=== PATIENT | male | born 1950 | race African-American/Black ===

== ENCOUNTER 2019-06-05 20:42 | Emergency (ER) | payer MEDICARE, MEDICAID, SELFPAY ==
--- NOTE | ~2019-06-05 | CT_ITS ---
EXAMINATION: CT brain wo con DATE: 06/05/2019 22:57 INDICATION: Headache and vision changes. TECHNIQUE: Computed tomography (CT) of the head was performed without intravenous contrast. Sagittal and coronal reconstructions were performed. The mA was adjusted according to patient size. Iterative reconstruction technique was employed. The dose-length product was 756.67 mGy-cm. COMPARISON: head CT dated 09/19/2018 FINDINGS: Again seen is a small to moderate sized region of encephalomalacia in the left frontal lobe consisten t with chronic infarct. Additional small old lacunar infarct at the left lentiform nucleus. No acute intracranial hemorrhage, acute infarction or abnormal extra axial fluid collection. There is mild sca ttered white matter hypoattenuation consistent with chronic small vessel ischemic disease. Ventricles are normal and symmetric with normal developmental variant cavum septum pellucidum et vergae. No mas s/mass effect. The orbits, paranasal sinuses and mastoid air cells are normal. IMPRESSION: 1. No acute intracranial process. 2. 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 3. Mild scattered white matter hypoattenuation consistent with chronic small vessel ischemic disease. Reviewed, dictated and finalized at location A. UME CUTTER IMPRESSION: 1. No acute intracranial process. 2. Chronic small to moderate-sized left frontal lobe infarct and small old lacu isaías infarct at the left lentiform nucleus. 3. Mild scattered white matter hypoattenuation consistent with chronic small ve ssel ischemic disease.
--- NOTE | ~2019-06-05 | XR_ITS ---
EXAMINATION: XR knee RT 3V DATE: 06/05/2019 23:07 INDICATION: Knee pain and swelling TECHNIQUE: Anteroposterior, oblique and crosstable lateral views of the right knee were obtained COMPARISON: 03/04/2019 FINDINGS: Severe tricompartmental osteoarthritis with unchanged remodeling of the articular surfaces at both si eric of the medial compartment resulting in mild genu varus. At least moderate joint space narrowing w ith large marginal osteophytes in the patellofemoral compartment and small marginal osteophyte in the slightly widened lateral compartment. No fracture. Prominent cystic change at the posterolateral asp ect of the lateral tibial plateau which could be related to arthritis at the proximal tibiofibular shun int. Unchanged moderate sized right knee joint effusion at the suprapatellar pouch. IMPRESSION: 1. No significant interval change in severe medial compartment predominant tricompartmental osteoarth ritis with likely reactive moderate-sized right knee joint effusion. No acute osseous abnormality. Reviewed, dictated and finalized at location A. CH MECHANIC IMPRESSION: 1. No significant interval change in severe medial compartment predominant tric ompartmental osteoarthritis with likely reactive moderate-sized right knee join t effusion. No acute osseous abnormality.
--- NOTE | ~2019-06-05 | XR_ITS ---
EXAMINATION: XR chest 2V DATE: 06/05/2019 23:07 INDICATION: Presyncope TECHNIQUE: frontal and lateral views of the chest were obtained. COMPARISON: Chest radiograph dated 12/07/2018 FINDINGS: The lungs remain clear with no focal airspace opacities, pulmonary edema, pleural effusion or pneumot horax. The cardiomediastinal silhouette is normal. Atherosclerotic aorta. There are bridging osteophy dina at multiple levels in the spine, consistent with diffuse idiopathic skeletal hyperostosis (DISH). IMPRESSION: 1. No acute cardiopulmonary disease. Reviewed, dictated and finalized at location A. OR OPERATOR
[2019-06-05 20:45] VITALS: BP 132/74; PULSE 86; RESP 22; TEMP 37.4; O2SAT 100
--- NOTE | 2019-06-05 22:33 | ECG_ITS ---
Measurements Intervals [place] Rate: 67 P: 69 HI: 189 QRS: 55 QRSD: 92 T: 62 QT: 390 QTc: 414 Interpretive Statements SINUS RHYTHM VOLTAGE CRITERIA FOR LVH BORDERLINE ECG Electronically Signed On 06-06-2019 6:45:05 ISOBUTYLENE OPERATOR CHIEF by Cody Stevens D.O.
[2019-06-05 23:05] LABS: Basophils Absolute Auto 0.1 K/mm3 (0.0-0.1); Basophils Percent Auto 0.8 % (0.2-1.2); Eosinophils Absolute Auto 0.1 K/mm3 (0-0.3); Eosinophils Percent Auto 0.8 % (0-4.4); Hematocrit 41.7 % (42.0-52.0); Hemoglobin 13.1 g/dL (14.0-18.0); Immature Granulocyte Absolute 0.01 K/mm3 (0.00-0.031); Immature Granulocyte Percent A 0.1 % (0-0.5); Lymphocytes Absolute Auto 2.88 K/mm3 (0.9-3.2); Lymphocytes Percent Auto 38.9 % (18.3-44.2); Mean Corpuscular HGB Conc 31.4 g/dl (32-36); Mean Corpuscular Hemoglobin 29.1 pg (26-34); Mean Corpuscular Volume 92.7 fl (80-100); Mean Platelet Volume 9.8 fl (7.4-10.4); Monocytes Absolute Auto 0.5 K/mm3 (0.1-0.6); Monocytes Percent Auto 6.9 % (2.6-8.5); Neutrophils Absolute Auto 3.9 K/mm3 (1.3-6.7); Neutrophils Percent Auto 52.5 % (45.5-73.1); Platelet Count Result 242 k/mm3 (150-375); Red Cell Distribution Width 13.2 % (11.5-14.5); White Blood Count 7.4 K/mm3 (4.5-10.0)
[2019-06-05 23:10] VITALS: BP 102/75; PULSE 66; RESP 14; O2SAT 97
[2019-06-05 23:16] LABS: Alanine Aminotransferase 12 U/L (4-50); Albumin Level 4.2 g/dL (3.5-5.1); Alkaline Phosphatase 74 U/L (38-126); Aspartate Amino Transferase 25 U/L (17-59); Bilirubin,Total 0.4 mg/dL (0.2-1.3); Blood Urea Nitrogen 24 mg/dL (9-20); Calcium 9.3 mg/dL (8.4-10.2); Carbon Dioxide 24 mmol/L (22-30); Chloride 104 mmol/L (98-107); Creatine Kinase 212 U/L (55-170); Estimated CRCL calculation 57 ml/min; Estimated Glomerular Filt Rate > 60; Glucose 80 mg/dL (75-110); Potassium 3.9 mmol/L (3.4-5.0); Sodium 137 mmol/L (137-145)
[2019-06-05 23:17] LABS: Lactic Acid Reflex 0.7 mmol/L (0.7-2.1)
[2019-06-05 23:21] LABS: INR 1.2
[2019-06-05 23:22] LABS: Partial Thromboplastin Time 33.5 SECONDS (22.3-36.8)
--- NOTE | 2019-06-05 23:28 | ED.LOWEXIN ---
HPI - Extremity Injury (Lower) General Chief Complaint: Extremity Injury, Lower <ARI Alexandra Last Filed: 06/06/19 01:37> Stated Complaint: leg pain <ARI Alexandra Last Filed: 06/06/19 01:37> Time Seen by Provider: 06/05/19 22:16 <ARI Alexandra Last Filed: 06/06/19 01:37> Source: patient <ARI Alexandra Last Filed: 06/06/19 01:37> Mode of arrival: ambulatory <ARI Alexandra Last Filed: 06/06/19 01:37> Limitations: other (poor historian) <ARI Alexandra Last Filed: 06/06/19 01:37> History of Present Illness HPI Narrative: This is a 68 year old male that presents to the ER for right knee pain x 20 years. Reports he is homeless and was doing a lot of walking the last couple days. Reports increasing pain and swelling in the right knee. Also reports some dysuria. Reports he has had some blurry vision the last couple days. Also reports he almost felt like he was going to pass out. Denies fever, cold symptoms, chest pain, shortness of breath, abdominal pain, vomiting, or eye pain. <ARI Alexandra Last Filed: 06/06/19 01:37> Related Data Allergies/Adverse Reactions: Allergies Allergy/AdvReac Type Severity Reaction Status Date / Time No Known Allergies Allergy Verified 06/05/19 23:17 <ARI Alexandra Last Filed: 06/06/19 01:37> Review of Systems Review of Systems: Narrative: CONSTITUTIONAL: Denies fever EYES: Reports visual change. Denies redness, or discharge. ENT: Denies rhinorrhea, congestion, sore throat CARDIOVASCULAR: Denies chest pain or edema. RESPIRATORY: Denies cough or dyspnea. GASTROINTESTINAL: Denies abdominal pain, nausea, vomiting GENITOURINARY: Reports dysuria. Denies hematuria. NEUROLOGIC: Denies headache, numbness, or weakness. <ARI Alexandra Last Filed: 06/06/19 01:37> All systems reviewed & are unremarkable except as noted in HPI and below <Kristen Gautam PA-C - Last Filed: 06/06/19 01:37> [facility] Past Medical History Medical History: Medical History (Updated 06/06/19 @ 01:37 by Kristen Gautam PA-C) Arthritis History of anxiety History of CHF (congestive heart failure) History of depression <Kristen Gautam PA-C - Last Filed: 06/06/19 01:37> Social History Social History: Social History (Updated 06/06/19 @ 01:30 by Kristen Gautam PA-C) Smoking status: Current every day smoker Substance use type: crack/cocaine Gender identity (if verbalized by the patient): Male <Kristen Gautam PA-C - Last Filed: 06/06/19 01:37> Exam Narrative: Exam Narrative: GENERAL: Well-appearing, well-nourished, and in no acute distress. HEAD: Normocephalic, atraumatic. EYES: EOMI. left pupil larger than the right and irregular. No foreign bodies noted. No conjunctival injection or discharge. Vision 20/70 in both eyes ENT: Nares clear, no rhinorrhea or epistaxis. Mucous membranes moist. Oropharynx without tonsillar hypertrophy exudate or other lesions. Bilateral TMs pearly valencia non-bulging NECK: Supple. No adenopathy or masses. No carotid bruits or JVD CHEST: Clear to auscultation. No respiratory distress. No wheezes rales or rhonchi HEART: Regular rate and rhythm. No murmur heard. Normal peripheral pulses. ABDOMEN: Soft, nontender, nondistended, normal active bowel sounds. EXTREMITIES: Normal range of motion. Mild edema of the right knee, no erythema or warmth. Strength equal in bilateral upper and lower extremities (5/5) SKIN: Warm, dry, no rash. NEURO: No focal deficits. Alert and oriented x3. CN II-XII grossly intact PSYCH: Normal mood and affect <Kristen Gautam PA-C - Last Filed: 06/06/19 01:37> Course Consultations Consultation #1: Spoke with [facility] who would prefer patient be transferred for further evaluation of vision changes <Kristen Gautam PA-C - Last Filed: 06/06/19 01:37> Date: 06/06/19 <Kristen Gautam PA-C - Last Filed: 06/06
[2019-06-06 00:16] LABS: Add Urine Microscopic? YES; Appearance Urine Clear (Clear); Bilirubin Urine Negative (Negative); Blood Urine 1+ (Negative); Color Urine Yellow (Yellow); Glucose Urine UA Negative (Negative); Ketones Urine 1+ mg/dL (Negative); Leukocyte Esterase Ur Negative LEU/UL (Negative); Mucus Urine Rare /lpf; Nitrate Urine Negative (Negative); Protein Urine Negative (Negative); RBC Urine 0-2 /hpf (0-2); Squamous Epithelial Cell Urine Few /hpf (Few)
[2019-06-06 00:25] LABS: Specific Grav Ur 1.031 (1.001-1.035)
[2019-06-06 01:53] VITALS: BP 111/61; PULSE 70; RESP 18; TEMP 37; O2SAT 97
[2019-06-06] MEDS: ACETAMINOPHEN 500 MG TABLET 1000 MG PO (03:19)
[2019-06-06 04:52] VITALS: BP 110/69; PULSE 63; RESP 16; TEMP 36.7; O2SAT 100
[2019-06-06 06:33] VITALS: BP 127/79; PULSE 62; RESP 16; TEMP 36.8; O2SAT 99
== END 2019-06-06 06:36 | disposition short-term general hospital (02) ==
PROVIDERS: Physician Assistant; Emergency Provider Emergency Medicine; PCP Emergency Medicine
DX: H53.8 Other visual disturbances (principal); M19.90 Unspecified osteoarthritis, unspecified site; R30.0 Dysuria; I50.9 Heart failure, unspecified; F41.9 Anxiety disorder, unspecified; F32.9 Major depressive disorder, single episode, unspecified
CPT/HCPCS: 36415; 70450; 71046; 73562; 80053; 81001; 82550; 83605; 85025; 85610; 85730; 87086; 93005; 99285; A9270

== ENCOUNTER 2019-10-01 20:33 | Emergency (ER) | payer MEDICARE, MEDICAID, SELFPAY ==
--- NOTE | ~2019-10-01 | XR_ITS ---
EXAMINATION: XR knee RT min 4V EXAM DATE: 10/01/2019 23:37 INDICATION: No known recent injury provided at this time. Pain of the right knee. TECHNIQUE: Right knee frontal, crosstable lateral, orthogonal oblique projections for interpretation . Comparison is made to prior examination from 06/05/2019. FINDINGS: There is severe patellofemoral and medial tibiofemoral compartment primary osteoarthritis. Again there is moderate-sized right knee joint effusion. There are no acute fractures or dislocation s identified. There is no subcutaneous gas. Faint vascular calcifications. There are no radiopaque foreign bodies. There is no significant interval change. IMPRESSION: 1. Right knee exam without acute osseous findings. 2. Severe osteoarthritis. 3. Moderate joint effusion. Reviewed, dictated and finalized at location A.
[2019-10-01 20:38] VITALS: BP 126/93; PULSE 92; RESP 16; TEMP 36.6; O2SAT 100
--- NOTE | 2019-10-01 21:35 | PC.NURSE ---
Pt states he had an appointment with [facility] for surgery on his eyes, but they cancelled the appointment possibly due to Covid. Pt states he has not been able to get another appointment yet but will keep trying. Pt states his vision is cloudy and has been that way for a few years
[2019-10-01 22:30] VITALS: BP 121/84; PULSE 80; RESP 18; O2SAT 98
[2019-10-02 00:30] VITALS: BP 128/88; PULSE 76; RESP 18; O2SAT 99
[2019-10-02] MEDS: ACETAMINOPHEN 500 MG TABLET 1000 MG PO (00:45)
[2019-10-02] MEDS: POLYMYXIN/TRIMETHOPRIM OPHTH 10 ML DROPS 1 DROP EACH EYE (03:14)
--- NOTE | 2019-10-02 03:44 | ED.LOWEXIN ---
HPI - Extremity Injury (Lower) General Chief Complaint: Extremity Injury, Lower Stated Complaint: right knee pain Time Seen by Provider: 10/01/19 22:21 Source: patient Mode of arrival: ambulatory Limitations: no limitations History of Present Illness HPI Narrative: This patient is a 68 year old homeless male with history of right knee osteoarthritis who presents for evaluation of right knee pain. Patient states he has long standing history of right knee pain and he has been told he needs a knee replacement. He has come for evaluation of his knee because he states there is a bone sticking out . Patient denies no knee injury . Patient also states that his vision is worsening. PAtient states he was seen by eye doctors at [facility] a few months ago for same complaint. He states he was referred to an disease management nurse in [place]. He is unsure of diagnosis but the business card says a glaucoma specialists. He states he has pain to his eyes. He reports he is able to see with both eyes open but it is blurry when he covers one eye. He reports symptoms are worse at night. MD complaint: knee injury Onset (ago): year(s) Related Data Allergies Allergy/AdvReac Type Severity Reaction Status Date / Time No Known Allergies Allergy Verified 06/05/19 23:17 Review of Systems Review of Systems: All systems reviewed & are unremarkable except as noted in HPI and below Constitutional: Constitutional: Denies chills, Denies fever(s) and Denies weakness Eyes: Eyes: Reports blurry vision, Denies exophthalmos, Denies diplopia, Denies spots in vision and Denies tunnel vision ENT: Denies dizziness Cardiovascular: Cardiovascular: Denies chest pain Musculoskeletal: Musculoskeletal: Reports arthralgias and Reports joint swelling PMFSH Past Medical History Medical History (Updated 10/02/19 @ 04:02 by Mouna Almanzar MD) Arthritis History of anxiety History of CHF (congestive heart failure) History of depression Social History Social History (Updated 06/06/19 @ 01:30 by Kristen Gautam PA-C) Smoking status: Current every day smoker Substance use type: crack/cocaine Gender identity (if verbalized by the patient): Male Exam Narrative: Exam Narrative: GENERAL: Well-appearing, well-nourished, and in no acute distress. HEAD: Normocephalic, atraumatic EARS: TM's clear bilaterally without erythema or dullness NOSE: Nares clear, no rhinorrhea or epistaxis THROAT:Mucous membranes moist, Oropharynx normal without erythema, exudate, peritonsillar swelling or fluctuance NECK: Supple, without lymphadenopathy or mass RESPIRATORY: No respiratory distress, Airway patent, Respirations non-labored, Clear to auscultation without rales, rhonchi or wheeze HEART: Regular rate and rhythm. No murmur heard. Normal peripheral pulses. ABDOMEN: Soft, nontender, nondistended, normal active bowel sounds. No masses. No rebound or guarding, No organomegaly. SKIN: Warm, dry, normal color without rash NEURO: Alert and oriented x3. CN 2-12 grossly intact. No focal deficits. PSYCH: Normal mood and affect. Eyes: Eyelids: eyelids normal Conjunctivae: conjunctivae normal Cornea: corneas abnormal (small linear uptake to lower left cornea) and fluorescein used Pupils: not dilated and Pupil size comments (right 2 with left 4 mm Reactive) EOM: EOMs intact bilaterally Direct Ophthalmoscopy: No no photophobia Other: Ocular pressure to right- 10 left - 9 Neuro: General: patient oriented x3 and moves all extremities Other: patient able to ambulate with mild limp Extrem: Other: mild swelling to right knee, no increased warmth or erythema Course Reevaluation(s) Reevaluation #1: Patient does not have elevated eye pressure. He does have mild abrasion so will give drops. I have stressed the he needs to follow up with his disease management nurse . His knee is stable Date: 10/02/19 Time: 03:58 Vital Signs Vital signs: Vital Signs Temperature
== END 2019-10-02 07:07 | disposition home or self-care (01) ==
PROVIDERS: Emergency Provider General Practice
DX: M17.11 Unilateral primary osteoarthritis, right knee (principal); H53.8 Other visual disturbances; I50.9 Heart failure, unspecified; F17.200 Nicotine dependence, unspecified, uncomplicated
CPT/HCPCS: 73564; 99283; A9270

== ENCOUNTER 2020-01-09 21:50 | Emergency (ER) | payer MEDICARE, MEDICAID, SELFPAY ==
[2020-01-09 22:16] VITALS: BP 124/49; PULSE 69; RESP 16; TEMP 36.4; O2SAT 100
[2020-01-09 22:34] LABS: Add Urine Microscopic? YES; Appearance Urine Clear (Clear); Bilirubin Urine Negative (Negative); Blood Urine 1+ (Negative); Color Urine Yellow (Yellow); Glucose Urine UA Negative (Negative); Ketones Urine Negative (Negative); Leukocyte Esterase Ur Negative LEU/UL (Negative); Mucus Urine Few /lpf; Nitrate Urine Negative (Negative); Protein Urine Negative (Negative); Squamous Epithelial Cell Urine Few /hpf (Few); WBC Urine 0-3 /hpf
[2020-01-09 22:39] LABS: Specific Grav Ur 1.032 (1.001-1.035)
[2020-01-10 00:25] VITALS: BP 118/51; PULSE 63; RESP 16; TEMP 36.2; O2SAT 100
--- NOTE | 2020-01-10 00:40 | ED.BACK ---
HPI - Back Pain/Injury General Chief Complaint: Back Pain/Injury Stated Complaint: back pain Time Seen by Provider: 01/10/20 00:40 History of Present Illness HPI Narrative: Sudden onset of pain in left flank and LUQ shortly before arrival here. Started after eating. He denies having this in the past. No wekaness, numbness, injury. He has not tried anything for his sy,ptoms Related Data Allergies Allergy/AdvReac Type Severity Reaction Status Date / Time No Known Allergies Allergy Verified 06/05/19 23:17 Review of Systems Review of Systems: All systems reviewed & are unremarkable except as noted in HPI and below Constitutional: Constitutional: Denies fever(s) and Denies weakness Cardiovascular: Cardiovascular: Denies chest pain Respiratory: Respiratory: Denies dyspnea Gastrointestinal: Gastrointestinal: Reports abdominal pain, Denies constipation, Denies diarrhea and Denies nausea Genitourinary: Genitourinary: Denies hematuria and Reports dysuria Musculoskeletal: Musculoskeletal: Reports back pain Neurologic: Denies dizziness and Denies weakness [facility] Past Medical History Medical History Arthritis History of anxiety History of CHF (congestive heart failure) History of depression Social History Social History Smoking status: Current every day smoker Substance use type: crack/cocaine Gender identity (if verbalized by the patient): Male Exam Const: General: no acute distress and alert Orientation/consciousness: patient oriented x3 HENMT: Head: normal to inspection Chest: Chest palpation & inspection: normal inspection of the chest and no tenderness Resp: Effort & Inspection: normal respiratory effort Auscultation: clear to auscultation bilaterally Cardio: Rate: regular rate Rhythm: regular rhythm GI: Other: Nondistended, nontender Back/Spine/Pelvis: Back: no CVA tenderness Skin: General skin exam: normal color Neuro: General: patient oriented x3, moves all extremities, no focal motor deficits and CN's II-XI intact bilaterally Speech: normal speech Extrem: General: normal to inspection and no edema Course Vital Signs Vital signs: Vital Signs Temperature 36.4 C 01/09/20 22:16 Pulse Rate 69 01/09/20 22:16 Respiratory Rate 16 01/09/20 22:16 Blood Pressure 124/49 L 01/09/20 22:16 Pulse Oximetry 100 01/09/20 22:16 Temperature 36.2 C L 01/10/20 00:25 Pulse Rate 67 01/10/20 03:28 Respiratory Rate 16 01/10/20 03:28 Blood Pressure 129/71 01/10/20 03:28 Pulse Oximetry 97 01/10/20 03:28 MDM - Back Pain/Injury MDM Narrative Medical decision making narrative: Exam and history benign. Labs unremarkable. Pain improved with tylenol and toradol. Differential Diagnosis Differential diagnosis: Likely sciatica, strain of lumbar region, renal colic and pyelonephritis Medical Records Attestation: I reviewed the patient's medical records. Lab Data Attestation: I reviewed the patient's lab results. Result diagrams: 01/10/20 01:19 01/10/20 01:19 Labs: Lab Results 01/09/20 01/10/20 01/10/20 Range/Units 22:22 01:19 01:19 WBC 6.2 (4.5-10.0) K/mm3 RBC 4.03 L (4.6-6.20) M/mm3 Hgb 12.0 L (14.0-18.0) g/dL Hct 37.9 L (42.0-52.0) % MCV 94.0 (80-100) fl MCH 29.8 (26-34) pg MCHC 31.7 L (32-36) g/dl RDW 13.9 (11.5-14.5) % Plt Count 234 (150-375) k/mm3 MPV 9.5 (7.4-10.4) fl Immature Gran % (Auto) 0.2 (0-0.5) % Neut % (Auto) 52.2 (45.5-73.1) % Lymph % (Auto) 38.2 (18.3-44.2) % Sanders % (Auto) 6.9 (2.6-8.5) % Eos % (Auto) 1.9 (0-4.4) % Baso % (Auto) 0.6 (0.2-1.2) % Lymph # (Auto) 2.37 (0.9-3.2) K/mm3 Sanders # (Auto) 0.4 (0.1-0.6) K/mm3 Eos # (Auto) 0.1 (0-0.3) K/mm3 Baso # (Auto) 0.0 (0.0-0.1) K/mm3 Abs Immat Gran (auto) 0.01 (
[2020-01-10 01:28] LABS: Basophils Percent Auto 0.6 % (0.2-1.2); Eosinophils Absolute Auto 0.1 K/mm3 (0-0.3); Eosinophils Percent Auto 1.9 % (0-4.4); Hematocrit 37.9 % (42.0-52.0); Immature Granulocyte Absolute 0.01 K/mm3 (0.00-0.031); Immature Granulocyte Percent A 0.2 % (0-0.5); Lymphocytes Absolute Auto 2.37 K/mm3 (0.9-3.2); Lymphocytes Percent Auto 38.2 % (18.3-44.2); Mean Corpuscular HGB Conc 31.7 g/dl (32-36); Mean Corpuscular Hemoglobin 29.8 pg (26-34); Mean Platelet Volume 9.5 fl (7.4-10.4); Monocytes Absolute Auto 0.4 K/mm3 (0.1-0.6); Monocytes Percent Auto 6.9 % (2.6-8.5); Neutrophils Absolute Auto 3.2 K/mm3 (1.3-6.7); Neutrophils Percent Auto 52.2 % (45.5-73.1); Platelet Count Result 234 k/mm3 (150-375); Red Blood Count 4.03 M/mm3 (4.6-6.20); Red Cell Distribution Width 13.9 % (11.5-14.5); White Blood Count 6.2 K/mm3 (4.5-10.0)
[2020-01-10 01:45] LABS: Alanine Aminotransferase 8 U/L (4-50); Albumin Level 3.7 g/dL (3.5-5.1); Alkaline Phosphatase 53 U/L (38-126); Anion Gap 5 mmol/L (8-16); Aspartate Amino Transferase 18 U/L (17-59); Bilirubin,Total 0.4 mg/dL (0.2-1.3); Blood Urea Nitrogen 23 mg/dL (9-20); Calcium 8.4 mg/dL (8.4-10.2); Carbon Dioxide 25 mmol/L (22-30); Chloride 109 mmol/L (98-107); Estimated CRCL calculation 53 ml/min; Estimated Glomerular Filt Rate > 60; Glucose 83 mg/dL (75-110); Sodium 139 mmol/L (137-145)
[2020-01-10 01:50] LABS: Lipase 282 U/L (23-300)
[2020-01-10 02:30] VITALS: BP 127/74; PULSE 60; RESP 17; O2SAT 99
[2020-01-10] MEDS: KETOROLAC (*BKC) 60 MG/2 ML VIAL IM (02:53)
[2020-01-10 03:28] VITALS: BP 129/71; PULSE 67; RESP 16; O2SAT 97
== END 2020-01-10 03:33 | disposition home or self-care (01) ==
PROVIDERS: Emergency Provider Emergency Medicine
DX: R10.32 Left lower quadrant pain (principal); M54.9 Dorsalgia, unspecified; M19.90 Unspecified osteoarthritis, unspecified site; I50.9 Heart failure, unspecified; F17.200 Nicotine dependence, unspecified, uncomplicated
CPT/HCPCS: 36415; 80053; 81001; 83690; 85025; 96372; 99283; J1885

== ENCOUNTER 2020-03-23 16:41 | Emergency (ER) | payer MEDICARE, MEDICAID, SELFPAY ==
[2020-03-23 16:44] VITALS: BP 135/55; PULSE 100; RESP 18; TEMP 36.4; O2SAT 100
--- NOTE | 2020-03-23 17:10 | PC.NURSE ---
patient brought back to ED room 21 with c/o right knee pain and vision changes. see triage notes. patient states he knows that I have glaucoma . states that during this pandemic he has not been able to see a physician or be treated. also needs set up for knee surgery. states he was seen here in the past and advised he needed a knee replacement. advised patient that glaucoma cannot be treated in ED. patient is mainly here for referral to [place] to get this all taken care of .
--- NOTE | 2020-03-23 17:49 | PC.NURSE ---
provider in room.
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
--- NOTE | 2020-03-23 18:10 | PC.NURSE ---
per provider, patient will be given contact number at [facility]. patient to call [phone] for assistance.they can set up all follow up appointments that patient needs.
== END 2020-03-23 18:54 | disposition home or self-care (01) ==
PROVIDERS: Emergency Provider Emergency Medicine
DX: M17.11 Unilateral primary osteoarthritis, right knee (principal); I50.9 Heart failure, unspecified; F17.200 Nicotine dependence, unspecified, uncomplicated
CPT/HCPCS: 99281

== ENCOUNTER 2020-04-04 23:34 | Emergency (ER) | payer MEDICARE, MEDICAID, SELFPAY ==
[2020-04-04 23:37] VITALS: BP 136/59; PULSE 77; RESP 16; TEMP 36.6; O2SAT 99
--- NOTE | 2020-04-05 00:02 | ED.ABDPAIN ---
HPI - Abdominal Pain General Chief Complaint: Urogenital-Male Stated Complaint: low back pain Time Seen by Provider: 04/04/20 23:52 History of Present Illness HPI narrative: Lower abdominal pain for the past few days. Associated with difficulty and pain with urination. No fever, chills, nausea, vomiting, diarrhea. Related Data Allergies Allergy/AdvReac Type Severity Reaction Status Date / Time No Known Allergies Allergy Verified 04/04/20 23:43 Review of Systems Review of Systems: All systems reviewed & are unremarkable except as noted in HPI and below Constitutional: Constitutional: Denies chills and Denies fever(s) Cardiovascular: Cardiovascular: Denies chest pain Respiratory: Respiratory: Denies dyspnea Gastrointestinal: Gastrointestinal: Reports abdominal pain, Denies constipation, Denies diarrhea, Denies nausea and Denies vomiting Genitourinary: Genitourinary: Reports dysuria Musculoskeletal: Musculoskeletal: Reports back pain Neurologic: Denies confusion and Denies weakness PMFSH Past Medical History Medical History Arthritis History of anxiety History of CHF (congestive heart failure) History of depression Social History Social History Smoking status: Current every day smoker Substance use type: crack/cocaine Gender identity (if verbalized by the patient): Male Exam Const: General: healthy appearing, no acute distress and alert Orientation/consciousness: patient oriented x3 HENMT: Head: normal to inspection Neck: Neck: normal visual inspection and no lymphadenopathy Chest: Chest palpation & inspection: no tenderness Resp: Effort & Inspection: normal respiratory effort Auscultation: clear to auscultation bilaterally, no rales, no rhonchi and no wheezes Cardio: Jugular venous distension: no JVD Rate: regular rate Rhythm: regular rhythm Heart sounds: no murmurs GI: Inspection: non-distended GI Palp: Yes Soft to palpation : General: Yes Bladder palpation abnormal tender; not distended Skin: General skin exam: normal color Neuro: General: patient oriented x3, moves all extremities, no focal motor deficits and CN's II-XI intact bilaterally Speech: normal speech Gait exam (Neuro): Normal gait present Extrem: General: no edema Psych: Appearance: well kempt Affect: normal affect Course Vital Signs Vital signs: Vital Signs Temperature 36.6 C 12/04/20 23:37 Pulse Rate 77 04/04/20 23:37 Respiratory Rate 16 04/04/20 23:37 Blood Pressure 136/59 L 04/04/20 23:37 Pulse Oximetry 99 04/04/20 23:37 Temperature 36.6 C 04/04/20 23:37 Pulse Rate 68 04/05/20 05:15 Respiratory Rate 16 04/05/20 05:15 Blood Pressure 108/72 04/05/20 05:15 Pulse Oximetry 98 04/05/20 05:15 MDM - Abdominal Pain Differential Diagnosis Differential diagnosis: Likely calculus of kidney, constipation, diverticulitis, pancreatitis and other (UTI) Medical Records Attestation: I reviewed the patient's medical records. Lab Data Attestation: I reviewed the patient's lab results. Result diagrams: 04/05/20 01:00 04/05/20 01:00 Labs: Lab Results 04/05/20 04/05/20 04/05/20 Range/Units 01:00 01:00 01:00 WBC 6.4 (4.5-10.0) K/mm3 RBC 4.52 L (4.6-6.20) M/mm3 Hgb 14.2 (14.0-18.0) g/dL Hct 42.0 (42.0-52.0) % MCV 92.9 (80-100) fl MCH 31.4 (26-34) pg MCHC 33.8 (32-36) g/dl RDW 13.3 (11.5-14.5) % Plt Count 253 (150-375) k/mm3 MPV 10.3 (7.4-10.4) fl Immature Gran % (Auto) 0.6 H (0-0.5) % Neut % (Auto) 51.5 (45.5-73.1) % Lymph % (Auto) 38.6 (18.3-44.2) % [place] % (Auto) 7.5 (2.6-8.5) % Eos % (Auto) 0.9 (0-4.4) % Baso % (Auto) 0.9 (0.2-1.2) % Lymph # (Auto) 2.48 (0.9-3.2) K/mm3 [place] # (Auto) 0.5 (0.1-0.6) K/mm3 Eos # (Auto) 0.1 (0-0.3) K/mm3 Bas
[2020-04-05] MEDS: SODIUM CHLORIDE 0.9% IV 1,000 ML 999 ML IV CONT (01:00)
[2020-04-05 01:15] LABS: Basophils Absolute Auto 0.1 K/mm3 (0.0-0.1); Basophils Percent Auto 0.9 % (0.2-1.2); Eosinophils Absolute Auto 0.1 K/mm3 (0-0.3); Eosinophils Percent Auto 0.9 % (0-4.4); Hemoglobin 14.2 g/dL (14.0-18.0); Immature Granulocyte Absolute 0.04 K/mm3 (0.00-0.031); Immature Granulocyte Percent A 0.6 % (0-0.5); Lymphocytes Absolute Auto 2.48 K/mm3 (0.9-3.2); Lymphocytes Percent Auto 38.6 % (18.3-44.2); Mean Corpuscular HGB Conc 33.8 g/dl (32-36); Mean Corpuscular Hemoglobin 31.4 pg (26-34); Mean Corpuscular Volume 92.9 fl (80-100); Mean Platelet Volume 10.3 fl (7.4-10.4); Monocytes Absolute Auto 0.5 K/mm3 (0.1-0.6); Monocytes Percent Auto 7.5 % (2.6-8.5); Neutrophils Absolute Auto 3.3 K/mm3 (1.3-6.7); Neutrophils Percent Auto 51.5 % (45.5-73.1); Platelet Count Result 253 k/mm3 (150-375); Red Blood Count 4.52 M/mm3 (4.6-6.20); Red Cell Distribution Width 13.3 % (11.5-14.5); White Blood Count 6.4 K/mm3 (4.5-10.0)
[2020-04-05 01:23] LABS: Alanine Aminotransferase 10 U/L (4-50); Albumin Level 4.1 g/dL (3.5-5.1); Alkaline Phosphatase 64 U/L (38-126); Anion Gap 8 mmol/L (8-16); Aspartate Amino Transferase 23 U/L (17-59); Bilirubin,Total 0.4 mg/dL (0.2-1.3); Blood Urea Nitrogen 27 mg/dL (9-20); Calcium 9.1 mg/dL (8.4-10.2); Carbon Dioxide 26 mmol/L (22-30); Chloride 108 mmol/L (98-107); Estimated CRCL calculation 44 ml/min; Estimated Glomerular Filt Rate > 60; Glucose 106 mg/dL (75-110); Potassium 4.1 mmol/L (3.4-5.0); Sodium 142 mmol/L (137-145)
[2020-04-05 01:27] LABS: Add Urine Microscopic? YES; Appearance Urine Clear (Clear); Bacteria Urine Trace /hpf; Bilirubin Urine 2+ (Negative); Color Urine Amber (Yellow); Glucose Urine UA Negative (Negative); Ketones Urine Trace mg/dL (Negative); Leukocyte Esterase Ur 1+ LEU/UL (Negative); Mucus Urine Heavy /lpf; Nitrate Urine Negative (Negative); Protein Urine 1+ mg/dL (Negative); Squamous Epithelial Cell Urine Few /hpf (Few); WBC Urine 51-75 /hpf
[2020-04-05 01:29] LABS: INR 1.1; Partial Thromboplastin Time 31.5 SECONDS (22.3-36.8); Prothrombin Time 14.3 Seconds (11.1-14.7)
[2020-04-05 01:32] LABS: Blood Urine Negative (Negative); Specific Grav Ur 1.035 (1.001-1.035)
[2020-04-05 01:43] VITALS: BP 110/64; PULSE 62; RESP 16; O2SAT 98
[2020-04-05 05:15] VITALS: BP 108/72; PULSE 68; RESP 16; O2SAT 98
== END 2020-04-05 05:16 | disposition home or self-care (01) ==
PROVIDERS: Emergency Provider Emergency Medicine
DX: N39.0 Urinary tract infection, site not specified (principal); F17.200 Nicotine dependence, unspecified, uncomplicated; M19.90 Unspecified osteoarthritis, unspecified site; I50.9 Heart failure, unspecified
CPT/HCPCS: 36415; 80053; 81001; 85025; 85610; 85730; 87077; 87086; 87088; 96365; 99284; J0696; J7030

== ENCOUNTER 2020-09-23 09:34 | Emergency (ER) | payer MEDICARE, MEDICAID, SELFPAY ==
[2020-09-23] VITALS (15 sets, daily range): BP systolic 117–147; BP diastolic 53–85; PULSE 53–75; RESP 12–22; TEMP 36.3; O2SAT 98–100
--- NOTE | ~2020-09-23 | CT_ITS ---
EXAMINATION: CTA brain carotid DATE: 09/23/2020 10:24 INDICATION: Altered mental status. Confusion. TECHNIQUE: Computed tomographic angiography (CTA) of the head was performed without and with 100 mL O mnipaque-350 intravenous contrast. CTA of the neck was performed with intravenous contrast. Automated exposure control and iterative reconstruction technique were employed. The dose-length product was 1 869.50 mGy-cm. Maximum intensity projection and volume rendered 3D-reconstructions were created by vero dasilva technologist on a separate workstation. COMPARISON: Head CT 06/05/2019 FINDINGS: HEAD CTA: There is an old lacunar infarct in the left lentiform nucleus. There is an old infarct in l eft frontal lobe. There is a small old infarct in right parietal lobe. There are scattered areas of l ow attenuation in the cerebral white matter. There is no intracranial hemorrhage, acute infarction, o r abnormal intracranial mass lesion. The ventricles are normal in size. The orbits are normal. There is mild mucosal thickening in the paranasal sinuses. There is a trace right mastoid effusion. There i s multifocal dental disease. Right vertebral artery is dominant. There is no significant stenosis of basilar artery or the posterior cerebral arteries. The posterior communicating arteries are normal. T here is no significant stenosis of the intracranial internal carotid arteries or anterior cerebral ar teries. There is severe stenosis of proximal left middle cerebral artery. Anterior communicating brendan ry is normal. There is no aneurysm. NECK CTA: There is mild emphysema. There are no pathologically enlarged lymph nodes. There are nodule s in the thyroid measuring up to 7 mm, likely not clinically significant. 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 There is no significant stenosis of the vertebral arteries. There is plaque in t he proximal internal carotid arteries. There is 0% stenosis of the proximal right internal carotid ar garcia relative to normal distal artery lumen diameter (NASCET criteria). There is 0% stenosis of the p roximal left internal carotid artery relative to normal distal artery lumen diameter. There is severe cervical spondylosis. IMPRESSION: 1. 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 2. Stable moderate nonspecific cerebral white matter disease, which likely represents chronic small v essel ischemic disease. 3. Severe stenosis of proximal left middle cerebral artery. 4. 0% stenosis of the proximal internal carotid arteries relative to normal distal artery lumen diame ters (NASCET criteria). 5. I discussed this case with Dr. Pinto. Reviewed, dictated and finalized at location B. IMPRESSION: 1. Old infarcts in the left lentiform nucleus, left frontal lobe, and right par ietal lobe. 2. Stable moderate nonspecific cerebral white matter disease, which likely repr esents chronic small vessel ischemic disease. 3. Severe stenosis of proximal left middle cerebral artery. 4. 0% stenosis of the proximal internal carotid arteries relative to normal dis katie artery lumen diameters (NASCET criteria). 5. I discussed this case with Dr. Pinto.
--- NOTE | 2020-09-23 09:37 | ECG_ITS ---
Measurements Intervals [place] Rate: 61 P: 60 MA: 190 QRS: 37 QRSD: 90 T: 58 QT: 418 QTc: 421 Interpretive Statements SINUS RHYTHM EARLY PRECORDIAL R/S TRANSITION BASELINE ARTIFACT- I, II, III, AVR, AVL, AVF, V4-V6 BORDERLINE ECG Electronically Signed On 09-23-2020 10:04:35 CDT by Cody Stevens D.O.
[2020-09-23 09:52] LABS: Glucose Point of Care 119 mg/dl (65-105)
--- NOTE | 2020-09-23 10:01 | PC.NURSE ---
Pt off floor to CT via cart, accompanied by this RN, transport monitor applied
--- NOTE | 2020-09-23 10:02 | ED.GENADULT ---
HPI - General Adult General Chief complaint: Suspected CVA Stated complaint: CVA? 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 Patient reportedly was talking normal around 7:45 AM when his corporate physical security supervisor spoke with him on the phone. However, when his coworker was picking him up from bus stop around 8:30 AM, he was wondering around and having trouble talking. He also complains of some headache and right sided weakness. He states that he weakness started about the time he was being picked up for work. There is no known alleviating or exacerbating factor. Related Data Allergies Allergy/AdvReac Type Severity Reaction Status Date / Time No Known Allergies Allergy Verified 04/04/20 23:43 Review of Systems Constitutional: Constitutional: Denies chills, Denies fever(s), Reports headache(s) and Reports weakness Eyes: Eyes: Denies blurry vision ENT: Reports headache(s) and Denies neck pain Cardiovascular: Cardiovascular: Denies chest pain and Denies dyspnea Respiratory: Respiratory: Denies cough and Denies dyspnea Gastrointestinal: Gastrointestinal: Denies abdominal pain, Denies diarrhea, Denies nausea and Denies vomiting Genitourinary: Genitourinary: Denies hematuria and Denies dysuria Musculoskeletal: Musculoskeletal: Denies back pain and Denies neck pain Neurologic: Reports Abnormal speech present, Reports headache(s) and Reports weakness PMFSH Past Medical History Medical History (Updated 09/23/20 @ 14:52 by Evelin Pinto MD) Arthritis History of anxiety History of CHF (congestive heart failure) History of depression Social History Social History Smoking status: Current every day smoker Substance use type: crack/cocaine Gender identity (if verbalized by the patient): Male Exam Const: General: no acute distress and well developed Orientation/consciousness: oriented to person and oriented to place HENMT: Head: normocephalic Ears: external ears normal General nose exam: Normal external nose present Eyes: General: appearance normal, both eyes and all related structures Conjunctivae: conjunctivae normal Neck: Neck: normal visual inspection and full ROM Chest: Chest palpation & inspection: normal inspection of the chest and no tenderness Resp: Effort & Inspection: normal respiratory effort Auscultation: clear to auscultation bilaterally Cardio: Rate: regular rate Rhythm: regular rhythm GI: GI Palp: No abdominal tenderness and Yes Soft to palpation Skin: General skin exam: normal color and turgor normal Neuro: General: oriented to person and oriented to place Extrem: General: normal to inspection, full ROM and no pedal edema Psych: Appearance: grossly normal Mental Status: mental status grossly normal Affect: normal affect Course Reevaluation(s) Reevaluation #1: Rechecked. Patient still has right sided weakness and difficulty with speech. Discussed with patient about tPA for presumed stroke. Informed patient about the risks and benefits. The main risks include bleeding and allergic reaction. Patient agrees to proceed. Date: 09/23/20 Time: 10:45 Consultations Consultation #1: Discussed with Dr. Morales (neurology) at [place], who agrees to transfer patient to [facility]. Date: 09/23/20 Time: 11:14 Vital Signs Vital signs: Vital Signs Temperature 36.3 C L 09/23/20 09:41 Pulse Rate 62 09/23/20 09:41 Respiratory Rate 13 09/23/20 09:41 Blood Pressure 147/85 H 09/23/20 09:41 Pulse Oximetry 100 09/23/20 09:41 Temperature 36.3 C L 09/23/20 09:41 Pulse Rate 53 L 09/23/20 15:12 Respiratory Rate 12 09/23/20 15:12 Blood Pressure 145/85 H 09/23/20 15:12 Pulse Oximetry 98 09/23/20 15:12 Medical Decision Making Vital Signs Vital Signs: Vital Sign
[2020-09-23 10:03] LABS: Basophils Percent Auto 0.5 % (0.2-1.2); Eosinophils Absolute Auto 0.1 K/mm3 (0-0.3); Eosinophils Percent Auto 1.2 % (0-4.4); Hematocrit 44.4 % (42.0-52.0); Hemoglobin 14.3 g/dL (14.0-18.0); Immature Granulocyte Absolute 0.02 K/mm3 (0.00-0.031); Immature Granulocyte Percent A 0.3 % (0-0.5); Lymphocytes Percent Auto 17.8 % (18.3-44.2); Mean Corpuscular HGB Conc 32.2 g/dl (32-36); Mean Corpuscular Hemoglobin 29.9 pg (26-34); Mean Corpuscular Volume 92.7 fl (80-100); Mean Platelet Volume 9.8 fl (7.4-10.4); Monocytes Absolute Auto 0.4 K/mm3 (0.1-0.6); Monocytes Percent Auto 4.8 % (2.6-8.5); Neutrophils Absolute Auto 5.5 K/mm3 (1.3-6.7); Neutrophils Percent Auto 75.4 % (45.5-73.1); Platelet Count Result 230 k/mm3 (150-375); Red Blood Count 4.79 M/mm3 (4.6-6.20); Red Cell Distribution Width 13.5 % (11.5-14.5); White Blood Count 7.3 K/mm3 (4.5-10.0)
[2020-09-23 10:04] LABS: Estimated Glomerular Filt Rate > 60
[2020-09-23 10:17] LABS: INR 1.1; Prothrombin Time 14.7 Seconds (11.1-14.7)
[2020-09-23 10:18] LABS: Partial Thromboplastin Time 28.8 SECONDS (22.3-36.8)
--- NOTE | 2020-09-23 10:19 | PC.NURSE ---
Pt returned from CT. Speech more clear but still aphasic, cannot find his words. Reports R side headache just stays there and vision changes, pt clutching head with hand. [place] applied, call light within reach
--- NOTE | 2020-09-23 10:50 | PC.NURSE ---
Dr Pinto at bedside for reassessment, plan for tPA, pt agreeable. Pt stood up onto scale with x2 stand-by assist, urinated on self, all clothes removed and changed into clean gown, linens changed
[2020-09-23 11:11] LABS: Alanine Aminotransferase 10 U/L (4-50); Albumin Level 4.4 g/dL (3.5-5.1); Alkaline Phosphatase 85 U/L (38-126); Anion Gap 7 mmol/L (8-16); Aspartate Amino Transferase 26 U/L (17-59); Bilirubin,Total 0.4 mg/dL (0.2-1.3); Blood Urea Nitrogen 19 mg/dL (9-20); Calcium 9.1 mg/dL (8.4-10.2); Carbon Dioxide 28 mmol/L (22-30); Chloride 107 mmol/L (98-107); Estimated Glomerular Filt Rate > 60; Glucose 85 mg/dL (75-110); Potassium 4.4 mmol/L (3.4-5.0); Sodium 142 mmol/L (137-145)
--- NOTE | 2020-09-23 11:21 | PC.NURSE ---
Pt resting on cart, easily arousable, non-labored respirations. tPA infusion running, q15 neuro checks in progress, pt tolerating well SB on monitor HR in 50's, 100% RA sats, normotensive
--- NOTE | 2020-09-23 11:31 | PC.NURSE ---
Spoke with Carmencita at transfer access line - States pt will be going to [facility]. They will call when [facility] has a bed available
--- NOTE | 2020-09-23 12:27 | PC.NURSE ---
Report called to Ida BALTAZAR at [facility] ([phone], ICU #[id number], Dr. Morales) [place] ETA 2 hrs
--- NOTE | 2020-09-23 14:20 | PC.NURSE ---
Pt asleep easily arousable, non-labored respirations. When awoken pt states he feels the same , reports R side headache. Awaiting transport to [facility]
== END 2020-09-23 15:42 | disposition short-term general hospital (02) ==
PROVIDERS: Emergency Provider Emergency Medicine
DX: I63.9 Cerebral infarction, unspecified (principal); I66.02 Occlusion and stenosis of left middle cerebral artery; M19.90 Unspecified osteoarthritis, unspecified site; I50.9 Heart failure, unspecified; F17.200 Nicotine dependence, unspecified, uncomplicated; R94.31 Abnormal electrocardiogram [ECG] [EKG]; R29.705 NIHSS score 5; R53.1 Weakness
CPT/HCPCS: 36415; 37195; 70496; 70498; 80053; 82948; 85025; 85610; 85730; 93005; 99285; J2997; Q9967

== ENCOUNTER 2021-02-15 17:42 | Emergency (ER) | payer MEDICARE, SELFPAY ==
[2021-02-15] VITALS (9 sets, daily range): BP systolic 131–139; BP diastolic 65–78; PULSE 71–88; RESP 16–24; TEMP 36.6; O2SAT 96–100
--- NOTE | ~2021-02-15 | XR_ITS ---
EXAMINATION: XR chest 1V DATE: 02/15/2021 18:18 INDICATION: Delayed speech. TECHNIQUE: A single frontal view of the chest was obtained. COMPARISON: Chest 2 views 06/05/2019 FINDINGS: The chest demonstrates clear lungs without pneumonia, pleural effusion, or pneumothorax. Th e heart size is normal. IMPRESSION: 1. No acute cardiopulmonary disease. Reviewed, dictated and finalized at location A.
--- NOTE | ~2021-02-15 | CT_ITS ---
EXAMINATION: CT brain wo con DATE: 02/15/2021 18:16 INDICATION: Delayed speech. TECHNIQUE: Computed tomography (CT) of the head was performed without intravenous contrast. The mA wa s adjusted according to patient size. Iterative reconstruction technique was employed. The dose-lengt h product was 605.33 mGy-cm. COMPARISON: Head CT 09/23/2020 FINDINGS: There are old infarcts involving the left basal ganglia and left frontal and parietal lobes . There is a small old infarct in right parietal lobe. There is no intracranial hemorrhage, acute inf arction, or abnormal intracranial mass lesion. There are scattered areas of low attenuation in the ce rebral white matter. The ventricles are normal in size. The orbits are normal. There is mild mucosal thickening in the paranasal sinuses. The mastoid air cells are normal. IMPRESSION: 1. Old infarcts involving the left basal ganglia, left frontal and parietal lobes, and right parietal lobe. 2. Stable moderate nonspecific cerebral white matter disease, which likely represents chronic small v essel ischemic disease. Reviewed, dictated and finalized at location A. IMPRESSION: 1. Old infarcts involving the left basal ganglia, left frontal and parietal lob es, and right parietal lobe. 2. Stable moderate nonspecific cerebral white matter disease, which likely repr esents chronic small vessel ischemic disease.
--- NOTE | 2021-02-15 17:53 | ECG_ITS ---
Measurements Intervals [place] Rate: 84 P: 70 [place]: 200 QRS: 64 QRSD: 98 T: 69 QT: 344 QTc: 408 Interpretive Statements SINUS RHYTHM EARLY PRECORDIAL R/S TRANSITION MINIMAL Q WAVES- ANTEROLATERAL LEADS BASELINE ARTIFACT- I, II, AVR, AVL, V1 BORDERLINE ECG Electronically Signed On 02-15-2021 20:30:06 CDT by Cody Stevens D.O.
[2021-02-15 17:57] LABS: Glucose Point of Care 136 mg/dl (65-105)
[2021-02-15 18:05] LABS: Basophils Percent Auto 0.5 % (0.2-1.2); Hematocrit 42.5 % (42.0-52.0); Hemoglobin 13.5 g/dL (14.0-18.0); Immature Granulocyte Absolute 0.01 K/mm3 (0.00-0.031); Immature Granulocyte Percent A 0.2 % (0-0.5); Lymphocytes Percent Auto 18.8 % (18.3-44.2); Mean Corpuscular HGB Conc 31.8 g/dl (32-36); Mean Corpuscular Hemoglobin 30.5 pg (26-34); Mean Corpuscular Volume 96.2 fl (80-100); Mean Platelet Volume 9.5 fl (7.4-10.4); Monocytes Absolute Auto 0.6 K/mm3 (0.1-0.6); Monocytes Percent Auto 14.1 % (2.6-8.5); Neutrophils Absolute Auto 2.8 K/mm3 (1.3-6.7); Neutrophils Percent Auto 66.4 % (45.5-73.1); Platelet Count Result 185 k/mm3 (150-375); Red Blood Count 4.42 M/mm3 (4.6-6.20); Red Cell Distribution Width 13.8 % (11.5-14.5); White Blood Count 4.3 K/mm3 (4.5-10.0)
[2021-02-15 18:14] LABS: INR 1.1; Prothrombin Time 14.5 Seconds (11.1-14.7)
[2021-02-15 18:15] LABS: Partial Thromboplastin Time 31.5 SECONDS (22.3-36.8)
--- NOTE | 2021-02-15 18:45 | ED.GENADULT ---
HPI - General Adult General Chief complaint: Neuro Symptoms/Deficit Stated complaint: dyspnea, I think I had a stroke Time Seen by Provider: 02/15/21 18:07 Source: patient, RN notes reviewed and old records reviewed Mode of arrival: ambulatory Limitations: no limitations History of Present Illness HPI narrative: Patient is 70 years old -Turkish male came to the emergency room by bus complaining of chest pain for 1 week, constant all the time, coughing, concerned about the possibility of Covid infection, denies Covid vaccination or history of Covid infection. Patient is homeless, did not take his medication for unknown duration, including blood thinner. History of stroke August 2020. Patient also complaining of blurry vision for months and he should be seen by AN glove operator and he cannot make it. Patient reports that the stroke left him with trouble talking sometimes. Patient also supposed to follow-up with therapy for stroke but he could not because he is homeless. Last medicine intake or last food intake is unknown. Patient denies having any family around, or any friend, does not know the phone number of anybody for contact. Patient denies any new neurologic abnormality. Patient also denies any fever, chills, nausea, vomiting, chest pain, headache. Related Data Home Medications Medication Instructions Recorded Confirmed No Home Medications 02/15/21 02/15/21 Allergies Allergy/AdvReac Type Severity Reaction Status Date / Time No Known Allergies Allergy Verified 02/15/21 19:29 Review of Systems Review of Systems: CONSTITUTIONAL: Denies fever, chills, or sweats. EYES: Denies visual changes, redness, or discharge. ENT: Denies rhinorrhea, congestion, sore throat, or otalgia. CARDIOVASCULAR: Denies chest pain, palpitations, or edema. RESPIRATORY: Denies cough or dyspnea. GASTROINTESTINAL: Denies abdominal pain, nausea, vomiting, or diarrhea. GENITOURINARY: Denies dysuria or hematuria. SKIN: Denies rash or itching. MUSCULOSKELETAL: Denies back pain, joint pain, or myalgia. NEUROLOGIC: Denies headache, numbness, or weakness. PSYCHIATRIC: Denies anxiety or depression. [facility] Past Medical History Medical History (Updated 02/16/21 @ 00:09 by Petrona Moreno MD) Arthritis History of anxiety History of CHF (congestive heart failure) History of depression Social History Social History Smoking status: Current every day smoker Substance use type: crack/cocaine Gender identity (if verbalized by the patient): Male Exam Narrative: General appearance: Well-developed, well-nourished Skin: Normal color Head: Normocephalic, nontraumatic Eyes: Clear conjunctiva ENT: Oropharynx normal, ears normal, nose normal Neck: Supple, nontender Chest and respiratory: Airway patent, no respiratory distress, no accessory muscle use Heart: Regular rate/rhythm Abdomen: Soft, nontender, no organomegaly, quiet bowel sounds Vascular: Normal peripheral pulses, normal capillary refill. Musculoskeletal: Normal range of motion, nontender back Neurologic: Alert and oriented to his name, situation, the name of the hospital but does not remember his age or the year Course Course Emergency Course: Stable Vital Signs Vital signs: Vital Signs Temperature 36.6 C 02/15/21 17:48 Pulse Rate 80 02/15/21 17:48 Respiratory Rate 18 02/15/21 17:48 Blood Pressure 139/65 02/15/21 17:48 Pulse Oximetry 100 02/15/21 17:48 Temperature 36.6 C 02/15/21 17:48 Pulse Rate 84 02/15/21 22:57 Respiratory Rate 16 02/15/21 22:57 Blood Pressure 139/78 02/15/21 22:57 Pulse Oximetry 96 01/30
[2021-02-15 18:49] LABS: Alveolar/Arterial O2 Gradient 30.1 mmHg; Base Excess ABG -0.9 mEq/l (+/-2.0); Device ROOM AIR; Fractional Inspired Oxygen 21 %; HCO3 ABG 23.2 mEq/l (22.0-26.0); Modified Allen's Test Pass; Oxygen Content ABG 18.2 %vol (16.0-22.0); Oxygen Saturation ABG 95.5 % (95.0-100.0); Oxyhemoglobin 93.2 % THb (90.0-100.0); PCO2 ABG 36.8 mmHg (35.0-45.0); PO2 ABG 75.6 mmHg (80.0-100.0); Site Drawn LEFT RADIAL; Total Hemoglobin 13.9 g/dL (12.0-18.0); pH ABG 7.418 (7.350-7.450)
[2021-02-15 19:18] LABS: Anion Gap 7 mmol/L (8-16); Blood Urea Nitrogen 18 mg/dL (9-20); Calcium 8.8 mg/dL (8.4-10.2); Carbon Dioxide 23 mmol/L (22-30); Chloride 108 mmol/L (98-107); Estimated CRCL calculation 56 ml/min; Estimated Glomerular Filt Rate > 60; Glucose 77 mg/dL (65-110); Potassium 4.1 mmol/L (3.4-5.0); Sodium 138 mmol/L (137-145)
[2021-02-15 19:28] LABS: Troponin I < 0.012 ng/mL (0.000-0.034)
[2021-02-15 19:48] LABS: Alanine Aminotransferase 12 U/L (4-50); Albumin Level 4.1 g/dL (3.5-5.1); Alkaline Phosphatase 59 U/L (38-126); Aspartate Amino Transferase 33 U/L (17-59); Bilirubin,Total 0.4 mg/dL (0.2-1.3)
[2021-02-15 20:31] LABS: SARS-CoV-2 RNA PCR Positive
--- NOTE | 2021-02-15 23:19 | PC.NURSE ---
Report received from DELANEY Awan. Assumed care of patient at this time.
[2021-02-16 00:07] LABS: Add Urine Microscopic? YES; Appearance Urine Clear (Clear); Bilirubin Urine Negative (Negative); Blood Urine 1+ (Negative); Color Urine Yellow (Yellow); Glucose Urine UA Negative (Negative); Ketones Urine Negative (Negative); Leukocyte Esterase Ur Negative LEU/UL (Negative); Nitrate Urine Negative (Negative); Protein Urine Negative (Negative); WBC Urine 0-3 /hpf
[2021-02-16 00:14] LABS: Barbiturate Screen Urine Negative (Negative); Benzodiazepines Screen Urine Negative (Negative)
[2021-02-16 00:15] LABS: Amphetamine Screen Urine Negative (Negative); Cannabinoid Screen Urine Negative (Negative); Methadone Screen Urine Negative (Negative); Opiate Screen Urine Negative (Negative); Phencyclidine Screen Urine Negative (Negative)
[2021-02-16 01:54] VITALS: BP 119/71; PULSE 70; RESP 19; TEMP 36.7; O2SAT 100
[2021-02-16 21:50] LABS: Cocaine Screen Urine Positive (Negative)
== END 2021-02-16 01:57 | disposition home or self-care (01) ==
PROVIDERS: Emergency Provider Emergency Medicine
DX: U07.1 COVID-19 (principal); Z91.14 Patient's other noncompliance with medication regimen; F14.90 Cocaine use, unspecified, uncomplicated; I50.9 Heart failure, unspecified; F17.200 Nicotine dependence, unspecified, uncomplicated; Z86.73 Personal history of transient ischemic attack (TIA), and cerebral infarction without residual deficits; Z59.00 Homelessness unspecified
CPT/HCPCS: 36415; 36600; 70450; 71045; 80048; 80076; 80307; 81001; 82805; 82948; 84484; 85025; 85610; 85730; 93005; 99284; C9803; U0003; U0005

== ENCOUNTER 2021-09-10 21:43 | Observation (INO) | payer MEDICARE, MEDICAID, SELFPAY ==
[2021-09-10] VITALS (8 sets, daily range): BP systolic 118–161; BP diastolic 63–84; PULSE 66–81; RESP 16–20; TEMP 37; O2SAT 93–100
--- NOTE | ~2021-09-10 | XR_ITS ---
EXAMINATION: XR chest 1V portable DATE: 09/10/2021 22:12 INDICATION: Stroke. Slurred speech. Right facial weakness. TECHNIQUE: A single frontal view of the chest was obtained. COMPARISON: Chest single view 02/15/2021, CT abdomen and pelvis 01/07/2018 FINDINGS: The chest demonstrates clear lungs without pneumonia, pleural effusion, or pneumothorax. Th e heart size is normal. IMPRESSION: 1. No acute cardiopulmonary disease. Reviewed, dictated and finalized at location A.
--- NOTE | ~2021-09-10 | CT_ITS ---
EXAMINATION: CT brain wo con DATE: 09/10/2021 22:19 INDICATION: Stroke. TECHNIQUE: Computed tomography (CT) of the head was performed without intravenous contrast. The mA wa s adjusted according to patient size. Iterative reconstruction technique was employed. The dose-lengt h product was 605.33 mGy-cm. COMPARISON: Head CT 02/15/2021 FINDINGS: There are scattered areas of low attenuation in the cerebral white matter. There are old in farcts in the left frontal and parietal lobes and left basal ganglia. There is an old infarct in the right parietal lobe. There is no intracranial hemorrhage, acute infarction, or abnormal intracranial mass lesion. The ventricles are normal in size. Cavum septum pellucidum and vergae are noted. There a re likely changes of left ocular lens replacement surgery. There is mild mucosal thickening in the pa ranasal sinuses. The mastoid air cells are normal. IMPRESSION: 1. Old infarcts involving the left basal ganglia, left frontal and parietal lobes, and right frontal lobe. 2. Stable moderate nonspecific cerebral white matter disease, which likely represents chronic small v essel ischemic disease. Reviewed, dictated and finalized at location A. IMPRESSION: 1. Old infarcts involving the left basal ganglia, left frontal and parietal lob es, and right frontal lobe. 2. Stable moderate nonspecific cerebral white matter disease, which likely repr esents chronic small vessel ischemic disease.
--- NOTE | ~2021-09-10 | CT_ITS ---
EXAMINATION: CTA brain carotid DATE: 09/10/2021 22:47 INDICATION: Dysarthria. TECHNIQUE: Computed tomographic angiography (CTA) of the head was performed with 100 mL Omnipaque-350 intravenous contrast. CTA of the neck was performed with intravenous contrast. Automated exposure co ntrol and iterative reconstruction technique were employed. The dose-length product was 1119.14 mGy-c m. Maximum intensity projection and volume rendered 3D-reconstructions were [facility] separate work[facility]. COMPARISON: Head CT 09/10/2021 FINDINGS: HEAD CTA: There are scattered areas of low attenuation in the cerebral white matter. There are old in farcts in the left frontal and parietal lobes and left basal ganglia. There is an old infarct in the right parietal lobe. There is no intracranial hemorrhage, acute infarction, or abnormal intracranial mass lesion. The ventricles are normal in size. Cavum septum callosum and vergae are noted. There are likely changes of left ocular lens replacement surgery. There is mild mucosal thickening in the par anasal sinuses. The mastoid air cells are normal. The vertebral arteries are codominant. There is no significant stenosis of basilar artery or the posterior cerebral arteries. The posterior communicatin g arteries are normal. There is no significant stenosis of intracranial internal carotid arteries or anterior cerebral arteries. There is mild stenosis of the proximal middle cerebral arteries. Anterior communicating artery is normal. There is no aneurysm. There is extensive dental disease. NECK CTA: There is mild emphysema. There are nodules in the thyroid measuring up to 12 mm, likely not clinically significant. There are no pathologically enlarged lymph nodes. There is no significant st enosis of the vertebral arteries. There is plaque in the proximal internal carotid arteries. There is 0% stenosis of the proximal right internal carotid artery relative to normal distal artery lumen neel meter (NASCET criteria). There is 0% stenosis of the proximal left internal carotid artery relative t o normal distal artery lumen diameter. There is severe cervical spondylosis. IMPRESSION: 1. Old infarcts involving the left basal ganglia, left frontal and parietal lobes, and right parietal lobe. 2. Moderate nonspecific cerebral white matter disease, which likely represents chronic small vessel i schemic disease. 3. No aneurysm or significant intracranial arterial stenosis. 4. 0% stenosis of the proximal internal carotid arteries relative to normal distal artery lumen diame ters (NASCET criteria). Reviewed, dictated and finalized at location A. IMPRESSION: 1. Old infarcts involving the left basal ganglia, left frontal and parietal lob es, and right parietal lobe. 2. Moderate nonspecific cerebral white matter disease, which likely represents chronic small vessel ischemic disease. 3. No aneurysm or significant intracranial arterial stenosis. 4. 0% stenosis of the proximal internal carotid arteries relative to normal dis katie artery lumen diameters (NASCET criteria).
--- NOTE | ~2021-09-10 | XR_ITS ---
EXAMINATION: XR barium swallow modified DATE: 09/13/2021 10:12 INDICATION: Dysphagia. TECHNIQUE: The patient was given barium-containing material of multiple consistencies to swallow by t hugo speech pathologist while I performed fluoroscopy. Dose-area product was 1.65 Gy-cm2. 2.4 minutes FINDINGS: Oral Stage: Within functional limits Pharyngeal Phase: Reduced laryngeal elevation Mild vallecular and piriform sinus residue No laryngeal penetration or aspiration Cervical/Esophageal Stage: Within functional limits IMPRESSION: Modified esophagram findings as above. Please refer to the speech [facility]. Reviewed, dictated and finalized at Location A. Reviewed, dictated and finalized at location A. IMPRESSION: Modified esophagram findings as above. Please refer to the speech t herapy report for specific recommendations.
--- NOTE | 2021-09-10 21:58 | ECG_ITS ---
Measurements Intervals [place] Rate: 67 P: 59 PA: 239 QRS: 58 QRSD: 90 T: 63 QT: 388 QTc: 410 Interpretive Statements SINUS RHYTHM WITH FIRST DEGREE AV BLOCK EARLY PRECORDIAL R/S TRANSITION ABNORMAL ECG Electronically Signed On 09-11-2021 6:31:43 CDT by Cody Stevens D.O.
[2021-09-10 22:31] LABS: Estimated CRCL calculation 54 ml/min; Estimated Glomerular Filt Rate > 60
[2021-09-10 22:49] LABS: Basophils Absolute Auto 0.1 K/mm3 (0.0-0.1); Basophils Percent Auto 0.9 % (0.2-1.2); Eosinophils Absolute Auto 0.2 K/mm3 (0-0.3); Eosinophils Percent Auto 3.1 % (0-4.4); Hematocrit 38.4 % (42.0-52.0); Hemoglobin 11.8 g/dL (14.0-18.0); Immature Granulocyte Absolute 0.01 K/mm3 (0.00-0.031); Immature Granulocyte Percent A 0.2 % (0-0.5); Lymphocytes Absolute Auto 2.34 K/mm3 (0.9-3.2); Lymphocytes Percent Auto 36.5 % (18.3-44.2); Mean Corpuscular HGB Conc 30.7 g/dl (32-36); Mean Corpuscular Hemoglobin 29.7 pg (26-34); Mean Corpuscular Volume 96.7 fl (80-100); Mean Platelet Volume 9.5 fl (7.4-10.4); Monocytes Absolute Auto 0.5 K/mm3 (0.1-0.6); Monocytes Percent Auto 7.2 % (2.6-8.5); Neutrophils Absolute Auto 3.3 K/mm3 (1.3-6.7); Neutrophils Percent Auto 52.1 % (45.5-73.1); Platelet Count Result 240 k/mm3 (150-375); Red Blood Count 3.97 M/mm3 (4.6-6.20); Red Cell Distribution Width 13.8 % (11.5-14.5); White Blood Count 6.4 K/mm3 (4.5-10.0)
[2021-09-10 23:00] LABS: Alanine Aminotransferase 10 U/L (6-50); Albumin Level 3.4 g/dL (3.5-5.1); Alkaline Phosphatase 58 U/L (38-126); Anion Gap 4 mmol/L (8-16); Aspartate Amino Transferase 20 U/L (17-59); Bilirubin,Total 0.2 mg/dL (0.2-1.3); Blood Urea Nitrogen 18 mg/dL (9-20); Calcium 7.9 mg/dL (8.4-10.2); Carbon Dioxide 27 mmol/L (22-30); Chloride 109 mmol/L (98-107); Estimated CRCL calculation 60 ml/min; Estimated Glomerular Filt Rate > 60; Glucose 93 mg/dL (65-110); Potassium 4.5 mmol/L (3.4-5.0); Sodium 140 mmol/L (137-145)
[2021-09-10 23:02] LABS: INR 1.2; Prothrombin Time 15.2 Seconds (11.1-14.7)
[2021-09-10 23:03] LABS: Partial Thromboplastin Time 34.1 SECONDS (22.3-36.8)
[2021-09-10 23:12] LABS: Troponin I < 0.012 ng/mL (0.000-0.034)
--- NOTE | 2021-09-10 23:32 | ED.NEUROSD ---
HPI - Neuro Symptoms/Deficit General Chief Complaint: Neuro Symptoms/Deficit Stated Complaint: stroke symptoms Time Seen by Provider: 09/10/21 22:05 History of Present Illness HPI Narrative: 70-year-old male with history of CVA presents here with concern for CVA, he states that about 4 hours prior patient here, he noticed that he seemed to be drooling, and that his voice sounded different to him this is similar to the last when he had a stroke which she think about 2 months ago. He states he has been out of his medications for over a month and hasn't been able to followup with his doctor. Denies any headache. Onset (ago): hour(s) (4) Location: speech and dysarthria History of same: Yes Context: sudden onset On Anticoagulants: No Associated symptoms: denies other symptoms Treatments Prior to Arrival: none Related Data Home Medications Medication Instructions Recorded Confirmed No Home Medications 02/15/21 02/15/21 Allergies Allergy/AdvReac Type Severity Reaction Status Date / Time No Known Allergies Allergy Verified 02/15/21 19:29 Review of Systems Review of Systems: All systems reviewed & are unremarkable except as noted in HPI and below PMFSH Past Medical History Medical History (Updated 09/10/21 @ 23:50 by Griselda Alex MD) Arthritis History of anxiety History of CHF (congestive heart failure) History of depression Social History Social History Smoking status: Current every day smoker Alcohol intake: unknown Substance use type: crack/cocaine Gender identity (if verbalized by the patient): Male Spiritual care concerns: No Exam Const: General: no acute distress and alert Orientation/consciousness: patient oriented x3 HENMT: Head: normal to inspection Eyes: Pupils: Equal, round and reactive pupils present EOM: EOMs intact bilaterally Neck: Neck: normal visual inspection Chest: Chest palpation & inspection: normal inspection of the chest Resp: Effort & Inspection: normal respiratory effort Cardio: Rate: regular rate Rhythm: regular rhythm GI: Inspection: non-distended GI Palp: Yes Soft to palpation Skin: General skin exam: normal color Neuro: General: patient oriented x3, moves all extremities, Normal light touch and pain sensation, no focal motor deficits and CN's II-XI intact bilaterally Cranial nerves: Yes facial symmetry Cognition (Neuro): normal cognition Speech: Abnormal speech present, dysarthria and aphasia (Slow to speech) Motor exam (neuro): Pronator motor function not present and No tremor noted Sensory Exam: normal sensation Coordination: [id number] test normal Other: NIHSS 2 Extrem: General: normal to inspection Psych: Mental Status: mental status grossly normal Course Course Emergency Course: 70-year-old male presents with new onset dysarthria about 4 hours prior to presentation here, he states that feels similar to his prior stroke 2 months ago, vital signs stable, exam shows dysarthria and slowed speech, NIH stroke scale is 2, stat CT head Noncon does not show any acute bleed, patient is given aspirin and Plavix, he is not a tPA candidate given he had a recent stroke less than 3 months ago and he is also out of the tPA window, case discussed with neurology on-call Dr. Reddy who agrees with the plan and will see the patient in the morning, CTA here does not show anything to be intervened on. Case discussed with hospitalist Dr. Dyer and patient will be admitted. Vital Signs Vital signs: Vital Signs Temperature 98.6 F 09/10/21 21:47 Pulse Rate 69 09/10/21 21:47 Respiratory Rate 18 09/10/21 21:47 Blood Pressure 123/69 09/10/21 21:47 Pulse Oximetry 100 09/10/21 21:47 Temperature 98.6 F 09/10/21 21:47 Pulse Rate 65 09/11/21 01:22 Respiratory Rate 12 09/11/21 01:22 Blood Pressure 134/85 09/11/21 00:01 Pulse Oximetry 99 09/11/21 01:22 MDM - Neuro Symptoms/Deficit
[2021-09-11] VITALS (12 sets, daily range): BP systolic 127–134; BP diastolic 68–85; PULSE 54–76; RESP 12–18; TEMP 36.4–37.3; O2SAT 96–100; BMI 24.5
--- NOTE | 2021-09-11 | ECHO_ITS ---
Patient Info Name: Benito Cisse Age: 70 years : 1950 Gender: Male Ht: 68 in Wt: 161 lbs BSA: 1.88 m2 HR: 65 bpm BP: 130 / 68 mmHg Technical Quality: Fair Exam Date: 09/11/2021 8:40 AM Exam Location: [facility] Pulmonary Patient Status: Outpatient Admit Date: 09/10/2021 Staff Ordering Physician: Kentrell Dyer DO Game Designer/Creative Director: Araseli Franklin RDCS Attending Provider: Kendal Echavarria DO Exam Type: CA echo doppler color flow Study Info Indications - H/O STROKE Complete two-dimensional, color flow and Doppler transthoracic echocardiogram is performed. Summary 1. Complete two-dimensional, color flow and Doppler transthoracic echocardiogram is performed. 2. Left ventricular chamber dimension is normal. 3. Left ventricular systolic function is normal, estimated at 55-60%. 4. The left ventricular diastolic function is grade I diastolic dysfunction. 5. E/e' 7 is not elevated. 6. Global longitudinal strain is mildly abnormal at -16.1%. 7. There is mild aortic valve sclerosis. 8. No pulmonary hypertension, estimated pulmonary arterial systolic pressure is 23 mmHg. 9. The aortic root size at the sinus of Valsalva is borderline dilated at 4.1 cm.. Left Ventricle E/e' 7 is not elevated. Global longitudinal strain is mildly abnormal at -16.1%. Left ventricular chamber dimension is normal. Left ventricular systolic function is normal, estimated at 55-60%. The left ventricular diastolic function is grade I diastolic dysfunction. Right Ventricle Right ventricular chamber dimension is normal. Right ventricular systolic function is normal. Left Atria Left atrial chamber dimension is normal. Right Atria Right atrial chamber dimension is normal. Aortic Valve The aortic valve is trileaflet. There is mild aortic valve sclerosis. There is no aortic valve stenosis. There is no aortic valve regurgitation. Pulmonic Valve There is no pulmonic regurgitation. Mitral Valve There is no mitral valve stenosis. There is no mitral valve regurgitation. Tricuspid Valve There is no tricuspid valve regurgitation. No pulmonary hypertension, estimated pulmonary arterial systolic pressure is 23 mmHg. Pericardium/Pleural There is no pericardial effusion. Inferior Vena Cava Normal inferior vena cava with >50% collapse upon inspiration consistent with normal right atrial pressure, 5 mmHg. Aorta The aortic root size at the sinus of Valsalva is borderline dilated at 4.1 cm.. Left Ventricular Outflow Tract Name Value Normal LVOT 2D LVOT Diameter 2.0 cm LVOT Doppler LVOT Peak Gradient 3 mmHg LVOT Mean Gradient 1 mmHg LVOT VTI 17 cm LVOT VTI/AV VTI Ratio 0.9 LVOT Stroke Volume 55 ml LVOT CO 3.5 l/min LVOT CI 1.8 l/min/m2 Pulmonic Valve Name Value Normal
[2021-09-11] MEDS: ASPIRIN 325 MG TABLET PO (00:08)
[2021-09-11] MEDS: CLOPIDOGREL BISULFATE 300 MG TABLET PO (00:08)
[2021-09-11 01:04] LABS: SARS-CoV-2 RNA PCR Negative
--- NOTE | 2021-09-11 02:06 | PC.NURSE ---
This patient, Benito Cisse, was admitted to 3 [facility] Surg Room 306-01. Patient/family oriented to hospital policies and general routines including ID bracelet, bed and alarms, visiting hours, pain management, procedures, bathroom and other care routines, personal items, smoking policy, room service/diet, and visiting hours. Information on how to activate the Rapid Response Team has been discussed. Patient/Family are encouraged to report perceived risks to care and to ask questions if they do not understand what they are told or what they should do.
--- NOTE | 2021-09-11 05:19 | PC.NURSE ---
0200: Attempted to do admission with pt. Pt completely noncompliant. I had to ask questions repeatedly before pt would answer. Pt kept trying to roll over and sleep. Completed the admission with what little information I could get. Pt would not answer about medications he takes. Pt would not let software writer preform assessment.
--- NOTE | 2021-09-11 06:14 | PM.IMHP ---
H&P: HPI History of Present Illness Date/Time: Greater than 30 minutes spent reviewing chart, evaluating, treating, and counseling patient. Anticipate greater than 48 hours admission, will admit as inpatient. 09/11/21 06:14 70 yo M PMHx of L MCA stroke 08/2020 for which he received tPA with residual dysarthria, tobacco abuse, anxiety/depression, documented h/o CHF. Presents after patient noted he was drooling from the side of his mouth last night around 8 PM. Unclear if this was the exact time, patient appears to be poor historian. Patient's speech is tangential at times, however he is alert and oriented. Patient denies any drug use. Patient admits to blurry vision, which is not worse than baseline. Admits to palpitations intermittently. Denies SOB, chest pain, n/v/d/c, dysuria, hematuria, blood in stool. Patient reports he ran out of his medications 1 month ago because he has not seen his family doctor in a while. He states he has difficulty making it over there without any means of transportation. Patient is homeless. He states he is unable to afford his medications. Patient typically fills his medications at [facility] in [place]. In ED, patient's vitals stable. Pressure normotensive. Labs remarkable for Hb 11.8. Ct head showing old infarcts in L basal ganglia, L frontal, and b/l parietal lobes. CTA head and neck negative for LVO. EKG showing NSR with first degree AV block. Patient given dose of ASA and plavix, neuro consulted. Chief Complaint: Concern for worsening dysarthria, drooling Review of Systems Review of Systems: 10 point ROS reviewed, negative unless otherwise specified per [facility] Past Medical History Medical History (Updated 09/11/21 @ 06:33 by Kentrell Dyer DO) Arthritis History of anxiety History of CHF (congestive heart failure) History of depression Normocytic anemia Tobacco abuse Social History Social History Smoking status: Current every day smoker Alcohol intake: unknown Substance use type: crack/cocaine Gender identity (if verbalized by the patient): Male Spiritual care concerns: No Meds Home Medications and Allergies Home Medications Medication Instructions Recorded Confirmed Type No Home Medications 02/15/21 02/15/21 History Allergies Allergy/AdvReac Type Severity Reaction Status Date / Time No Known Allergies Allergy Verified 02/15/21 19:29 Vital Signs Vital Signs - 24 hr 09/10/21 21:47 09/10/21 21:58 09/10/21 21:59 Temperature 98.6 F Pulse Rate 69 69 Respiratory Rate 18 17 Blood Pressure 123/69 118/75 Pulse Oximetry 100 96 96 09/10/21 22:01 09/10/21 22:40 09/10/21 22:46 Temperature Pulse Rate 69 71 67 Respiratory Rate 17 20 17 Blood Pressure 133/70 146/63 H 149/76 H Pulse Oximetry 98 97 97 09/10/21 23:16 09/10/21 23:31 09/11/21 00:01 Temperature Pulse Rate 66 81 72 Respiratory Rate 17 16 16 Blood Pressure 161/84 H 154/84 H 134/85 Pulse Oximetry 95 93 09/11/21 01:22 09/11/21 04:00 09/11/21 06:00 Temperature 97.6 F Pulse Rate 65 61 76 Respiratory Rate 12 18 Blood Pressure 130/68 Pulse Oximetry 99 99 Exam Const: General: no acute distress Other: drowsy, but arousable. Follows commands Eyes: General: appearance normal, both eyes and all related structures Pupils: Equal, round and reactive pupils present EOM: EOMs intact bilaterally Resp: Effort & Inspection: normal respiratory effort Auscultation: clear to auscultation bilaterally Cardio: Rate: regular rate Rhythm: regular rhythm GI: GI Palp: Yes Soft to palpation Auscultation: normal bowel sounds Other: nontender, nondistended Skin: General skin exam: normal color Neuro: Other: shuffled gait. tangential speech. NIHSS 2 (1 for LOC and 1 for dysarthria) Extrem: Right lower extremity: normal to inspection Left lower extremity: normal to inspection H&P: Results Labs Labs: Short CBC
[2021-09-11 07:08] LABS: Ethanol < 10 mg/dL (<10)
[2021-09-11 07:40] LABS: Cholesterol 84 mg/dL (0-200); HDL Direct 34 mg/dL; Triglycerides 350 mg/dL (<150)
[2021-09-11 07:50] LABS: LDL Cholesterol Direct 35 mg/dL
[2021-09-11 07:53] LABS: Hemoglobin A1C 4.6 % (<5.7)
[2021-09-11 08:29] LABS: Iron 64 ug/dL (49-181)
[2021-09-11 08:43] LABS: Percent Iron Saturation 21 % (20-50)
[2021-09-11] MEDS: ASPIRIN 81 MG CHEWABLE TABLET PO (09:04)
[2021-09-11] MEDS: ENOXAPARIN 40 MG/0.4 ML SYRINGE SUB-Q (09:04)
[2021-09-11 09:11] LABS: Folic Acid 8.7 ng/mL (2.76->20)
[2021-09-11 09:12] LABS: Ferritin 7.12 ng/mL (11.1-264)
--- NOTE | 2021-09-11 09:58 | PCSTNOTE ---
Please refer to the Bedside Swallow Evaluation in the EMR. Please note, silent aspiration cannot be ruled out at bedside.
--- NOTE | 2021-09-11 13:43 | WPDNEURCNPN ---
Assessment and Plan Additional Plan i status post left hemispheric stroke with severe stenosis of the proximal left middle cerebral artery patient to receive aspirin and Plavix both medication on a regular basis along with the control of the blood pressure and avoidance of the smoking other treatment will be continued as such. Consult date: 09/11/21 HPI: Benito Cisse is a 70 year old male has been admitted to the hospital through the emergency room where he was brought with complaints of dysarthria of 4 hours duration in addition to the drooling and also concern the same symptomatology happened about 2 months ago though he has not been seen by any physician and has been out of his medications for a month, patient is not allergic to any medication, has ongoing history of congestive heart failure with anxiety and depression and arthritis, currently everyday smoker, [place] substances such as crack cocaine, initial vital signs were stable, and routine labs were normal, CTA documented old infarct involving the left basal ganglia left frontal lobe and left parietal lobe in addition to right parietal lobe along with nonspecific cerebral white matter disease but no evidence of aneurysm or stenosis, head CT scan documented old infarcts as mentioned above and chest x-ray did not reveal any acute [place] disease, echocardiogram revealed mild aortic valve sclerosis and at present patient is on aspirin along with clopidogrel Review of Systems Review of Systems: All systems reviewed & are unremarkable except as noted in HPI and below PMFSH Past Medical History Medical History Arthritis History of anxiety History of CHF (congestive heart failure) History of depression Normocytic anemia Tobacco abuse Social History Social History Smoking status: Current every day smoker Alcohol intake: unknown Substance use type: crack/cocaine Gender identity (if verbalized by the patient): Male Spiritual care concerns: No Meds Home Medications and Allergies Home Medications Medication Instructions Recorded Confirmed Type No Home Medications 02/15/21 02/15/21 History Allergies Allergy/AdvReac Type Severity Reaction Status Date / Time No Known Allergies Allergy Verified 02/15/21 19:29 Vital Signs Vital Signs - 24 hr 09/10/21 21:47 09/10/21 21:58 09/10/21 21:59 Temperature 37.0 C Pulse Rate 69 69 Respiratory Rate 18 17 Blood Pressure 123/69 118/75 Pulse Oximetry 100 96 96 09/10/21 22:01 09/10/21 22:40 09/10/21 22:46 Temperature Pulse Rate 69 71 67 Respiratory Rate 17 20 17 Blood Pressure 133/70 146/63 H 149/76 H Pulse Oximetry 98 97 97 09/10/21 23:16 09/10/21 23:31 09/11/21 00:01 Temperature Pulse Rate 66 81 72 Respiratory Rate 17 16 16 Blood Pressure 161/84 H 154/84 H 134/85 Pulse Oximetry 95 93 09/11/21 01:22 09/11/21 04:00 09/11/21 06:00 Temperature 36.4 C Pulse Rate 65 61 76 Respiratory Rate 12 18 Blood Pressure 130/68 Pulse Oximetry 99 99 09/11/21 08:00 09/11/21 12:00 Temperature Pulse Rate 61 54 L Respiratory Rate Blood Pressure Pulse Oximetry Exam Narrative: revealed him to be awake alert cooperative in no obvious acute distress head normocephalic with no cranial bruit ear nose throat examination normal neck supple with no cervical bruit no thyromegaly no lymphadenopathy heart regular with no murmur lungs clear to auscultation abdomen is soft with no organomegaly neurological examination revealed him to be awake alert with dysarthric speech pupils round regular feels the vision full extraocular movements full face symmetrical tongue midline motor examination revealed him to have right-sided weakness with hyperreflexia and questionably upgoing plantar response he had difficulties in performing [id number] and he Results Labs CBC & Chem 7: 0
[2021-09-11 16:11] LABS: Amphetamine Screen Urine Negative (Negative); Barbiturate Screen Urine Negative (Negative); Benzodiazepines Screen Urine Negative (Negative); Cannabinoid Screen Urine Negative (Negative); Cocaine Screen Urine Negative (Negative); Methadone Screen Urine Negative (Negative); Opiate Screen Urine Negative (Negative); Phencyclidine Screen Urine Negative (Negative)
[2021-09-11 20:48] LABS: Glucose Point of Care 94 mg/dl (65-105)
[2021-09-12] VITALS (9 sets, daily range): BP systolic 131–143; BP diastolic 75–83; PULSE 54–68; RESP 16–18; TEMP 36.8–37.3; O2SAT 98–100
[2021-09-12 07:59] LABS: Glucose Point of Care 89 mg/dl (65-105)
[2021-09-12] MEDS: ENOXAPARIN 40 MG/0.4 ML SYRINGE SUB-Q (08:15)
[2021-09-12] MEDS: ASPIRIN 81 MG CHEWABLE TABLET PO (08:15)
[2021-09-12 09:44] LABS: Basophils Absolute Auto 0.1 K/mm3 (0.0-0.1); Eosinophils Absolute Auto 0.1 K/mm3 (0-0.3); Eosinophils Percent Auto 1.1 % (0-4.4); Hematocrit 42.6 % (42.0-52.0); Immature Granulocyte Absolute 0.01 K/mm3 (0.00-0.031); Immature Granulocyte Percent A 0.2 % (0-0.5); Lymphocytes Absolute Auto 1.56 K/mm3 (0.9-3.2); Lymphocytes Percent Auto 29.8 % (18.3-44.2); Mean Corpuscular HGB Conc 30.5 g/dl (32-36); Mean Corpuscular Hemoglobin 29.2 pg (26-34); Mean Corpuscular Volume 95.7 fl (80-100); Mean Platelet Volume 9.3 fl (7.4-10.4); Monocytes Absolute Auto 0.2 K/mm3 (0.1-0.6); Monocytes Percent Auto 3.8 % (2.6-8.5); Neutrophils Absolute Auto 3.4 K/mm3 (1.3-6.7); Neutrophils Percent Auto 64.1 % (45.5-73.1); Platelet Count Result 245 k/mm3 (150-375); Red Blood Count 4.45 M/mm3 (4.6-6.20); Red Cell Distribution Width 13.3 % (11.5-14.5); White Blood Count 5.2 K/mm3 (4.5-10.0)
[2021-09-12 10:08] LABS: Alanine Aminotransferase 11 U/L (6-50); Albumin Level 3.7 g/dL (3.5-5.1); Alkaline Phosphatase 56 U/L (38-126); Anion Gap 4 mmol/L (8-16); Aspartate Amino Transferase 20 U/L (17-59); Bilirubin,Total 0.4 mg/dL (0.2-1.3); Blood Urea Nitrogen 16 mg/dL (9-20); Calcium 8.1 mg/dL (8.4-10.2); Carbon Dioxide 26 mmol/L (22-30); Chloride 106 mmol/L (98-107); Estimated CRCL calculation 60 ml/min; Estimated Glomerular Filt Rate > 60; Glucose 132 mg/dL (65-110); Sodium 136 mmol/L (137-145)
--- NOTE | 2021-09-12 17:51 | PM.DS ---
DS: Admitting Diagnosis Discharge Date September 12, 2021 Admitting Diagnosis Dysarthria, drooling DS: Discharge Diagnosis Discharge Diagnosis (1) Cerebrovascular accident: Code(s): I63.9 - Cerebral infarction, unspecified Status: Acute Assessment and Plan: Started on aspirin, Plavix and Lipitor, neurology consultation ordered CTA head and neck that showed severe stenosis of the left MCA. All symptoms resolved. (2) Financial difficulties: Code(s): Z59.9 - Problem related to housing and economic circumstances, unspecified Status: Acute Assessment and Plan: Patient is homeless with financial barriers. C/s SW to aid in finding long-term, financial support, and transportation report. Social work spoke with patient who is homeless by choice, daughter is willing to let him live with her but he refuses. List of homeless shelters given to patient. (3) Tobacco abuse: Code(s): Z72.0 - Tobacco use Status: Acute Assessment and Plan: drug abuse counselor on smoking cessation spent extensive time discussing risk of this on his stroke symptoms. (4) Substance abuse: Code(s): F19.10 - Other psychoactive substance abuse, uncomplicated Status: Acute Assessment and Plan: History of cocaine and crack use, recommended against these. Discussed risk of recurrent stroke with use of these substances. DS: Summary Hospital Course Reason for hospitalization: Persistent dysarthria status post recent CVA Hospital Course: 70-year-old male with past medical history of left MCA stroke in August 2020 he received tPA and was discharged with residual dysarthria. He also has tobacco dependence with depression anxiety and history of CHF. He presented to this hospital after he felt like he was drooling from the side of his mouth last night around 8:00 p.m. Patient states he ran out of his medications because he is homeless and does not have a family doctor. In the ER, CT head and CTA head and neck were ordered but only show the old infarcts, nothing acute. EKG was normal sinus rhythm with first-degree AV block. Patient was started on aspirin and Plavix which should have been home meds and Neurology was consulted. Patient was noted to be positive for crack cocaine. He was also found to have severe stenosis of the left MCA in the past. Best treatment for this is aspirin and Plavix per Neurology, no invasive procedures necessary. Echo did show an EF of 55-60% with grade 1 diastolic dysfunction, no pulmonary hypertension, mild aortic valve sclerosis. Swallow study was performed and was nonacute. He was not an aspiration risk and started on regular diet. It appears that his dysarthria is at baseline from the last stroke and there are no more acute worsening of his current symptoms noted per Neurology. He was discharged in stable condition after a aged or disabled carer spent significant time finding homeless shelters and making arrangements for him to afford his medications. Status at Discharge Functional status at discharge: independent ambulation Time Spent with Patient Time attestation: Total time spent providing and/or coordinating discharge services: Time spent: Greater than 30 minutes Exam Const: General: no acute distress and alert Orientation/consciousness: patient oriented x3 HENMT: Head: normal to inspection Eyes: General: appearance normal, both eyes and all related structures Pupils: Equal, round and reactive pupils present EOM: EOMs intact bilaterally Neck: Neck: normal visual inspection Chest: Chest palpation & inspection: normal inspection of the chest Resp: Effort & Inspection: normal respiratory effort Auscultation: clear to auscultation bilaterally Cardio: Rate: regular rate Rhythm: regular rhythm GI: Inspection: non-distended Auscultation: normal bowel sounds Other: nontender, nondistended Skin: General skin exam: normal color Neuro: General: patient oriented x3, moves all extremities,
--- NOTE | 2021-09-12 18:02 | PM.IMPN ---
Progress Note: A&P Assessment and Plan (1) Cerebrovascular accident: Code(s): I63.9 - Cerebral infarction, unspecified Status: Acute Assessment and Plan: Started on aspirin, Plavix and Lipitor, neurology consultation ordered CTA head and neck that showed severe stenosis of the left MCA. All symptoms resolved other than dysarthria, which is chronic from his last stroke. Patient is essentially discharge ready, we will discuss safe discharge plan with psychosocial rehabilitation counselor tomorrow regarding possible rehab with speech therapy versus homeless jail. (2) Financial difficulties: Code(s): Z59.9 - Problem related to housing and economic circumstances, unspecified Status: Acute Assessment and Plan: Patient is homeless with financial barriers. C/s SW to aid in finding jail, financial support, and transportation report. Social work spoke with patient who is homeless by choice, daughter is willing to let him live with her but he refuses. List of homeless shelters given to patient. (3) Tobacco abuse: Code(s): Z72.0 - Tobacco use Status: Acute Assessment and Plan: classification counselor on smoking cessation spent extensive time discussing risk of this on his stroke symptoms. (4) Substance abuse: Code(s): F19.10 - Other psychoactive substance abuse, uncomplicated Status: Acute Assessment and Plan: History of cocaine and crack use, recommended against these. Discussed risk of recurrent stroke with use of these substances. Subjective Date/time seen: 09/12/21 18:02 Patient continues to have dysarthria. He essentially passed his swallow study, but speech therapy is recommending that his food be cut up for him. There is some concern that he may take bites that are too big and then choke. Patient states he has not showed does not think he will choke. He is requesting a regular diet. He denies any chest pain or shortness of breath. No nausea vomiting diarrhea. No fevers or chills. Review of Systems Review of Systems: All systems reviewed & are unremarkable except as noted in HPI and below Neurologic: Reports Abnormal speech present Exam Const: General: no acute distress and alert Orientation/consciousness: patient oriented x3 Other: drowsy, but arousable. Follows commands HENMT: Head: normal to inspection Eyes: General: appearance normal, both eyes and all related structures Pupils: Equal, round and reactive pupils present EOM: EOMs intact bilaterally Neck: Neck: normal visual inspection Chest: Chest palpation & inspection: normal inspection of the chest Resp: Effort & Inspection: normal respiratory effort Auscultation: clear to auscultation bilaterally Cardio: Rate: regular rate Rhythm: regular rhythm GI: Inspection: non-distended Auscultation: normal bowel sounds Other: nontender, nondistended Skin: General skin exam: normal color Neuro: General: patient oriented x3, moves all extremities, Normal light touch and pain sensation, no focal motor deficits and CN's II-XI intact bilaterally Cranial nerves: Yes Equal, round and reactive pupils present and Yes facial symmetry Cognition (Neuro): normal cognition Speech: Abnormal speech present and dysarthria Motor exam (neuro): Pronator motor function not present and No tremor noted Sensory Exam: normal sensation Coordination: [id number] test normal Other: Dysarthria noted Extrem: General: normal to inspection Right lower extremity: normal to inspection Left lower extremity: normal to inspection Psych: Mental Status: mental status grossly normal Objective Data Vital Signs Vital Signs: Vital Signs - 24 hr 09/11/21 20:00 09/11/21 21:40 09/11/21 22:00 Temperature 99.1 F Pulse Rate 66 62 Respiratory Rate 16 Blood Pressure 132/70 Pulse Oximetry 99 99 09/12/21 00:00 09/12/21 04:00 09/12/21 06:00 Temperature 98.4 F Pulse Rate 61 54 L 60 Respiratory Rate 18 Blood Pressure 131/76
[2021-09-13] VITALS: PULSE 56
[2021-09-13 04:00] VITALS: PULSE 58
[2021-09-13 06:00] VITALS: BP 141/80; PULSE 67; RESP 16; TEMP 36.4; O2SAT 100
[2021-09-13 08:00] VITALS: PULSE 67; RESP 16; O2SAT 100
[2021-09-13] MEDS: ATORVASTATIN 40 MG TABLET PO (09:01)
[2021-09-13] MEDS: CLOPIDOGREL BISULFATE 75 MG TABLET PO (09:01)
[2021-09-13] MEDS: ASPIRIN 81 MG CHEWABLE TABLET PO (09:01)
[2021-09-13] MEDS: ENOXAPARIN 40 MG/0.4 ML SYRINGE SUB-Q (09:01)
--- NOTE | 2021-09-13 10:42 | PCSTNOTE ---
Please refer to the Modified Barium Swallow Evaluation in the EMR.
== END 2021-09-13 11:55 | disposition home or self-care (01) ==
LOC: ANHED 23:50 → ANH3MEDSUR 09-11 01:09
PROVIDERS: Emergency Medicine; Admitting Provider Internal Medicine; Emergency Provider Emergency Medicine; Visit Provider Student in an Organized Health Care Education/Training Program
DX: I63.9 Cerebral infarction, unspecified (principal); R47.1 Dysarthria and anarthria; F17.210 Nicotine dependence, cigarettes, uncomplicated; F41.8 Other specified anxiety disorders; R93.1 Abnormal findings on diagnostic imaging of heart and coronary circulation; I44.0 Atrioventricular block, first degree; Z59.9 Problem related to housing and economic circumstances, unspecified; D64.9 Anemia, unspecified; F14.90 Cocaine use, unspecified, uncomplicated; Z20.822 Contact with and (suspected) exposure to COVID-19; Z59.00 Homelessness unspecified
CPT/HCPCS: 36415; 70450; 70496; 70498; 71045; 80053; 80061; 80307; 82607; 82728; 82746; 82948; 83036; 83540; 83550; 84484; 85025; 85610; 85730; 92610; 92611; 93005; 93306; 96372; 97161; 97165; 99285; A9270; C9803; G0378; J1650; Q9967; U0003; U0005

== ENCOUNTER 2021-10-28 08:58 | Emergency (ER) | payer MEDICARE, MEDICAID, SELFPAY ==
--- NOTE | ~2021-10-28 | XR_ITS ---
EXAMINATION: XR chest 2V 10/28/2021 10:17 INDICATION: Cough and chills PROCEDURE: 2 view chest COMPARISON: Comparison to multiple prior studies sequentially, with oldest reviewed study dated 11/2018. FINDINGS: The lungs are clear. The cardiomediastinal silhouette is within normal limits. There are no pleural effusions. There is no pneumothorax suspected. The lungs are hyperinflated which is cons istent with, but not diagnostic of chronic obstructive pulmonary disease. IMPRESSION: 1: NO ACUTE CARDIOPULMONARY DISEASE. Reviewed, dictated and finalized at location A.
--- NOTE | 2021-10-28 09:05 | ECG_ITS ---
Measurements Intervals [place] Rate: 80 P: 119 WA: 170 QRS: 113 QRSD: 101 T: 112 QT: 379 QTc: 438 Interpretive Statements SINUS RHYTHM ARM LEADS REVERSED [INVERTED P AND QRS IN I] ATYPICAL ECG COMPARED TO ECG 09/10/2021 22:02:19 NO SIGNIFICANT CHANGES Electronically Signed On 10-28-2021 12:44:23 CDT by Shyann Tai M.D.
[2021-10-28 09:06] VITALS: BP 150/72; PULSE 86; RESP 18; TEMP 36.6; O2SAT 100
[2021-10-28 09:11] VITALS: PULSE 85
--- NOTE | 2021-10-28 09:14 | ED.SYNCOPE ---
HPI - Syncope General Chief Complaint: Syncope <ARI Castle Last Filed: 10/28/21 10:42> Stated Complaint: runny nose, syncope few days ago <ARI Castle Last Filed: 10/28/21 10:42> Time Seen by Provider: 10/28/21 09:03 <ARI Castle Last Filed: 10/28/21 10:42> History of Present Illness HPI narrative: 70-year-old male with a history of a CVA for which he received tPA at [place] with residual dysarthria, substance use, homelessness here for evaluation of an episode of syncope last week. Patient states that he blacked out suddenly and he is unsure why. He tells me he was admitted to [facility] for 3 days and they were unable to discern a reason for his syncope. Patient has not had a syncopal episode since being discharged from the hospital although he tells me he does feel tired in addition to having frontal headache, rhinorrhea, cough, and chills. He has not tried anything for his headache or his upper respiratory symptoms. Denies sick contacts. Denies chest pain, shortness of breath, increased dysarthria from baseline. Of note, patient was admitted here last month for drooling and increased dysarthria, his CTA was found to have severe stenosis of the L MCA, he was discharged after neurologic consultation and restarted on ASA and plavix, which were his home medications that he was not taking due to social barriers and cost. <ARI Castle Last Filed: 10/28/21 10:42> Related Data Home Medications: Home Medications Medication Instructions Recorded Confirmed No Home Medications 02/15/21 02/15/21 <ARI Castle Last Filed: 10/28/21 10:42> Allergies/Adverse Reactions: Allergies Allergy/AdvReac Type Severity Reaction Status Date / Time No Known Allergies Allergy Verified 10/28/21 09:44 <ARI Castle Last Filed: 10/28/21 10:42> Review of Systems Review of Systems: Gen: Reports chills. Denies fevers Eyes: Denies eye pain or visual change ENT: Reports congestion, cough Respiratory: Denies shortness of breath or cough CV: Denies chest pain or palpitations GI: Denies abdominal pain nausea, emesis or diarrhea denies burning, urgency, frequency or hematuria Musculoskeletal: Denies back pain or muscle pain Neuro: Reports syncope and headache. Denies numbness, tingling, weakness or focal weakness Skin: Denies rash Except as documented, all other systems reviewed and negative <Kristen Lenz PA-C - Last Filed: 10/28/21 10:42> [facility] Past Medical History Medical History: Medical History Arthritis History of anxiety History of CHF (congestive heart failure) History of depression Normocytic anemia Tobacco abuse <Kristen Lenz PA-C - Last Filed: 10/28/21 10:42> Social History Social History: Social History Smoking status: Current every day smoker Alcohol intake: unknown Substance use type: crack/cocaine Gender identity (if verbalized by the patient): Male Spiritual care concerns: No <Kristen Lenz PA-C - Last Filed: 10/28/21 10:42> Exam Narrative: APPEARANCE: Well appearing, no pain in distress, well-nourished. Head: Normocephalic and atraumatic. EYES: PERRLA/EOMI, conjunctivae clear NOSE: No nasal drainage EARS: External ear normal in appearance THROAT: Oropharynx is clear. Mucous membranes are moist. NECK: Supple. No adenopathy, no masses. RESPIRATORY: Airway patent, respirations nonlabored. Clear to auscultation bilaterally, no rales, rhonchi, wheezing. CARDIOVASCULAR: Regular rate and rhythm without murmurs, rubs, or gallops. ABDOMINAL: Normoactive bowel sounds. Soft, nontender, nondistended. No rebound tenderness or guarding. MUSCULOSKELETAL: Extremities are warm and well-perfused. Moves all extremities well. No edema.
[2021-10-28 09:53] LABS: Basophils Absolute Auto 0.1 K/mm3 (0.0-0.1); Basophils Percent Auto 0.8 % (0.2-1.2); Eosinophils Absolute Auto 0.1 K/mm3 (0-0.3); Hemoglobin 12.2 g/dL (14.0-18.0); Immature Granulocyte Absolute 0.02 K/mm3 (0.00-0.031); Immature Granulocyte Percent A 0.3 % (0-0.5); Lymphocytes Absolute Auto 1.76 K/mm3 (0.9-3.2); Lymphocytes Percent Auto 24.9 % (18.3-44.2); Mean Corpuscular HGB Conc 31.3 g/dl (32-36); Mean Corpuscular Hemoglobin 29.3 pg (26-34); Mean Corpuscular Volume 93.5 fl (80-100); Mean Platelet Volume 9.7 fl (7.4-10.4); Monocytes Absolute Auto 0.4 K/mm3 (0.1-0.6); Monocytes Percent Auto 4.9 % (2.6-8.5); Neutrophils Absolute Auto 4.8 K/mm3 (1.3-6.7); Neutrophils Percent Auto 68.1 % (45.5-73.1); Platelet Count Result 340 k/mm3 (150-375); Red Blood Count 4.17 M/mm3 (4.6-6.20); Red Cell Distribution Width 15.2 % (11.5-14.5); White Blood Count 7.1 K/mm3 (4.5-10.0)
[2021-10-28 10:05] LABS: Alanine Aminotransferase 10 U/L (6-50); Albumin Level 3.9 g/dL (3.5-5.1); Alkaline Phosphatase 64 U/L (38-126); Anion Gap 8 mmol/L (8-16); Aspartate Amino Transferase 18 U/L (17-59); Bilirubin,Total 0.2 mg/dL (0.2-1.3); Blood Urea Nitrogen 20 mg/dL (9-20); Calcium 8.5 mg/dL (8.4-10.2); Carbon Dioxide 24 mmol/L (22-30); Chloride 110 mmol/L (98-107); Estimated CRCL calculation 68 ml/min; Estimated Glomerular Filt Rate > 60; Glucose 87 mg/dL (65-110); Potassium 4.3 mmol/L (3.4-5.0); Sodium 142 mmol/L (137-145)
[2021-10-28 10:29] LABS: SARS-CoV-2 RNA PCR Negative
[2021-10-28] MEDS: ASPIRIN 325 MG TABLET PO (10:57)
[2021-10-28 11:01] VITALS: BP 119/54; PULSE 68; RESP 16; O2SAT 100
== END 2021-10-28 11:02 | disposition home or self-care (01) ==
PROVIDERS: Physician Assistant; Emergency Provider Emergency Medicine
DX: J06.9 Acute upper respiratory infection, unspecified (principal); Z20.822 Contact with and (suspected) exposure to COVID-19; M19.90 Unspecified osteoarthritis, unspecified site; F41.9 Anxiety disorder, unspecified; I50.9 Heart failure, unspecified; F32.9 Major depressive disorder, single episode, unspecified
CPT/HCPCS: 36415; 71046; 80053; 85025; 93005; 99284; A9270; C9803; U0003; U0005

== ENCOUNTER 2021-12-18 15:44 | Emergency (ER) | payer MEDICARE, MEDICAID, SELFPAY ==
--- NOTE | ~2021-12-18 | XR_ITS ---
EXAMINATION: XR chest 2V DATE: 12/18/2021 17:19 INDICATION: Weakness. Pain and swelling of the genitals. TECHNIQUE: Frontal and lateral views of the chest were obtained. COMPARISON: Chest 2 views 10/28/2021 FINDINGS: The chest demonstrates clear lungs without pneumonia, pleural effusion, or pneumothorax. Th e heart size is normal. IMPRESSION: 1. No acute cardiopulmonary disease. Reviewed, dictated and finalized at location A.
[2021-12-18 15:50] VITALS: BP 128/72; PULSE 89; RESP 16; TEMP 36.6; O2SAT 100
--- NOTE | 2021-12-18 15:59 | ECG_ITS ---
Measurements Intervals [place] Rate: 79 P: 69 MS: 205 QRS: 63 QRSD: 96 T: 69 QT: 367 QTc: 421 Interpretive Statements SINUS RHYTHM NONSPECIFIC T-WAVE ABNORMALITY COMPARED TO ECG 10/28/2021 09:16:32 T-WAVE ABNORMALITY NOW PRESENT Electronically Signed On 12-19-2021 13:32:53 CDT by Shyann Tai M.D.
[2021-12-18 16:20] LABS: Basophils Absolute Auto 0.1 K/mm3 (0.0-0.1); Basophils Percent Auto 0.6 % (0.2-1.2); Eosinophils Absolute Auto 0.1 K/mm3 (0-0.3); Hematocrit 43.2 % (42.0-52.0); Hemoglobin 13.7 g/dL (14.0-18.0); Immature Granulocyte Absolute 0.02 K/mm3 (0.00-0.031); Immature Granulocyte Percent A 0.2 % (0-0.5); Lymphocytes Absolute Auto 1.21 K/mm3 (0.9-3.2); Mean Corpuscular HGB Conc 31.7 g/dl (32-36); Mean Corpuscular Hemoglobin 29.3 pg (26-34); Mean Corpuscular Volume 92.5 fl (80-100); Mean Platelet Volume 9.7 fl (7.4-10.4); Monocytes Absolute Auto 0.7 K/mm3 (0.1-0.6); Monocytes Percent Auto 8.9 % (2.6-8.5); Neutrophils Percent Auto 74.3 % (45.5-73.1); Platelet Count Result 277 k/mm3 (150-375); Red Blood Count 4.67 M/mm3 (4.6-6.20); Red Cell Distribution Width 14.9 % (11.5-14.5); White Blood Count 8.1 K/mm3 (4.5-10.0)
[2021-12-18 16:40] LABS: Alanine Aminotransferase 11 U/L (6-50); Albumin Level 4.2 g/dL (3.5-5.1); Alkaline Phosphatase 79 U/L (38-126); Anion Gap 10 mmol/L (8-16); Aspartate Amino Transferase 22 U/L (17-59); Bilirubin,Total 0.3 mg/dL (0.2-1.3); Blood Urea Nitrogen 18 mg/dL (9-20); Calcium 8.6 mg/dL (8.4-10.2); Carbon Dioxide 27 mmol/L (22-30); Chloride 107 mmol/L (98-107); Estimated CRCL calculation 55 ml/min; Estimated Glomerular Filt Rate > 60; Glucose 94 mg/dL (65-110); Potassium 3.2 mmol/L (3.4-5.0); Sodium 144 mmol/L (137-145)
--- NOTE | 2021-12-18 17:00 | ED.GENADULT ---
HPI - General Adult General Chief complaint: Unspecified Stated complaint: weakness and swollen genitals Time Seen by Provider: 12/18/21 16:40 History of Present Illness HPI narrative: 71-year-old male history of CVA back in June presenting to the emergency department for evaluation of burning with urination and reporting difficulty in obtaining his medications, Plavix and aspirin. Patient states since being discharged he has not been taking his Plavix and aspirin because insurance is not covering it. Patient is homeless and declines to stay in a homeless intermediate. Patient does have slurred speech at baseline which he states is unchanged since his stroke back in August. Related Data Allergies Allergy/AdvReac Type Severity Reaction Status Date / Time No Known Allergies Allergy Verified 10/28/21 09:44 Review of Systems Review of Systems: CONSTITUTIONAL: Denies fever, chills, or sweats. EYES: Denies visual changes, redness, or discharge. ENT: Denies rhinorrhea, congestion, sore throat, or otalgia. CARDIOVASCULAR: Denies chest pain, palpitations, or edema. RESPIRATORY: Denies cough or dyspnea. GASTROINTESTINAL: Denies abdominal pain, nausea, vomiting, or diarrhea. GENITOURINARY: See HPI SKIN: Denies rash or itching. MUSCULOSKELETAL: Denies back pain, joint pain, or myalgia. NEUROLOGIC: No neurologic changes PSYCHIATRIC: Denies anxiety or depression. PMFSH Past Medical History Medical History Arthritis History of anxiety History of CHF (congestive heart failure) History of depression Normocytic anemia Tobacco abuse Social History Social History Smoking status: Current every day smoker Alcohol intake: unknown Substance use type: crack/cocaine Gender identity (if verbalized by the patient): Male Spiritual care concerns: No Exam Narrative: APPEARANCE: Well appearing, no pain, no distress, well-nourished. HEAD: normocephalic, atraumatic. EYES: PERRLA/EOMI, conjunctivae clear. NOSE: Normal no drainage EARS:TMS clear with good light reflex. THROAT: Pharynx clear, no exudate. NECK: Supple. No adenopathy, no masses. RESPIRATORY: Airway patent, respirations nonlabored. Clear to auscultation bilaterally, no rales, rhonchi, wheezing. CARDIOVASCULAR: Regular rate and rhythm without murmurs rubs or gallops. ABDOMINAL: Soft, nontender, nondistended, normal bowel sounds MUSCULOSKELETAL: Moves all extremities. Strength/ROM intact, No edema, No calf tenderness. NEURO: Alert. Cranial nerves II through XII intact. Grossly intact SKIN: Warm, dry. Normal Color Course Course Emergency Course: Care coordination was able to ensure the patient was able to get his meds. Patient continues to decline placement into a homeless intermediate. Patient was treated for a urinary tract infection. All questions and concerns were addressed and patient is comfortable with the plan for discharge to home. Vital Signs Vital signs: Vital Signs Temperature 97.8 F 12/18/21 15:50 Pulse Rate 89 12/18/21 15:50 Respiratory Rate 16 12/18/21 15:50 Blood Pressure 128/72 12/18/21 15:50 Pulse Oximetry 100 12/18/21 15:50 Oxygen Delivery Room Air 12/18/21 15:50 Temperature 97.8 F 12/18/21 15:50 Pulse Rate 69 12/18/21 18:36 Respiratory Rate 12 12/18/21 18:36 Blood Pressure 145/70 H 12/18/21 18:36 Pulse Oximetry 100 12/18/21 18:36 Oxygen Delivery Room Air 12/18/21 15:50 Medical Decision Making Vital Signs Vital Signs: Vital Signs Temperature 97.8 F 12/18/21 15:50 Pulse Rate 89 12/18/21 15:50 Respiratory Rate 16 12/18/21 15:50 Blood Pressure 128/72 12/18/21 15:50 Pulse Oximetry 100 12/18/21 15:50 Oxygen Delivery Room Air 12/18/21 15:50 Temperature 97.8 F 12/18/21 15:50 Pulse Rate 69 12/18/21 18:36 Respiratory Rate 12 12/18/21 18:36 Blood Pressure 145/70 H 12/18/21 18:36 Puls
[2021-12-18 17:39] LABS: Appearance Urine Cloudy (Clear); Bilirubin Urine 1+ (Negative); Blood Urine 2+ (Negative); Glucose Urine UA Trace mg/dL (Negative); Ketones Urine Trace mg/dL (Negative); Leukocyte Esterase Ur 2+ LEU/UL (Negative); Nitrate Urine Positive (Negative); Protein Urine 1+ mg/dL (Negative); Specific Grav Ur 1.025 (1.001-1.035); pH Urine 5.5 (5.0-9.0)
[2021-12-18 17:47] LABS: Add Urine Microscopic? YES; Bacteria Urine Trace /hpf; Color Urine Dark Yellow (Yellow); Mucus Urine Moderate /lpf; RBC Urine 21-50 /hpf (0-2); Squamous Epithelial Cell Urine Occasional /hpf (Few); WBC Clumps Urine Present /HPF; WBC Urine >75 /hpf
[2021-12-18 18:36] VITALS: BP 145/70; PULSE 69; RESP 12; O2SAT 100
[2021-12-18] MEDS: PHENAZOPYRIDINE HCL 100 MG TABLET PO (18:37)
[2021-12-18] MEDS: POTASSIUM CHLORIDE 20 MEQ PACKET (FOR LIQUID) 40 MEQ PO (18:37)
--- NOTE | 2021-12-18 18:55 | PCCCNOTE ---
Requested by Dr. Lockhart to meet with patient regarding homelessness and not being able to get his medications. Met with patient at bedside in [place]. He states that he is homeless and wanders around [place]. Asked if he would be open to homeless shelters and he states he will absolutely not go to a homeless senior care. He wants to be transported back to [place] when discharged. He states that he gets his meds at [facility] in [place] and provides this healthcare technician with his discharge paperwork from August. He states that he couldn't get his meds since the pharmacy was waiting on a call from his doctor. Patient confirms that he has [place]. Called to [facility] and karishma Claudio, she reviews the system and notices that it looks like pharmacy coverage elapsed at end of August 2021. Patient was able to provide update card and all details were provided to Shanon and she ran all through. Per Shanon Atorvastatin and Plavix will be covered through insurance and for 3 months will be 6.91. The ASA is OTC so it is not covered. Advised to Shanon that patient has a [employer] Card and she states that that card should cover the OTC ASA cost. Patient does not like his PCP. Provided him with resources for clinics and homeless shelters. Patient takes the bus around [facility] and is agreeable to bus tokens if he discharges tonight. Provided patient with all of his paperwork and insurance cards back. Explained that information to the patient all the information pharmacy provided and patient verbalizes understanding. Updated provider and bedside RN Bravo. Bus tokens given to B[place] for patient if needed.
== END 2021-12-18 19:41 | disposition home or self-care (01) ==
PROVIDERS: Emergency Medicine; Emergency Provider Emergency Medicine
DX: N39.0 Urinary tract infection, site not specified (principal); I50.9 Heart failure, unspecified; Z79.02 Long term (current) use of antithrombotics/antiplatelets; Z79.82 Long term (current) use of aspirin; Z59.00 Homelessness unspecified
CPT/HCPCS: 36415; 71046; 80053; 81001; 85025; 87077; 87086; 87186; 93005; 96365; 99284; A9270; J0696

== ENCOUNTER 2022-08-14 12:45 | Emergency (ER) | payer MEDICARE, MEDICAID, SELFPAY ==
--- NOTE | ~2022-08-14 | XR_ITS ---
EXAMINATION: XR chest 2V DATE: 08/14/2022 13:16 INDICATION: Cough TECHNIQUE: PA and lateral views of the chest are obtained. COMPARISON: 12/18/2021 FINDINGS: The lungs are free of acute opacities. No pleural effusion or pneumothorax. The cardiomedia stinal silhouette is normal. There is moderate thoracic spondylosis. IMPRESSION: 1. No acute cardiopulmonary abnormality. Reviewed, dictated and finalized at location A.
[2022-08-14 12:48] VITALS: BP 136/80; PULSE 87; RESP 18; TEMP 36.4; O2SAT 100
[2022-08-14 13:01] VITALS: BP 135/89; PULSE 78; RESP 17; TEMP 36.8; O2SAT 100
--- NOTE | 2022-08-14 13:08 | ED.URI ---
HPI - URI/Sore Throat General Chief Complaint: Upper Respiratory Infection Stated Complaint: cold like symptoms Time Seen by Provider: 08/14/22 13:00 History of Present Illness HPI Narrative: This is a 71-year-old male with past medical history of stroke with residual expressive aphasia, who presents to the emergency department complaining of cough for the past week. He states 1 week ago he was caught in the rain, and since then he has had cough productive of yellow, nonbloody phlegm and generalized weakness. Related Data Allergies Allergy/AdvReac Type Severity Reaction Status Date / Time No Known Allergies Allergy Verified 08/14/22 12:56 Review of Systems Review of Systems: CONSTITUTIONAL: fever, chills, Denies sweats. ENT: rhinorrhea, congestion, Denies sore throat, or otalgia. CARDIOVASCULAR: Chest soreness with coughing denies palpitations, or edema. RESPIRATORY: Cough productive of yellow, nonbloody mucus denies dyspnea. GASTROINTESTINAL: Denies abdominal pain, nausea, vomiting, or diarrhea. GENITOURINARY: Denies dysuria or hematuria. SKIN: Denies rash or itching. MUSCULOSKELETAL: Denies back pain, joint pain, or myalgia. NEUROLOGIC: Denies headache, numbness, dizziness, or weakness. PSYCHIATRIC: Denies anxiety or depression. [facility] Past Medical History Medical History Arthritis History of anxiety History of CHF (congestive heart failure) History of depression Normocytic anemia Tobacco abuse Social History Social History Smoking status: Current every day smoker Alcohol intake: unknown Substance use type: crack/cocaine Gender identity (if verbalized by the patient): Male Spiritual care concerns: No Exam Narrative: GENERAL: Well-developed, well-nourished, and in no acute distress. HEAD: Normocephalic, atraumatic. EYES: PERRLA and EOMI. ENT: Nares clear, no rhinorrhea or epistaxis. Mucous membranes moist. Oropharynx without tonsillar hypertrophy exudate or other lesions. NECK: Supple. No adenopathy or masses. JVD noted approximately 1 cm above clavicle. No carotid bruits CHEST: Good aeration, with faint Rales in the bilateral lower lung de la cruz, greater on the left than the right. No respiratory distress. No wheezes or rhonchi HEART: Regular rate and rhythm. No murmur heard. Normal peripheral pulses. ABDOMEN: Soft, nontender, nondistended, normal active bowel sounds. EXTREMITIES: Normal range of motion. No edema. SKIN: Warm, dry, no rash. NEURO: No focal deficits. Alert and oriented x3. Strength 5/5 in all extremities, sensation intact bilaterally. No noted ataxia. Slightly hesitant speech. PSYCH: Normal mood and affect. Course Course Emergency Course: 15:00 - CBC unremarkable. Chemistries unremarkable. The patient tested negative for influenza and COVID. Chest x-ray was not concerning for acute cardiothoracic abnormality. I discussed these findings with the patient including recommendations for regular hydration, Tylenol as needed for pain and use of [id number] antitussive medications. Discussed return and emergency precautions including signs/symptoms of ACS and respiratory distress. The patient voiced understanding and is comfortable with the plan. All questions answered to his satisfaction. Vital Signs Vital signs: Vital Signs Temperature 97.5 F L 08/14/22 12:48 Pulse Rate 87 08/14/22 12:48 Respiratory Rate 18 08/14/22 12:48 Blood Pressure 136/80 08/14/22 12:48 Pulse Oximetry 100 08/14/22 12:48 Oxygen Delivery Room Air 08/14/22 12:48 Temperature 98.3 F 08/14/22 13:01 Pulse Rate 78 08/14/22 15:10 Respiratory Rate 18 08/14/22 15:10 Blood Pressure 126/84 08/14/22 15:10 Pulse Oximetry 97 08/14/22 15:10 Oxygen Delivery Room Air 08/14/22 13:01 MDM - URI/Sore Throat MDM Narrative Medical decision making narrative: Plan: L
[2022-08-14 13:30] LABS: Basophils Percent Auto 0.5 % (0.2-1.2); Eosinophils Percent Auto 0.5 % (0-4.4); Hematocrit 46.4 % (42.0-52.0); Hemoglobin 14.3 g/dL (14.0-18.0); Immature Granulocyte Absolute 0.01 K/mm3 (0.00-0.031); Immature Granulocyte Percent A 0.2 % (0-0.5); Lymphocytes Absolute Auto 1.69 K/mm3 (0.9-3.2); Lymphocytes Percent Auto 27.4 % (18.3-44.2); Mean Corpuscular HGB Conc 30.8 g/dl (32-36); Mean Corpuscular Hemoglobin 28.9 pg (26-34); Mean Corpuscular Volume 93.9 fl (80-100); Mean Platelet Volume 9.3 fl (7.4-10.4); Monocytes Absolute Auto 0.3 K/mm3 (0.1-0.6); Monocytes Percent Auto 4.9 % (2.6-8.5); Neutrophils Absolute Auto 4.1 K/mm3 (1.3-6.7); Neutrophils Percent Auto 66.5 % (45.5-73.1); Platelet Count Result 226 k/mm3 (150-375); Red Blood Count 4.94 M/mm3 (4.6-6.20); Red Cell Distribution Width 13.3 % (11.5-14.5); White Blood Count 6.2 K/mm3 (4.5-10.0)
[2022-08-14 13:41] LABS: Alanine Aminotransferase 15 U/L (6-50); Albumin Level 4.2 g/dL (3.5-5.1); Alkaline Phosphatase 76 U/L (38-126); Anion Gap 4 mmol/L (8-16); Aspartate Amino Transferase 23 U/L (17-59); Bilirubin,Total 0.8 mg/dL (0.2-1.3); Blood Urea Nitrogen 13 mg/dL (9-20); Calcium 8.5 mg/dL (8.4-10.2); Carbon Dioxide 30 mmol/L (22-30); Chloride 107 mmol/L (98-107); Estimated CRCL calculation 55 ml/min; Estimated Glomerular Filt Rate > 60; Glucose 90 mg/dL (65-110); Potassium 4.2 mmol/L (3.4-5.0); Sodium 141 mmol/L (137-145)
[2022-08-14] MEDS: ACETAMINOPHEN 500 MG TABLET 1000 MG PO (14:10)
[2022-08-14 14:32] LABS: Influenza A QL RT-PCR Negative (Negative); Influenza B QL RT-PCR Negative (Negative); SARS-CoV-2 RNA PCR Negative
[2022-08-14 15:10] VITALS: BP 126/84; PULSE 78; RESP 18; O2SAT 97
== END 2022-08-14 15:12 | disposition home or self-care (01) ==
PROVIDERS: Emergency Provider Preventive Medicine Aerospace Medicine
DX: J06.9 Acute upper respiratory infection, unspecified (principal); Z20.822 Contact with and (suspected) exposure to COVID-19; I69.320 Aphasia following cerebral infarction; I50.9 Heart failure, unspecified; M19.90 Unspecified osteoarthritis, unspecified site; F17.200 Nicotine dependence, unspecified, uncomplicated; Z86.2 Personal history of diseases of the blood and blood-forming organs and certain disorders involving the immune mechanism; Z79.82 Long term (current) use of aspirin
CPT/HCPCS: 36415; 71046; 80053; 85025; 87636; 99283; A9270

== ENCOUNTER 2022-11-03 11:40 | Emergency (ER) | payer MEDICARE, MEDICAID, SELFPAY ==
[2022-11-03 11:48] VITALS: BP 129/109; PULSE 100; RESP 16; TEMP 36.2; O2SAT 98
--- NOTE | 2022-11-03 12:42 | PC.NURSE ---
pt c/o headache, bilateral knee pain, numbness and tingling in left arm but right arm had weakness. also c/o loss of vision in bilateral eyes due to cataracts.
--- NOTE | 2022-11-03 13:44 | PC.NURSE ---
attempted to verify medications from pt. pt unable to verify
--- NOTE | 2022-11-03 13:46 | PC.NURSE ---
provider made aware of patient being unable to verify what medications he is taking.
[2022-11-03 14:01] VITALS: BP 132/70; PULSE 68; RESP 16; O2SAT 97
--- NOTE | 2022-11-03 14:28 | ED.GENADULT ---
HPI - General Adult General Chief complaint: Unspecified Stated complaint: multiple complaints Time Seen by Provider: 11/03/22 11:59 History of Present Illness HPI narrative: Patient is a 71-year-old male who presents ER with multiple complaints. His first complaint is that he has pain in his right knee. There has been a chronic amount of pain. He is supposed to see Dr. Sellers at [facility] to have a knee surgery. No new injury/redness/swelling. He also reports that he has cataracts that need to be fixed because they are impairing his vision. He has no acute change in his vision. No pain in his eyes. Furthermore he also is requesting a medication refill as he is run out of medication but he does not know the names of the medications nor the dosages. Patient has had a stroke in the past and has some expressive speech issues but he is able to convey his concerns at this time. Related Data Allergies Allergy/AdvReac Type Severity Reaction Status Date / Time No Known Allergies Allergy Verified 11/03/22 11:43 Review of Systems Constitutional: Constitutional: Denies chills and Denies fever(s) Cardiovascular: Cardiovascular: Denies chest pain, Denies rapid heart rate and Denies radiating jaw, neck or arm pain Respiratory: Respiratory: Denies cough and Denies dyspnea Musculoskeletal: Musculoskeletal: Reports arthralgias, Denies joint swelling, Denies muscle cramps and Denies muscle weakness Neurologic: Denies focal weakness and Denies numbness PMFSH Past Medical History Medical History (Updated 11/03/22 @ 14:31 by Qasim Wheeler MD) Arthritis History of anxiety History of CHF (congestive heart failure) History of depression Normocytic anemia Tobacco abuse Surgical History Surgical History (Updated 11/03/22 @ 19:35 by Qasim Wheeler MD) History of left knee replacement Social History Social History Smoking status: Current every day smoker Alcohol intake: unknown Substance use type: crack/cocaine Gender identity (if verbalized by the patient): Male Spiritual care concerns: No Exam Narrative: GENERAL: Well-appearing, well-nourished, and in no acute distress. HEAD: Normocephalic, atraumatic. EYES: PERRL and EOMI. ENT: Nares clear, no rhinorrhea or epistaxis. Mucous membranes moist. NECK: Supple. CHEST: Clear to auscultation. No respiratory distress. HEART: Regular rate and rhythm. Normal peripheral pulses. EXTREMITIES: Normal range of motion. No edema. Chronic deformity right knee without effusion or erythema. SKIN: Warm, dry, no rash. NEURO: Alert and oriented x3. Mild expressive aphasia. PSYCH: Normal mood and affect. Course Course Emergency Course: Patient resting comfortably. We reviewed patient's outside medications from pharmacy but he reports that that is not what he takes so he will have nothing refilled. He will be discharged at this time. No acute complaint requiring intervention. Vital Signs Vital signs: Vital Signs Temperature 97.1 F L 11/03/22 11:48 Pulse Rate 100 11/03/22 11:48 Respiratory Rate 16 11/03/22 11:48 Blood Pressure 129/109 H 11/03/22 11:48 Pulse Oximetry 98 11/03/22 11:48 Oxygen Delivery Room Air 11/03/22 11:48 Temperature 97.1 F L 11/03/22 11:48 Pulse Rate 68 11/03/22 14:01 Respiratory Rate 16 11/03/22 14:01 Blood Pressure 132/70 11/03/22 14:01 Pulse Oximetry 97 11/03/22 14:01 Oxygen Delivery Room Air 11/03/22 11:48 Medical Decision Making Vital Signs Vital Signs: Vital Signs Temperature 97.1 F L 11/03/22 11:48 Pulse Rate 100 11/03/22 11:48 Respiratory Rate 16 11/03/22 11:48 Blood Pressure 129/109 H 11/03/22 11:48 Pulse Oximetry 98 11/03/22 11:48 Oxygen Delivery Room Air 11/03/22 11:48 Temperature 97.1 F L 11/03/22 11:48 Pulse Rate 68 11/03/22 14:01 Respiratory Rate 16 11/03/22 14:01 Blood Pressure
== END 2022-11-03 14:42 | disposition home or self-care (01) ==
PROVIDERS: Emergency Provider Emergency Medicine
DX: M25.561 Pain in right knee (principal); G89.29 Other chronic pain; I50.9 Heart failure, unspecified; I69.328 Other speech and language deficits following cerebral infarction; D64.9 Anemia, unspecified; Z96.652 Presence of left artificial knee joint; F17.200 Nicotine dependence, unspecified, uncomplicated; Z79.82 Long term (current) use of aspirin
CPT/HCPCS: 99283

== ENCOUNTER 2023-01-25 22:36 | Emergency (ER) | payer MEDICARE, MEDICAID, SELFPAY ==
--- NOTE | ~2023-01-25 | XR_ITS ---
EXAMINATION: XR knee RT 3V DATE: 01/26/2023 03:57 INDICATION: Right knee pain. TECHNIQUE: 3 views of right knee were obtained. COMPARISON: Right knee radiographs 10/01/2019 FINDINGS: There is varus angulation at the knee. No fracture. There is severe osteoarthritis of media l and patellofemoral compartments and moderate osteoarthritis of lateral compartment. There is a larg e knee joint effusion. IMPRESSION: 1. Severe right knee osteoarthritis. 2. Large right knee joint effusion again seen. Reviewed, dictated and finalized at location E.
--- NOTE | ~2023-01-25 | XR_ITS ---
EXAMINATION: XR knee LT 3V DATE: 01/26/2023 03:57 INDICATION: Left knee pain. TECHNIQUE: 3 views of left knee were obtained. COMPARISON: Left knee radiographs 03/11/2017 FINDINGS: There is a total left knee arthroplasty with patellar resurfacing in near-anatomic alignmen t. No periprosthetic lucency to suggest loosening or infection. No fracture. No knee joint effusion. IMPRESSION: 1. Total left knee arthroplasty in near-anatomic alignment. Reviewed, dictated and finalized at location E.
[2023-01-25 22:41] VITALS: BP 149/72; PULSE 78; RESP 20; TEMP 36.8; O2SAT 97
[2023-01-26 00:38] VITALS: BP 132/74; PULSE 73; RESP 18; TEMP 36.4; O2SAT 99
--- NOTE | 2023-01-26 00:39 | PC.NURSE ---
Pt given update on wait times.
[2023-01-26 03:38] VITALS: BP 130/80; PULSE 65; RESP 20; O2SAT 100
--- NOTE | 2023-01-26 04:41 | ED.GENADULT ---
HPI - General Adult General Chief complaint: Extremity Problem,Nontraumatic Stated complaint: bilateral leg pain/swelling Time Seen by Provider: 01/26/23 03:02 History of Present Illness HPI narrative: Patient is a 72-year-old gentleman who presents the emergency department with chief complaint of knee pain. The patient reports that he has chronic knee pain reports that he had a knee replacement on the left and reports that the right has not had a replacement. The patient reports the pain is worse with walking and improved with rest. The patient reports that he has had no new injuries Related Data Allergies Allergy/AdvReac Type Severity Reaction Status Date / Time No Known Allergies Allergy Verified 01/25/23 22:36 Review of Systems Review of Systems: A 10 system review of systems was completed on the patient and is negative except for what is stated in the HPI. Nursing and ancillary documentation was reviewed. [facility] Past Medical History Medical History Arthritis History of anxiety History of CHF (congestive heart failure) History of depression Normocytic anemia Tobacco abuse Surgical History Surgical History History of left knee replacement Social History Social History Smoking status: Current every day smoker Alcohol intake: unknown Substance use type: crack/cocaine Gender identity (if verbalized by the patient): Male Spiritual care concerns: No Exam Narrative: GENERAL: Well-appearing, well-nourished, and in no acute distress. HEAD: Normocephalic, atraumatic. EYES: PERRLA and EOMI. ENT: Nares clear, no rhinorrhea or epistaxis. Mucous membranes moist. NECK: Supple. CHEST: Clear to auscultation. No respiratory distress. HEART: Regular rate and rhythm. No murmur heard. Normal peripheral pulses. ABDOMEN: Soft, nontender, nondistended, normal active bowel sounds. EXTREMITIES: Normal range of motion in upper extremities, limited in bilateral knees. There is a scar from previous knee replacement on the left there is swelling present of the right knee. There is no erythema there is no crepitance there is no fluctuance.. No edema. SKIN: Warm, dry, no rash. NEURO: No focal deficits. Alert and oriented x3. PSYCH: Normal mood and affect. Course Vital Signs Vital signs: Vital Signs Temperature 36.8 C 01/25/23 22:41 Pulse Rate 78 01/25/23 22:41 Respiratory Rate 20 01/25/23 22:41 Blood Pressure 149/72 H 01/25/23 22:41 Pulse Oximetry 97 01/25/23 22:41 Oxygen Delivery Room Air 01/25/23 22:41 Temperature 36.4 C 01/26/23 00:38 Pulse Rate 65 01/26/23 03:38 Respiratory Rate 01/26/23 03:38 Blood Pressure 130/80 01/26/23 03:38 Pulse Oximetry 100 01/26/23 03:38 Oxygen Delivery Room Air 01/25/23 22:41 Medical Decision Making MDM Narrative Medical decision making narrative: Differential diagnosis includes osteoarthritis, fracture X-ray showed no evidence of fracture no displacement of the hardware on the left there was significant osteoarthritis present in the right knee. Vital Signs Vital Signs: Vital Signs Temperature 36.8 C 01/25/23 22:41 Pulse Rate 78 01/25/23 22:41 Respiratory Rate 01/25/23 22:41 Blood Pressure 149/72 H 01/25/23 22:41 Pulse Oximetry 97 01/25/23 22:41 Oxygen Delivery Room Air 01/25/23 22:41 Temperature 36.4 C 01/26/23 00:38 Pulse Rate 65 01/26/23 03:38 Respiratory Rate 01/26/23 03:38 Blood Pressure 130/80 01/26/23 03:38 Pulse Oximetry 100 01/26/23 03:38 Oxygen Delivery Room Air 01/25/23 22:41 Discharge Plan Discharge Clinical Impression: Bilateral knee pain Patient Disposition: Home, Self-Care Condition: Stable Instructions: Antibiotic Form, Knee Pain (ED) Presc
== END 2023-01-26 04:51 | disposition home or self-care (01) ==
PROVIDERS: Emergency Provider Emergency Medicine
DX: M25.562 Pain in left knee (principal); M25.561 Pain in right knee; G89.29 Other chronic pain; F17.200 Nicotine dependence, unspecified, uncomplicated; Z96.652 Presence of left artificial knee joint; I50.9 Heart failure, unspecified; Z79.82 Long term (current) use of aspirin; Z79.02 Long term (current) use of antithrombotics/antiplatelets
CPT/HCPCS: 73562; 99284

== ENCOUNTER 2023-04-21 18:37 | Emergency (ER) | payer MEDICARE, MEDICAID, SELFPAY ==
[2023-04-21 18:46] VITALS: BP 158/90; PULSE 82; RESP 16; TEMP 36.8; O2SAT 100
--- NOTE | 2023-04-21 20:41 | ED.EYEPROB ---
HPI - Eye Problem General Chief complaint: Eye Problems Stated complaint: swelling to eyes Time Seen by Provider: 04/21/23 20:31 History of Present Illness HPI Narrative: Patient is a 72-year-old male with history of CVA and expressive aphasia who presents the ER with left eye pain. Ongoing for 1 week. Itching in nature. Feels like there is something in his eye. Denies trauma. He has no blurry vision but does have frequent tearing. Patient reports cataract surgery on the same eye 5 months ago. No issues at that time. Related Data Allergies Allergy/AdvReac Type Severity Reaction Status Date / Time No Known Allergies Allergy Verified 01/25/23 22:36 Review of Systems Constitutional: Constitutional: Reports no additional constitutional complaints Eyes: Eyes: Denies change in vision and Denies photophobia Comments: left eye itching/pain with tearing PMFSH Past Medical History Medical History Arthritis History of anxiety History of CHF (congestive heart failure) History of depression Normocytic anemia Tobacco abuse Surgical History Surgical History History of left knee replacement Social History Social History Smoking status: Current every day smoker Alcohol intake: unknown Substance use type: crack/cocaine Gender identity (if verbalized by the patient): Male Spiritual care concerns: No Exam Narrative: GENERAL: Well-appearing, well-nourished, and in no acute distress. HEAD: Normocephalic, atraumatic. EYES: PERRL and EOMI. Left eye with conjunctival irritation but no such irritation in the right eye. Left eye with corneal abrasion 6 o'clock position. No foreign body. A slit-lamp was used. ENT: Mucous membranes moist. NEURO: Mild expressive aphasia. Alert and oriented x3. PSYCH: Normal mood and affect. Course Course Emergency Course: Discussed treatment plan. Discharged home. Patient would also like to remain orthopedic surgeon because he would like his knee replaced. Vital Signs Vital signs: Vital Signs Temperature 98.2 F 04/21/23 18:46 Pulse Rate 82 04/21/23 18:46 Respiratory Rate 16 04/21/23 18:46 Blood Pressure 158/90 H 04/21/23 18:46 Pulse Oximetry 100 04/21/23 18:46 Oxygen Delivery Room Air 04/21/23 18:46 Temperature 98.2 F 04/21/23 18:46 Pulse Rate 82 04/21/23 18:46 Respiratory Rate 16 04/21/23 18:46 Blood Pressure 158/90 H 04/21/23 18:46 Pulse Oximetry 100 04/21/23 18:46 Oxygen Delivery Room Air 04/21/23 18:46 Discharge Plan Discharge Clinical Impression: Corneal abrasion Patient Disposition: Home, Self-Care Condition: Stable Instructions: Antibiotic Form, Corneal Abrasion (ED) Additional Instructions: Follow-up with your eye doctor in regards to your eye discomfort in corneal abrasion. Return ER if you suffered a new injury, you go blind, or you have additional concerns. Prescriptions: New erythromycin 5 mg/gram (0.5 %) ointment 1 applic LEFT EYE Q4H Qty: 3.5 0RF carboxymethylcellulose sodium [Refresh Tears] 0.5 % drops 1 drp EACH EYE QID Qty: 15 0RF No Action aspirin [Children's Aspirin] 81 mg Tablet,Chewable 81 mg PO DAILY@0800 Qty: 30 0RF atorvastatin 40 mg Tablet 40 mg PO DAILY Qty: 30 0RF clopidogrel 75 mg Tablet 75 mg PO QAM Qty: 30 0RF cephalexin 500 mg capsule 500 mg PO Q12H 7 Days Qty: 14 0RF phenazopyridine [Pyridium] 100 mg tablet 100 mg PO TID PRN (Reason: pain) Qty: 6 0RF Follow-up/Referrals: PHYSICIAN,KNOT BORER [Primary Care Provider] - Nikolai Gamble MD [Physician] - 1 Month
[2023-04-21] MEDS: FLUORESCEIN SOD 1 MG/STRIP LEFT EYE (20:48)
[2023-04-21] MEDS: TETRACAINE HCL 0.5% OPHTH SOLN 4 ML BTL LEFT EYE (20:48)
[2023-04-21 21:27] VITALS: BP 147/72; PULSE 75; RESP 17; O2SAT 98
== END 2023-04-21 21:28 | disposition home or self-care (01) ==
PROVIDERS: Emergency Provider Emergency Medicine
DX: S05.02XA Injury of conjunctiva and corneal abrasion without foreign body, left eye, initial encounter (principal); I50.9 Heart failure, unspecified; I69.920 Aphasia following unspecified cerebrovascular disease; M19.90 Unspecified osteoarthritis, unspecified site; Z98.42 Cataract extraction status, left eye; Z86.2 Personal history of diseases of the blood and blood-forming organs and certain disorders involving the immune mechanism; Z96.652 Presence of left artificial knee joint; F17.200 Nicotine dependence, unspecified, uncomplicated; Z79.82 Long term (current) use of aspirin; X58.XXXA Exposure to other specified factors, initial encounter
CPT/HCPCS: 99283

== ENCOUNTER 2023-08-19 21:42 | Emergency (ER) | payer MEDICARE, MEDICAID, SELFPAY ==
[2023-08-19] VITALS (13 sets, daily range): BP systolic 115–141; BP diastolic 58–111; PULSE 76–84; RESP 18–22; TEMP 36.4; O2SAT 98–100
--- NOTE | ~2023-08-19 | CT_ITS ---
EXAMINATION: CTA chest PE protocol DATE: 08/19/2023 23:33 INDICATION: Chest pain. Shortness of breath. Cough. TECHNIQUE: Computed tomography angiography (CTA) of the chest was performed with 100 mL Omnipaque-350 intravenous contrast timed to evaluate the pulmonary arteries. Coronal maximum intensity projection 3D-reconstructions were created by the technologist. Automated exposure control and iterative reconst ruction technique were employed. The dose-length product was 228.25 mGy-cm. COMPARISON: None. FINDINGS: There is mild emphysema. There is mucous plugging in left lower lobe. There is mild atelect asis bilaterally. There is mild scarring in paraspinal right lower lobe. No pleural effusion. The hea rt size is normal. No pericardial effusion. There is no pulmonary embolus. There is a large volume of food in the stomach. There are bridging endplate osteophytes at multiple levels in the spine, consis tent with diffuse idiopathic skeletal hyperostosis (DISH). There is mild chronic anterior wedging of multiple vertebral bodies. IMPRESSION: 1. No pulmonary embolus. 2. Mucous plugging in left lung lower lobe. 3. Mild emphysema. Reviewed, dictated and finalized at location E.
--- NOTE | ~2023-08-19 | XR_ITS ---
EXAMINATION: XR chest 2V DATE: 08/19/2023 22:25 INDICATION: Shortness of breath. TECHNIQUE: Frontal and lateral views of the chest were obtained. COMPARISON: None. FINDINGS: There is no pneumonia, pleural effusion, or pneumothorax. The heart size is normal. IMPRESSION: 1. No acute cardiopulmonary disease. Reviewed, dictated and finalized at location E.
--- NOTE | 2023-08-19 21:50 | ECG_ITS ---
SEE SCANNED COPY FOR CONFIRMED REPORT MTDD
[2023-08-19 22:08] LABS: Basophils Absolute Auto 0.1 K/mm3 (0.0-0.1); Basophils Percent Auto 0.8 % (0.2-1.2); Eosinophils Absolute Auto 0.1 K/mm3 (0-0.3); Eosinophils Percent Auto 1.1 % (0-4.4); Hematocrit 44.6 % (42.0-52.0); Hemoglobin 14.2 g/dL (14.0-18.0); Immature Granulocyte Absolute 0.02 K/mm3 (0.00-0.031); Immature Granulocyte Percent A 0.3 % (0-0.5); Lymphocytes Absolute Auto 1.91 K/mm3 (0.9-3.2); Lymphocytes Percent Auto 29.3 % (18.3-44.2); Mean Corpuscular HGB Conc 31.8 g/dl (32-36); Mean Corpuscular Hemoglobin 29.9 pg (26-34); Mean Corpuscular Volume 93.9 fl (80-100); Mean Platelet Volume 9.4 fl (7.4-10.4); Monocytes Absolute Auto 0.4 K/mm3 (0.1-0.6); Monocytes Percent Auto 6.3 % (2.6-8.5); Neutrophils Absolute Auto 4.1 K/mm3 (1.3-6.7); Neutrophils Percent Auto 62.2 % (45.5-73.1); Platelet Count Result 275 k/mm3 (150-375); Red Blood Count 4.75 M/mm3 (4.6-6.20); Red Cell Distribution Width 13.2 % (11.5-14.5); White Blood Count 6.5 K/mm3 (4.5-10.0)
[2023-08-19 22:19] LABS: Alanine Aminotransferase 10 U/L (6-50); Albumin Level 4.5 g/dL (3.5-5.1); Alkaline Phosphatase 77 U/L (38-126); Anion Gap 2 mmol/L (4-12); Aspartate Amino Transferase 19 U/L (17-59); Bilirubin,Total 0.6 mg/dL (0.2-1.3); Blood Urea Nitrogen 24 mg/dL (9-20); Calcium 9.3 mg/dL (8.4-10.2); Carbon Dioxide 32 mmol/L (22-30); Chloride 106 mmol/L (98-107); Estimated CRCL calculation 40 ml/min; Estimated Glomerular Filt Rate > 60; Glucose 99 mg/dL (65-110); INR 1.1; Potassium 4.5 mmol/L (3.4-5.0); Prothrombin Time 14.4 Seconds (11.1-14.7); Sodium 140 mmol/L (137-145)
[2023-08-19 22:20] LABS: Partial Thromboplastin Time 31.5 Seconds (22.3-36.8)
[2023-08-19 22:22] LABS: Magnesium 2.1 mg/dL (1.6-2.3)
[2023-08-19 22:27] LABS: NT Pro B Type Natriuretic Pept 109 pg/mL (19.9-100)
[2023-08-19 22:28] LABS: D Dimer 0.54 ug/mL (<0.48)
[2023-08-19 22:35] LABS: Troponin I < 0.012 ng/mL (0.000-0.034)
[2023-08-19 22:46] LABS: Influenza A QL RT-PCR Negative (Negative); Influenza B QL RT-PCR Negative (Negative); RSV RNA, RT-PCR Negative (Negative); SARS-CoV-2 RNA PCR Negative (Negative)
--- NOTE | 2023-08-19 23:19 | PC.NURSE ---
assumed care of pt at this time. pt resting in bed. food provided.
--- NOTE | 2023-08-19 23:45 | ED.URI ---
HPI - URI/Sore Throat General Chief Complaint: Upper Respiratory Infection Stated Complaint: upper resp symptoms Time Seen by Provider: 08/19/23 21:50 Source: patient Mode of arrival: ambulatory Limitations: no limitations History of Present Illness HPI Narrative: Patient is a 72 y/o male who presents to the ED with c/o SOB. Patient is currently homeless. He reports over the last 2 weeks, he has had cough, congestion, rhinorrhea, pleuritic pain with coughing, subjective fevers, shortness breath - worse with exertion. States he feels as though his chest is congested, but he is unable to get out the mucus. Denies chest pain at rest. Denies pain or swelling in lower extremities. Patient has not tried anything for symptoms. Denies sick contacts. Related Data Allergies Allergy/AdvReac Type Severity Reaction Status Date / Time No Known Allergies Allergy Verified 08/19/23 21:49 Review of Systems Review of Systems: CONSTITUTIONAL: Reports subjective fevers. ENT: See HPI. CARDIOVASCULAR: Denies chest pain, palpitations, or edema. RESPIRATORY: See HPI. GASTROINTESTINAL: Denies abdominal pain, nausea, vomiting. All systems reviewed & are unremarkable except as noted in HPI and below PMFSH Past Medical History Medical History Arthritis History of anxiety History of CHF (congestive heart failure) History of depression Normocytic anemia Tobacco abuse Surgical History Surgical History History of left knee replacement Social History Social History Smoking status: Current every day smoker Alcohol intake: unknown Substance use type: crack/cocaine Gender identity (if verbalized by the patient): Male Spiritual care concerns: No Exam Narrative: GENERAL: Elderly, chronically ill appearing, thin, non-toxic, in no acute distress. HEAD: Normocephalic, atraumatic. RESPIRATORY: Airway patent, respirations nonlabored. Decreased lung sounds in bases bilaterally. No significant wheezing. Frequent coughing on exam. CARDIOVASCULAR: Regular rate and rhythm without murmurs, rubs, or gallops. ABDOMINAL: Soft, nontender, nondistended. Normoactive BS. MUSCULOSKELETAL: Moves all extremities. No gross deformities. No lower extremity edema. No calf tenderness. SKIN: Warm, dry, normal color. NEURO: A&O X3. Speech clear. Cranial nerves II-XII grossly intact. Steady gait. No ataxic movements. PSYCHIATRIC: Appropriate mood and affect. Normal interaction. Course Vital Signs Vital signs: Vital Signs Temperature 97.6 F 08/19/23 21:45 Pulse Rate 84 08/19/23 21:45 Respiratory Rate 18 08/19/23 21:45 Blood Pressure 128/111 H 08/19/23 21:45 Pulse Oximetry 99 08/19/23 21:45 Oxygen Delivery Room Air 08/19/23 21:45 Temperature 97.6 F 08/19/23 21:45 Pulse Rate 68 08/20/23 01:06 Respiratory Rate 16 08/20/23 01:06 Blood Pressure 186/86 H 08/20/23 01:06 Pulse Oximetry 98 08/20/23 01:06 Oxygen Delivery Room Air 08/19/23 22:03 MDM - URI/Sore Throat MDM Narrative Medical decision making narrative: Patient presented to ED with 2 week history of URI symptoms, shortness of breath. Vital signs are stable upon arrival. Patient in no acute distress. Afebrile. Oxygen stable on room air. EKG without concerning ischemic changes. Baseline troponin is negative. Patient reporting pleuritic pain with coughing, otherwise denies chest pain. Laboratory studies are unremarkable. No leukocytosis. Stable electrolytes and kidney function. Viral swabs negative. CXR Clear. D-dimer was mildly elevated at 0.54. CTA PE study was obtained due to shortness of breath, pleuritic pain, negative for PE, does show mucous plugging in left lower lobe and mild emphysema. Discussed findings with patient. Discussed treatment with antibiotics, inhaler, Mucinex, tessalon perles. Patient is in agreement with this plan. He was ambulated throughout the ED and no ambulatory hypoxia was noted. He denied feeling significantly short of breath. He feels comfortable with discharge at this time. Discussed strict return precautions. He voiced understanding. Discharged in stable condition. Medical Records Attestation: I reviewed the patient's medical records. Lab Data Attestation: I reviewed the patient's lab results. 08/19/23 22:03 08/19/23 22:03 Labs: Lab Results 08/19/23 08/19/23 Range/Units 22:02 22:03 WBC 6.5 (4.5-10.0) K/mm3 RBC 4.75 (4.6-6.20) M/mm3 Hgb 14.2 (14.0-18.0) g/dL Hct 44.6 (42.0-52.0) % MCV 93.9 (80-100) fl MCH 29.9 (26-34) pg MCHC 31.8 L (32-36) g/dl RDW 13.2 (11.5-14.5) % Plt Count 275 (150-375) k/mm3 MPV 9.4 (7.4-10.4) fl Immature Gran % (Auto) 0.3 (0-0.5) % Neut % (Auto) 62.2 (45.5-73.1) % Lymph % (Auto) 29.3 (18.3-44.2) % Menard % (Auto) 6.3 (2.6-8.5) % Eos % (Auto) 1.1 (0-4.4) % Baso % (Auto) 0.8 (0.2-1.2) % Lymph # (Auto) 1.91 (0.9-3.2) K/mm3 Menard # (Auto) 0.4 (0.1-0.6) K/mm3 Eos # (Auto) 0.1 (0-0.3) K/mm3 Baso # (Auto) 0.1 (0.0-0.1) K/mm3 Abs Immat Gran (auto) 0.02 (0.00-0.031) K/mm3 Absolute Neuts (auto) 4.1 (1.3-6.7) K/mm3 Absolute Nucleated RBC 0.000 (0.0-0.012) K/mm3 Nucleated RBC % 0.0 (0.0-0.2) % PT 14.4 (11.1-14.7) Seconds INR 1.1 APTT 31.5 (22.3-36.8) Seconds D-Dimer 0.54 H (<0.48) ug/mL Sodium 140 (137-145) mmol/L Potassium 4.5 (3.4-5.0) mmol/L Chloride 106 (98-107) mmol/L Carbon Dioxide 32 H (22-30) mmol/L Anion Gap 2 L (4-12) mmol/L BUN 24 H D (9-20) mg/dL Creatinine 1.30 (0.7-1.3) mg/dL Estim Creat Clear Calc 40 ml/min Estimated GFR > 60 (59 - ) Glucose 99 (65-110) mg/dL Calcium 9.3 (8.4-10.2) mg/dL Magnesium 2.1 (1.6-2.3) mg/dL Total Bilirubin 0.6 (0.2-1.3) mg/dL AST 19 (17-59) U/L ALT 10 (6-50) U/L Alkaline Phosphatase 77 (38-126) U/L Troponin I < 0.012 (0.000-0.034) ng/mL NT-Pro-B Natriuret Pep 109 H (19.9-100) pg/mL Total Protein 8.0 (6.3-8.2) g/dL Albumin 4.5 (3.5-5.1) g/dL Influenza A (RT-PCR) Negative (Negative) Influenza B (RT-PCR) Negative (Negative) RSV (RT-PCR) Negative (Negative) SARS-CoV-2 RNA (RT-PCR) Negative (Negative) Imaging Data Attestation: I personally reviewed and interpreted this imaging study as follows: Radiologist's impression: ITS Impressions Chest X-Ray 08/19/23 22:26 IMPRESSION: 1. No acute cardiopulmonary disease. Chest CTA 08/19/23 23:36 IMPRESSION: 1. No pulmonary embolus. 2. Mucous plugging in left lung lower lobe. 3. Mild emphysema. ECG Data EKG #1: Attestation: I personally reviewed and interpreted this ECG as follows: ECG completion date: 08/19/23 ECG completion time: 22:13 EKG Interpretation: normal rate (77), sinus rhythm and non-specific ST changes Discharge Plan Discharge Clinical Impression: Mucus plugging of bronchi Upper respiratory infection Qualifiers: URI type: unspecified URI Qualified Code(s): J06.9 - Acute upper respiratory infection, unspecified Cough Qualifiers: Cough type: acute Qualified Code(s): R05.1 - Acute cough Patient Disposition: Home, Self-Care Condition: Stable Instructions: Antibiotic Form, Upper Respiratory Infection (ED), Viral Syndrome (ED), Cold Symptoms (ED) Additional Instructions: Your workup here was reassuring. Stay well hydrated. Take antibiotics as prescribed. Take Mucinex twice daily as needed to help cough out mucus. Take Tessalon Perles as needed for cough. You may also use over the counter robitussin or delsym for cough. Use inhaler as needed and prescribed for shortness of breath. Follow-up with primary care doctor for further evaluation. Return to the ED if you experience worsening or severe shortness breath, chest pain, unable to keep down food or drink, coughing blood, or any other symptoms of concern. Prescriptions: New albuterol sulfate 90 mcg/actuation HFA aerosol inhaler 2 puff inhalation QID PRN (Reason: shortness of breath or wheezing) Qty: 6.7 0RF azithromycin [Zithromax Z-Diego] 250 mg tablet See Rx Instructions .ROUTE .COMPLEX Qty: 6 0RF Rx Instructions: For 250 mg dose pack: take 500 mg today (day 1), then 250 mg for 4 days (days 2-5) benzonatate 200 mg capsule 200 mg PO TID PRN (Reason: cough) Qty: 20 0RF guaifenesin [Mucinex] 1,200 mg tablet extended release 12hr 1,200 mg PO BID PRN (Reason: congestion) Qty: 20 0RF No Action aspirin [Children's Aspirin] 81 mg Tablet,Chewable 81 mg PO DAILY@0800 Qty: 30 0RF atorvastatin 40 mg Tablet 40 mg PO DAILY Qty: 30 0RF clopidogrel 75 mg Tablet 75 mg PO QAM Qty: 30 0RF cephalexin 500 mg capsule 500 mg PO Q12H 7 Days Qty: 14 0RF phenazopyridine [Pyridium] 100 mg tablet 100 mg PO TID PRN (Reason: pain) Qty: 6 0RF erythromycin 5 mg/gram (0.5 %) ointment 1 applic LEFT EYE Q4H Qty: 3.5 0RF carboxymethylcellulose sodium [Refresh Tears] 0.5 % drops 1 drp EACH EYE QID Qty: 15 0RF Follow-up/Referrals: PHYSICIAN,ASSISTANT DISTRIBUTION MANAGER [Primary Care Provider] - Abilio Hendrix MD [Physician] - (PRIMARY CARE) Time of Disposition: 00:54
--- NOTE | 2023-08-19 23:54 | PC.NURSE ---
Took pt on a walk around the nurses station with the walking pulse ox. Pt states he felt okay the entire time and walked pretty well. Towards the end of the walk, his pulse ox did go down to 94 with a pulse around 88 the entire time. PA notified.
[2023-08-20 00:05] VITALS: PULSE 77; RESP 22; O2SAT 98
[2023-08-20 00:18] VITALS: PULSE 73; RESP 21; O2SAT 99
[2023-08-20 00:30] VITALS: PULSE 75; RESP 19; O2SAT 100
[2023-08-20 00:38] VITALS: BP 118/65; PULSE 84; RESP 14; O2SAT 98
[2023-08-20] MEDS: guaiFENesin 12 HR 600 MG TABCR 1200 MG PO (00:38)
[2023-08-20 01:01] VITALS: PULSE 74; RESP 20; O2SAT 100
[2023-08-20 01:06] VITALS: BP 186/86; PULSE 68; RESP 16; O2SAT 98
== END 2023-08-20 01:07 | disposition home or self-care (01) ==
PROVIDERS: Emergency Provider Physician Assistant
DX: J98.09 Other diseases of bronchus, not elsewhere classified (principal); J06.9 Acute upper respiratory infection, unspecified; Z20.822 Contact with and (suspected) exposure to COVID-19; I50.9 Heart failure, unspecified; M19.90 Unspecified osteoarthritis, unspecified site; Z59.00 Homelessness unspecified; Z86.2 Personal history of diseases of the blood and blood-forming organs and certain disorders involving the immune mechanism; Z96.652 Presence of left artificial knee joint; J43.9 Emphysema, unspecified; Z79.82 Long term (current) use of aspirin
CPT/HCPCS: 36415; 71046; 71275; 80053; 83735; 83880; 84484; 85025; 85380; 85610; 85730; 87637; 93005; 99284; A9270; Q9967

== ENCOUNTER 2023-09-08 22:36 | Emergency (ER) | payer MEDICARE, MEDICAID, SELFPAY ==
[2023-09-08 22:43] VITALS: BP 166/84; PULSE 70; RESP 16; TEMP 36.7; O2SAT 100
--- NOTE | 2023-09-09 00:42 | ED.EAR ---
HPI - Ear Problem General Chief complaint: Ear Stated complaint: I can't hear Time Seen by Provider: 09/09/23 00:21 Source: patient Mode of arrival: ambulatory Limitations: no limitations History of Present Illness HPI Narrative: 72-year-old male presenting with bilateral difficulty hearing out of both ears. Started about 2 weeks ago. Nothing specifically seem to have caused it. No medication changes. No tinnitus. No headache. Related Data Allergies Allergy/AdvReac Type Severity Reaction Status Date / Time No Known Allergies Allergy Verified 09/08/23 22:49 Review of Systems Review of Systems: All systems reviewed & are unremarkable except as noted in HPI and below PMFSH Past Medical History Medical History Arthritis History of anxiety History of CHF (congestive heart failure) History of depression Normocytic anemia Tobacco abuse Surgical History Surgical History History of left knee replacement Social History Social History Smoking status: Current every day smoker Alcohol intake: unknown Substance use type: crack/cocaine Gender identity (if verbalized by the patient): Male Spiritual care concerns: No Exam Narrative: Constitutional: Generally well appearing, no acute distress Head: Atraumatic, no deformities. Eyes: Pupils equal, round, and reactive to light. Neck: Supple, no tracheal deviation, no JVD. ENMT: Mucous membranes moist . Bilateral cerumen impaction heavily. Otherwise normal ears. Cardiovascular: S1, S2 auscultated. No murmurs, rubs, or gallops. No S3/S4. Normal Distal pulses. No peripheral edema. Respiratory: Lung sounds equal. No wheezes, rales, or rhonchi. Gastrointestinal: Abdomen was soft, nondistended Musculoskeletal: Normal muscle tone and bulk. No obvious deformities over extremities. Skin: No rashes. Neurological: Strength 5/5 in extremities. Distal sensation intact. Mental Status: Awake, alert and oriented x3. Follows commands Course Vital Signs Vital signs: Vital Signs Temperature 36.7 C 09/08/23 22:43 Pulse Rate 70 09/08/23 22:43 Respiratory Rate 16 09/08/23 22:43 Blood Pressure 166/84 H 09/08/23 22:43 Pulse Oximetry 100 09/08/23 22:43 Oxygen Delivery Room Air 09/08/23 22:43 Temperature 36.7 C 09/08/23 22:43 Pulse Rate 70 09/08/23 22:43 Respiratory Rate 16 09/08/23 22:43 Blood Pressure 166/84 H 09/08/23 22:43 Pulse Oximetry 100 09/08/23 22:43 Oxygen Delivery Room Air 09/08/23 22:43 Procedures Ear Wax Removal Both Ears: Ear Wax Removal Date: 09/09/23 Ear Wax Removal Time: 00:43 Cerumenolytic Used: Cerumenex Results: Re-examined: some cerumen remains TM Examination: TM(s) intact, normal appearance Ear Canal Exam: atraumatic Patient Tolerated Procedure: well Complications: no problems Medical Decision Making MDM Narrative Medical decision making narrative: 72-year-old male presenting with bilateral difficulty hearing for 2 weeks. No pain. On exam He has significant cerumen impaction. Attempting disimpaction. patient did not tolerate very much the liquid disimpaction and was able to get some out with a spoon. Can visualize partially his TMs they are unremarkable. Patient does not want any further care for it. will give prescription for Debrox. Pt feeling improved and would like to go home at this point. Return precautions were given to the patient include any new or worsening symptoms or development of and not limited to any chest pain, shortness of breath, lightheadedness, abdominal pain, fevers, chills. Patient understands and agrees. They are to follow-up with her PCP. All questions were answered. I reviewed the patient's vital signs, history, allergies, and labs and imaging wo
--- NOTE | 2023-09-09 00:47 | PC.NURSE ---
this rn attempted to do an ear wash on this pt who verbalized I cant take this. you are going to have to do something different. ERP Dr Kenyon notified and provided with curette at this time.
[2023-09-09 01:16] VITALS: PULSE 68; RESP 16; O2SAT 98
== END 2023-09-09 01:17 | disposition home or self-care (01) ==
LOC: ANHED 09-09 00:59
PROVIDERS: Emergency Provider Emergency Medicine
DX: H61.23 Impacted cerumen, bilateral (principal); I50.9 Heart failure, unspecified; M19.90 Unspecified osteoarthritis, unspecified site; F17.200 Nicotine dependence, unspecified, uncomplicated; Z86.2 Personal history of diseases of the blood and blood-forming organs and certain disorders involving the immune mechanism; Z79.82 Long term (current) use of aspirin; Z96.653 Presence of artificial knee joint, bilateral
CPT/HCPCS: 69210; 99283

== ENCOUNTER 2023-11-30 20:43 | Observation (INO) | payer MEDICARE, MEDICAID, SELFPAY ==
--- NOTE | ~2023-11-30 | MR_ITS ---
EXAMINATION: MR brain/brain stem wo con DATE: 12/03/2023 13:59 INDICATION: Cerebrovascular accident. TECHNIQUE: Magnetic resonance imaging (MRI) of the brain and brainstem was performed without intraven ous contrast. COMPARISON: Head CT 12/01/2023 FINDINGS: There is an old infarct involving the left frontal and parietal lobes. There are scattered areas of nonspecific increased T2-weighted signal intensity in the cerebral white matter and ang. Th ere is an old infarct in right parietal lobe. There is a small old infarct in left cerebellum. There are old infarcts in the left basal ganglia and left thalamus. There is no intracranial hemorrhage, ac marina infarction, or abnormal intracranial mass lesion. The ventricles are normal in size. There is cav um septum callosum and vergae. There is mild mucosal thickening in the ethmoid sinuses. There are tra ce bilateral mastoid effusions. There are likely changes of left ocular lens replacement surgery. IMPRESSION: 1. Multiple old infarcts in the brain. 2. Moderate nonspecific cerebral white matter disease and pontine disease, which likely represents ch ronic small vessel ischemic disease. Reviewed, dictated and finalized at location A. IMPRESSION: 1. Multiple old infarcts in the brain. 2. Moderate nonspecific cerebral white matter disease and pontine disease, whic h likely represents chronic small vessel ischemic disease.
--- NOTE | ~2023-11-30 | CT_ITS ---
EXAMINATION: CT brain wo con DATE: 11/30/2023 21:57 INDICATION: Right-sided facial droop TECHNIQUE: Computed tomography (CT) of the head was performed without intravenous contrast. Sagittal and coronal reconstructions were performed. The mA was adjusted according to patient size. Iterative reconstruction technique was employed. The dose-length product was 605.33 mGy-cm. COMPARISON: head CT dated 09/10/2021 FINDINGS: Again seen are multiple small regions of encephalomalacia in the left frontal and parietal lobes cyst with chronic infarcts. Additional unchanged small old infarct in the right parietal lobe and in the left basal ganglia. There is moderate scattered white matter hypoattenuation consistent with chronic small vessel ischemic disease. No acute intracranial hemorrhage, acute infarction or abnormal extra axial fluid collection. Ventricles are normal and symmetric with normal variant cavum septum pellucid um et vergae. No mass/mass effect. Changes of left intraocular lens replacement. The orbits, paranasa l sinuses and mastoid air cells are normal. IMPRESSION: 1. No acute intracranial process. 2. Stable appearance of multiple old infarcts including the left basal ganglia, right parietal lobe a nd multiple in the left frontal and parietal lobes. 2. Moderate scattered white matter hypoattenuation consistent with chronic small vessel ischemic dise ase. Reviewed, dictated and finalized at location A. IMPRESSION: 1. No acute intracranial process. 2. Stable appearance of multiple old infarcts including the left basal ganglia, right parietal lobe and multiple in the left frontal and parietal lobes. 2. Moderate scattered white matter hypoattenuation consistent with chronic smal l vessel ischemic disease.
--- NOTE | ~2023-11-30 | XR_ITS ---
Clinical Indication: Right-sided facial droop, cold PA and lateral views of the chest: Comparison: 08/19/2023 Findings: The lungs are clear, without evidence of focal consolidation or pleural effusion. Cardiome diastinal silhouette is within normal limits. Bones and soft tissues are unremarkable, aside from deg enerative changes in the thoracic spine. Impression: Clear lungs. Reviewed, dictated and finalized at location M. Impression: Clear lungs.
--- NOTE | ~2023-11-30 | XR_ITS ---
EXAMINATION: XR barium swallow modified DATE: 12/01/2023 14:23 INDICATION: Cough with meals. TECHNIQUE: The patient was given barium-containing material of multiple consistencies to swallow by t hugo speech pathologist while I performed fluoroscopy. Fluoroscopy exposure time was 1.4 minutes. The n umber of fluoroscopy images saved to the PACS was 1. Dose-area product was 1.043 Gy-cm^2. FINDINGS: There is trace shallow laryngeal penetration with pudding and cracker. IMPRESSION: 1. Trace shallow laryngeal penetration with pudding and cracker. No aspiration. 2. Please refer to the speech therapy report for recommendations. Reviewed, dictated and finalized at location A.
--- NOTE | ~2023-11-30 | CT_ITS ---
CT ANGIOGRAM NECK AND HEAD History: Stroke symptoms. Technique: Axial noncontrast imaging of the brain was performed. Serial spiral axial images through t he head and neck were then obtained during arterial phase IV injection of 100 cc of Omnipaque 350. 3- D postprocessing and MIP images were then reconstructed on the remote workstation. Dose reduction nikolay hnique was used on this scan by utilizing automated exposure control and iterative reconstruction nikolay hnique. The dose-length product (DLP) was 1560.50 mGy-cm. COMPARISON: 11/30/2023 CTA neck findings: Bilateral vertebral arteries are patent. Bilateral common carotid, internal carot id, and external carotid arteries are patent. No large vessel occlusion. No stenosis, despite calcifi ed plaques at the proximal internal carotid arteries bilaterally. No aneurysm. The proximal right int ernal carotid artery demonstrates 0% stenosis relative to the normal distal artery lumen diameter. Th e proximal left internal carotid artery demonstrates 0% stenosis relative to the normal distal artery lumen diameter. CTA head findings: Distal vertebral arteries, basilar artery, and posterior cerebral arteries are pat ent. Distal internal carotid arteries, middle cerebral arteries, and anterior cerebral arteries are p atent. No large vessel occlusion or stenosis. No aneurysm. Axial noncontrast imaging of the brain is stable from prior exam. Chronic infarcts in the left cerebr al hemisphere are again present. Probable chronic lacunar infarcts in the basal ganglia are unchanged . No acute intracranial hemorrhage or mass lesion evident. No mass effect or midline shift evident. N o definite acute infarct seen. Ventricles and subarachnoid spaces are stable. Paranasal sinuses are c lear. Calvarium intact. Impression: No significant or acute abnormality seen. Stable chronic left MCA distribution infarcts. Reviewed, dictated and finalized at location . Impression: No significant or acute abnormality seen. Stable chronic left MCA distribution infarcts.
[2023-11-30 20:45] VITALS: BP 125/52; PULSE 62; RESP 14; O2SAT 100
[2023-11-30 20:46] VITALS: BP 142/60; PULSE 77; RESP 19; TEMP 36.5; O2SAT 100
[2023-12-01] VITALS (11 sets, daily range): BP systolic 127–151; BP diastolic 60–83; PULSE 57–77; RESP 14–20; TEMP 36.4–36.8; O2SAT 99–100; BMI 23.4
--- NOTE | 2023-12-01 01:07 | ECG_ITS ---
Test Date: 2023-12-01 01:59:28 Measurements Intervals [place] Rate: 58 P: 57 RI: 226 QRS: 59 QRSD: 93 T: 73 QT: 432 QTc: 426 Interpretive Statements SINUS BRADYCARDIA WITH FIRST DEGREE AV BLOCK OTHERWISE NORMAL ECG No previous ECG available for comparison Electronically Signed On 12-02-2023 10:50:06 CDT by Alexi Lovelace M.D.
--- NOTE | 2023-12-01 01:07 | ED.NEUROSD ---
HPI - Neuro Symptoms/Deficit General Chief Complaint: Neuro Symptoms/Deficit Stated Complaint: cva symptoms Time Seen by Provider: 12/01/23 00:06 Source: patient Limitations: other (Expressive aphasia) History of Present Illness HPI Narrative: Patient is a 72-year-old male presents to the emergency department complaining of a possible cold and a stroke. Patient is having difficulty expressing himself and primarily answers yes or no questions a which I was able to obtain a history of I guess or no questions. Patient woke up this morning unsure as to what time approximately 24 hours ago with difficulty expressing himself, no history of this in the past, denies history of strokes, denies use of blood thinners, denies numbness or weakness or difficulty swallowing or vision changes. Patient denies recent injuries, chest pain, difficulty breathing, abdominal pain, melena, hematochezia, urinary discomfort, confusion, headache, neck pain. Patient also notes that he was drooling this morning when it started. Patient also states that he has had a cold for the past few days but denies cough or congestion or sore throat or runny nose. Related Data Home Medications Medication Instructions Recorded Confirmed naproxen 500 mg tablet 500 mg PO BID PRN Pain (Scale 12/01/23 12/01/23 Score 1-3) Allergies Allergy/AdvReac Type Severity Reaction Status Date / Time No Known Allergies Allergy Verified 09/08/23 22:49 Review of Systems Review of Systems: A 10 system review of systems was completed on the patient and is negative except for what is stated in the HPI. Nursing and ancillary documentation was reviewed. [facility] Past Medical History Medical History Arthritis History of anxiety History of CHF (congestive heart failure) History of depression Normocytic anemia Tobacco abuse Surgical History Surgical History History of left knee replacement Social History Social History Smoking packs per day: 1 Smoking cigarettes per day: 20.0 Smoking status: Current every day smoker Alcohol intake: never Substance use: current Substance use type: crack/cocaine Last use: POSITIVE LABS ON ADMISSION Do You Feel Safe in your Home?: Yes Lack of Transportation: YES Lack of Food: Sometimes True Current Housing: I Do Not Have Housing Concerned About Future Housing: YES Difficulty Paying Gas/Electric Bills: YES Difficulty Paying for Meds: YES Currently Unemployed: YES Education: Don't Know Difficulty w/ Childcare or Family Care: No Gender identity (if verbalized by the patient): Male Spiritual care concerns: No Comments At time of signature, I have reviewed and agree with nursing past medical, surgical, social and family history unless otherwise noted. Please see the nursing chart for further information. There is no relevant family history pertinent to the presenting complaint. Exam Narrative: CONST: No acute distress. Well nourished. HENMT: Head is normocephalic and atraumatic. Tacky mucous membranes. No posterior oropharynx erythema. No nasal congestion. EYES: No scleral icterus. No conjunctival injection or pallor. PERRL. Extraocular motions intact. No nystagmus. NECK: No meningeal signs. No carotid bruits on auscultation bilaterally. RESP: Normal respiratory effort. CTAB. CARDIO: Regular rate. Regular rhythm. 2+ DP and radial pulses bilaterally. GI: Nondistended. No tenderness to palpation. Soft. : No CVA tenderness to palpation. SKIN: No rashes or lesions noted on exposed skin. NEURO: No drift with all 4 extremities. Motor strength is symmetric throughout all 4 extremities. Sensation intact to light touch throughout all 4 extremities. No facial asymmetry. Visual de la cruz intact to confrontation. Expressive aphasia is p
[2023-12-01 01:50] LABS: Add Urine Microscopic? YES; Appearance Urine Clear (Clear); Bilirubin Urine Negative (Negative); Blood Urine Negative (Negative); Color Urine Dark Yellow (Yellow); Glucose Urine UA Negative (Negative); Ketones Urine Trace mg/dL (Negative); Leukocyte Esterase Ur Negative LEU/UL (Negative); Nitrate Urine Negative (Negative); Protein Urine Negative (Negative); Specific Grav Ur 1.037 (1.001-1.035); pH Urine 5.5 (5.0-9.0)
[2023-12-01] MEDS: SODIUM CHLORIDE 0.9% IV 1,000 ML 999 ML IV CONT (01:55)
[2023-12-01 01:58] LABS: Basophils Absolute Auto 0.1 K/mm3 (0.0-0.1); Basophils Percent Auto 0.8 % (0.2-1.2); Eosinophils Absolute Auto 0.1 K/mm3 (0-0.3); Eosinophils Percent Auto 1.4 % (0-4.4); Hematocrit 40.6 % (42.0-52.0); Hemoglobin 13.3 g/dL (14.0-18.0); Immature Granulocyte Absolute 0.01 K/mm3 (0.00-0.031); Immature Granulocyte Percent A 0.2 % (0-0.5); Lymphocytes Absolute Auto 2.12 K/mm3 (0.9-3.2); Lymphocytes Percent Auto 32.1 % (18.3-44.2); Mean Corpuscular HGB Conc 32.8 g/dl (32-36); Mean Corpuscular Hemoglobin 31.3 pg (26-34); Mean Corpuscular Volume 95.5 fl (80-100); Mean Platelet Volume 10.4 fl (7.4-10.4); Monocytes Absolute Auto 0.5 K/mm3 (0.1-0.6); Monocytes Percent Auto 7.3 % (2.6-8.5); Neutrophils Absolute Auto 3.9 K/mm3 (1.3-6.7); Neutrophils Percent Auto 58.2 % (45.5-73.1); Platelet Count Result 209 k/mm3 (150-375); Red Blood Count 4.25 M/mm3 (4.6-6.20); Red Cell Distribution Width 13.2 % (11.5-14.5); White Blood Count 6.6 K/mm3 (4.5-10.0)
[2023-12-01 02:01] LABS: Ethanol < 10 mg/dL (<10); INR 1.1; Partial Thromboplastin Time 30.6 Seconds (22.3-36.8); Prothrombin Time 14.9 Seconds (11.1-14.7)
[2023-12-01 02:09] LABS: Amphetamine Screen Urine Negative (Negative); Barbiturate Screen Urine Negative (Negative); Benzodiazepines Screen Urine Negative (Negative); Cannabinoid Screen Urine Negative (Negative); Cocaine Screen Urine Positive (Negative); Methadone Screen Urine Negative (Negative); Opiate Screen Urine Negative (Negative); Phencyclidine Screen Urine Negative (Negative)
[2023-12-01 02:15] LABS: Alanine Aminotransferase 13 U/L (6-50); Albumin Level 3.9 g/dL (3.5-5.1); Alkaline Phosphatase 73 U/L (38-126); Anion Gap 9 mmol/L (4-12); Aspartate Amino Transferase 28 U/L (17-59); Bilirubin,Total 0.7 mg/dL (0.2-1.3); Blood Urea Nitrogen 27 mg/dL (9-20); Calcium 8.4 mg/dL (8.4-10.2); Carbon Dioxide 25 mmol/L (22-30); Chloride 105 mmol/L (98-107); Estimated CRCL calculation 49 ml/min; Estimated Glomerular Filt Rate > 60; Glucose 84 mg/dL (65-110); Magnesium 1.9 mg/dL (1.6-2.3); Potassium 4.5 mmol/L (3.4-5.0); Sodium 139 mmol/L (137-145)
[2023-12-01 02:18] LABS: Troponin I 0.021 ng/mL (0.000-0.034)
--- NOTE | 2023-12-01 05:25 | ADMGEN ---
This patient, Benito Cisse, was admitted to Medical Room 257-01. Patient/family oriented to hospital policies and general routines including ID bracelet, bed and alarms, visiting hours, pain management, procedures, bathroom and other care routines, personal items, smoking policy, room service/diet, and visiting hours. Information on how to activate the Rapid Response Team has been discussed. Patient/Family are encouraged to report perceived risks to care and to ask questions if they do not understand what they are told or what they should do.
--- NOTE | 2023-12-01 05:38 | PC.NURSE ---
PT IS A POOR HISTORIAN. UNABLE TO GIVE ME ANY ACCURATE HEALTH INFORMATION. PT ALSO STATES HE IS HOMELESS
[2023-12-01 08:31] LABS: Glucose Point of Care 100 mg/dl (65-105)
--- NOTE | 2023-12-01 11:33 | PM.IMPN ---
Subjective Date/time seen: 12/01/23 11:33 Interval history: Objective Data Vital Signs Vital Signs: Vital Signs - 24 hr 11/30/23 20:46 11/30/23 20:45 12/01/23 00:04 Temperature 97.7 F Pulse Rate 77 62 77 Respiratory Rate 19 14 19 Blood Pressure 142/60 H 125/52 L 142/60 H Pulse Oximetry 100 100 100 Oxygen Delivery Room Air 12/01/23 03:45 12/01/23 03:46 12/01/23 04:00 Temperature Pulse Rate 68 66 Respiratory Rate 14 Blood Pressure 151/81 H Pulse Oximetry 99 99 Oxygen Delivery 12/01/23 05:24 12/01/23 08:00 12/01/23 08:00 Temperature 98.3 F Pulse Rate 63 57 L Respiratory Rate 17 Blood Pressure 148/83 H Pulse Oximetry 100 Oxygen Delivery Room Air Intake/Output Intake/Output: Intake & Output 11/28/23 11/29/23 11/30/23 12/01/23 23:59 23:59 23:59 23:59 Intake Total 1000 Balance 1000 Meds/Results Radiology Results: ITS Impressions Head CT 11/30/23 22:05 IMPRESSION: 1. No acute intracranial process. 2. Stable appearance of multiple old infarcts including the left basal ganglia, right parietal lobe and multiple in the left frontal and parietal lobes. 2. Moderate scattered white matter hypoattenuation consistent with chronic small vessel ischemic disease. Chest X-Ray 12/01/23 05:54 Impression: Clear lungs. Head/Neck CTA 12/01/23 06:02 Impression: No significant or acute abnormality seen. Stable chronic left MCA distribution infarcts. Labs Labs: Laboratory Results - last 24 hr 12/01/23 12/01/23 01:41 08:28 WBC 6.6 RBC 4.25 L Hgb 13.3 L Hct 40.6 L MCV 95.5 MCH 31.3 MCHC 32.8 RDW 13.2 Plt Count 209 MPV 10.4 Immature Gran % (Auto) 0.2 Neut % (Auto) 58.2 Lymph % (Auto) 32.1 [place] % (Auto) 7.3 Eos % (Auto) 1.4 Baso % (Auto) 0.8 Lymph # (Auto) 2.12 [place] # (Auto) 0.5 Eos # (Auto) 0.1 Baso # (Auto) 0.1 Abs Immat Gran (auto) 0.01 Absolute Neuts (auto) 3.9 Absolute Nucleated RBC 0.000 Nucleated RBC % 0.0 PT 14.9 H INR 1.1 APTT 30.6 Sodium 139 Potassium 4.5 Chloride 105 Carbon Dioxide 25 Anion Gap 9 BUN 27 H Creatinine 1.10 Estim Creat Clear Calc 49 Estimated GFR > 60 Glucose 84 POC Capillary Glucose 100 Lactic Acid 1.0 Calcium 8.4 Magnesium 1.9 Total Bilirubin 0.7 AST 28 ALT 13 Alkaline Phosphatase 73 Troponin I 0.021 Total Protein 7.0 Albumin 3.9 Urine Color Dark yellow Urine Appearance Clear Urine pH 5.5 Ur Specific [place] 1.037 H Urine Protein Negative Urine Glucose (UA) Negative Urine Ketones Trace H Ur Blood (Man) Negative Urine Nitrate Negative Urine Bilirubin Negative Urine Urobilinogen 1.0 Leukocyte Esterase Rfl Negative Urine Opiates Screen Negative Urine Methadone Screen Negative Ur Barbiturates Screen Negative Ur Phencyclidine Scrn Negative Ur Amphetamine Screen Negative U Benzodiazepines Scrn Negative Urine Cocaine Screen Positive A U Cannabinoids Screen Negative Ethyl Alcohol < 10 Blood Type A Positive Antibody Screen Negative
--- NOTE | 2023-12-01 12:01 | PM.IMHP ---
H&P: HPI History of Present Illness Date/Time: 12/01/23 12:01 Chief Complaint: Drooling Narrative: Patient is a 72 year old man hx CVA, who presented to the hospital for concern for stroke. Patient reports he came to the hospital for drooling. He presented to the ED 12/01/23 In the ER he did not meet criteria for TPA. Head CT was normal below. Labs showed a WBC 6.6, H&H 13.3/40.6, Plt 209, INR 1.1/30.6, UA specific gravity elevated 1.037, otherwise trace ketones. UDS positive for cocaine ED Imaging: Head/Neck CTA CTA neck findings: Bilateral vertebral arteries are patent. Bilateral common carotid, internal carotid, and external carotid arteries are patent. No large vessel occlusion. No stenosis, despite calcified plaques at the proximal internal carotid arteries bilaterally. No aneurysm. The proximal right internal carotid artery demonstrates 0% stenosis relative to the normal distal artery lumen diameter. The proximal left internal carotid artery demonstrates 0% stenosis relative to the normal distal artery lumen diameter. CTA head findings: Distal vertebral arteries, basilar artery, and posterior cerebral arteries are patent. Distal internal carotid arteries, middle cerebral arteries, and anterior cerebral arteries are patent. No large vessel occlusion or stenosis. No aneurysm. Axial noncontrast imaging of the brain is stable from prior exam. Chronic infarcts in the left cerebral hemisphere are again present. Probable chronic lacunar infarcts in the basal ganglia are unchanged. No acute intracranial hemorrhage or mass lesion evident. No mass effect or midline shift evident. No definite acute infarct seen. Ventricles and subarachnoid spaces are stable. Paranasal sinuses are clear. Calvarium intact.Impression: No significant or acute abnormality seen. Stable chronic left MCA distribution infarcts. This morning he was minimally participatory, refused to open his eyes for an exam and refused to get out of bed because he was tired. This afternoon he wasnted to leave AMA, but was unable to demonstrate he had capacity to leave. Able to reach his daughter Mala at [phone] and had a video call with her father with her. She reported this is not his baseline, having significant new aphasia per family. They were both tearful during the call. Daughter asked him to stay in the hospital for treatment, and he agreed, but immediately after hanging up with her, he said he was leaving. The patient does not have capacity to make medical decisions or to leave AMA. Asked patient about his plan for discharge and he was able to say [address] bus but was not able to tell me where he was going, or to communicate either verbally or in writing in words or by nodding where he was going to go after that. Unable to demonstrate that he understood the consequences of leaving the hospital or that he could carry out a plan. Discussed the criteria for leaving with him. Previously patient was homeless, but living with someone right now. Daughter expressed that they had asked him to live with them previously but he declined. Also spoke to patient's emergency contact, former neighbor, who said he had taken him to the hospital when he had his last stroke. Of note, he had found him wandering around at the bus stop, didn't know where he was going. [facility] Past Medical History Medical History Arthritis History of anxiety History of CHF (congestive heart failure) History of depression Normocytic anemia Tobacco abuse Surgical History Surgical History History of left knee replacement Social History Social History Smoking packs per day: 1 Smoking cigarettes per day: 20.0 Smoking status: Current every day smoker Alcohol intake: never Substance use: current Substance use type: crack/cocaine Last use: POSITIVE
--- NOTE | 2023-12-01 13:54 | WPDNEURCNPN ---
Assessment and Plan Assessment and plan (1) Cerebrovascular accident: Qualifiers: CVA mechanism: unspecified Qualified Code(s): I63.9 - Cerebral infarction, unspecified Code(s): I63.9 - Cerebral infarction, unspecified Status: Acute Assessment and Plan: Patient has predominantly a dysarthria since he was able to understand and talk and a reverse appropriate responses and follow 1 to two-step commands. Also able to name objects. CT scan of the brain shows old left CVA. CT angiogram of the head and neck did not show any large vessel occlusion. He will require an MRI of the brain. In addition antiplatelets and statins be in order for the point of view prevent any further stroke. Plan Speech therapy has been appropriately ordered. Physical therapy evaluation is also in progress. Patient does not he has any difficulty swallowing. I also do not see any significant tongue deviation. His residual right arm weakness from previous stroke in 2021. I have taken liberty to add Plavix 75 mg a day and reduce the dose of aspirin to 81 mg a day. We may continue with the atorvastatin 40 mg a day for now. Holter an MRI of the brain. Thank you very much for allowing to participate in the care of this patient. Consult date: 12/01/23 Time Seen: 12:45 Reason for consult: New onset stroke with speech disturbance HPI: Benito Cisse is a 72 year old male with history of left CVA with residual right arm weakness presented to the hospital with a new onset of difficulty speech. He is able to understand and also talk but he is unclear. Denies any difficulty swallowing. No diplopia or loss of vision. No extension of the weakness in the arms or legs. CT scan of brain shows the old left CVA. 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 Patient also said to be somewhat hard of issues to able to concentrate and pay attention to the given instructions and even follow them most of the time. patient denies any headache. No chest pain palpitation or shortness of breath. Review of Systems Review of Systems: All systems reviewed & are unremarkable except as noted in HPI and below PMFSH Past Medical History Medical History Arthritis History of anxiety History of CHF (congestive heart failure) History of depression Normocytic anemia Tobacco abuse Surgical History Surgical History History of left knee replacement Social History Social History Smoking packs per day: 1 Smoking cigarettes per day: 20.0 Smoking status: Current every day smoker Alcohol intake: never Substance use: current Substance use type: crack/cocaine Last use: POSITIVE LABS ON ADMISSION Do You Feel Safe in your Home?: Yes Lack of Transportation: YES Lack of Food: Sometimes True Current Housing: I Do Not Have Housing Concerned About Future Housing: YES Difficulty Paying Gas/Electric Bills: YES Difficulty Paying for Meds: YES Currently Unemployed: YES Education: Don't Know Difficulty w/ Childcare or Family Care: No Gender identity (if verbalized by the patient): Male Spiritual care concerns: No Meds Home Medications and Allergies Home Medications Medication Instructions Recorded Confirmed Type naproxen 500 mg tablet 500 mg PO BID PRN Pain (Scale 12/01/23 12/01/23 History Score 1-3) Allergies Allergy/AdvReac Type Severity Reaction Status Date / Time No Known Allergies Allergy Verified 09/08/23 22:49 Vital Signs Vital Signs - 24 hr 11/30/23 20:46 11/30/23 20:45 12/01/23 00:04 Temperature 36.5 C Pulse Rate 77 62 77 Respiratory Rate 19 14 19 Blood Pressure 142/60 H 125/52 L 142/60 H Pulse Oximetry 100 100 100 Oxygen Delivery Room Air Fraction of Inspired Oxygen 12/01/23 03:45
[2023-12-01 15:06] LABS: Cholesterol 104 mg/dL (0-200); HDL Direct 38 mg/dL; Triglycerides 446 mg/dL (<150)
[2023-12-01 15:17] LABS: LDL Cholesterol Direct 48 mg/dL
[2023-12-01 15:36] LABS: Thyroid Stimulating Hormone 0.196 uIU/mL (0.465-4.680)
--- NOTE | 2023-12-01 15:53 | PCOTNOTE ---
Attempted occupational therapy evaluation. Pt. declined to participate at this time. Nursing aware. Following.
[2023-12-01 16:11] LABS: Folic Acid 6.8 ng/mL (2.76->20)
--- NOTE | 2023-12-01 16:19 | PCSTNOTE ---
Please refer to the Modified Barium Swallow Evaluation in the EMR. The patient was seated for a lateral view and presented with 5cc of thin liquid barium via a spoon, pudding consistency barium via a spoon, mixed liquid/solid consistency spoon, a cracker coated with barium pudding via spoon, and an uncontrolled thin liquid barium bolus. This was presented via a straw & cup. Oral preparatory and oral phase symptoms: none. Pharyngeal phase symptoms: brief pooling at the level of the pyriform sinuses on initial 5cc trials of thin liquids (swallow delay <2 seconds); & flash/quickly ejected shallow laryngeal penetration with pudding. Esophageal stage symptoms: none. No aspiration occurred. Impressions: Overall, the patient presents with functional swallow ability throughout all stages of the swallow; laryngeal penetration was exhibited x1 but cleared without aspiration. Pt's impulsivity warrants frequent supervision during oral intake. ST to follow for Communication evaluation on 12/01.
--- NOTE | 2023-12-01 17:00 | PCSTNOTE ---
Please refer to the Bedside Swallow Evaluation in the EMR. Please note, silent aspiration cannot be ruled out at bedside.
[2023-12-01 17:59] LABS: Vitamin D 25 Hydroxy 23.8 ng/mL
[2023-12-01] MEDS: ATORVASTATIN 40 MG TABLET PO (20:14)
[2023-12-02] VITALS (9 sets, daily range): BP systolic 119–128; BP diastolic 55–71; PULSE 56–75; RESP 17–20; TEMP 36.3–36.8; O2SAT 97–100
--- NOTE | 2023-12-02 08:01 | PM.IMPN ---
Progress Note: A&P Assessment and Plan (1) Aphasia: Code(s): R47.01 - Aphasia Status: Acute Assessment and Plan: Acute change per discussion with patient's daughter Mala, though has a stutter at baseline. Currently having significant difficutly with any communication. Ddx includes new stroke vs stroke recrudescence in the setting of cocaine use -- daily asa, statin --Neurology consulted - MRI WO CON ordered, no neuro coverage today, will need to call [facility] if issues arise --PT/OT eval --Speech MBS, ordered regular diet for now (2) Impaired decision making: Code(s): Z78.9 - Other specified health status Status: Acute Assessment and Plan: Patient does not have capacity to leave the hospital against medical treatment and should have family consent, if consent is needed. Communication is affected by aphasia. Unclear to what extent he understands, appreciates, is able to reason. He has some understanding but ability to assess that he has full understanding of the consequences of leaving. He was able to tell me he would take the #19 bus but his plan to make it home after discharge was unclear after that. Was unable to write, does not have a phone to contact anyone, and unable to tell me his address or whether he has a home or not. He is unable to tell me the risks of leaving. He does consistently voice that he wishes to leave when he is alone (though he said otherwise to his daughter on the phone) The patient DOES NOT have capacity to leave the hospital without family input. Mala, daughter [phone] --Elopement precautions Plan Agitation Haldol 0.5 PO q6 prn, 5mg IM once, prn for extreme agitation Low TSH; free t4 and T3 WNL TSH 0.196, previously low in 2018; no thyroid dysfunction history noted Subjective Date/time seen: 12/02/23 08:01 Interval history: Patient is pleasant and cooperative this morning on exam. He denies any pain, chest pain or SOB. His only complaint is a dry cough since his admission, although his lungs are clear to auscultation and CXR was negative. MRI WO CON ordered for today. Speech evaluated today. TSH low, but T4 and T3 normal. Will await neuro recs after MRI and their return tomorrow. Review of Systems Review of Systems: All systems reviewed & are unremarkable except as noted in HPI and below ROS unobtainable: Yes other Exam Narrative: General - Awake and alert. No acute distress Eyes - PERRLA, EOMI Neck - supple Cardiovascular - RRR no m/r/g, no JVD Lungs: Clear to auscultation, No wheezing, use of accessory muscles, no crackles or wheezes. Skin - Skin warm and dry, no wounds or rashes Abdomen - Normal bowel sounds, abdomen soft and nontender Extremities - No edema, cyanosis or clubbing Musculoskeletal - 5/5 strength, normal range of motion, no swollen or erythematous joints. Neurological ? Alert and oriented x 2 (place and self) Minimal right facial weakness compared to the left Psych: Normal mood and affect, judgment difficult to assess. Objective Data Vital Signs Vital Signs: Vital Signs - 24 hr 12/01/23 14:00 12/01/23 16:00 12/01/23 20:03 Temperature 97.6 F 98.2 F Pulse Rate 69 66 68 Respiratory Rate 20 17 Blood Pressure 127/69 142/73 H Pulse Oximetry 100 100 12/01/23 20:00 12/02/23 00:00 12/02/23 05:32 Temperature 98.2 F Pulse Rate 68 59 L 66 Respiratory Rate 17 Blood Pressure 119/71 Pulse Oximetry 99 12/02/23 04:00 Temperature Pulse Rate 59 L Respiratory Rate Blood Pressure Pulse Oximetry Intake/Output Intake/Output: Intake & Output 11/29/23 11/30/23 12/01/23 12/02/23 23:59 23:59 23:59 23:59 Intake Total 2450 120 Balance 2450 120 Meds/Results Medications: Active Medications Generic Name Dose Route Start Last Admin Trade Name Freq PRN Reason Stop Dose Admin Aspirin 81 mg 12/02/23 08:00 Aspirin 81 Mg Chewable Tablet PO DAILY@0800 [facility] Atorvastatin Calcium 40
[2023-12-02] MEDS: ASPIRIN 81 MG CHEWABLE TABLET PO (09:20)
[2023-12-02] MEDS: CLOPIDOGREL BISULFATE 75 MG TABLET PO (09:20)
[2023-12-02] MEDS: ENOXAPARIN 40 MG/0.4 ML SYRINGE SUB-Q (09:21)
[2023-12-02 09:23] LABS: Free T4 Free Thyroxine 1.21 ng/mL (0.78-2.19)
[2023-12-02 09:36] LABS: Total Triiodothyronine (T3) 0.98 NG/ML (0.97-1.69)
--- NOTE | 2023-12-02 14:57 | PC.NURSE ---
Unable to obtain MRI consent at this time. Awaiting call from sister regarding past medical history. Patient poor historian.
--- NOTE | 2023-12-02 15:42 | PC.NURSE ---
Attempt #2 to receive information regarding patient history for MRI screening form. Voicemail left with Mala.
[2023-12-02] MEDS: ATORVASTATIN 40 MG TABLET PO (20:28)
[2023-12-03] VITALS: PULSE 59
[2023-12-03 04:00] VITALS: PULSE 55
[2023-12-03 05:28] VITALS: BP 125/63; PULSE 70; RESP 17; TEMP 37.1; O2SAT 100
[2023-12-03 08:00] VITALS: PULSE 57
[2023-12-03] MEDS: CLOPIDOGREL BISULFATE 75 MG TABLET PO (08:30)
[2023-12-03] MEDS: ENOXAPARIN 40 MG/0.4 ML SYRINGE SUB-Q (08:31)
[2023-12-03] MEDS: ASPIRIN 81 MG CHEWABLE TABLET PO (08:31)
[2023-12-03] MEDS: CHOLECALCIFEROL 400 UNITS TABLET (VIT D) PO (08:31)
--- NOTE | 2023-12-03 09:49 | PC.NURSE ---
Addendum entered by Amirah Mcghee RN 12/03/23 11:41: Phone number for Lorena is [phone] Original Note: Able to get in contact with Lorena regarding MRI screening form. However, not able to answer all questions. Concern for accuracy of information received. Care coordination attempted to call daughter Mala and left voicemail to call back.
[2023-12-03 12:00] VITALS: PULSE 75
[2023-12-03 13:25] VITALS: BP 140/68; PULSE 72; RESP 18; TEMP 36.6; O2SAT 100
--- NOTE | 2023-12-03 15:44 | PC.NURSE ---
Attempt to call daughter Mala in regards to discharge plan for patient. Patient to discharge to friend Abram's house. Patient had discharged to friend's house after last inpatient stay. Voicemail left.
--- NOTE | 2023-12-03 15:54 | P.DS_ITS ---
DS: Admitting Diagnosis Discharge Date 12/03/23 Admitting Diagnosis Expressive aphasia. DS: Discharge Diagnosis Discharge Diagnosis (1) Aphasia: Code(s): R47.01 - Aphasia Status: Acute (2) Impaired decision making: Code(s): Z78.9 - Other specified health status Status: Acute DS: Summary Hospital Course Reason for hospitalization: 72yo male with depression, CHF and anxiety here for expressive aphasia. Please see H&P for details. Hospital Course: Vital signs were stable. No fevers. EKG showing sinus bradycardia with first degree AVB. CXR was clear. CTA head and neck showing no significant abnormalities. Brain MRI showing multiple old infarcts in the brain but no acute CVAs. Please see report for details. Baseline labs were unrevealing. B12, foalte normal. TSH low but FT4 normal. Vit D level low s this was replaced. TG 446 with TC 104 and LDL 48 and HDL 38. UDS was positive for cocaine. He denies cocaine use but is confused. Patient seen by neurology. Plavix and ASA ordered. He was started on Lipitor. He worked with PT/OT. Patient did well with a MBS. He is confused. Plan for family friend to pick patient up to transfer him to a family member's house. Discussed with family friend. Status at Discharge Cognitive/behavioral status at discharge: stable. Time Spent with Patient Time attestation: Total time spent providing and/or coordinating discharge services: 34 minutes Time spent: Greater than 30 minutes Exam Narrative: AF 97.8 140/68 72 18 100% ra Gen - NARD Chest - distant BS CV - RRR S1/S2. Tele showing no significant dysrhythmias Abd - Soft, NT/ND, Positive BS Ext - No pedal edema Neuro - Alert and oriented. Nonfocal exam. Psych - Nml mood and affect Skin - Warm and dry General - Awake and alert. No acute distress Eyes - PERRLA, EOMI Neck - supple Cardiovascular - RRR no m/r/g, no JVD Lungs: Clear to auscultation, No wheezing, use of accessory muscles, no crackles or wheezes. Skin - Skin warm and dry, no wounds or rashes Abdomen - Normal bowel sounds, abdomen soft and nontender Extremities - No edema, cyanosis or clubbing Musculoskeletal - 5/5 strength, normal range of motion, no swollen or erythematous joints. Neurological ? Alert and oriented x 2 (place and self) Minimal right facial weakness compared to the left Psych: Normal mood and affect, judgment difficult to assess. Discharge Plan Discharge Consulting providers: Abilio Hendrix; Ron Cano Patient Instructions: Heart Failure (GEN), How to Stop Smoking (DC), Ischemic Stroke (GEN), Self Care Measures After a Stroke (GEN) Discharge Medications: No Action naproxen 500 mg tablet 500 mg PO BID PRN (Reason: Pain (Scale Score 1-3)) Date of admission: 12/02/23 06:30 Primary Care Provider: PHYSICIAN,VP DIRECTOR OF CREATIVE STRATEGY Admitting Provider: Panfilo Haines V. Attending physician on admission: Rosenda Castelan Condition: Guarded Prognosis
--- NOTE | 2023-12-03 16:23 | PM.IMPN ---
Progress Note: A&P Assessment and Plan (1) Aphasia: Code(s): R47.01 - Aphasia Status: Acute Assessment and Plan: Vital signs were stable. No fevers. EKG showing sinus bradycardia with first degree AVB. CXR was clear. CTA head and neck showing no significant abnormalities. Brain MRI showing multiple old infarcts in the brain but no acute CVAs. Please see report for details. Baseline labs were unrevealing. B12, foalte normal. TSH low but FT4 normal. Vit D level low and this was replaced. TG 446 with TC 104 and LDL 48 and HDL 38. UDS was positive for cocaine. He denies cocaine use but is confused. Patient seen by neurology. Plavix and ASA ordered. He was started on Lipitor. He worked with PT/OT. Patient did well with a MBS. He is confused. Spoke with friend Abram. He states there is no family that can care for the patient. He states there is no aunt and there is no plan for the patient to stay with Abram. No answer at spouses phone and message left. Spoke with dtr who lives in [place]. She stated that the other dtr (lives in [place]) could possibly take him and she will reach out to her to make sure and will call us back. She also stated that even if he goes to dtr's house, he decides to leave. Continue ASA, Plavix and Lipitor. (2) Impaired decision making: Code(s): Z78.9 - Other specified health status Status: Acute Assessment and Plan: The patient DOES NOT have capacity to leave the hospital without a safe discharge plan. --Elopement precautions Placement possibly Plan DVT prophylaxis - lovenox code status - full Subjective Date/time seen: 12/03/23 16:23 Interval history: 72yo male with CVA here for expresive aphasia. He is alert but confused. He is unable to provide history. He denies cocaine use but friend Abram states patient has a hx of drug abuse Exam Narrative: AF 97.8 140/68 72 18 100% ra Gen - NARD Chest - distant BS CV - RRR S1/S2. Tele showing no significant dysrhythmias Abd - Soft, NT/ND, Positive BS Ext - No pedal edema Neuro - Alert but confused. oriented to location and month. normal strength. Psych - Nml mood and affect Skin - Warm and dry Objective Data Vital Signs Vital Signs: Vital Signs - 24 hr 12/02/23 20:09 12/02/23 20:00 12/02/23 20:00 Temperature 97.4 F L Pulse Rate 71 69 Respiratory Rate 17 Blood Pressure 128/55 L Pulse Oximetry 97 Oxygen Delivery Room Air 12/03/23 00:00 12/03/23 04:00 12/03/23 05:28 Temperature 98.8 F Pulse Rate 59 L 55 L 70 Respiratory Rate 17 Blood Pressure 125/63 Pulse Oximetry 100 Oxygen Delivery 12/03/23 08:25 12/03/23 08:00 12/03/23 12:00 Temperature Pulse Rate 57 L 75 Respiratory Rate Blood Pressure Pulse Oximetry Oxygen Delivery Room Air 12/03/23 13:25 12/03/23 16:18 Temperature 97.8 F Pulse Rate 72 74 Respiratory Rate 18 Blood Pressure 140/68 Pulse Oximetry 100 Oxygen Delivery Intake/Output Intake/Output: Intake & Output 11/30/23 12/01/23 12/02/23 12/03/23 23:59 23:59 23:59 23:59 Intake Total 2450 1080 780 Output Total 600 Balance 2450 1080 180 Meds/Results Medications: Active Medications Generic Name Dose Route Start Last Admin Trade Name Freq PRN Reason Stop Dose Admin Acetaminophen 650 mg 12/02/23 20:44 Acetaminophen 325 Mg Tablet PO Q4H PRN Mild Pain (1-3) or Fever Aspirin 81 mg 12/02/23 08:00 12/03/23 08:31 Aspirin 81 Mg Chewable Tablet PO 81 mg DAILY@0800 [facility] Administration Atorvastatin Calcium 40 mg 12/01/23 21:00 12/02/23 20:28 Atorvastatin 40 Mg Tablet PO 40 mg HS LOTTIE Administration Clopidogrel Bisulfate 75 mg 12/02/23 09:00 12/03/23 08:30 Clopidogrel Bisulfate 75 Mg Tablet PO 75 mg QAM LOTTIE Administration Enoxaparin Sodium 40 mg 12/02/23 09:00 12/03/23 08:31 Enoxaparin 40 Mg/0.4 Ml Syringe SUB-Q 40 mg DAILY [facility] Administrat
--- NOTE | 2023-12-03 19:14 | PC.NURSE ---
Patient found to not be in room @ 1700 per [employer]. Plan was to discharge patient today however, due to unstable housing situation, discharge rescinded. Prior to this RN telling the patient of discharge, patient had left. Search performed on unit without success. Security and laborer powerhouse then notified of elopement and description. Physician notified. Other units also called to be on the lookout for the patient. Patient was dressed in street clothes in anticipation for discharge. Patient was wearing a [employer] t-shirt. Patient did not have IV access. Evening laborer powerhouse called regarding next steps as patient is not in decision making capacity. Evening laborer powerhouse escalated next steps. See succeeding notes regarding escalation.
--- NOTE | 2023-12-03 19:16 | PCDIET ---
185- Upon security's review of video surveillance, patient observed leaving hospital on security camera at 1640 and heading towards bus stop. Bus seen on security camera arriving at 1647. Patient not seen on security camera after that time. 190- Multiple attempts to reach the contacts listed in patient chart. Each contact sends caller to voicemail. 1902- [place] [employer] notified per senior writer for a wellness check at the listed address in the patient chart ([facility] in [place]). 1904- Security notified [place] [employer] of patients information and discharge/ elopement from hospital earlier. 1919- Call from Officer Canelo of the [place] [employer], stating that the patient is not at that address. The occupants of that address stated that the patient only receives mail at that location, but does not live there. Will continue to monitor situation.
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
[2023-12-05 08:08] LABS: Methylmalonic Acid 198 nmol/L (69-390)
[2023-12-05 11:48] LABS: Homocysteine 13.8 umol/L (<11.4)
--- NOTE | 2023-12-09 10:44 | P.DS_ITS ---
DS: Admitting Diagnosis Discharge Date 12/03/23 Admitting Diagnosis Expressive aphasia DS: Discharge Diagnosis Discharge Diagnosis (1) Aphasia: Code(s): R47.01 - Aphasia Status: Acute (2) Impaired decision making: Code(s): Z78.9 - Other specified health status Status: Acute (3) Substance abuse: Code(s): F19.10 - Other psychoactive substance abuse, uncomplicated Status: Acute (4) Tobacco abuse: Code(s): Z72.0 - Tobacco use Status: Acute DS: Summary Hospital Course Reason for hospitalization: 72yo male with CVA here for expressive aphasia. Please see H&P for details. Hospital Course: Vital signs were stable. No fevers. EKG showing sinus bradycardia with first degree AVB. CXR was clear. CTA head and neck showing no significant abnormali ties. Brain MRI showing multiple old infarcts in the brain but no acute CVAs. Please see report for details. Baseline labs were unrevealing. B12, foalte normal. TSH low but FT4 normal. Vit D level low and this was replaced. TG 446 with TC 104 and LDL 48 and HDL 38. UDS was positive for cocaine. He denies cocaine use but is confused. Patient seen by neurology. Plavix and ASA ordered. He was started on Lipitor. He worked with PT/OT. Patient did well with a MBS. He is confused. Unclear if symptoms related to drug use or from a small CVA related to cocaine use. Spoke with friend Abram. He states there is no family that can care for the patient. He states there is no aunt and there is no plan for the patient to stay with Abram. No answer at spouses phone and message left. Spoke with dtr who lives in [place]. She stated that the other dtr (lives in [place]) could possibly take him and she will reach out to her to make sure and will call us back. She also stated that even if he goes to dtr's house, he normally decides to leave. Later in the day, the patient was found missing from his room. A search was undertaken but he was not able to be found. It was felt that he eloped. He was stable on the day he left the hospital. Status at Discharge Cognitive/behavioral status at discharge: stable Time Spent with Patient Time attestation: Total time spent providing and/or coordinating discharge services: 45 minutes Time spent: Greater than 30 minutes Exam Narrative: AF 97.8 140/68 72 18 100% ra Gen - NARD Chest - distant BS CV - RRR S1/S2. Tele showing no significant dysrhythmias Abd - Soft, NT/ND, Positive BS Ext - No pedal edema Neuro - Alert but confused. oriented to location and month. normal strength. Psych - Nml mood and affect Skin - Warm and dry Discharge Plan Discharge Consulting providers: Abilio Hendrix; Ron Cano; Alexi Lovelace; Rico Roque; Crissy Casarez; Yobani Caldwell V.; Rosenda Castelan; Gian Singh Patient Disposition: Elopement After Seen by Prov Patient Instructions: Heart Failure (GEN), How to Stop Smoking (DC), Ischemic Stroke (GEN), Self Care Measures After a Stroke (GEN) Discharge Medications: No Action naproxen 500 mg tablet 500 mg PO BID PRN (Reason: Pain (Scale Score 1-3)) Date of admission: 12/01/23 04:31 Primary Care Provider: PHYSICIAN,AIR SURVEILLANCE OPERATOR Admitting Provider: Panfilo Haines V. Attending physician on admission: Ruben Cassidy Condition: Stable
== END 2023-12-03 16:40 | disposition left against medical advice (07) ==
LOC: ANHED 12-01 04:30 → ANH2MED 12-01 05:04
PROVIDERS: Nurse Practitioner; Nurse Practitioner Acute Care; Psychiatry & Neurology Neurology; Admitting Provider Internal Medicine; Emergency Provider Student in an Organized Health Care Education/Training Program; Visit Provider Internal Medicine
DX: R47.01 Aphasia (principal); I69.351 Hemiplegia and hemiparesis following cerebral infarction affecting right dominant side; F17.210 Nicotine dependence, cigarettes, uncomplicated; F14.90 Cocaine use, unspecified, uncomplicated; R29.703 NIHSS score 3; Z53.29 Procedure and treatment not carried out because of patient's decision for other reasons
CPT/HCPCS: 36415; 70450; 70496; 70498; 70551; 71046; 80053; 80061; 80307; 81001; 82306; 82607; 82746; 82948; 83090; 83605; 83735; 83921; 84439; 84443; 84480; 84484; 85025; 85610; 85730; 86850; 86900; 86901; 92523; 92610; 92611; 93005; 96360; 97161; 97165; 99285; A9270; G0378; J1650; J7030; Q9967

== ENCOUNTER 2023-12-17 21:37 | Emergency (ER) | payer MEDICARE, MEDICAID, SELFPAY ==
[2023-12-17] VITALS (13 sets, daily range): BP systolic 134–137; BP diastolic 64–67; PULSE 70–83; RESP 13–26; TEMP 36.7; O2SAT 95–100
--- NOTE | ~2023-12-17 | CT_ITS ---
EXAMINATION: CTA BRAIN/CAROTID DATE: 12/17/2023 22:11 INDICATION: Right-sided hemiparesis with dysphagia and difficulty speaking TECHNIQUE: Computed tomographic angiography (CTA) of the head and neck was performed with 100 mL Omni paque-350 intravenous contrast. Multiplanar reconstructions and maximum intensity projection 3D-recon structions of the carotid arteries and of the intracranial arteries were created by the technologist on a separate workstation. Automated exposure control and iterative reconstruction technique were em ployed.The dose-length product was 1072.65 mGy-cm. COMPARISON: None. FINDINGS: Carotid arteries: Mild emphysema. Visualized thoracic aorta is normal in caliber with no hemodynamic significant athero sclerotic plaque and no dissection. Instantly noted are prominent orifices to the vertebral arteries arising from the right side of the proximal descending thoracic aorta. There is atherosclerotic plaqu e with 0% stenosis of the right and left carotid bulbs relative to normal distal artery lumen diamete r (NASCET criteria). Vertebral arteries are codominant with minimal nonhemodynamically significant at herosclerotic plaque at the origin of the right vertebral artery. No evident plaque along the left ve rtebral artery. Multinodular goiter with couple likely benign subcentimeter thyroid nodules. Moderate to severe cervical spondylosis. Intracranial arteries Small amount of nonhemodynamically significant atherosclerotic plaque at the bilateral carotid siphon s. There is no hemodynamically significant stenosis in the vertebral, basilar and internal carotid ar teries. Vertebral arteries are codominant. There are no aneurysms identified. Both A1 and P1 segment s are patent. The left P1 segment is diminutive. There are patent bilateral posterior communicating a rteries. Cerebral arterial arborization appears symmetric. IMPRESSION: 1. Atherosclerotic plaque with 0% stenosis of the right and left carotid bulbs relative to normal dis katie artery lumen diameter (NASCET criteria). 2. Unremarkable cerebral CT angiogram with no hemodynamically significant stenosis or aneurysm. Reviewed, dictated and finalized at location A. IMPRESSION: 1. Atherosclerotic plaque with 0% stenosis of the right and left carotid bulbs relative to normal distal artery lumen diameter (NASCET criteria). 2. Unremarkable cerebral CT angiogram with no hemodynamically significant steno sis or aneurysm.
--- NOTE | ~2023-12-17 | XR_ITS ---
EXAMINATION: XR chest 1V portable DATE: 12/17/2023 22:32 INDICATION: Possible stroke TECHNIQUE: AP view of the chest was obtained. COMPARISON: Chest radiograph dated 12/01/2023 FINDINGS: Mild elevation the left hemidiaphragm. There are patchy airspace opacities in the left lower lung zon e. No pulmonary edema, pleural effusion or pneumothorax. The cardiomediastinal silhouette is normal. IMPRESSION: 1. New patchy airspace opacity left lower lung zone which could represent atelectasis or pneumonia. Reviewed, dictated and finalized at location A. IMPRESSION: 1. New patchy airspace opacity left lower lung zone which could represent atele ctasis or pneumonia.
--- NOTE | ~2023-12-17 | CT_ITS ---
EXAMINATION: CT brain wo con DATE: 12/17/2023 22:11 INDICATION: Dysphagia and weakness. TECHNIQUE: Computed tomography (CT) of the head was performed without intravenous contrast. Sagittal and coronal reconstructions were performed. The mA was adjusted according to patient size. Iterative reconstruction technique was employed. The dose-length product was 681.00 mGy-cm. COMPARISON: head CT dated 11/30/2023 and MRI dated 12/03/2023 FINDINGS: Again seen are multiple small regions of encephalomalacia in the left frontal and parietal lobes cons istent with chronic infarcts. Additional unchanged small old infarct in the right parietal lobe, left basal ganglia and left cerebellar hemisphere. There is moderate scattered white matter hypoattenuati on consistent with chronic small vessel ischemic disease. No acute intracranial hemorrhage, acute inf arction or abnormal extra axial fluid collection. Ventricles are normal and symmetric with normal rhianna iant cavum septum pellucidum et vergae. No mass/mass effect. Changes of left intraocular lens replace ment. The orbits, paranasal sinuses and mastoid air cells are normal. IMPRESSION: 1. No acute intracranial process. 2. Stable appearance of multiple old infarcts including the left cerebellum, left basal ganglia, righ t parietal lobe and multiple in the left frontal and parietal lobes. 2. Moderate scattered white matter hypoattenuation consistent with chronic small vessel ischemic dise ase. Reviewed, dictated and finalized at location A. IMPRESSION: 1. No acute intracranial process. 2. Stable appearance of multiple old infarcts including the left cerebellum, le ft basal ganglia, right parietal lobe and multiple in the left frontal and angela etal lobes. 2. Moderate scattered white matter hypoattenuation consistent with chronic smal l vessel ischemic disease.
--- NOTE | 2023-12-17 21:43 | ECG_ITS ---
Test Date: 2023-12-17 21:45:41 Measurements Intervals [place] Rate: 81 P: 67 [place]: 193 QRS: 69 QRSD: 88 T: 73 QT: 364 QTc: 424 Interpretive Statements SINUS RHYTHM WITHIN NORMAL LIMITS Compared to ECG 12/01/2023 01:59:28 SLIGHTLY SHORTER [place] INTERVAL Electronically Signed On 12-18-2023 08:44:45 CDT by Alexi Lovelace M.D.
[2023-12-17 21:46] LABS: Glucose Point of Care 178 mg/dl (65-105)
--- NOTE | 2023-12-17 22:02 | ED.NEUROSD ---
HPI - Neuro Symptoms/Deficit General Chief Complaint: Suspected CVA Stated Complaint: possible stroke Time Seen by Provider: 12/17/23 21:42 History of Present Illness HPI Narrative: This is a 73-year-old male with a history of substance abuse presenting for possible stroke. Patient says that at 10:00 a.m. he started developed right arm and right leg weakness as aphasia/dysarthria. Patient has no other neurologic deficits. He denies any use of cocaine. Review of the EMR shows that he has residual right arm weakness from a stroke in 2021 Patient was admitted to the hospital for similar complaints on November 30. That time he had an MRI which showed old strokes but no acute infarctions. He then eloped from the hospital. Related Data Home Medications Medication Instructions Recorded Confirmed naproxen 500 mg tablet 500 mg PO BID PRN Pain (Scale 12/01/23 12/01/23 Score 1-3) Allergies Allergy/AdvReac Type Severity Reaction Status Date / Time No Known Allergies Allergy Verified 09/08/23 22:49 [facility] Past Medical History Medical History (Updated 12/18/23 @ 02:46 by Mani Berg MD) Arthritis Cocaine abuse History of anxiety History of CHF (congestive heart failure) History of depression Normocytic anemia Tobacco abuse Surgical History Surgical History History of left knee replacement Social History Social History Smoking packs per day: 1 Smoking cigarettes per day: 20.0 Smoking status: Current every day smoker Alcohol intake: never Substance use: current Substance use type: crack/cocaine Last use: [facility] ON ADMISSION Do You Feel Safe in your Home?: Yes Lack of Transportation: YES Lack of Food: Sometimes True Current Housing: I Do Not Have Housing Concerned About Future Housing: YES Difficulty Paying Gas/Electric Bills: YES Difficulty Paying for Meds: YES Currently Unemployed: YES Education: Don't Know Difficulty w/ Childcare or Family Care: No Gender identity (if verbalized by the patient): Male Spiritual care concerns: No Exam Narrative: APPEARANCE: No apparent distress. dysarthric speech Head: atraumatic. EYES: EOMI, NOSE: Atraumatic NECK: Trachea midline RESPIRATORY: No increased rate of breathing CARDIOVASCULAR: RRR, ABDOMINAL: Non-distended MUSCULOSKELETAl: No obvious deformities NEURO: Alert. Cranial nerves 2-12 grossly intact. patient has slight drift in the right arm. patient says he cannot lift the right leg against gravity although he has been seen walking around the emergency department With a normal gait. Left arm and left leg are normal. SKIN:: Warm, dry. Normal color PSYCHIATRIC: Normal affect Course Vital Signs Vital signs: Vital Signs Temperature 98.1 F 12/17/23 21:43 Pulse Rate 81 12/17/23 21:43 Respiratory Rate 20 12/17/23 21:43 Blood Pressure 134/67 12/17/23 21:43 Pulse Oximetry 100 12/17/23 21:43 Oxygen Delivery Room Air 12/17/23 21:43 Temperature 98.1 F 12/17/23 21:43 Pulse Rate 66 12/18/23 01:38 Respiratory Rate 16 12/18/23 01:38 Blood Pressure 130/68 12/18/23 01:38 Pulse Oximetry 99 12/18/23 01:38 Oxygen Delivery Room Air 12/17/23 21:43 MDM - Neuro Symptoms/Deficit MDM Narrative Medical decision making narrative: -Course: This is a 73-year-old homeless male history of cocaine abuse and previous CVAs presenting for CVA symptoms. The patient says his symptoms started at 10am, however they are all well documented from his identical presentation 2 weeks ago. Additionally he said he was unable to lift his right leg against gravity on my exam but then he has been seen walking around the emergency department without difficulty. Last time he was admitted for this he had a normal MRI and then he eloped from the hospital. Patient when questioned
[2023-12-17 22:08] LABS: Estimated Glomerular Filt Rate > 60
--- NOTE | 2023-12-17 22:15 | PC.NURSE ---
This RN noted that the patients behavior changes as different staff and providers evaluate him. Patient able to assist more with exam and assessment when only this RN in room, but when provider or tech enters room, patient is less able to assist with exam or assessment. ERP notified.
[2023-12-17 22:31] LABS: Basophils Percent Auto 0.7 % (0.2-1.2); Eosinophils Absolute Auto 0.1 K/mm3 (0-0.3); Eosinophils Percent Auto 1.1 % (0-4.4); Hematocrit 38.5 % (42.0-52.0); Hemoglobin 12.4 g/dL (14.0-18.0); Immature Granulocyte Absolute 0.01 K/mm3 (0.00-0.031); Immature Granulocyte Percent A 0.2 % (0-0.5); Immature Platelet Fraction Pct 8.2 % (0.9-11.2); Lymphocytes Absolute Auto 1.72 K/mm3 (0.9-3.2); Lymphocytes Percent Auto 31.2 % (18.3-44.2); Mean Corpuscular HGB Conc 32.2 g/dl (32-36); Mean Corpuscular Hemoglobin 31.1 pg (26-34); Mean Corpuscular Volume 96.5 fl (80-100); Mean Platelet Volume 10.9 fl (7.4-10.4); Monocytes Absolute Auto 0.3 K/mm3 (0.1-0.6); Monocytes Percent Auto 5.6 % (2.6-8.5); Neutrophils Absolute Auto 3.4 K/mm3 (1.3-6.7); Neutrophils Percent Auto 61.2 % (45.5-73.1); Platelet Count Result 126 k/mm3 (150-375); Red Blood Count 3.99 M/mm3 (4.6-6.20); Red Cell Distribution Width 13.2 % (11.5-14.5); White Blood Count 5.5 K/mm3 (4.5-10.0)
[2023-12-17 22:43] LABS: INR 1.2; Partial Thromboplastin Time 25.1 Seconds (22.3-36.8); Prothrombin Time 15.5 Seconds (11.1-14.7)
[2023-12-17 22:46] LABS: Ethanol < 10 mg/dL (<10)
[2023-12-17 23:05] LABS: Add Urine Microscopic? NO; Appearance Urine Clear (Clear); Bilirubin Urine Negative (Negative); Blood Urine Negative (Negative); Color Urine Yellow (Yellow); Glucose Urine UA 1+ mg/dL (Negative); Ketones Urine Trace mg/dL (Negative); Leukocyte Esterase Ur Negative LEU/UL (Negative); Nitrate Urine Negative (Negative); Protein Urine Negative (Negative); Specific Grav Ur 1.033 (1.001-1.035); pH Urine 5.5 (5.0-9.0)
[2023-12-17 23:14] LABS: Alanine Aminotransferase 10 U/L (6-50); Albumin Level 3.7 g/dL (3.5-5.1); Alkaline Phosphatase 68 U/L (38-126); Anion Gap 6 mmol/L (4-12); Aspartate Amino Transferase 17 U/L (17-59); Bilirubin,Total 0.4 mg/dL (0.2-1.3); Blood Urea Nitrogen 26 mg/dL (9-20); Calcium 8.7 mg/dL (8.4-10.2); Carbon Dioxide 28 mmol/L (22-30); Chloride 107 mmol/L (98-107); Estimated Glomerular Filt Rate > 60; Glucose 103 mg/dL (65-110); Potassium 3.7 mmol/L (3.4-5.0); Sodium 141 mmol/L (137-145)
--- NOTE | 2023-12-17 23:17 | PC.NURSE ---
Patient did ambulated to the bathroom with a stand by assist. Patient had steady gait and did provide a sample.
[2023-12-17 23:25] LABS: Amphetamine Screen Urine Negative (Negative); Barbiturate Screen Urine Negative (Negative); Benzodiazepines Screen Urine Negative (Negative); Cannabinoid Screen Urine Negative (Negative); Cocaine Screen Urine Positive (Negative); Methadone Screen Urine Negative (Negative); Opiate Screen Urine Negative (Negative); Phencyclidine Screen Urine Negative (Negative)
[2023-12-17 23:33] LABS: Troponin I < 0.012 ng/mL (0.000-0.034)
[2023-12-18] VITALS (8 sets, daily range): BP systolic 102–130; BP diastolic 50–68; PULSE 64–72; RESP 15–19; O2SAT 96–100
--- NOTE | 2023-12-18 01:18 | PC.NURSE ---
Patient up in ferny frequently taking monitoring equipment off and opening and closing door to room. Patient has steady gait. Patient easily re-directble and a/ox4. Patient back on stretcher with monitoring equipment placed back on and call light within reach.
--- NOTE | 2023-12-18 02:15 | PC.NURSE ---
Patient informed of ERP decision to discharge. This RN asked patient if his contact or person to notify can be called for him to be taken home. Patient stated no, I will wait for the bus. Patient informed of current time and that unsure of bus run times on tuesday. Patient stated I will wait for the bus. critical care rn notified. critical care rn states patient can wait in waiting room for bus.
== END 2023-12-18 03:07 | disposition home or self-care (01) ==
PROVIDERS: Emergency Provider Emergency Medicine
DX: R47.01 Aphasia (principal); I69.331 Monoplegia of upper limb following cerebral infarction affecting right dominant side; Z59.00 Homelessness unspecified; Z76.5 Malingerer [conscious simulation]; I50.9 Heart failure, unspecified; D64.9 Anemia, unspecified; M19.90 Unspecified osteoarthritis, unspecified site; F14.10 Cocaine abuse, uncomplicated; F17.210 Nicotine dependence, cigarettes, uncomplicated; Z96.652 Presence of left artificial knee joint; R91.8 Other nonspecific abnormal finding of lung field
CPT/HCPCS: 36415; 70450; 70496; 70498; 71045; 80053; 80307; 81003; 82948; 84484; 85025; 85055; 85610; 85730; 93005; 99284; Q9967

== ENCOUNTER 2024-03-19 19:41 | Emergency (ER) | payer MEDICARE, MEDICAID, SELFPAY ==
--- NOTE | ~2024-03-19 | XR_ITS ---
Clinical Indication: Cough PA and lateral views of the chest: Comparison: 12/17/2023 Findings: Questionable minimal focal haziness right upper lobe. Left lung clear. Cardiomediastinal s ilhouette is within normal limits. Bones and soft tissues are unremarkable. Impression: Questionable subtle right upper lobe pneumonia. Reviewed, dictated and finalized at location . M CONDITIONING OPERATOR Impression: Questionable subtle right upper lobe pneumonia.
[2024-03-19 19:46] VITALS: BP 163/81; PULSE 76; RESP 14; TEMP 36.5; O2SAT 100
--- NOTE | 2024-03-20 00:35 | ECG_ITS ---
Test Date: 2024-03-20 01:17:54 Measurements Intervals [place] Rate: 69 P: 70 TN: 203 QRS: 62 QRSD: 89 T: 66 QT: 388 QTc: 416 Interpretive Statements SINUS RHYTHM BASELINE ARTIFACT- I, II, AVR, AVL, AVF, V1-V2, V4 NORMAL ECG Compared to ECG 12/17/2023 21:45:41 No significant changes Electronically Signed On 03-20-2024 10:03:31 [employer]EC[employer]IVE [employer] by Cody Stevens D.O.
--- NOTE | 2024-03-20 00:39 | ED.URI ---
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 Patient states cough is productive. Reports associated shortness of breath. Denies lower extremity edema, hemoptysis, fever, abdominal pain, chest pain. Admits to smoking. Related Data Home Medications Medication Instructions Recorded Confirmed naproxen 500 mg tablet 500 mg PO BID PRN Pain (Scale 12/01/23 12/01/23 Score 1-3) Allergies Allergy/AdvReac Type Severity Reaction Status Date / Time No Known Allergies Allergy Verified 03/20/24 00:43 Review of Systems Review of Systems: All systems reviewed & are unremarkable except as noted in HPI and below PMFSH Past Medical History Medical History Arthritis Cocaine abuse History of anxiety History of CHF (congestive heart failure) History of depression Normocytic anemia Tobacco abuse Surgical History Surgical History History of left knee replacement Social History Social History Smoking packs per day: 1 Smoking cigarettes per day: 20.0 Smoking status: Current every day smoker Alcohol intake: never Substance use: current Substance use type: crack/cocaine Last use: POSITIVE LABS ON ADMISSION Do You Feel Safe in your Home?: Yes Lack of Transportation: YES Lack of Food: Sometimes True Current Housing: I Do Not Have Housing Concerned About Future Housing: YES Difficulty Paying Gas/Electric Bills: YES Difficulty Paying for Meds: YES Currently Unemployed: YES Education: Don't Know Difficulty w/ Childcare or Family Care: No Gender identity (if verbalized by the patient): Male Spiritual care concerns: No Exam Narrative: GENERAL: Well-appearing, well-nourished, and in no acute distress. HEAD: Normocephalic, atraumatic. EYES: EOMI. ENT: Nares clear, no rhinorrhea or epistaxis. Mucous membranes moist. NECK: Supple. CHEST: Minimal expiratory rhonchi throughout all lung [place], no respiratory distress HEART: Regular rate and rhythm. No murmur heard. Normal peripheral pulses. ABDOMEN: Soft, nontender, nondistended, normal active bowel sounds. EXTREMITIES: Normal range of motion. No edema. SKIN: Warm, dry, no rash. NEURO: Alert and oriented x3. 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 Vitals with high blood pressure, otherwise unremarkable. He is afebrile nontoxic appearing. Exam is significant for the above. EKG shows normal sinus rhythm with a rate of 69 ppm, first-degree AV block with a NM interval of 203, normal QRS duration, normal QTC, no ischemic changes. CBC shows no leukocytosis. Hemoglobin is 12.3 which is patient's baseline. Chemistries are unremarkable. BNP within normal limits at 183. Chest x-ray shows no acute cardiopulmonary findings. Patient refused COVID, flu, RSV testing. He was updated on his workup. Suspect viral URI/ undiagnosed COPD with exacerbation. Will provide Augmentin, steroids and albuterol inhaler. Encouraged follow-up with PCP. Strict ED return precautions discussed. He is agreeable to plan verbalized understanding. Discharged in stable condition. Patient given homeless care home referrals. Lab Data 03/20/24 00:51 03/20/24 00:51 Labs: Lab Results 03/20/24 Range/Units 00:51 WBC 6.3 (4.5-10.0) K/mm3 RBC 4.17 L (4.6-6.20) M/mm3 Hgb 12.3 L (14.0-18.0) g/dL Hct 39.2 L (42.0-52.0) % MCV 94.0 (80-100) fl MCH 29.5 (26-34) pg MCHC 31.4 L (32-36) g/dl RDW 12.5 (11.5-14.5) % Plt Count 205 D (150-375) k/mm3 MPV 9.4 (7.4-10.4) fl Immature Gran % (Auto) 0.3 (0-0.5) % Neut % (Auto) 50.3 (45.5-73.1) % Lymph % (Auto) 41.1 (18.3-44.2) % [place] % (Auto) 6.7 (2.6-8.5) % Eos % (Auto) 1.1 (0-4.4) % Baso % (Auto) 0.5 (0.2-1.2) % Lymph # (Auto) 2.57 (0.9-3.2) K/mm3 [place] # (Auto) 0.4 (0.1-0.6) K/mm3 Eos # (Auto) 0.1 (0-0.3) K/mm3 Baso # (Auto) 0.0 (0.0-0.1) K/mm3 Abs Immat Gran (auto) 0.02 (0.00-0.031) K/mm3 Absolute Neuts (auto) 3.1 (1.3-6.7) K/mm3 Absolute Nucleated RBC 0.000 (0.0-0.012) K/mm3 Nucleated RBC % 0.0 (0.0-0.2) % PT 14.3 (11.1-14.7) Seconds INR 1.1 APTT 31.5 (22.3-36.8) Seconds Sodium 140 (137-145) mmol/L Potassium 4.0 (3.4-5.0) mmol/L Chloride 106 (98-107) mmol/L Carbon Dioxide 29 (22-30) mmol/L Anion Gap 5 (4-12) mmol/L BUN 19 (9-20) mg/dL Creatinine 0.80 (0.7-1.3) mg/dL Estim Creat Clear Calc 71 ml/min Estimated GFR > 60 (59 - ) Glucose 79 (65-110) mg/dL Calcium 8.5 (8.4-10.2) mg/dL Magnesium 1.9 (1.6-2.3) mg/dL Total Bilirubin 0.6 (0.2-1.3) mg/dL AST 20 (17-59) U/L ALT 10 (6-50) U/L Alkaline Phosphatase 65 (38-126) U/L NT-Pro-B Natriuret Pep 183 H (19.9-100) pg/mL Total Protein 8.0 (6.3-8.2) g/dL Albumin 3.9 (3.5-5.1) g/dL Discharge Plan Discharge Clinical Impression: Bronchitis Upper respiratory infection Qualifiers: URI type: unspecified viral URI Qualified Code(s): J06.9 - Acute upper respiratory infection, unspecified Patient Disposition: Home, Self-Care Condition: Stable Instructions: Antibiotic Form, How to Stop Smoking (ED), Viral Syndrome (ED) Additional Instructions: You were evaluated in the emergency department for cough and congestion. Please take the medications as directed. Stop smoking. Return to the emergency department if you develop any new or worsening symptoms. Prescriptions: New amoxicillin-pot clavulanate 875-125 mg tablet 1 tablet PO Q12H Qty: 14 0RF prednisone 20 mg tablet 40 mg PO DAILY Qty: 10 0RF albuterol sulfate 90 mcg/actuation HFA aerosol inhaler 1 inh inhalation QID PRN (Reason: shortness of breath or wheezing) Qty: 6.7 0RF No Action naproxen 500 mg tablet 500 mg PO BID PRN (Reason: Pain (Scale Score 1-3)) Follow-up/Referrals: Lisette Acosta MD [Physician] - 1 Day UNKNOWN,DOCTOR [Primary Care Provider] -
[2024-03-20 00:43] VITALS: O2SAT 100
[2024-03-20 00:50] VITALS: BP 132/77; PULSE 68; RESP 18; O2SAT 100
[2024-03-20] MEDS: ALBUTEROL SULFATE NEB 2.5 MG/3 ML INH INHALATION (00:54)
[2024-03-20 00:58] LABS: Basophils Percent Auto 0.5 % (0.2-1.2); Eosinophils Absolute Auto 0.1 K/mm3 (0-0.3); Eosinophils Percent Auto 1.1 % (0-4.4); Hematocrit 39.2 % (42.0-52.0); Hemoglobin 12.3 g/dL (14.0-18.0); Immature Granulocyte Absolute 0.02 K/mm3 (0.00-0.031); Immature Granulocyte Percent A 0.3 % (0-0.5); Lymphocytes Absolute Auto 2.57 K/mm3 (0.9-3.2); Lymphocytes Percent Auto 41.1 % (18.3-44.2); Mean Corpuscular HGB Conc 31.4 g/dl (32-36); Mean Corpuscular Hemoglobin 29.5 pg (26-34); Mean Platelet Volume 9.4 fl (7.4-10.4); Monocytes Absolute Auto 0.4 K/mm3 (0.1-0.6); Monocytes Percent Auto 6.7 % (2.6-8.5); Neutrophils Absolute Auto 3.1 K/mm3 (1.3-6.7); Neutrophils Percent Auto 50.3 % (45.5-73.1); Platelet Count Result 205 k/mm3 (150-375); Red Blood Count 4.17 M/mm3 (4.6-6.20); Red Cell Distribution Width 12.5 % (11.5-14.5); White Blood Count 6.3 K/mm3 (4.5-10.0)
--- NOTE | 2024-03-20 01:00 | PC.NURSE ---
Pt refuses covid swab. Brandon Downing notified. No further orders.
[2024-03-20 01:11] LABS: Alanine Aminotransferase 10 U/L (6-50); Albumin Level 3.9 g/dL (3.5-5.1); Alkaline Phosphatase 65 U/L (38-126); Anion Gap 5 mmol/L (4-12); Aspartate Amino Transferase 20 U/L (17-59); Bilirubin,Total 0.6 mg/dL (0.2-1.3); Blood Urea Nitrogen 19 mg/dL (9-20); Calcium 8.5 mg/dL (8.4-10.2); Carbon Dioxide 29 mmol/L (22-30); Chloride 106 mmol/L (98-107); Estimated CRCL calculation 71 ml/min; Estimated Glomerular Filt Rate > 60; Glucose 79 mg/dL (65-110); Magnesium 1.9 mg/dL (1.6-2.3); Sodium 140 mmol/L (137-145)
[2024-03-20 01:14] LABS: INR 1.1; Prothrombin Time 14.3 Seconds (11.1-14.7)
[2024-03-20 01:15] LABS: Partial Thromboplastin Time 31.5 Seconds (22.3-36.8)
[2024-03-20 01:19] LABS: NT Pro B Type Natriuretic Pept 183 pg/mL (19.9-100)
[2024-03-20] MEDS: predniSONE 20 MG TABLET 60 MG PO (02:15)
[2024-03-20] MEDS: AMOXICILLIN/CLAVULANATE K 875-125 MG TAB 1 TABLET PO (02:15)
== END 2024-03-20 02:45 | disposition home or self-care (01) ==
PROVIDERS: Emergency Provider Physician Assistant
DX: J06.9 Acute upper respiratory infection, unspecified (principal); F43.20 Adjustment disorder, unspecified; I69.920 Aphasia following unspecified cerebrovascular disease; I69.998 Other sequelae following unspecified cerebrovascular disease; I50.9 Heart failure, unspecified; D64.9 Anemia, unspecified; F17.210 Nicotine dependence, cigarettes, uncomplicated
CPT/HCPCS: 36415; 71046; 80053; 83735; 83880; 85025; 85610; 85730; 93005; 94640; 99283; A9270; J7512

== ENCOUNTER 2024-06-05 15:50 | Emergency (ER) | payer MEDICAID, SELFPAY ==
--- NOTE | ~2024-06-05 | XR_ITS ---
HISTORY: great toe injury COMPARISON: None TECHNIQUE: 2 views of the right foot were performed FINDINGS: No acute fracture or dislocation is appreciated. Significant degenerative disease is noted. Moderate calcaneal spur is present. Ossification of the insertion of the Achilles tendon is noted. The base of the fifth metatarsal is intact. Forefoot soft tissue swelling is present. IMPRESSION: No acute fracture Reviewed, dictated and finalized at location A. RNAL CONTROLS CONSULTANT IMPRESSION: No acute fracture
--- OUTSIDE RECORDS SUMMARY | 2024-06-05 15:53 | XMS_ITS | Clinical Summary ---
Author Organization [facility] Address [address] [address] Phone Care Team Providers Care Ceramic Tile Setter Name Role Phone Provider, None Primary Care Provider Unavailabl e Provider, Unknown Unavailable Unavailable Allergies No known active allergies Medications acetaminophen (TYLENOL) 325 MG TabletIndications:P rimary osteoarthritis of both knees Take 2 Tablets by mouth every 6 hours as needed for Mild or more severe pain. 120 Tablet 1 Active [facility] Aspirin Adult Low Dose 81 MG Chewable Tablet TAKE 1 TABLET BY MOUTH EVERY DAY AT 8AM 30 Tablet 5 2 Active thiamine (VITAMIN B1) 100 MG Tablet TAKE 1 TABLET BY MOUTH EVERY DAY 30 Tablet 5 2 Active naproxen (NAPROSYN) 500 MG Tablet Take 1 Tablet by mouth 2 times daily (with meals). 30 Tablet 4 Active Active Problems Problem Noted Date Diagnosed Date Cerebrovascular accident (CVA) 12/10/2020 Multiple lung nodules 10/08/2020 Subclinical hyperthyroidism 10/08/2020 Cocaine abuse 10/04/2020 Generalized weakness 10/04/2020 Homelessness 10/04/2020 Moderate malnutrition 09/25/2020 COPD (chronic obstructive pulmonary disease) Overview (12/10/2020): Last Assessment & Plan: Currently not in acute exacerbation. Continue monitoring Current smoker 09/21/2018 Overview (12/10/2020): Last Assessment & Plan: Start on Nicoderm patch Primary osteoarthritis of both knees 09/21/2018 Overview (12/10/2020): Last Assessment & Plan: Will start on Tylenol, alternate with Motrin as needed Chronic low back pain without sciatica 8 Overview (12/10/2020): Last Assessment & Plan: Start on tylenol, alternate with motrin as needed Immunizations Immunization Administration Dates Next Due Covid-19, Mrna, Lnp-s, Pf, 3 0 Mcg/0.3 Ml Dose (iCopyright) 06/05/2021 TDAP Vaccine 06/02/2020,01/02/2019,12/08/2016 Tuberculin Skin Test; Purifi ed Protein Derivative Solutiol 10/21/2020 Family History Medical History Relation Name Comments Stroke Mother Relation Name Status Comments Mother Social History Tobacco Use Types Packs/Day Years Used Date Smoking Tobacco: Every Day Cigarettes 1 25 Smokeless Tobacco: Never Tobacco Cessation:Ready to Q uit: No; Counseling Given: Yes Alcohol Use Standard Drinks/Week Comments No 0 (1 standard drink = 0.6 oz pure alcohol) hx of alcohol abuse. no drinking now per pt PHQ-2 Answer Date Recorded Total Score - Questions 1-9 1 01/01 Sex and Gender Information Value Date Recorded Sex Assigned at Not on file Legal Sex Male 9:50 PM CDT Gender Identity Not on file Sexual Orientation Not on file Last Filed Vital Signs Vital Sign Reading Time Taken Comments Blood Pressure 110/65 11/30/2023 5:43 AM CDT Pulse 93 11/30/2023 4:21 AM CDT Temperature 36.4 ??C (97.5 ??F) 11/30/2023 4:21 AM CD T Respiratory Rate 18 11/30/2023 4:21 AM CDT Oxygen Saturation 100% 11/30/2023 4:21 AM CDT Inhaled Oxygen Concentration - - Weight 72.6 kg (160 lb) 11/30/2023 4:21 AM CDT Height 167.6 cm (5' 6 ) 11/30/2023 4:21 AM CDT Body Mass Index 25.82 11/30/2023 4:21 AM CDT Plan of Treatment Health Maintenance Due Date Last Done Comments Hepatitis C Virus (HCV) Screening 1950 Pneumococcal Immunization (5 0+ years) (1 of 2 - PCV) 12/13/1970 Colonoscopy 12/13/1996 Colorectal Cancer Screening 12/13/1996 Cologuard 12/13/2001 Immunochemical Fecal Occult Blood 12/13/2001 Lung Cancer Screening 12/13/2001 Zoster Immunization (1 of 2) 12/13/2001 Respiratory Syncytial Virus (RSV) Immunization (Adult) (1 - Risk 60-74 years 1-dose series) 2011 AAA Screening Ultrasound 12/13/2016 Influenza Immunization (#1) 2024 05/24/2018 SARS-COV-2 Immunization (2 - season) 2024 06/05/2021 Td Immunization Every 10 Yea rs (Adults With 1 Tdap) 06/02/2030 06/02/2020, 01/02/2019, 12/08/2016 DTaP/Tdap/Td Immunization Discontinued 2020, 01/02/2019, 12/08/2016 Hepatitis B Immunization Aged Out No longer eligible based on patient's age to complete this topic Meningococcal Immunization (ACWY) Aged Out No longer eligible based on patient's age to complete this topic Rotavirus Immunization Aged Out No lo nger eligible based on patient's age to complete this topic Insurance MEDICAID [place] MEDICARE C [employer] MEDICARE C [facility] Advance Directives * Full Code (Latest Code Status on File) Date Activated Date Inactivated Comments 11/26/2020 10:26 AM 07/22/2021 4:56 AM Care Teams Ceramic Tile Setter Relationship Specialty Start Date End Date Provider, None [place] PCP - General 04/11/23 Provider, Unknown UNKNOWN 04/11/23
--- OUTSIDE RECORDS SUMMARY | 2024-06-05 15:53 | XMS_ITS | Referral Summary ---
Author Organization [facility] Address [address] [place] [address] Care Team Providers Care Real Estate Assessor Name Role Phone Unavailable Primary Care Provider Unavailabl e Source Comments [facility] [employer],non-[facility] Affiliates and Associated Physician Practices is amultiple site organization consisting of ambulatory clinics and hospital sitesin [place], [place], [place] and [place]. This disclosure is being madepursuant to the Care Everywhere program and may not contain all information available regarding this patient. Last updated 18.[facility] [employer] Allergies No known active allergies Medications Be aware that medications may not be up to date on this document. Always verify current medications with the patient. No known medications Active Problems No known active problems Social History Tobacco Use Types Packs/Day Years Used Date Smoking Tobacco: Every Day Cigarettes Smokeless Tobacco: Never Alcohol Use Standard Drinks/Week Comments Never 0 (1 standard drink = 0.6 oz pur e alcohol) AUDIT-C Answer Date Recorded Frequency of Alcohol Consumption Never 06/06/2019 Average Number of Drinks Not on file 020 Frequency of Binge Drinking Not on file 08/2019 Sex and Gender Information Value Date Recorded Sex Assigned at Not on file Gender Identity Not on file Sexual Orientation Not on file Last Filed Vital Signs Vital Sign Reading Time Taken Comments Blood Pressure 116/62 06/06/2019 7:10 AM SECRETARY OF POLICE Pulse 61 06/06/2019 7:10 AM SECRETARY OF POLICE Temperature 36.1 ??C (96.9 ??F) 06/06/2019 7:10 AM CS T Respiratory Rate 20 06/06/2019 10:14 AM SECRETARY OF POLICE Oxygen Saturation 99% 06/06/2019 7:10 AM SECRETARY OF POLICE Inhaled Oxygen Concentration - - Weight 77.1 kg (170 lb) 06/06/2019 7:10 AM SECRETARY OF POLICE Height 167.6 cm (5' 6 ) 06/06/2019 7:10 AM SECRETARY OF POLICE Body Mass Index 27.44 06/06/2019 7:10 AM SECRETARY OF POLICE Plan of Treatment Not on file
--- OUTSIDE RECORDS SUMMARY | 2024-06-05 15:53 | XMS_ITS | Clinical Summary ---
Author Organization [facility] Address [address] [place] [address] Care Team Providers Care Frame Pulley Mortising Machine Operator Name Role Phone Miscellaneous, Not In File Unavailable Heatherva Eddie Delgado MD Primary Care Provider Unav ailable Allergies No known active allergies Medications acetaminophen (TYLENOL) 325 mg tabletIndicatio ns:Fever,Pain Take 2 tablets (650 mg total) by mouth every 4 (four) hours as needed for pain 30 tablet 09/30/2020 Active folic acid (FOLVITE) 1 mg tablet Take 1 tablet (1 mg total) by mouth daily 30 tablet 10/09/2020 Active clopidogreL (PLAVIX) 75 mg tablet Take 1 tablet (75 mg total) by mouth daily 30 tablet 3 11/30/2020 Active atorvastatin (LIPITOR) 10 mg tablet Take 4 tablets (40 mg total) by mouth daily 30 tablet 3 11/30/2020 Active aspirin 81 mg chewable tablet Take 1 tablet (81 mg total) by mouth daily 30 tablet 11 11/30/2020 Active Active Problems Problem Noted Date Diagnosed Date UTI (urinary tract infection) 10/14/2021 Assessment & Plan (10/14/2021 12:34 AM CDT): Suspected. Patient has abnormal UA with dysuria, sweats and suspected recrudescence of prior CVA symptoms. Continue ceftriaxone for now. UCx in process. Hypokalemia 10/14/2021 Assessment & Plan (10/14/2021 12:46 AM CDT): S/p replacement. Mag was 2.0. Continue to monitor and replace as needed. Loss of consciousness (CMS/HCC) 10/13/2021 Assessment & Plan (10/14/2021 12:38 AM CDT): Exact etiology unclear. Patient felt better after IVFs in the ED. Will continue with IVF for another 1L total of NS as patient may be volume depleted. Continue to monitor on tele. Fall precautions. Subclinical hyperthyroidism 10/08/2020 Multiple lung nodules 10/08/2020 Generalized weakness 10/04/2020 Homelessness 10/04/2020 Cocaine abuse 10/04/2020 Assessment & Plan (10/14/2021 12:40 AM CDT): Patient states his last use was 1month ago. UDS was positive for cocaine. Alcohol abuse 10/04/2020 Assessment & Plan (10/14/2021 12:46 AM CDT): Patient denies current alcohol use. Moderate malnutrition (CMS/HCC) 09/25/2020 COPD (chronic obstructive pulmonary disease) Assessment & Plan (09/21/2018 6:38 AM CDT): Currently not in acute exacerbation. Continue monitoring Primary osteoarthritis of both knees 09/21/2018 Assessment & Plan (09/21/2018 6:36 AM CDT): Will start on Tylenol, alternate with Motrin as needed Suicidal ideation 09/21/2018 Assessment & Plan (09/21/2018 6:50 AM CDT): Patient was admitted to the geropsych unit for suicidal ideation with a plan and hallucinations. Managed by Psychiatry Will get labs to rule out secondary causes of depression Current smoker 09/21/2018 Assessment & Plan (10/14/2021 12:39 AM CDT): Patient will need to be counseled on the importance of smoking cessation. Assessment & Plan (09/21/2018 6:49 AM CDT): Start on Nicoderm patch Chronic low back pain without sciatica 8 Assessment & Plan (09/21/2018 6:48 AM CDT): Start on tylenol, alternate with motrin as needed Cerebrovascular accident (CVA) (CMS/HCC) Assessment & Plan (10/14/2021 12:45 AM CDT): H/o L MCA CVA. Patient had expressive aphasia and right sided weakness from review of EMR. Unclear what residual deficits patient had. Patient also reports being admitted 1 month ago at [facility] for CVA. Will need to obtain records. Continue ASA/plavix and lipitor. May need MRI brain if deficits are new and not improved with IVFs/ABx. Resolved Problems Problem Noted Date Diagnosed Date Resolved Date Expressive aphasia 10/14/2021 2 Assessment & Plan (10/14/2021 12:39 AM CDT): Need to confirm if this is new vs old with who will be in tomorrow. Patient noted to have had expressive aphasia during prior admission. If new and persistent, then may need MRI to r/o new CVA. DONOR RECRUITMENT MANAGER consulted. Will need to obtain records from patient's admission 1month ago at [facility]. Immunizations Name Administration Dates Next Due Tdap 01/02/2019,12/08/2016 Surgical History Surgery Date Site/Laterality Comments JOINT REPLACEMENT Left knee BACK SURGERY Medical History Medical History Date Comments Arthritis COPD (chronic obstructive pulmonary disease) ([facility]) St[facility] ([facility] Social History Tobacco Use Types Packs/Day Years Used Date Smoking Tobacco: Every Day Cigarettes Smokeless Tobacco: Never Alcohol Use Standard Drinks/Week Comments No 0 (1 standard drink = 0.6 oz pur e alcohol) AUDIT-C Answer Date Recorded Q1: How often do you have a drink containing alc ohol? Never 10/04/2020 Average Number of Drinks Not on file 021 Q3: How often do you have si x or more drinks on one occasion? Never 10/04/2020 Personal Safety Answer Date Recorded Have you ever been in or are you currently in a harmful physical or emotional relationship or is someone making you feel afraid or unsafe? Denies 02/13/2024 Sex and Gender Information Value Date Recorded Sex Assigned at Not on file Legal Sex Male 7:03 PM SENIOR RESEARCH CONSULTANT Gender Identity Not on file Sexual Orientation Not on file Obstetrics History Last Filed Vital Signs Vital Sign Reading Time Taken Comments Blood Pressure 151/65 02/13/2024 3:17 PM CDT Pulse 79 02/13/2024 3:17 PM CDT Temperature 36.6 ??C (97.9 ??F) 02/13/2024 3:15 PM CD T Respiratory Rate 14 02/13/2024 3:17 PM CDT Oxygen Saturation 99% 02/13/2024 3:17 PM CDT Inhaled Oxygen Concentration - - Weight 74.8 kg (165 lb) 02/13/2024 3:17 PM CDT Height 167.6 cm (5' 6 ) 02/13/2024 3:17 PM CDT Body Mass Index 26.63 02/13/2024 3:17 PM CDT Plan of Treatment Health Maintenance Due Date Last Done Comments Colon Cancer Screening-Colonoscopy 1950 Depression Screening 1950 Fall Risk Assessment 1950 Hepatitis C Screening 1950 Prostate Cancer Screening-PSA 1950 Pneumococcal vaccine 65+ (1 of 2 - PCV) 12/13/1957 Hepatitis B Screening 12/13/1969 Zoster Vaccine (1 of 2) 12/13/2001 Well Visit 65+ 12/13/2016 Covid-19 Vaccine (2 - season) 01/01/202407/2021 Influenza Vaccine (#1) 2024 05/24/2018 DTaP/Tdap/Td Vaccine (4 - Td or Tdap) 06/02/2030 06/02/2020, 01/02/2019, 12/08/2016 Abdominal Aortic Aneurysm (A AA) Screen Completed 05/24/2020, 02/14/2017, 12/25/2016 Procedures Procedure Name Priority Date/Time Associated Diagnosis Comments CT ABDOMEN PELVIS W CONTRAST ED 05/24/2020 6:38 PM SENIOR RESEARCH CONSULTANT from Last 3 Months or Most Recently Relevant to Health Maintenance Results * CT Abdomen Pelvis W Contrast (05/24/2020 6:38 PM SENIOR RESEARCH CONSULTANT) Anatomical Region Laterality Modality Body N/A Computed Tomogra phy 05/24/2020 6:28 PM SENIOR RESEARCH CONSULTANT Impressions 05/24/2020 6:52 PM SENIOR RESEARCH CONSULTANT ?? No acute inflammatory process is noted. No cholecystitis. ??Normal appendix. Diverticulosis without diverticulitis THIS IS AN ELECTRONICALLY VERIFIED FINAL REPORT 05/24/2020 6:48 PM - Electronically signed by Alvino Cruz M.D. NC: JESSIE D: ??05/24/2020 6:48 PM T: ??05/24/2020 6:48 PM Report ID: [id number] Reading Location: ??[id number] Narrative 05/24/2020 6:52 PM SENIOR RESEARCH CONSULTANT [facility] ?Imaging Result Name: BENITO CISSE ? Ordering Phys: TRI GÓMEZ Age: 69 ?Date of : 1950 ? Accession Number: [id number] Date of Service: 05/24/2020 ??Gender: M EXAM DESCRIPTION: ?? CT ABDOMEN PELVIS W CONTRAST REASON FOR STUDY: ?? Diffuse abd pain for the last month, burning sensation after eating. 100ml of Optiray 320, 20g iv rt acDuration: 1 month TECHNIQUE: ??CT scan of the abdomen and pelvis performed with intravenous and without oral contrast using helical scanning technique with dynamic intravenous contrast injection. Reconstructed coronal and sagittal MPR images reviewed. All images stored on PACS. Automated exposure control was used as a dose optimization technique for this examination. CONTRAST TYPE/DOSE: ?? 100 of optiray 320 injected via ??rt ac COMPARISON: ?? 08/09/2018 ??LOWER CHEST: ??No significant pulmonary abnormalities. No effusion. LIVER: ??Normal size. ??No identified cystic or solid masses. GALLBLADDER: ??No stones identified. No wall thickening or inflammatory changes. BILE DUCTS: ??No intrahepatic or extrahepatic ductal dilatation. SPLEEN: ??Normal size. ??No focal lesions. PANCREAS: ??No identified cystic or solid masses. No significant calcifications. No adjacent inflammation or peripancreatic fluid collections. Pancreatic duct not dilated. ADRENALS: ??Normal. KIDNEYS/URINARY TRACT: ??Cysts are noted in the kidney which are statistically benign. No visualized stone or hydronephrosis. ??Urinary bladder is unremarkable. GI: ??No dilated bowel loops. No obvious wall thickening. Normal appendix. Scattered diverticular disease without diverticulitis. PERITONEUM: ??No ascites or free air. RETROPERITONEUM: ??No mass or adenopathy. REPRODUCTIVE: ??Enlarged prostate gland VASCULATURE: ??Atherosclerotic disease in the aorta and iliacs MUSCULOSKELETAL: ??No significant abnormality. OTHER: ??No other abnormality. Procedure Note Alvino Cruz MD - 05/24/2020 [facility] Imaging Result Name: BENITO CISSE Ordering Phys: TRI GÓMEZ Age: 69 Date of : 1950 Accession Number: [id number] Date of Service: 05/24/2020 Gender: M EXAM DESCRIPTION: CT ABDOMEN PELVIS W CONTRAST REASON FOR STUDY: Diffuse abd pain for the last month, burningsensation after eating. 100ml of Optiray 320, 20g iv rt acDuration: 1 month TECHNIQUE: CT scan of the abdomen and pelvis performed with intravenousand without oral contrast using helical scanning technique with dynamic intravenous contrast injection. Reconstructed coronal and sagittal MPRimages reviewed. All images stored on PACS. Automated exposure control was used as a dose optimization technique forthis examination. CONTRAST TYPE/DOSE: 100 of optiray 320 injected via rt ac COMPARISON: 08/09/2018 LOWER CHEST: No significant pulmonary abnormalities. No effusion. LIVER: Normal size. No identified cystic or solid masses. GALLBLADDER: No stones identified. No wall thickening or inflammatorychanges. BILE DUCTS: No intrahepatic or extrahepatic ductal dilatation. SPLEEN: Normal size. No focal lesions. PANCREAS: No identified cystic or solid masses. No significant calcifications. No adjacent inflammation or peripancreatic fluidcollections. Pancreatic duct not dilated. ADRENALS: Normal. KIDNEYS/URINARY TRACT: Cysts are noted in the kidney which arestatistically benign. No visualized stone or hydronephrosis. Urinary bladder is unremarkable. GI: No dilated bowel loops. No obvious wall thickening. Normalappendix. Scattered diverticular disease without diverticulitis. PERITONEUM: No ascites or free air. RETROPERITONEUM: No mass or adenopathy. REPRODUCTIVE: Enlarged prostate gland VASCULATURE: Atherosclerotic disease in the aorta and iliacs MUSCULOSKELETAL: No significant abnormality. OTHER: No other abnormality. IMPRESSION: No acute inflammatory process is noted. No cholecystitis. Normal appendix. Diverticulosis without diverticulitis THIS IS AN ELECTRONICALLY VERIFIED FINAL REPORT 05/24/2020 6:48 PM - Electronically signed by Alvino Cruz M.D. NC: JESSIE Report ID: [id number] Reading Location: [id number] Tri Gómez MD IMG CT PROCEDURES F inal Result from Last 3 Months or Most Recently Relevant to Health Maintenance Insurance [facility] [employer] MEDICARE HMO MEDICARE [employer] MEDICARE HMO [facility] MEDICARE GENERIC RISK OTHER [facility] [place] [employer] MEDICARE HMO Advance Directives For more information, please contact: [phone] * Full Code (Latest Code Status on File) Date Activated Date Inactivated Comments 10/14/2021 12:32 AM 10/15/2021 5:58 PM * Full Code Date Activated Date Inactivated Comments 10/05/2020 7:06 AM 10/08/2020 8:25 PM * Full Code Date Activated Date Inactivated Comments 10/04/2020 8:32 AM 10/05/2020 7:06 AM * Full Code Date Activated Date Inactivated Comments 09/23/2020 4:47 PM 09/30/2020 6:11 PM * Full Code Date Activated Date Inactivated Comments 09/20/2018 11:22 AM 09/24/2018 5:51 PM Care Teams Frame Pulley Mortising Machine Operator Relationship Specialty [place] [id number] [address] [facility] [id number] [place] [address] PCP - General Family Medicine 05/24/20 Miscellaneous, Not In File 08/20/18
--- OUTSIDE RECORDS SUMMARY | 2024-06-05 15:53 | XMS_ITS | Referral Summary ---
Author Organization [facility] Address [address] [place] [address] Care Team Providers Care Patient Experience Coordinator Name Role Phone Miscellaneous, Not In File [...] with motrin as needed Cerebrovascular accident (CVA) ([facility]/HCC) Assessment & Plan (10/14/2021 12:45 AM CDT): H/o L MCA CVA. Patient had expressive aphasia and right sided weakness from review of EMR. Unclear what residual deficits patient had. Patient also reports being admitted 1 month ago at [place] for CVA. Will need to obtain records. [...] may need MRI to r/o new CVA. ADVERTISING OPERATIONS MANAGER consulted. Will need to obtain records from patient's admission 1month ago at [place]. Immunizations Name Administration Dates Next Due Tdap 01/02/2019,12/08/2016 Social History Tobacco Use Types Packs/Day Years [...] on file Legal Sex Male 7:03 PM PATIENT SCHEDULING MANAGER Gender Identity Not on file Sexual Orientation [...] 02/13/2024 3:17 PM CDT Plan of Treatment Not on file Procedures Procedure Name Priority Date/Time Associated Diagnosis Comments CT ABDOMEN PELVIS W CONTRAST ED 05/24/2020 6:38 PM PATIENT SCHEDULING MANAGER from Last 3 Months or Most Recently Relevant to Health Maintenance Results * CT Abdomen Pelvis W Contrast (05/24/2020 6:38 PM PATIENT SCHEDULING MANAGER) Anatomical Region Laterality Modality Body N/A Computed Tomogra phy 05/24/2020 6:28 PM PATIENT SCHEDULING MANAGER Impressions 05/24/2020 6:52 PM PATIENT SCHEDULING MANAGER ?? No acute inflammatory process is noted. No cholecystitis. ??Normal appendix. Diverticulosis without diverticulitis THIS IS AN ELECTRONICALLY VERIFIED FINAL REPORT 05/24/2020 6:48 PM - Electronically signed by Alvino Cruz M.D. NC: JESSIE D: ??05/24/2020 6:48 PM T: ??05/24/2020 6:48 PM Report ID: [id number] Reading Location: ??[id number] Narrative 05/24/2020 6:52 PM PATIENT SCHEDULING MANAGER [facility] ?Imaging Result Name: BENITO CISSE ? Ordering Phys: ANN GÓMEZ Age: 69 ?Date of : 1950 ? Accession Number: [id number] Date of Service: 05/24/2020 ??Gender: M EXAM [...] Procedure Note Alvino Cruz MD - 05/24/2020 [facility] Imaging Result Name: BENITO CISSE Ordering Phys: ANN GÓMEZ Age: 69 Date of : 1950 Accession Number: [id number] Date of Service: 05/24/2020 Gender: M EXAM [...] Alvino Cruz M.D. NC: JESSIE Report ID: [id number] Reading Location: [id number] Ann Gómez MD IMG CT PROCEDURES F inal Result from Last 3 Months or Most Recently Relevant to Health Maintenance Insurance [facility] MEDIC[facility] HMO MEDICARE [facility] HMO [facility] MEDICARE GENERIC RISK OTHER [facility] [place] [employer] MEDICARE HMO Advance Directives For more information, please contact: [phone] * Full Code (Latest Code Status on [...] 11:22 AM 09/24/2018 5:51 PM Care Teams Patient Experience Coordinator Relationship Specialty [place] [id number] [place] [address] PCP - General Family Medicine 05/24/20 Miscellaneous, Not In File 08/20/18
--- OUTSIDE RECORDS SUMMARY | 2024-06-05 15:53 | XMS_ITS | Encounter Summary ---
Author Organization [facility] Address [address] [place] [address] Phone Care Team Providers Care Nurse Informaticist Name Role Phone Yaw Sol MD Primary Care Provider [phone] Provider, Unknown Primary Care Provider Unavaila ble Provider, None Primary Care Provider Unavailabl e Provider, Unknown Unavailable Unavailable Lanie Whitaker WATERPROOF MATERIAL FOLDER Unavailable Unavailab le Reason for Visit * Reason Comments Medication Refill Encounter Details Date Type Department Care Team (Late st Contact Info) Description 10/28/2021 Refill [facility] - [facility] [address] [place] [id number] Yaw Sol MD [address] [place] [address] Medication Refill Social History Tobacco Use Types Packs/Day Years Used Date Smoking Tobacco: Every Day Cigarettes 1 25 Smokeless Tobacco: Never Alcohol Use Standard Drinks/Week [...] on file Sexual Orientation Not on file documented as of this encounter Miscellaneous Notes * Telephone Encounter - Sehr, Kristina L, RN - 10/29/2021 1:10 PM CDT Medication failed the protocol, provider to review and approve the medication order if appropriate. Requested Prescriptions Pending Prescriptions Disp Refills atorvastatin (LIPITOR) 40 MG Tablet [Pharmacy Med Name: ATORVASTATIN 40 MG TABLET] 30 Tablet 5 Sig: TAKE 1 TABLET BY MOUTH EVERY DAY Hmg CoA Reductase Inhibitors Protocol Failed - 10/28/2021 4:23 PM Failed - Lipid panel in past 12 months No results found for: LDL, HDLCHOLESTE, CHOLESTEROL, TRIGLYCRIDES, VLDL, CHDL, HDLNON Passed - Visit with relevant provider in past 12 months or upcoming 90 days Recent Visits Date Type Provider Dept 05/18/21 Office Visit Yaw Sol MD [facility] 03/20/21 Office Visit Yaw Sol MD [facility] 01/26/21 Office Visit Yaw Sol MD [facility] 12/10/20 Office Visit Yaw Sol MD [facility] 11/12/20 Office Visit Darek Salamanca, PET CARE WORKER, PRODUCT DEVELOPMENT [facility] Showing recent visits within past 365 days and meeting all other requirements Future Appointments No visits were found meeting these conditions. Showing future appointments within next 90 days and meeting all other requirements [facility] Aspirin Adult Low Dose 81 MG Chewable Tablet [Pharmacy Med Name: [facility] ASPIRIN 81 MG CHEWABLE TAB] 30 Tablet 5 Sig: TAKE 1 TABLET BY MOUTH EVERY DAY AT 8AM Platelet Inhibitors Protocol Failed - 10/28/2021 4:23 PM Failed - CBC on record in the past year WBC Date Value Ref Range Status 03/03/2019 8.23 4.00 - 12.00 10(3)/mcL Final WBC ESTERASE Date Value Ref Range Status 03/04/2019 25 /uL (A) Negative Final RBC Date Value Ref Range Status 03/03/2019 4.40 4.40 - 5.80 10(6)/mcL Final HEMATOCRIT (HCT) Date Value Ref Range Status 03/03/2019 41.0 38.0 - 50.0 % Final HEMOGLOBIN (HGB) Date Value Ref Range Status 03/03/2019 13.1 13.0 - 16.5 g/dL Final MCV Date Value Ref Range Status 03/03/2019 93.2 82.0 - 96.0 fL Final MCH Date Value Ref Range Status 03/03/2019 29.8 26.0 - 32.0 pg Final MCHC Date Value Ref Range Status 03/03/2019 32.0 31.0 - 36.0 g/dL Final Passed - Visit with relevant provider in past year or upcoming 90 days Recent Visits Date Type Provider Dept 05/18/21 Office Visit Yaw Sol MD [facility] 03/20/21 Office Visit Yaw Sol MD [facility] 01/26/21 Office Visit Yaw Sol MD [facility] 12/10/20 Office Visit Yaw Sol MD [facility] 11/12/20 Office Visit Darek Salamanca APRN, PRODUCT DEVELOPMENT [facility] [place] Showing recent visits within past 365 days and meeting all other requirements Future Appointments No visits were found meeting these conditions. Showing future appointments within next 90 days and meeting all other requirements documented in this encounter Plan of Treatment Not on file documented as of this encounter Visit Diagnoses Not on filedocumented in this encounter Additional Health Concerns Infection Onset Date Last Indicated Resolved Time COVID - 19 12/06/2022 12/06/2022 12/06/2022 5:51 PM CDT Respiratory Rule-Out 12/06/2022 12/06/2022 023 1:44 PM CDT Assessment Noted Time PHQ-9 Depression Total Score: 1 01/27/20 21 4:01 PM CDT documented as of this encounter Care Teams Nurse Informaticist Relationship Specialty Start Date End Date Yaw Sol MD PCP - General Family Medicine 06/18/20 10/18/22 Provider, Unknown UNKNOWN PCP - General 10/23/22 04/10/23 Provider, None [place] PCP - General 04/11/23 Provider, Unknown UNKNOWN 04/11/23 Lanie Whitaker LSW [place] Hatchery Employee 01/26/21 12/17/21 documented as of this encounter
--- OUTSIDE RECORDS SUMMARY | 2024-06-05 15:53 | XMS_ITS | Patient Health Summary ---
Author Organization [facility] Address [address] [place] [address] Care Team Providers Care Pst Manager Name Role Phone Unavailable Primary Care Provider Unavailabl e Note from [facility],non-owned Affiliates and Associated Physician Practices is amultiple site organization consisting of ambulatory clinics and hospital sitesin [place], [place], [place] and [place]. This disclosure is being madepursuant to the Care Everywhere program and may not contain all information available regarding this patient. Last updated 18.[facility] Allergies No known active allergies Medications Be [...] Comments Blood Pressure 116/62 06/06/2019 7:10 AM MANAGEMENT LEAD Pulse 61 06/06/2019 7:10 AM MANAGEMENT LEAD Temperature 36.1 ??C (96.9 ??F) 06/06/2019 7:10 AM CS T Respiratory Rate 20 06/06/2019 10:14 AM MANAGEMENT LEAD Oxygen Saturation 99% 06/06/2019 7:10 AM MANAGEMENT LEAD Inhaled Oxygen Concentration - - Weight 77.1 kg (170 lb) 06/06/2019 7:10 AM MANAGEMENT LEAD Height 167.6 cm (5' 6 ) 06/06/2019 7:10 AM MANAGEMENT LEAD Body Mass Index 27.44 06/06/2019 7:10 AM MANAGEMENT LEAD Procedures * NE IRIDOTOMY LT(Performed 06/06/2019) Performed for Angle-closure glaucoma, secondary, left, stage unspecified Results * NE IRIDOTOMY LT (06/06/2019 3:38 PM MANAGEMENT LEAD) Narrative Shayan Lamb MD - 06/06/2019 3:38 PM MANAGEMENT LEAD Audelia Beaulieu MD ? 06/10/2019 ??4:14 PM Laser Peripheral Iridotomy Procedure Note The patient was consented. After topical anesthesia, YAG laser was applied as follows: Size:50 microns, superotemporally Total spots:5 Power: 4.0 mJ x2, total 20 mJ Complications: none Patient tolerated the procedure well. Patient was given one drop of iopidine and simbrinza post procedure and to start pred forte four times daily (sample given) Dr. Lamb was present throughout the procedure. Audelia Beaulieu MD 06/06/2019 3:39 PM Audelia Beaulieu MD PROCEDURE/MINOR SURGICAL ORDERABLES
--- OUTSIDE RECORDS SUMMARY | 2024-06-05 15:53 | XMS_ITS | Encounter Summary ---
Author Organization [facility] Address [address] [place] [address] Phone Care Team Providers Care Race Relations Professor Name Role Phone Yaw Sol MD Primary Care Provider [phone] Provider, Unknown Primary Care Provider Unavaila ble Provider, None Primary Care Provider Unavailabl e Provider, Unknown Unavailable Unavailable Reason for Visit * Reason Comments Medication Refill Encounter Details Date Type Department Care Team (Late st Contact Info) Description 08/27/2022 Refill [facility] [address] [place] [phone] Yaw Sol MD [address] [place] [address] Medication Refill Social History Tobacco Use Types [...] encounter Miscellaneous Notes * Telephone Encounter - Kristina Cotton, RN - 08/27/2022 8:37 AM CDT Follow 09/10/22 Medication failed the protocol, provider to review and approve the medication order if appropriate. Requested Prescriptions Pending Prescriptions Disp Refills atorvastatin (LIPITOR) 40 MG Tablet [Pharmacy Med Name: ATORVASTATIN 40 MG TABLET] 30 Tablet 0 Sig: Take 1 Tablet by mouth daily. Only 30 days and no further scripts until seen in office with provider Hmg CoA Reductase Inhibitors Protocol Failed - 08/27/2022 1:17 AM Failed - Lipid panel in past 12 months No results found for: LDL, HDLCHOLESTE, CHOLESTEROL, TRIGLYCRIDES, VLDL, CHDL, HDLNON Passed - Visit with relevant provider in past 12 months or upcoming 90 days Recent Visits No visits were found meeting these conditions. Showing recent visits within past 365 days and meeting all other requirements Future Appointments Date Type Provider Dept 09/10/[address] [facility] Showing future appointments within next 90 days [...] documented as of this encounter Care Teams Race Relations Professor Relationship Specialty Start Date End Date Yaw Sol MD PCP - General Family Medicine 06/18/20 10/18/22 Provider, Unknown UNKNOWN PCP - General 10/23/22 04/10/23 Provider, None [place] PCP - General 04/11/23 Provider, Unknown UNKNOWN 04/11/23 documented as of this encounter
--- OUTSIDE RECORDS SUMMARY | 2024-06-05 15:53 | XMS_ITS | Encounter Summary ---
Author Organization [facility] Address [address] [place] [address] Phone Care Team Providers Care Youth Manager Name Role Phone Yaw Sol MD Primary Care Provider [phone] Provider, Unknown Primary Care Provider Unavaila ble Provider, None Primary Care Provider Unavailabl e Provider, Unknown Unavailable Unavailable Lanie Whitaker Unavailable Unavailab le Reason for Visit * Reason Comments Medication Refill Encounter Details Date Type Department Care Team (Late st Contact Info) Description 11/27/2021 Refill [facility] - Family Medicine [facility] [address]2 [place] [phone] Darek Salamanca, ASSISTANT PROFESSOR OF PHYSICS, FLOOR TECHNICIAN [address] [address] Medication Refill Social History Tobacco Use Types [...] Miscellaneous Notes * Telephone Encounter - Kristina Cotton RN - 11/30/2021 8:37 AM CDT Medication failed the protocol, provider to review and approve the medication order if appropriate. Requested Prescriptions Pending Prescriptions Disp Refills thiamine (VITAMIN B1) 100 MG Tablet [Pharmacy Med Name: VITAMIN B-1 100 MG TABLET] 30 Tablet 5 Sig: TAKE 1 TABLET BY MOUTH EVERY DAY Vitamin Supplements (Adult) Protocol Failed - 11/27/2021 6:45 PM Failed - Active on medication list Passed - Visit with relevant provider in past 12 months or upcoming 90 days Recent Visits Date Type Provider Dept 05/18/21 Office Visit Yaw Sol MD [facility] 03/20/21 Office Visit Yaw Sol MD [facility] 01/26/21 Office Visit Yaw Sol MD [facility] 12/10/20 Office Visit Yaw Sol MD [facility] Showing recent visits within past 365 days [...] documented as of this encounter Care Teams Youth Manager Relationship Specialty Start Date End Date Yaw Sol MD PCP - General Family Medicine 06/18/20 10/18/22 Provider, Unknown UNKNOWN PCP - General 10/23/22 04/10/23 Provider, None [place] PCP - General 04/11/23 Provider, Unknown UNKNOWN 04/11/23 Lanie Whitaker LSW [place] [employer] 01/26/21 12/17/21 documented as of this encounter
--- OUTSIDE RECORDS SUMMARY | 2024-06-05 15:53 | XMS_ITS | Clinical Summary ---
Author Organization [facility] Address [address] [place] [address] Care Team Providers Care Hematology Nurse Name Role Phone Unavailable Primary Care Provider Unavailabl e Source Comments [facility],non-owned Affiliates and Associated Physician Practices is amultiple site organization consisting of ambulatory clinics and hospital sitesin [place], [place], [place] and [place]. This disclosure is being madepursuant to the Care Everywhere program and may not contain all information available regarding this patient. Last updated 18.[facility] Allergies No known active allergies Medications Be aware that medications may not be up to date on this document. Always verify current medications with the patient. No known medications Active Problems No known active problems Family History Medical History Relation Name Comments Diabetes - Type 2 Mother Hypertension Mother Eczema Neg Hx Macular Degeneration Neg Hx Relation Name Status Comments Mother Social History [...] Comments Blood Pressure 116/62 06/06/2019 7:10 AM LEADERSHIP DEVELOPMENT INSTRUCTOR Pulse 61 06/06/2019 7:10 AM LEADERSHIP DEVELOPMENT INSTRUCTOR Temperature 36.1 ??C (96.9 ??F) 06/06/2019 7:10 AM CS T Respiratory Rate 20 06/06/2019 10:14 AM LEADERSHIP DEVELOPMENT INSTRUCTOR Oxygen Saturation 99% 06/06/2019 7:10 AM LEADERSHIP DEVELOPMENT INSTRUCTOR Inhaled Oxygen Concentration - - Weight 77.1 kg (170 lb) 06/06/2019 7:10 AM LEADERSHIP DEVELOPMENT INSTRUCTOR Height 167.6 cm (5' 6 ) 06/06/2019 7:10 AM LEADERSHIP DEVELOPMENT INSTRUCTOR Body Mass Index 27.44 06/06/2019 7:10 AM LEADERSHIP DEVELOPMENT INSTRUCTOR Plan of Treatment Health Maintenance Due Date Last Done Comments COLOGUARD (AGES 45-75) - COL ON CA SCREENING 1950 COLON MONITORING 1950 COLONOSCOPY - COLON CA SCREENING 1950 CT COLONOGRAPHY - COLON CA SCREENING 1950 Colorectal Cancer Screening 1950 FIT - COLON CA SCREENING 1950 FLEX SIG - COLON CA SCREENING 1950 LIPID TESTING 1950 HEPATITIS C SCREENING 12/09/1969 DTAP/TDAP/TD VACCINES (1 - Tdap) 12/13/1970 PNEUMOCOCCAL VACCINE 50+ (1 of 2 - PCV) 12/13/1970 ZOSTER VACCINE (1 of 2) 12/13/2001 AAA SCREENING 12/13/2016 SCREENING FOR DIABETES 06/06/2019 COVID-19 VACCINE ( - 2023-2 5 season) 2024 INFLUENZA VACCINE (#1) 2024 DEPRESSION SCREENING 05/02/2024 MEDICARE AWV ? CALENDAR YEAR 2024 Respiratory Syncytial Virus (RSV) Vaccine Pt: or over 60 yrs (1 - 1-dose 75+ series) 12/13/2026 HEPATITIS B VACCINE Aged Out No longe r eligible based on patient's age to complete this topic HIB VACCINE Aged Out No longer eligi ble based on patient's age to complete this topic HPV VACCINE Aged Out No longer eligi ble based on patient's age to complete this topic MENINGOCOCCAL (Group B) VACCINE Aged Out No longer eligible based on patient's age to complete this topic MENINGOCOCCAL VACCINE Aged Out No shante vashti eligible based on patient's age to complete this topic
--- OUTSIDE RECORDS SUMMARY | 2024-06-05 15:53 | XMS_ITS | Encounter Summary ---
Author Organization [facility] Address [address] [place] [address] Phone Care Team Providers Care Tool Machine Setup Operator Name Role Phone Yaw Sol MD Primary Care Provider [phone] Provider, Unknown Primary Care Provider Unavaila ble Provider, None Primary Care Provider Unavailabl e Provider, Unknown Unavailable Unavailable Reason for Visit * Reason Comments Medication Refill Encounter Details Date Type Department Care Team (Late st Contact Info) Description 06/25/2022 Refill [facility] [address] [place] [phone] Yaw Sol MD [address] [place] [address] Medication Refill Social History Tobacco Use Types [...] encounter Miscellaneous Notes * Telephone Encounter - Na Bustamante RN - 06/28/2022 8:21 AM SENIOR DRAFTER Patient needs appointment. Medication failed the protocol, provider to review and approve the medication order if appropriate. Requested Prescriptions Pending Prescriptions Disp Refills clopidogrel (PLAVIX) 75 MG Tablet [Pharmacy Med Name: CLOPIDOGREL 75 MG TABLET] 90 Tablet 3 Sig: TAKE 1 TABLET BY MOUTH EVERY DAY Plavix Protocol Failed - 06/25/2022 7:06 PM Failed - CBC on record in past 12 months WBC Date Value Ref Range Status 03/03/2019 [...] 03/03/2019 32.0 31.0 - 36.0 g/dL Final Failed - Visit with relevant provider in past 12 months or upcoming 90 days Recent Visits No visits were found meeting these conditions. Showing recent visits within past 365 days and meeting all other requirements Future Appointments No visits were found meeting these conditions. Showing future appointments within next 90 days and meeting all other requirements OR DRAFTER documented in this encounter Plan of Treatment Not on file documented as of this encounter Visit Diagnoses Diagnosis Cerebrovascular accident (CVA) due to stenosis of middle cerebral artery, unspecified blood vessel laterality (HCC) documented in this encounter Additional Health Concerns Infection Onset Date Last Indicated Resolved Time COVID - 19 12/06/2022 12/06/2022 12/06/2022 5:51 PM CDT Respiratory Rule-Out 12/06/2022 12/06/2022 023 1:44 PM CDT Assessment Noted Time PHQ-9 Depression Total Score: 1 01/27/20 21 4:01 PM CDT documented as of this encounter Care Teams Tool Machine Setup Operator Relationship Specialty Start Date End Date Yaw Sol MD PCP - General Family Medicine 06/18/20 10/18/22 Provider, Unknown UNKNOWN PCP - General 10/23/22 04/10/23 Provider, None [place] PCP - General 04/11/23 Provider, Unknown UNKNOWN 04/11/23 documented as of this encounter
--- OUTSIDE RECORDS SUMMARY | 2024-06-05 15:54 | XMS_ITS | Encounter Summary ---
Author Organization [facility] Address [address] [place] [address] Phone Care Team Providers Care Recycling Manager Name Role Phone Yaw Sol MD Primary Care Provider [phone] Provider, Unknown Primary Care Provider Unavaila ble Provider, None Primary Care Provider Unavailabl e Provider, Unknown Unavailable Unavailable Reason for Visit * Reason Comments Medication Refill Encounter Details Date Type Department Care Team (Late st Contact Info) Description 07/02/2022 Refill [facility] [address]2 [place] [phone] Yaw Sol MD [address] [place] [address] Medication Refill Social History Tobacco Use Types [...] encounter Miscellaneous Notes * Telephone Encounter - Chey Crane RMA - 07/05/2022 9:19 AM FEDERAL LAW CLERK Mailed letter RAL LAW CLERK * Telephone Encounter - Kristina Cotton RN - 07/02/2022 5:19 PM CST Needs OV with PCP RAL LAW CLERK * Telephone Encounter - Kristina Cotton RN - 07/02/2022 5:19 PM CST Medication failed the protocol, provider to review and approve the medication order if appropriate. Requested Prescriptions Pending Prescriptions Disp Refills atorvastatin (LIPITOR) 40 MG Tablet [Pharmacy Med Name: ATORVASTATIN 40 MG TABLET] 30 Tablet 0 Sig: TAKE 1 TABLET BY MOUTH EVERY DAY Hmg CoA Reductase Inhibitors Protocol Failed - 07/02/2022 5:19 PM Failed - Visit with relevant provider in past 12 months or upcoming 90 days Recent Visits No visits were found meeting these conditions. Showing recent visits within past 365 days and meeting all other requirements Future Appointments No visits were found meeting these conditions. Showing future appointments within next 90 days and meeting all other requirements Failed - Lipid panel in past 12 months No results found for: LDL, HDLCHOLESTE, CHOLESTEROL, TRIGLYCRIDES, VLDL, CHDL, HDLNON RAL LAW CLERK documented in this encounter Plan of Treatment [...] documented as of this encounter Care Teams Recycling Manager Relationship Specialty Start Date End Date Yaw Sol MD PCP - General Family Medicine 06/18/20 10/18/22 Provider, Unknown UNKNOWN PCP - General 10/23/22 04/10/23 Provider, None [place] PCP - General 04/11/23 Provider, Unknown UNKNOWN 04/11/23 documented as of this encounter
--- OUTSIDE RECORDS SUMMARY | 2024-06-05 15:54 | XMS_ITS | Encounter Summary ---
Author Organization [facility] Address [address] [place] [address] Phone Care Team Providers Care Quality Assurance Qa Lab Analyst Name Role Phone Yaw Sol MD Primary Care Provider [phone] Provider, Unknown Primary Care Provider Unavaila ble Provider, None Primary Care Provider Unavailabl e Provider, Unknown Unavailable Unavailable Reason for Visit * Reason Comments Medication Refill Encounter Details Date Type Department Care Team (Late st Contact Info) Description 07/31/2022 Refill [facility] Family Medicine [facility] [address]2 [place] [phone] Yaw Sol MD [address] [place] [address] Medication Refill Social History Tobacco Use Types [...] Telephone Encounter - Chey Crane RMA - 08/05/2022 1:42 PM CDT Mailed letter to schedule * Telephone Encounter - Chey Crane RMA - 08/03/2022 2:53 PM CDT LVM to schedule * Telephone Encounter - Chey Crane RMA - 08/02/2022 10:32 AM CDT Lvm * Telephone Encounter - Na Bustamante RN - 08/02/2022 8:20 AM CDT Patient needs appointment. documented in this encounter Plan of Treatment [...] documented as of this encounter Care Teams Quality Assurance Qa Lab Analyst Relationship Specialty Start Date End Date Yaw Sol MD PCP - General Family Medicine 06/18/20 10/18/22 Provider, Unknown UNKNOWN PCP - General 10/23/22 04/10/23 Provider, None [place] PCP - General 04/11/23 Provider, Unknown UNKNOWN 04/11/23 documented as of this encounter
[2024-06-05 18:10] VITALS: BP 121/57; PULSE 79; RESP 18; TEMP 36.8; O2SAT 100
--- NOTE | 2024-06-05 20:45 | PC.NURSE ---
No answer when called for room.
--- NOTE | 2024-06-05 21:12 | ED.LOWEXIN ---
HPI - Extremity Injury (Lower) General Chief Complaint: Extremity Injury, Lower Stated Complaint: Dropped something on right foot Time Seen by Provider: 06/05/24 20:56 Source: patient Mode of arrival: ambulatory Limitations: no limitations History of Present Illness HPI Narrative: This is a 73-year-old male, who presents to the emergency department complaining of right foot pain for the past week. Patient states 1 week ago he accidentally dropped a frozen chicken on the right great toe. He complains of dull pain rated 6/10. He has no other complaints at this time. Related Data Home Medications ?Medication ?Instructions ?Recorded ?Confirmed ?Last Taken ?Type naproxen 500 mg tablet 500 mg PO BID PRN Pain (Scale 12/01/23 12/01/23 Unknown History Score 1-3) Allergies Allergy/AdvReac Type Severity Reaction Status Date / Time No Known Allergies Allergy Verified 03/20/24 00:43 Review of Systems Review of Systems: All systems reviewed & are unremarkable except as noted in HPI and below PMFSH Past Medical History Medical History Cocaine abuse Tobacco abuse Normocytic anemia History of depression History of anxiety History of CHF (congestive heart failure) Arthritis Surgical History Surgical History History of left knee replacement Social History Social History Smoking packs per day: 1 Smoking cigarettes per day: 20.0 Smoking status: Current every day smoker Alcohol intake: never Substance use: current Substance use type: crack/cocaine Last use: POSITIVE LABS ON ADMISSION Do You Feel Safe in your Home?: Yes Lack of Transportation: YES Lack of Food: Sometimes True Current Housing: I Do Not Have Housing Concerned About Future Housing: YES Difficulty Paying Gas/Electric Bills: YES Difficulty Paying for Meds: YES Currently Unemployed: YES Education: Don't Know Difficulty w/ Childcare or Family Care: No Gender identity (if verbalized by the patient): Male Spiritual care concerns: No Exam Narrative: GENERAL: Well-developed, well-nourished, and in no acute distress. HEAD: Normocephalic, atraumatic. EYES: PERRLA and EOMI. CHEST: Clear to auscultation. No respiratory distress. No wheezes rales or rhonchi HEART: Regular rate and rhythm. No murmur heard. Normal peripheral pulses. EXTREMITIES: there is no visible deformity, ecchymosis or laceration of the right foot. The right great toe is tender to palpation over the dorsal aspect without crepitus or step-off. Normal range of motion. No edema. SKIN: Warm, dry, no rash. NEURO: Alert and oriented x3. No focal deficit. Moving all 4 limbs spontaneously PSYCH: Normal mood and affect. Course Course Emergency Course: 21:15 - Xray not concerning for fracture. I suspect contusion as the cause of the patient's pain. Will discharge recommendation for NSAIDs, lidocaine patches and primary care follow-up. I discussed the findings and recommendations with The patient. Discussed return and emergency precautions including signs/symptoms of septic arthritis and neurovascular compromise. The patient voiced understanding and agreement with the plan. All questions answered to his satisfaction. Vital Signs Vital signs: Vital Signs Temperature 98.2 F 06/05/24 18:10 Pulse Rate 79 06/05/24 18:10 Respiratory Rate 18 06/05/24 18:10 Blood Pressure 121/57 L 06/05/24 18:10 Pulse Oximetry 100 06/05/24 18:10 Oxygen Delivery Room Air 06/05/24 18:10 Temperature 98.2 F 06/05/24 18:10 Pulse Rate 79 06/05/24 18:10 Respiratory Rate 18 06/05/24 18:10 Blood Pressure 121/57 L 06/05/24 18:10 Pulse Oximetry 100 06/05/24 18:10 Oxygen Delivery Room Air 06/05/24 18:10 MDM - Extremity Injury (Lower) MDM Narrative Medical decision making narrative: plan: Imaging, pain control, reassess Differential Diagnosis Differential diagnosis: Likely fracture of toe and other ( foot fracture, contusion, other) Discharge Plan Discharge Clinical Impression: Contusion of foot, right, Acute pain of right foot Patient Disposition: Home, Self-Care Condition: Stable Instructions: Antibiotic Form Additional Instructions: You were seen in the emergency department. An x-ray of the foot was not concerning for fracture or dislocation. I suspect your pain is related to contusion (bruising). I recommend Tylenol/Naproxen as needed for pain as well as lidocaine patches. If you develop fevers with rapidly spreading redness, the toe/ foot appears blue/cold, or if you have other emergent concerns for life, limb, or eyesight, return to the emergency department. Patient Language: Danish Prescriptions: New lidocaine 5 % adhesive patch,medicated 1 patch topical DAILY Qty: 15 0RF Rx Instructions: leave on most painful area for up to 12 hrs naproxen 500 mg tablet 500 mg PO BID PRN (Reason: pain) Qty: 20 0RF No Action naproxen 500 mg tablet 500 mg PO BID PRN (Reason: Pain (Scale Score 1-3)) amoxicillin-pot clavulanate 875-125 mg tablet 1 tablet PO Q12H Qty: 14 0RF prednisone 20 mg tablet 40 mg PO DAILY Qty: 10 0RF albuterol sulfate 90 mcg/actuation HFA aerosol inhaler 1 inh inhalation QID PRN (Reason: shortness of breath or wheezing) Qty: 6.7 0RF Follow-up/Referrals: UNKNOWN,DOCTOR [Primary Care Provider] - Hillary South DO [Physician] - 1 Week Time of Disposition: 21:15
[2024-06-05] MEDS: KETOROLAC 30 MG/ML VIAL (*BKC) IM (21:21)
--- OUTSIDE RECORDS SUMMARY | 2024-06-05 21:25 | XMS_ITS | Encounter Summary ---
Author Organization [facility] Address [address] [place] [address] Phone Care Team Providers Care Business Editor Name Role Phone Yaw Sol MD Primary Care Provider [phone] Provider, Unknown Primary Care Provider Unavaila ble Provider, None Primary Care Provider Unavailabl e Provider, Unknown Unavailable Unavailable Reason for Visit * Reason Comments Medication Refill Encounter Details Date Type Department Care Team (Late st Contact Info) Description 06/25/2022 Refill [facility] [address]2 [place] [phone] Yaw Sol MD [address] [place] [address] Medication Refill Social History Tobacco Use Types [...] Na Bustamante RN - 06/28/2022 8:21 AM HEALTH AND WELLNESS COORDINATOR Patient needs appointment. Medication failed the protocol, [...] 90 days and meeting all other requirements TH AND WELLNESS COORDINATOR documented in this encounter Plan of Treatment [...] documented as of this encounter Care Teams Business Editor Relationship Specialty Start Date End Date Yaw Sol MD PCP - General Family Medicine 06/18/20 10/18/22 Provider, Unknown UNKNOWN PCP - General 10/23/22 04/10/23 Provider, None [place] PCP - General 04/11/23 Provider, Unknown UNKNOWN 04/11/23 documented as of this encounter
--- OUTSIDE RECORDS SUMMARY | 2024-06-05 21:25 | XMS_ITS | Patient Health Summary ---
Author Organization [facility] [employer] Address [address] [place] [address] Care Team Providers Care In Service Educator Name Role Phone Unavailable Primary Care Provider Unavailabl e Note from [facility] [employer] [facility] [employer],non-owned Affiliates and Associated Physician Practices is amultiple site organization consisting of ambulatory clinics and hospital sitesin [place], [place], [place] and [place]. This disclosure is being madepursuant to the Care Everywhere program and may not contain all information available regarding this patient. Last updated 18.[facility] [employer] Allergies No known active allergies Medications Be [...] Comments Blood Pressure 116/62 06/06/2019 7:10 AM SPEECH LANGUAGE PATHOLOGIST TRAVEL Pulse 61 06/06/2019 7:10 AM SPEECH LANGUAGE PATHOLOGIST TRAVEL Temperature 36.1 ??C (96.9 ??F) 06/06/2019 7:10 AM CS T Respiratory Rate 20 06/06/2019 10:14 AM SPEECH LANGUAGE PATHOLOGIST TRAVEL Oxygen Saturation 99% 06/06/2019 7:10 AM SPEECH LANGUAGE PATHOLOGIST TRAVEL Inhaled Oxygen Concentration - - Weight 77.1 kg (170 lb) 06/06/2019 7:10 AM SPEECH LANGUAGE PATHOLOGIST TRAVEL Height 167.6 cm (5' 6 ) 06/06/2019 7:10 AM SPEECH LANGUAGE PATHOLOGIST TRAVEL Body Mass Index 27.44 06/06/2019 7:10 AM SPEECH LANGUAGE PATHOLOGIST TRAVEL Procedures * MS IRIDOTOMY LT(Performed 06/06/2019) Performed for Angle-closure glaucoma, secondary, left, stage unspecified Results * MS IRIDOTOMY LT (06/06/2019 3:38 PM SPEECH LANGUAGE PATHOLOGIST TRAVEL) Narrative Shayan Lamb MD - 06/06/2019 3:38 PM SPEECH LANGUAGE PATHOLOGIST TRAVEL Audelia Beaulieu MD ? 06/10/2019 ??4:14 PM [...]
--- OUTSIDE RECORDS SUMMARY | 2024-06-05 21:25 | XMS_ITS | Encounter Summary ---
Author Organization [facility] Address [address] [place] [address] Phone Care Team Providers Care Lead Front Desk Agent Name Role Phone Yaw Sol MD Primary Care Provider [phone] Provider, Unknown Primary Care Provider Unavaila ble Provider, None Primary Care Provider Unavailabl e Provider, Unknown Unavailable Unavailable Lanie Whitaker GI TECH Unavailable Unavailab le Reason for Visit * Reason Comments Medication Refill Encounter Details Date Type Department Care Team (Late st Contact Info) Description 10/28/2021 Refill [facility] - Family Medicine [facility] [address] [place] [phone] Yaw Sol MD [address] [place] [address] Medication Refill Social History Tobacco Use Types [...] [facility] 11/12/20 Office Visit Darek Salamanca, DIRECTOR REHABILITATION PROGRAM, PRODUCTION ZONE LEADER [facility] Showing recent visits within past 365 days [...] Spears 11/12/20 Office Visit Darek Salamanca APRN, PRODUCTION ZONE LEADER [facility] [place] [place] Showing recent visits within past 365 days [...] documented as of this encounter Care Teams Lead Front Desk Agent Relationship Specialty Start Date End Date Yaw Sol MD PCP - General Family Medicine 06/18/20 10/18/22 Provider, Unknown UNKNOWN PCP - General 10/23/22 04/10/23 Provider, None [place] PCP - General 04/11/23 Provider, Unknown UNKNOWN 04/11/23 Lanie Whitaker LSW [place] Blanket Weaver 01/26/21 12/17/21 documented as of this encounter
--- OUTSIDE RECORDS SUMMARY | 2024-06-05 21:25 | XMS_ITS | Referral Summary ---
Author Organization [facility] Address [address] [address] Care Team Providers Care Chemical Dependency Professional Name Role Phone Unavailable Primary Care Provider Unavailabl e Source Comments [facility] Affiliates and Associated Physician Practices is amultiple site organization consisting of ambulatory clinics and hospital sitesin [place], [place], [place] and [place]. This disclosure is being madepursuant to the Care Everywhere program and may not contain all information available regarding this patient. Last updated 18.[facility] Allergies No known active allergies Medications Be [...] Comments Blood Pressure 116/62 06/06/2019 7:10 AM SALES REPRESENTATIVE EDUCATION COURSES Pulse 61 06/06/2019 7:10 AM SALES REPRESENTATIVE EDUCATION COURSES Temperature 36.1 ??C (96.9 ??F) 06/06/2019 7:10 AM CS T Respiratory Rate 20 06/06/2019 10:14 AM SALES REPRESENTATIVE EDUCATION COURSES Oxygen Saturation 99% 06/06/2019 7:10 AM SALES REPRESENTATIVE EDUCATION COURSES Inhaled Oxygen Concentration - - Weight 77.1 kg (170 lb) 06/06/2019 7:10 AM SALES REPRESENTATIVE EDUCATION COURSES Height 167.6 cm (5' 6 ) 06/06/2019 7:10 AM SALES REPRESENTATIVE EDUCATION COURSES Body Mass Index 27.44 06/06/2019 7:10 AM SALES REPRESENTATIVE EDUCATION COURSES Plan of Treatment Not on file
--- OUTSIDE RECORDS SUMMARY | 2024-06-05 21:25 | XMS_ITS | Clinical Summary ---
Author Organization [facility] Address [address] [address] Phone Care Team Providers Care Athletic Events Scorer Name Role Phone Provider, None Primary Care [...] Lnp-s, Pf, 3 0 Mcg/0.3 Ml Dose (E[place]ygnia) 06/05/2021 TDAP Vaccine 06/02/2020,01/02/2019,12/08/2016 Tuberculin Skin Test; [...] age to complete this topic Insurance [place] MEDICARE [place] [employer] MEDICARE C [facility] Advance Directives * Full Code (Latest Code Status on File) Date Activated Date Inactivated Comments 11/26/2020 10:26 AM 07/22/2021 4:56 AM Care Teams Athletic Events Scorer Relationship Specialty Start Date End Date Provider, None [place] PCP - General 04/11/23 Provider, Unknown UNKNOWN 04/11/23
--- OUTSIDE RECORDS SUMMARY | 2024-06-05 21:25 | XMS_ITS | Encounter Summary ---
Author Organization [facility] Address [address] [place] [address] Phone Care Team Providers Care Sewer Pipe Press Operator Name Role Phone Yaw Sol MD Primary Care Provider [phone] Provider, Unknown Primary Care Provider Unavaila ble Provider, None Primary Care Provider Unavailabl e Provider, Unknown Unavailable Unavailable Reason for Visit * Reason Comments Medication Refill Encounter Details Date Type Department Care Team (Late st Contact Info) Description 08/27/2022 [facility]ill [facility] [address]2 [place] [phone] Yaw Sol MD [address]1 [place] [address] Medication Refill Social History Tobacco Use Types [...] Provider Dept 09/10/22 Appointment Yaw Sol MD [facility] Showing future appointments within next 90 days [...] documented as of this encounter Care Teams Sewer Pipe Press Operator Relationship Specialty Start Date End Date Yaw Sol MD PCP - General Family Medicine 06/18/20 10/18/22 Provider, Unknown UNKNOWN PCP - General 10/23/22 04/10/23 Provider, None [place] PCP - General 04/11/23 Provider, Unknown UNKNOWN 04/11/23 documented as of this encounter
--- OUTSIDE RECORDS SUMMARY | 2024-06-05 21:25 | XMS_ITS | Encounter Summary ---
Author Organization [facility] Address [address] [place] [address] Phone Care Team Providers Care Technical Writer Name Role Phone Yaw Sol MD Primary Care Provider [phone] Provider, Unknown Primary Care Provider Unavaila ble Provider, None Primary Care Provider Unavailabl e Provider, Unknown Unavailable Unavailable Reason for Visit * Reason Comments Medication Refill Encounter Details Date Type Department Care Team (Late st Contact Info) Description 07/31/2022 Refill [facility] [address]2 [place] [phone] Yaw Sol MD [address]1 [place] [address] Medication Refill Social History Tobacco Use Types [...] documented as of this encounter Care Teams Technical Writer Relationship Specialty Start Date End Date Yaw Sol MD PCP - General Family Medicine 06/18/20 10/18/22 Provider, Unknown UNKNOWN PCP - General 10/23/22 04/10/23 Provider, None [place] PCP - General 04/11/23 Provider, Unknown UNKNOWN 04/11/23 documented as of this encounter
--- OUTSIDE RECORDS SUMMARY | 2024-06-05 21:25 | XMS_ITS | Clinical Summary ---
Author Organization [facility] Address [address] [place] [address] Care Team Providers Care Roof Truss Builder Name Role Phone Miscellaneous, Not In File [...] reports being admitted 1 month ago at [place] for CVA. Will need to obtain records. [...] may need MRI to r/o new CVA. TEACHER KINDERGARTEN consulted. Will need to obtain records from patient's admission 1month ago at [place]. Immunizations Name Administration Dates Next Due Tdap 01/02/2019,12/08/2016 Surgical History Surgery Date Site/Laterality Comments JOINT REPLACEMENT Left knee BACK SURGERY Medical History Medical History Date Comments Arthritis COPD (chronic obstructive pulmonary disease) ([facility]) [facility] ([facility]) Social History Tobacco Use Types Packs/Day Years [...] on file Legal Sex Male 7:03 PM ROLLER SETTER Gender Identity Not on file Sexual Orientation [...] PELVIS W CONTRAST ED 05/24/2020 6:38 PM ROLLER SETTER from Last 3 Months or Most Recently Relevant to Health Maintenance Results * CT Abdomen Pelvis W Contrast (05/24/2020 6:38 PM ROLLER SETTER) Anatomical Region Laterality Modality Body N/A Computed Tomogra phy 05/24/2020 6:28 PM ROLLER SETTER Impressions 05/24/2020 6:52 PM ROLLER SETTER ?? No acute inflammatory process is noted. No cholecystitis. ??Normal appendix. Diverticulosis without diverticulitis THIS IS AN ELECTRONICALLY VERIFIED FINAL REPORT 05/24/2020 6:48 PM - Electronically signed by Alvino Cruz M.D. NC: JESSIE D: ??05/24/2020 6:48 PM T: ??05/24/2020 6:48 PM Report ID: [id number] Reading Location: ??[id number] Narrative 05/24/2020 6:52 PM ROLLER SETTER [facility] ?Imaging Result Name: BENITO CISSE ? Ordering Phys: TRI GÓMEZ Age: 69 ?Date of : 1950 ? Accession Number: [id number] Date of Service: 05/24/2020 ??Gender: M EXAM [...] Procedure Note Alvino Cruz MD - 05/24/2020 [facility] Imaging Result Name: BENITO CISSE Ordering Phys: TRI GÓMEZ Age: 69 Date of : 1950 Accession Number: [id number] Date of Service: 05/24/2020 Gender: M EXAM [...] Alvino Cruz M.D. NC: JESSIE Report ID: [id number] Reading Location: [id number] Tri Gómez MD IMG CT PROCEDURES F inal Result from Last 3 Months or Most Recently Relevant to Health Maintenance Insurance [facility] WELLCARE MEDICARE HMO MEDICARE [place] [employer] MEDICARE HMO [facility] MEDICARE GENERIC RISK OTHER [facility] [place] [employer] MEDICARE HMO Advance Directives For more information, please contact: [phone] * Full Code (Latest Code Status on [...] 11:22 AM 09/24/2018 5:51 PM Care Teams Roof Truss Builder Relationship Specialty [place] [address] [place] [address] PCP - General Family Medicine 05/24/20 Miscellaneous, Not In File 08/20/18
--- OUTSIDE RECORDS SUMMARY | 2024-06-05 21:25 | XMS_ITS | Clinical Summary ---
Author Organization [facility] Address [address] [place] [address] Care Team Providers Care Tourist Cabin Keeper Name Role Phone Unavailable Primary Care Provider Unavailabl e Source Comments [facility],non-owned Affiliates and Associated Physician Practices is amultiple site organization consisting of ambulatory clinics and hospital sitesin [place], [place], [place] and [place]. This disclosure is being madepursuant to the Care Everywhere program and may not contain all information available regarding this patient. Last updated 18.[facility] Allergies No known active allergies Medications Be [...] Comments Blood Pressure 116/62 06/06/2019 7:10 AM TURKISH LINE ATTENDANT Pulse 61 06/06/2019 7:10 AM TURKISH LINE ATTENDANT Temperature 36.1 ??C (96.9 ??F) 06/06/2019 7:10 AM CS T Respiratory Rate 20 06/06/2019 10:14 AM TURKISH LINE ATTENDANT Oxygen Saturation 99% 06/06/2019 7:10 AM TURKISH LINE ATTENDANT Inhaled Oxygen Concentration - - Weight 77.1 kg (170 lb) 06/06/2019 7:10 AM TURKISH LINE ATTENDANT Height 167.6 cm (5' 6 ) 06/06/2019 7:10 AM TURKISH LINE ATTENDANT Body Mass Index 27.44 06/06/2019 7:10 AM TURKISH LINE ATTENDANT Plan of Treatment Health Maintenance Due Date [...]
--- OUTSIDE RECORDS SUMMARY | 2024-06-05 21:25 | XMS_ITS | Encounter Summary ---
Author Organization [facility] Address [address] [place] [address] Phone Care Team Providers Care Lens Mounter Name Role Phone Yaw Sol MD Primary Care Provider [phone] Provider, Unknown Primary Care Provider Unavaila ble Provider, None Primary Care Provider Unavailabl e Provider, Unknown Unavailable Unavailable Reason for Visit * Reason Comments Medication Refill Encounter Details Date Type Department Care Team (Late st Contact Info) Description 07/02/2022 Refill [facility] [address]2 [place] [phone] Yaw Sol MD [address] [place] [address] Medication Refill Social History Tobacco Use Types [...] Chey Crane RMA - 07/05/2022 9:19 AM ANIMAL CARE TECHNICIAN Mailed letter AL CARE TECHNICIAN * Telephone Encounter - Kristina Cotton RN - 07/02/2022 5:19 PM CST Needs OV with PCP AL CARE TECHNICIAN * Telephone Encounter - Kristina Cotton RN [...] LDL, HDLCHOLESTE, CHOLESTEROL, TRIGLYCRIDES, VLDL, CHDL, HDLNON AL CARE TECHNICIAN documented in this encounter Plan of Treatment [...] documented as of this encounter Care Teams Lens Mounter Relationship Specialty Start Date End Date Yaw Sol MD PCP - General Family Medicine 06/18/20 10/18/22 Provider, Unknown UNKNOWN PCP - General 10/23/22 04/10/23 Provider, None [place] PCP - General 04/11/23 Provider, Unknown UNKNOWN 04/11/23 documented as of this encounter
--- OUTSIDE RECORDS SUMMARY | 2024-06-05 21:25 | XMS_ITS | Encounter Summary ---
Author Organization [facility] Address [address] [place] [address] Phone Care Team Providers Care Pick Up And Delivery Driver Name Role Phone Yaw Sol MD Primary Care Provider [phone] Provider, Unknown Primary Care Provider Unavaila ble Provider, None Primary Care Provider Unavailabl e Provider, Unknown Unavailable Unavailable Lanie Whitaker Unavailable Unavailab le Reason for Visit * Reason Comments Medication Refill Encounter Details Date Type Department Care Team (Late st Contact Info) Description 11/27/2021 Refill [facility] - Family Medicine [facility] [address] [place] [phone] Darek Salamanca, CUPOLA LINER HELPER, PRESSURE WELDER [address] [address] Medication Refill Social History Tobacco Use Types [...] documented as of this encounter Care Teams Pick Up And Delivery Driver Relationship Specialty Start Date End Date Yaw Sol MD PCP - General Family Medicine 06/18/20 10/18/22 Provider, Unknown UNKNOWN PCP - General 10/23/22 04/10/23 Provider, None [place] PCP - General 04/11/23 Provider, Unknown UNKNOWN 04/11/23 Lanie Whitaker LSW [place] Spud Sorter 01/26/21 12/17/21 documented as of this encounter
--- OUTSIDE RECORDS SUMMARY | 2024-06-05 21:25 | XMS_ITS | Referral Summary ---
Author Organization [facility] Address [address] [place] [address] Care Team Providers Care Marine Geologist Name Role Phone Miscellaneous, Not In File [...] with motrin as needed Cerebrovascular accident (CVA) ([facility]) Assessment & Plan (10/14/2021 12:45 AM CDT): H/o L MCA CVA. Patient had expressive aphasia and right sided weakness from review of EMR. Unclear what residual deficits patient had. Patient also reports being admitted 1 month ago at [place] for CVA. Will need to obtain records. [...] may need MRI to r/o new CVA. GROUNDS PERSON consulted. Will need to obtain records from patient's admission 1month ago at [place]. Immunizations Name Administration Dates Next Due Tdap [...] on file Legal Sex Male 7:03 PM APPLICATION DESIGNER Gender Identity Not on file Sexual Orientation [...] PELVIS W CONTRAST ED 05/24/2020 6:38 PM APPLICATION DESIGNER from Last 3 Months or Most Recently Relevant to Health Maintenance Results * CT Abdomen Pelvis W Contrast (05/24/2020 6:38 PM APPLICATION DESIGNER) Anatomical Region Laterality Modality Body N/A Computed Tomogra phy 05/24/2020 6:28 PM APPLICATION DESIGNER Impressions 05/24/2020 6:52 PM APPLICATION DESIGNER ?? No acute inflammatory process is noted. No cholecystitis. ??Normal appendix. Diverticulosis without diverticulitis THIS IS AN ELECTRONICALLY VERIFIED FINAL REPORT 05/24/2020 6:48 PM - Electronically signed by Alvino Cruz M.D. NC: JESSIE D: ??05/24/2020 6:48 PM T: ??05/24/2020 6:48 PM Report ID: [id number] Reading Location: ??[id number] Narrative 05/24/2020 6:52 PM APPLICATION DESIGNER [facility] ?Imaging Result Name: BENITO CISSE ? Ordering Phys: ANN GÓMEZ Age: 69 ?Date of : 1950 ? Accession Number: [id number] Date of Service: 05/24/2020 ??Gender: M EXAM [...] Procedure Note Alvino Cruz MD - 05/24/2020 [facility] Imaging Result Name: BENITO CISSE Ordering Phys: ANN GÓMEZ Age: 69 Date of : 1950 Accession Number: [id number] Date of Service: 05/24/2020 Gender: M EXAM [...] Alvino Cruz M.D. NC: JESSIE Report ID: [id number] Reading Location: [id number] Ann Gómez MD IMG CT PROCEDURES F inal Result from Last 3 Months or Most Recently Relevant to Health Maintenance Insurance IDPA [facility] MEDICARE HMO MEDICARE [facility] MEDICARE HMO [facility] MEDICARE GENERIC RISK OTHER [facility] [place] [employer] MEDICARE HMO Advance Directives For more information, please contact: [phone] * Full Code (Latest Code Status on [...] 11:22 AM 09/24/2018 5:51 PM Care Teams Marine Geologist Relationship Specialty [place] [id number] [place] [address] PCP - General Family Medicine 05/24/20 Miscellaneous, Not In File 08/20/18
[2024-06-05 21:35] VITALS: BP 118/63; PULSE 82; RESP 18; O2SAT 100
== END 2024-06-05 21:36 | disposition home or self-care (01) ==
LOC: ANHED 21:23
PROVIDERS: Emergency Provider Preventive Medicine Aerospace Medicine
DX: M79.671 Pain in right foot (principal); S90.31XA Contusion of right foot, initial encounter; F17.210 Nicotine dependence, cigarettes, uncomplicated; F41.9 Anxiety disorder, unspecified; I50.9 Heart failure, unspecified; M19.90 Unspecified osteoarthritis, unspecified site; W20.8XXA Other cause of strike by thrown, projected or falling object, initial encounter
CPT/HCPCS: 73620; 96372; 99283; J1885

== ENCOUNTER 2024-07-14 12:50 | Emergency (ER) | payer MEDICARE, MEDICAID, SELFPAY ==
--- NOTE | ~2024-07-14 | XR_ITS ---
Clinical Indication: Cough PA and lateral views of the chest: Comparison: 03/20/2024 Findings: The lungs are clear, without evidence of focal consolidation or pleural effusion. Cardiome diastinal silhouette is within normal limits. Bones and soft tissues are unremarkable. Impression: Normal chest. Reviewed, dictated and finalized at location . Impression: Normal chest.
--- NOTE | ~2024-07-14 | CT_ITS ---
EXAMINATION: CT diagnostic chest wo con DATE: 07/14/2024 16:16 INDICATION: productive cough TECHNIQUE: Computed tomography (CT) of the chest was performed with 100 mL Omnipaque-350 intravenous contrast. Automated exposure control and iterative reconstruction technique were employed. The dose-l ength product was 135.24 mGy-cm. COMPARISON: X-ray chest, same date; [facility]PA 08/19/2023. FINDINGS: CHEST: Thoracic aorta: No significant dilation. Moderate calcification. Lung parenchyma and airways: Small foci of scattered centrilobular nodular groundglass opacities in a ll lobes. Emphysematous change. Mild right lower lobe paraspinal scarring. Dependent atelectasis. Pat ent airways. Thoracic inlet, axillae and chest wall: No thyroid or soft tissue mass. No axillary lymphadenopathy. Mediastinum: No mass or lymphadenopathy. Heart and pericardium: Normal heart size. No pericardial effusion. Coronary artery calcifications: Mild. Pleura: No effusion or mass. Upper abdomen: No significant finding. Thoracic bones: No acute osseous finding in the chest. IMPRESSION: Small foci of scattered centrilobular nodular groundglass opacities in the lungs, may reflect hyperse nsitivity pneumonitis, respiratory bronchiolitis in smokers, or infectious airways disease. Reviewed, dictated and finalized at location K. IMPRESSION: Small foci of scattered centrilobular nodular groundglass opacities in the lung s, may reflect hypersensitivity pneumonitis, respiratory bronchiolitis in smoke rs, or infectious airways disease.
--- OUTSIDE RECORDS SUMMARY | 2024-07-14 12:55 | XMS_ITS | Encounter Summary ---
Author Organization [facility] Address [address] [place] [address] Phone Care Team Providers Care Juvenile Court Judge Name Role Phone Yaw Sol MD Primary Care Provider [phone] Provider, Unknown Primary Care Provider Unavaila ble Provider, None Primary Care Provider Unavailabl e Provider, Unknown Unavailable Unavailable Reason for Visit * Reason Comments Medication Refill Encounter Details Date Type Department Care Team (Late st Contact Info) Description 07/31/2022 Refill [facility] [address] [place] [phone] Yaw Sol MD [address] [place] [address] Medication Refill Social History Tobacco Use Types [...] documented as of this encounter Care Teams Juvenile Court Judge Relationship Specialty Start Date End Date Yaw Sol MD PCP - General Family Medicine 06/18/20 10/18/22 Provider, Unknown UNKNOWN PCP - General 10/23/22 04/10/23 Provider, None [place] PCP - General 04/11/23 Provider, Unknown UNKNOWN 04/11/23 documented as of this encounter
--- OUTSIDE RECORDS SUMMARY | 2024-07-14 12:55 | XMS_ITS | Encounter Summary ---
Author Organization [facility] Address [address] [place] [address] Phone Care Team Providers Care General Production Worker Name Role Phone Yaw Sol MD Primary Care Provider [phone] Provider, Unknown Primary Care Provider Unavaila ble Provider, None Primary Care Provider Unavailabl e Provider, Unknown Unavailable Unavailable Reason for Visit * Reason Comments Medication Refill Encounter Details Date Type Department Care Team (Late st Contact Info) Description 07/02/2022 Refill [facility] [address]2 [place] [phone] Yaw Sol MD [address] [place] [address] Medication Refill Social History Tobacco Use Types [...] Chey Crane RMA - 07/05/2022 9:19 AM EXECUTIVE CYBER LEADER Mailed letter UTIVE CYBER LEADER * Telephone Encounter - Kristina Cotton RN - 07/02/2022 5:19 PM CST Needs OV with PCP UTIVE CYBER LEADER * Telephone Encounter - Kristina Cotton RN [...] LDL, HDLCHOLESTE, CHOLESTEROL, TRIGLYCRIDES, VLDL, CHDL, HDLNON UTIVE CYBER LEADER documented in this encounter Plan of Treatment [...] documented as of this encounter Care Teams General Production Worker Relationship Specialty Start Date End Date Yaw Sol MD PCP - General Family Medicine 06/18/20 10/18/22 Provider, Unknown UNKNOWN PCP - General 10/23/22 04/10/23 Provider, None [place] PCP - General 04/11/23 Provider, Unknown UNKNOWN 04/11/23 documented as of this encounter
--- OUTSIDE RECORDS SUMMARY | 2024-07-14 12:55 | XMS_ITS | Encounter Summary ---
Author Organization [facility] Address [address] [place] [address] Phone Care Team Providers Care Measurement Department Chief Clerk Name Role Phone Yaw Sol MD Primary Care Provider [phone] Provider, Unknown Primary Care Provider Unavaila ble Provider, None Primary Care Provider Unavailabl e Provider, Unknown Unavailable Unavailable Reason for Visit * Reason Comments Medication Refill Encounter Details Date Type Department Care Team (Late st Contact Info) Description 06/25/2022 Refill [facility] [address]2 [place] [phone] Yaw Sol MD [address] [place] [address] Medication Refill Social History Tobacco Use Types [...] Na Bustamante RN - 06/28/2022 8:21 AM CERTIFIED PEDIATRIC NURSE PRACTITIONER Patient needs appointment. Medication failed the protocol, [...] 90 days and meeting all other requirements IFIED PEDIATRIC NURSE PRACTITIONER documented in this encounter Plan of Treatment [...] documented as of this encounter Care Teams Measurement Department Chief Clerk Relationship Specialty Start Date End Date Yaw Sol MD PCP - General Family Medicine 06/18/20 10/18/22 Provider, Unknown UNKNOWN PCP - General 10/23/22 04/10/23 Provider, None [place] PCP - General 04/11/23 Provider, Unknown UNKNOWN 04/11/23 documented as of this encounter
--- OUTSIDE RECORDS SUMMARY | 2024-07-14 12:55 | XMS_ITS | Patient Health Summary ---
Author Organization [email or web address] Address [address] [place] [address] Care Team Providers Care Assembler Engine Name Role Phone Unavailable Primary Care Provider Unavailabl e Note from [email or web address],non-owned Affiliates and Associated Physician Practices is amultiple site organization consisting of ambulatory clinics and hospital sitesin [place], [place], [place] and [place]. This disclosure is being madepursuant to the Care Everywhere program and may not contain all information available regarding this patient. Last updated 18.[email or web address] Allergies No known active allergies Medications Be [...] Comments Blood Pressure 116/62 06/06/2019 7:10 AM TIP CUTTER Pulse 61 06/06/2019 7:10 AM TIP CUTTER Temperature 36.1 C (96.9 F) 06/06/2019 7:10 AM TIP CUTTER Respiratory Rate 20 06/06/2019 10:14 AM TIP CUTTER Oxygen Saturation 99% 06/06/2019 7:10 AM TIP CUTTER Inhaled Oxygen Concentration - - Weight 77.1 kg (170 lb) 06/06/2019 7:10 AM TIP CUTTER Height 167.6 cm (5' 6 ) 06/06/2019 7:10 AM TIP CUTTER Body Mass Index 27.44 06/06/2019 7:10 AM TIP CUTTER Procedures * FL IRIDOTOMY LT(Performed 06/06/2019) Performed for Angle-closure glaucoma, secondary, left, stage unspecified Results * FL IRIDOTOMY LT (06/06/2019 3:38 PM TIP CUTTER) Narrative Shayan Lamb MD - 06/06/2019 3:38 PM TIP CUTTER Audelia Beaulieu MD 06/10/2019 4:14 PM Laser Peripheral Iridotomy Procedure Note The [...]
--- OUTSIDE RECORDS SUMMARY | 2024-07-14 12:55 | XMS_ITS | Encounter Summary ---
Author Organization [facility] Address [address] [place] [address] Phone Care Team Providers Care Citrix Administrator Name Role Phone Yaw Sol MD Primary Care Provider [phone] Provider, Unknown Primary Care Provider Unavaila ble Provider, None Primary Care Provider Unavailabl e Provider, Unknown Unavailable Unavailable Reason for Visit * Reason Comments Medication Refill Encounter Details Date Type Department Care Team (Late st Contact Info) Description 08/27/2022 Refill [facility] [address] [place] [phone] Yaw Sol MD [address] [place] [address] Medication Refill Social History Tobacco Use Types [...] Provider Dept 09/10/22 Appointment Yaw Sol MD [facility] Showing future appointments within next 90 days [...] documented as of this encounter Care Teams Citrix Administrator Relationship Specialty Start Date End Date Yaw Sol MD PCP - General Family Medicine 06/18/20 10/18/22 Provider, Unknown UNKNOWN PCP - General 10/23/22 04/10/23 Provider, None [place] PCP - General 04/11/23 Provider, Unknown UNKNOWN 04/11/23 documented as of this encounter
--- OUTSIDE RECORDS SUMMARY | 2024-07-14 12:55 | XMS_ITS | Encounter Summary ---
Author Organization [facility] Address [address] [place] [address] Phone Care Team Providers Care Rating Officer Name Role Phone Yaw Sol MD Primary Care Provider [phone] Provider, Unknown Primary Care Provider Unavaila ble Provider, None Primary Care Provider Unavailabl e Provider, Unknown Unavailable Unavailable Lanie Whitaker FLAT BED OPERATOR Unavailable Unavailab le Reason for Visit * Reason Comments Medication Refill Encounter Details Date Type Department Care Team (Late st Contact Info) Description 10/28/2021 Refill [facility] - Family Medicine [facility] [address] [place] [phone] Yaw Sol MD [address] [place] [address] Medication Refill Social History Tobacco Use Types [...] Osifrah Spears 11/12/20 Office Visit Darek Salamanca, AOC AIRSPACE CONTROL OFFICER, OXYGEN PLANT OPERATOR [facility] Showing recent visits within past [...] Spears 11/12/20 Office Visit Darek Salamanca APRN, OXYGEN PLANT OPERATOR [facility] Showing recent visits within past 365 days [...] documented as of this encounter Care Teams Rating Officer Relationship Specialty Start Date End Date Yaw Sol MD PCP - General Family Medicine 06/18/20 10/18/22 Provider, Unknown UNKNOWN PCP - General 10/23/22 04/10/23 Provider, None [place] PCP - General 04/11/23 Provider, Unknown UNKNOWN 04/11/23 Lanie Whitaker LSW [place] Commissioner Of Internal Revenue 01/26/21 12/17/21 documented as of this encounter
--- OUTSIDE RECORDS SUMMARY | 2024-07-14 12:55 | XMS_ITS | Referral Summary ---
Author Organization [facility] Address [address] [place] [address] Care Team Providers Care Phys Assistant Name Role Phone Unavailable Primary Care Provider Unavailabl e Source Comments [facility] Affiliates and Associated Physician Practices is amultiple site organization consisting of ambulatory clinics and hospital sitesin [place], [place], [place] and [place]. This disclosure is being madepursuant to the Care Everywhere program and may not contain all information available regarding this patient. Last updated 18.[facility] Allergies No known active allergies Medications Be [...] Comments Blood Pressure 116/62 06/06/2019 7:10 AM METAL FENCE ERECTOR Pulse 61 06/06/2019 7:10 AM METAL FENCE ERECTOR Temperature 36.1 C (96.9 F) 06/06/2019 7:10 AM METAL FENCE ERECTOR Respiratory Rate 20 06/06/2019 10:14 AM METAL FENCE ERECTOR Oxygen Saturation 99% 06/06/2019 7:10 AM METAL FENCE ERECTOR Inhaled Oxygen Concentration - - Weight 77.1 kg (170 lb) 06/06/2019 7:10 AM METAL FENCE ERECTOR Height 167.6 cm (5' 6 ) 06/06/2019 7:10 AM METAL FENCE ERECTOR Body Mass Index 27.44 06/06/2019 7:10 AM METAL FENCE ERECTOR Plan of Treatment Not on file
--- OUTSIDE RECORDS SUMMARY | 2024-07-14 12:55 | XMS_ITS | Clinical Summary ---
Author Organization [facility] Address [address] [place] [address] Care Team Providers Care Tube Mounter Name Role Phone Unavailable Primary Care Provider Unavailabl e Source Comments [facility],non-owned Affiliates and Associated Physician Practices is amultiple site organization consisting of ambulatory clinics and hospital sitesin [place], [place], [place] and [place]. This disclosure is being madepursuant to the Care Everywhere program and may not contain all information available regarding this patient. Last updated 18.[facility] Allergies No known active allergies Medications Be [...] Comments Blood Pressure 116/62 06/06/2019 7:10 AM BURLAP WORKER Pulse 61 06/06/2019 7:10 AM BURLAP WORKER Temperature 36.1 C (96.9 F) 06/06/2019 7:10 AM BURLAP WORKER Respiratory Rate 20 06/06/2019 10:14 AM BURLAP WORKER Oxygen Saturation 99% 06/06/2019 7:10 AM BURLAP WORKER Inhaled Oxygen Concentration - - Weight 77.1 kg (170 lb) 06/06/2019 7:10 AM BURLAP WORKER Height 167.6 cm (5' 6 ) 06/06/2019 7:10 AM BURLAP WORKER Body Mass Index 27.44 06/06/2019 7:10 AM BURLAP WORKER Plan of Treatment Health Maintenance Due Date [...] (#1) 2024 DEPRESSION SCREENING 05/02/2024 MEDICARE AWV CALENDAR YEAR 2024 Respiratory Syncytial Virus (RSV) [...] to complete this topic MENINGOCOCCAL (Group B) VACC INE SHARED DECISION-MAKING Aged Out No longer eligibl e based on patient's age to complete this topic MENINGOCOCCAL GROUPS A/C/Y/W VACCINE Aged Out No longer eligible b ased on patient's age to complete this topic
--- OUTSIDE RECORDS SUMMARY | 2024-07-14 12:55 | XMS_ITS | Clinical Summary ---
Author Organization [facility] Address [address] [place] [address] Care Team Providers Care Aerodynamics Teacher Name Role Phone Miscellaneous, Not In File [...] and replace as needed. Loss of consciousness 10/13/2021 Assessment & Plan (10/14/2021 12:38 AM [...] Patient denies current alcohol use. Moderate malnutrition 09/25/2020 COPD (chronic obstructive pulmonary disease) Assessment [...] with motrin as needed Cerebrovascular accident (CVA) ([facility]) Assessment & Plan (10/14/2021 12:45 AM CDT): H/o L MCA CVA. Patient had expressive aphasia and right sided weakness from review of EMR. Unclear what residual deficits patient had. Patient also reports being admitted 1 month ago at [place] for CVA. Will need to obtain records. [...] may need MRI to r/o new CVA. LOCAL COMPANY INTERMODAL TRUCK DRIVER consulted. Will need to obtain records from patient's admission 1month ago at [place]. 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 Gender Identity Not on file Sexual Orientation Not on file Obstetrics History Last Filed Vital Signs Vital Sign Reading Time Taken Comments Blood Pressure 151/65 02/13/2024 3:17 PM CDT Pulse 79 02/13/2024 3:17 PM CDT Temperature 36.6 C (97.9 F) 02/13/2024 3:15 PM CDT Respiratory Rate 14 02/13/2024 3:17 PM CDT Oxygen Saturation 99% 02/13/2024 3:17 PM CDT Inhaled Oxygen Concentration - - Weight 74.8 kg (165 lb) 02/13/2024 3:17 PM CDT Height 167.6 cm (5' 6 ) 02/13/2024 3:17 PM CDT Body Mass Index 26.63 02/13/2024 3:17 PM CDT Plan of Treatment Health Maintenance Due Date Last Done Comments Colon Cancer Screening-Colonoscopy 1950 Depression Screening 1950 Hepatitis C Screening 1950 Prostate Cancer Screening-PSA 1950 Hepatitis B Screening 12/13/1969 Pneumococcal vaccine 65+ (1 of 2 - PCV) 12/13/1970 Zoster Vaccine (1 of 2) 12/13/2001 Well Visit 65+ 12/13/2016 Fall Risk Assessment 10/15/2022 10/15/2021 Covid-19 Vaccine (2 - season) 01/01/202407/2021 Influenza Vaccine (#1) 2024 05/24/2018 DTaP/Tdap/Td Vaccine (4 - Td or Tdap) 06/02/2030 06/02/2020, 01/02/2019, 12/08/2016 Abdominal Aortic Aneurysm (A AA) Screen Completed 05/24/2020, 02/14/2017, 12/25/2016 Procedures Procedure Name Priority Date/Time Associated Diagnosis Comments CT ABDOMEN PELVIS W CONTRAST ED 05/24/2020 6:38 PM VENEER PRODUCTION MACHINE OPERATOR from Last 3 Months or Most Recently Relevant to Health Maintenance Results * CT Abdomen Pelvis W Contrast (05/24/2020 6:38 PM VENEER PRODUCTION MACHINE OPERATOR) Anatomical Region Laterality Modality Body N/A Computed Tomogra phy 05/24/2020 6:28 PM VENEER PRODUCTION MACHINE OPERATOR Impressions 05/24/2020 6:52 PM VENEER PRODUCTION MACHINE OPERATOR No acute inflammatory process is noted. No cholecystitis. Normal appendix. Diverticulosis without diverticulitis THIS IS AN ELECTRONICALLY VERIFIED FINAL REPORT 05/24/2020 6:48 PM - Electronically signed by Alvino Cruz M.D. NC: JESSIE Report ID: [id number] Reading Location: [id number] [facility] 05/24/2020 6:52 PM VENEER PRODUCTION MACHINE OPERATOR [facility] Imaging Result Name: BENITO CISSE Ordering Phys: TRI GÓMEZ Age: 69 Date of : 1950 Accession Number: [id number] Date of Service: 05/24/2020 Gender: M EXAM [...] optimization technique for this examination. CONTRAST TYPE/DOSE: 100 of optiray 320 injected via rt ac COMPARISON: 08/09/2018 LOWER CHEST: No significant pulmonary abnormalities. No effusion. LIVER: Normal size. No identified cystic or solid masses. GALLBLADDER: No stones identified. No wall thickening or inflammatory changes. BILE DUCTS: No intrahepatic or extrahepatic ductal dilatation. SPLEEN: Normal size. No focal lesions. PANCREAS: No identified cystic or solid masses. No significant calcifications. No adjacent inflammation or peripancreatic fluid collections. Pancreatic duct not dilated. ADRENALS: Normal. KIDNEYS/URINARY TRACT: Cysts are noted in the kidney which are statistically benign. No visualized stone or hydronephrosis. Urinary bladder is unremarkable. GI: No dilated bowel loops. No obvious wall thickening. Normal appendix. Scattered diverticular disease without diverticulitis. PERITONEUM: No ascites or free air. RETROPERITONEUM: No mass or adenopathy. REPRODUCTIVE: Enlarged prostate gland VASCULATURE: Atherosclerotic disease in the aorta and iliacs MUSCULOSKELETAL: No significant abnormality. OTHER: No other abnormality. Procedure Note Alvino Cruz MD - 05/24/2020 [facility] Imaging Result Name: BENITO CISSE Ordering Phys: TRI GÓMEZ Age: 69 Date of : 1950 Accession Number: [id number] Date of Service: 05/24/2020 Gender: M EXAM [...] Alvino Cruz M.D. NC: JESSIE Report ID: [id number] Reading Location: [id number] Tri Gómez MD IMG CT PROCEDURES F inal Result from Last 3 Months or Most Recently Relevant to Health Maintenance Insurance [employer] MEDICARE HMO MEDICARE IDPA [facility] MEDICARE HMO [facility] MEDICARE GENERIC RISK OTHER [facility] [place] [employer] [employer]LL[employer] MEDICARE HMO Advance Directives For more information, please contact: [phone] * Full Code (Latest Code Status on [...] 11:22 AM 09/24/2018 5:51 PM Care Teams Aerodynamics Teacher Relationship Specialty [place] [address] [id number] [place] [address] PCP - General Family Medicine 05/24/20 Miscellaneous, Not In File 08/20/18
--- OUTSIDE RECORDS SUMMARY | 2024-07-14 12:55 | XMS_ITS | Encounter Summary ---
Author Organization [facility] Address [address] [place] [address] Phone Care Team Providers Care Dust Collector Ore Crushing Name Role Phone Yaw Sol MD Primary Care Provider [phone] Provider, Unknown Primary Care Provider Unavaila ble Provider, None Primary Care Provider Unavailabl e Provider, Unknown Unavailable Unavailable Lanie Whitaker Unavailable Unavailab le Reason for Visit * Reason Comments Medication Refill Encounter Details Date Type Department Care Team (Late st Contact Info) Description 11/27/2021 Refill [facility] - Family Medicine [facility] [address] [place] [id number] Darek Salamanca, SQL DATABASE DEVELOPER, PHOTOGRAMMETRIC ENGINEER [address] [address] Medication Refill Social History Tobacco Use Types [...] documented as of this encounter Care Teams Dust Collector Ore Crushing Relationship Specialty Start Date End Date Yaw Sol MD PCP - General Family Medicine 06/18/20 10/18/22 Provider, Unknown UNKNOWN PCP - General 10/23/22 04/10/23 Provider, None [place] PCP - General 04/11/23 Provider, Unknown UNKNOWN 04/11/23 Lanie Whitaker LSW [place] Infusion Nurse 01/26/21 12/17/21 documented as of this encounter
--- OUTSIDE RECORDS SUMMARY | 2024-07-14 12:55 | XMS_ITS | Referral Summary ---
Author Organization [facility] Address [address] [place] [address] Care Team Providers Care Business Management Manager Name Role Phone Miscellaneous, Not In File [...] with motrin as needed Cerebrovascular accident (CVA) ([facility]) Assessment & Plan (10/14/2021 12:45 AM CDT): H/o L MCA CVA. Patient had expressive aphasia and right sided weakness from review of EMR. Unclear what residual deficits patient had. Patient also reports being admitted 1 month ago at [place] for CVA. Will need to obtain records. [...] may need MRI to r/o new CVA. COSTUMED CHARACTER ENTERTAINER consulted. Will need to obtain records from patient's admission 1month ago at [place]. 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 No cholecystitis. Normal appendix. Diverticulosis without diverticulitis THIS IS AN ELECTRONICALLY VERIFIED FINAL REPORT 05/24/2020 6:48 PM - Electronically signed by Alvino Cruz M.D. NC: JESSIE Report ID: [id number] Reading Location: [id number] [facility] 05/24/2020 6:52 PM INSURANCE CLAIMS PROCESSOR [facility] Imaging Result Name: BENITO CISSE Ordering Phys: TRI GÓMEZ Age: 69 Date of : 1950 Accession Number: [id number] Date of Service: 05/24/2020 Gender: M EXAM [...] Procedure Note Alvino Cruz MD - 05/24/2020 [facility] Imaging Result Name: BENITO CISSE Ordering Phys: TRI GÓMEZ Age: 69 Date of : 1950 Accession Number: [id number] Date of Service: 05/24/2020 Gender: M EXAM [...] Alvino Cruz M.D. NC: JESSIE Report ID: [id number] Reading Location: [place] [address] Tri Gómez MD IMG CT PROCEDURES F inal Result from Last 3 Months or Most Recently Relevant to Health Maintenance Insurance [employer]LLC[employer] MEDICARE HMO MEDICARE [facility] Address: [address] [address] [place] [address] [facility] MEDICARE HMO MANAGED MEDICARE GENERIC RISK OTHER [facility] Member Subscriber Plan / Payer (Ef fective 2021-Present) Name:Benito Cisse Member ID:[id number] Relation to Subscriber:Self Name:Benito Cisse Subscriber ID:[id number] Payer ID:[id number] (NAIC) Group ID:Not on file Type:MEDICARE RISK OTHER Address: [facility] ATTN: CLAIMS [address] [place] [id number] [place] [address] WELLCARE MEDICARE HMO Advance Directives For more information, please contact: [phone] * Full Code (Latest Code Status on [...] 11:22 AM 09/24/2018 5:51 PM Care Teams Business Management Manager Relationship Specialty [place] [id number] [place] [address] PCP - General Family Medicine 05/24/20 Miscellaneous, Not In File 08/20/18
--- OUTSIDE RECORDS SUMMARY | 2024-07-14 12:55 | XMS_ITS | Clinical Summary ---
Author Organization [facility] [facility] Address [address] [address] Phone Care Team Providers Care Information Assurance Engineer Name Role Phone Provider, None Primary Care [...] Lnp-s, Pf, 3 0 Mcg/0.3 Ml Dose ([facility]) 06/05/2021 TDAP Vaccine 06/02/2020,01/02/2019,12/08/2016 Tuberculin Skin Test; [...] 93 11/30/2023 4:21 AM CDT Temperature 36.4 C (97.5 F) 11/30/2023 4:21 AM CDT Respiratory Rate 18 11/30/2023 4:21 AM CDT [...] Influenza Immunization (#1) 2024 05/24/2018 SARS-COV-2 Immunization ( season) 2024 06/05/2021 Td Immunization Every 10 [...] age to complete this topic Insurance MEDICAID [place] MEDICARE C [facility] C [facility] Advance Directives * Full Code (Latest Code Status on File) Date Activated Date Inactivated Comments 11/26/2020 10:26 AM 07/22/2021 4:56 AM Care Teams Information Assurance Engineer Relationship Specialty Start Date End Date Provider, None [place] PCP - General 04/11/23 Provider, Unknown UNKNOWN 04/11/23
[2024-07-14 13:06] VITALS: BP 119/64; PULSE 83; RESP 19; TEMP 36.7; O2SAT 100
[2024-07-14 14:04] LABS: Influenza A QL RT-PCR Negative (Negative); Influenza B QL RT-PCR Negative (Negative); RSV RNA, RT-PCR Negative (Negative); SARS-CoV-2 RNA PCR Negative (Negative)
--- NOTE | 2024-07-14 16:01 | ED.URI ---
HPI - URI/Sore Throat General Chief Complaint: Upper Respiratory Infection Stated Complaint: COUGH/COLD S/SX X1WK Time Seen by Provider: 07/14/24 15:50 Source: patient Mode of arrival: ambulatory Limitations: no limitations History of Present Illness HPI Narrative: This is a 73 year old male that presents to the ER for cold symptoms. Ongoing over the last week. Reports cough, congestion, sore throat, fevers. Related Data Home Medications ?Medication ?Instructions ?Recorded ?Confirmed ?Last Taken ?Type naproxen 500 mg tablet 500 mg PO BID PRN Pain (Scale 12/01/23 12/01/23 Unknown History Score 1-3) Allergies Allergy/AdvReac Type Severity Reaction Status Date / Time No Known Allergies Allergy Verified 07/14/24 12:53 Review of Systems Review of Systems: CONSTITUTIONAL: Reports fever ENT: Reports rhinorrhea, congestion, sore throat RESPIRATORY: Reports cough and dyspnea. All systems reviewed & are unremarkable except as noted in HPI and below PMFSH Past Medical History Medical History Cocaine abuse Tobacco abuse Normocytic anemia History of depression History of anxiety History of CHF (congestive heart failure) Arthritis Surgical History Surgical History History of left knee replacement Social History Social History Smoking packs per day: 1 Smoking cigarettes per day: 20.0 Smoking status: Current every day smoker Alcohol intake: never Substance use: current Substance use type: crack/cocaine Last use: POSITIVE LABS ON ADMISSION Do You Feel Safe in your Home?: Yes Lack of Transportation: YES Lack of Food: Sometimes True Current Housing: I Do Not Have Housing Concerned About Future Housing: YES Difficulty Paying Gas/Electric Bills: YES Difficulty Paying for Meds: YES Currently Unemployed: YES Education: Don't Know Difficulty w/ Childcare or Family Care: No Gender identity (if verbalized by the patient): Male Spiritual care concerns: No Exam Narrative: GENERAL: Well-appearing, well-nourished, and in no acute distress. HEAD: Normocephalic, atraumatic. EYES: EOMI. ENT: Nares clear, no rhinorrhea or epistaxis. Mucous membranes moist. Oropharynx without tonsillar hypertrophy exudate or other lesions. Bilateral TMs pearly valencia non-bulging NECK: Supple. No adenopathy or masses. CHEST: Clear to auscultation. No respiratory distress. No wheezes rales or rhonchi HEART: Regular rate and rhythm. No murmur heard. Normal peripheral pulses. EXTREMITIES: Normal range of motion. No edema. SKIN: Warm, dry, no rash. NEURO: No focal deficits. Alert and oriented x3. PSYCH: Normal mood and affect Course Course Emergency Course: patient updated on his workup and agrees with plan of care Vital Signs Vital signs: Vital Signs Temperature 98.0 F 07/14/24 13:06 Pulse Rate 83 07/14/24 13:06 Respiratory Rate 19 07/14/24 13:06 Blood Pressure 119/64 07/14/24 13:06 Pulse Oximetry 100 07/14/24 13:06 Oxygen Delivery Room Air 07/14/24 13:06 Temperature 98.0 F 07/14/24 13:06 Pulse Rate 65 07/14/24 16:10 Respiratory Rate 16 07/14/24 16:10 Blood Pressure 124/78 07/14/24 16:10 Pulse Oximetry 96 07/14/24 16:10 Oxygen Delivery Room Air 07/14/24 13:06 MDM - URI/Sore Throat MDM Narrative Medical decision making narrative: Patient presents the emergency department for cold symptoms present over the last week. He is afebrile and nontoxic appearing. His vitals are stable. Oxygen saturations normal on room air. Cbc without leukocytosis. Metabolic panel without concerning findings. Influenza, RSV, COVID screens are negative. Chest x-ray is normal. CT obtained for further evaluation. This shows findings of what appears to be pneumonia in the right lower lobe. patient updated on his workup and agrees with plan of care. He was given warnings to return to the ER Differential Diagnosis Differential diagnosis: Likely upper respiratory infection, sinusitis, viral infection, bronchitis, influenza and other (pneumonia) Lab Data Attestation: I reviewed the patient's lab results. 07/14/24 16:28 07/14/24 16:28 Labs: Lab Results 07/14/24 07/14/24 07/14/24 Range/Units 13:18 16:28 16:28 WBC 5.4 (4.5-10.0) K/mm3 RBC 4.67 (4.6-6.20) M/mm3 Hgb 14.0 (14.0-18.0) g/dL Hct 44.9 (42.0-52.0) % MCV 96.1 (80-100) fl MCH 30.0 (26-34) pg MCHC 31.2 L (32-36) g/dl RDW 13.2 (11.5-14.5) % Plt Count 263 (150-375) k/mm3 MPV 9.3 (7.4-10.4) fl Immature Gran % (Auto) 0.4 (0-0.5) % Neut % (Auto) 61.3 (45.5-73.1) % Lymph % (Auto) 29.8 (18.3-44.2) % [place] % (Auto) 6.3 (2.6-8.5) % Eos % (Auto) 1.5 (0-4.4) % Baso % (Auto) 0.7 (0.2-1.2) % Lymph # (Auto) 1.61 (0.9-3.2) K/mm3 [place] # (Auto) 0.3 (0.1-0.6) K/mm3 Eos # (Auto) 0.1 (0-0.3) K/mm3 Baso # (Auto) 0.0 (0.0-0.1) K/mm3 Abs Immat Gran (auto) 0.02 (0.00-0.031) K/mm3 Absolute Neuts (auto) 3.3 (1.3-6.7) K/mm3 Absolute Nucleated RBC 0.000 (0.0-0.012) K/mm3 Nucleated RBC % 0.0 (0.0-0.2) % Sodium 143 (137-145) mmol/L Potassium 4.2 (3.4-5.0) mmol/L Chloride 109 H (98-107) mmol/L Carbon Dioxide 27 (22-30) mmol/L Anion Gap 7 (4-12) mmol/L BUN 25 H (9-20) mg/dL Creatinine 1.00 (0.7-1.3) mg/dL Estim Creat Clear Calc 53 ml/min Estimated GFR > 60 (59 - ) Glucose 81 (65-110) mg/dL Calcium 8.6 (8.4-10.2) mg/dL Total Bilirubin 0.5 (0.2-1.3) mg/dL AST 18 (17-59) U/L ALT 10 (6-50) U/L Alkaline Phosphatase 69 (38-126) U/L NT-Pro-B Natriuret Pep 103 H Cancelled (19.9-100) pg/mL Total Protein 8.0 (6.3-8.2) g/dL Albumin 4.1 (3.5-5.1) g/dL Influenza A (RT-PCR) Negative (Negative) Influenza B (RT-PCR) Negative (Negative) RSV (RT-PCR) Negative (Negative) SARS-CoV-2 RNA (RT-PCR) Negative (Negative) Imaging Data Radiologist's impression: ITS Impressions Chest X-Ray 07/14/24 13:37 Impression: Normal chest. Chest CT 07/14/24 16:19 IMPRESSION: Small foci of scattered centrilobular nodular groundglass opacities in the lungs, may reflect hypersensitivity pneumonitis, respiratory bronchiolitis in smokers, or infectious airways disease. Critical Care Time Critical Care Time Critical Care Time: No Discharge Plan Discharge Clinical Impression: Right lower lobe pneumonia Qualifiers: Pneumonia type: due to unspecified organism Qualified Code(s): J18.9 - Pneumonia, unspecified organism Patient Disposition: Home, Self-Care Condition: Stable Instructions: Antibiotic Form, Community Acquired Pneumonia (ED) Additional Instructions: Return to the emergency department for worsening symptoms, or any other concerns Remain well-hydrated, get plenty of rest. Take Tylenol or Motrin [id number] for pain as needed. Take oral antibiotics as prescribed Follow up with primary care doctor Patient Language: Mozambican Prescriptions: New azithromycin 250 mg tablet See Rx Instructions .ROUTE .COMPLEX Qty: 6 0RF Rx Instructions: For 250 mg dose pack: take 500 mg today (day 1), then 250 mg for 4 days (days 2-5) amoxicillin 500 mg capsule 1,000 mg PO Q8H 5 Days Qty: 30 0RF No Action naproxen 500 mg tablet 500 mg PO BID PRN (Reason: Pain (Scale Score 1-3)) amoxicillin-pot clavulanate 875-125 mg tablet 1 tablet PO Q12H Qty: 14 0RF prednisone 20 mg tablet 40 mg PO DAILY Qty: 10 0RF albuterol sulfate 90 mcg/actuation HFA aerosol inhaler 1 inh inhalation QID PRN (Reason: shortness of breath or wheezing) Qty: 6.7 0RF lidocaine 5 % adhesive patch,medicated 1 patch topical DAILY Qty: 15 0RF Rx Instructions: leave on most painful area for up to 12 hrs naproxen 500 mg tablet 500 mg PO BID PRN (Reason: pain) Qty: 20 0RF Follow-up/Referrals: Eduar Grayson MD [Physician] - PHYSICIAN,METALLURGICAL TESTER [Primary Care Provider] -
[2024-07-14] MEDS: ACETAMINOPHEN 500 MG TABLET 1000 MG PO (16:08)
[2024-07-14 16:10] VITALS: BP 124/78; PULSE 65; RESP 16; O2SAT 96
--- NOTE | 2024-07-14 16:11 | PC.NURSE ---
Pt. to CT.
--- OUTSIDE RECORDS SUMMARY | 2024-07-14 16:32 | XMS_ITS | Clinical Summary ---
Author Organization [facility] Address [address] [address] Phone Care Team Providers Care Surface Miner Name Role Phone Provider, None Primary Care [...] Lnp-s, Pf, 3 0 Mcg/0.3 Ml Dose ([facility]) 06/05/2021 TDAP Vaccine 06/02/2020,01/02/2019,12/08/2016 Tuberculin Skin Test; [...] age to complete this topic Insurance MEDICAID [place] MEDICARE C [facility] Advance Directives * Full Code (Latest Code Status on File) Date Activated Date Inactivated Comments 11/26/2020 10:26 AM 07/22/2021 4:56 AM Care Teams Surface Miner Relationship Specialty Start Date End Date Provider, None [place] PCP - General 04/11/23 Provider, Unknown UNKNOWN 04/11/23
[2024-07-14 16:33] LABS: Basophils Percent Auto 0.7 % (0.2-1.2); Eosinophils Absolute Auto 0.1 K/mm3 (0-0.3); Eosinophils Percent Auto 1.5 % (0-4.4); Hematocrit 44.9 % (42.0-52.0); Immature Granulocyte Absolute 0.02 K/mm3 (0.00-0.031); Immature Granulocyte Percent A 0.4 % (0-0.5); Lymphocytes Absolute Auto 1.61 K/mm3 (0.9-3.2); Lymphocytes Percent Auto 29.8 % (18.3-44.2); Mean Corpuscular HGB Conc 31.2 g/dl (32-36); Mean Corpuscular Volume 96.1 fl (80-100); Mean Platelet Volume 9.3 fl (7.4-10.4); Monocytes Absolute Auto 0.3 K/mm3 (0.1-0.6); Monocytes Percent Auto 6.3 % (2.6-8.5); Neutrophils Absolute Auto 3.3 K/mm3 (1.3-6.7); Neutrophils Percent Auto 61.3 % (45.5-73.1); Platelet Count Result 263 k/mm3 (150-375); Red Blood Count 4.67 M/mm3 (4.6-6.20); Red Cell Distribution Width 13.2 % (11.5-14.5); White Blood Count 5.4 K/mm3 (4.5-10.0)
--- OUTSIDE RECORDS SUMMARY | 2024-07-14 16:33 | XMS_ITS | Encounter Summary ---
Author Organization [facility] Address [address] [place] [address] Phone Care Team Providers Care Dobie Worker Name Role Phone Yaw Sol MD Primary Care Provider [phone] Provider, Unknown Primary Care Provider Unavaila ble Provider, None Primary Care Provider Unavailabl e Provider, Unknown Unavailable Unavailable Reason for Visit * Reason Comments Medication Refill Encounter Details Date Type Department Care Team (Late st Contact Info) Description 06/25/2022 [facility]ill [facility] [address] [place] [phone] Yaw Sol MD [address] [place] [address] Medication Refill Social History Tobacco Use Types [...] Na Bustamante RN - 06/28/2022 8:21 AM MANAGER RELOCATION Patient needs appointment. Medication failed the protocol, [...] 90 days and meeting all other requirements GER RELOCATION documented in this encounter Plan of Treatment [...] documented as of this encounter Care Teams Dobie Worker Relationship Specialty Start Date End Date Yaw Sol MD PCP - General Family Medicine 06/18/20 10/18/22 Provider, Unknown UNKNOWN PCP - General 10/23/22 04/10/23 Provider, None [place] PCP - General 04/11/23 Provider, Unknown UNKNOWN 04/11/23 documented as of this encounter
--- OUTSIDE RECORDS SUMMARY | 2024-07-14 16:33 | XMS_ITS | Encounter Summary ---
Author Organization [facility] Address [address] [place] [address] Phone Care Team Providers Care Director Of Laboratory Operations Name Role Phone Yaw Sol MD Primary Care Provider [phone] Provider, Unknown Primary Care Provider Unavaila ble Provider, None Primary Care Provider Unavailabl e Provider, Unknown Unavailable Unavailable Lanie Whitaker FNPS Unavailable Unavailab le Reason for Visit * Reason Comments Medication Refill Encounter Details Date Type Department Care Team (Late st Contact Info) Description 10/28/2021 Refill [facility] - Family Medicine [facility] [address] [place] [phone] Yaw Sol MD [address] [place] [address] Medication Refill Social History Tobacco Use Types [...] Osifrah Spears 11/12/20 Office Visit Darek Salamanca, GAMMA RAY OPERATOR, RUBBER TIRE AND TUBES SUPERVISOR [facility] Show[facility] recent visits within past 365 days [...] Spears 11/12/20 Office Visit Darek Salamanca APRN, RUBBER TIRE AND TUBES SUPERVISOR [facility] Showing recent visits within past 365 [...] documented as of this encounter Care Teams Director Of Laboratory Operations Relationship Specialty Start Date End Date Yaw Sol MD PCP - General Family Medicine 06/18/20 10/18/22 Provider, Unknown UNKNOWN PCP - General 10/23/22 04/10/23 Provider, None [place] PCP - General 04/11/23 Provider, Unknown UNKNOWN 04/11/23 Lanie Whitaker LSW [place] Filling Separator 01/26/21 12/17/21 documented as of this encounter
--- OUTSIDE RECORDS SUMMARY | 2024-07-14 16:33 | XMS_ITS | Referral Summary ---
Author Organization [facility] Address [address] [place] [address] Care Team Providers Care Water Mechanic Name Role Phone Unavailable Primary Care Provider Unavailabl e Source Comments [facility],non-[facility] Affiliates and Associated Physician Practices is amultiple site organization consisting of ambulatory clinics and hospital sitesin [place], [place], [place] and [place]. This disclosure is being madepursuant to the Care Everywhere program and may not contain all information available regarding this patient. Last updated 18.[facility] Allergies No known active allergies Medications Be [...] Comments Blood Pressure 116/62 06/06/2019 7:10 AM CALL CENTER DISPATCHER Pulse 61 06/06/2019 7:10 AM CALL CENTER DISPATCHER Temperature 36.1 C (96.9 F) 06/06/2019 7:10 AM CALL CENTER DISPATCHER Respiratory Rate 20 06/06/2019 10:14 AM CALL CENTER DISPATCHER Oxygen Saturation 99% 06/06/2019 7:10 AM CALL CENTER DISPATCHER Inhaled Oxygen Concentration - - Weight 77.1 kg (170 lb) 06/06/2019 7:10 AM CALL CENTER DISPATCHER Height 167.6 cm (5' 6 ) 06/06/2019 7:10 AM CALL CENTER DISPATCHER Body Mass Index 27.44 06/06/2019 7:10 AM CALL CENTER DISPATCHER Plan of Treatment Not on file
--- OUTSIDE RECORDS SUMMARY | 2024-07-14 16:33 | XMS_ITS | Encounter Summary ---
Author Organization [facility] Address [address] [place] [address] Phone Care Team Providers Care Gear Nicker Name Role Phone Yaw Sol MD Primary Care Provider [phone] Provider, Unknown Primary Care Provider Unavaila ble Provider, None Primary Care Provider Unavailabl e Provider, Unknown Unavailable Unavailable Lanie Whitaker Unavailable Unavailab le Reason for Visit * Reason Comments Medication Refill Encounter Details Date Type Department Care Team (Late st Contact Info) Description 11/27/[address] [facility] - [facility] [address] [place] [phone] Darek Salamanca, NON DESTRUCTIVE EVALUATION MANAGER, SUPERVISING NURSE [address] [address] Medication Refill Social History Tobacco Use Types [...] documented as of this encounter Care Teams Gear Nicker Relationship Specialty Start Date End Date Yaw Sol MD PCP - General Family Medicine 06/18/20 10/18/22 Provider, Unknown UNKNOWN PCP - General 10/23/22 04/10/23 Provider, None [place] PCP - General 04/11/23 Provider, Unknown UNKNOWN 04/11/23 Lanie Whitaker LSW [place] Convertible Sofa Bedspring Tester 01/26/21 12/17/21 documented as of this encounter
--- OUTSIDE RECORDS SUMMARY | 2024-07-14 16:33 | XMS_ITS | Clinical Summary ---
Author Organization [facility] Address [address] [place] [address] Care Team Providers Care Used Car Manager Name Role Phone Miscellaneous, Not In [...] with motrin as needed Cerebrovascular accident [facility]A) [facility]) Assessment & Plan (10/14/2021 12:45 AM CDT): H/o L MCA CVA. Patient had expressive aphasia and right sided weakness from review of EMR. Unclear what residual deficits patient had. Patient also reports being admitted 1 month ago at [place] for CVA. Will need to obtain records. [...] may need MRI to r/o new CVA. NAPHTHALENE STILL OPERATOR consulted. Will need to obtain records from patient's admission 1month ago at [place]. Immunizations Immunization Administration Dates Next Due Tdap 01/02/2019,12/08/2016 Surgical History Surgery Date Site/Laterality Comments JOINT REPLACEMENT Left knee BACK SURGERY Medical History Medical History Date Comments Arthritis COPD (chronic obstructive pulmonary disease) ( C) Stroke ([facility]) Social History Tobacco Use Types Packs/Day Years [...] on file Legal Sex Male 7:03 PM ROASTER HELPER Gender Identity Not on file Sexual Orientation [...] PELVIS W CONTRAST ED 05/24/2020 6:38 PM ROASTER HELPER from Last 3 Months or Most Recently Relevant to Health Maintenance Results * CT Abdomen Pelvis W Contrast (05/24/2020 6:38 PM ROASTER HELPER) Anatomical Region Laterality Modality Body N/A Computed Tomogra phy 05/24/2020 6:28 PM ROASTER HELPER Impressions 05/24/2020 6:52 PM ROASTER HELPER No acute inflammatory process is noted. No cholecystitis. Normal appendix. Diverticulosis without diverticulitis THIS IS AN ELECTRONICALLY VERIFIED FINAL REPORT 05/24/2020 6:48 PM - Electronically signed by Alvino Cruz M.D. NC: JESSIE Report ID: [id number] Reading Location: [id number] [facility] 05/24/2020 6:52 PM ROASTER HELPER [facility] Imaging Result Name: BENITO CISSE Ordering Phys: TRI GÓMEZ Age: 69 Date of : 1950 Accession Number: [id number] Date of Service: 05/24/2020 Gender: M EXAM [...] Procedure Note Alvino Cruz MD - 05/24/2020 [facility] Imaging Result Name: BENITO CISSE Ordering Phys: TRI GÓMEZ Age: 69 Date of : 1950 Accession Number: [id number] Date of Service: 05/24/2020 Gender: M EXAM [...] Alvino Cruz M.D. NC: JESSIE Report ID: [id number] Reading Location: [id number] Tri Gómez MD IMG CT PROCEDURES F inal Result from Last 3 Months or Most Recently Relevant to Health Maintenance [place] [address] WELLCARE MEDICARE HMO MEDICARE IDPA [facility] MEDICARE HMO [facility] MEDICARE GENERIC RISK OTHER [facility] [place] WELLCARE MEDICARE HMO Advance Directives For more information, please contact: [phone] * Full Code (Latest Code Status on [...] 11:22 AM 09/24/2018 5:51 PM Care Teams Used Car Manager Relationship Specialty [place] [address] [facility] [id number] [place] [address] PCP - General Family Medicine 05/24/20 Miscellaneous, Not In File 08/20/18
--- OUTSIDE RECORDS SUMMARY | 2024-07-14 16:33 | XMS_ITS | Encounter Summary ---
Author Organization [facility] Address [address] [place] [address] Phone Care Team Providers Care Green Ware Caster Name Role Phone Yaw Sol MD Primary Care Provider [phone] Provider, Unknown Primary Care Provider Unavaila ble Provider, None Primary Care Provider Unavailabl e Provider, Unknown Unavailable Unavailable Reason for Visit * Reason Comments Medication Refill Encounter Details Date Type Department Care Team (Late st Contact Info) Description 07/02/2022 Refill [facility] [address] [place] [phone] Yaw Sol MD [address] [place] [address] Medication Refill Social History Tobacco Use Types [...] Chey Crane RMA - 07/05/2022 9:19 AM PROFESSOR OF CRIMINAL JUSTICE Mailed letter ESSOR OF CRIMINAL JUSTICE * Telephone Encounter - Kristina Cotton RN - 07/02/2022 5:19 PM CST Needs OV with PCP ESSOR OF CRIMINAL JUSTICE * Telephone Encounter - Kristina Cotton RN [...] LDL, HDLCHOLESTE, CHOLESTEROL, TRIGLYCRIDES, VLDL, CHDL, HDLNON ESSOR OF CRIMINAL JUSTICE documented in this encounter Plan of Treatment [...] documented as of this encounter Care Teams Green Ware Caster Relationship Specialty Start Date End Date Yaw Sol MD PCP - General Family Medicine 06/18/20 10/18/22 Provider, Unknown UNKNOWN PCP - General 10/23/22 04/10/23 Provider, None [place] PCP - General 04/11/23 Provider, Unknown UNKNOWN 04/11/23 documented as of this encounter
--- OUTSIDE RECORDS SUMMARY | 2024-07-14 16:33 | XMS_ITS | Encounter Summary ---
Author Organization [facility] Address [address] [place] [address] Phone Care Team Providers Care Thrill Performer Name Role Phone Yaw Sol MD Primary Care Provider [phone] Provider, Unknown Primary Care Provider Unavaila ble Provider, None Primary Care Provider Unavailabl e Provider, Unknown Unavailable Unavailable Reason for Visit * Reason Comments Medication Refill Encounter Details Date Type Department Care Team (Late st Contact Info) Description 08/27/2022 Refill [facility] - Family Medicine [facility] [address]2 [place] [phone] Yaw Sol MD [address] [place] [address] Medication Refill Social History Tobacco Use Types [...] Provider Dept 09/10/22 Appointment Yaw Sol MD [facility] Showing future appointments within next 90 days [...] documented as of this encounter Care Teams Thrill Performer Relationship Specialty Start Date End Date Yaw Sol MD PCP - General Family Medicine 06/18/20 10/18/22 Provider, Unknown UNKNOWN PCP - General 10/23/22 04/10/23 Provider, None [place] PCP - General 04/11/23 Provider, Unknown UNKNOWN 04/11/23 documented as of this encounter
--- OUTSIDE RECORDS SUMMARY | 2024-07-14 16:33 | XMS_ITS | Clinical Summary ---
Author Organization [facility] Address [address] [place] [address] Care Team Providers Care Transportation Aid Name Role Phone Unavailable Primary Care Provider Unavailabl e Source Comments [facility],non-owned Affiliates and Associated Physician Practices is amultiple site organization consisting of ambulatory clinics and hospital sitesin [place], [place], [place] and [place]. This disclosure is being madepursuant to the Care Everywhere program and may not contain all information available regarding this patient. Last updated 18.[facility] Allergies No known active allergies Medications Be [...] Comments Blood Pressure 116/62 06/06/2019 7:10 AM PLASTERER MAINTENANCE Pulse 61 06/06/2019 7:10 AM PLASTERER MAINTENANCE Temperature 36.1 C (96.9 F) 06/06/2019 7:10 AM PLASTERER MAINTENANCE Respiratory Rate 20 06/06/2019 10:14 AM PLASTERER MAINTENANCE Oxygen Saturation 99% 06/06/2019 7:10 AM PLASTERER MAINTENANCE Inhaled Oxygen Concentration - - Weight 77.1 kg (170 lb) 06/06/2019 7:10 AM PLASTERER MAINTENANCE Height 167.6 cm (5' 6 ) 06/06/2019 7:10 AM PLASTERER MAINTENANCE Body Mass Index 27.44 06/06/2019 7:10 AM PLASTERER MAINTENANCE Plan of Treatment Health Maintenance Due Date [...]
--- OUTSIDE RECORDS SUMMARY | 2024-07-14 16:33 | XMS_ITS | Patient Health Summary ---
Author Organization [facility] Address [address] [place] [address] Care Team Providers Care Regulatory Affairs Consultant Name Role Phone Unavailable Primary Care Provider Unavailabl e Note from [facility],non-owned Affiliates and Associated Physician Practices is amultiple site organization consisting of ambulatory clinics and hospital sitesin [place], [place], [place] and [place]. This disclosure is being madepursuant to the Care Everywhere program and may not contain all information available regarding this patient. Last updated 18.[facility] Allergies No known active allergies Medications Be [...] Comments Blood Pressure 116/62 06/06/2019 7:10 AM ELECTRICITY TRADER Pulse 61 06/06/2019 7:10 AM ELECTRICITY TRADER Temperature 36.1 C (96.9 F) 06/06/2019 7:10 AM ELECTRICITY TRADER Respiratory Rate 20 06/06/2019 10:14 AM ELECTRICITY TRADER Oxygen Saturation 99% 06/06/2019 7:10 AM ELECTRICITY TRADER Inhaled Oxygen Concentration - - Weight 77.1 kg (170 lb) 06/06/2019 7:10 AM ELECTRICITY TRADER Height 167.6 cm (5' 6 ) 06/06/2019 7:10 AM ELECTRICITY TRADER Body Mass Index 27.44 06/06/2019 7:10 AM ELECTRICITY TRADER Procedures * AZ IRIDOTOMY LT(Performed 06/06/2019) Performed for Angle-closure glaucoma, secondary, left, stage unspecified Results * AZ IRIDOTOMY LT (06/06/2019 3:38 PM ELECTRICITY TRADER) Narrative Shayan Lamb MD - 06/06/2019 3:38 PM ELECTRICITY TRADER Audelia Beaulieu MD 06/10/2019 4:14 PM Laser [...]
--- OUTSIDE RECORDS SUMMARY | 2024-07-14 16:33 | XMS_ITS | Encounter Summary ---
Author Organization [facility] Address [address] [place] [address] Phone Care Team Providers Care Door Manager Name Role Phone Yaw Sol MD Primary Care Provider [phone] Provider, Unknown Primary Care Provider Unavaila ble Provider, None Primary Care Provider Unavailabl e Provider, Unknown Unavailable Unavailable Reason for Visit * Reason Comments Medication Refill Encounter Details Date Type Department Care Team (Late st Contact Info) Description 07/31/2022 Refill [facility] Family [facility] [address] [place] [phone] Yaw Sol MD [address] [place] [address] Medication Refill Social History Tobacco Use Types [...] documented as of this encounter Care Teams Door Manager Relationship Specialty Start Date End Date Yaw Sol MD PCP - General Family Medicine 06/18/20 10/18/22 Provider, Unknown UNKNOWN PCP - General 10/23/22 04/10/23 Provider, None [place] PCP - General 04/11/23 Provider, Unknown UNKNOWN 04/11/23 documented as of this encounter
--- OUTSIDE RECORDS SUMMARY | 2024-07-14 16:33 | XMS_ITS | Referral Summary ---
Author Organization [facility] Address [address] [place] [address] Care Team Providers Care Car Coupler Name Role Phone Miscellaneous, Not In File [...] with motrin as needed Cerebrovascular [facility] ([facility]A) ([facility]) Assessment & Plan (10/14/2021 12:45 AM CDT): H/o L MCA CVA. Patient had expressive aphasia and right sided weakness from review of EMR. Unclear what residual deficits patient had. Patient also reports being admitted 1 month ago at [place] for CVA. Will need to obtain records. [...] may need MRI to r/o new CVA. SUPERVISOR PHOTOENGRAVING consulted. Will need to obtain records from patient's admission 1month ago at [place]. Immunizations Immunization Administration Dates Next Due Tdap [...] on file Legal Sex Male 7:03 PM TAIL PULLER Gender Identity Not on file Sexual Orientation [...] PELVIS W CONTRAST ED 05/24/2020 6:38 PM TAIL PULLER from Last 3 Months or Most Recently Relevant to Health Maintenance Results * CT Abdomen Pelvis W Contrast (05/24/2020 6:38 PM TAIL PULLER) Anatomical Region Laterality Modality Body N/A Computed Tomogra phy 05/24/2020 6:28 PM TAIL PULLER Impressions 05/24/2020 6:52 PM TAIL PULLER No acute inflammatory process is noted. No cholecystitis. Normal appendix. Diverticulosis without diverticulitis THIS IS AN ELECTRONICALLY VERIFIED FINAL REPORT 05/24/2020 6:48 PM - Electronically signed by Alvino Cruz M.D. NC: JESSIE Report ID: [id number] Reading Location: [id number] [facility] 05/24/2020 6:52 PM TAIL PULLER [facility] Imaging Result Name: BENITO CISSE Ordering Phys: TRI GÓMEZ Age: 69 Date of : 1950 Accession Number: [id number] Date of Service: 05/24/2020 Gender: M EXAM [...] Note Alvino Cruz MD - 05/24/2020 [facility] Imaging Result Name: BENITO CISSE Ordering Phys: TRI GÓMEZ Age: 69 Date of : 1950 Accession Number: [id number] Date of Service: 05/24/2020 Gender: M EXAM [...] Alvino Cruz M.D. NC: JESSIE Report ID: [id number] Reading Location: [place] [address] Tri Gómez MD IMG CT PROCEDURES F inal Result from Last 3 Months or Most Recently Relevant to Health Maintenance Insurance IDWA WELLCARE MEDICARE HMO MEDICARE HIPA [facility] MEDICARE HMO MANAGED MEDICARE GENERIC RISK OTHER [facility] Member Subscriber Plan / Payer (Ef fective 2021-Present) Name:Benito Cisse Member ID:[id number] Relation to Subscriber:Self Name:Benito Cisse Subscriber ID:[id number] Payer ID:[id number] (NAIC) Group ID:Not on file Type:MEDICARE RISK OTHER Address: [facility] ATTN: CLAIMS [address] [place] [id number] [place] [address] WELLCARE MEDICARE HMO Advance Directives For more information, please contact: [phone] * Full Code (Latest Code Status on [...] 11:22 AM 09/24/2018 5:51 PM Care Teams Car Coupler Relationship Specialty [place] [id number] [place] [address] PCP - General Family Medicine 05/24/20 Miscellaneous, Not In File 08/20/18
[2024-07-14 16:45] LABS: Alanine Aminotransferase 10 U/L (6-50); Albumin Level 4.1 g/dL (3.5-5.1); Alkaline Phosphatase 69 U/L (38-126); Anion Gap 7 mmol/L (4-12); Aspartate Amino Transferase 18 U/L (17-59); Bilirubin,Total 0.5 mg/dL (0.2-1.3); Blood Urea Nitrogen 25 mg/dL (9-20); Calcium 8.6 mg/dL (8.4-10.2); Carbon Dioxide 27 mmol/L (22-30); Chloride 109 mmol/L (98-107); Estimated CRCL calculation 53 ml/min; Estimated Glomerular Filt Rate > 60; Glucose 81 mg/dL (65-110); Potassium 4.2 mmol/L (3.4-5.0); Sodium 143 mmol/L (137-145)
--- NOTE | 2024-07-14 16:45 | PC.NURSE ---
Pt. daughter Gina Cisse updated over the phone at this time with the pt. permission.
[2024-07-14 17:00] LABS: NT Pro B Type Natriuretic Pept 103 pg/mL (19.9-100)
== END 2024-07-14 17:24 | disposition home or self-care (01) ==
LOC: ANHED 16:31
PROVIDERS: Emergency Medicine; Emergency Provider Physician Assistant
DX: J18.9 Pneumonia, unspecified organism (principal); Z20.822 Contact with and (suspected) exposure to COVID-19; I50.9 Heart failure, unspecified; M19.90 Unspecified osteoarthritis, unspecified site; Z86.2 Personal history of diseases of the blood and blood-forming organs and certain disorders involving the immune mechanism; Z96.652 Presence of left artificial knee joint
CPT/HCPCS: 36415; 71046; 71250; 80053; 83880; 85025; 87637; 99284; A9270

== ENCOUNTER 2024-09-17 02:33 | Emergency (ER) | payer MEDICARE, MEDICAID, SELFPAY ==
--- NOTE | ~2024-09-17 | XR_ITS ---
XR chest 2V Ordering provider: Griselda Alex History: 73 years Male with . CHEST PAIN . Comparison: September 13, 2024 FINDINGS: MEDIASTINUM: The cardiac silhouette is not enlarged. prominent both marlin. LUNGS: No infiltrates, effusions or pneumothorax. Underlying fibrotic changes. OTHER: No free air under the diaphragm. Degenerative changes of the spine. IMPRESSION: No acute cardiopulmonary pathology. Reviewed, dictated and finalized at location A.
[2024-09-17 02:34] VITALS: PULSE 79; RESP 15; O2SAT 99
--- OUTSIDE RECORDS SUMMARY | 2024-09-17 02:35 | XMS_ITS | Encounter Summary ---
Author Organization [facility] Address [address] [place] [address] Phone Care Team Providers Care Lacquer Machine Feeder Name Role Phone Yaw Sol MD Primary Care Provider [phone] Provider, Unknown Primary Care Provider Unavaila ble Provider, None Primary Care Provider Unavailabl e Provider, Unknown Unavailable Unavailable Reason for Visit * Reason Comments Medication Refill Encounter Details Date Type Department Care Team (Late st Contact Info) Description 07/02/2022 Refill [facility] [address] [place] [phone] Yaw Sol MD [address] [place] [address] Medication Refill Social History Tobacco Use Types [...] Chey Crane RMA - 07/05/2022 9:19 AM DOOR TO DOOR SALES REPRESENTATIVE Mailed letter TO DOOR SALES REPRESENTATIVE * Telephone Encounter - Kristina Cotton RN - 07/02/2022 5:19 PM CST Needs OV with PCP TO DOOR SALES REPRESENTATIVE * Telephone Encounter - Kristina Cotton RN [...] LDL, HDLCHOLESTE, CHOLESTEROL, TRIGLYCRIDES, VLDL, CHDL, HDLNON TO DOOR SALES REPRESENTATIVE documented in this encounter Plan of Treatment [...] documented as of this encounter Care Teams Lacquer Machine Feeder Relationship Specialty Start Date End Date Yaw Sol MD PCP - General Family Medicine 06/18/20 10/18/22 Provider, Unknown UNKNOWN PCP - General 10/23/22 04/10/23 Provider, None [place] PCP - General 04/11/23 Provider, Unknown UNKNOWN 04/11/23 documented as of this encounter
--- OUTSIDE RECORDS SUMMARY | 2024-09-17 02:35 | XMS_ITS | Encounter Summary ---
Author Organization [facility] Address [address] [place] [address] Phone Care Team Providers Care Explosives Mixer Operator Name Role Phone Yaw Sol MD Primary Care Provider [phone] Provider, Unknown Primary Care Provider Unavaila ble Provider, None Primary Care Provider Unavailabl e Provider, Unknown Unavailable Unavailable Lanie Whitaker Unavailable Unavailab le Reason for Visit * Reason Comments Medication Refill Encounter Details Date Type Department Care Team (Late st Contact Info) Description 11/27/2021 Refill [facility] - Family Medicine [facility] [address] [place] [phone] Darek Salamanca, RAFITA, WINTER INTERN [address] [address] Medication Refill Social History Tobacco Use Types [...] documented as of this encounter Care Teams Explosives Mixer Operator Relationship Specialty Start Date End Date Yaw Sol MD PCP - General Family Medicine 06/18/20 10/18/22 Provider, Unknown UNKNOWN PCP - General 10/23/22 04/10/23 Provider, None [place] PCP - General 04/11/23 Provider, Unknown UNKNOWN 04/11/23 Lanie Whitaker LSW [place] Bi Tester 01/26/21 12/17/21 documented as of this encounter
--- OUTSIDE RECORDS SUMMARY | 2024-09-17 02:35 | XMS_ITS | Clinical Summary ---
Author Organization [facility] Address [address] [address] Phone Care Team Providers Care Die Sizer Name Role Phone Provider, None Primary Care [...] Lnp-s, Pf, 3 0 Mcg/0.3 Ml Dose ([employer]) 06/05/2021 TDAP Vaccine 06/02/2020,01/02/2019,12/08/2016 Tuberculin Skin Test; [...] age to complete this topic Insurance MED[place]ID [place] MEDICARE C [facility] C [facility] Advance Directives * Full Code (Latest Code Status on File) Date Activated Date Inactivated Comments 11/26/2020 10:26 AM 07/22/2021 4:56 AM Care Teams Die Sizer Relationship Specialty Start Date End Date Provider, None [place] PCP - General 04/11/23 Provider, Unknown UNKNOWN 04/11/23
--- OUTSIDE RECORDS SUMMARY | 2024-09-17 02:35 | XMS_ITS | Referral Summary ---
Author Organization [facility] Address [address] [place] [address] Care Team Providers Care Shale Miner Name Role Phone Miscellaneous, Not In File [...] as needed Cerebrovascular accident (CVA) ([facility]) Assessment & Plan (10/14/2021 12:45 AM CDT): H/o L MCA CVA. Patient had expressive aphasia and right sided weakness from review of EMR. Unclear what residual deficits patient had. Patient also reports being admitted 1 month ago at [place] for CVA. Will need to obtain records. [...] may need MRI to r/o new CVA. AIRPORT OPERATIONS COORDINATOR consulted. Will need to obtain records from patient's admission 1month ago at [place]. Immunizations Immunization Administration Dates Next Due Tdap [...] on file Legal Sex Male 7:03 PM LITHOGRAPHIC PROOFER APPRENTICE Gender Identity Not on file Sexual Orientation [...] PELVIS W CONTRAST ED 05/24/2020 6:38 PM LITHOGRAPHIC PROOFER APPRENTICE from Last 3 Months or Most Recently Relevant to Health Maintenance Results * CT Abdomen Pelvis W Contrast (05/24/2020 6:38 PM LITHOGRAPHIC PROOFER APPRENTICE) Anatomical Region Laterality Modality Body N/A Computed Tomogra phy 05/24/2020 6:28 PM LITHOGRAPHIC PROOFER APPRENTICE Impressions 05/24/2020 6:52 PM LITHOGRAPHIC PROOFER APPRENTICE No acute inflammatory process is noted. No cholecystitis. Normal appendix. Diverticulosis without diverticulitis THIS IS AN ELECTRONICALLY VERIFIED FINAL REPORT 05/24/2020 6:48 PM - Electronically signed by Alvino Cruz M.D. NC: JESSIE Report ID: [id number] Reading Location: [id number] [facility] 05/24/2020 6:52 PM LITHOGRAPHIC PROOFER APPRENTICE [facility] Imaging Result Name: BENITO CISSE Ordering Phys: ANN GÓMEZ Age: 69 Date of : 1950 Accession Number: [id number] Date of Service: 05/24/2020 Gender: M EXAM [...] Procedure Note Alvino Cruz MD - 05/24/2020 [facility] Imaging Result Name: BENITO CISSE Ordering Phys: ANN GÓMEZ Age: 69 Date of : 1950 Accession Number: [id number] Date of Service: 05/24/2020 Gender: M EXAM [...] Alvino Cruz M.D. NC: JESSIE Report ID: [id number] Reading Location: [place] [address] Ann Gómez MD IMG CT PROCEDURES F inal Result from Last 3 Months or Most Recently Relevant to Health Maintenance [place] [address] WELLCARE MEDICARE HMO MEDICARE [facility] MEDICARE HMO MANAGED MEDICARE GENERIC RISK OTHER [facility] Member Subscriber Plan / Payer (Ef fective 2021-Present) Name:Benito Cisse Member ID:[id number] Relation to Subscriber:Self Name:Benito Cisse Subscriber ID:[id number] Payer ID:[id number] (NAIC) Group ID:Not on file Type:MEDICARE RISK OTHER Address: [facility] ATTN: CLAIMS [address] [place] [id number] [place] [address] WELLCARE MEDICARE HMO Advance Directives For more information, please contact: [phone] * Full Code (Latest Code Status on [...] 11:22 AM 09/24/2018 5:51 PM Care Teams Shale Miner Relationship Specialty [place] [address] [place] [address] PCP - General Family Medicine 05/24/20 Miscellaneous, Not In File 08/20/18
--- OUTSIDE RECORDS SUMMARY | 2024-09-17 02:35 | XMS_ITS | Encounter Summary ---
Author Organization [facility] Address [address] [place] [address] Phone Care Team Providers Care Speech Language Specialist Name Role Phone Yaw Sol MD Primary Care Provider [phone] Provider, Unknown Primary Care Provider Unavaila ble Provider, None Primary Care Provider Unavailabl e Provider, Unknown Unavailable Unavailable Reason for Visit * Reason Comments Medication Refill Encounter Details Date Type Department Care Team (Late st Contact Info) Description 08/27/2022 Refill [facility] [address] [place] [phone] Yaw Sol MD [address] [place] [address] Medication Refill Social History Tobacco Use Types [...] Provider Dept 09/10/22 Appointment Yaw Sol MD [facility] Showing future appointments within next 90 days [...] documented as of this encounter Care Teams Speech Language Specialist Relationship Specialty Start Date End Date Yaw Sol MD PCP - General Family Medicine 06/18/20 10/18/22 Provider, Unknown UNKNOWN PCP - General 10/23/22 04/10/23 Provider, None [place] PCP - General 04/11/23 Provider, Unknown UNKNOWN 04/11/23 documented as of this encounter
--- OUTSIDE RECORDS SUMMARY | 2024-09-17 02:35 | XMS_ITS | Encounter Summary ---
Author Organization [facility] Address [address] [place] [address] Phone Care Team Providers Care Volunteer Specialist Name Role Phone Yaw Sol MD Primary Care Provider [phone] Provider, Unknown Primary Care Provider Unavaila ble Provider, None Primary Care Provider Unavailabl e Provider, Unknown Unavailable Unavailable Reason for Visit * Reason Comments Medication Refill Encounter Details Date Type Department Care Team (Late st Contact Info) Description 07/31/2022 Refill [facility] [address] [place] [phone] Yaw Sol MD [address] [place] [address] Medication Refill Social History Tobacco Use Types [...] documented as of this encounter Care Teams Volunteer Specialist Relationship Specialty Start Date End Date Yaw Sol MD PCP - General Family Medicine 06/18/20 10/18/22 Provider, Unknown UNKNOWN PCP - General 10/23/22 04/10/23 Provider, None [place] PCP - General 04/11/23 Provider, Unknown UNKNOWN 04/11/23 documented as of this encounter
--- OUTSIDE RECORDS SUMMARY | 2024-09-17 02:35 | XMS_ITS | Encounter Summary ---
Author Organization [facility] Address [address] [place] [address] Phone Care Team Providers Care Sample Prep Technician Name Role Phone Yaw Sol MD Primary Care Provider [phone] Provider, Unknown Primary Care Provider Unavaila ble Provider, None Primary Care Provider Unavailabl e Provider, Unknown Unavailable Unavailable Reason for Visit * Reason Comments Medication Refill Encounter Details Date Type Department Care Team (Late st Contact Info) Description 06/25/2022 Refill [facility] [address] [place] [phone] Yaw Sol MD [address] [place] [address] Medication Refill Social History Tobacco Use Types [...] Na Bustamante RN - 06/28/2022 8:21 AM EDGER TAILER Patient needs appointment. Medication failed the protocol, [...] 90 days and meeting all other requirements R TAILER documented in this encounter Plan of Treatment [...] documented as of this encounter Care Teams Sample Prep Technician Relationship Specialty Start Date End Date Yaw Sol MD PCP - General Family Medicine 06/18/20 10/18/22 Provider, Unknown UNKNOWN PCP - General 10/23/22 04/10/23 Provider, None [place] PCP - General 04/11/23 Provider, Unknown UNKNOWN 04/11/23 documented as of this encounter
--- OUTSIDE RECORDS SUMMARY | 2024-09-17 02:35 | XMS_ITS | Clinical Summary ---
Author Organization [facility] Address [address] [place] [address] Care Team Providers Care Automat Car Attendant Name Role Phone Miscellaneous, Not In File [...] with motrin as needed Cerebrovascular accident (CVA) ([facility]) Assessment & Plan (10/14/2021 12:45 AM CDT): [...] may need MRI to r/o new CVA. WORKERS' COMPENSATION CLAIMS EXAMINER consulted. Will need to obtain records from patient's admission 1month ago at [place]. Immunizations Immunization Administration Dates Next Due Tdap 01/02/2019,12/08/2016 Surgical History Surgery Date Site/Laterality Comments JOINT REPLACEMENT Left knee BACK SURGERY Medical History Medical History Date Comments Arthritis COPD (chronic obstructive pulmonary disease) ( C) Stroke ([facility]) Social History Tobacco Use Types [...] on file Legal Sex Male 7:03 PM ART DEPARTMENT HEAD Gender Identity Not on file Sexual Orientation [...] Vaccine (2 - season) 01/01/202407/2021 Influenza Vaccine (Season Ended) 2024 05/24/19 19 DTaP/Tdap/Td Vaccine (4 - Td or Tdap) 06/02/2030 06/02/2020, 01/02/2019, 12/08/2016 Abdominal Aortic Aneurysm (A AA) Screen Completed 05/24/2020, 02/14/2017, 12/25/2016 Procedures Procedure Name Priority Date/Time Associated Diagnosis Comments CT ABDOMEN PELVIS W CONTRAST ED 05/24/2020 6:38 PM ART DEPARTMENT HEAD from Last 3 Months or Most Recently Relevant to Health Maintenance Results * CT Abdomen Pelvis W Contrast (05/24/2020 6:38 PM ART DEPARTMENT HEAD) Anatomical Region Laterality Modality Body N/A Computed Tomogra phy 05/24/2020 6:28 PM ART DEPARTMENT HEAD Impressions 05/24/2020 6:52 PM ART DEPARTMENT HEAD No acute inflammatory process is noted. No cholecystitis. Normal appendix. Diverticulosis without diverticulitis THIS IS AN ELECTRONICALLY VERIFIED FINAL REPORT 05/24/2020 6:48 PM - Electronically signed by Alvino Cruz M.D. NC: JESSIE Report ID: [id number] Reading Location: [id number] [facility] 05/24/2020 6:52 PM ART DEPARTMENT HEAD [facility] Imaging Result Name: BENITO CISSE Ordering Phys: TRI GÓMEZ Age: 69 Date of : 1950 Accession Number: [id number] Date of Service: 05/24/2020 Gender: M EXAM [...] Procedure Note Alvino Cruz MD - 05/24/2020 [facility] Imaging Result Name: BENITO CISSE Ordering Phys: TRI GÓMEZ Age: 69 Date of : 1950 Accession Number: [id number] Date of Service: 05/24/2020 Gender: M EXAM [...] Alvino Cruz M.D. NC: JESSIE Report ID: [id number] Reading Location: [id number] Tri Gómez MD IMG CT PROCEDURES F inal Result from Last 3 Months or Most Recently Relevant to Health Maintenance Insurance [employer] WELLCARE MEDICARE HMO MEDICARE [facility] MEDICARE HMO [facility] MEDICARE GENERIC RISK OTHER [facility] [place] IDPA WELLCARE MEDICARE HMO Advance Directives For more information, please contact: [phone] * Full Code (Latest Code Status on [...] 11:22 AM 09/24/2018 5:51 PM Care Teams Automat Car Attendant Relationship Specialty [place] [address] [place] [address] PCP - General Family Medicine 05/24/20 Miscellaneous, Not In File 08/20/18
--- OUTSIDE RECORDS SUMMARY | 2024-09-17 02:35 | XMS_ITS | Clinical Summary ---
Author Organization [facility] Address [address] [place] [address] Care Team Providers Care Captain Fishing Vessel Name Role Phone Unavailable Primary Care Provider Unavailabl e Source Comments [facility],non-owned Affiliates and Associated Physician Practices is amultiple site organization consisting of ambulatory clinics and hospital sitesin [place], [place], [place] and [place]. This disclosure is being madepursuant to the Care Everywhere program and may not contain all information available regarding this patient. Last updated 18.[facility] [employer] Allergies No known active allergies Medications * Be aware that medications may not be up to date on this document. Alwaysverify current medications with the patient. No known [...] at Not on file Legal Sex Male 4:51 PM SERVICE RIG OPERATOR Gender Identity Not on file Sexual Orientation Not on file Last Filed Vital Signs Vital Sign Reading Time Taken Comments Blood Pressure 116/62 06/06/2019 7:10 AM SERVICE RIG OPERATOR Pulse 61 06/06/2019 7:10 AM SERVICE RIG OPERATOR Temperature 36.1 C (96.9 F) 06/06/2019 7:10 AM SERVICE RIG OPERATOR Respiratory Rate 20 06/06/2019 10:14 AM SERVICE RIG OPERATOR Oxygen Saturation 99% 06/06/2019 7:10 AM SERVICE RIG OPERATOR Inhaled Oxygen Concentration - - Weight 77.1 kg (170 lb) 06/06/2019 7:10 AM SERVICE RIG OPERATOR Height 167.6 cm (5' 6 ) 06/06/2019 7:10 AM SERVICE RIG OPERATOR Body Mass Index 27.44 06/06/2019 7:10 AM SERVICE RIG OPERATOR Plan of Treatment Health Maintenance Due Date [...] Tdap) 12/13/1970 PNEUMOCOCCAL VACCINE 50+ (1 of 1 - PCV) 12/13/2001 ZOSTER VACCINE (1 of 2) 12/13/2001 AAA SCREENING 12/13/2016 SCREENING FOR DIABETES 06/06/2019 COVID-19 VACCINE (1 - 2023-2 5 season) 2024 DEPRESSION SCREENING 05/02/2024 INFLUENZA VACCINE (Season Ended) 2024 Respiratory Syncytial Virus (RSV) Vaccine Pt: [...] age to complete this topic Insurance MEDICAID - OUT [place] [address] MEDICA[place]ENEF[place] - [place]LL[place]ARE
--- OUTSIDE RECORDS SUMMARY | 2024-09-17 02:35 | XMS_ITS | Encounter Summary ---
Author Organization [facility] Address [address] [place] [address] Phone Care Team Providers Care Rip Machine Operator Name Role Phone Yaw Sol MD Primary Care Provider Provider, Unknown Primary Care Provider Unavaila ble Provider, None Primary Care Provider Unavailabl e Provider, Unknown Unavailable Unavailable Lanie Whitaker FUR MATCHER Unavailable Unavailab le Reason for Visit * Reason Comments Medication Refill Encounter Details Date Type Department Care Team (Late st Contact Info) Description 10/28/2021 [facility] [address] [place] [phone] Yaw Sol MD [address] [place] [address] Medication Refill Social History Tobacco Use Types [...] Sol MD [facility] 01/26/21 Office Visit aYw Sol MD [facility] 12/10/20 Office Visit Yaw Sol MD [facility] 11/12/20 Office Visit Darek Salamanca, SINGLE NEEDLE OPERATOR, PHYSICAL METEOROLOGIST [facility] Showing recent visits within past [...] [facility] 11/12/20 Office Visit Darek Salamanca APRN, PHYSICAL METEOROLOGIST [facility] [place] Showing recent visits within past 365 days [...] documented as of this encounter Care Teams Rip Machine Operator Relationship Specialty Start Date End Date Yaw Sol MD PCP - General Family Medicine 06/18/20 10/18/22 Provider, Unknown UNKNOWN PCP - General 10/23/22 04/10/23 Provider, None [place] PCP - General 04/11/23 Provider, Unknown UNKNOWN 04/11/23 Lanie Whitaker LSW [place] Poultry Farmer Meat 01/26/21 12/17/21 documented as of this encounter
--- NOTE | 2024-09-17 02:38 | ECG_ITS ---
Test Date: 2024-09-17 02:44:15 Measurements Intervals [place] Rate: 79 P: 66 [place]: 194 QRS: 73 QRSD: 101 T: 73 QT: 384 QTc: 441 Interpretive Statements SINUS RHYTHM Compared to ECG 03/20/2024 01:17:54 No significant changes Electronically Signed On 09-17-2024 10:49:14 CDT by Devin Johnson M.D.
[2024-09-17 03:04] LABS: Basophils Percent Auto 0.5 % (0.2-1.2); Eosinophils Percent Auto 0.5 % (0-4.4); Hematocrit 43.7 % (42.0-52.0); Hemoglobin 13.3 g/dL (14.0-18.0); Immature Granulocyte Absolute 0.02 K/mm3 (0.00-0.031); Immature Granulocyte Percent A 0.2 % (0-0.5); Lymphocytes Absolute Auto 2.06 K/mm3 (0.9-3.2); Lymphocytes Percent Auto 24.9 % (18.3-44.2); Mean Corpuscular HGB Conc 30.4 g/dl (32-36); Mean Corpuscular Hemoglobin 29.3 pg (26-34); Mean Corpuscular Volume 96.3 fl (80-100); Mean Platelet Volume 9.5 fl (7.4-10.4); Monocytes Absolute Auto 0.4 K/mm3 (0.1-0.6); Monocytes Percent Auto 5.2 % (2.6-8.5); Neutrophils Absolute Auto 5.7 K/mm3 (1.3-6.7); Neutrophils Percent Auto 68.7 % (45.5-73.1); Platelet Count Result 332 k/mm3 (150-375); Red Blood Count 4.54 M/mm3 (4.6-6.20); Red Cell Distribution Width 13.7 % (11.5-14.5); White Blood Count 8.3 K/mm3 (4.5-10.0)
[2024-09-17 03:18] LABS: Alanine Aminotransferase 18 U/L (6-50); Alkaline Phosphatase 53 U/L (38-126); Anion Gap 7 mmol/L (4-12); Aspartate Amino Transferase 34 U/L (17-59); Bilirubin,Total 0.7 mg/dL (0.2-1.3); Blood Urea Nitrogen 19 mg/dL (9-20); Calcium 8.1 mg/dL (8.4-10.2); Carbon Dioxide 23 mmol/L (22-30); Chloride 106 mmol/L (98-107); Estimated CRCL calculation 66 ml/min; Estimated Glomerular Filt Rate > 60; Glucose 165 mg/dL (65-110); Sodium 136 mmol/L (137-145)
[2024-09-17 03:19] LABS: INR 1.1; Prothrombin Time 14.3 Seconds (11.1-14.7)
[2024-09-17 03:20] LABS: Partial Thromboplastin Time 30.4 Seconds (22.3-36.8)
[2024-09-17 03:26] LABS: Troponin I < 0.012 ng/mL (0.000-0.034)
[2024-09-17 03:47] LABS: Lipase 240 U/L (23-300)
--- NOTE | 2024-09-17 04:28 | ED_ITS ---
HPI - Chest Pain General Chief Complaint: Chest Pain Stated Complaint: chest pain, cough Time Seen by Provider: 09/17/24 04:27 History of Present Illness HPI narrative: Patient states for the last week to 2 he has been having coughing, he then started having chest pain today which scared him so he came in today. Still actively smoking. Related Data Home Medications Medication Instructions Recorded Confirmed Last Taken Type naproxen 500 mg tablet 500 mg PO BID PRN Pain (Scale 12/01/23 12/01/23 Unknown History Score 1-3) Allergies Allergy/AdvReac Type Severity Reaction Status Date / Time No Known Allergies Allergy Verified 09/17/24 02:37 Review of Systems 2 Review of Systems: All systems reviewed & are unremarkable except as noted in HPI and below PMFSH Past Medical History Medical History Cocaine abuse Tobacco abuse Normocytic anemia History of depression History of anxiety History of CHF (congestive heart failure) Arthritis Surgical History Surgical History History of left knee replacement Social History Social History Smoking packs per day: 1 Smoking cigarettes per day: 20.0 Smoking status: Current every day smoker Alcohol intake: never Substance use: current Substance use type: crack/cocaine Last use: POSITIVE LABS ON ADMISSION Do You Feel Safe in your Home?: Yes Lack of Transportation: YES Lack of Food: Sometimes True Current Housing: I Do Not Have Housing Concerned About Future Housing: YES Difficulty Paying Gas/Electric Bills: YES Difficulty Paying for Meds: YES Currently Unemployed: YES Education: Don't Know Difficulty w/ Childcare or Family Care: No Gender identity (if verbalized by the patient): Male Spiritual care concerns: No Exam 2 Narrative: EXAMINATION OF ORGAN SYSTEMS/BODY AREAS: Constitutional: Vital signs per nursing GENERAL:[No acute distress, non-toxic appearing.] HEAD: Normal with no signs of head trauma. EYES: EOMI, conjunctiva normal ENT: Hearing grossly intact LUNGS: Nonlabored breathing. Slight diminished lung sounds with prolonged and x-ray face HEART: [Regular rate and rhythm] ABD: [Soft], [nontender to palpation] EXT: Normal range of motion SKIN: [No rashes or lesions.] NEURO: [Alert and oriented x 3. No gross focal sensory or strength deficits.] PSYCH: Normal affect Course Vital Signs Vital signs: Vital Signs Pulse Rate 79 09/17/24 02:34 Respiratory Rate 15 09/17/24 02:34 Pulse Oximetry 99 09/17/24 02:34 Oxygen Delivery Room Air 09/17/24 02:34 Pulse Rate 73 09/17/24 04:57 Respiratory Rate 20 09/17/24 04:57 Blood Pressure 132/62 09/17/24 04:41 Pulse Oximetry 95 09/17/24 04:51 Oxygen Delivery Room Air 09/17/24 04:51 Fraction of Inspired Oxygen 21 09/17/24 04:51 MDM - Chest Pain MDM Narrative Medical decision making narrative: 73-year-old male presents with coughing the past 1-2 weeks now with some chest pain with coughing EKG on my independent interpretation shows sinus rhythm rate 79, MA 194, QRS 101, QTC 441, normal axis, no significant ST elevations or depressions signs of acute ischemia or arrhythmia Chest x-ray on my independent interpretation does show some possible bilateral reticular linear opacities consistent for possible bronchitis Labs including troponin thankfully negative. Patient given breathing treatments, steroids, azithromycin, feeling better on re-evaluation and I do feel stable for discharge with strict return precautions and follow-up outpatient. Lab Data 09/17/24 02:49 09/17/24 02:49 Labs: Lab Results 09/17/24 Range/Units 02:49 WBC 8.3 (4.5-10.0) K/mm3 RBC 4.54 L (4.6-6.20) M/mm3 Hgb 13.3 L (14.0-18.0) g/dL Hct 43.7 (42.0-52.0) % MCV 96.3 (80-100) fl MCH 29.3 (26-34) pg MCHC 30.4 L (32-36) g/dl RDW 13.7 (11.5-14.5) % Plt Count 332 (150-375) k/mm3 MPV 9.5 (7.4-10.4) fl Immature Gran % (Auto) 0.2 (0-0.5) % Neut % (Auto) 68.7 (45.5-73.1) % Lymph % (Auto) 24.9 (18.3-44.2) % Morton % (Auto) 5.2 (2.6-8.5) % Eos % (Auto) 0.5 (0-4.4) % Baso % (Auto) 0.5 (0.2-1.2) % Lymph # (Auto) 2.06 (0.9-3.2) K/mm3 Morton # (Auto) 0.4 (0.1-0.6) K/mm3 Eos # (Auto) 0.0 (0-0.3) K/mm3 Baso # (Auto) 0.0 (0.0-0.1) K/mm3 Abs Immat Gran (auto) 0.02 (0.00-0.031) K/mm3 Absolute Neuts (auto) 5.7 (1.3-6.7) K/mm3 Absolute Nucleated RBC 0.000 (0.0-0.012) K/mm3 Nucleated RBC % 0.0 (0.0-0.2) % PT 14.3 (11.1-14.7) Seconds INR 1.1 APTT 30.4 (22.3-36.8) Seconds Sodium 136 L (137-145) mmol/L Potassium 4.0 (3.4-5.0) mmol/L Chloride 106 (98-107) mmol/L Carbon Dioxide 23 (22-30) mmol/L Anion Gap 7 (4-12) mmol/L BUN 19 (9-20) mg/dL Creatinine 0.79 (0.7-1.3) mg/dL Estim Creat Clear Calc 66 ml/min Estimated GFR > 60 (59 - ) Glucose 165 H (65-110) mg/dL Calcium 8.1 L (8.4-10.2) mg/dL Total Bilirubin 0.7 (0.2-1.3) mg/dL AST 34 (17-59) U/L ALT 18 (6-50) U/L Alkaline Phosphatase 53 (38-126) U/L Troponin I < 0.012 (0.000-0.034) ng/mL Total Protein 7.0 (6.3-8.2) g/dL Albumin 4.0 (3.5-5.1) g/dL Lipase 240 (23-300) U/L Discharge Plan Discharge Clinical Impression: Atypical chest pain, Acute bronchitis Patient Disposition: Home Condition: Stable Instructions: Chest Pain (ED), Acute Bronchitis (ED) Additional Instructions: Please stop smoking. Take the antibiotics and medications as prescribed come back if you feel worse. Please follow up with your doctor; you can always return for any further issues. Patient Language: Angolan Prescriptions: New azithromycin 250 mg tablet 250 mg PO DAILY 4 Days Qty: 4 0RF Rx Instructions: start on day 2 of therapy prednisone 20 mg tablet 40 mg PO DAILY 4 Days Qty: 8 0RF albuterol sulfate 90 mcg/actuation HFA aerosol inhaler 2 puff inhalation QID PRN (Reason: shortness of breath or wheezing) Qty: 8.5 0RF No Action naproxen 500 mg tablet 500 mg PO BID PRN (Reason: Pain (Scale Score 1-3)) amoxicillin-pot clavulanate 875-125 mg tablet 1 tablet PO Q12H Qty: 14 0RF prednisone 20 mg tablet 40 mg PO DAILY Qty: 10 0RF albuterol sulfate 90 mcg/actuation HFA aerosol inhaler 1 inh inhalation QID PRN (Reason: shortness of breath or wheezing) Qty: 6.7 0RF lidocaine 5 % adhesive patch,medicated 1 patch topical DAILY Qty: 15 0RF Rx Instructions: leave on most painful area for up to 12 hrs naproxen 500 mg tablet 500 mg PO BID PRN (Reason: pain) Qty: 20 0RF amoxicillin 500 mg capsule 1,000 mg PO Q8H 5 Days Qty: 30 0RF azithromycin 250 mg tablet See Rx Instructions .ROUTE .COMPLEX Qty: 6 0RF Rx Instructions: For 250 mg dose pack: take 500 mg today (day 1), then 250 mg for 4 days (days 2-5) Follow-up/Referrals: PHYSICIAN,MARKING DEVICES ASSEMBLER [Primary Care Provider] -
[2024-09-17] MEDS: AZITHROMYCIN 250 MG TABLET 500 MG PO (04:40)
[2024-09-17 04:41] VITALS: BP 132/62; PULSE 75; RESP 16; O2SAT 100; O2SAT 97
[2024-09-17] MEDS: predniSONE 20 MG TABLET 40 MG PO (04:41)
[2024-09-17] MEDS: IPRATROPIUM 0.5 MG/ALBUTEROL SULFATE 2.5 MG AMPUL.NEB 3 ML INHALATION (04:48)
[2024-09-17 04:49] VITALS: PULSE 77; RESP 20
[2024-09-17 04:51] VITALS: O2SAT 95
--- OUTSIDE RECORDS SUMMARY | 2024-09-17 04:52 | XMS_ITS | Encounter Summary ---
Author Organization [facility] Address [address] [place] [address] Phone Care Team Providers Care Fish Salter Name Role Phone Yaw Sol MD Primary Care Provider [phone] Provider, Unknown Primary Care Provider Unavaila ble Provider, None Primary Care Provider Unavailabl e Provider, Unknown Unavailable Unavailable Reason for Visit * Reason Comments Medication Refill Encounter Details Date Type Department Care Team (Late st Contact Info) Description 07/31/2022 Refill [facility] [address] [place] [phone] Yaw Sol MD [address] [place] [address] Medication Refill Social History Tobacco Use Types [...] documented as of this encounter Care Teams Fish Salter Relationship Specialty Start Date End Date Yaw Sol MD PCP - General Family Medicine 06/18/20 10/18/22 Provider, Unknown UNKNOWN PCP - General 10/23/22 04/10/23 Provider, None [place] PCP - General 04/11/23 Provider, Unknown UNKNOWN 04/11/23 documented as of this encounter
--- OUTSIDE RECORDS SUMMARY | 2024-09-17 04:52 | XMS_ITS | Encounter Summary ---
Author Organization [facility] Address [address] [place] [address] Phone Care Team Providers Care Pattern Chain Maker Supervisor Name Role Phone Yaw Sol MD Primary Care Provider [phone] Provider, Unknown Primary Care Provider Unavaila ble Provider, None Primary Care Provider Unavailabl e Provider, Unknown Unavailable Unavailable Reason for Visit * Reason Comments Medication Refill Encounter Details Date Type Department Care Team (Late st Contact Info) Description 08/27/2022 [facility]ill [facility] [address]2 [place] [id number] Yaw Sol MD [address]1 [place] [address] Medication Refill Social History Tobacco Use Types [...] Provider Dept 09/10/22 Appointment Yaw Sol MD [facility] Showing future appointments within next 90 days [...] documented as of this encounter Care Teams Pattern Chain Maker Supervisor Relationship Specialty Start Date End Date Yaw Sol MD PCP - General Family Medicine 06/18/20 10/18/22 Provider, Unknown UNKNOWN PCP - General 10/23/22 04/10/23 Provider, None [place] PCP - General 04/11/23 Provider, Unknown UNKNOWN 04/11/23 documented as of this encounter
--- OUTSIDE RECORDS SUMMARY | 2024-09-17 04:52 | XMS_ITS | Clinical Summary ---
Author Organization [facility] Address [address] [address] Phone Care Team Providers Care [employer] Name Role Phone Provider, None Primary Care [...] Lnp-s, Pf, 3 0 Mcg/0.3 Ml Dose ([employer]) 06/05/2021 TDAP Vaccine 06/02/2020,01/02/2019,12/08/2016 Tuberculin Skin Test; [...] age to complete this topic Insurance MEDICAID [place] MEDICARE C [facility] MEDICARE C [facility] Advance Directives * Full Code (Latest Code Status on File) Date Activated Date Inactivated Comments 11/26/2020 10:26 AM 07/22/2021 4:56 AM Care Teams [employer] Relationship Specialty Start Date End Date Provider, None [place] PCP - General 04/11/23 Provider, Unknown UNKNOWN 04/11/23
--- OUTSIDE RECORDS SUMMARY | 2024-09-17 04:52 | XMS_ITS | Clinical Summary ---
Author Organization [facility] Address [address] [place] [address] Care Team Providers Care Emotionally Impaired Teacher Name Role Phone Miscellaneous, Not In [...] with motrin as needed Cerebrovascular accident (CVA) ([facility]/HCC) Assessment & Plan (10/14/2021 12:45 AM CDT): H/o L MCA CVA. Patient had expressive aphasia and right sided weakness from review of EMR. Unclear what residual deficits patient had. Patient also reports being admitted 1 month ago at [place] for CVA. Will need to obtain records. [...] may need MRI to r/o new CVA. LENS MOLDER consulted. Will need to obtain records from patient's admission 1month ago at [place]. Immunizations Immunization Administration Dates Next Due Tdap 01/02/2019,12/08/2016 Surgical History Surgery Date Site/Laterality Comments JOINT REPLACEMENT Left knee BACK SURGERY Medical History Medical History Date Comments Arthritis COPD (chronic obstructive pulmonary disease) ( C) Stroke ([facility]) Social History Tobacco Use Types [...] on file Legal Sex Male 7:03 PM LOGISTICS ANALYST Gender Identity Not on file Sexual Orientation [...] PELVIS W CONTRAST ED 05/24/2020 6:38 PM LOGISTICS ANALYST from Last 3 Months or Most Recently Relevant to Health Maintenance Results * CT Abdomen Pelvis W Contrast (05/24/2020 6:38 PM LOGISTICS ANALYST) Anatomical Region Laterality Modality Body N/A Computed Tomogra phy 05/24/2020 6:28 PM LOGISTICS ANALYST Impressions 05/24/2020 6:52 PM LOGISTICS ANALYST No acute inflammatory process is noted. No cholecystitis. Normal appendix. Diverticulosis without diverticulitis THIS IS AN ELECTRONICALLY VERIFIED FINAL REPORT 05/24/2020 6:48 PM - Electronically signed by Alvino rCuz M.D. NC: JESSIE Report ID: [id number] Reading Location: [id number] [facility] 05/24/2020 6:52 PM LOGISTICS ANALYST [facility] Imaging Result Name: BENITO CISSE Ordering Phys: TRI GÓMEZ Age: 69 Date of : 1950 Accession Number: [id number] Date of Service: 05/24/2020 Gender: M EXAM [...] Procedure Note Alvino Cruz MD - 05/24/2020 [facility] Imaging Result Name: BENITO CISSE Ordering Phys: TRI GÓMEZ Age: 69 Date of : 1950 Accession Number: [id number] Date of Service: 05/24/2020 Gender: M EXAM [...] Alvino Cruz M.D. NC: JESSIE Report ID: [id number] Reading Location: [id number] Tri Gómez MD IMG CT PROCEDURES F inal Result from Last 3 Months or Most Recently Relevant to Health Maintenance [place] [address] WELLC[employer] MEDICARE HMO MEDICARE IDPA [facility] MEDICARE HMO [facility] MEDICARE GENERIC RISK OTHER [facility] [place] IDPA WELLCARE MEDICARE HMO Advance Directives For more information, please contact: [phone] * Full Code (Latest Code Status on [...] 11:22 AM 09/24/2018 5:51 PM Care Teams Emotionally Impaired Teacher Relationship Specialty [place] [address] [place] [address] PCP - General Family Medicine 05/24/20 Miscellaneous, Not In File 08/20/18
--- OUTSIDE RECORDS SUMMARY | 2024-09-17 04:52 | XMS_ITS | Referral Summary ---
Author Organization [facility] Address [address] [place] [address] Care Team Providers Care Mold Sheet Cleaner Name Role Phone Miscellaneous, Not In File [...] with motrin as needed Cerebrovascular accident (CVA) ([facility]) Assessment & Plan (10/14/2021 12:45 AM CDT): H/o L MCA CVA. Patient had expressive aphasia and right sided weakness from review of EMR. Unclear what residual deficits patient had. Patient also reports being admitted 1 month ago at [place] for CVA. Will need to obtain records. [...] may need MRI to r/o new CVA. ACTIVITIES COORDINATOR consulted. Will need to obtain records from patient's admission 1month ago at [place]. Immunizations Immunization Administration Dates Next Due Tdap [...] on file Legal Sex Male 7:03 PM INFECTION CONTROL PREVENTIONIST Gender Identity Not on file Sexual Orientation [...] PELVIS W CONTRAST ED 05/24/2020 6:38 PM INFECTION CONTROL PREVENTIONIST from Last 3 Months or Most Recently Relevant to Health Maintenance Results * CT Abdomen Pelvis W Contrast (05/24/2020 6:38 PM INFECTION CONTROL PREVENTIONIST) Anatomical Region Laterality Modality Body N/A Computed Tomogra phy 05/24/2020 6:28 PM INFECTION CONTROL PREVENTIONIST Impressions 05/24/2020 6:52 PM INFECTION CONTROL PREVENTIONIST No acute inflammatory process is noted. No cholecystitis. Normal appendix. Diverticulosis without diverticulitis THIS IS AN ELECTRONICALLY VERIFIED FINAL REPORT 05/24/2020 6:48 PM - Electronically signed by Alvino Cruz M.D. NC: JESSIE Report ID: [id number] Reading Location: [id number] [facility] 05/24/2020 6:52 PM INFECTION CONTROL PREVENTIONIST [facility] Imaging Result Name: BENITO CISSE Ordering Phys: ANN GÓMEZ Age: 69 Date of : 1950 Accession Number: [id number] Date of Service: 05/24/2020 Gender: M EXAM [...] Procedure Note Alvino Cruz MD - 05/24/2020 [facility] Imaging Result Name: BENITO CISSE Ordering Phys: ANN GÓMEZ Age: 69 Date of : 1950 Accession Number: [id number] Date of Service: 05/24/2020 Gender: M EXAM [...] Alvino Cruz M.D. NC: JESSIE Report ID: [id number] Reading Location: [place] [address] Ann Gómez MD IMG CT PROCEDURES F inal Result from Last 3 Months or Most Recently Relevant to Health Maintenance Insurance [employer] MEDICARE HMO MEDICARE [place] MEDICARE HMO MANAGED MEDICARE GENERIC RISK OTHER [facility] Member Subscriber Plan / Payer (Ef fective 2021-Present) Name:Benito Cisse Member ID:[id number] Relation to Subscriber:Self Name:Benito Cisse Subscriber ID:[id number] Payer ID:[id number] (NAIC) Group ID:Not on file Type:MEDICARE RISK OTHER Address: [facility] ATTN: CLAIMS [address] [place] [phone] [place] [address] WELLCARE MEDICARE HMO Advance Directives For more information, please contact: [phone] * Full Code (Latest Code Status on [...] 11:22 AM 09/24/2018 5:51 PM Care Teams Mold Sheet Cleaner Relationship Specialty [place] [address] [place] [address] PCP - General Family Medicine 05/24/20 Miscellaneous, Not In File 08/20/18
--- OUTSIDE RECORDS SUMMARY | 2024-09-17 04:52 | XMS_ITS | Encounter Summary ---
Author Organization [facility] Address [address] [place] [address] Phone Care Team Providers Care Slitting Machine Operator Name Role Phone Yaw Sol MD Primary Care Provider [phone] Provider, Unknown Primary Care Provider Unavaila ble Provider, None Primary Care Provider Unavailabl e Provider, Unknown Unavailable Unavailable Lanie Whitaker Unavailable Unavailab le Reason for Visit * Reason Comments Medication Refill Encounter Details Date Type Department Care Team (Late st Contact Info) Description 11/27/2021 Refill [facility] - Family Medicine [facility] [address] [place] [phone] Darek Salamanca, RAFITA, MENTAL HEALTH TECH [address] [address] Medication Refill Social History Tobacco Use Types [...] documented as of this encounter Care Teams Slitting Machine Operator Relationship Specialty Start Date End Date Yaw Sol MD PCP - General Family Medicine 06/18/20 10/18/22 Provider, Unknown UNKNOWN PCP - General 10/23/22 04/10/23 Provider, None [place] PCP - General 04/11/23 Provider, Unknown UNKNOWN 04/11/23 Lanie Whitaker LSW [place] Soft Work Cigar Machine Operator 01/26/21 12/17/21 documented as of this encounter
--- OUTSIDE RECORDS SUMMARY | 2024-09-17 04:52 | XMS_ITS | Encounter Summary ---
Author Organization [facility] Address [address] [place] [address] Phone Care Team Providers Care Felter Tennis Balls Name Role Phone Ywa Sol MD Primary Care Provider [phone] Provider, Unknown Primary Care Provider Unavaila ble Provider, None Primary Care Provider Unavailabl e Provider, Unknown Unavailable Unavailable Reason for Visit * Reason Comments Medication Refill Encounter Details Date Type Department Care Team (Late st Contact Info) Description 07/02/2022 Refill [facility] [address]2 [place] [phone] Yaw Sol MD [address] [place] [address] Medication Refill Social History Tobacco Use Types [...] Chey Crane RMA - 07/05/2022 9:19 AM LITERATURE PROFESSOR Mailed letter RATURE PROFESSOR * Telephone Encounter - Kristina Cotton RN - 07/02/2022 5:19 PM CST Needs OV with PCP RATURE PROFESSOR * Telephone Encounter - Kristina Cotton RN [...] LDL, HDLCHOLESTE, CHOLESTEROL, TRIGLYCRIDES, VLDL, CHDL, HDLNON RATURE PROFESSOR documented in this encounter Plan of Treatment [...] documented as of this encounter Care Teams Felter Tennis Balls Relationship Specialty Start Date End Date Yaw Sol MD PCP - General Family Medicine 06/18/20 10/18/22 Provider, Unknown UNKNOWN PCP - General 10/23/22 04/10/23 Provider, None [place] PCP - General 04/11/23 Provider, Unknown UNKNOWN 04/11/23 documented as of this encounter
--- OUTSIDE RECORDS SUMMARY | 2024-09-17 04:52 | XMS_ITS | Encounter Summary ---
Author Organization [facility] Address [address] [place] [address] Phone Care Team Providers Care Cna Name Role Phone Yaw Sol MD Primary Care Provider [phone] Provider, Unknown Primary Care Provider Unavaila ble Provider, None Primary Care Provider Unavailabl e Provider, Unknown Unavailable Unavailable Reason for Visit * Reason Comments Medication Refill Encounter Details Date Type Department Care Team (Late st Contact Info) Description 06/25/2022 Refill [facility] [address] [place] [phone] Yaw Sol MD [address] [place] [address] Medication Refill Social History Tobacco Use Types [...] Na Bustamante RN - 06/28/2022 8:21 AM STENCILER Patient needs appointment. Medication failed the protocol, [...] 90 days and meeting all other requirements CILER documented in this encounter Plan of Treatment [...] documented as of this encounter Care Teams Cna Relationship Specialty Start Date End Date Yaw Sol MD PCP - General Family Medicine 06/18/20 10/18/22 Provider, Unknown UNKNOWN PCP - General 10/23/22 04/10/23 Provider, None [place] PCP - General 04/11/23 Provider, Unknown UNKNOWN 04/11/23 documented as of this encounter
--- OUTSIDE RECORDS SUMMARY | 2024-09-17 04:52 | XMS_ITS | Clinical Summary ---
Author Organization [facility] Address [address] [place] [address] Care Team Providers Care Supervisor Pile Driving Name Role Phone Unavailable Primary Care Provider Unavailabl e Source Comments [facility],non-owned Affiliates and Associated Physician Practices is amultiple site organization consisting of ambulatory clinics and hospital sitesin [place], [place], [place] and [place]. This disclosure is being madepursuant to the Care Everywhere program and may not contain all information available regarding this patient. Last updated 18.[facility] [employer] Allergies No known active allergies Medications * [...] on file Legal Sex Male 4:51 PM LATHE PULLER Gender Identity Not on file Sexual Orientation Not on file Last Filed Vital Signs Vital Sign Reading Time Taken Comments Blood Pressure 116/62 06/06/2019 7:10 AM LATHE PULLER Pulse 61 06/06/2019 7:10 AM LATHE PULLER Temperature 36.1 C (96.9 F) 06/06/2019 7:10 AM LATHE PULLER Respiratory Rate 20 06/06/2019 10:14 AM LATHE PULLER Oxygen Saturation 99% 06/06/2019 7:10 AM LATHE PULLER Inhaled Oxygen Concentration - - Weight 77.1 kg (170 lb) 06/06/2019 7:10 AM LATHE PULLER Height 167.6 cm (5' 6 ) 06/06/2019 7:10 AM LATHE PULLER Body Mass Index 27.44 06/06/2019 7:10 AM LATHE PULLER Plan of Treatment Health Maintenance Due Date [...] Insurance MEDICAID - OUT OF STATE WELL[employer]ARE MEDICAID [place] - [place]
--- OUTSIDE RECORDS SUMMARY | 2024-09-17 04:52 | XMS_ITS | Encounter Summary ---
Author Organization [facility] Address [address] [place] [address] Phone Care Team Providers Care Abalone Diver Name Role Phone Yaw Sol MD Primary Care Provider [phone] Provider, Unknown Primary Care Provider Unavaila ble Provider, None Primary Care Provider Unavailabl e Provider, Unknown Unavailable Unavailable Lanie Whitaker DRIVER MESSENGER Unavailable Unavailab le Reason for Visit * Reason Comments Medication Refill Encounter Details Date Type Department Care Team (Late st Contact Info) Description 10/28/2021 Refill [facility] - Family Medicine [facility] [address]2 [place] [phone] Yaw Sol MD [address] [place] [address] Medication Refill Social History Tobacco Use Types [...] Osifrah Spears 11/12/20 Office Visit Darek Salamanca, BATTERY ASSEMBLER, WEAPONS AND TACTICS INSTRUCTOR [facility] Show[facility] visits within past 365 days [...] Spears 11/12/20 Office Visit Darek Salamanca APRN, WEAPONS AND TACTICS INSTRUCTOR [facility] [place] Showing recent visits within past 365 days [...] documented as of this encounter Care Teams Abalone Diver Relationship Specialty Start Date End Date Yaw Sol MD PCP - General Family Medicine 06/18/20 10/18/22 Provider, Unknown UNKNOWN PCP - General 10/23/22 04/10/23 Provider, None [place] PCP - General 04/11/23 Provider, Unknown UNKNOWN 04/11/23 Lanie Whitaker LSW [place] Prevention Specialist 01/26/21 12/17/21 documented as of this encounter
[2024-09-17 04:57] VITALS: PULSE 73; RESP 20
== END 2024-09-17 05:01 | disposition home or self-care (01) ==
LOC: ANHED 04:50
PROVIDERS: Emergency Provider Emergency Medicine
DX: J40 Bronchitis, not specified as acute or chronic (principal); R07.89 Other chest pain; F17.210 Nicotine dependence, cigarettes, uncomplicated; F32.A Depression, unspecified; F41.9 Anxiety disorder, unspecified; I50.9 Heart failure, unspecified; M19.90 Unspecified osteoarthritis, unspecified site
CPT/HCPCS: 36415; 71046; 80053; 83690; 84484; 85025; 85610; 85730; 93005; 94640; 99284; A9270; J7512

== ENCOUNTER 2024-10-09 22:37 | Emergency (ER) | payer MEDICARE, MEDICAID, SELFPAY ==
--- NOTE | ~2024-10-09 | XR_ITS ---
XR knee RT min 4V Ordering provider: Sidney Davis MD History: . pain . Comparison: January 26, 2023 FINDINGS: BONES: No acute fracture or dislocation. JOINT SPACES: Severe narrowing of the medial compartment. Severe narrowing of the patellofemoral join t with osteophytes in the patella. Chondrocalcinosis in the lateral meniscus. SOFT TISSUES: Normal. IMPRESSION: No acute osseous abnormality right knee. Severe osteoarthritic changes Reviewed, dictated and finalized at location A.
--- OUTSIDE RECORDS SUMMARY | 2024-10-09 22:40 | XMS_ITS | Encounter Summary ---
Author Organization [facility] Address [address] [place] [address] Phone Care Team Providers Care Head Of Ict Name Role Phone Yaw Sol MD Primary Care Provider [phone] Provider, Unknown Primary Care Provider Unavaila ble Provider, None Primary Care Provider Unavailabl e Provider, Unknown Unavailable Unavailable Reason for Visit * Reason Comments Medication Refill Encounter Details Date Type Department Care Team (Late st Contact Info) Description 07/31/2022 Refill [facility] Family [facility] #2 [place] [phone] Yaw Sol MD [address] [place] [address] Medication Refill Social History Tobacco Use Types [...] documented as of this encounter Care Teams Head Of Ict Relationship Specialty Start Date End Date Yaw Sol MD PCP - General Family Medicine 06/18/20 10/18/22 Provider, Unknown UNKNOWN PCP - General 10/23/22 04/10/23 Provider, None [place] PCP - General 04/11/23 Provider, Unknown UNKNOWN 04/11/23 documented as of this encounter
--- OUTSIDE RECORDS SUMMARY | 2024-10-09 22:40 | XMS_ITS | Encounter Summary ---
Author Organization [facility] Address [address] [place] [address] Phone Care Team Providers Care Prototype Special Build Name Role Phone Yaw Sol MD Primary Care Provider [phone] Provider, Unknown Primary Care Provider Unavaila ble Provider, None Primary Care Provider Unavailabl e Provider, Unknown Unavailable Unavailable Lanie Whitaker Unavailable Unavailab le Reason for Visit * Reason Comments Medication Refill Encounter Details Date Type Department Care Team (Late st Contact Info) Description 11/27/2021 Refill [facility] Medical Group - Family Medicine [facility] [address] [place] [phone] Darek Salamanca, SOLAR INSTALLER PV, BELT BUILDER [address] [address] Medication Refill Social History Tobacco Use Types [...] documented as of this encounter Care Teams Prototype Special Build Relationship Specialty Start Date End Date Yaw Sol MD PCP - General Family Medicine 06/18/20 10/18/22 Provider, Unknown UNKNOWN PCP - General 10/23/22 04/10/23 Provider, None [place] PCP - General 04/11/23 Provider, Unknown UNKNOWN 04/11/23 Lanie Whitaker LSW [place] Bicycle Racer 01/26/21 12/17/21 documented as of this encounter
--- OUTSIDE RECORDS SUMMARY | 2024-10-09 22:40 | XMS_ITS | Encounter Summary ---
Author Organization [facility] Address [address] [place] [address] Phone Care Team Providers Care Trust Advisor Name Role Phone Yaw Sol MD Primary Care Provider [phone] Provider, Unknown Primary Care Provider Unavaila ble Provider, None Primary Care Provider Unavailabl e Provider, Unknown Unavailable Unavailable Reason for Visit * Reason Comments Medication Refill Encounter Details Date Type Department Care Team (Late st Contact Info) Description 07/02/2022 Refill [facility] #2 [place] [phone] Yaw Sol MD [address] [place] [address] Medication Refill Social History Tobacco Use Types [...] Chey Crane RMA - 07/05/2022 9:19 AM EVENT DECORATOR Mailed letter T DECORATOR * Telephone Encounter - Kristina Cotton RN - 07/02/2022 5:19 PM CST Needs OV with PCP T DECORATOR * Telephone Encounter - Kristina Cotton RN [...] LDL, HDLCHOLESTE, CHOLESTEROL, TRIGLYCRIDES, VLDL, CHDL, HDLNON T DECORATOR documented in this encounter Plan of Treatment [...] documented as of this encounter Care Teams Trust Advisor Relationship Specialty Start Date End Date Yaw Sol MD PCP - General Family Medicine 06/18/20 10/18/22 Provider, Unknown UNKNOWN PCP - General 10/23/22 04/10/23 Provider, None [place] PCP - General 04/11/23 Provider, Unknown UNKNOWN 04/11/23 documented as of this encounter
--- OUTSIDE RECORDS SUMMARY | 2024-10-09 22:40 | XMS_ITS | Encounter Summary ---
Author Organization [facility] Address [address] [place] [address] Phone Care Team Providers Care Data Designer Name Role Phone Yaw Sol MD Primary Care Provider [phone] Provider, Unknown Primary Care Provider Unavaila ble Provider, None Primary Care Provider Unavailabl e Provider, Unknown Unavailable Unavailable Reason for Visit * Reason Comments Medication Refill Encounter Details Date Type Department Care Team (Late st Contact Info) Description 06/25/2022 Refill [facility] #2 [place] [phone] Yaw Sol MD [address] [place] [address] Medication Refill Social History Tobacco Use Types [...] Na Bustamante RN - 06/28/2022 8:21 AM GRANT OFFICER Patient needs appointment. Medication failed the protocol, [...] 90 days and meeting all other requirements T OFFICER documented in this encounter Plan of Treatment [...] documented as of this encounter Care Teams Data Designer Relationship Specialty Start Date End Date Yaw Sol MD PCP - General Family Medicine 06/18/20 10/18/22 Provider, Unknown UNKNOWN PCP - General 10/23/22 04/10/23 Provider, None [place] PCP - General 04/11/23 Provider, Unknown UNKNOWN 04/11/23 documented as of this encounter
--- OUTSIDE RECORDS SUMMARY | 2024-10-09 22:40 | XMS_ITS | Encounter Summary ---
Author Organization [facility] Address [address] [place] [address] Phone Care Team Providers Care Gastroenterologist Name Role Phone Yaw Sol MD Primary Care Provider [phone] Provider, Unknown Primary Care Provider Unavaila ble Provider, None Primary Care Provider Unavailabl e Provider, Unknown Unavailable Unavailable Reason for Visit * Reason Comments Medication Refill Encounter Details Date Type Department Care Team (Late st Contact Info) Description 08/27/2022 Refill [facility] [address]2 [place] [phone] Yaw Sol MD [address] [place] [address] Medication Refill Social History Tobacco Use Types [...] Provider Dept 09/10/22 Appointment Yaw Sol MD [facility] Showing future appointments within next 90 days [...] documented as of this encounter Care Teams Gastroenterologist Relationship Specialty Start Date End Date Yaw Sol MD PCP - General Family Medicine 06/18/20 10/18/22 Provider, Unknown UNKNOWN PCP - General 10/23/22 04/10/23 Provider, None [place] PCP - General 04/11/23 Provider, Unknown UNKNOWN 04/11/23 documented as of this encounter
--- OUTSIDE RECORDS SUMMARY | 2024-10-09 22:40 | XMS_ITS | Clinical Summary ---
Author Organization [facility] Address [address] [address] Phone Care Team Providers Care Airplane Designer Name Role Phone Provider, None Primary Care [...] Lnp-s, Pf, 3 0 Mcg/0.3 Ml Dose (SpaBoom) 06/05/2021 TDAP Vaccine 06/02/2020,01/02/2019,12/08/2016 Tuberculin Skin Test; [...] 4:21 AM CDT Height 167.6 cm (5' 6) 11/30/2023 4:21 AM CDT Body Mass Index 25.82 11/30/2023 4:21 AM CDT Plan of Treatment Health Maintenance Due Date Last Done Comments Hepatitis C Virus (HCV) Screening 1950 Pneumococcal Immunization (5 0+ years) (1 of 2 - PCV) 12/13/1970 Cologuard 12/13/1996 Colonoscopy 12/13/1996 Colorectal Cancer Screening 12/13/1996 Immunochemical Fecal Occult Blood 12/13/1996 Lung Cancer Screening 12/13/2001 Zoster Immunization (1 of 2) 12/13/2001 Respiratory Syncytial Virus (RSV) Immunization (Adult) (1 - Risk 60-74 years 1-dose series) 2011 AAA Screening Ultrasound 12/13/2016 SARS-COV-2 Immunization (2 - season) 2024 06/05/2021 Influenza Immunization (Seas on Ended) 2024 05/24/2018 Td Immunization Every 10 Yea rs (Adults With 1 Tdap) 06/02/2030 06/02/2020, 01/02/2019, 12/08/2016 DTaP/Tdap/Td Immunization Discontinued 2020, 01/02/2019, 12/08/2016 Hepatitis B Immunization Aged Out No longer eligible based on patient's age to complete this topic Human Papillomavirus (HPV) Immunization Aged Out No longer eligible based on patient's age to complete this topic Meningococcal Immunization (ACWY) Aged Out No longer eligible based on patient's age to complete this topic Rotavirus Immunization Aged Out No lo nger eligible based on patient's age to complete this topic Insurance MEDICAID [place] MEDICARE [facility] Advance Directives * Full Code (Latest Code Status on File) Date Activated Date Inactivated Comments 11/26/2020 10:26 AM 07/22/2021 4:56 AM Care Teams Airplane Designer Relationship Specialty Start Date End Date Provider, None [place] PCP - General 04/11/23 Provider, Unknown UNKNOWN 04/11/23
--- OUTSIDE RECORDS SUMMARY | 2024-10-09 22:40 | XMS_ITS | Clinical Summary ---
Author Organization [facility] Address [address] [place] [address] Care Team Providers Care Pantry Goods Maker Name Role Phone Unavailable Primary Care Provider Unavailabl e Source Comments [facility],non-owned Affiliates and Associated Physician Practices is amultiple site organization consisting of ambulatory clinics and hospital sitesin [place], [place], [place] and [place]. This disclosure is being madepursuant to the Care Everywhere program and may not contain all information available regarding this patient. Last updated 18.[facility] [employer] Allergies No known active allergies Medications * [...] on file Legal Sex Male 4:51 PM SYSTEMS SOFTWARE DESIGNER Gender Identity Not on file Sexual Orientation Not on file Last Filed Vital Signs Vital Sign Reading Time Taken Comments Blood Pressure 116/62 06/06/2019 7:10 AM SYSTEMS SOFTWARE DESIGNER Pulse 61 06/06/2019 7:10 AM SYSTEMS SOFTWARE DESIGNER Temperature 36.1 C (96.9 F) 06/06/2019 7:10 AM SYSTEMS SOFTWARE DESIGNER Respiratory Rate 20 06/06/2019 10:14 AM SYSTEMS SOFTWARE DESIGNER Oxygen Saturation 99% 06/06/2019 7:10 AM SYSTEMS SOFTWARE DESIGNER Inhaled Oxygen Concentration - - Weight 77.1 kg (170 lb) 06/06/2019 7:10 AM SYSTEMS SOFTWARE DESIGNER Height 167.6 cm (5' 6) 06/06/2019 7:10 AM SYSTEMS SOFTWARE DESIGNER Body Mass Index 27.44 06/06/2019 7:10 AM SYSTEMS SOFTWARE DESIGNER Plan of Treatment Health Maintenance Due Date Last Done Comments COLOGUARD (AGES 45-75) - COLON CA SCREENING 1950 COLON MONITORING 1950 COLONOSCOPY [...] 12/13/2001 AAA SCREENING 12/13/2016 SCREENING FOR DIABETES 03/03/2022 9, 03/03/2019, 12/25/2016, Additional history exists COVID-19 VACCINE ( season) 2024 DEPRESSION SCREENING 05/02/2024 INFLUENZA VACCINE [...] complete this topic MENINGOCOCCAL (Group B) VACCINE SHARED DECISION-MAKING Aged Out No longer eligible based on patient's age to complete this topic MENINGOCOCCAL GROUPS A/C/Y/W VACCINE Aged Out No longer eligible based on patient's age to complete this topic Insurance MEDICAID - OUT OF STATE [facility] MEDICAID LIMITED BENEFIT - [place] - [place] WELLCARE
--- OUTSIDE RECORDS SUMMARY | 2024-10-09 22:40 | XMS_ITS | Referral Summary ---
Author Organization [facility] Address [address] [place] [address] Care Team Providers Care Lumber Cutter Name Role Phone Miscellaneous, Not In File [...] with motrin as needed Cerebrovascular accident (CVA) ([facility]) Assessment & Plan (10/14/2021 12:45 AM CDT): H/o L MCA CVA. Patient had expressive aphasia and right sided weakness from review of EMR. Unclear what residual deficits patient had. Patient also reports being admitted 1 month ago at [facility] for CVA. Will need to obtain records. [...] may need MRI to r/o new CVA. MEETING MANAGER consulted. Will need to obtain records from patient's admission 1month ago at [facility]. Immunizations Immunization Administration Dates Next Due Tdap [...] on file Legal Sex Male 7:03 PM JEWELRY APPRAISER Gender Identity Not on file Sexual Orientation [...] 3:17 PM CDT Height 167.6 cm (5' 6) 02/13/2024 3:17 PM CDT Body Mass Index 26.63 02/13/2024 3:17 PM CDT Plan of Treatment Not on file Procedures Procedure Name Priority Date/Time Associated Diagnosis Comments CT ABDOMEN PELVIS W CONTRAST ED 05/24/2020 6:38 PM JEWELRY APPRAISER from Last 3 Months or Most Recently Relevant to Health Maintenance Results * CT Abdomen Pelvis W Contrast (05/24/2020 6:38 PM JEWELRY APPRAISER) Anatomical Region Laterality Modality Body N/A Computed Tomogra phy 05/24/2020 6:28 PM JEWELRY APPRAISER Impressions 05/24/2020 6:52 PM JEWELRY APPRAISER No acute inflammatory process is noted. No cholecystitis. Normal appendix. Diverticulosis without diverticulitis THIS IS AN ELECTRONICALLY VERIFIED FINAL REPORT 05/24/2020 6:48 PM - Electronically signed by Alvino Cruz M.D. NC: JESSIE Report ID: [id number] Reading Location: [id number] [facility] 05/24/2020 6:52 PM JEWELRY APPRAISER [facility] Imaging Result Name: BENITO CISSE Ordering Phys: ANN GÓMEZ Age: 69 Date of : 1950 Accession Number: [id number] Date of Service: 05/24/2020 Gender: M EXAM [...] Cruz MD - 05/24/2020 [facility] Imaging Result Name: BENITO CISSE Ordering Phys: ANN GÓMEZ Age: 69 Date of : 1950 Accession Number: [id number] Date of Service: 05/24/2020 Gender: M EXAM [...] Alvino Cruz M.D. NC: JESSIE Report ID: [id number] Reading Location: [place] [address] Ann Gómez MD IMG CT PROCEDURES F inal Result from Last 3 Months or Most Recently Relevant to Health Maintenance Insurance [employer] MEDICARE HMO MEDICARE [facility] Address: [address] [address] [place] [address] [place] MEDICARE HMO MANAGED MEDICARE GENERIC RISK OTHER [facility] Member Subscriber Plan / Payer (Ef fective 2021-Present) Name:Benito Cisse Member ID:[id number] Relation to Subscriber:Self Name:Benito Cisse Subscriber ID:[id number] Payer ID:[id number] (NAIC) Group ID:Not on file Type:MEDICARE RISK OTHER Address: [facility] ATTN: CLAIMS [address] [place] [id number] [place] [address] WELLCARE MEDICARE HMO Advance Directives For more information, please contact: [phone] * Full Code (Latest Code Status on [...] 11:22 AM 09/24/2018 5:51 PM Care Teams Lumber Cutter Relationship Specialty [place] [address] [place] [address] PCP - General Family Medicine 05/24/20 Miscellaneous, Not In File 08/20/18
--- OUTSIDE RECORDS SUMMARY | 2024-10-09 22:40 | XMS_ITS | Encounter Summary ---
Author Organization [facility] Address [address] [place] [address] Phone Care Team Providers Care Solution Coordinator Name Role Phone Yaw Sol MD Primary Care Provider [phone] Provider, Unknown Primary Care Provider Unavaila ble Provider, None Primary Care Provider Unavailabl e Provider, Unknown Unavailable Unavailable Lanie Whitaker BOND UNDERWRITER Unavailable Unavailab le Reason for Visit * Reason Comments Medication Refill Encounter Details Date Type Department Care Team (Late st Contact Info) Description 10/28/2021 Refill [facility] - Family Medicine [facility] [address] [place] [id number] Yaw Sol MD [address] [place] [address] Medication Refill Social History Tobacco Use Types [...] Osifrah Spears 11/12/20 Office Visit Darek Salamanca, STAFFING PROGRAM MANAGER, DIRECTOR OF FINANCIAL REPORTING [facility] Showing recent visits within past 365 days [...] Spears 11/12/20 Office Visit Darek Salamanca APRN, DIRECTOR OF FINANCIAL REPORTING [facility] Showing recent visits within past 365 [...] documented as of this encounter Care Teams Solution Coordinator Relationship Specialty Start Date End Date Yaw Sol MD PCP - General Family Medicine 06/18/20 10/18/22 Provider, Unknown UNKNOWN PCP - General 10/23/22 04/10/23 Provider, None [place] PCP - General 04/11/23 Provider, Unknown UNKNOWN 04/11/23 Lanie Whitaker LSW [place] Java User Interface Developer 01/26/21 12/17/21 documented as of this encounter
--- OUTSIDE RECORDS SUMMARY | 2024-10-09 22:40 | XMS_ITS | Clinical Summary ---
Author Organization [facility] Address [address] [place] [address] Care Team Providers Care Assembly Line Leader Name Role Phone Miscellaneous, Not In File [...] with motrin as needed Cerebrovascular accident (CVA) ([facility]) Assessment & Plan (10/14/2021 12:45 AM CDT): H/o L MCA CVA. Patient had expressive aphasia and right sided weakness from review of EMR. Unclear what residual deficits patient had. Patient also reports being admitted 1 month ago at [facility] for CVA. Will need to obtain records. [...] may need MRI to r/o new CVA. MOTORS ASSEMBLER consulted. Will need to obtain records from patient's admission 1month ago at [facility]. 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 No cholecystitis. Normal appendix. Diverticulosis without diverticulitis THIS IS AN ELECTRONICALLY VERIFIED FINAL REPORT 05/24/2020 6:48 PM - Electronically signed by Alvino Cruz M.D. NC: JESSIE Report ID: [id number] Reading Location: [id number] [facility] 05/24/2020 6:52 PM DAIRY HUSBANDRY TEACHER [facility] Imaging Result Name: BENITO CISSE Ordering Phys: TRI GÓMEZ Age: 69 Date of : 1950 Accession Number: [id number] Date of Service: 05/24/2020 Gender: M EXAM [...] Procedure Note Alvino Cruz MD - 05/24/2020 [facility] Imaging Result Name: BENITO CISSE Ordering Phys: TRI GÓMEZ Age: 69 Date of : 1950 Accession Number: [id number] Date of Service: 05/24/2020 Gender: M EXAM [...] Alvino Cruz M.D. NC: JESSIE Report ID: [id number] Reading Location: [id number] Tri Gómez MD IMG CT PROCEDURES F inal Result from Last 3 Months or Most Recently Relevant to Health Maintenance Insurance [employer] MEDICARE HMO MEDICARE IDPA [facility] MEDICARE HMO [facility] MEDICARE GENERIC RISK OTHER [facility] [place] WELL[employer] MEDICARE HMO Advance Directives For more information, please contact: [phone] * Full Code (Latest Code Status on [...] 11:22 AM 09/24/2018 5:51 PM Care Teams Assembly Line Leader Relationship Specialty [place] [address] [place] [address] PCP - General Family Medicine 05/24/20 Miscellaneous, Not In File 08/20/18
[2024-10-09 23:06] VITALS: BP 127/79; PULSE 66; RESP 18; TEMP 36.9; O2SAT 100
--- NOTE | 2024-10-09 23:33 | ED.GENADULT ---
HPI - General Adult General Chief complaint: Extremity Injury, Lower Stated complaint: Pain in right knee, poss fever Time Seen by Provider: 10/09/24 22:49 History of Present Illness HPI narrative: Patient is a 73-year-old male who presents emergency department this evening complaining of right knee pain that is chronic but today has been bothering him all day. Denies any falls or trauma or any recent injuries to his right knee. Patient states that he did not take anything for the pain and does not have ibuprofen and Tylenol at home. Denies any additional injuries or concerns. Requesting food. Patient ambulated to the emergency department. Related Data Home Medications ?Medication ?Instructions ?Recorded ?Confirmed ?Last Taken ?Type naproxen 500 mg tablet 500 mg PO BID PRN Pain (Scale 12/01/23 12/01/23 Unknown History Score 1-3) Allergies Allergy/AdvReac Type Severity Reaction Status Date / Time No Known Allergies Allergy Verified 09/17/24 02:37 Review of Systems Review of Systems: All systems are reviewed and are negative unless stated otherwise in the HPI. [facility] Past Medical History Medical History Cocaine abuse Tobacco abuse Normocytic anemia History of depression History of anxiety History of CHF (congestive heart failure) Arthritis Surgical History Surgical History History of left knee replacement Social History Social History Smoking packs per day: 1 Smoking cigarettes per day: 20.0 Smoking status: Current every day smoker Alcohol intake: never Substance use: current Substance use type: crack/cocaine Last use: [facility] ON ADMISSION Do You Feel Safe in your Home?: Yes Lack of Transportation: YES Lack of Food: Sometimes True Current Housing: I Do Not Have Housing Concerned About Future Housing: YES Difficulty Paying Gas/Electric Bills: YES Difficulty Paying for Meds: YES Currently Unemployed: YES Education: Don't Know Difficulty w/ Childcare or Family Care: No Gender identity (if verbalized by the patient): Male Spiritual care concerns: No Exam Narrative: General: Alert, awake, afebrile, in no acute distress. HEENT: PERRL, no rhinorrhea, no post nasal drip, oropharynx clear. Neck: Trachea midline, no JVD, no lymphadenopathy. Cardiovascular: Regular rate and rhythm, no murmurs, rubs or gallops, no peripheral edema. Respiratory: Clear to auscultation bilaterally, no tachypnea, no wheezing, no rhonchi, no rubs, no respiratory distress. Abdomen: Soft, nontender, nondistended, no rebound, no guarding, no peritoneal signs. Musculoskeletal: No joint swelling or deformity specifically in the right knee joint, normal muscle tone, intact bilateral hip flexions any extensions. Skin: No rashes or petechia, no signs of infection. Psychiatric: Alert and oriented, normal behavior and judgment for situation. Neurological: Alert and oriented to person, place, and time. Follows all commands. No focal deficits, speech is clear and fluent. Course Vital Signs Vital signs: Vital Signs Temperature 98.5 F 10/09/24 23:06 Pulse Rate 66 10/09/24 23:06 Respiratory Rate 18 10/09/24 23:06 Blood Pressure 127/79 10/09/24 23:06 Pulse Oximetry 100 10/09/24 23:06 Oxygen Delivery Room Air 10/09/24 23:06 Temperature 98.5 F 10/09/24 23:06 Pulse Rate 66 10/09/24 23:06 Respiratory Rate 18 10/09/24 23:06 Blood Pressure 127/79 10/09/24 23:06 Pulse Oximetry 100 10/09/24 23:06 Oxygen Delivery Room Air 10/09/24 23:06 Medical Decision Making MDM Narrative Medical decision making narrative: The patient was evaluated by myself in the emergency department. History is obtained from patient who is an independent historian and physical exam was performed. External medical records were reviewed at this time. Patient was administered 400 mg oral ibuprofen. Imaging studies obtained included right knee x-ray which was independently interpreted by me revealing: IMPRESSION: No acute osseous abnormality right knee. Severe osteoarthritic changes. Differential diagnosis considerations include arthritis, ACL/PCL tear, meniscal injury, fracture, dislocation. Comorbidities impacting this visit include [comorbidities]. I have evaluated and discussed social determinants of health with the patient that could potentially impact subsequent diagnosis and treatment plans. On repeat assessment of the patient, reevaluation revealed that the patient is doing well and is in no acute distress. Patient symptoms have improved since he arrived to our emergency department. Repeat vital signs were all reviewed and noted to be stable. Differential diagnosis and treatment plan were discussed with the patient at bedside. Patient agrees with discussion and after shared medical decision making agrees with discharge. All questions were answered to the patient's satisfaction. Patient will follow up with his PCP in 3-5 days. Patient was provided with strict return precautions and instructed to return to the emergency department if any new or worsening symptoms develop. The patient was discharged in stable condition. Vital Signs Vital Signs: Vital Signs Temperature 98.5 F 10/09/24 23:06 Pulse Rate 66 10/09/24 23:06 Respiratory Rate 18 10/09/24 23:06 Blood Pressure 127/79 10/09/24 23:06 Pulse Oximetry 100 10/09/24 23:06 Oxygen Delivery Room Air 10/09/24 23:06 Temperature 98.5 F 10/09/24 23:06 Pulse Rate 66 10/09/24 23:06 Respiratory Rate 18 10/09/24 23:06 Blood Pressure 127/79 10/09/24 23:06 Pulse Oximetry 100 10/09/24 23:06 Oxygen Delivery Room Air 10/09/24 23:06 Discharge Plan Discharge Clinical Impression: Chronic pain of right knee Patient Disposition: Home Condition: Improved Instructions: Antibiotic Form, Arthritis (ED) Additional Instructions: Please follow-up with the family doctor within the next 3-5 days. Return to emergency room for new or worsening symptoms develop. Take ibuprofen as needed for your chronic arthritis knee pain. Patient Language: Jordanian Prescriptions: No Action naproxen 500 mg tablet 500 mg PO BID PRN (Reason: Pain (Scale Score 1-3)) amoxicillin-pot clavulanate 875-125 mg tablet 1 tablet PO Q12H Qty: 14 0RF prednisone 20 mg tablet 40 mg PO DAILY Qty: 10 0RF albuterol sulfate 90 mcg/actuation HFA aerosol inhaler 1 inh inhalation QID PRN (Reason: shortness of breath or wheezing) Qty: 6.7 0RF lidocaine 5 % adhesive patch,medicated 1 patch topical DAILY Qty: 15 0RF Rx Instructions: leave on most painful area for up to 12 hrs naproxen 500 mg tablet 500 mg PO BID PRN (Reason: pain) Qty: 20 0RF azithromycin 250 mg tablet 250 mg PO DAILY 4 Days Qty: 4 0RF Rx Instructions: start on day 2 of therapy prednisone 20 mg tablet 40 mg PO DAILY 4 Days Qty: 8 0RF albuterol sulfate 90 mcg/actuation HFA aerosol inhaler 2 puff inhalation QID PRN (Reason: shortness of breath or wheezing) Qty: 8.5 0RF amoxicillin 500 mg capsule 1,000 mg PO Q8H 5 Days Qty: 30 0RF azithromycin 250 mg tablet See Rx Instructions .ROUTE .COMPLEX Qty: 6 0RF Rx Instructions: For 250 mg dose pack: take 500 mg today (day 1), then 250 mg for 4 days (days 2-5) Follow-up/Referrals: PHYSICIAN,BOWLING BALL ASSEMBLER [Primary Care Provider] - Abilio Hendrix MD [Physician] - 3 Days Time of Disposition: 23:34
[2024-10-09] MEDS: IBUPROFEN 400 MG TABLET PO (23:38)
[2024-10-09 23:50] VITALS: BP 126/70; PULSE 62; RESP 18; O2SAT 100
== END 2024-10-09 23:51 | disposition home or self-care (01) ==
PROVIDERS: Emergency Provider Emergency Medicine
DX: M25.561 Pain in right knee (principal); G89.29 Other chronic pain; I50.9 Heart failure, unspecified; M19.90 Unspecified osteoarthritis, unspecified site; F32.A Depression, unspecified; F41.9 Anxiety disorder, unspecified; F17.210 Nicotine dependence, cigarettes, uncomplicated; Z96.652 Presence of left artificial knee joint; M25.761 Osteophyte, right knee; M11.261 Other chondrocalcinosis, right knee
CPT/HCPCS: 73564; 99283; A9270

== ENCOUNTER 2024-11-08 19:39 | Emergency (ER) | payer OTHER, MEDICAID, SELFPAY ==
[2024-11-08 19:42] VITALS: BP 118/50; PULSE 79; RESP 18; TEMP 36.3; O2SAT 100
--- OUTSIDE RECORDS SUMMARY | 2024-11-08 19:42 | XMS_ITS | Encounter Summary ---
Author Organization [facility] Address [address] [place] [address] Phone Care Team Providers Care Partner Marketing Intern Name Role Phone Yaw Sol MD Primary Care Provider [phone] Provider, Unknown Primary Care Provider Unavaila ble Provider, None Primary Care Provider Unavailabl e Provider, Unknown Unavailable Unavailable Reason for Visit * Reason Comments Medication Refill Encounter Details Date Type Department Care Team (Late st Contact Info) Description 07/31/2022 Refill [facility] - Family Medicine [facility] [address] [place] [id number] Yaw Sol MD [address] [place] [address] Medication Refill Social History Tobacco Use Types [...] documented as of this encounter Care Teams Partner Marketing Intern Relationship Specialty Start Date End Date Yaw Sol MD PCP - General Family Medicine 06/18/20 10/18/22 Provider, Unknown UNKNOWN PCP - General 10/23/22 04/10/23 Provider, None [place] PCP - General 04/11/23 Provider, Unknown UNKNOWN 04/11/23 documented as of this encounter
--- OUTSIDE RECORDS SUMMARY | 2024-11-08 19:42 | XMS_ITS | Clinical Summary ---
Author Organization [facility] Address [address] [place] [address] Care Team Providers Care Inspector Material Disposition Name Role Phone Unavailable Primary Care Provider Unavailabl e Source Comments [facility],non-owned Affiliates and Associated Physician Practices is amultiple site organization consisting of ambulatory clinics and hospital sitesin [place], [place], [place] and [place]. This disclosure is being madepursuant to the Care Everywhere program and may not contain all information available regarding this patient. Last updated 18.[facility] [employer] Allergies No known active allergies Medications * [...] on file Legal Sex Male 4:51 PM PHOTO TECHNOLOGIST Gender Identity Not on file Sexual Orientation Not on file Last Filed Vital Signs Vital Sign Reading Time Taken Comments Blood Pressure 116/62 06/06/2019 7:10 AM PHOTO TECHNOLOGIST Pulse 61 06/06/2019 7:10 AM PHOTO TECHNOLOGIST Temperature 36.1 C (96.9 F) 06/06/2019 7:10 AM PHOTO TECHNOLOGIST Respiratory Rate 20 06/06/2019 10:14 AM PHOTO TECHNOLOGIST Oxygen Saturation 99% 06/06/2019 7:10 AM PHOTO TECHNOLOGIST Inhaled Oxygen Concentration - - Weight 77.1 kg (170 lb) 06/06/2019 7:10 AM PHOTO TECHNOLOGIST Height 167.6 cm (5' 6) 06/06/2019 7:10 AM PHOTO TECHNOLOGIST Body Mass Index 27.44 06/06/2019 7:10 AM PHOTO TECHNOLOGIST Plan of Treatment Health Maintenance Due Date [...] season) 2024 DEPRESSION SCREENING 05/02/2024 INFLUENZA VACCINE (#1) 2024 Respiratory Syncytial Virus (RSV) Vaccine Pt: [...] topic Insurance MEDICAID - OUT OF STATE [facility] MEDICAID LIMITED BENEFIT - [place] - [place]
--- OUTSIDE RECORDS SUMMARY | 2024-11-08 19:42 | XMS_ITS | Encounter Summary ---
Author Organization [facility] Address [address] [place] [address] Phone Care Team Providers Care Roofing Plant Supervisor Name Role Phone Yaw Sol MD Primary Care Provider [phone] Provider, Unknown Primary Care Provider Unavaila ble Provider, None Primary Care Provider Unavailabl e Provider, Unknown Unavailable Unavailable Reason for Visit * Reason Comments Medication Refill Encounter Details Date Type Department Care Team (Late st Contact Info) Description 06/25/2022 Refill [facility] Family Medicine [facility] [address] [place] [id number] Yaw Sol MD [address]1 [place] [address] Medication Refill Social History Tobacco Use Types [...] Na Bustamante RN - 06/28/2022 8:21 AM ANTHROPOLOGY FACULTY MEMBER Patient needs appointment. Medication failed the protocol, [...] 90 days and meeting all other requirements ROPOLOGY FACULTY MEMBER documented in this encounter Plan of Treatment [...] documented as of this encounter Care Teams Roofing Plant Supervisor Relationship Specialty Start Date End Date Yaw Sol MD PCP - General Family Medicine 06/18/20 10/18/22 Provider, Unknown UNKNOWN PCP - General 10/23/22 04/10/23 Provider, None [place] PCP - General 04/11/23 Provider, Unknown UNKNOWN 04/11/23 documented as of this encounter
--- OUTSIDE RECORDS SUMMARY | 2024-11-08 19:42 | XMS_ITS | Encounter Summary ---
Author Organization [facility] Address [address] [place] [address] Phone Care Team Providers Care Oncology Radiation Physician Name Role Phone Yaw Sol MD Primary Care Provider [phone] Provider, Unknown Primary Care Provider Unavaila ble Provider, None Primary Care Provider Unavailabl e Provider, Unknown Unavailable Unavailable Lanie Whitaker Unavailable Unavailab le Reason for Visit * Reason Comments Medication Refill Encounter Details Date Type Department Care Team (Late st Contact Info) Description 11/27/2021 Refill [facility] - Family Medicine [facility] [address]2 [place] [phone] Darek Salamanca, EDUCATION TRAINER, CREDIT SUPPORT COUNSELOR #[address] [address] Medication Refill Social History Tobacco Use Types [...] documented as of this encounter Care Teams Oncology Radiation Physician Relationship Specialty Start Date End Date Yaw Sol MD PCP - General Family Medicine 06/18/20 10/18/22 Provider, Unknown UNKNOWN PCP - General 10/23/22 04/10/23 Provider, None [place] PCP - General 04/11/23 Provider, Unknown UNKNOWN 04/11/23 Lanie Whitaker LSW [place] Deputy Clerk Of Court 01/26/21 12/17/21 documented as of this encounter
--- OUTSIDE RECORDS SUMMARY | 2024-11-08 19:42 | XMS_ITS | Encounter Summary ---
Author Organization [facility] Address [address] [place] [address] Phone Care Team Providers Care Planer Chain Offbearer Name Role Phone Yaw Sol MD Primary Care Provider [phone] Provider, Unknown Primary Care Provider Unavaila ble Provider, None Primary Care Provider Unavailabl e Provider, Unknown Unavailable Unavailable Reason for Visit * Reason Comments Medication Refill Encounter Details Date Type Department Care Team (Late st Contact Info) Description 08/27/2022 Refill [facility] [address]2 [place] [phone] Yaw Sol MD [address]1 [place] [address] Medication Refill Social History Tobacco Use Types [...] Provider Dept 09/10/22 Appointment Yaw Sol MD [facility] Showing future appointments within next 90 [...] documented as of this encounter Care Teams Planer Chain Offbearer Relationship Specialty Start Date End Date Yaw Sol MD PCP - General Family Medicine 06/18/20 10/18/22 Provider, Unknown UNKNOWN PCP - General 10/23/22 04/10/23 Provider, None [place] PCP - General 04/11/23 Provider, Unknown UNKNOWN 04/11/23 documented as of this encounter
--- OUTSIDE RECORDS SUMMARY | 2024-11-08 19:42 | XMS_ITS | Encounter Summary ---
Author Organization [facility] Address [address] [place] [address] Phone Care Team Providers Care Rod Bending Machine Operator Name Role Phone Yaw Sol MD Primary Care Provider [phone] Provider, Unknown Primary Care Provider Unavaila ble Provider, None Primary Care Provider Unavailabl e Provider, Unknown Unavailable Unavailable Reason for Visit * Reason Comments Medication Refill Encounter Details Date Type Department Care Team (Late st Contact Info) Description 07/02/2022 Refill [facility] [address]2 [place] [phone] Yaw Sol MD [address]1 [place] [address] Medication Refill Social History Tobacco Use Types [...] Chey Crane RMA - 07/05/2022 9:19 AM CONTRACT PROGRAMMER Mailed letter RACT PROGRAMMER * Telephone Encounter - Kristina Cotton RN - 07/02/2022 5:19 PM CST Needs OV with PCP RACT PROGRAMMER * Telephone Encounter - Kristina Cotton RN [...] LDL, HDLCHOLESTE, CHOLESTEROL, TRIGLYCRIDES, VLDL, CHDL, HDLNON RACT PROGRAMMER documented in this encounter Plan of Treatment [...] documented as of this encounter Care Teams Rod Bending Machine Operator Relationship Specialty Start Date End Date Yaw Sol MD PCP - General Family Medicine 06/18/20 10/18/22 Provider, Unknown UNKNOWN PCP - General 10/23/22 04/10/23 Provider, None [place] PCP - General 04/11/23 Provider, Unknown UNKNOWN 04/11/23 documented as of this encounter
--- OUTSIDE RECORDS SUMMARY | 2024-11-08 19:42 | XMS_ITS | Clinical Summary ---
Author Organization [facility] Address [address] [address] Phone Care Team Providers Care Coffee Maker Name Role Phone Provider, None Primary Care [...] Lnp-s, Pf, 3 0 Mcg/0.3 Ml Dose (Digital Vega) 06/05/2021 TDAP Vaccine 06/02/2020,01/02/2019,12/08/2016 Tuberculin Skin Test; [...] (2 - season) 2024 06/05/2021 Influenza Immunization (#1) 2024 05/24/2018 Td Immunization Every 10 Yea [...] this topic Insurance MEDICAID [place] MEDICARE [facility] C WELLCARE Advance Directives * Full Code (Latest Code Status on File) Date Activated Date Inactivated Comments 11/26/2020 10:26 AM 07/22/2021 4:56 AM Care Teams Coffee Maker Relationship Specialty Start Date End Date Provider, None [place] PCP - General 04/11/23 Provider, Unknown UNKNOWN 04/11/23
--- OUTSIDE RECORDS SUMMARY | 2024-11-08 19:42 | XMS_ITS | Referral Summary ---
Author Organization [facility] Address [address] [place] [address] Care Team Providers Care Timing Adjuster Name Role Phone Miscellaneous, Not In File [...] with motrin as needed Cerebrovascular accident (CVA) ([facility]) Assessment & Plan (10/14/2021 12:45 AM CDT): H/o L MCA CVA. Patient had expressive aphasia and right sided weakness from review of EMR. Unclear what residual deficits patient had. Patient also reports being admitted 1 month ago at [facility] for CVA. Will need to obtain records. [...] may need MRI to r/o new CVA. CRUSHER PLANT OPERATOR consulted. Will need to obtain records from patient's admission 1month ago at [facility]. Immunizations Immunization Administration Dates Next Due Tdap [...] on file Legal Sex Male 7:03 PM HUMAN RESOURCE MANAGEMENT INSTRUCTOR Gender Identity Not on file Sexual Orientation [...] PELVIS W CONTRAST ED 05/24/2020 6:38 PM HUMAN RESOURCE MANAGEMENT INSTRUCTOR from Last 3 Months or Most Recently Relevant to Health Maintenance Results * CT Abdomen Pelvis W Contrast (05/24/2020 6:38 PM HUMAN RESOURCE MANAGEMENT INSTRUCTOR) Anatomical Region Laterality Modality Body N/A Computed Tomogra phy 05/24/2020 6:28 PM HUMAN RESOURCE MANAGEMENT INSTRUCTOR Impressions 05/24/2020 6:52 PM HUMAN RESOURCE MANAGEMENT INSTRUCTOR No acute inflammatory process is noted. No cholecystitis. Normal appendix. Diverticulosis without diverticulitis THIS IS AN ELECTRONICALLY VERIFIED FINAL REPORT 05/24/2020 6:48 PM - Electronically signed by Alvino Cruz M.D. NC: JESSIE Report ID: [id number] Reading Location: [id number] [facility] 05/24/2020 6:52 PM HUMAN RESOURCE MANAGEMENT INSTRUCTOR [facility] Imaging Result Name: BENITO CISSE Ordering Phys: ANN GÓMEZ Age: 69 Date of : 1950 Accession Number: [id number] Date of Service: 05/24/2020 Gender: M EXAM [...] Procedure Note Alvino Cruz MD - 05/24/2020 [facility] Imaging Result Name: BENITO CISSE Ordering Phys: ANN GÓMEZ Age: 69 Date of : 1950 Accession Number: [id number] Date of Service: 05/24/2020 Gender: M EXAM [...] Alvino Cruz M.D. NC: JESSIE Report ID: [id number] Reading Location: [place] [address] Ann Gómez MD IMG CT PROCEDURES F inal Result from Last 3 Months or Most Recently Relevant to Health Maintenance Insurance IDIL [employer]LLC[employer] MEDICARE HMO MEDICARE [facility] Address: [address] [address] [place] [address] [place] [facility] MEDICARE HMO MANAGED MEDICARE GENERIC RISK OTHER [facility] Member Subscriber Plan / Payer (Ef fective 2021-Present) Name:Benito Cisse Member ID:[id number] Relation to Subscriber:Self Name:Benito Cisse Subscriber ID:[id number] Payer ID:[id number] (NAIC) Group ID:Not on file Type:MEDICARE RISK OTHER Address: [facility] ATTN: CLAIMS [address] [place] [id number] [place] [address] WELLCARE MEDICARE HMO Advance Directives For more information, please contact: [phone] * Full Code (Latest Code Status on [...] 11:22 AM 09/24/2018 5:51 PM Care Teams Timing Adjuster Relationship Specialty [place] [address] [place] [address] PCP - General Family Medicine 05/24/20 Miscellaneous, Not In File 08/20/18
--- OUTSIDE RECORDS SUMMARY | 2024-11-08 19:42 | XMS_ITS | Clinical Summary ---
Author Organization [facility] Address [address] [place] [address] Care Team Providers Care Bleach Liquor Maker Name Role Phone Miscellaneous, Not In File [...] with motrin as needed Cerebrovascular accident (CVA) ([facility]) Assessment & Plan (10/14/2021 12:45 AM CDT): H/o L MCA CVA. Patient had expressive aphasia and right sided weakness from review of EMR. Unclear what residual deficits patient had. Patient also reports being admitted 1 month ago at [facility] for CVA. Will need to obtain records. [...] may need MRI to r/o new CVA. SOLE INKER consulted. Will need to obtain records from patient's admission 1month ago at [facility]. Immunizations Immunization Administration Dates Next Due Tdap 01/02/2019,12/08/2016 Surgical History Surgery Date Site/Laterality Comments JOINT REPLACEMENT Left knee BACK SURGERY Medical History Medical History Date Comments Arthritis COPD (chronic obstructive pulmonary disease) ( C) Stroke ([facility]) Social History Tobacco Use Types Packs/Day [...] on file Legal Sex Male 7:03 PM SLIP PRESSER Gender Identity Not on file Sexual Orientation [...] PELVIS W CONTRAST ED 05/24/2020 6:38 PM SLIP PRESSER from Last 3 Months or Most Recently Relevant to Health Maintenance Results * CT Abdomen Pelvis W Contrast (05/24/2020 6:38 PM SLIP PRESSER) Anatomical Region Laterality Modality Body N/A Computed Tomogra phy 05/24/2020 6:28 PM SLIP PRESSER Impressions 05/24/2020 6:52 PM SLIP PRESSER No acute inflammatory process is noted. No cholecystitis. Normal appendix. Diverticulosis without diverticulitis THIS IS AN ELECTRONICALLY VERIFIED FINAL REPORT 05/24/2020 6:48 PM - Electronically signed by Alvino Cruz M.D. NC: JESSIE Report ID: [id number] Reading Location: [id number] [facility] 05/24/2020 6:52 PM SLIP PRESSER [facility] Imaging Result Name: BENITO CISSE Ordering Phys: TRI GÓMEZ Age: 69 Date of : 1950 Accession Number: [id number] Date of Service: 05/24/2020 Gender: M EXAM [...] Procedure Note Alvino Cruz MD - 05/24/2020 [facility] Imaging Result Name: BENITO CISSE Ordering Phys: TRI GÓMEZ Age: 69 Date of : 1950 Accession Number: [id number] Date of Service: 05/24/2020 Gender: M EXAM [...] Alvino Cruz M.D. NC: JESSIE Report ID: [id number] Reading Location: [id number] Tri Gómez MD IMG CT PROCEDURES F inal Result from Last 3 Months or Most Recently Relevant to Health Maintenance Insurance IDWV WELLCARE MEDICARE HMO MEDICARE IDPA [facility] MEDICARE HMO [facility] MEDICARE GENERIC RISK OTHER [facility] [place] WELLCARE MEDICARE HMO Advance Directives For more information, please contact: [phone] * Full Code (Latest Code Status on [...] 11:22 AM 09/24/2018 5:51 PM Care Teams Bleach Liquor Maker Relationship Specialty [place] [address] [place] [address] PCP - General Family Medicine 05/24/20 Miscellaneous, Not In File 08/20/18
--- OUTSIDE RECORDS SUMMARY | 2024-11-08 19:42 | XMS_ITS | Encounter Summary ---
Author Organization [facility] Address [address] [place] [address] Phone Care Team Providers Care Packaging Mechanic Name Role Phone Yaw Sol MD Primary Care Provider [phone] Provider, Unknown Primary Care Provider Unavaila ble Provider, None Primary Care Provider Unavailabl e Provider, Unknown Unavailable Unavailable Lanie Whitaker CHARGE OUT CLERK Unavailable Unavailab le Reason for Visit * Reason Comments Medication Refill Encounter Details Date Type Department Care Team (Late st Contact Info) Description 10/28/[address] [facility] - Family Medicine [facility] [address] [place] [phone] Yaw Sol MD [address] [place] [address] Medication Refill Social History Tobacco Use Types [...] [facility] 11/12/20 Office Visit Darek Salamanca, KILN STOKER, WEB CONTENT EDITOR [facility] within past 365 days [...] Sol MD [facility] 01/26/21 Office Visit Ywa Sol MD [facility] 12/10/20 Office Visit Yaw Sol MD [facility] 11/12/20 Office Visit Darek Salamanca APRN, WEB CONTENT EDITOR [facility] Showing recent visits within past 365 [...] documented as of this encounter Care Teams Packaging Mechanic Relationship Specialty Start Date End Date Yaw Sol MD PCP - General Family Medicine 06/18/20 10/18/22 Provider, Unknown UNKNOWN PCP - General 10/23/22 04/10/23 Provider, None [place] PCP - General 04/11/23 Provider, Unknown UNKNOWN 04/11/23 Lanie Whitaker LSW [place] Cigarette Maker 01/26/21 12/17/21 documented as of this encounter
--- NOTE | 2024-11-09 00:02 | PC.NURSE ---
Pt presents to ED c/o eye irritation and pain medication. Pt denies trauma to eye, denies any irritant. Pt denies vision changes, endorses light sensitivity.
--- OUTSIDE RECORDS SUMMARY | 2024-11-09 00:14 | XMS_ITS | Referral Summary ---
Author Organization [facility] Address [address] [place] [address] Care Team Providers Care Dat Instructor Name Role Phone Miscellaneous, Not In File [...] with motrin as needed Cerebrovascular accident (CVA) ([facility]) Assessment & Plan (10/14/2021 12:45 AM CDT): H/o L MCA CVA. Patient had expressive aphasia and right sided weakness from review of EMR. Unclear what residual deficits patient had. Patient also reports being admitted 1 month ago at [facility] for CVA. Will need to obtain records. [...] may need MRI to r/o new CVA. ROLLER STRUCTURAL MILL consulted. Will need to obtain records from patient's admission 1month ago at [facility]. Immunizations Immunization Administration Dates Next Due Tdap [...] on file Legal Sex Male 7:03 PM LOCKSTITCH SLEEVE MAKER Gender Identity Not on file Sexual Orientation [...] PELVIS W CONTRAST ED 05/24/2020 6:38 PM LOCKSTITCH SLEEVE MAKER from Last 3 Months or Most Recently Relevant to Health Maintenance Results * CT Abdomen Pelvis W Contrast (05/24/2020 6:38 PM LOCKSTITCH SLEEVE MAKER) Anatomical Region Laterality Modality Body N/A Computed Tomogra phy 05/24/2020 6:28 PM LOCKSTITCH SLEEVE MAKER Impressions 05/24/2020 6:52 PM LOCKSTITCH SLEEVE MAKER No acute inflammatory process is noted. No cholecystitis. Normal appendix. Diverticulosis without diverticulitis THIS IS AN ELECTRONICALLY VERIFIED FINAL REPORT 05/24/2020 6:48 PM - Electronically signed by Alvino Cruz M.D. NC: JESSIE Report ID: [id number] Reading Location: [id number] [facility] 05/24/2020 6:52 PM LOCKSTITCH SLEEVE MAKER [facility] Imaging Result Name: BENITO CISSE Ordering Phys: TRI GÓMEZ Age: 69 Date of : 1950 Accession Number: [id number] Date of Service: 05/24/2020 Gender: M EXAM [...] 69 Date of : 1950 Accession Number: [id number] Date of Service: 05/24/2020 Gender: M EXAM [...] Alvino Cruz M.D. NC: JESSIE Report ID: [id number] Reading Location: [place] [address] Tri Gómez MD IMG CT PROCEDURES F inal Result from Last 3 Months or Most Recently Relevant to Health Maintenance Insurance [employer]AR [employer]LLC[employer] MEDICARE HMO MEDICARE [facility] MEDICARE HMO MANAGED MEDICARE GENERIC RISK OTHER [facility] Member Subscriber Plan / Payer (Ef fective 2021-Present) Name:Benito Cisse Member ID:[id number] Relation to Subscriber:Self Name:Benito Cisse Subscriber ID:[id number] Payer ID:[id number] (NAIC) Group ID:Not on file Type:MEDICARE RISK OTHER Address: [facility] ATTN: CLAIMS [address] [place] [phone] [place] [address] WELLCARE MEDICARE HMO Advance Directives For more information, please contact: [phone] * Full Code (Latest Code Status on [...] 11:22 AM 09/24/2018 5:51 PM Care Teams Dat Instructor Relationship Specialty [place] [address] [place] [address] PCP - General Family Medicine 05/24/20 Miscellaneous, Not In File 08/20/18
--- OUTSIDE RECORDS SUMMARY | 2024-11-09 00:14 | XMS_ITS | Clinical Summary ---
Author Organization [facility] Address [address] [address] Phone Care Team Providers Care Signing Teacher Name Role Phone Provider, None Primary Care [...] Lnp-s, Pf, 3 0 Mcg/0.3 Ml Dose (Scopis) 06/05/2021 TDAP Vaccine 06/02/2020,01/02/2019,12/08/2016 Tuberculin Skin Test; [...] this topic Insurance MEDICAID [place] MEDICARE C [facility] MEDIC[facility] C WELLCARE Advance Directives * Full Code (Latest Code Status on File) Date Activated Date Inactivated Comments 11/26/2020 10:26 AM 07/22/2021 4:56 AM Care Teams Signing Teacher Relationship Specialty Start Date End Date Provider, None [place] PCP - General 04/11/23 Provider, Unknown UNKNOWN 04/11/23
--- OUTSIDE RECORDS SUMMARY | 2024-11-09 00:14 | XMS_ITS | Clinical Summary ---
Author Organization [facility] Address [address] [place] [address] Care Team Providers Care Lithographic Stripper Name Role Phone Unavailable Primary Care Provider Unavailabl e Source Comments [facility],non-owned Affiliates and Associated Physician Practices is amultiple site organization consisting of ambulatory clinics and hospital sitesin [place], [place], [place] and [place]. This disclosure is being madepursuant to the Care Everywhere program and may not contain all information available regarding this patient. Last updated 18.[facility] localbacon Allergies No known active allergies Medications * [...] on file Legal Sex Male 4:51 PM SWEET POTATO DISINTEGRATOR Gender Identity Not on file Sexual Orientation Not on file Last Filed Vital Signs Vital Sign Reading Time Taken Comments Blood Pressure 116/62 06/06/2019 7:10 AM SWEET POTATO DISINTEGRATOR Pulse 61 06/06/2019 7:10 AM SWEET POTATO DISINTEGRATOR Temperature 36.1 C (96.9 F) 06/06/2019 7:10 AM SWEET POTATO DISINTEGRATOR Respiratory Rate 20 06/06/2019 10:14 AM SWEET POTATO DISINTEGRATOR Oxygen Saturation 99% 06/06/2019 7:10 AM SWEET POTATO DISINTEGRATOR Inhaled Oxygen Concentration - - Weight 77.1 kg (170 lb) 06/06/2019 7:10 AM SWEET POTATO DISINTEGRATOR Height 167.6 cm (5' 6) 06/06/2019 7:10 AM SWEET POTATO DISINTEGRATOR Body Mass Index 27.44 06/06/2019 7:10 AM SWEET POTATO DISINTEGRATOR Plan of Treatment Health Maintenance Due Date [...] topic Insurance MEDICAID - OUT OF STATE [facility] MEDICAID [place]EF[place] - [place] WELLCARE
--- OUTSIDE RECORDS SUMMARY | 2024-11-09 00:14 | XMS_ITS | Encounter Summary ---
Author Organization [facility] Address [address] [place] [address] Phone Care Team Providers Care Dye Feeder Name Role Phone Yaw Sol MD Primary Care Provider [phone] Provider, Unknown Primary Care Provider Unavaila ble Provider, None Primary Care Provider Unavailabl e Provider, Unknown Unavailable Unavailable Lanie Whitaker Unavailable Unavailab le Reason for Visit * Reason Comments Medication Refill Encounter Details Date Type Department Care Team (Late st Contact Info) Description 11/27/2021 Refill [facility] - Family Medicine [facility] [address] [place] [phone] Darek Salamanca, FORESTRY SUPPORT SPECIALIST, DISTRIBUTOR OPERATOR [address] [address] Medication Refill Social History Tobacco Use Types [...] documented as of this encounter Care Teams Dye Feeder Relationship Specialty Start Date End Date Yaw Sol MD PCP - General Family Medicine 06/18/20 10/18/22 Provider, Unknown UNKNOWN PCP - General 10/23/22 04/10/23 Provider, None [place] PCP - General 04/11/23 Provider, Unknown UNKNOWN 04/11/23 Lanie Whitaker LSW [place] Location Director 01/26/21 12/17/21 documented as of this encounter
--- OUTSIDE RECORDS SUMMARY | 2024-11-09 00:14 | XMS_ITS | Encounter Summary ---
Author Organization [facility] Address [address] [place] [address] Phone Care Team Providers Care Pasta Maker Name Role Phone Yaw Sol MD Primary Care Provider [phone] Provider, Unknown Primary Care Provider Unavaila ble Provider, None Primary Care Provider Unavailabl e Provider, Unknown Unavailable Unavailable Reason for Visit * Reason Comments Medication Refill Encounter Details Date Type Department Care Team (Late st Contact Info) Description 06/25/2022 Refill [facility] #2 [place] [phone] Yaw Sol MD [address] [place] [address] Medication Refill Social History Tobacco Use Types [...] Bustamante RN - 06/28/2022 8:21 AM MANAGER UTILIZATION REVIEW Patient needs appointment. Medication failed the protocol, [...] days and meeting all other requirements GER UTILIZATION REVIEW documented in this encounter Plan of Treatment [...] documented as of this encounter Care Teams Pasta Maker Relationship Specialty Start Date End Date Yaw Sol MD PCP - General Family Medicine 06/18/20 10/18/22 Provider, Unknown UNKNOWN PCP - General 10/23/22 04/10/23 Provider, None [place] PCP - General 04/11/23 Provider, Unknown UNKNOWN 04/11/23 documented as of this encounter
--- OUTSIDE RECORDS SUMMARY | 2024-11-09 00:14 | XMS_ITS | Clinical Summary ---
Author Organization [facility] Address [address] [place] [address] Care Team Providers Care Jumbo Operator Name Role Phone Miscellaneous, Not In [...] with motrin as needed Cerebrovascular accident (CVA) ([facility]/HCC) Assessment & Plan (10/14/2021 12:45 AM CDT): H/o L MCA CVA. Patient had expressive aphasia and right sided weakness from review of EMR. Unclear what residual deficits patient had. Patient also reports being admitted 1 month ago at [place] for CVA. Will need to obtain records. [...] may need MRI to r/o new CVA. DIRECTOR OF RADIOLOGY consulted. Will need to obtain records from patient's admission 1month ago at [facility]. Immunizations Immunization Administration Dates Next Due Tdap 01/02/2019,12/08/2016 Surgical History Surgery Date Site/Laterality Comments JOINT REPLACEMENT Left knee BACK SURGERY Medical History Medical History Date Comments Arthritis COPD (chronic obstructive pulmonary disease) ( C) Stroke ([facility]) Social History Tobacco Use Types Packs/Day Years [...] on file Legal Sex Male 7:03 PM BALANCE SCREWHEAD POLISHER Gender Identity Not on file Sexual Orientation [...] PELVIS W CONTRAST ED 05/24/2020 6:38 PM BALANCE SCREWHEAD POLISHER from Last 3 Months or Most Recently Relevant to Health Maintenance Results * CT Abdomen Pelvis W Contrast (05/24/2020 6:38 PM BALANCE SCREWHEAD POLISHER) Anatomical Region Laterality Modality Body N/A Computed Tomogra phy 05/24/2020 6:28 PM BALANCE SCREWHEAD POLISHER Impressions 05/24/2020 6:52 PM BALANCE SCREWHEAD POLISHER No acute inflammatory process is noted. No cholecystitis. Normal appendix. Diverticulosis without diverticulitis THIS IS AN ELECTRONICALLY VERIFIED FINAL REPORT 05/24/2020 6:48 PM - Electronically signed by Alvino Cruz M.D. NC: JESSIE Report ID: [id number] Reading Location: [id number] [facility] 05/24/2020 6:52 PM BALANCE SCREWHEAD POLISHER [facility] Imaging Result Name: BENITO CISSE Ordering Phys: TRI GÓMEZ Age: 69 Date of : 1950 Accession Number: [id number] Date of Service: 05/24/2020 Gender: M EXAM [...] Procedure Note Alvino Cruz MD - 05/24/2020 [facility] Imaging Result Name: BENITO CISSE Ordering Phys: TRI GÓMEZ Age: 69 Date of : 1950 Accession Number: [id number] Date of Service: 05/24/2020 Gender: M EXAM [...] Alvino Cruz M.D. NC: JESSIE Report ID: [id number] Reading Location: [id number] Tri Gómez MD IMG CT PROCEDURES F inal Result from Last 3 Months or Most Recently Relevant to Health Maintenance Insurance [employer] MEDICARE HMO MEDICARE [facility] MEDICARE HMO [facility] MEDICARE GENERIC RISK OTHER [facility] [place] [employer] [employer] MEDICARE HMO Advance Directives For more information, please contact: [phone] * Full Code (Latest Code Status on [...] 11:22 AM 09/24/2018 5:51 PM Care Teams Jumbo Operator Relationship Specialty [place] [address] [place] [address] PCP - General Family Medicine 05/24/20 Miscellaneous, Not In File 08/20/18
--- OUTSIDE RECORDS SUMMARY | 2024-11-09 00:14 | XMS_ITS | Encounter Summary ---
Author Organization [facility] Address [address] [place] [address] Phone Care Team Providers Care Parachute Cushion Installer Name Role Phone Yaw Sol MD Primary Care Provider [phone] Provider, Unknown Primary Care Provider Unavaila ble Provider, None Primary Care Provider Unavailabl e Provider, Unknown Unavailable Unavailable Lanie Whitaker DIRECTOR OF CASEWORK DEPARTMENT Unavailable Unavailab le Reason for Visit * Reason Comments Medication Refill Encounter Details Date Type Department Care Team (Late st Contact Info) Description 10/28/2021 Refill [facility] - Family Medicine [facility] [address] [place] [id number] Yaw Sol MD [address] [place] [address] Medication Refill Social History Tobacco Use Types [...] Osifrah Spears 11/12/20 Office Visit Darek Salamanca, EQUIP TECH, PLANT PHYSIOLOGY TEACHER [facility] Showing recent visits within past 365 days [...] Spears 11/12/20 Office Visit Darek Salamanca APRN, PLANT PHYSIOLOGY TEACHER [facility] Showing recent visits within past 365 [...] documented as of this encounter Care Teams Parachute Cushion Installer Relationship Specialty Start Date End Date Yaw Sol MD PCP - General Family Medicine 06/18/20 10/18/22 Provider, Unknown UNKNOWN PCP - General 10/23/22 04/10/23 Provider, None [place] PCP - General 04/11/23 Provider, Unknown UNKNOWN 04/11/23 Lanie Whitaker LSW [place] Line Clearance Foreman 01/26/21 12/17/21 documented as of this encounter
--- OUTSIDE RECORDS SUMMARY | 2024-11-09 00:15 | XMS_ITS | Encounter Summary ---
Author Organization [facility] Address [address] [place] [address] Phone Care Team Providers Care Manager Operations Research Name Role Phone Yaw Sol MD Primary Care Provider [phone] Provider, Unknown Primary Care Provider Unavaila ble Provider, None Primary Care Provider Unavailabl e Provider, Unknown Unavailable Unavailable Reason for Visit * Reason Comments Medication Refill Encounter Details Date Type Department Care Team (Late st Contact Info) Description 07/31/2022 [facility]ill [facility] [address] [place] [id number] Yaw Sol MD [address] [place] [address] Medication Refill Social History Tobacco Use Types [...] documented as of this encounter Care Teams Manager Operations Research Relationship Specialty Start Date End Date Yaw Sol MD PCP - General Family Medicine 06/18/20 10/18/22 Provider, Unknown UNKNOWN PCP - General 10/23/22 04/10/23 Provider, None [place] PCP - General 04/11/23 Provider, Unknown UNKNOWN 04/11/23 documented as of this encounter
--- OUTSIDE RECORDS SUMMARY | 2024-11-09 00:15 | XMS_ITS | Encounter Summary ---
Author Organization [facility] Address [address] [place] [address] Phone Care Team Providers Care Gas Fitter Helper Name Role Phone Yaw Sol MD Primary Care Provider Provider, Unknown Primary Care Provider Unavaila ble Provider, None Primary Care Provider Unavailabl e Provider, Unknown Unavailable Unavailable Reason for Visit * Reason Comments Medication Refill Encounter Details Date Type Department Care Team (Late st Contact Info) Description 07/02/2022 Refill [facility] Family [facility] [address] [place] [phone] Yaw Sol MD [address] [place] [address] Medication Refill Social History Tobacco Use Types [...] Chey Crane RMA - 07/05/2022 9:19 AM COMPLETION ENGINEER Mailed letter LETION ENGINEER * Telephone Encounter - Kristina Cotton RN - 07/02/2022 5:19 PM CST Needs OV with PCP LETION ENGINEER * Telephone Encounter - Kristina Cotton RN [...] LDL, HDLCHOLESTE, CHOLESTEROL, TRIGLYCRIDES, VLDL, CHDL, HDLNON LETION ENGINEER documented in this encounter Plan of Treatment [...] documented as of this encounter Care Teams Gas Fitter Helper Relationship Specialty Start Date End Date Yaw Sol MD PCP - General Family Medicine 06/18/20 10/18/22 Provider, Unknown UNKNOWN PCP - General 10/23/22 04/10/23 Provider, None [place] PCP - General 04/11/23 Provider, Unknown UNKNOWN 04/11/23 documented as of this encounter
--- OUTSIDE RECORDS SUMMARY | 2024-11-09 00:15 | XMS_ITS | Encounter Summary ---
Author Organization [facility] Address [address] [place] [address] Phone Care Team Providers Care Self Propelled Dredge Operator Name Role Phone Yaw Sol MD Primary Care Provider Provider, Unknown Primary Care Provider Unavaila ble Provider, None Primary Care Provider Unavailabl e Provider, Unknown Unavailable Unavailable Reason for Visit * Reason Comments Medication Refill Encounter Details Date Type Department Care Team (Late st Contact Info) Description 08/27/2022 Refill [facility] [address] [place] [phone] Yaw Sol MD [address] [place] [address] Medication Refill Social History Tobacco Use Types [...] Provider Dept 09/10/22 Appointment Yaw Sol MD [facility] Showing future appointments within next 90 days [...] documented as of this encounter Care Teams Self Propelled Dredge Operator Relationship Specialty Start Date End Date Yaw Sol MD PCP - General Family Medicine 06/18/20 10/18/22 Provider, Unknown UNKNOWN PCP - General 10/23/22 04/10/23 Provider, None [place] PCP - General 04/11/23 Provider, Unknown UNKNOWN 04/11/23 documented as of this encounter
--- NOTE | 2024-11-09 00:24 | ED_ITS ---
HPI - Eye Problem General Chief complaint: Eye Problems Stated complaint: EYES BURNING AND IRRITATED Time Seen by Provider: 11/09/24 00:02 History of Present Illness HPI Narrative: Patient is a 73-year-old male who presents emergency department this evening complaining of bilateral eye pain. Patient does have bilateral conjunctival injection with yellow crusting consistent with bacterial conjunctivitis. Denies any recent exposure to any irritants. Denies any vision loss or blurry visions. Patient states that the pain started about an hour ago. Denies any additional symptoms or concerns at this time. Related Data Home Medications ?Medication ?Instructions ?Recorded ?Confirmed ?Last Taken ?Type naproxen 500 mg tablet 500 mg PO BID PRN Pain (Scale 12/01/23 12/01/23 Unknown History Score 1-3) Allergies Allergy/AdvReac Type Severity Reaction Status Date / Time No Known Allergies Allergy Verified 11/08/24 19:40 Review of Systems Review of Systems: All systems are reviewed and are negative unless stated otherwise in the HPI. [facility] Past Medical History Medical History Cocaine abuse Tobacco abuse Normocytic anemia History of depression History of anxiety History of CHF (congestive heart failure) Arthritis Surgical History Surgical History History of left knee replacement Social History Social History Smoking packs per day: 1 Smoking cigarettes per day: 20.0 Smoking status: Current every day smoker Alcohol intake: never Substance use: current Substance use type: crack/cocaine Last use: POSITIVE LABS ON ADMISSION Do You Feel Safe in your Home?: Yes Lack of Transportation: YES Lack of Food: Sometimes True Current Housing: I Do Not Have Housing Concerned About Future Housing: YES Difficulty Paying Gas/Electric Bills: YES Difficulty Paying for Meds: YES Currently Unemployed: YES Education: Don't Know Difficulty w/ Childcare or Family Care: No Gender identity (if verbalized by the patient): Male Spiritual care concerns: No Exam Narrative: General: Alert, awake, afebrile, in no acute distress. HEENT: PERRL, no rhinorrhea, no post nasal drip, oropharynx clear, bilateral conjunctivitis/conjunctival injection with yellow crusting around the eyelids consistent with bacterial conjunctivitis, fluorescent staining did not reveal any corneal abrasions, although exam was limited as patient was not cooperative. Neck: Trachea midline, no JVD, no lymphadenopathy. Cardiovascular: Regular rate and rhythm, no murmurs, rubs or gallops, no peripheral edema. Respiratory: Clear to auscultation bilaterally, no tachypnea, no wheezing, no rhonchi, no rubs, no respiratory distress. Abdomen: Soft, nontender, nondistended, no rebound, no guarding, no peritoneal signs. Musculoskeletal: No joint swelling or deformity, normal muscle tone. Skin: No rashes or petechia, no signs of infection. Psychiatric: Alert and oriented, normal behavior and judgment for situation. Neurological: Alert and oriented to person, place, and time. Follows all commands. No focal deficits, speech is clear and fluent. Course Vital Signs Vital signs: Vital Signs Temperature 97.4 F L 11/08/24 19:42 Pulse Rate 79 11/08/24 19:42 Respiratory Rate 18 11/08/24 19:42 Blood Pressure 118/50 L 11/08/24 19:42 Pulse Oximetry 100 11/08/24 19:42 Temperature 97.4 F L 11/08/24 19:42 Pulse Rate 79 11/08/24 19:42 Respiratory Rate 18 11/08/24 19:42 Blood Pressure 118/50 L 11/08/24 19:42 Pulse Oximetry 100 11/08/24 19:42 MDM - Eye Problem MDM Narrative Medical decision making narrative: The patient was evaluated by myself in the emergency department. History is obtained from patient who is an independent historian and physical exam was performed. External medical records were reviewed at this time. Differential diagnosis considerations include bacterial versus viral conjunctivitis, corneal abrasion. Comorbidities impacting this visit include none. I have evaluated and discussed social determinants of health with the patient that could potentially impact subsequent diagnosis and treatment plans. On repeat assessment of the patient, reevaluation revealed that the patient is doing well and is in no acute distress. Patient symptoms have improved since he arrived to our emergency department. Repeat vital signs were all reviewed and noted to be stable. Differential diagnosis and treatment plan were discussed with the patient at bedside. Patient agrees with discussion and after shared medical decision making agrees with discharge. All questions were answered to the patient's satisfaction. Patient will follow up with Ophthalmology at the [facility] in 3-5 days. Provided with ofloxacin eyedrops and instruct her to use them as prescribed. Patient was provided with strict return precautions and instructed to return to the emergency department if any new or worsening symptoms develop. The patient was discharged in stable condition. Discharge Plan Discharge Clinical Impression: Bacterial conjunctivitis Patient Disposition: Home Condition: Improved Instructions: Antibiotic Form, Conjunctivitis (ED) Additional Instructions: Please follow-up with the [facility] within the next 2-3 days. Use the eyedrops that you were prescribed in the emergency department today. Return to the emergency department if any new or worsening symptoms develop. Patient Language: [place] Citizen Prescriptions: No Action naproxen 500 mg tablet 500 mg PO BID PRN (Reason: Pain (Scale Score 1-3)) amoxicillin-pot clavulanate 875-125 mg tablet 1 tablet PO Q12H Qty: 14 0RF prednisone 20 mg tablet 40 mg PO DAILY Qty: 10 0RF albuterol sulfate 90 mcg/actuation HFA aerosol inhaler 1 inh inhalation QID PRN (Reason: shortness of breath or wheezing) Qty: 6.7 0RF lidocaine 5 % adhesive patch,medicated 1 patch topical DAILY Qty: 15 0RF Rx Instructions: leave on most painful area for up to 12 hrs naproxen 500 mg tablet 500 mg PO BID PRN (Reason: pain) Qty: 20 0RF azithromycin 250 mg tablet 250 mg PO DAILY 4 Days Qty: 4 0RF Rx Instructions: start on day 2 of therapy prednisone 20 mg tablet 40 mg PO DAILY 4 Days Qty: 8 0RF albuterol sulfate 90 mcg/actuation HFA aerosol inhaler 2 puff inhalation QID PRN (Reason: shortness of breath or wheezing) Qty: 8.5 0RF amoxicillin 500 mg capsule 1,000 mg PO Q8H 5 Days Qty: 30 0RF azithromycin 250 mg tablet See Rx Instructions .ROUTE .COMPLEX Qty: 6 0RF Rx Instructions: For 250 mg dose pack: take 500 mg today (day 1), then 250 mg for 4 days (days 2-5) Follow-up/Referrals: [facility] [Outside] - 2 Days UNKNOWN,DOCTOR [Primary Care Provider] - Time of Disposition: 00:25
[2024-11-09] MEDS: OFLOXACIN 0.3% OPHTH SOLN 5 ML BTL 1 DROP EACH EYE (01:58)
== END 2024-11-09 02:05 | disposition home or self-care (01) ==
PROVIDERS: Emergency Provider Emergency Medicine
DX: H10.89 Other conjunctivitis (principal); I50.9 Heart failure, unspecified; M19.90 Unspecified osteoarthritis, unspecified site; F17.210 Nicotine dependence, cigarettes, uncomplicated; Z86.2 Personal history of diseases of the blood and blood-forming organs and certain disorders involving the immune mechanism; Z96.653 Presence of artificial knee joint, bilateral
CPT/HCPCS: 99283; A9270

== ENCOUNTER 2024-11-16 11:44 | Emergency (ER) | payer OTHER, MEDICAID, SELFPAY ==
--- OUTSIDE RECORDS SUMMARY | 2024-11-16 11:47 | XMS_ITS | Encounter Summary ---
Author Organization [facility] Address [address] [place] [address] Phone Care Team Providers Care Assistant Health Educator Name Role Phone Yaw Sol MD Primary Care Provider [phone] Provider, Unknown Primary Care Provider Unavaila ble Provider, None Primary Care Provider Unavailabl e Provider, Unknown Unavailable Unavailable Reason for Visit * Reason Comments Medication Refill Encounter Details Date Type Department Care Team (Late st Contact Info) Description 06/25/2022 Refill [facility] [address] [place] [phone] Yaw Sol MD [address] [place] [address] Medication Refill Social History Tobacco Use Types [...] Na Bustamante RN - 06/28/2022 8:21 AM YARN SPOOLER Patient needs appointment. Medication failed the protocol, [...] 90 days and meeting all other requirements SPOOLER documented in this encounter Plan of Treatment [...] documented as of this encounter Care Teams Assistant Health Educator Relationship Specialty Start Date End Date Yaw Sol MD PCP - General Family Medicine 06/18/20 10/18/22 Provider, Unknown UNKNOWN PCP - General 10/23/22 04/10/23 Provider, None [place] PCP - General 04/11/23 Provider, Unknown UNKNOWN 04/11/23 documented as of this encounter
--- OUTSIDE RECORDS SUMMARY | 2024-11-16 11:47 | XMS_ITS | Referral Summary ---
Author Organization [facility] Address [address] [place] [address] Care Team Providers Care Director Of Land Name Role Phone Miscellaneous, Not In File [...] with motrin as needed Cerebrovascular accident (CVA) ([facility]) Assessment & Plan (10/14/2021 12:45 AM CDT): H/o L MCA CVA. Patient had expressive aphasia and right sided weakness from review of EMR. Unclear what residual deficits patient had. Patient also reports being admitted 1 month ago at [place] for CVA. Will need to obtain records. [...] may need MRI to r/o new CVA. HAIR SPINNING MACHINE OPERATOR consulted. Will need to obtain records from patient's admission 1month ago at [place]. Immunizations Immunization Administration Dates Next Due Tdap [...] on file Legal Sex Male 7:03 PM LANDFILL GRADER Gender Identity Not on file Sexual Orientation [...] PELVIS W CONTRAST ED 05/24/2020 6:38 PM LANDFILL GRADER from Last 3 Months or Most Recently Relevant to Health Maintenance Results * CT Abdomen Pelvis W Contrast (05/24/2020 6:38 PM LANDFILL GRADER) Anatomical Region Laterality Modality Body N/A Computed Tomogra phy 05/24/2020 6:28 PM LANDFILL GRADER Impressions 05/24/2020 6:52 PM LANDFILL GRADER No acute inflammatory process is noted. No cholecystitis. Normal appendix. Diverticulosis without diverticulitis THIS IS AN ELECTRONICALLY VERIFIED FINAL REPORT 05/24/2020 6:48 PM - Electronically signed by Alvino Cruz M.D. NC: JESSIE Report ID: [id number] Reading Location: [id number] [facility] 05/24/2020 6:52 PM LANDFILL GRADER [facility] Imaging Result Name: BENITO CISSE Ordering Phys: TRI GÓMEZ Age: 69 Date of : 1950 Accession Number: [id number] Date of Service: 05/24/2020 Gender: M EXAM [...] Procedure Note Alvino Cruz MD - 05/24/2020 [facility] Imaging Result Name: BENITO CISSE Ordering Phys: TRI GÓMEZ Age: 69 Date of : 1950 Accession Number: [id number] Date of Service: 05/24/2020 Gender: M EXAM [...] Alvino Cruz M.D. NC: JESSIE Report ID: [id number] Reading Location: [place] [address] Tri Gómez MD IMG CT PROCEDURES F inal Result from Last 3 Months or Most Recently Relevant to Health Maintenance Insurance [employer] MEDICARE HMO MEDICARE [facility] Address: [address] [address] [place] [address] [place] [facility] MEDICARE HMO MANAGED MEDICARE GENERIC RISK OTHER [facility] Member Subscriber Plan / Payer (Ef fective 2021-Present) Name:Benito Cisse Member ID:[id number] Relation to Subscriber:Self Name:Benito Cisse Subscriber ID:[id number] Payer ID:[id number] (NAIC) Group ID:Not on file Type:MEDICARE RISK OTHER Address: [facility] ATTN: CLAIMS [address] [place] [id number] [place] [address] WELLCARE MEDICARE HMO Advance Directives For more information, please contact: [phone] * Full Code (Latest Code Status on [...] 11:22 AM 09/24/2018 5:51 PM Care Teams Director Of Land Relationship Specialty [place] [address] [place] [address] PCP - General Family Medicine 05/24/20 Miscellaneous, Not In File 08/20/18
--- OUTSIDE RECORDS SUMMARY | 2024-11-16 11:47 | XMS_ITS | Encounter Summary ---
Author Organization [facility] Address [address] [place] [address] Phone Care Team Providers Care Tire Repairman Name Role Phone Yaw Sol MD Primary Care Provider [phone] Provider, Unknown Primary Care Provider Unavaila ble Provider, None Primary Care Provider Unavailabl e Provider, Unknown Unavailable Unavailable Reason for Visit * Reason Comments Medication Refill Encounter Details Date Type Department Care Team (Late st Contact Info) Description 08/27/2022 Refill [facility] [address] [place] [phone] Yaw Sol MD [address] [place] [address] Medication Refill Social History Tobacco Use Types [...] Provider Dept 09/10/22 Appointment Yaw Sol MD [facility] Showing future appointments within next [...] documented as of this encounter Care Teams Tire Repairman Relationship Specialty Start Date End Date Yaw Sol MD PCP - General Family Medicine 06/18/20 10/18/22 Provider, Unknown UNKNOWN PCP - General 10/23/22 04/10/23 Provider, None [place] PCP - General 04/11/23 Provider, Unknown UNKNOWN 04/11/23 documented as of this encounter
--- OUTSIDE RECORDS SUMMARY | 2024-11-16 11:47 | XMS_ITS | Clinical Summary ---
Author Organization [facility] Address [address] [place] [address] Care Team Providers Care Cap Cutter Name Role Phone Unavailable Primary Care Provider Unavailabl e Source Comments [facility],non-owned Affiliates and Associated Physician Practices is amultiple site organization consisting of ambulatory clinics and hospital sitesin [place], [place], [place] and [place]. This disclosure is being madepursuant to the Care Everywhere program and may not contain all information available regarding this patient. Last updated 18.[facility] [employer] Allergies No known active allergies Medications * [...] on file Legal Sex Male 4:51 PM MOTOR TESTER Gender Identity Not on file Sexual Orientation Not on file Last Filed Vital Signs Vital Sign Reading Time Taken Comments Blood Pressure 116/62 06/06/2019 7:10 AM MOTOR TESTER Pulse 61 06/06/2019 7:10 AM MOTOR TESTER Temperature 36.1 C (96.9 F) 06/06/2019 7:10 AM MOTOR TESTER Respiratory Rate 20 06/06/2019 10:14 AM MOTOR TESTER Oxygen Saturation 99% 06/06/2019 7:10 AM MOTOR TESTER Inhaled Oxygen Concentration - - Weight 77.1 kg (170 lb) 06/06/2019 7:10 AM MOTOR TESTER Height 167.6 cm (5' 6) 06/06/2019 7:10 AM MOTOR TESTER Body Mass Index 27.44 06/06/2019 7:10 AM MOTOR TESTER Plan of Treatment Health Maintenance Due Date [...] topic Insurance MEDICAID - OUT OF STATE [facility] MEDICAID LIMITED BENEFIT - [place] B[place] WELLCARE
--- OUTSIDE RECORDS SUMMARY | 2024-11-16 11:47 | XMS_ITS | Encounter Summary ---
Author Organization [facility] Address [address] [place] [address] Phone Care Team Providers Care Welder Explosion Name Role Phone Yaw Sol MD Primary Care Provider [phone] Provider, Unknown Primary Care Provider Unavaila ble Provider, None Primary Care Provider Unavailabl e Provider, Unknown Unavailable Unavailable Reason for Visit * Reason Comments Medication Refill Encounter Details Date Type Department Care Team (Late st Contact Info) Description 07/02/2022 [facility]ill [facility] [address] [place] [phone] Yaw Sol MD [address]1 [place] [address] Medication Refill Social History Tobacco Use Types [...] Chey Crane RMA - 07/05/2022 9:19 AM ROOF PROMENADE TILE SETTER Mailed letter PROMENADE TILE SETTER * Telephone Encounter - Kristina Cotton RN - 07/02/2022 5:19 PM CST Needs OV with PCP PROMENADE TILE SETTER * Telephone Encounter - Kristina Cotton RN [...] LDL, HDLCHOLESTE, CHOLESTEROL, TRIGLYCRIDES, VLDL, CHDL, HDLNON PROMENADE TILE SETTER documented in this encounter Plan of Treatment [...] documented as of this encounter Care Teams Welder Explosion Relationship Specialty Start Date End Date Yaw Sol MD PCP - General Family Medicine 06/18/20 10/18/22 Provider, Unknown UNKNOWN PCP - General 10/23/22 04/10/23 Provider, None [place] PCP - General 04/11/23 Provider, Unknown UNKNOWN 04/11/23 documented as of this encounter
--- OUTSIDE RECORDS SUMMARY | 2024-11-16 11:47 | XMS_ITS | Clinical Summary ---
Author Organization [facility] Address [address] [address] Phone Care Team Providers Care Slasher Tender Helper Name Role Phone Provider, None Primary Care [...] Lnp-s, Pf, 3 0 Mcg/0.3 Ml Dose ([employer]) 06/05/2021 TDAP Vaccine 06/02/2020,01/02/2019,12/08/2016 Tuberculin Skin Test; [...] this topic Insurance MEDICAID [place] MEDICARE C [facility] C WELLCARE Advance Directives * Full Code (Latest Code Status on File) Date Activated Date Inactivated Comments 11/26/2020 10:26 AM 07/22/2021 4:56 AM Care Teams Slasher Tender Helper Relationship Specialty Start Date End Date Provider, None [place] PCP - General 04/11/23 Provider, Unknown UNKNOWN 04/11/23
--- OUTSIDE RECORDS SUMMARY | 2024-11-16 11:47 | XMS_ITS | Encounter Summary ---
Author Organization [facility] Address [address] [place] [address] Phone Care Team Providers Care Shipping Clerk/Admin Name Role Phone Yaw Sol MD Primary Care Provider [phone] Provider, Unknown Primary Care Provider Unavaila ble Provider, None Primary Care Provider Unavailabl e Provider, Unknown Unavailable Unavailable Lanie Whitaker Unavailable Unavailab le Reason for Visit * Reason Comments Medication Refill Encounter Details Date Type Department Care Team (Late st Contact Info) Description 11/27/2021 Refill [facility] - Family Medicine [facility] [address] [place] [phone] Darek Salamanca, WEAPONS SYSTEM INSTRUMENT MECHANIC, TEMPERATURE CONTROL INSPECTOR [address] [address] Medication Refill Social History Tobacco Use Types [...] documented as of this encounter Care Teams Shipping Clerk/Admin Relationship Specialty Start Date End Date Yaw Sol MD PCP - General Family Medicine 06/18/20 10/18/22 Provider, Unknown UNKNOWN PCP - General 10/23/22 04/10/23 Provider, None [place] PCP - General 04/11/23 Provider, Unknown UNKNOWN 04/11/23 Lanie Whitaker LSW [place] Securities Broker 01/26/21 12/17/21 documented as of this encounter
--- OUTSIDE RECORDS SUMMARY | 2024-11-16 11:47 | XMS_ITS | Encounter Summary ---
Author Organization [facility] Address [address] [place] [address] Phone Care Team Providers Care Avionics Electronics Technician Name Role Phone Yaw Sol MD Primary Care Provider [phone] Provider, Unknown Primary Care Provider Unavaila ble Provider, None Primary Care Provider Unavailabl e Provider, Unknown Unavailable Unavailable Reason for Visit * Reason Comments Medication Refill Encounter Details Date Type Department Care Team (Late st Contact Info) Description 07/31/2022 Refill [facility] [address]2 [place] [phone] Yaw Sol MD [address] [place] [address] Medication Refill Social History Tobacco Use Types [...] documented as of this encounter Care Teams Avionics Electronics Technician Relationship Specialty Start Date End Date Yaw Sol MD PCP - General Family Medicine 06/18/20 10/18/22 Provider, Unknown UNKNOWN PCP - General 10/23/22 04/10/23 Provider, None [place] PCP - General 04/11/23 Provider, Unknown UNKNOWN 04/11/23 documented as of this encounter
--- OUTSIDE RECORDS SUMMARY | 2024-11-16 11:47 | XMS_ITS | Encounter Summary ---
Author Organization [facility] Address [address] [place] [address] Phone Care Team Providers Care Basin Tender Name Role Phone Yaw Sol MD Primary Care Provider [phone] Provider, Unknown Primary Care Provider Unavaila ble Provider, None Primary Care Provider Unavailabl e Provider, Unknown Unavailable Unavailable Lanie Whitaker PARAMEDIC INSTRUCTOR Unavailable Unavailab le Reason for Visit * Reason Comments Medication Refill Encounter Details Date Type Department Care Team (Late st Contact Info) Description 10/28/2021 Refill [facility] - [facility] [address] [place] [phone] Yaw Sol MD [address] [place] [address] Medication Refill Social History Tobacco Use Types [...] Osifrah Spears 11/12/20 Office Visit Darek Salamanca, HOME THERAPY CLINICIAN, REEL WORKER [facility] Showing recent visits within past 365 days [...] Spears 11/12/20 Office Visit Darek Salamanca APRN, REEL WORKER [facility] Showing recent visits within past 365 [...] documented as of this encounter Care Teams Basin Tender Relationship Specialty Start Date End Date Yaw Sol MD PCP - General Family Medicine 06/18/20 10/18/22 Provider, Unknown UNKNOWN PCP - General 10/23/22 04/10/23 Provider, None [place] PCP - General 04/11/23 Provider, Unknown UNKNOWN 04/11/23 Lanie Whitaker LSW [place] Market Risk Manager 01/26/21 12/17/21 documented as of this encounter
--- OUTSIDE RECORDS SUMMARY | 2024-11-16 11:47 | XMS_ITS | Clinical Summary ---
Author Organization [facility] Address [address] [place] [address] Care Team Providers Care Seafood Clerk Name Role Phone Miscellaneous, Not In File [...] with motrin as needed Cerebrovascular accident (CVA) ([facility]/HCC) Assessment & Plan (10/14/2021 12:45 AM CDT): H/o L MCA CVA. Patient had expressive aphasia and right sided weakness from review of EMR. Unclear what residual deficits patient had. Patient also reports being admitted 1 month ago at [facility] for CVA. Will need to obtain records. [...] may need MRI to r/o new CVA. GRAY TENDER consulted. Will need to obtain records from patient's admission 1month ago at [place]. Immunizations Immunization Administration Dates Next Due Tdap 01/02/2019,12/08/2016 Surgical History Surgery Date Site/Laterality Comments JOINT REPLACEMENT Left knee BACK SURGERY Medical History Medical History Date Comments Arthritis COPD (chronic obstructive pulmonary disease) ( C) Stroke ([facility]) Social History Tobacco Use Types Packs/Day [...] on file Legal Sex Male 7:03 PM ACCOUNT INFORMATION CLERK Gender Identity Not on file Sexual Orientation [...] PELVIS W CONTRAST ED 05/24/2020 6:38 PM ACCOUNT INFORMATION CLERK from Last 3 Months or Most Recently Relevant to Health Maintenance Results * CT Abdomen Pelvis W Contrast (05/24/2020 6:38 PM ACCOUNT INFORMATION CLERK) Anatomical Region Laterality Modality Body N/A Computed Tomogra phy 05/24/2020 6:28 PM ACCOUNT INFORMATION CLERK Impressions 05/24/2020 6:52 PM ACCOUNT INFORMATION CLERK No acute inflammatory process is noted. No cholecystitis. Normal appendix. Diverticulosis without diverticulitis THIS IS AN ELECTRONICALLY VERIFIED FINAL REPORT 05/24/2020 6:48 PM - Electronically signed by Alvino Cruz M.D. NC: JESSIE Report ID: [id number] Reading Location: [id number] [facility] 05/24/2020 6:52 PM ACCOUNT INFORMATION CLERK [facility] Imaging Result Name: BENITO CISSE Ordering Phys: TRI GÓMEZ Age: 69 Date of : 1950 Accession Number: [id number] Date of Service: 05/24/2020 Gender: M EXAM [...] Procedure Note Alvino Cruz MD - 05/24/2020 [facility] Imaging Result Name: BENITO CISSE Ordering Phys: TRI GÓMEZ Age: 69 Date of : 1950 Accession Number: [id number] Date of Service: 05/24/2020 Gender: M EXAM [...] Alvino Cruz M.D. NC: JESSIE Report ID: [id number] Reading Location: [id number] Tri Gómez MD IMG CT PROCEDURES F inal Result from Last 3 Months or Most Recently Relevant to Health Maintenance Insurance IDSC WELLCARE MEDICARE HMO MEDICARE IDPA [facility] MED[facility]ARE HMO [facility] MEDICARE GENERIC RISK OTHER [facility] [place] ID[place] WELLCARE MEDICARE HMO Advance Directives For more information, please contact: [phone] * Full Code (Latest Code Status on [...] 11:22 AM 09/24/2018 5:51 PM Care Teams Seafood Clerk Relationship Specialty [place] [address] [place] [address] PCP - General Family Medicine 05/24/20 Miscellaneous, Not In File 08/20/18
--- OUTSIDE RECORDS SUMMARY | 2024-11-16 12:16 | XMS_ITS | Encounter Summary ---
Author Organization [facility] Address [address] [place] [address] Phone Care Team Providers Care Pipe Foreman Name Role Phone Yaw Sol MD Primary Care Provider [phone] Provider, Unknown Primary Care Provider Unavaila ble Provider, None Primary Care Provider Unavailabl e Provider, Unknown Unavailable Unavailable Reason for Visit * Reason Comments Medication Refill Encounter Details Date Type Department Care Team (Late st Contact Info) Description 07/31/2022 Refill [facility] [address] [place] [phone] Yaw Sol MD [address] [place] [address] Medication Refill Social History Tobacco Use Types [...] documented as of this encounter Care Teams Pipe Foreman Relationship Specialty Start Date End Date Yaw Sol MD PCP - General Family Medicine 06/18/20 10/18/22 Provider, Unknown UNKNOWN PCP - General 10/23/22 04/10/23 Provider, None [place] PCP - General 04/11/23 Provider, Unknown UNKNOWN 04/11/23 documented as of this encounter
--- OUTSIDE RECORDS SUMMARY | 2024-11-16 12:16 | XMS_ITS | Clinical Summary ---
Author Organization [facility] Address [address] [place] [address] Care Team Providers Care Materials Specialist Name Role Phone Miscellaneous, Not In File [...] motrin as needed Cerebrovascular accident (CVA) ([facility]/HCC) Assessment & Plan (10/14/2021 12:45 AM CDT): H/o L MCA CVA. Patient had expressive aphasia and right sided weakness from review of EMR. Unclear what residual deficits patient had. Patient also reports being admitted 1 month ago at [place] for CVA. Will need to obtain records. [...] may need MRI to r/o new CVA. MINK SLICER consulted. Will need to obtain records from patient's admission 1month ago at [place]. Immunizations Immunization Administration Dates Next Due Tdap 01/02/2019,12/08/2016 Surgical History Surgery Date Site/Laterality Comments JOINT REPLACEMENT Left knee BACK SURGERY Medical History Medical History Date Comments Arthritis COPD (chronic obstructive pulmonary disease) ( C) Stroke ([facility]) Social History Tobacco Use Types Packs/Day [...] on file Legal Sex Male 7:03 PM MANAGER ORDER Gender Identity Not on file Sexual Orientation [...] PELVIS W CONTRAST ED 05/24/2020 6:38 PM MANAGER ORDER from Last 3 Months or Most Recently Relevant to Health Maintenance Results * CT Abdomen Pelvis W Contrast (05/24/2020 6:38 PM MANAGER ORDER) Anatomical Region Laterality Modality Body N/A Computed Tomogra phy 05/24/2020 6:28 PM MANAGER ORDER Impressions 05/24/2020 6:52 PM MANAGER ORDER No acute inflammatory process is noted. No cholecystitis. Normal appendix. Diverticulosis without diverticulitis THIS IS AN ELECTRONICALLY VERIFIED FINAL REPORT 05/24/2020 6:48 PM - Electronically signed by Alvino Cruz M.D. NC: JESSIE Report ID: [id number] Reading Location: [id number] [facility] 05/24/2020 6:52 PM MANAGER ORDER [facility] Imaging Result Name: BENITO CISSE Ordering Phys: TRI GÓMEZ Age: 69 Date of : 1950 Accession Number: [id number] Date of Service: 05/24/2020 Gender: M EXAM [...] Procedure Note Alvino Cruz MD - 05/24/2020 [facility] Imaging Result Name: BENITO CISSE Ordering Phys: TRI GÓMEZ Age: 69 Date of : 1950 Accession Number: [id number] Date of Service: 05/24/2020 Gender: M EXAM [...] Alvino Cruz M.D. NC: JESSIE Report ID: [id number] Reading Location: [id number] Tri Gómez MD IMG CT PROCEDURES F inal Result from Last 3 Months or Most Recently Relevant to Health Maintenance Insurance IDPR WELLCARE MEDICARE HMO MEDICARE IDPA [facility] MEDICARE HMO [facility] MEDICARE GENERIC RISK OTHER [facility] [place] IDPA WELLCARE MEDICARE HMO Advance Directives For more information, please contact: [phone] * Full Code (Latest Code Status on [...] 11:22 AM 09/24/2018 5:51 PM Care Teams Materials Specialist Relationship Specialty [place] [address] [place] [address] PCP - General Family Medicine 05/24/20 Miscellaneous, Not In File 08/20/18
--- OUTSIDE RECORDS SUMMARY | 2024-11-16 12:16 | XMS_ITS | Encounter Summary ---
Author Organization [facility] Address [address] [place] [address] Phone Care Team Providers Care Clinical Practice Consultant Name Role Phone Yaw Sol MD Primary Care Provider [phone] Provider, Unknown Primary Care Provider Unavaila ble Provider, None Primary Care Provider Unavailabl e Provider, Unknown Unavailable Unavailable Reason for Visit * Reason Comments Medication Refill Encounter Details Date Type Department Care Team (Late st Contact Info) Description 07/02/2022 Refill [facility] [address] [place] [phone] Yaw Sol MD [address] [place] [address] Medication Refill Social History Tobacco Use Types [...] Chey Crane RMA - 07/05/2022 9:19 AM CLICKING MACHINE OPERATOR Mailed letter KING MACHINE OPERATOR * Telephone Encounter - Kristina Cotton RN - 07/02/2022 5:19 PM CST Needs OV with PCP KING MACHINE OPERATOR * Telephone Encounter - Kristina Cotton RN [...] LDL, HDLCHOLESTE, CHOLESTEROL, TRIGLYCRIDES, VLDL, CHDL, HDLNON KING MACHINE OPERATOR documented in this encounter Plan of Treatment [...] documented as of this encounter Care Teams Clinical Practice Consultant Relationship Specialty Start Date End Date Yaw Sol MD PCP - General Family Medicine 06/18/20 10/18/22 Provider, Unknown UNKNOWN PCP - General 10/23/22 04/10/23 Provider, None [place] PCP - General 04/11/23 Provider, Unknown UNKNOWN 04/11/23 documented as of this encounter
--- OUTSIDE RECORDS SUMMARY | 2024-11-16 12:16 | XMS_ITS | Encounter Summary ---
Author Organization [facility] Address [address] [place] [address] Phone Care Team Providers Care Office Mail Clerk Name Role Phone Yaw Sol MD Primary Care Provider [phone] Provider, Unknown Primary Care Provider Unavaila ble Provider, None Primary Care Provider Unavailabl e Provider, Unknown Unavailable Unavailable Lanie Whitaker HOISTING LABORER Unavailable Unavailab le Reason for Visit * Reason Comments Medication Refill Encounter Details Date Type Department Care Team (Late st Contact Info) Description 10/28/2021 Refill [facility] - Family Medicine [facility] [address] [place] [phone] Yaw Sol MD [address] [place] [address] Medication Refill Social History Tobacco Use Types [...] Osifrah Spears 11/12/20 Office Visit Darek Salamanca, TRUCK TRAILER FINAL INSPECTOR, EDUCATIONAL ASSISTANT [facility] visits within past [...] Spears 11/12/20 Office Visit Darek Salamanca APRN, EDUCATIONAL ASSISTANT [facility] Showing recent visits within past 365 [...] documented as of this encounter Care Teams Office Mail Clerk Relationship Specialty Start Date End Date Yaw Sol MD PCP - General Family Medicine 06/18/20 10/18/22 Provider, Unknown UNKNOWN PCP - General 10/23/22 04/10/23 Provider, None [place] PCP - General 04/11/23 Provider, Unknown UNKNOWN 04/11/23 Lanie Whitaker LSW [place] Microfilm Technician 01/26/21 12/17/21 documented as of this encounter
--- OUTSIDE RECORDS SUMMARY | 2024-11-16 12:16 | XMS_ITS | Encounter Summary ---
Author Organization [facility] Address [address] [place] [address] Phone Care Team Providers Care Web Producer Name Role Phone Yaw Sol MD Primary Care Provider [phone] Provider, Unknown Primary Care Provider Unavaila ble Provider, None Primary Care Provider Unavailabl e Provider, Unknown Unavailable Unavailable Lanie Whitaker Unavailable Unavailab le Reason for Visit * Reason Comments Medication Refill Encounter Details Date Type Department Care Team (Late st Contact Info) Description 11/27/2021 Refill [facility] - Family Medicine [facility] [address] [place] [phone] Darek Salamanca, CASE BRIEFER, HAND ENDBAND CUTTER [address] [address] Medication Refill Social History Tobacco Use Types [...] documented as of this encounter Care Teams Web Producer Relationship Specialty Start Date End Date Yaw Sol MD PCP - General Family Medicine 06/18/20 10/18/22 Provider, Unknown UNKNOWN PCP - General 10/23/22 04/10/23 Provider, None [place] PCP - General 04/11/23 Provider, Unknown UNKNOWN 04/11/23 Lanie Whitaker LSW [place] Personal Property Appraiser 01/26/21 12/17/21 documented as of this encounter
--- OUTSIDE RECORDS SUMMARY | 2024-11-16 12:16 | XMS_ITS | Clinical Summary ---
Author Organization [facility] Address [address] [place] [address] Care Team Providers Care Director Of Hotel Operations Name Role Phone Unavailable Primary Care Provider Unavailabl e Source Comments [facility],non-owned Affiliates and Associated Physician Practices is amultiple site organization consisting of ambulatory clinics and hospital sitesin [place], [place], [place] and [place]. This disclosure is being madepursuant to the Care Everywhere program and may not contain all information available regarding this patient. Last updated 18.[facility] [employer] Allergies No known active allergies Medications * [...] on file Legal Sex Male 4:51 PM AUTOMOBILE GLASS TECHNICIAN Gender Identity Not on file Sexual Orientation Not on file Last Filed Vital Signs Vital Sign Reading Time Taken Comments Blood Pressure 116/62 06/06/2019 7:10 AM AUTOMOBILE GLASS TECHNICIAN Pulse 61 06/06/2019 7:10 AM AUTOMOBILE GLASS TECHNICIAN Temperature 36.1 C (96.9 F) 06/06/2019 7:10 AM AUTOMOBILE GLASS TECHNICIAN Respiratory Rate 20 06/06/2019 10:14 AM AUTOMOBILE GLASS TECHNICIAN Oxygen Saturation 99% 06/06/2019 7:10 AM AUTOMOBILE GLASS TECHNICIAN Inhaled Oxygen Concentration - - Weight 77.1 kg (170 lb) 06/06/2019 7:10 AM AUTOMOBILE GLASS TECHNICIAN Height 167.6 cm (5' 6) 06/06/2019 7:10 AM AUTOMOBILE GLASS TECHNICIAN Body Mass Index 27.44 06/06/2019 7:10 AM AUTOMOBILE GLASS TECHNICIAN Plan of Treatment Health Maintenance Due Date [...] topic Insurance MEDICAID - OUT OF STATE [facility] [place] [address] MEDICAID [place] BENEFIT - [place]ARE
--- OUTSIDE RECORDS SUMMARY | 2024-11-16 12:16 | XMS_ITS | Encounter Summary ---
Author Organization [facility] Address [address] [place] [address] Phone Care Team Providers Care Grain Ii Farmworker Name Role Phone Yaw Sol MD Primary Care Provider [phone] Provider, Unknown Primary Care Provider Unavaila ble Provider, None Primary Care Provider Unavailabl e Provider, Unknown Unavailable Unavailable Reason for Visit * Reason Comments Medication Refill Encounter Details Date Type Department Care Team (Late st Contact Info) Description 08/27/2022 Refill [facility] [address] [place] [phone] Yaw Sol MD [address] [place] [address] Medication Refill Social History Tobacco Use Types [...] Provider Dept 09/10/22 Appointment Yaw Sol MD [facility] Showing future appointments within next 90 [...] documented as of this encounter Care Teams Grain Ii Farmworker Relationship Specialty Start Date End Date Yaw Sol MD PCP - General Family Medicine 06/18/20 10/18/22 Provider, Unknown UNKNOWN PCP - General 10/23/22 04/10/23 Provider, None [place] PCP - General 04/11/23 Provider, Unknown UNKNOWN 04/11/23 documented as of this encounter
--- OUTSIDE RECORDS SUMMARY | 2024-11-16 12:16 | XMS_ITS | Referral Summary ---
Author Organization [facility] Address [address] [place] [address] Care Team Providers Care Endorsement Clerk Name Role Phone Miscellaneous, Not In [...] with motrin as needed Cerebrovascular accident (CVA) ([facility]) Assessment & Plan (10/14/2021 12:45 AM CDT): H/o L MCA CVA. Patient had expressive aphasia and right sided weakness from review of EMR. Unclear what residual deficits patient had. Patient also reports being admitted 1 month ago at [place] for CVA. Will need to obtain records. [...] may need MRI to r/o new CVA. RESEARCH ADMINISTRATOR consulted. Will need to obtain records from patient's admission 1month ago at [place]. Immunizations Immunization Administration Dates Next Due Tdap [...] on file Legal Sex Male 7:03 PM CLOTH FINISHER Gender Identity Not on file Sexual Orientation [...] PELVIS W CONTRAST ED 05/24/2020 6:38 PM CLOTH FINISHER from Last 3 Months or Most Recently Relevant to Health Maintenance Results * CT Abdomen Pelvis W Contrast (05/24/2020 6:38 PM CLOTH FINISHER) Anatomical Region Laterality Modality Body N/A Computed Tomogra phy 05/24/2020 6:28 PM CLOTH FINISHER Impressions 05/24/2020 6:52 PM CLOTH FINISHER No acute inflammatory process is noted. No cholecystitis. Normal appendix. Diverticulosis without diverticulitis THIS IS AN ELECTRONICALLY VERIFIED FINAL REPORT 05/24/2020 6:48 PM - Electronically signed by Alvino Cruz M.D. NC: JESSIE Report ID: [id number] Reading Location: [id number] [facility] 05/24/2020 6:52 PM CLOTH FINISHER [facility] Imaging Result Name: BENITO CISSE Ordering Phys: TRI GÓMEZ Age: 69 Date of : 1950 Accession Number: [id number] Date of Service: 05/24/2020 Gender: M EXAM [...] Procedure Note Alvino Cruz MD - 05/24/2020 [facility] Imaging Result Name: BENITO CISSE Ordering Phys: TRI GÓMEZ Age: 69 Date of : 1950 Accession Number: [id number] Date of Service: 05/24/2020 Gender: M EXAM [...] Alvino Cruz M.D. NC: JESSIE Report ID: [id number] Reading Location: [place] [address] Tri Gómez MD IMG CT PROCEDURES F inal Result from Last 3 Months or Most Recently Relevant to Health Maintenance Insurance [employer] MEDICARE HMO MEDICARE [facility] MEDICARE HMO MANAGED MEDICARE GENERIC RISK OTHER [facility] Member Subscriber Plan / Payer (Ef fective 2021-Present) Name:Benito Cisse Member ID:[id number] Relation to Subscriber:Self Name:Benito Cisse Subscriber ID:[id number] Payer ID:[id number] (NAIC) Group ID:Not on file Type:MEDICARE RISK OTHER Address: [facility] ATTN: CLAIMS [address] [place] [id number] [place] [address] WELLCARE MEDICARE HMO Advance Directives For more information, please contact: [phone] * Full Code (Latest Code Status on [...] 11:22 AM 09/24/2018 5:51 PM Care Teams Endorsement Clerk Relationship Specialty [place] [id number] [place] [address] PCP - General Family Medicine 05/24/20 Miscellaneous, Not In File 08/20/18
--- OUTSIDE RECORDS SUMMARY | 2024-11-16 12:16 | XMS_ITS | Clinical Summary ---
Author Organization [facility] Address [address] [address] Phone Care Team Providers Care Bulb Grader Name Role Phone Provider, None Primary Care [...] Lnp-s, Pf, 3 0 Mcg/0.3 Ml Dose ([facility]) 06/05/2021 TDAP Vaccine 06/02/2020,01/02/2019,12/08/2016 Tuberculin Skin Test; [...] this topic Insurance MEDICAID [place] MEDICARE C [facility] C WELLCARE Advance Directives * Full Code (Latest Code Status on File) Date Activated Date Inactivated Comments 11/26/2020 10:26 AM 07/22/2021 4:56 AM Care Teams Bulb Grader Relationship Specialty Start Date End Date Provider, None [place] PCP - General 04/11/23 Provider, Unknown UNKNOWN 04/11/23
--- OUTSIDE RECORDS SUMMARY | 2024-11-16 12:16 | XMS_ITS | Encounter Summary ---
Author Organization [facility] Address [address] [place] [address] Phone Care Team Providers Care Bilingual Inside Sales Representative Name Role Phone Yaw Sol MD Primary Care Provider [phone] Provider, Unknown Primary Care Provider Unavaila ble Provider, None Primary Care Provider Unavailabl e Provider, Unknown Unavailable Unavailable Reason for Visit * Reason Comments Medication Refill Encounter Details Date Type Department Care Team (Late st Contact Info) Description 06/25/2022 [facility]ill [facility] [address] [place] [id number] Yaw Sol MD [address] [place] [address] Medication Refill Social History Tobacco Use Types [...] Na Bustamante RN - 06/28/2022 8:21 AM CITY ENGINEER Patient needs appointment. Medication failed the protocol, [...] 90 days and meeting all other requirements ENGINEER documented in this encounter Plan of [...] documented as of this encounter Care Teams Bilingual Inside Sales Representative Relationship Specialty Start Date End Date Yaw Sol MD PCP - General Family Medicine 06/18/20 10/18/22 Provider, Unknown UNKNOWN PCP - General 10/23/22 04/10/23 Provider, None [place] PCP - General 04/11/23 Provider, Unknown UNKNOWN 04/11/23 documented as of this encounter
--- NOTE | 2024-11-16 12:48 | ED.GENADULT ---
HPI - General Adult General Chief complaint: Unspecified Stated complaint: requesting eye gtts Time Seen by Provider: 11/16/24 11:59 History of Present Illness HPI narrative: This 73-year-old male who was seen here yesterday for eye irritation and was discharged with Ocuflox. Patient lost the Ocuflox and is requesting another. Ocuflox was ordered but the patient left before I was able to interview him. Related Data Home Medications ?Medication ?Instructions ?Recorded ?Confirmed ?Last Taken ?Type naproxen 500 mg tablet 500 mg PO BID PRN Pain (Scale 12/01/23 12/01/23 Unknown History Score 1-3) Allergies Allergy/AdvReac Type Severity Reaction Status Date / Time No Known Allergies Allergy Verified 11/08/24 19:40 PMFSH Past Medical History Medical History Cocaine abuse Tobacco abuse Normocytic anemia History of depression History of anxiety History of CHF (congestive heart failure) Arthritis Surgical History Surgical History History of left knee replacement Social History Social History Smoking packs per day: 1 Smoking cigarettes per day: 20.0 Smoking status: Current every day smoker Alcohol intake: never Substance use: current Substance use type: crack/cocaine Last use: POSITIVE LABS ON ADMISSION Do You Feel Safe in your Home?: Yes Lack of Transportation: YES Lack of Food: Sometimes True Current Housing: I Do Not Have Housing Concerned About Future Housing: YES Difficulty Paying Gas/Electric Bills: YES Difficulty Paying for Meds: YES Currently Unemployed: YES Education: Don't Know Difficulty w/ Childcare or Family Care: No Gender identity (if verbalized by the patient): Male Spiritual care concerns: No Discharge Plan Discharge Clinical Impression: Eye irritation Patient Disposition: Left Without Being Sn Triaged Patient Language: Georgian Prescriptions: No Action naproxen 500 mg tablet 500 mg PO BID PRN (Reason: Pain (Scale Score 1-3)) amoxicillin-pot clavulanate 875-125 mg tablet 1 tablet PO Q12H Qty: 14 0RF prednisone 20 mg tablet 40 mg PO DAILY Qty: 10 0RF albuterol sulfate 90 mcg/actuation HFA aerosol inhaler 1 inh inhalation QID PRN (Reason: shortness of breath or wheezing) Qty: 6.7 0RF lidocaine 5 % adhesive patch,medicated 1 patch topical DAILY Qty: 15 0RF Rx Instructions: leave on most painful area for up to 12 hrs naproxen 500 mg tablet 500 mg PO BID PRN (Reason: pain) Qty: 20 0RF azithromycin 250 mg tablet 250 mg PO DAILY 4 Days Qty: 4 0RF Rx Instructions: start on day 2 of therapy prednisone 20 mg tablet 40 mg PO DAILY 4 Days Qty: 8 0RF albuterol sulfate 90 mcg/actuation HFA aerosol inhaler 2 puff inhalation QID PRN (Reason: shortness of breath or wheezing) Qty: 8.5 0RF amoxicillin 500 mg capsule 1,000 mg PO Q8H 5 Days Qty: 30 0RF azithromycin 250 mg tablet See Rx Instructions .ROUTE .COMPLEX Qty: 6 0RF Rx Instructions: For 250 mg dose pack: take 500 mg today (day 1), then 250 mg for 4 days (days 2-5) Follow-up/Referrals: PHYSICIAN,SALES LEDGER CLERK [Primary Care Provider] -
--- NOTE | 2024-11-16 12:55 | PC.NURSE ---
medication not in the pyxis, waiting for the medication to be sent up from pharmacy
[2024-11-16] MEDS: OFLOXACIN 0.3% OPHTH SOLN 5 ML BTL 1 DROP EACH EYE (13:01)
--- NOTE | 2024-11-16 13:09 | PC.NURSE ---
Pt seen exiting ER with steady gait
--- NOTE | 2024-11-16 13:20 | PC.NURSE ---
Patient was given eye drops, and educated that we were waiting for the doctor and discharge paperwork and he could wait in his room, patient was seen by cement worker leaving the building.
== END 2024-11-16 13:30 | disposition left against medical advice (07) ==
PROVIDERS: Emergency Provider Emergency Medicine
DX: H57.89 Other specified disorders of eye and adnexa (principal)
CPT/HCPCS: 99199; A9270

== ENCOUNTER 2024-12-19 23:38 | Emergency (ER) | payer MEDICARE, MEDICAID, SELFPAY ==
--- NOTE | ~2024-12-19 | XR_ITS ---
Left Knee Technique: AP, lateral, and sunrise views were obtained. Clinical History: Pain Findings: No fracture or dislocation is seen. Osseous alignment is anatomic. Left knee arthroplasty in place. Soft tissues are unremarkable. No joint effusion is seen. Impression: No acute abnormality. Left knee arthroplasty. Reviewed, dictated and finalized at location . Impression: No acute abnormality. Left knee arthroplasty.
--- NOTE | ~2024-12-19 | XR_ITS ---
Right Knee Technique: AP, lateral, and sunrise views were obtained. Clinical History: Pain Findings: No fracture or dislocation is seen. Osseous alignment is anatomic. Severe tricompartmental degenerative changes present. There is remodeling and irregularity of the articular surfaces of the lateral femoral condyle and lateral tibial plateau in particular. There is extensive osteophyte formation throughout the knee. Soft tissues are unremarkable. No joint effusion is seen. Impression: Severe tricompartment osteoarthritis, as detailed above. Reviewed, dictated and finalized at location M. Impression: Severe tricompartment osteoarthritis, as detailed above.
[2024-12-19 23:42] VITALS: BP 131/72; PULSE 70; RESP 18; TEMP 36.9; O2SAT 100
--- NOTE | 2024-12-20 00:10 | ED_ITS ---
HPI - Extremity Problem General Chief complaint: Extremity Problem,Nontraumatic Stated complaint: bilateral leg pain/swelling Time Seen by Provider: 12/19/24 23:42 History of Present Illness HPI Narrative: 74 y/o M with a PMhx of substance abuse, CVA with residual right-sided deficits patient presents to emergency department for bilateral knee pain for the past day. Patient denies any injury or trauma. He states he has been having pain in both of his knees worse with ambulating. He notes swelling to his bilateral knees as well. He denies fever. Per chart review patient has had chronic knee pain and was recently seen in our ED on 10/09/2024 for acute on chronic right knee pain. X-rays at that time showed no acute osseous abnormality, severe osteoarthritic changes. Related Data Home Medications ?Medication ?Instructions ?Recorded ?Confirmed ?Last Taken ?Type naproxen 500 mg tablet 500 mg PO BID PRN Pain (Scal e 12/01/23 12/01/23 Unknown History Score 1-3) Allergies Allergy/AdvReac Type Severity Reaction Status Date / Time No Known Allergies Allergy Verified 12/19/24 23:39 Review of Systems Review of Systems: All systems reviewed & are unremarkable except as noted in HPI and below PMFSH Past Medical History Medical History Cocaine abuse Tobacco abuse Normocytic anemia History of depression History of anxiety History of CHF (congestive heart failure) Arthritis Surgical History Surgical History History of left knee replacement Social History Social History Smoking packs per day: 1 Smoking cigarettes per day: 20.0 Smoking status: Current every day smoker Alcohol intake: never Substance use: current Substance use type: crack/cocaine Last use: POSITIVE LABS ON ADMISSION Do You Feel Safe in your Home?: Yes Lack of Transportation: YES Lack of Food: Sometimes True Current Housing: I Do Not Have Housing Concerned About Future Housing: YES Difficulty Paying Gas/Electric Bills: YES Difficulty Paying for Meds: YES Currently Unemployed: YES Education: Don't Know Difficulty w/ Childcare or Family Care: No Gender identity (if verbalized by the patient): Male Spiritual care concerns: No Exam Narrative: GENERAL: Well-appearing, well-nourished, and in no acute distress. HEAD: Normocephalic, atraumatic. ENT: Nares clear, no rhinorrhea or epistaxis. Mucous membranes moist. NECK: Supple. CHEST: Clear to auscultation. No respiratory distress. HEART: Regular rate and rhythm. No murmur heard. Normal peripheral pulses. EXTREMITIES: Tenderness to the bilateral proximal tibia is on palpation in medial joint lines. Chronic valgus deformity to the right knee, otherwise no acute deformities bilaterally. No warmth or erythema. Mild edema bilaterally. Patient has full active and passive range of motion of knees and hips. DP pulses 2+. Sensation intact. Extremities are warm and dry. SKIN: Warm, dry, no rash. NEURO: No focal deficits. Alert and oriented x3 Course Vital Signs Vital signs: Vital Signs Temperature 98.5 F 12/19/24 23:42 Pulse Rate 70 12/19/24 23:42 Respiratory Rate 18 12/19/24 23:42 Blood Pressure 131/72 12/19/24 23:42 Pulse Oximetry 100 12/19/24 23:42 Oxygen Delivery Room Air 12/19/24 23:42 Temperature 98.5 F 12/19/24 23:42 Pulse Rate 70 12/19/24 23:42 Respiratory Rate 18 12/19/24 23:42 Blood Pressure 131/72 12/19/24 23:42 Pulse Oximetry 100 12/19/24 23:42 Oxygen Delivery Room Air 12/19/24 23:42 MDM - Extremity (Nontraumatic) MDM Narrative Medical decision making narrative: 74-year-old male presents emergency department for atraumatic bilateral knee pain worsening over the past day. Triage vitals are stable. Exam is significant for the above. Patient is neurovascularly intact. Patient given Tylenol for pain control. X-ray the right knee shows no acute fracture dislocation, diffuse osseous demineralization and severe tricompartmental osteoarthritis with extensive osteophytic spurring of the patellofemoral compartment. X-ray of the left knee shows a left knee arthroplasty with no periprosthetic fracture, loosening or dislocation. There is patellar resurfacing. Patient was given Tylenol and updated on results. Suspect pain is due to osteoarthritis. Patient instructed to take Tylenol, RICE and follow-up with his PCP. Discussed strict ED return precautions. Patient is agreeable with the plan verbalized understanding. Discharged in stable condition. Discharge Plan Discharge Clinical Impression: Bilateral knee pain Qualifiers: Chronicity: chronic Qualified Code(s): M25.561 - Pain in right knee Knee osteoarthritis Qualifiers: Osteoarthritis type: unspecified Laterality: right Qualified Code(s): M17.11 - Unilateral primary osteoarthritis, right knee Patient Disposition: Home Condition: Stable Instructions: Antibiotic Form, Knee Pain (ED) Additional Instructions: Please rest, ice, elevate and keep her knees compressed. Follow-up with your primary care provider. Return to the emergency department if you develop a fever, significantly worsening pain or other concerning symptoms. Patient Language: Tamazight Prescriptions: New acetaminophen 500 mg capsule 500 mg PO Q6H PRN (Reason: pain) Qty: 14 0RF No Action naproxen 500 mg tablet 500 mg PO BID PRN (Reason: Pain (Scale Score 1-3)) amoxicillin-pot clavulanate 875-125 mg tablet 1 tablet PO Q12H Qty: 14 0RF prednisone 20 mg tablet 40 mg PO DAILY Qty: 10 0RF albuterol sulfate 90 mcg/actuation HFA aerosol inhaler 1 inh inhalation QID PRN (Reason: shortness of breath or wheezing) Qty: 6.7 0RF lidocaine 5 % adhesive patch,medicated 1 patch topical DAILY Qty: 15 0RF Rx Instructions: leave on most painful area for up to 12 hrs naproxen 500 mg tablet 500 mg PO BID PRN (Reason: pain) Qty: 20 0RF azithromycin 250 mg tablet 250 mg PO DAILY 4 Days Qty: 4 0RF Rx Instructions: start on day 2 of therapy prednisone 20 mg tablet 40 mg PO DAILY 4 Days Qty: 8 0RF albuterol sulfate 90 mcg/actuation HFA aerosol inhaler 2 puff inhalation QID PRN (Reason: shortness of breath or wheezing) Qty: 8.5 0RF amoxicillin 500 mg capsule 1,000 mg PO Q8H 5 Days Qty: 30 0RF azithromycin 250 mg tablet See Rx Instructions .ROUTE .COMPLEX Qty: 6 0RF Rx Instructions: For 250 mg dose pack: take 500 mg today (day 1), then 250 mg for 4 days (days 2-5) Follow-up/Referrals: Enrrique Sumner MD [Physician, Family Practice] PHYSICIAN,DIRECTOR BIOMEDICAL ENGINEERING [Primary Care Provider, Internal Medicine]
[2024-12-20] MEDS: ACETAMINOPHEN 500 MG TABLET 1000 MG PO (00:15)
== END 2024-12-20 03:20 | disposition home or self-care (01) ==
PROVIDERS: Emergency Provider Physician Assistant
DX: M25.562 Pain in left knee (principal); M17.11 Unilateral primary osteoarthritis, right knee; G89.29 Other chronic pain; I50.9 Heart failure, unspecified; I69.90 Unspecified sequelae of unspecified cerebrovascular disease; F41.9 Anxiety disorder, unspecified; F32.A Depression, unspecified; F17.210 Nicotine dependence, cigarettes, uncomplicated; Z86.2 Personal history of diseases of the blood and blood-forming organs and certain disorders involving the immune mechanism; Z96.652 Presence of left artificial knee joint
CPT/HCPCS: 73564; 99284; A9270

== ENCOUNTER 2025-01-28 22:53 | Emergency (ER) | payer MEDICARE, MEDICAID, SELFPAY ==
[2025-01-28] VITALS (7 sets, daily range): BP systolic 109–120; BP diastolic 46–68; PULSE 66–80; RESP 17–20; TEMP 36.6; O2SAT 97–100
--- NOTE | ~2025-01-28 | XR_ITS ---
Examination: XR chest 2V Clinical History: uri Comparison: 09/17/2024 Technique: PA and Lateral Findings: Cardiomediastinal silhouette normal size and configuration. Mild right basilar atelectasis. Lungs otherwise clear. No acute bony abnormality. IMPRESSION: 1. No acute cardiopulmonary findings. Reviewed, dictated and finalized at location R.
--- OUTSIDE RECORDS SUMMARY | 2025-01-28 22:55 | XMS_ITS | Clinical Summary ---
Author Organization [facility] Address [address] [place] [address] Care Team Providers Care Housetrailer Servicer Name Role Phone Unavailable Primary Care Provider Unavailabl e Source Comments [facility],non-owned Affiliates and Associated Physician Practices is amultiple site organization consisting of ambulatory clinics and hospital sitesin [place], [place], [place]. This disclosure is being madepursuant to the Care Everywhere program and may not contain all information available regarding this patient. Last updated 18.[facility] BR[facility] 1bib Allergies No known active allergies Medications * [...] on file Legal Sex Male 4:51 PM DIRECTOR CONSUMER Gender Identity Not on file Sexual Orientation Not on file Last Filed Vital Signs Vital Sign Reading Time Taken Comments Blood Pressure 116/62 06/06/2019 7:10 AM DIRECTOR CONSUMER Pulse 61 06/06/2019 7:10 AM DIRECTOR CONSUMER Temperature 36.1 C (96.9 F) 06/06/2019 7:10 AM DIRECTOR CONSUMER Respiratory Rate 20 06/06/2019 10:14 AM DIRECTOR CONSUMER Oxygen Saturation 99% 06/06/2019 7:10 AM DIRECTOR CONSUMER Inhaled Oxygen Concentration - - Weight 77.1 kg (170 lb) 06/06/2019 7:10 AM DIRECTOR CONSUMER Height 167.6 cm (5' 6) 06/06/2019 7:10 AM DIRECTOR CONSUMER Body Mass Index 27.44 06/06/2019 7:10 AM DIRECTOR CONSUMER Plan of Treatment Health Maintenance Due Date [...] AAA SCREENING 12/13/2016 SCREENING FOR DIABETES 06/06/2019 DEPRESSION SCREENING 05/02/2024 COVID-19 VACCINE (1 - 2023-2 5 season) 2024 INFLUENZA VACCINE (#1) 2024 Respiratory Syncytial Virus [...]
--- OUTSIDE RECORDS SUMMARY | 2025-01-28 22:55 | XMS_ITS | Encounter Summary ---
Author Organization [facility] Address [address] [place] [address] Phone Care Team Providers Care Hack Driver Name Role Phone Yaw Sol MD Primary Care Provider [phone] Provider, Unknown Primary Care Provider Unavaila ble Provider, None Primary Care Provider Unavailabl e Provider, Unknown Unavailable Unavailable Reason for Visit * Reason Comments Medication Refill Encounter Details Date Type Department Care Team (Late st Contact Info) Description 07/02/2022 Refill [facility] [address] [place] [id number] Yaw Sol MD [address] [place] [address] Medication Refill Social History Tobacco Use Types [...] Chey Crane RMA - 07/05/2022 9:19 AM OUTSIDE DELIVERER Mailed letter IDE DELIVERER * Telephone Encounter - Kristina Cotton RN - 07/02/2022 5:19 PM CST Needs OV with PCP IDE DELIVERER * Telephone Encounter - Kristina Cotton RN [...] LDL, HDLCHOLESTE, CHOLESTEROL, TRIGLYCRIDES, VLDL, CHDL, HDLNON IDE DELIVERER documented in this encounter Plan of Treatment [...] documented as of this encounter Care Teams Hack Driver Relationship Specialty Start Date End Date Yaw Sol MD PCP - General Family Medicine 06/18/20 10/18/22 Provider, Unknown UNKNOWN PCP - General 10/23/22 04/10/23 Provider, None [place] PCP - General 04/11/23 Provider, Unknown UNKNOWN 04/11/23 documented as of this encounter
--- OUTSIDE RECORDS SUMMARY | 2025-01-28 22:55 | XMS_ITS | Encounter Summary ---
Author Organization [facility] Address [address] [place] [address] Phone Care Team Providers Care Helpdesk Manager Name Role Phone Yaw Sol MD Primary Care Provider [phone] Provider, Unknown Primary Care Provider Unavaila ble Provider, None Primary Care Provider Unavailabl e Provider, Unknown Unavailable Unavailable Reason for Visit * Reason Comments Medication Refill Encounter Details Date Type Department Care Team (Late st Contact Info) Description 08/27/2022 Refill [facility] [address] [place] [phone] Yaw Sol MD [address] [place] [address] Medication Refill Social History Tobacco Use Types [...] Provider Dept 09/10/22 Appointment Yaw Sol MD [facility] Showing future appointments within next [...] documented as of this encounter Care Teams Helpdesk Manager Relationship Specialty Start Date End Date Yaw Sol MD PCP - General Family Medicine 06/18/20 10/18/22 Provider, Unknown UNKNOWN PCP - General 10/23/22 04/10/23 Provider, None [place] PCP - General 04/11/23 Provider, Unknown UNKNOWN 04/11/23 documented as of this encounter
--- OUTSIDE RECORDS SUMMARY | 2025-01-28 22:55 | XMS_ITS | Encounter Summary ---
Author Organization [facility] Address [address] [place] [address] Phone Care Team Providers Care Belt Measurer Name Role Phone Yaw Sol MD Primary Care Provider [phone] Provider, Unknown Primary Care Provider Unavaila ble Provider, None Primary Care Provider Unavailabl e Provider, Unknown Unavailable Unavailable Lanie Whitaker AIRFRAME DESIGN ENGINEER Unavailable Unavailab le Reason for Visit * Reason Comments Medication Refill Encounter Details Date Type Department Care Team (Late st Contact Info) Description 10/28/2021 Refill [facility] - Family Medicine [facility] [address] [place] [phone] Yaw Sol MD [address] [place] [address] Medication Refill Social History Tobacco Use Types [...] Osifrah Spears 11/12/20 Office Visit Darek Salamanca, SKIVER OPERATOR, HADOOP ARCHITECT [facility] Showing recent visits within past [...] Spears 11/12/20 Office Visit Darek Salamanca APRN, HADOOP ARCHITECT [facility] [place] Showing recent visits within past 365 days [...] documented as of this encounter Care Teams Belt Measurer Relationship Specialty Start Date End Date Yaw Sol MD PCP - General Family Medicine 06/18/20 10/18/22 Provider, Unknown UNKNOWN PCP - General 10/23/22 04/10/23 Provider, None [place] PCP - General 04/11/23 Provider, Unknown UNKNOWN 04/11/23 Lanie Whitaker LSW [place] Legal Service Specialist 01/26/21 12/17/21 documented as of this encounter
--- OUTSIDE RECORDS SUMMARY | 2025-01-28 22:55 | XMS_ITS | Clinical Summary ---
Author Organization [facility] Address [address] [place] [address] Care Team Providers Care Rn Embedded Name Role Phone Miscellaneous, Not In File [...] reports being admitted 1 month ago at [facility] for CVA. Will need to obtain records. [...] may need MRI to r/o new CVA. STEAM CONDITIONING OPERATOR consulted. Will need to obtain records from patient's admission 1month ago at [facility]. Immunizations Immunization Administration Dates Next Due Tdap 01/02/2019,12/08/2016 Surgical History Surgery Date Site/Laterality Comments JOINT REPLACEMENT Left knee BACK SURGERY Medical History Medical History Date Comments Arthritis COPD (chronic obstructive pulmonary disease) Stroke ([facility]) Social History Tobacco Use Types [...] on file Legal Sex Male 7:03 PM WELCOME WAGON HOSTESS Gender Identity Not on file Sexual Orientation [...] Assessment 10/15/2022 10/15/2021 Covid-19 Vaccine (2 - 2024- season) 12/31/202407/2021 Influenza Vaccine (#1) 2024 05/24/2018 DTaP/Tdap/Td Vaccine (4 - Td or Tdap) 06/02/2030 06/02/2020, 01/02/2019, 12/08/2016 Abdominal Aortic Aneurysm (A AA) Screen Completed 05/24/2020, 02/14/2017, 12/25/2016 Procedures Procedure Name Priority Date/Time Associated Diagnosis Comments CT ABDOMEN PELVIS W CONTRAST ED 05/24/2020 6:38 PM WELCOME WAGON HOSTESS from Last 3 Months or Most Recently Relevant to Health Maintenance Results * CT Abdomen Pelvis W Contrast (05/24/2020 6:38 PM WELCOME WAGON HOSTESS) Anatomical Region Laterality Modality Body N/A Computed Tomogra phy 05/24/2020 6:28 PM WELCOME WAGON HOSTESS Impressions 05/24/2020 6:52 PM WELCOME WAGON HOSTESS No acute inflammatory process is noted. No cholecystitis. Normal appendix. Diverticulosis without diverticulitis THIS IS AN ELECTRONICALLY VERIFIED FINAL REPORT 05/24/2020 6:48 PM - Electronically signed by Alvino Cruz M.D. NC: JESSIE Report ID: [id number] Reading Location: [id number] [facility] 05/24/2020 6:52 PM WELCOME WAGON HOSTESS [facility] Imaging Result Name: BENITO CISSE Ordering Phys: TRI GÓMEZ Age: 69 Date of : 1950 Accession Number: [id number] Date of Service: 05/24/2020 Gender: M EXAM [...] Procedure Note Alvino Cruz MD - 05/24/2020 [facility] Imaging Result Name: BENITO CISSE Ordering Phys: TRI GÓMEZ Age: 69 Date of : 1950 Accession Number: [id number] Date of Service: 05/24/2020 Gender: M EXAM [...] Alvino Cruz M.D. NC: JESSIE Report ID: [id number] Reading Location: [id number] Tri Gómez MD IMG CT PROCEDURES F inal Result from Last 3 Months or Most Recently Relevant to Health Maintenance Insurance [employer] MEDICARE HMO MEDICARE [facility] MEDICARE HMO [facility] MEDICARE GENERIC RISK OTHER [facility] [place] [employer] MEDICARE HMO Advance Directives For more information, please contact: [phone] * Full Code (Latest Code Status on [...] 11:22 AM 09/24/2018 5:51 PM Care Teams Rn Embedded Relationship Specialty [place] [id number] [place] [address] PCP - General Family Medicine 05/24/20 Miscellaneous, Not In File 08/20/18
--- OUTSIDE RECORDS SUMMARY | 2025-01-28 22:55 | XMS_ITS | Encounter Summary ---
Author Organization [facility] Address [address] [place] [address] Phone Care Team Providers Care Stagecraft Professor Name Role Phone Yaw Sol MD Primary Care Provider [phone] Provider, Unknown Primary Care Provider Unavaila ble Provider, None Primary Care Provider Unavailabl e Provider, Unknown Unavailable Unavailable Reason for Visit * Reason Comments Medication Refill Encounter Details Date Type Department Care Team (Late st Contact Info) Description 07/31/2022 Refill [facility] [address] [place] [id number] Yaw Sol MD [address] [place] [address] Medication Refill Social History Tobacco Use Types [...] documented as of this encounter Care Teams Stagecraft Professor Relationship Specialty Start Date End Date Yaw Sol MD PCP - General Family Medicine 06/18/20 10/18/22 Provider, Unknown UNKNOWN PCP - General 10/23/22 04/10/23 Provider, None [place] PCP - General 04/11/23 Provider, Unknown UNKNOWN 04/11/23 documented as of this encounter
--- OUTSIDE RECORDS SUMMARY | 2025-01-28 22:55 | XMS_ITS | Encounter Summary ---
Author Organization [facility] Address [address] [place] [address] Phone Care Team Providers Care Library Media Specialist Name Role Phone Yaw Sol MD Primary Care Provider Provider, Unknown Primary Care Provider Unavaila ble Provider, None Primary Care Provider Unavailabl e Provider, Unknown Unavailable Unavailable Reason for Visit * Reason Comments Medication Refill Encounter Details Date Type Department Care Team (Late st Contact Info) Description 06/25/2022 Refill [facility] [address] [place] [id number] Yaw Sol MD [address] [place] [address] Medication Refill Social History Tobacco Use Types [...] Na Bustamante RN - 06/28/2022 8:21 AM HEALTHCARE CUSTOMER SERVICE Patient needs appointment. 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, unspecified blood vessel laterality documented in this encounter Additional Health Concerns Infection Onset Date Last Indicated Resolved Time COVID - 19 12/06/2022 12/06/2022 12/06/2022 5:51 PM CDT Respiratory Rule-Out 12/06/2022 12/06/2022 023 1:44 PM CDT Assessment Noted Time PHQ-9 Depression Total Score: 1 01/27/20 21 4:01 PM CDT documented as of this encounter Care Teams Library Media Specialist Relationship Specialty Start Date End Date Yaw Sol MD PCP - General Family Medicine 06/18/20 10/18/22 Provider, Unknown UNKNOWN PCP - General 10/23/22 04/10/23 Provider, None [place] PCP - General 04/11/23 Provider, Unknown UNKNOWN 04/11/23 documented as of this encounter
--- OUTSIDE RECORDS SUMMARY | 2025-01-28 22:55 | XMS_ITS | Encounter Summary ---
Author Organization [facility] Address [address] [place] [address] Phone Care Team Providers Care Superintendent Measurement Name Role Phone Yaw Sol MD Primary Care Provider [phone] Provider, Unknown Primary Care Provider Unavaila ble Provider, None Primary Care Provider Unavailabl e Provider, Unknown Unavailable Unavailable Lanie Whitaker Unavailable Unavailab le Reason for Visit * Reason Comments Medication Refill Encounter Details Date Type Department Care Team (Late st Contact Info) Description 11/27/2021 Refill [facility] - Family Medicine [facility] [address] [place] [id number] Darek Salamanca, INGREDIENT SCALER, MERCHANDISE FLOW ASSOCIATE [address] [address] Medication Refill Social History Tobacco Use Types [...] documented as of this encounter Care Teams Superintendent Measurement Relationship Specialty Start Date End Date Yaw Sol MD PCP - General Family Medicine 06/18/20 10/18/22 Provider, Unknown UNKNOWN PCP - General 10/23/22 04/10/23 Provider, None [place] PCP - General 04/11/23 Provider, Unknown UNKNOWN 04/11/23 Lanie Whitaker LSW [place] Vegetable Thinner 01/26/21 12/17/21 documented as of this encounter
--- NOTE | 2025-01-28 23:18 | PC.NURSE ---
pt verbalized I know my body i am having a stroke. Pt current NIHSS 0. Pt moving all extremities and unable to tell this rn what his stroke symptoms are other than I am having a stroke.
--- NOTE | 2025-01-28 23:22 | PC.NURSE ---
jamal thrasher aware of pt claims to having a stroke
[2025-01-29] VITALS (16 sets, daily range): BP systolic 108–140; BP diastolic 59–76; PULSE 59–80; RESP 14–24; O2SAT 98–99
[2025-01-29] LABS: Influenza A QL RT-PCR Negative (Negative); Influenza B QL RT-PCR Negative (Negative); RSV RNA, RT-PCR Negative (Negative); SARS-CoV-2 RNA PCR Negative (Negative)
--- NOTE | 2025-01-29 00:14 | PC.NURSE ---
labs added onto blood sent previously.
[2025-01-29 00:24] LABS: Alanine Aminotransferase 9 U/L (6-50); Albumin Level 4.1 g/dL (3.5-5.1); Alkaline Phosphatase 78 U/L (38-126); Anion Gap 6 mmol/L (4-12); Aspartate Amino Transferase 19 U/L (17-59); Bilirubin,Total 0.6 mg/dL (0.2-1.3); Blood Urea Nitrogen 28 mg/dL (9-20); Calcium 9.1 mg/dL (8.4-10.2); Carbon Dioxide 27 mmol/L (22-30); Chloride 107 mmol/L (98-107); Estimated CRCL calculation 53 ml/min; Estimated Glomerular Filt Rate > 60; Glucose 78 mg/dL (65-110); Potassium 4.5 mmol/L (3.4-5.0); Sodium 140 mmol/L (137-145); Total Protein 7.5 g/dL (6.3-8.2)
[2025-01-29 00:30] LABS: Hematocrit 42.0 % (42.0-52.0); Hemoglobin 13.5 g/dL (14.0-18.0); Immature Granulocyte Percent A 0.2 % (0-0.5); Lymphocytes Absolute Auto 2.22 K/mm3 (0.9-3.2); Mean Corpuscular HGB Conc 32.1 g/dl (32-36); Mean Corpuscular Hemoglobin 29.9 pg (26-34); Mean Corpuscular Volume 93.1 fl (80-100); Nucleated Red Blood Cells Absolute Auto 0.000 K/mm3 (0.0-0.012); Nucleated Red Blood Cells Perc 0.0 % (0.0-0.2); Platelet Count Result 242 k/mm3 (150-375); Red Blood Count 4.51 M/mm3 (4.6-6.20); White Blood Count 6.4 K/mm3 (4.5-10.0)
[2025-01-29 00:35] LABS: INR 1.2; Prothrombin Time 15.1 Seconds (11.1-14.7)
[2025-01-29 00:36] LABS: NT Pro B Type Natriuretic Pept 94 pg/mL (19.9-100); Partial Thromboplastin Time 27.9 Seconds (22.3-36.8); Troponin I < 0.012 ng/mL (0.000-0.034)
[2025-01-29 01:24] LABS: Add Urine Microscopic? NO; Appearance Urine Clear (Clear); Glucose Urine UA Negative (Negative); Leukocyte Esterase Ur Negative LEU/UL (Negative); Nitrate Urine Negative (Negative); Specific Grav Ur 1.028 (1.001-1.035)
--- NOTE | 2025-01-29 01:31 | ED_ITS ---
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 Patient reports he began having URI sx's today, including cough, congestion, rhinorrhea. Reports mild SOB, diffuse CP. Denies fevers, known sick contacts. Denies swelling in legs. Patient is a smoker. Related Data Home Medications ?Medication ?Instructions ?Recorded ?Confirmed ?Last Taken ?Type naproxen 500 mg tablet 500 mg PO BID PRN Pain (Scal e 12/01/23 12/01/23 Unknown History Score 1-3) Allergies Allergy/AdvReac Type Severity Reaction Status Date / Time No Known Allergies Allergy Verified 01/28/25 23:03 Review of Systems 2 Review of Systems: All systems reviewed & are unremarkable except as noted in HPI. All systems reviewed & are unremarkable except as noted in HPI and below PMFSH Past Medical History Medical History Cocaine abuse Tobacco abuse Normocytic anemia History of depression History of anxiety History of CHF (congestive heart failure) Arthritis Surgical History Surgical History History of left knee replacement Social History Social History Smoking packs per day: 1 Smoking cigarettes per day: 20.0 Smoking status: Current every day smoker Alcohol intake: never Substance use: current Substance use type: crack/cocaine Last use: POSITIVE LABS ON ADMISSION Do You Feel Safe in your Home?: Yes Lack of Transportation: YES Lack of Food: Sometimes True Current Housing: I Do Not Have Housing Concerned About Future Housing: YES Difficulty Paying Gas/Electric Bills: YES Difficulty Paying for Meds: YES Currently Unemployed: YES Education: Don't Know Difficulty w/ Childcare or Family Care: No Gender identity (if verbalized by the patient): Male Spiritual care concerns: No Exam 2 Narrative: GENERAL: Elderly, thin, non-toxic, in no acute distress. HEAD: Normocephalic, atraumatic. RESPIRATORY: Airway patent, respirations nonlabored. Clear to auscultation bilaterally, no rales, rhonchi, wheezing. No significant focal lung sounds. CARDIOVASCULAR: Regular rate and rhythm without murmurs, rubs, or gallops. MUSCULOSKELETAL: Moves all extremities. No gross deformities. SKIN: Warm, dry, normal color. NEURO: A&O X3. Speech intermittently aphasic, consistent with previous CVA. Cranial nerves II-XII grossly intact. Steady gait. No ataxic movements. No acute focal deficits PSYCHIATRIC: Appropriate mood and affect. Normal interaction. Course Vital Signs Vital signs: Vital Signs Temperature 97.9 F 01/28/25 22:57 Pulse Rate 80 01/28/25 22:57 Respiratory Rate 18 01/28/25 22:57 Blood Pressure 120/68 01/28/25 22:57 Pulse Oximetry 100 01/28/25 22:57 Oxygen Delivery Room Air 01/28/25 22:57 Temperature 97.9 F 01/28/25 22:57 Pulse Rate 62 01/29/25 01:00 Respiratory Rate 15 01/29/25 01:00 Blood Pressure 120/62 01/29/25 00:31 Pulse Oximetry 99 01/29/25 00:31 Oxygen Delivery Room Air 01/28/25 23:03 MDM - URI/Sore Throat MDM Narrative Medical decision making narrative: Patient presented to ED with URI symptoms of began today, chest pain, shortness breath. Vital signs are stable upon arrival. Patient in no acute distress. Afebrile. Oxygen stable on room air. EKG without ischemic changes. No concerning ST changes. Baseline troponin undetectable BNP within normal range D-dimer within normal range Chest x-ray is clear Viral swabs are negative Remainder basic laboratory studies are otherwise unremarkable. No leukocytosis or significant anemia. Stable electrolytes and kidney function. UA with trace ketones. UDS is positive for cocaine. Patient has known history of substance abuse. ETOH negative. Attempted to obtain 3 hour troponin, however patient adamantly declined further blood draw. I went to bedside and explained to patient the importance of obtaining 3 hour troponin however he adamantly declines. Advised with incomplete evaluation, will need to sign out against medical advice. Discussed the risks of doing so. Patient voiced understanding. Is agreeable to signing out AMA. Discussed remainder of laboratory studies with patient. Discussed likelihood of viral URI. Discussed management of such. Advised patient can return at any time. Medical Records Attestation: I reviewed the patient's medical records. Lab Data Attestation: I reviewed the patient's lab results. 01/28/25 23:14 01/28/25 23:14 Labs: Lab Results 01/28/25 01/29/25 Range/Units 23:14 01:04 WBC 6.4 (4.5-10.0) K/mm3 RBC 4.51 L (4.6-6.20) M/mm3 Hgb 13.5 L (14.0-18.0) g/dL Hct 42.0 (42.0-52.0) % MCV 93.1 (80-100) fl MCH 29.9 (26-34) pg MCHC 32.1 (32-36) g/dl RDW 13.5 (11.5-14.5) % Plt Count 242 (150-375) k/mm3 MPV 10.3 (7.4-10.4) fl Immature Gran % (Auto) 0.2 (0-0.5) % Neut % (Auto) 56.7 (45.5-73.1) % Lymph % (Auto) 34.6 (18.3-44.2) % [place] % (Auto) 6.5 (2.6-8.5) % Eos % (Auto) 1.1 (0-4.4) % Baso % (Auto) 0.9 (0.2-1.2) % Lymph # (Auto) 2.22 (0.9-3.2) K/mm3 [place] # (Auto) 0.4 (0.1-0.6) K/mm3 Eos # (Auto) 0.1 (0-0.3) K/mm3 Baso # (Auto) 0.1 (0.0-0.1) K/mm3 Abs Immat Gran (auto) 0.01 (0.00-0.031) K/mm3 Absolute Neuts (auto) 3.6 (1.3-6.7) K/mm3 Absolute Nucleated RBC 0.000 (0.0-0.012) K/mm3 Nucleated RBC % 0.0 (0.0-0.2) % PT 15.1 H (11.1-14.7) Seconds INR 1.2 APTT 27.9 (22.3-36.8) Seconds D-Dimer 0.43 (<0.48) ug/mL Sodium 140 (137-145) mmol/L Potassium 4.5 (3.4-5.0) mmol/L Chloride 107 (98-107) mmol/L Carbon Dioxide 27 (22-30) mmol/L Anion Gap 6 (4-12) mmol/L BUN 28 H (9-20) mg/dL Creatinine 0.98 (0.7-1.3) mg/dL Estim Creat Clear Calc 53 ml/min Estimated GFR > 60 (59 - ) Glucose 78 (65-110) mg/dL Calcium 9.1 (8.4-10.2) mg/dL Total Bilirubin 0.6 (0.2-1.3) mg/dL AST 19 (17-59) U/L ALT 9 (6-50) U/L Alkaline Phosphatase 78 (38-126) U/L Troponin I < 0.012 (0.000-0.034) ng/mL NT-Pro-B Natriuret Pep 94 (19.9-100) pg/mL Total Protein 7.5 (6.3-8.2) g/dL Albumin 4.1 (3.5-5.1) g/dL Urine Color Yellow (Yellow) Urine Appearance Clear (Clear) Urine pH 5.5 (5.0-9.0) Ur Specific [place] 1.028 (1.001-1.035) Urine Protein Negative (Negative) mg/dL Urine Glucose (UA) Negative (Negative) mg/dL Urine Ketones Trace H (Negative) mg/dL Ur Blood (Man) Negative (Negative) Urine Nitrate Negative (Negative) Urine Bilirubin Negative (Negative) Urine Urobilinogen 1.0 (<2.0) mg/dL Leukocyte Esterase Rfl Negative (Negative) MEGAN/UL Urine Opiates Screen Negative (Negative) Urine Methadone Screen Negative (Negative) Ur Barbiturates Screen Negative (Negative) Ur Phencyclidine Scrn Negative (Negative) Ur Amphetamine Screen Negative (Negative) U Benzodiazepines Scrn Negative (Negative) Urine Cocaine Screen Positive A (Negative) U Cannabinoids Screen Negative (Negative) Ethyl Alcohol < 10 (<10) mg/dL Influenza A (RT-PCR) Negative (Negative) Influenza B (RT-PCR) Negative (Negative) RSV (RT-PCR) Negative (Negative) SARS-CoV-2 RNA (RT-PCR) Negative (Negative) Imaging Data Attestation: I personally reviewed and interpreted this imaging study as follows: Radiologist's impression: STAT RAD CXR: No focal consolidation, pleural effusion, or pneumothorax. No cardiomegaly. ECG Data EKG #1: Attestation: I personally reviewed and interpreted this ECG as follows: ECG completion date: 01/29/25 ECG completion time: 00:16 EKG Interpretation: normal rate (67), sinus rhythm (first degree AV block) and no ST changes Discharge Plan Discharge Clinical Impression: Atypical chest pain Upper respiratory infection Qualifiers: URI type: unspecified URI Qualified Code(s): J06.9 - Acute upper respiratory infection, unspecified Patient Disposition: Left Against Medical Advice Condition: Stable Instructions: Antibiotic Form, Upper Respiratory Infection (ED), Viral Syndrome (ED), Cold Symptoms (ED) Additional Instructions: It was recommended you obtain a repeat cardiac enzyme (troponin) however you declined this. You may return at any time to resume evaluation. You tested negative for COVID, influenza, RSV. You likely have an upper respiratory infection that should resolve on its own. Stay well-hydrated at home. Utilize Tessalon Perles as needed for cough. Recommend Tylenol and Ibuprofen for discomfort and/or fevers. Recommend seot-kpo-pnkwkhy cough and cold medicines for symptom relief, Delsym, Mucinex, DayQuil, NyQuil, Sudafed, Robitussin, TheraFlu. Recommend follow up with your primary care doctor for further evaluation. Patient Language: Sammarinese Prescriptions: New benzonatate 200 mg capsule 200 mg PO TID PRN (Reason: cough) Qty: 20 0RF No Action naproxen 500 mg tablet 500 mg PO BID PRN (Reason: Pain (Scale Score 1-3)) amoxicillin-pot clavulanate 875-125 mg tablet 1 tablet PO Q12H Qty: 14 0RF prednisone 20 mg tablet 40 mg PO DAILY Qty: 10 0RF albuterol sulfate 90 mcg/actuation HFA aerosol inhaler 1 inh inhalation QID PRN (Reason: shortness of breath or wheezing) Qty: 6.7 0RF lidocaine 5 % adhesive patch,medicated 1 patch topical DAILY Qty: 15 0RF Rx Instructions: leave on most painful area for up to 12 hrs naproxen 500 mg tablet 500 mg PO BID PRN (Reason: pain) Qty: 20 0RF azithromycin 250 mg tablet 250 mg PO DAILY 4 Days Qty: 4 0RF Rx Instructions: start on day 2 of therapy prednisone 20 mg tablet 40 mg PO DAILY 4 Days Qty: 8 0RF albuterol sulfate 90 mcg/actuation HFA aerosol inhaler 2 puff inhalation QID PRN (Reason: shortness of breath or wheezing) Qty: 8.5 0RF acetaminophen 500 mg capsule 500 mg PO Q6H PRN (Reason: pain) Qty: 14 0RF amoxicillin 500 mg capsule 1,000 mg PO Q8H 5 Days Qty: 30 0RF azithromycin 250 mg tablet See Rx Instructions .ROUTE .COMPLEX Qty: 6 0RF Rx Instructions: For 250 mg dose pack: take 500 mg today (day 1), then 250 mg for 4 days (days 2-5) Follow-up/Referrals: PHYSICIAN,STOREROOM CLERK [Primary Care Provider, Internal Medicine] Abilio Hendrix MD [Physician, Family Practice] Referral Note: PRIMARY CARE
[2025-01-29 01:37] LABS: Cannabinoid Screen Urine Negative (Negative)
--- NOTE | 2025-01-29 02:08 | ECG_ITS ---
Test Date: 2025-01-29 00:16:44 Measurements Intervals Scroggins Rate: 67 P: 65 HI: 234 QRS: 64 QRSD: 91 T: 70 QT: 384 QTc: 406 Interpretive Statements SINUS RHYTHM WITH FIRST DEGREE AV BLOCK Compared to ECG 09/17/2024 02:44:15 First degree AV block now present Electronically Signed On 01-29-2025 06:03:54 CDT by Joaquin Calle M.D.
--- NOTE | 2025-01-29 02:26 | PC.NURSE ---
pt refused to let me draw his blood made a fist and screamed of why he could not do it though his IV. I explained could not do it though IV made a another fist
--- NOTE | 2025-01-29 02:38 | PC.NURSE ---
pt refusing 3 hr ekg/troponin. EDP Hiwot at bedside - pt signing out ama.
== END 2025-01-29 02:39 | disposition left against medical advice (07) ==
PROVIDERS: Emergency Provider Physician Assistant
DX: J06.9 Acute upper respiratory infection, unspecified (principal); R07.89 Other chest pain; Z20.822 Contact with and (suspected) exposure to COVID-19; I69.920 Aphasia following unspecified cerebrovascular disease; I50.9 Heart failure, unspecified; M19.90 Unspecified osteoarthritis, unspecified site; F14.10 Cocaine abuse, uncomplicated; F17.210 Nicotine dependence, cigarettes, uncomplicated; Z96.652 Presence of left artificial knee joint; I44.0 Atrioventricular block, first degree
CPT/HCPCS: 36415; 71046; 80053; 80307; 81003; 82077; 83880; 84484; 85025; 85380; 85610; 85730; 87637; 93005; 99284

== ENCOUNTER 2025-02-13 04:22 | Emergency (ER) | payer MEDICARE, MEDICAID, SELFPAY ==
--- NOTE | ~2025-02-13 | XR_ITS ---
Examination: XR chest 1V portable Clinical History: infection Comparison: 01/28/2025 Technique: Portable AP Findings: Heart size normal. Lungs clear. No acute bony abnormality. IMPRESSION: 1. No acute cardiopulmonary findings given portable technique. Reviewed, dictated and finalized at location R.
--- NOTE | ~2025-02-13 | CT_ITS ---
CT HEAD NON-CONTRAST Clinical History: GU[place]UPE, hallucinations Comparison: 12/17/2023 Technique: Unenhanced axial images skull base to vertex Coronal, sagittal reformats CT images acquired with automatic exposure control for dose reduction DLP: 757 mGy-cm Findings: White matter chronic microvascular ischemic changes. Encephalomalacia left MCA distribution. 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 Cavum septum pellucidum et vergae. Sulci, ventricles: Unremarkable. No intracerebral hemorrhage. No evidence acute territorial infarct. No mass effect, midline shift. Bony calvarium intact. Visualized paranasal sinuses: Clear. Mastoid air cells: Clear. IMPRESSION: 1. No acute intracranial findings. Reviewed, dictated and finalized at location R.
[2025-02-13 04:23] VITALS: BP 134/68; PULSE 63; RESP 16; TEMP 36.9; O2SAT 100
--- OUTSIDE RECORDS SUMMARY | 2025-02-13 04:36 | XMS_ITS | Encounter Summary ---
Author Organization [facility] Address [address] [place] [address] Phone Care Team Providers Care Warp Trucker Name Role Phone Yaw Sol MD Primary Care Provider [phone] Provider, Unknown Primary Care Provider Unavaila ble Provider, None Primary Care Provider Unavailabl e Provider, Unknown Unavailable Unavailable Reason for Visit * Reason Comments Medication Refill Encounter Details Date Type Department Care Team (Late st Contact Info) Description 06/25/2022 Refill [facility] [address] [place] [phone] Yaw Sol MD [address] [place] [address] Medication Refill Social History Tobacco Use Types [...] Na Bustamante RN - 06/28/2022 8:21 AM SERVICE DESK AGENT Patient needs appointment. Medication failed the protocol, [...] 90 days and meeting all other requirements ICE DESK AGENT documented in this encounter Plan of Treatment [...] documented as of this encounter Care Teams Warp Trucker Relationship Specialty Start Date End Date Yaw Sol MD PCP - General Family Medicine 06/18/20 10/18/22 Provider, Unknown UNKNOWN PCP - General 10/23/22 04/10/23 Provider, None [place] PCP - General 04/11/23 Provider, Unknown UNKNOWN 04/11/23 documented as of this encounter
--- OUTSIDE RECORDS SUMMARY | 2025-02-13 04:36 | XMS_ITS | Encounter Summary ---
Author Organization [facility] Address [address] [place] [address] Phone Care Team Providers Care Distribution Lineman Name Role Phone Yaw Sol MD Primary Care Provider Provider, Unknown Primary Care Provider Unavaila ble Provider, None Primary Care Provider Unavailabl e Provider, Unknown Unavailable Unavailable Reason for Visit * Reason Comments Medication Refill Encounter Details Date Type Department Care Team (Late st Contact Info) Description 08/27/2022 Refill [facility] [address] [place] [id number] Yaw Sol MD [address] [place] [address] Medication Refill Social History Tobacco Use Types [...] Provider Dept 09/10/22 Appointment Yaw Sol MD [facility] Showing future appointments within next 90 days [...] documented as of this encounter Care Teams Distribution Lineman Relationship Specialty Start Date End Date Yaw Sol MD PCP - General Family Medicine 06/18/20 10/18/22 Provider, Unknown UNKNOWN PCP - General 10/23/22 04/10/23 Provider, None [place] PCP - General 04/11/23 Provider, Unknown UNKNOWN 04/11/23 documented as of this encounter
--- OUTSIDE RECORDS SUMMARY | 2025-02-13 04:36 | XMS_ITS | Encounter Summary ---
Author Organization [facility] Address [address] [place] [address] Phone Care Team Providers Care Latex Dipper Name Role Phone Yaw Sol MD Primary Care Provider [phone] Provider, Unknown Primary Care Provider Unavaila ble Provider, None Primary Care Provider Unavailabl e Provider, Unknown Unavailable Unavailable Lanie Whitaker Unavailable Unavailab le Reason for Visit * Reason Comments Medication Refill Encounter Details Date Type Department Care Team (Late st Contact Info) Description 11/27/2021 Refill [facility] - Family Medicine [facility] [address] [place] [id number] Darek Salamanca, TONSORIAL ARTIST, BUDGET COORDINATOR [address] [address] Medication Refill Social History Tobacco Use Types [...] documented as of this encounter Care Teams Latex Dipper Relationship Specialty Start Date End Date Yaw Sol MD PCP - General Family Medicine 06/18/20 10/18/22 Provider, Unknown UNKNOWN PCP - General 10/23/22 04/10/23 Provider, None [place] PCP - General 04/11/23 Provider, Unknown UNKNOWN 04/11/23 Lanie Whitaker LSW [place] Payroll Administrator 01/26/21 12/17/21 documented as of this encounter
--- OUTSIDE RECORDS SUMMARY | 2025-02-13 04:36 | XMS_ITS | Clinical Summary ---
Author Organization [facility] Address [address] [place] [address] Care Team Providers Care Home Lending Officer Name Role Phone Miscellaneous, Not In File [...] reports being admitted 1 month ago at [facility] for CVA. Will need to obtain records. [...] may need MRI to r/o new CVA. JUKEBOX CHECKER consulted. Will need to obtain records from patient's admission 1month ago at [facility]. 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 No cholecystitis. Normal appendix. Diverticulosis without diverticulitis THIS IS AN ELECTRONICALLY VERIFIED FINAL REPORT 05/24/2020 6:48 PM - Electronically signed by Alvino Cruz M.D. NC: JESSIE Report ID: [id number] Reading Location: [id number] [facility] 05/24/2020 6:52 PM ASSISTANT CASINO SHIFT MANAGER [facility] Imaging Result Name: BENITO CISSE Ordering Phys: TRI GÓMEZ Age: 69 Date of : 1950 Accession Number: [id number] Date of Service: 05/24/2020 Gender: M EXAM [...] Procedure Note Alvino Cruz MD - 05/24/2020 [facility] Imaging Result Name: BENITO CISSE Ordering Phys: TRI GÓMEZ Age: 69 Date of : 1950 Accession Number: [id number] Date of Service: 05/24/2020 Gender: M EXAM [...] Alvino Cruz M.D. NC: JESSIE Report ID: [id number] Reading Location: [id number] Tri Gómez MD IMG CT PROCEDURES F inal Result from Last 3 Months or Most Recently Relevant to Health [place] [id number] [employer] MEDICARE HMO MEDICARE ID[facility] MEDICARE HMO [facility] MEDICARE GENERIC RISK OTHER [facility] [place] IDPA [employer] MEDICARE HMO Advance Directives For more information, please contact: [phone] * Full Code (Latest Code Status on [...] 11:22 AM 09/24/2018 5:51 PM Care Teams Home Lending Officer Relationship Specialty [place] [id number] [place] [address] PCP - General Family Medicine 05/24/20 Miscellaneous, Not In File 08/20/18
--- OUTSIDE RECORDS SUMMARY | 2025-02-13 04:36 | XMS_ITS | Encounter Summary ---
Author Organization [facility] Address [address] [place] [address] Phone Care Team Providers Care Air Force Pilot Name Role Phone Yaw Sol MD Primary Care Provider [phone] Provider, Unknown Primary Care Provider Unavaila ble Provider, None Primary Care Provider Unavailabl e Provider, Unknown Unavailable Unavailable Reason for Visit * Reason Comments Medication Refill Encounter Details Date Type Department Care Team (Late st Contact Info) Description 07/02/2022 Refill [facility] - [facility] [address] [place] [id number] Yaw Sol MD [address] [place] [address] Medication Refill Social History Tobacco Use Types [...] Chey Crane RMA - 07/05/2022 9:19 AM CNC FIELD SERVICE ENGINEER Mailed letter FIELD SERVICE ENGINEER * Telephone Encounter - Kristina Cotton RN - 07/02/2022 5:19 PM CST Needs OV with PCP FIELD SERVICE ENGINEER * Telephone Encounter - Kristina Cotton [...] LDL, HDLCHOLESTE, CHOLESTEROL, TRIGLYCRIDES, VLDL, CHDL, HDLNON FIELD SERVICE ENGINEER documented in this encounter Plan of [...] documented as of this encounter Care Teams Air Force Pilot Relationship Specialty Start Date End Date Yaw Sol MD PCP - General Family Medicine 06/18/20 10/18/22 Provider, Unknown UNKNOWN PCP - General 10/23/22 04/10/23 Provider, None [place] PCP - General 04/11/23 Provider, Unknown UNKNOWN 04/11/23 documented as of this encounter
--- OUTSIDE RECORDS SUMMARY | 2025-02-13 04:36 | XMS_ITS | Clinical Summary ---
Author Organization [facility] Address [address] [place] [address] Care Team Providers Care Room Service Waiter Name Role Phone Unavailable Primary Care Provider Unavailabl e Source Comments [facility],non-owned Affiliates and Associated Physician Practices is amultiple site organization consisting of ambulatory clinics and hospital sitesin [place], [place], [place] and [place]. This disclosure is being madepursuant to the Care Everywhere program and may not contain all information available regarding this patient. Last updated 18.[facility] [employer] Allergies No known active allergies Medications * [...] on file Legal Sex Male 4:51 PM FOOD PREPARATION WORKER Gender Identity Not on file Sexual Orientation Not on file Last Filed Vital Signs Vital Sign Reading Time Taken Comments Blood Pressure 116/62 06/06/2019 7:10 AM FOOD PREPARATION WORKER Pulse 61 06/06/2019 7:10 AM FOOD PREPARATION WORKER Temperature 36.1 C (96.9 F) 06/06/2019 7:10 AM FOOD PREPARATION WORKER Respiratory Rate 20 06/06/2019 10:14 AM FOOD PREPARATION WORKER Oxygen Saturation 99% 06/06/2019 7:10 AM FOOD PREPARATION WORKER Inhaled Oxygen Concentration - - Weight 77.1 kg (170 lb) 06/06/2019 7:10 AM FOOD PREPARATION WORKER Height 167.6 cm (5' 6) 06/06/2019 7:10 AM FOOD PREPARATION WORKER Body Mass Index 27.44 06/06/2019 7:10 AM FOOD PREPARATION WORKER Plan of Treatment Health Maintenance Due [...]
--- OUTSIDE RECORDS SUMMARY | 2025-02-13 04:36 | XMS_ITS | Encounter Summary ---
Author Organization [facility] Address [address] [place] [address] Phone Care Team Providers Care Life Insurance Sales Name Role Phone Yaw Sol MD Primary Care Provider [phone] Provider, Unknown Primary Care Provider Unavaila ble Provider, None Primary Care Provider Unavailabl e Provider, Unknown Unavailable Unavailable Lanie Whitaker ASSEMBLER FITTER Unavailable Unavailab le Reason for Visit * Reason Comments Medication Refill Encounter Details Date Type Department Care Team (Late st Contact Info) Description 10/28/2021 Refill [facility] - [facility] [address] [place] [id number] Yaw Sol MD [address] [place] [address] Medication Refill Social History Tobacco Use Types [...] Osifrah Spears 11/12/20 Office Visit Darek Salamanca, YARN HANDLER, CULTURIST [facility] Showing recent visits within past [...] Spears 11/12/20 Office Visit Darek Salamanca APRN, CULTURIST [facility] [place] Showing recent visits within past 365 days [...] documented as of this encounter Care Teams Life Insurance Sales Relationship Specialty Start Date End Date Yaw Sol MD PCP - General Family Medicine 06/18/20 10/18/22 Provider, Unknown UNKNOWN PCP - General 10/23/22 04/10/23 Provider, None [place] PCP - General 04/11/23 Provider, Unknown UNKNOWN 04/11/23 Lanie Whitaker LSW [place] Timber Watchman 01/26/21 12/17/21 documented as of this encounter
--- OUTSIDE RECORDS SUMMARY | 2025-02-13 04:36 | XMS_ITS | Encounter Summary ---
Author Organization [facility] Address [address] [place] [address] Phone Care Team Providers Care Melt Helper Name Role Phone Yaw Sol MD Primary Care Provider [phone] Provider, Unknown Primary Care Provider Unavaila ble Provider, None Primary Care Provider Unavailabl e Provider, Unknown Unavailable Unavailable Reason for Visit * Reason Comments Medication Refill Encounter Details Date Type Department Care Team (Late st Contact Info) Description 07/31/2022 Refill [facility] [address] [place] [phone] Yaw Sol MD [address] [place] [address] Medication Refill Social History Tobacco Use Types [...] documented as of this encounter Care Teams Melt Helper Relationship Specialty Start Date End Date Yaw Sol MD PCP - General Family Medicine 06/18/20 10/18/22 Provider, Unknown UNKNOWN PCP - General 10/23/22 04/10/23 Provider, None [place] PCP - General 04/11/23 Provider, Unknown UNKNOWN 04/11/23 documented as of this encounter
--- NOTE | 2025-02-13 04:39 | PC.NURSE ---
pt refused covid/flu/RSV swab stating he already had it.
--- NOTE | 2025-02-13 04:59 | PC.NURSE ---
phlebotomy called for pt blood draw. Multiple RN attempts and unable to obtain blood
--- NOTE | 2025-02-13 05:21 | ED_ITS ---
HPI - General Adult General Chief complaint: Headache <Sidney Davis MD - Last Filed: 02/13/25 05:54> Stated complaint: GUADALUPE & HALLUCINATIONS X 1 WEEK <Sidney Davis MD - Last Filed: 02/13/25 05:54> Time Seen by Provider: 02/13/25 04:27 <Sidney Davis MD - Last Filed: 02/13/25 05:54> History of Present Illness HPI narrative: Patient is a 74-year-old male who presents emergency department this morning via EMS complaining of a headache and hallucinations. Patient states that symptoms have been ongoing for approximately 1 week. He denies any recent falls or trauma. Lives at home with his which helps care for him. He is alert and oriented to person and place, not time. Does not know his current address. Denies any suicidal or homicidal ideations. <Sidney Davis MD - Last Filed: 02/13/25 05:54> Related Data Home medications: Home Medications ?Medication ?Instructions ?Recorded ?Confirmed ?Last Taken ?Type naproxen 500 mg tablet 500 mg PO BID PRN Pain (Scal e 12/01/23 12/01/23 Unknown History Score 1-3) <Sidney Davis MD - Last Filed: 02/13/25 05:54> Allergies/adverse reactions: Allergies Allergy/AdvReac Type Severity Reaction Status Date / Time No Known Allergies Allergy Verified 01/28/25 23:03 <Sidney Davis MD - Last Filed: 02/13/25 05:54> Review of Systems 2 Review of Systems: All systems are reviewed and are negative unless stated otherwise in the HPI. <Sidney Davis MD - Last Filed: 02/13/25 05:54> PMFSH Past Medical History Medical History: Medical History Cocaine abuse Tobacco abuse Normocytic anemia History of depression History of anxiety History of CHF (congestive heart failure) Arthritis <Sidney Davis MD - Last Filed: 02/13/25 05:54> Surgical History Surgical History: Surgical History History of left knee replacement <Sidney Davis MD - Last Filed: 02/13/25 05:54> Social History Social History: Social History Smoking packs per day: 1 Smoking cigarettes per day: 20.0 Smoking status: Current every day smoker Alcohol intake: never Substance use: current Substance use type: crack/cocaine Last use: POSITIVE LABS ON ADMISSION Do You Feel Safe in your Home?: Yes Lack of Transportation: YES Lack of Food: Sometimes True Current Housing: I Do Not Have Housing Concerned About Future Housing: YES Difficulty Paying Gas/Electric Bills: YES Difficulty Paying for Meds: YES Currently Unemployed: YES Education: Don't Know Difficulty w/ Childcare or Family Care: No Gender identity (if verbalized by the patient): Male Spiritual care concerns: No <Sidney Davis MD - Last Filed: 02/13/25 05:54> Exam 2 Narrative: General: Alert, awake, afebrile, in no acute distress. HEENT: PERRL, no rhinorrhea, no post nasal drip, oropharynx clear. Neck: Trachea midline, no JVD, no lymphadenopathy. Cardiovascular: Regular rate and rhythm, no murmurs, rubs or gallops, no peripheral edema. Respiratory: Clear to auscultation bilaterally, no tachypnea, no wheezing, no rhonchi, no rubs, no respiratory distress. Abdomen: Soft, nontender, nondistended, no rebound, no guarding, no peritoneal signs. Musculoskeletal: No joint swelling or deformity, normal muscle tone. Skin: No rashes or petechia, no signs of infection. Psychiatric: Alert and oriented, normal behavior and judgment for situation. Neurological: Alert and oriented to person, place. Follows all commands. No focal deficits, speech is clear and fluent. <Sidney Davis MD - Last Filed: 02/13/25 05:54> Course Course Emergency Course: Patient signed out to me pending his workup. Normocytic anemia stable from previous. Pseudo Hypocalcemia as it corrects to 8.5 given =albumin level. On my assessment he was quite somnolent initially common protecting his airway but not responding to questions. Trace leukocyte esterase but without evidence of infection. Although he does have urinary microscopic hematuria. Drug screen positive for cocaine. I suspect he is dealing with a period of cocaine washout given his initial somnolence and reported symptoms. Patient was reassessed at 11:30 a.m.. He is more alert at this time, answering questions. He states his headache is gone and he is no longer having hallucinations. He denies any suicidal ideation or homicidal ideation at this time. He was offered to speak with someone from psych/crisis but he declines needing or wanting this or resources. Otherwise stable for discharge. < Faye العلي MD - Last Filed: 02/17/25 13:08> Vital Signs Vital signs: Vital Signs Temperature 98.4 F 02/13/25 04:23 Pulse Rate 63 02/13/25 04:23 Respiratory Rate 16 02/13/25 04:23 Blood Pressure 134/68 02/13/25 04:23 Pulse Oximetry 100 02/13/25 04:23 Oxygen Delivery Room Air 02/13/25 04:23 Temperature 98.4 F 02/13/25 04:23 Pulse Rate 58 L 02/13/25 06:00 Respiratory Rate 16 02/13/25 06:00 Blood Pressure 132/79 02/13/25 06:00 Pulse Oximetry 98 02/13/25 06:00 Oxygen Delivery Room Air 02/13/25 04:23 <Sidney Davis MD - Last Filed: 02/13/25 05:54> Vital Signs Temperature 98.4 F 02/13/25 04:23 Pulse Rate 63 02/13/25 04:23 Respiratory Rate 16 02/13/25 04:23 Blood Pressure 134/68 02/13/25 04:23 Pulse Oximetry 100 02/13/25 04:23 Oxygen Delivery Room Air 02/13/25 04:23 Temperature 98.4 F 02/13/25 04:23 Pulse Rate 58 L 02/13/25 06:00 Respiratory Rate 16 02/13/25 06:00 Blood Pressure 132/79 02/13/25 06:00 Pulse Oximetry 98 02/13/25 06:00 Oxygen Delivery Room Air 02/13/25 04:23 <Faye العلي MD - Last Filed: 02/17/25 13:08> Medical Decision Making MDM Narrative Medical decision making narrative: The patient was evaluated by myself in the emergency department. History is obtained from patient who is an independent historian and physical exam was performed. External medical records were reviewed at this time. IV was established and pertinent tests were ordered. Blood work was obtained and is currently pending. Imaging studies obtained included CXR and a CT brain without IV contrast which were both independently interpreted by me revealing no acute process. Differential diagnosis considerations include delirium secondary to infectious process such as pneumonia/UTI, acute viral syndrome, dehydration, electrolyte derangements, migraine headache, polysubstance abuse. Comorbidities impacting this visit include none. I have evaluated and discussed social determinants of health with the patient that could potentially impact subsequent diagnosis and treatment plans. Patient was signed out to AM ED physician pending remainder of the workup. <Sidney Davis MD - Last Filed: 02/13/25 05:54> Vital Signs Vital Signs: Vital Signs Temperature 98.4 F 02/13/25 04:23 Pulse Rate 63 02/13/25 04:23 Respiratory Rate 16 02/13/25 04:23 Blood Pressure 134/68 02/13/25 04:23 Pulse Oximetry 100 02/13/25 04:23 Oxygen Delivery Room Air 02/13/25 04:23 Temperature 98.4 F 02/13/25 04:23 Pulse Rate 58 L 02/13/25 06:00 Respiratory Rate 16 02/13/25 06:00 Blood Pressure 132/79 02/13/25 06:00 Pulse Oximetry 98 02/13/25 06:00 Oxygen Delivery Room Air 02/13/25 04:23 <Sidney Davis MD - Last Filed: 02/13/25 05:54> Vital Signs Temperature 98.4 F 02/13/25 04:23 Pulse Rate 63 02/13/25 04:23 Respiratory Rate 16 02/13/25 04:23 Blood Pressure 134/68 02/13/25 04:23 Pulse Oximetry 100 02/13/25 04:23 Oxygen Delivery Room Air 02/13/25 04:23 Temperature 98.4 F 02/13/25 04:23 Pulse Rate 58 L 02/13/25 06:00 Respiratory Rate 16 02/13/25 06:00 Blood Pressure 132/79 02/13/25 06:00 Pulse Oximetry 98 02/13/25 06:00 Oxygen Delivery Room Air 02/13/25 04:23 <Faye العلي MD - Last Filed: 02/17/25 13:08> Lab Data Result diagrams: 02/13/25 06:32 02/13/25 06:32 <Sidney Davis MD - Last Filed: 02/13/25 05:54> Labs: Lab Results 02/13/25 02/13/25 Range/Units 06:32 09:11 WBC 6.9 (4.5-10.0) K/mm3 RBC 4.24 L (4.6-6.20) M/mm3 Hgb 12.7 L (14.0-18.0) g/dL Hct 40.3 L (42.0-52.0) % MCV 95.0 (80-100) fl MCH 30.0 (26-34) pg MCHC 31.5 L (32-36) g/dl RDW 13.9 (11.5-14.5) % Plt Count 214 (150-375) k/mm3 MPV 9.1 (7.4-10.4) fl Immature Gran % (Auto) 0.4 (0-0.5) % Neut % (Auto) 63.7 (45.5-73.1) % Lymph % (Auto) 26.9 (18.3-44.2) % [place] % (Auto) 6.8 (2.6-8.5) % Eos % (Auto) 1.3 (0-4.4) % Baso % (Auto) 0.9 (0.2-1.2) % Lymph # (Auto) 1.85 (0.9-3.2) K/mm3 [place] # (Auto) 0.5 (0.1-0.6) K/mm3 Eos # (Auto) 0.1 (0-0.3) K/mm3 Baso # (Auto) 0.1 (0.0-0.1) K/mm3 Abs Immat Gran (auto) 0.03 (0.00-0.031) K/mm3 Absolute Neuts (auto) 4.4 (1.3-6.7) K/mm3 Absolute Nucleated RBC 0.000 (0.0-0.012) K/mm3 Nucleated RBC % 0.0 (0.0-0.2) % Sodium 137 (137-145) mmol/L Potassium 3.9 (3.4-5.0) mmol/L Chloride 105 (98-107) mmol/L Carbon Dioxide 27 (22-30) mmol/L Anion Gap 5 (4-12) mmol/L BUN 15 D (9-20) mg/dL Creatinine 0.90 (0.7-1.3) mg/dL Estim Creat Clear Calc 58 ml/min Estimated GFR > 60 (59 - ) Glucose 86 (65-110) mg/dL Calcium 8.3 L (8.4-10.2) mg/dL Magnesium 2.0 (1.6-2.3) mg/dL Total Bilirubin 0.5 (0.2-1.3) mg/dL AST 24 (17-59) U/L ALT 11 (6-50) U/L Alkaline Phosphatase 75 (38-126) U/L Total Protein 6.9 (6.3-8.2) g/dL Albumin 3.7 (3.5-5.1) g/dL Urine Color Yellow (Yellow) Urine Appearance Clear (Clear) Urine pH 7.0 (5.0-9.0) Ur Specific [place] 1.020 (1.001-1.035) Urine Protein Negative (Negative) mg/dL Urine Glucose (UA) Negative (Negative) mg/dL Urine Ketones Negative (Negative) mg/dL Ur Blood (Man) Negative (Negative) Urine Nitrate Negative (Negative) Urine Bilirubin Negative (Negative) Urine Urobilinogen 1.0 (<2.0) mg/dL Leukocyte Esterase Rfl Trace H (Negative) MEGAN/UL Urine RBC 3-5 H (0-2) /hpf Urine WBC 0-5 (0-3) /hpf Ur Squamous Epith Cells None seen (Few) /hpf Urine Bacteria None seen /hpf Urine Casts 0-2 Salicylates < 1.0 L (2-20) mg/dL Urine Opiates Screen Negative (Negative) Urine Methadone Screen Negative (Negative) Acetaminophen < 10 L (10-30) ug/mL Ur Barbiturates Screen Negative (Negative) Ur Phencyclidine Scrn Negative (Negative) Ur Amphetamine Screen Negative (Negative) U Benzodiazepines Scrn Negative (Negative) Urine Cocaine Screen Positive A (Negative) U Cannabinoids Screen Negative (Negative) Ethyl Alcohol < 10 (<10) mg/dL <Sidney Davis MD - Last Filed: 02/13/25 05:54> Lab Results 02/13/25 02/13/25 Range/Units 06:32 09:11 WBC 6.9 (4.5-10.0) K/mm3 RBC 4.24 L (4.6-6.20) M/mm3 Hgb 12.7 L (14.0-18.0) g/dL Hct 40.3 L (42.0-52.0) % MCV 95.0 (80-100) fl MCH 30.0 (26-34) pg MCHC 31.5 L (32-36) g/dl RDW 13.9 (11.5-14.5) % Plt Count 214 (150-375) k/mm3 MPV 9.1 (7.4-10.4) fl Immature Gran % (Auto) 0.4 (0-0.5) % Neut % (Auto) 63.7 (45.5-73.1) % Lymph % (Auto) 26.9 (18.3-44.2) % [place] % (Auto) 6.8 (2.6-8.5) % Eos % (Auto) 1.3 (0-4.4) % Baso % (Auto) 0.9 (0.2-1.2) % Lymph # (Auto) 1.85 (0.9-3.2) K/mm3 [place] # (Auto) 0.5 (0.1-0.6) K/mm3 Eos # (Auto) 0.1 (0-0.3) K/mm3 Baso # (Auto) 0.1 (0.0-0.1) K/mm3 Abs Immat Gran (auto) 0.03 (0.00-0.031) K/mm3 Absolute Neuts (auto) 4.4 (1.3-6.7) K/mm3 Absolute Nucleated RBC 0.000 (0.0-0.012) K/mm3 Nucleated RBC % 0.0 (0.0-0.2) % Sodium 137 (137-145) mmol/L Potassium 3.9 (3.4-5.0) mmol/L Chloride 105 (98-107) mmol/L Carbon Dioxide 27 (22-30) mmol/L Anion Gap 5 (4-12) mmol/L BUN 15 D (9-20) mg/dL Creatinine 0.90 (0.7-1.3) mg/dL Estim Creat Clear Calc 58 ml/min Estimated GFR > 60 (59 - ) Glucose 86 (65-110) mg/dL Calcium 8.3 L (8.4-10.2) mg/dL Magnesium 2.0 (1.6-2.3) mg/dL Total Bilirubin 0.5 (0.2-1.3) mg/dL AST 24 (17-59) U/L ALT 11 (6-50) U/L Alkaline Phosphatase 75 (38-126) U/L Total Protein 6.9 (6.3-8.2) g/dL Albumin 3.7 (3.5-5.1) g/dL Urine Color Yellow (Yellow) Urine Appearance Clear (Clear) Urine pH 7.0 (5.0-9.0) Ur Specific [place] 1.020 (1.001-1.035) Urine Protein Negative (Negative) mg/dL Urine Glucose (UA) Negative (Negative) mg/dL Urine Ketones Negative (Negative) mg/dL Ur Blood (Man) Negative (Negative) Urine Nitrate Negative (Negative) Urine Bilirubin Negative (Negative) Urine Urobilinogen 1.0 (<2.0) mg/dL Leukocyte Esterase Rfl Trace H (Negative) MEGAN/UL Urine RBC 3-5 H (0-2) /hpf Urine WBC 0-5 (0-3) /hpf Ur Squamous Epith Cells None seen (Few) /hpf Urine Bacteria None seen /hpf Urine Casts 0-2 Salicylates < 1.0 L (2-20) mg/dL Urine Opiates Screen Negative (Negative) Urine Methadone Screen Negative (Negative) Acetaminophen < 10 L (10-30) ug/mL Ur Barbiturates Screen Negative (Negative) Ur Phencyclidine Scrn Negative (Negative) Ur Amphetamine Screen Negative (Negative) U Benzodiazepines Scrn Negative (Negative) Urine Cocaine Screen Positive A (Negative) U Cannabinoids Screen Negative (Negative) Ethyl Alcohol < 10 (<10) mg/dL <Faye العلي MD - Last Filed: 02/17/25 13:08> Discharge Plan Discharge Clinical Impression: Headache, Hallucinations, Normocytic anemia, Hematuria, microscopic, Cocaine abuse <Sidney Davis MD - Last Filed: 02/13/25 05:54> Patient Disposition: Home <Sidney Davis MD - Last Filed: 02/13/25 05:54> Condition: Stable <Sidney Davis MD - Last Filed: 02/13/25 05:54> Instructions: Antibiotic Form, Cocaine Use Disorder (ED), Acute Headache (ED), Anemia (ED), Hallucinations (ED) <Sidney Davis MD - Last Filed: 02/13/25 05:54> Additional Instructions: Your use of cocaine is concerning, particularly at your age. Recommend cessation/stopping. Follow-up with primary care physician. If you do not have 1 the name of the doctors listed below. Return to the emergency department any new or worsening symptoms. <Sidney Davis MD - Last Filed: 02/13/25 05:54> Patient Language: Czech <Sidney Davis MD - Last Filed: 02/13/25 05:54> Prescriptions: No Action naproxen 500 mg tablet 500 mg PO BID PRN (Reason: Pain (Scale Score 1-3)) amoxicillin-pot clavulanate 875-125 mg tablet 1 tablet PO Q12H Qty: 14 0RF prednisone 20 mg tablet 40 mg PO DAILY Qty: 10 0RF albuterol sulfate 90 mcg/actuation HFA aerosol inhaler 1 inh inhalation QID PRN (Reason: shortness of breath or wheezing) Qty: 6.7 0RF lidocaine 5 % adhesive patch,medicated 1 patch topical DAILY Qty: 15 0RF Rx Instructions: leave on most painful area for up to 12 hrs naproxen 500 mg tablet 500 mg PO BID PRN (Reason: pain) Qty: 20 0RF azithromycin 250 mg tablet 250 mg PO DAILY 4 Days Qty: 4 0RF Rx Instructions: start on day 2 of therapy prednisone 20 mg tablet 40 mg PO DAILY 4 Days Qty: 8 0RF albuterol sulfate 90 mcg/actuation HFA aerosol inhaler 2 puff inhalation QID PRN (Reason: shortness of breath or wheezing) Qty: 8.5 0RF acetaminophen 500 mg capsule 500 mg PO Q6H PRN (Reason: pain) Qty: 14 0RF amoxicillin 500 mg capsule 1,000 mg PO Q8H 5 Days Qty: 30 0RF azithromycin 250 mg tablet See Rx Instructions .ROUTE .COMPLEX Qty: 6 0RF Rx Instructions: For 250 mg dose pack: take 500 mg today (day 1), then 250 mg for 4 days (days 2-5) benzonatate 200 mg capsule 200 mg PO TID PRN (Reason: cough) Qty: 20 0RF <Sidney Davis MD - Last Filed: 02/13/25 05:54> Follow-up/Referrals: PHYSICIAN,CASH APPLICATION REPRESENTATIVE [Primary Care Provider, Internal Medicine] Abilio Hendrix MD [Physician, Family Practice] <Sidney Davis MD - Last Filed: 02/13/25 05:54> Time of Disposition: 11:35 <Sidney Davis MD - Last Filed: 02/13/25 05:54> 11:35 <Faye العلي MD - Last Filed: 02/17/25 13:08>
[2025-02-13 06:00] VITALS: BP 132/79; PULSE 58; RESP 16; O2SAT 98
[2025-02-13 06:37] LABS: Hematocrit 40.3 % (42.0-52.0); Hemoglobin 12.7 g/dL (14.0-18.0); Immature Granulocyte Percent A 0.4 % (0-0.5); Lymphocytes Absolute Auto 1.85 K/mm3 (0.9-3.2); Mean Corpuscular HGB Conc 31.5 g/dl (32-36); Mean Corpuscular Hemoglobin 30.0 pg (26-34); Mean Corpuscular Volume 95.0 fl (80-100); Nucleated Red Blood Cells Absolute Auto 0.000 K/mm3 (0.0-0.012); Nucleated Red Blood Cells Perc 0.0 % (0.0-0.2); Platelet Count Result 214 k/mm3 (150-375); Red Blood Count 4.24 M/mm3 (4.6-6.20); White Blood Count 6.9 K/mm3 (4.5-10.0)
[2025-02-13 06:58] LABS: Alanine Aminotransferase 11 U/L (6-50); Albumin Level 3.7 g/dL (3.5-5.1); Alkaline Phosphatase 75 U/L (38-126); Anion Gap 5 mmol/L (4-12); Aspartate Amino Transferase 24 U/L (17-59); Bilirubin,Total 0.5 mg/dL (0.2-1.3); Blood Urea Nitrogen 15 mg/dL (9-20); Calcium 8.3 mg/dL (8.4-10.2); Carbon Dioxide 27 mmol/L (22-30); Chloride 105 mmol/L (98-107); Estimated CRCL calculation 58 ml/min; Estimated Glomerular Filt Rate > 60; Glucose 86 mg/dL (65-110); Magnesium 2.0 mg/dL (1.6-2.3); Potassium 3.9 mmol/L (3.4-5.0); Sodium 137 mmol/L (137-145); Total Protein 6.9 g/dL (6.3-8.2)
[2025-02-13 06:59] LABS: Acetaminophen < 10 ug/mL (10-30); Salicylate < 1.0 mg/dL (2-20)
--- NOTE | 2025-02-13 07:27 | PC.NURSE ---
attempted to obtain a urine sample at this time, patient yelled and swung arms. unable to obtain urine at this time
[2025-02-13 09:29] LABS: Add Urine Microscopic? YES; Appearance Urine Clear (Clear); Glucose Urine UA Negative (Negative); Leukocyte Esterase Ur Trace LEU/UL (Negative); Nitrate Urine Negative (Negative); Non Pathogenic Casts 0-2; Specific Grav Ur 1.020 (1.001-1.035)
[2025-02-13 11:24] LABS: Cannabinoid Screen Urine Negative (Negative)
--- NOTE | 2025-02-13 18:19 | PCCCNOTE ---
Called to the ED to discuss with pt transportation home. He is D/C'd from the ED and has no ride home. Pt. was given 2 bus tokens and security was going to assist him to the bus stop.
== END 2025-02-13 11:43 | disposition home or self-care (01) ==
PROVIDERS: Emergency Medicine; Emergency Provider Student in an Organized Health Care Education/Training Program
DX: R51.9 Headache, unspecified (principal); R44.3 Hallucinations, unspecified; D64.9 Anemia, unspecified; R31.29 Other microscopic hematuria; F14.10 Cocaine abuse, uncomplicated; I50.9 Heart failure, unspecified; M19.90 Unspecified osteoarthritis, unspecified site; F41.9 Anxiety disorder, unspecified; F17.210 Nicotine dependence, cigarettes, uncomplicated; F32.A Depression, unspecified; Z96.652 Presence of left artificial knee joint; Z86.73 Personal history of transient ischemic attack (TIA), and cerebral infarction without residual deficits
CPT/HCPCS: 36415; 70450; 71045; 80053; 80143; 80179; 80307; 81001; 82077; 83735; 85025; 99284

== ENCOUNTER 2025-02-20 19:55 | Emergency (ER) | payer MEDICARE, MEDICAID, SELFPAY ==
[2025-02-20] VITALS (12 sets, daily range): BP systolic 105–135; BP diastolic 53–72; PULSE 70–86; RESP 13–19; TEMP 36.8; O2SAT 95–100
--- NOTE | ~2025-02-20 | XR_ITS ---
XR chest 1V INDICATION:r/o cva . REFERENCE: None FINDINGS: A single AP of the chest demonstrates normal heart size. The lungs are clear. There is no evidence of pneumothorax or pleural effusion. IMPRESSION: No acute pulmonary findings. Reviewed, dictated and finalized at location S.
--- NOTE | ~2025-02-20 | CT_ITS ---
CT brain wo con HISTORY:r/o cva, HX STROKE , DROOLING COMPARISON: None. TECHNIQUE: Axial images were obtained of the head without intravenous contrast. FINDINGS: No acute intracranial hemorrhage, mass effect or midline shift. No extra-axial fluid collections. Chronic infarct within the left MCA territory is noted.Visualized paranasal sinuses and mastoid air cells are clear. IMPRESSION: Chronic infarct within the left MCA territory. No acute intracranial hemorrhage, mass effect or midline shift. All CT scans at this facility are performed using low dose modulation techniques as appropriate to perform exam including the following: automated exposure control; use of iterative reconstruction technique; adjustment of the mA and/or kV according to patient size (this includes techniques or standardized protocols for targeted exams where dose is matched to indication/reason for exam). Reviewed, dictated and finalized at location S. IMPRESSION: Chronic infarct within the left MCA territory. No acute intracranial hemorrhage, mass effect or midline shift. All CT scans at this facility are performed using low dose modulation techniqu es as appropriate to perform exam including the following: automated exposure c ontrol; use of iterative reconstruction technique; adjustment of the mA and/or kV according to patient size (this includes techniques or standardized protocol s for targeted exams where dose is matched to indication/reason for exam).
--- OUTSIDE RECORDS SUMMARY | 2025-02-20 20:36 | XMS_ITS | Encounter Summary ---
Author Organization [facility] Address [address] [place] [address] Phone Care Team Providers Care Sports Activities Foul Judge Name Role Phone Yaw Sol MD Primary Care Provider [phone] Provider, Unknown Primary Care Provider Unavaila ble Provider, None Primary Care Provider Unavailabl e Provider, Unknown Unavailable Unavailable Reason for Visit * Reason Comments Medication Refill Encounter Details Date Type Department Care Team (Late st Contact Info) Description 06/25/2022 Refill [facility] - Family Medicine [facility] [address] [place] [id number] Yaw Sol MD [address] [place] [address] Medication Refill Social History Tobacco Use Types [...] Na Bustamante RN - 06/28/2022 8:21 AM DIRECTOR OF INFORMATICS Patient needs appointment. Medication failed the protocol, [...] 90 days and meeting all other requirements CTOR OF INFORMATICS documented in this encounter Plan of Treatment [...] documented as of this encounter Care Teams Sports Activities Foul Judge Relationship Specialty Start Date End Date Yaw Sol MD PCP - General Family Medicine 06/18/20 10/18/22 Provider, Unknown UNKNOWN PCP - General 10/23/22 04/10/23 Provider, None [place] PCP - General 04/11/23 Provider, Unknown UNKNOWN 04/11/23 documented as of this encounter
--- OUTSIDE RECORDS SUMMARY | 2025-02-20 20:36 | XMS_ITS | Clinical Summary ---
Author Organization [facility] Address [address] [place] [address] Care Team Providers Care Instructional Systems Design Consultant Name Role Phone Unavailable Primary Care Provider Unavailabl e Source Comments [facility],non-owned Affiliates and Associated Physician Practices is amultiple site organization consisting of ambulatory clinics and hospital sitesin [place], [place], [place] and [place]. This disclosure is being madepursuant to the Care Everywhere program and may not contain all information available regarding this patient. Last updated 18.[facility] [employer] Allergies No known active allergies Medications * [...] on file Legal Sex Male 4:51 PM MARKET ANALYST Gender Identity Not on file Sexual Orientation Not on file Last Filed Vital Signs Vital Sign Reading Time Taken Comments Blood Pressure 116/62 06/06/2019 7:10 AM MARKET ANALYST Pulse 61 06/06/2019 7:10 AM MARKET ANALYST Temperature 36.1 C (96.9 F) 06/06/2019 7:10 AM MARKET ANALYST Respiratory Rate 20 06/06/2019 10:14 AM MARKET ANALYST Oxygen Saturation 99% 06/06/2019 7:10 AM MARKET ANALYST Inhaled Oxygen Concentration - - Weight 77.1 kg (170 lb) 06/06/2019 7:10 AM MARKET ANALYST Height 167.6 cm (5' 6) 06/06/2019 7:10 AM MARKET ANALYST Body Mass Index 27.44 06/06/2019 7:10 AM MARKET ANALYST Plan of Treatment Health Maintenance Due Date [...]
--- OUTSIDE RECORDS SUMMARY | 2025-02-20 20:36 | XMS_ITS | Clinical Summary ---
Author Organization [facility] Address [address] [address] Phone Care Team Providers Care Open Hearth Laborer Name Role Phone Provider, None Primary Care [...] Lnp-s, Pf, 3 0 Mcg/0.3 Ml Dose (TickPick) 06/05/2021 TDAP Vaccine 06/02/2020,01/02/2019,12/08/2016 Tuberculin Skin Test; [...] years) (1 of 2 - PCV) 12/13/1970 Medicare Initial AWV [id number] 07/01/1991 Cologuard 12/13/1996 Colonoscopy 12/13/1996 Colorectal Cancer Screening 12/13/1996 Immunochemical Fecal Occult Blood 12/13/1996 Zoster Immunization (1 of 2) 12/13/2001 Respiratory Syncytial Virus (RSV) Immunization (Adult) (1 - Risk 60-74 years 1-dose series) 2011 Influenza Immunization (#1) 2024 05/24/2018 SARS-COV-2 Immunization [...] age to complete this topic Insurance [place]ID [place] MEDICARE C [employer] MEDICARE C WELL[employer]ARE Advance Directives * Full Code (Latest Code Status on File) Date Activated Date Inactivated Comments 11/26/2020 10:26 AM 07/22/2021 4:56 AM Care Teams Open Hearth Laborer Relationship Specialty Start Date End Date Provider, None [place] PCP - General 04/11/23 Provider, Unknown UNKNOWN 04/11/23
--- OUTSIDE RECORDS SUMMARY | 2025-02-20 20:36 | XMS_ITS | Encounter Summary ---
Author Organization [facility] Address [address] [place] [address] Phone Care Team Providers Care Party Planner Name Role Phone Yaw Sol MD Primary Care Provider Provider, Unknown Primary Care Provider Unavaila ble Provider, None Primary Care Provider Unavailabl e Provider, Unknown Unavailable Unavailable Lanie Whitaker BORING MACHINE SET UP OPERATOR JIG Unavailable Unavailab le Reason for Visit * Reason Comments Medication Refill Encounter Details Date Type Department Care Team (Late st Contact Info) Description 10/28/2021 Refill [facility] - Family Medicine [facility] [address] [place] [id number] Yaw Sol MD [address] [place] [address] Medication Refill Social History Tobacco Use Types [...] Osifrah Spears 11/12/20 Office Visit Darek Salamanca, IT GENERALIST, CASUALTY CLAIMS SUPERVISOR [facility] Showing recent visits within past 365 days [...] Spears 11/12/20 Office Visit Darek Salamanca APRN, CASUALTY CLAIMS SUPERVISOR [facility] [place] Showing recent visits within past 365 days [...] documented as of this encounter Care Teams Party Planner Relationship Specialty Start Date End Date Yaw Sol MD PCP - General Family Medicine 06/18/20 10/18/22 Provider, Unknown UNKNOWN PCP - General 10/23/22 04/10/23 Provider, None [place] PCP - General 04/11/23 Provider, Unknown UNKNOWN 04/11/23 Lanie Whitaker LSW [place] Sheet Metal Assembler And Riveter 01/26/21 12/17/21 documented as of this encounter
--- OUTSIDE RECORDS SUMMARY | 2025-02-20 20:36 | XMS_ITS | Encounter Summary ---
Author Organization [facility] Address [address] [place] [address] Phone Care Team Providers Care Audio Visual Collections Coordinator Name Role Phone Yaw Sol MD Primary Care Provider [phone] Provider, Unknown Primary Care Provider Unavaila ble Provider, None Primary Care Provider Unavailabl e Provider, Unknown Unavailable Unavailable Lanie Whitaker Unavailable Unavailab le Reason for Visit * Reason Comments Medication Refill Encounter Details Date Type Department Care Team (Late st Contact Info) Description 11/27/2021 Refill [facility] - Family Medicine [facility] [address] [place] [phone] Darek Salamanca, BUSINESS FUNCTIONAL ANALYST, RUBBER CURER [address] [address] Medication Refill Social History Tobacco Use Types [...] documented as of this encounter Care Teams Audio Visual Collections Coordinator Relationship Specialty Start Date End Date Yaw Sol MD PCP - General Family Medicine 06/18/20 10/18/22 Provider, Unknown UNKNOWN PCP - General 10/23/22 04/10/23 Provider, None [place] PCP - General 04/11/23 Provider, Unknown UNKNOWN 04/11/23 Lanie Whitaker LSW [place] Plastics Factory Worker 01/26/21 12/17/21 documented as of this encounter
--- OUTSIDE RECORDS SUMMARY | 2025-02-20 20:37 | XMS_ITS | Encounter Summary ---
Author Organization [facility] Address [address] [place] [address] Phone Care Team Providers Care Business Excellence Manager Name Role Phone Yaw Sol MD Primary Care Provider [phone] Provider, Unknown Primary Care Provider Unavaila ble Provider, None Primary Care Provider Unavailabl e Provider, Unknown Unavailable Unavailable Reason for Visit * Reason Comments Medication Refill Encounter Details Date Type Department Care Team (Late st Contact Info) Description 07/02/2022 Refill [facility] - Family Medicine [facility] [address] [place] [phone] Yaw Sol MD [address] [place] [address] Medication Refill Social History Tobacco Use Types [...] Chey Crane RMA - 07/05/2022 9:19 AM WELLNESS SPA MANAGER Mailed letter NESS SPA MANAGER * Telephone Encounter - Kristina Cotton RN - 07/02/2022 5:19 PM CST Needs OV with PCP NESS SPA MANAGER * Telephone Encounter - Kristina Cotton RN [...] LDL, HDLCHOLESTE, CHOLESTEROL, TRIGLYCRIDES, VLDL, CHDL, HDLNON NESS SPA MANAGER documented in this encounter Plan of Treatment [...] as of this encounter Care Teams Business Excellence Manager Relationship Specialty Start Date End Date Yaw Sol MD PCP - General Family Medicine 06/18/20 10/18/22 Provider, Unknown UNKNOWN PCP - General 10/23/22 04/10/23 Provider, None [place] PCP - General 04/11/23 Provider, Unknown UNKNOWN 04/11/23 documented as of this encounter
--- OUTSIDE RECORDS SUMMARY | 2025-02-20 20:37 | XMS_ITS | Encounter Summary ---
Author Organization [facility] Address [address] [place] [address] Phone Care Team Providers Care High Pressure Firer Name Role Phone Yaw Sol MD Primary Care Provider [phone] Provider, Unknown Primary Care Provider Unavaila ble Provider, None Primary Care Provider Unavailabl e Provider, Unknown Unavailable Unavailable Reason for Visit * Reason Comments Medication Refill Encounter Details Date Type Department Care Team (Late st Contact Info) Description 07/31/2022 Refill [facility] Family [facility] [address] [place] [phone] Yaw Sol MD [address] [place] [address] Medication Refill Social History Tobacco Use Types [...] documented as of this encounter Care Teams High Pressure Firer Relationship Specialty Start Date End Date Yaw Sol MD PCP - General Family Medicine 06/18/20 10/18/22 Provider, Unknown UNKNOWN PCP - General 10/23/22 04/10/23 Provider, None [place] PCP - General 04/11/23 Provider, Unknown UNKNOWN 04/11/23 documented as of this encounter
--- OUTSIDE RECORDS SUMMARY | 2025-02-20 20:37 | XMS_ITS | Encounter Summary ---
Author Organization [facility] Address [address] [place] [address] Phone Care Team Providers Care Supervisor Aircraft Maintenance Name Role Phone Yaw Slo MD Primary Care Provider [phone] Provider, Unknown Primary Care Provider Unavaila ble Provider, None Primary Care Provider Unavailabl e Provider, Unknown Unavailable Unavailable Reason for Visit * Reason Comments Medication Refill Encounter Details Date Type Department Care Team (Late st Contact Info) Description 08/27/2022 Refill [facility] Family Medicine [facility] [address] [place] [phone] Yaw Sol MD [address] [place] [address] Medication Refill Social History Tobacco Use Types [...] Provider Dept 09/10/22 Appointment Yaw Sol MD [facility] Showing future appointments within next 90 [...] documented as of this encounter Care Teams Supervisor Aircraft Maintenance Relationship Specialty Start Date End Date Yaw Sol MD PCP - General Family Medicine 06/18/20 10/18/22 Provider, Unknown UNKNOWN PCP - General 10/23/22 04/10/23 Provider, None [place] PCP - General 04/11/23 Provider, Unknown UNKNOWN 04/11/23 documented as of this encounter
--- OUTSIDE RECORDS SUMMARY | 2025-02-20 20:37 | XMS_ITS | Clinical Summary ---
Author Organization [facility] Address [address] [place] [address] Care Team Providers Care Vendor Analyst Name Role Phone Miscellaneous, Not In File [...] reports being admitted 1 month ago at [facility] for CVA. Will need to obtain records. [...] may need MRI to r/o new CVA. MERCHANDISE STOCKER consulted. Will need to obtain records from patient's admission 1month ago at [facility]. Immunizations Immunization Administration Dates Next Due Tdap 01/02/2019,12/08/2016 Surgical History Surgery Date Site/Laterality Comments JOINT REPLACEMENT Left knee BACK SURGERY Medical History Medical History Date Comments Arthritis COPD (chronic obstructive pulmonary disease) Stroke ([facility]) Social History Tobacco [...] on file Legal Sex Male 7:03 PM PRIMARY COUNSELOR Gender Identity Not on file Sexual Orientation [...] PELVIS W CONTRAST ED 05/24/2020 6:38 PM PRIMARY COUNSELOR from Last 3 Months or Most Recently Relevant to Health Maintenance Results * CT Abdomen Pelvis W Contrast (05/24/2020 6:38 PM PRIMARY COUNSELOR) Anatomical Region Laterality Modality Body N/A Computed Tomogra phy 05/24/2020 6:28 PM PRIMARY COUNSELOR Impressions 05/24/2020 6:52 PM PRIMARY COUNSELOR No acute inflammatory process is noted. No cholecystitis. Normal appendix. Diverticulosis without diverticulitis THIS IS AN ELECTRONICALLY VERIFIED FINAL REPORT 05/24/2020 6:48 PM - Electronically signed by Alvino Cruz M.D. NC: JESSIE Report ID: [id number] Reading Location: [id number] [facility] 05/24/2020 6:52 PM PRIMARY COUNSELOR [facility] Imaging Result Name: BENITO CISSE Ordering Phys: TRI GÓMEZ Age: 69 Date of : 1950 Accession Number: [id number] Date of Service: 05/24/2020 Gender: M EXAM [...] Procedure Note Alvino Cruz MD - 05/24/2020 [facility] Imaging Result Name: BENITO CISSE Ordering Phys: TRI GÓMEZ Age: 69 Date of : 1950 Accession Number: [id number] Date of Service: 05/24/2020 Gender: M EXAM [...] Alvino Cruz M.D. NC: JESSIE Report ID: [id number] Reading Location: [id number] Tri Gómez MD IMG CT PROCEDURES F inal Result from Last 3 Months or Most Recently Relevant to Health Maintenance Insurance [employer] MEDICARE HMO MEDICARE [employer] [facility] MEDICARE HMO [facility] MEDICARE GENERIC RISK OTHER [facility] [place] [employer] MEDICARE HMO Advance Directives For more information, please contact: [phone] * Full Code (Latest Code Status on [...] 11:22 AM 09/24/2018 5:51 PM Care Teams Vendor Analyst Relationship Specialty [place] [id number] [place] [address] PCP - General Family Medicine 05/24/20 Miscellaneous, Not In File 08/20/18
--- NOTE | 2025-02-20 20:46 | ECG_ITS ---
Test Date: 2025-02-20 21:24:47 Measurements Intervals Kn[place]ocker Rate: 72 P: 59 DE: 187 QRS: 70 QRSD: 85 T: 79 QT: 383 QTc: 420 Interpretive Statements SINUS RHYTHM NORMAL ECG Compared to ECG 01/29/2025 00:16:44 First degree AV block no longer present Electronically Signed On 02-21-2025 05:10:08 CDT by Cody Stevens D.O.
[2025-02-20 20:53] LABS: Hematocrit 41.5 % (42.0-52.0); Hemoglobin 13.2 g/dL (14.0-18.0); Immature Granulocyte Percent A 0.3 % (0-0.5); Lymphocytes Absolute Auto 1.95 K/mm3 (0.9-3.2); Mean Corpuscular HGB Conc 31.8 g/dl (32-36); Mean Corpuscular Hemoglobin 29.8 pg (26-34); Mean Corpuscular Volume 93.7 fl (80-100); Nucleated Red Blood Cells Absolute Auto 0.000 K/mm3 (0.0-0.012); Nucleated Red Blood Cells Perc 0.0 % (0.0-0.2); Platelet Count Result 230 k/mm3 (150-375); Red Blood Count 4.43 M/mm3 (4.6-6.20); White Blood Count 5.8 K/mm3 (4.5-10.0)
[2025-02-20 21:07] LABS: Alanine Aminotransferase 14 U/L (6-50); Albumin Level 4.0 g/dL (3.5-5.1); Alkaline Phosphatase 66 U/L (38-126); Anion Gap 7 mmol/L (4-12); Aspartate Amino Transferase 24 U/L (17-59); Bilirubin,Total 0.4 mg/dL (0.2-1.3); Blood Urea Nitrogen 21 mg/dL (9-20); Calcium 8.8 mg/dL (8.4-10.2); Carbon Dioxide 27 mmol/L (22-30); Chloride 106 mmol/L (98-107); Estimated Glomerular Filt Rate > 60; Glucose 123 mg/dL (65-110); INR 1.1; Partial Thromboplastin Time 31.4 Seconds (22.3-36.8); Potassium 4.8 mmol/L (3.4-5.0); Prothrombin Time 14.8 Seconds (11.1-14.7); Sodium 140 mmol/L (137-145); Total Protein 7.5 g/dL (6.3-8.2)
[2025-02-20 21:18] LABS: Troponin I < 0.012 ng/mL (0.000-0.034)
--- NOTE | 2025-02-20 22:05 | ED.GENADULT ---
HPI - General Adult General Chief complaint: Unspecified Stated complaint: BLE pain and drooling on R side of mouth Time Seen by Provider: 02/20/25 21:16 History of Present Illness HPI narrative: Patient is a 74-year-old male who presents to the ER with concerns of a new stroke. He refuses to answer questions at time of examination, but will shake his head yes or no. Patient denies any recent fevers, headache, or nausea and vomiting. He told the nurse that he had bilateral lower extremity pain. 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 He is well known to medical staff in this emergency department. Related Data Home Medications ?Medication ?Instructions ?Recorded ?Confirmed ?Last Taken ?Type naproxen 500 mg tablet 500 mg PO BID PRN Pain (Scale 12/01/23 12/01/23 Unknown History Score 1-3) Allergies Allergy/AdvReac Type Severity Reaction Status Date / Time No Known Allergies Allergy Verified 01/28/25 23:03 Review of Systems Review of Systems: All systems reviewed & are unremarkable except as noted in HPI and below PMFSH Past Medical History Medical History Cocaine abuse Tobacco abuse Normocytic anemia History of depression History of anxiety History of CHF (congestive heart failure) Arthritis Surgical History Surgical History History of left knee replacement Social History Social History Smoking packs per day: 1 Smoking cigarettes per day: 20.0 Smoking status: Current every day smoker Alcohol intake: never Substance use: current Substance use type: crack/cocaine Last use: POSITIVE LABS ON ADMISSION Do You Feel Safe in your Home?: Yes Lack of Transportation: YES Lack of Food: Sometimes True Current Housing: I Do Not Have Housing Concerned About Future Housing: YES Difficulty Paying Gas/Electric Bills: YES Difficulty Paying for Meds: YES Currently Unemployed: YES Education: Don't Know Difficulty w/ Childcare or Family Care: No Gender identity (if verbalized by the patient): Male Spiritual care concerns: No Exam Narrative: GENERAL: Well appearing, well-nourished, non-toxic, in no acute distress. HEAD: Normocephalic, atraumatic. NECK: Supple. No adenopathy, no masses. RESPIRATORY: Airway patent, respirations nonlabored. Clear to auscultation bilaterally, no rales, rhonchi, wheezing. CARDIOVASCULAR: Regular rate and rhythm without murmurs, rubs, or gallops. Peripheral pulses 2+ and equal bilaterally. No swelling to lower extremities. ABDOMINAL: Soft, nontender, nondistended, no hepatosplenomegaly. Normoactive BS. MUSCULOSKELETAL: Moves all extremities. Strength/ROM intact without gross deformities. SKIN: Warm, dry, normal color. No rashes. NEURO: Refuses to answer questions verbally, but will nod head yes and no. No ataxic movements. Squeezing eyes shut. Course Vital Signs Vital signs: Vital Signs Temperature 36.8 C 02/20/25 19:58 Pulse Rate 86 02/20/25 19:58 Respiratory Rate 18 02/20/25 19:58 Blood Pressure 135/62 02/20/25 19:58 Pulse Oximetry 98 02/20/25 19:58 Oxygen Delivery Room Air 02/20/25 19:58 Temperature 36.8 C 02/20/25 19:58 Pulse Rate 78 02/20/25 20:45 Respiratory Rate 18 02/20/25 19:58 Blood Pressure 135/62 02/20/25 19:58 Pulse Oximetry 98 02/20/25 19:58 Oxygen Delivery Room Air 02/20/25 19:58 Medical Decision Making MDM Narrative Medical decision making narrative: Patient is a 74-year-old male who presents to the ER with concerns of a new stroke. He refuses to answer questions at time of examination, but will shake his head yes or no. Patient denies any recent fevers, headache, or nausea and vomiting. He told the nurse that he had bilateral lower extremity pain. 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 He is well known to medical staff in this emergency department. Labs Ordered: CBC, CMP, PTT, INR, troponin Imaging Ordered: Chest x-ray, CT brain Medications Ordered: Toradol 15 mg IV Results: Patient's CT head scan indicates Chronic infarct within the left MCA territory. No acute intracranial hemorrhage, mass effect or midline shift. Diagnosis: Bilateral lower extremity pain Patient Education/Shared MDM: * patient had a proBNP level drawn in December 2024 Results of lab work and imaging shared with patient. He continues to refuse to answer questions. Patient strongly advised to maintain hydration status upon discharge and follow-up with his PCP as soon as possible. He will not be discharged home with any new prescriptions . Strict return precautions provided. Patient verbalized understanding and is in agreement with plan. Vital signs stable at time of discharge. All questions answered. Differential Diagnosis Differential Diagnosis: Subdural hematoma, headache, CHF Vital Signs Vital Signs: Vital Signs Temperature 36.8 C 02/20/25 19:58 Pulse Rate 86 02/20/25 19:58 Respiratory Rate 18 02/20/25 19:58 Blood Pressure 135/62 02/20/25 19:58 Pulse Oximetry 98 02/20/25 19:58 Oxygen Delivery Room Air 02/20/25 19:58 Temperature 36.8 C 02/20/25 19:58 Pulse Rate 78 02/20/25 20:45 Respiratory Rate 18 02/20/25 19:58 Blood Pressure 135/62 02/20/25 19:58 Pulse Oximetry 98 02/20/25 19:58 Oxygen Delivery Room Air 02/20/25 19:58 Lab Data Lab results reviewed: Yes I reviewed the patient's lab results. 02/20/25 20:47 02/20/25 20:47 Labs: Lab Results 02/20/25 Range/Units 20:47 WBC 5.8 (4.5-10.0) K/mm3 RBC 4.43 L (4.6-6.20) M/mm3 Hgb 13.2 L (14.0-18.0) g/dL Hct 41.5 L (42.0-52.0) % MCV 93.7 (80-100) fl MCH 29.8 (26-34) pg MCHC 31.8 L (32-36) g/dl RDW 13.4 (11.5-14.5) % Plt Count 230 (150-375) k/mm3 MPV 8.9 (7.4-10.4) fl Immature Gran % (Auto) 0.3 (0-0.5) % Neut % (Auto) 55.8 (45.5-73.1) % Lymph % (Auto) 33.9 (18.3-44.2) % [place] % (Auto) 7.6 (2.6-8.5) % Eos % (Auto) 1.2 (0-4.4) % Baso % (Auto) 1.2 (0.2-1.2) % Lymph # (Auto) 1.95 (0.9-3.2) K/mm3 [place] # (Auto) 0.4 (0.1-0.6) K/mm3 Eos # (Auto) 0.1 (0-0.3) K/mm3 Baso # (Auto) 0.1 (0.0-0.1) K/mm3 Abs Immat Gran (auto) 0.02 (0.00-0.031) K/mm3 Absolute Neuts (auto) 3.2 (1.3-6.7) K/mm3 Absolute Nucleated RBC 0.000 (0.0-0.012) K/mm3 Nucleated RBC % 0.0 (0.0-0.2) % PT 14.8 H (11.1-14.7) Seconds INR 1.1 APTT 31.4 (22.3-36.8) Seconds Sodium 140 (137-145) mmol/L Potassium 4.8 (3.4-5.0) mmol/L Chloride 106 (98-107) mmol/L Carbon Dioxide 27 (22-30) mmol/L Anion Gap 7 (4-12) mmol/L BUN 21 H (9-20) mg/dL Creatinine 1.15 (0.7-1.3) mg/dL Estim Creat Clear Calc Not Reportable Estimated GFR > 60 (59 - ) Glucose 123 H (65-110) mg/dL Calcium 8.8 (8.4-10.2) mg/dL Total Bilirubin 0.4 (0.2-1.3) mg/dL AST 24 (17-59) U/L ALT 14 (6-50) U/L Alkaline Phosphatase 66 (38-126) U/L Troponin I < 0.012 (0.000-0.034) ng/mL Total Protein 7.5 (6.3-8.2) g/dL Albumin 4.0 (3.5-5.1) g/dL Imaging Data Attestation: I personally reviewed and interpreted this imaging study as follows: Radiologist's impression: Impressions Head CT 02/20/25 21:01 IMPRESSION: Chronic infarct within the left MCA territory. No acute intracranial hemorrhage, mass effect or midline shift. All CT scans at this facility are performed using low dose modulation techniques as appropriate to perform exam including the following: automated exposure control; use of iterative reconstruction technique; adjustment of the mA and/or kV according to patient size (this includes techniques or standardized protocols for targeted exams where dose is matched to indication/reason for exam). Chest X-Ray 02/20/25 21:22 IMPRESSION: No acute pulmonary findings. Discharge Plan Discharge Clinical Impression: Lower extremity pain, bilateral, History of cerebrovascular accident (CVA) due to ischemia Patient Disposition: Home Condition: Stable Instructions: Antibiotic Form, Leg Cramps (ED) Additional Instructions: Please return to the ER with any worsening symptoms. Follow-up with primary care provider as soon as possible for re-evaluation of symptoms. Take all medications as prescribed, including regularly scheduled medications. You may take Tylenol and/or ibuprofen as needed for pain control. Patient Language: New Zealander Prescriptions: No Action naproxen 500 mg tablet 500 mg PO BID PRN (Reason: Pain (Scale Score 1-3)) amoxicillin-pot clavulanate 875-125 mg tablet 1 tablet PO Q12H Qty: 14 0RF prednisone 20 mg tablet 40 mg PO DAILY Qty: 10 0RF albuterol sulfate 90 mcg/actuation HFA aerosol inhaler 1 inh inhalation QID PRN (Reason: shortness of breath or wheezing) Qty: 6.7 0RF lidocaine 5 % adhesive patch,medicated 1 patch topical DAILY Qty: 15 0RF Rx Instructions: leave on most painful area for up to 12 hrs naproxen 500 mg tablet 500 mg PO BID PRN (Reason: pain) Qty: 20 0RF azithromycin 250 mg tablet 250 mg PO DAILY 4 Days Qty: 4 0RF Rx Instructions: start on day 2 of therapy prednisone 20 mg tablet 40 mg PO DAILY 4 Days Qty: 8 0RF albuterol sulfate 90 mcg/actuation HFA aerosol inhaler 2 puff inhalation QID PRN (Reason: shortness of breath or wheezing) Qty: 8.5 0RF acetaminophen 500 mg capsule 500 mg PO Q6H PRN (Reason: pain) Qty: 14 0RF amoxicillin 500 mg capsule 1,000 mg PO Q8H 5 Days Qty: 30 0RF azithromycin 250 mg tablet See Rx Instructions .ROUTE .COMPLEX Qty: 6 0RF Rx Instructions: For 250 mg dose pack: take 500 mg today (day 1), then 250 mg for 4 days (days 2-5) benzonatate 200 mg capsule 200 mg PO TID PRN (Reason: cough) Qty: 20 0RF Follow-up/Referrals: Kaleb Nguyen MD [Physician, Family Practice] Referral Note: Primary care PHYSICIAN,SENIOR BIOINFORMATICS SPECIALIST [Primary Care Provider, Internal Medicine] Time of Disposition: 22:37
[2025-02-20] MEDS: KETOROLAC 15 MG/ML VIAL (*BKC) IV PUSH (22:14)
== END 2025-02-20 22:49 | disposition home or self-care (01) ==
PROVIDERS: Student in an Organized Health Care Education/Training Program; Emergency Provider Registered Nurse
DX: M79.604 Pain in right leg (principal); M79.605 Pain in left leg; I69.320 Aphasia following cerebral infarction; F17.210 Nicotine dependence, cigarettes, uncomplicated; F14.90 Cocaine use, unspecified, uncomplicated
CPT/HCPCS: 36415; 70450; 71045; 80053; 82948; 84484; 85025; 85610; 85730; 93005; 96374; 99284; J1885

== ENCOUNTER 2025-02-22 00:26 | Emergency (ER) | payer MEDICARE, MEDICAID, SELFPAY ==
--- NOTE | ~2025-02-22 | XR_ITS ---
Examination: XR knee RT 3V Clinical History: acute on chronic pain Comparison: 12/20/2024 Technique: 3 views right knee Findings/impression: 1. No fracture, dislocation, or effusion. 2. Severe tricompartmental degenerative changes and osteophytic spurring. 3. Severe medial compartment joint space narrowing. Reviewed, dictated and finalized at location R.
[2025-02-22 00:25] VITALS: BP 136/68; PULSE 76; RESP 16; TEMP 36.5; O2SAT 98
--- NOTE | 2025-02-22 00:35 | ED.EXTPRO ---
HPI - Extremity Problem General Chief complaint: Extremity Problem,Nontraumatic Stated complaint: knee pain Time Seen by Provider: 02/22/25 00:30 History of Present Illness HPI Narrative: 74-year-old male with a history of prior CVA with chronic right-sided deficits and aphasia. History of significant tried car part mental as throat is bilaterally with left total knee arthroplasty and degenerative disease in the right knee. Presents to the emergency department for acute on chronic knee pain. Patient is well-known to this facility. Was here yesterday for similar and had unremarkable workup and escorted out of the department with security as patient was becoming aggressive and refusing to leave. Patient has had multiple visits to the emergency department for acute on chronic knee pain and various other complaints. Patient denies any new injuries or falls. EMS was called to the police department where patient was located complaining of right knee pain. No visible signs of injury trauma. Besides pain he has no other complaints at this time. Did not take anything prior to arrival. No new weakness, chronic right-sided deficits appreciated, answering my questions appropriately. Has history of polysubstance abuse but does not appear intoxicated. Related Data Home Medications ?Medication ?Instructions ?Recorded ?Confirmed ?Last Taken ?Type naproxen 500 mg tablet 500 mg PO BID PRN Pain (Scale 12/01/23 12/01/23 Unknown History Score 1-3) Allergies Allergy/AdvReac Type Severity Reaction Status Date / Time No Known Allergies Allergy Verified 01/28/25 23:03 Review of Systems Review of Systems: As reviewed above in HPI [facility] Past Medical History Medical History Cocaine abuse Tobacco abuse Normocytic anemia History of depression History of anxiety History of CHF (congestive heart failure) Arthritis Surgical History Surgical History History of left knee replacement Social History Social History Smoking packs per day: 1 Smoking cigarettes per day: 20.0 Smoking status: Current every day smoker Alcohol intake: never Substance use: current Substance use type: crack/cocaine Last use: POSITIVE LABS ON ADMISSION Do You Feel Safe in your Home?: Yes Lack of Transportation: YES Lack of Food: Sometimes True Current Housing: I Do Not Have Housing Concerned About Future Housing: YES Difficulty Paying Gas/Electric Bills: YES Difficulty Paying for Meds: YES Currently Unemployed: YES Education: Don't Know Difficulty w/ Childcare or Family Care: No Gender identity (if verbalized by the patient): Male Spiritual care concerns: No Exam Narrative: GENERAL: Well-appearing, well-nourished, and in no acute distress. HEAD: Normocephalic, atraumatic. ENT: Nares clear, no rhinorrhea or epistaxis. Mucous membranes moist. NECK: Supple. CHEST: Clear to auscultation. No respiratory distress. HEART: Regular rate and rhythm. No murmur heard. Normal peripheral pulses. EXTREMITIES: Tenderness to the right proximal tibia on palpation in medial joint line. Chronic valgus deformity to the right knee, otherwise no acute deformities bilaterally. No warmth or erythema. No peripheral edema in either extremity. Left total knee arthroplasty evident. Patient has some restricted range of motion of his right knee secondary to pain and chronic deformity. No difficulties moving the hip or ankle. Left leg without symptoms. DP pulses 2+. Sensation intact. Extremities are warm and dry. SKIN: Warm, dry, no rash. NEURO: No focal deficits. Alert and oriented x3 Course Vital Signs Vital signs: Vital Signs Temperature 36.5 C 02/22/25 00:25 Pulse Rate 76 02/22/25 00:25 Respiratory Rate 16 02/22/25 00:25 Blood Pressure 136/68 02/22/25 00:25 Pulse Oximetry 98 02/22/25 00:25 Oxygen Delivery Room Air 02/22/25 00:25 Temperature 36.5 C 02/22/25 00:25 Pulse Rate 76 02/22/25 00:25 Respiratory Rate 16 02/22/25 00:25 Blood Pressure 136/68 02/22/25 00:25 Pulse Oximetry 98 02/22/25 00:25 Oxygen Delivery Room Air 02/22/25 00:25 MDM - Extremity (Nontraumatic) MDM Narrative Medical decision making narrative: 74-year-old male with a history of prior CVA with chronic right-sided deficits and aphasia. History of significant tried car part mental as throat is bilaterally with left total knee arthroplasty and degenerative disease in the right knee. Presents to the emergency department for acute on chronic knee pain. Patient is well-known to this facility. Was here yesterday for similar and had unremarkable workup and escorted out of the department with security as patient was becoming aggressive and refusing to leave. Patient has had multiple visits to the emergency department for acute on chronic knee pain and various other complaints. Patient denies any new injuries or falls. EMS was called to the police department where patient was located complaining of right knee pain. No visible signs of injury trauma. Besides pain he has no other complaints at this time. Did not take anything prior to arrival. No new weakness, chronic right-sided deficits appreciated, answering my questions appropriately. Has history of polysubstance abuse but does not appear intoxicated. Tenderness to the right proximal tibia on palpation in medial joint line. Chronic valgus deformity to the right knee, otherwise no acute deformities bilaterally. No warmth or erythema. No peripheral edema in either extremity. Left total knee arthroplasty evident. Patient has some restricted range of motion of his right knee secondary to pain and chronic deformity. No difficulties moving the hip or ankle. Left leg without symptoms. DP pulses 2+. Sensation intact. Extremities are warm and dry. Patient is hemodynamically stable. No traumatic injuries or external signs of trauma. Patient is well-known to this facility, thorough evaluation yesterday without any acute findings. X-rays of the right knee were obtained to rule out new injury but without signs of trauma do not suspect any acute findings. Patient given Tylenol. X-rays independently reviewed and interpreted by radiology. No fracture dislocation. Severe tricompartmental arthritis consistent with previous imaging. Patient is safe for discharge home at this time. Discharge Plan Discharge Clinical Impression: Chronic knee pain Patient Disposition: Home Condition: Stable Instructions: Antibiotic Form, Knee Pain (ED), Arthralgia (ED) Patient Language: Gibraltarian Prescriptions: No Action naproxen 500 mg tablet 500 mg PO BID PRN (Reason: Pain (Scale Score 1-3)) amoxicillin-pot clavulanate 875-125 mg tablet 1 tablet PO Q12H Qty: 14 0RF prednisone 20 mg tablet 40 mg PO DAILY Qty: 10 0RF albuterol sulfate 90 mcg/actuation HFA aerosol inhaler 1 inh inhalation QID PRN (Reason: shortness of breath or wheezing) Qty: 6.7 0RF lidocaine 5 % adhesive patch,medicated 1 patch topical DAILY Qty: 15 0RF Rx Instructions: leave on most painful area for up to 12 hrs naproxen 500 mg tablet 500 mg PO BID PRN (Reason: pain) Qty: 20 0RF azithromycin 250 mg tablet 250 mg PO DAILY 4 Days Qty: 4 0RF Rx Instructions: start on day 2 of therapy prednisone 20 mg tablet 40 mg PO DAILY 4 Days Qty: 8 0RF albuterol sulfate 90 mcg/actuation HFA aerosol inhaler 2 puff inhalation QID PRN (Reason: shortness of breath or wheezing) Qty: 8.5 0RF acetaminophen 500 mg capsule 500 mg PO Q6H PRN (Reason: pain) Qty: 14 0RF amoxicillin 500 mg capsule 1,000 mg PO Q8H 5 Days Qty: 30 0RF azithromycin 250 mg tablet See Rx Instructions .ROUTE .COMPLEX Qty: 6 0RF Rx Instructions: For 250 mg dose pack: take 500 mg today (day 1), then 250 mg for 4 days (days 2-5) benzonatate 200 mg capsule 200 mg PO TID PRN (Reason: cough) Qty: 20 0RF Follow-up/Referrals: PHYSICIAN,MAXILLOFACIAL PROSTHETICS DENTIST [Primary Care Provider, Internal Medicine] Time of Disposition: 02:48
--- OUTSIDE RECORDS SUMMARY | 2025-02-22 00:38 | XMS_ITS | Encounter Summary ---
Author Organization [facility] Address [address] [place] [address] Phone Care Team Providers Care Renewals Manager Name Role Phone Yaw Sol MD Primary Care Provider [phone] Provider, Unknown Primary Care Provider Unavaila ble Provider, None Primary Care Provider Unavailabl e Provider, Unknown Unavailable Unavailable Lanie Whitaker Unavailable Unavailab le Reason for Visit * Reason Comments Medication Refill Encounter Details Date Type Department Care Team (Late st Contact Info) Description 11/27/2021 Refill [facility] - Family Medicine [facility] [address] [place] [id number] Darek Salamanca, OXYGEN EQUIPMENT TECHNICIAN, PARTS ROOM ASSISTANT [address] [id number] Medication Refill Social History Tobacco Use Types [...] documented as of this encounter Care Teams Renewals Manager Relationship Specialty Start Date End Date Yaw Sol MD PCP - General Family Medicine 06/18/20 10/18/22 Provider, Unknown UNKNOWN PCP - General 10/23/22 04/10/23 Provider, None [place] PCP - General 04/11/23 Provider, Unknown UNKNOWN 04/11/23 Lanie Whitaker LSW [place] Endoscopy Tech 01/26/21 12/17/21 documented as of this encounter
--- OUTSIDE RECORDS SUMMARY | 2025-02-22 00:38 | XMS_ITS | Encounter Summary ---
Author Organization [facility] Address [address] [place] [address] Phone Care Team Providers Care Veterans Service Representative Name Role Phone Yaw Sol MD Primary Care Provider Provider, Unknown Primary Care Provider Unavaila ble Provider, None Primary Care Provider Unavailabl e Provider, Unknown Unavailable Unavailable Reason for Visit * Reason Comments Medication Refill Encounter Details Date Type Department Care Team (Late st Contact Info) Description 06/25/2022 Refill [facility] [address] [place] [id number] Yaw Sol MD [address] [place] [address] Medication Refill Social History Tobacco Use Types [...] Bustamante RN - 06/28/2022 8:21 AM SERVICE ORDER EXPEDITER Patient needs appointment. Medication failed the protocol, [...] days and meeting all other requirements ICE ORDER EXPEDITER documented in this encounter Plan of Treatment [...] documented as of this encounter Care Teams Veterans Service Representative Relationship Specialty Start Date End Date Yaw Sol MD PCP - General Family Medicine 06/18/20 10/18/22 Provider, Unknown UNKNOWN PCP - General 10/23/22 04/10/23 Provider, None [place] PCP - General 04/11/23 Provider, Unknown UNKNOWN 04/11/23 documented as of this encounter
--- OUTSIDE RECORDS SUMMARY | 2025-02-22 00:38 | XMS_ITS | Encounter Summary ---
Author Organization [facility] Address [address] [place] [address] Phone Care Team Providers Care Functional Architect Name Role Phone Yaw Sol MD Primary Care Provider [phone] Provider, Unknown Primary Care Provider Unavaila ble Provider, None Primary Care Provider Unavailabl e Provider, Unknown Unavailable Unavailable Reason for Visit * Reason Comments Medication Refill Encounter Details Date Type Department Care Team (Late st Contact Info) Description 08/27/2022 Refill [facility] - [facility] [address] [place] [id number] Yaw Sol MD [address] [place] [address] Medication Refill Social History Tobacco Use Types [...] Provider Dept 09/10/22 Appointment Yaw Sol MD [facility] Showing future appointments within next [...] documented as of this encounter Care Teams Functional Architect Relationship Specialty Start Date End Date Yaw Sol MD PCP - General Family Medicine 06/18/20 10/18/22 Provider, Unknown UNKNOWN PCP - General 10/23/22 04/10/23 Provider, None [place] PCP - General 04/11/23 Provider, Unknown UNKNOWN 04/11/23 documented as of this encounter
--- OUTSIDE RECORDS SUMMARY | 2025-02-22 00:38 | XMS_ITS | Clinical Summary ---
Author Organization [facility] Address [address] [place] [address] Care Team Providers Care Electrical Checkout Mechanic Name Role Phone Miscellaneous, Not In File [...] reports being admitted 1 month ago at [facility] for CVA. Will need to obtain records. [...] may need MRI to r/o new CVA. MASTER TAX ADVISOR consulted. Will need to obtain records from patient's admission 1month ago at [facility]. 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 No cholecystitis. Normal appendix. Diverticulosis without diverticulitis THIS IS AN ELECTRONICALLY VERIFIED FINAL REPORT 05/24/2020 6:48 PM - Electronically signed by Alvino Cruz M.D. NC: JESSIE Report ID: [id number] Reading Location: [id number] [facility] 05/24/2020 6:52 PM EMBEDDED SYSTEMS ENGINEER [facility] Imaging Result Name: BENITO CISSE Ordering Phys: TRI GÓMEZ Age: 69 Date of : 1950 Accession Number: [id number] Date of Service: 05/24/2020 Gender: M EXAM [...] Procedure Note Alvino Cruz MD - 05/24/2020 [facility] Imaging Result Name: BENITO CISSE Ordering Phys: TRI GÓMEZ Age: 69 Date of : 1950 Accession Number: [id number] Date of Service: 05/24/2020 Gender: M EXAM [...] Alvino Cruz M.D. NC: JESSIE Report ID: [id number] Reading Location: [id number] Tri Gómez MD IMG CT PROCEDURES F inal Result from Last 3 Months or Most Recently Relevant to Health Maintenance Insurance [employer] MEDICARE HMO MEDICARE [facility] MEDICARE HMO [facility] MEDICARE GENERIC RISK OTHER [facility] [place] [employer] MEDICARE HMO Advance Directives For more information, please contact: [phone] * Full Code (Latest Code Status on [...] 11:22 AM 09/24/2018 5:51 PM Care Teams Electrical Checkout Mechanic Relationship Specialty [place] [id number] [place] [address] PCP - General Family Medicine 05/24/20 Miscellaneous, Not In File 08/20/18
--- OUTSIDE RECORDS SUMMARY | 2025-02-22 00:38 | XMS_ITS | Clinical Summary ---
Author Organization [facility] Address [address] [place] [address] Care Team Providers Care Wash Crew Person Name Role Phone Unavailable Primary Care Provider Unavailabl e Source Comments [facility],non-owned Affiliates and Associated Physician Practices is amultiple site organization consisting of ambulatory clinics and hospital sitesin [place], [place] and [place]. This disclosure is being madepursuant to the Care Everywhere program and may not contain all information available regarding this patient. Last updated 18.[facility] Allergies No known active allergies Medications * [...] on file Legal Sex Male 4:51 PM CAN LINE OPERATOR Gender Identity Not on file Sexual Orientation Not on file Last Filed Vital Signs Vital Sign Reading Time Taken Comments Blood Pressure 116/62 06/06/2019 7:10 AM CAN LINE OPERATOR Pulse 61 06/06/2019 7:10 AM CAN LINE OPERATOR Temperature 36.1 C (96.9 F) 06/06/2019 7:10 AM CAN LINE OPERATOR Respiratory Rate 20 06/06/2019 10:14 AM CAN LINE OPERATOR Oxygen Saturation 99% 06/06/2019 7:10 AM CAN LINE OPERATOR Inhaled Oxygen Concentration - - Weight 77.1 kg (170 lb) 06/06/2019 7:10 AM CAN LINE OPERATOR Height 167.6 cm (5' 6) 06/06/2019 7:10 AM CAN LINE OPERATOR Body Mass Index 27.44 06/06/2019 7:10 AM CAN LINE OPERATOR Plan of Treatment Health Maintenance Due [...]
--- OUTSIDE RECORDS SUMMARY | 2025-02-22 00:38 | XMS_ITS | Encounter Summary ---
Author Organization [facility] Address [address] [place] [address] Phone Care Team Providers Care Karate Instructor Name Role Phone Yaw Sol MD Primary Care Provider [phone] Provider, Unknown Primary Care Provider Unavaila ble Provider, None Primary Care Provider Unavailabl e Provider, Unknown Unavailable Unavailable Lanie Whitaker LICENSED PHYSICAL THERAPY ASSISTANT Unavailable Unavailab le Reason for Visit * Reason Comments Medication Refill Encounter Details Date Type Department Care Team (Late st Contact Info) Description 10/28/2021 Refill [facility] - Family Medicine [facility] [address] [place] [phone] Yaw Sol MD [address] [place] [address] Medication Refill Social History Tobacco Use Types [...] Osifrah Spears 11/12/20 Office Visit Darek Salamanca, PAINT MIXER HAND, EMERGENCY MEDICAL TECH [facility] within past 365 days [...] [place] 11/12/20 Office Visit Darek Salamanca APRN, EMERGENCY MEDICAL TECH [facility] Showing recent visits within past 365 days [...] documented as of this encounter Care Teams Karate Instructor Relationship Specialty Start Date End Date Yaw Sol MD PCP - General Family Medicine 06/18/20 10/18/22 Provider, Unknown UNKNOWN PCP - General 10/23/22 04/10/23 Provider, None [place] PCP - General 04/11/23 Provider, Unknown UNKNOWN 04/11/23 Lanie Whitaker LSW [place] Advertising Supervisor 01/26/21 12/17/21 documented as of this encounter
--- OUTSIDE RECORDS SUMMARY | 2025-02-22 00:38 | XMS_ITS | Encounter Summary ---
Author Organization [facility] Address [address] [place] [address] Phone Care Team Providers Care Fruit Harvester Name Role Phone Yaw Sol MD Primary Care Provider Provider, Unknown Primary Care Provider Unavaila ble Provider, None Primary Care Provider Unavailabl e Provider, Unknown Unavailable Unavailable Reason for Visit * Reason Comments Medication Refill Encounter Details Date Type Department Care Team (Late st Contact Info) Description 07/31/2022 [facility]ill [facility] [address] [place] [id number] Yaw Sol MD [address] [place] [address] Medication Refill Social History Tobacco Use Types [...] documented as of this encounter Care Teams Fruit Harvester Relationship Specialty Start Date End Date Yaw Sol MD PCP - General Family Medicine 06/18/20 10/18/22 Provider, Unknown UNKNOWN PCP - General 10/23/22 04/10/23 Provider, None [place] PCP - General 04/11/23 Provider, Unknown UNKNOWN 04/11/23 documented as of this encounter
--- OUTSIDE RECORDS SUMMARY | 2025-02-22 00:38 | XMS_ITS | Encounter Summary ---
Author Organization [facility] Address [address] [place] [address] Phone Care Team Providers Care Spring Tier Name Role Phone Yaw Sol MD Primary Care Provider [phone] Provider, Unknown Primary Care Provider Unavaila ble Provider, None Primary Care Provider Unavailabl e Provider, Unknown Unavailable Unavailable Reason for Visit * Reason Comments Medication Refill Encounter Details Date Type Department Care Team (Late st Contact Info) Description 07/02/2022 [facility]ill [facility] [address] [place] [id number] Yaw Sol MD [address] [place] [address] Medication Refill Social History Tobacco Use Types [...] Chey Crane RMA - 07/05/2022 9:19 AM SMT TECHNICIAN Mailed letter TECHNICIAN * Telephone Encounter - Kristina Cotton RN - 07/02/2022 5:19 PM CST Needs OV with PCP TECHNICIAN * Telephone Encounter - Kristina Cotton [...] LDL, HDLCHOLESTE, CHOLESTEROL, TRIGLYCRIDES, VLDL, CHDL, HDLNON TECHNICIAN documented in this encounter Plan of [...] documented as of this encounter Care Teams Spring Tier Relationship Specialty Start Date End Date Yaw Sol MD PCP - General Family Medicine 06/18/20 10/18/22 Provider, Unknown UNKNOWN PCP - General 10/23/22 04/10/23 Provider, None [place] PCP - General 04/11/23 Provider, Unknown UNKNOWN 04/11/23 documented as of this encounter
[2025-02-22] MEDS: ACETAMINOPHEN 500 MG TABLET 1000 MG PO (00:43)
== END 2025-02-22 03:08 | disposition home or self-care (01) ==
PROVIDERS: Emergency Provider Student in an Organized Health Care Education/Training Program
DX: M25.561 Pain in right knee (principal); G89.29 Other chronic pain; I69.920 Aphasia following unspecified cerebrovascular disease; F17.210 Nicotine dependence, cigarettes, uncomplicated
CPT/HCPCS: 73562; 99283; A9270

== ENCOUNTER 2025-03-12 19:55 | Emergency (ER) | payer MEDICARE, MEDICAID, SELFPAY ==
--- NOTE | ~2025-03-12 | XR_ITS ---
XR knee RT 3V INDICATION: pain, hx arthritis . COMPARISON: None. FINDINGS: Frontal, lateral and oblique views of the right knee demonstrate severe degenerative changes within the medial tibiofemoral compartment with depression of the medial tibial plateau. There are erosive changes involving the femoral condyle and tibial plateau. Subchondral cystic changes and sclerosis. There are large marginal osteophytes. Suprapatellar joint effusion is noted. IMPRESSION: Radiographic examination of the right knee demonstrates no acute fracture or dislocation. Tricompartment osteoarthritis most severe in the medial tibiofemoral compartment. Reviewed, dictated and finalized at location S. FITTER IMPRESSION: Radiographic examination of the right knee demonstrates no acute fracture or di slocation. Tricompartment osteoarthritis most severe in the medial tibiofemoral compartmen t.
[2025-03-12 19:58] VITALS: BP 112/55; PULSE 93; RESP 20; TEMP 36.5; O2SAT 98
--- NOTE | 2025-03-12 21:00 | PC.NURSE ---
Pt. picked up his bags and moved them from his room, 18, and put them in room 19. Pt. educated that he does not get to choose any room he would like, and needs to move his belongings back to his assigned room. Pt. swatted his hand in this RN's face, mumbled unintelligible speech and reluctantly moved his belongings back in to room 18.
--- OUTSIDE RECORDS SUMMARY | 2025-03-12 21:44 | XMS_ITS | Encounter Summary ---
Author Organization [facility] Address [address] [place] [address] Phone Care Team Providers Care Ticket Clerk Name Role Phone Yaw Sol MD Primary Care Provider [phone] Provider, Unknown Primary Care Provider Unavaila ble Provider, None Primary Care Provider Unavailabl e Provider, Unknown Unavailable Unavailable Reason for Visit * Reason Comments Medication Refill Encounter Details Date Type Department Care Team (Late st Contact Info) Description 07/31/2022 [facility]ill [facility] [address] [place] [phone] Yaw Sol MD [address] [place] [address] Medication Refill Social History Tobacco Use Types [...] documented as of this encounter Care Teams Ticket Clerk Relationship Specialty Start Date End Date Yaw Sol MD PCP - General Family Medicine 06/18/20 10/18/22 Provider, Unknown UNKNOWN PCP - General 10/23/22 04/10/23 Provider, None [place] PCP - General 04/11/23 Provider, Unknown UNKNOWN 04/11/23 documented as of this encounter
--- OUTSIDE RECORDS SUMMARY | 2025-03-12 21:44 | XMS_ITS | Encounter Summary ---
Author Organization [facility] Address [address] [place] [address] Phone Care Team Providers Care Lead Printer Name Role Phone Yaw Sol MD Primary Care Provider [phone] Provider, Unknown Primary Care Provider Unavaila ble Provider, None Primary Care Provider Unavailabl e Provider, Unknown Unavailable Unavailable Lanie Whitaker Unavailable Unavailab le Reason for Visit * Reason Comments Medication Refill Encounter Details Date Type Department Care Team (Late st Contact Info) Description 11/27/2021 Refill [facility] - Family Medicine [facility] [address] [place] [address] Darek Salamanca, RAFITA, HEALTHCARE BUSINESS ANALYST [address] [address] Medication Refill Social History Tobacco Use Types [...] [place] 12/10/20 Office Visit Yaw Sol MD [facility] Showing recent visits within past 365 days [...] as of this encounter Care Teams Lead Printer Relationship Specialty Start Date End Date Yaw Sol MD PCP - General Family Medicine 06/18/20 10/18/22 Provider, Unknown UNKNOWN PCP - General 10/23/22 04/10/23 Provider, None [place] PCP - General 04/11/23 Provider, Unknown UNKNOWN 04/11/23 Lanie Whitaker, ARIES [place] Production Team Leader 01/26/21 12/17/21 documented as of this encounter
--- OUTSIDE RECORDS SUMMARY | 2025-03-12 21:44 | XMS_ITS | Encounter Summary ---
Author Organization [facility] Address [address] [place] [address] Phone Care Team Providers Care Livestock Laborer Name Role Phone Yaw Sol MD Primary Care Provider [phone] Provider, Unknown Primary Care Provider Unavaila ble Provider, None Primary Care Provider Unavailabl e Provider, Unknown Unavailable Unavailable Reason for Visit * Reason Comments Medication Refill Encounter Details Date Type Department Care Team (Late st Contact Info) Description 06/25/2022 Refill [facility] [address] [place] [phone] Yaw Sol MD [address] [place] [address] Medication Refill Social History Tobacco Use Types [...] Na Bustamante RN - 06/28/2022 8:21 AM GM Patient needs appointment. Medication failed the protocol, [...] documented as of this encounter Care Teams Livestock Laborer Relationship Specialty Start Date End Date Yaw Sol MD PCP - General Family Medicine 06/18/20 10/18/22 Provider, Unknown UNKNOWN PCP - General 10/23/22 04/10/23 Provider, None [place] PCP - General 04/11/23 Provider, Unknown UNKNOWN 04/11/23 documented as of this encounter
--- OUTSIDE RECORDS SUMMARY | 2025-03-12 21:44 | XMS_ITS | Clinical Summary ---
Author Organization [facility] Address [address] [place] [address] Care Team Providers Care Pearl Glue Drier Name Role Phone Unavailable Primary Care Provider Unavailabl e Source Comments [facility],non-owned Affiliates and Associated Physician Practices is amultiple site organization consisting of ambulatory clinics and hospital sitesin [place], [place], [place] and [place]. This disclosure is being madepursuant to the Care Everywhere program and may not contain all information available regarding this patient. Last updated 18.[facility] Allergies No known active allergies Medications * [...] on file Legal Sex Male 4:51 PM PALLIATIVE CARE COORDINATOR Gender Identity Not on file Sexual Orientation Not on file Last Filed Vital Signs Vital Sign Reading Time Taken Comments Blood Pressure 116/62 06/06/2019 7:10 AM PALLIATIVE CARE COORDINATOR Pulse 61 06/06/2019 7:10 AM PALLIATIVE CARE COORDINATOR Temperature 36.1 C (96.9 F) 06/06/2019 7:10 AM PALLIATIVE CARE COORDINATOR Respiratory Rate 20 06/06/2019 10:14 AM PALLIATIVE CARE COORDINATOR Oxygen Saturation 99% 06/06/2019 7:10 AM PALLIATIVE CARE COORDINATOR Inhaled Oxygen Concentration - - Weight 77.1 kg (170 lb) 06/06/2019 7:10 AM PALLIATIVE CARE COORDINATOR Height 167.6 cm (5' 6) 06/06/2019 7:10 AM PALLIATIVE CARE COORDINATOR Body Mass Index 27.44 06/06/2019 7:10 AM PALLIATIVE CARE COORDINATOR Plan of Treatment Health Maintenance Due Date [...]
--- OUTSIDE RECORDS SUMMARY | 2025-03-12 21:44 | XMS_ITS | Encounter Summary ---
Author Organization [facility] Address [address] [place] [address] Phone Care Team Providers Care Director Recreation Center Name Role Phone Yaw Sol MD Primary Care Provider [phone] Provider, Unknown Primary Care Provider Unavaila ble Provider, None Primary Care Provider Unavailabl e Provider, Unknown Unavailable Unavailable Lanie Whitaker BLACK POWDER GLAZING OPERATOR Unavailable Unavailab le Reason for Visit * Reason Comments Medication Refill Encounter Details Date Type Department Care Team (Late st Contact Info) Description 10/28/2021 Refill [facility] - Family Medicine [facility] [address] [place] [address] Yaw Sol MD [address] [place] [address] Medication Refill Social History Tobacco Use Types [...] Telephone Encounter - Kristina Cotton RN - 10/29/2021 1:10 PM CDT Medication [...] Office Visit Yaw Sol MD [facility] 11/12/20 Office Visit Darek Salamanca, ELECTRIC POWER LINE EXAMINER, APPRAISER AUDITOR [facility] past 365 [...] [place] 11/12/20 Office Visit Darek Salamanca APRN, APPRAISER AUDITOR [facility] Showing recent visits within past 365 [...] as of this encounter Care Teams Director Recreation Center Relationship Specialty Start Date End Date Yaw Sol MD PCP - General Family Medicine 06/18/20 10/18/22 Provider, Unknown UNKNOWN PCP - General 10/23/22 04/10/23 Provider, None [place] PCP - General 04/11/23 Provider, Unknown UNKNOWN 04/11/23 Lanie Whitaker, BLACK POWDER GLAZING OPERATOR [place] Machine Shop Helper 01/26/21 12/17/21 documented as of this encounter
--- OUTSIDE RECORDS SUMMARY | 2025-03-12 21:44 | XMS_ITS | Clinical Summary ---
Author Organization [facility] Address [address] [place] [address] Care Team Providers Care Education Faculty Member Name Role Phone Miscellaneous, Not In File [...] mouth daily 30 tablet 11 11/30/2020 Active meloxicam (MOBIC) 15 mg tablet Take 1 tablet (15 mg total) by mouth daily 30 tablet 02/22/2025 6 Active Active Problems Problem Noted Date Diagnosed [...] with motrin as needed Cerebrovascular accident (CVA) ([facility]) Assessment & Plan (10/14/2021 12:45 AM CDT): H/o L MCA CVA. Patient had expressive aphasia and right sided weakness from review of EMR. Unclear what residual deficits patient had. Patient also reports being admitted 1 month ago at [facility] for CVA. Will need to obtain records. [...] may need MRI to r/o new CVA. SOCIAL AND POLITICAL STUDIES PROFESSOR consulted. Will need to obtain records from patient's admission 1month ago at [facility]. Encounters Date Type Department Care Team Description 03/07/2025 5:39 AM PRODUCTION BROACHER - 03/07/2025 5:44 AM PRODUCTION BROACHER Emergency [facility] Emergency Department [address] [place] [address] Apolinar Mujica MD Malingering (Primary Dx); Aggressive behavior Discharge Disposition: Discharge to home or self care 02/26/2025 12:53 AM CDT - 02/26/2025 2:02 AM CDT Emergency [facility] Emergency Department [address] [place] [address] Arthritis (Primary Dx) Discharge Disposition: Discharge to home or self care 02/22/2025 4:54 PM CDT - 02/22/2025 7:02 PM CDT Emergency [facility] Emergency Department [address] [place] [address] Primary osteoarthritis of right knee (Primary Dx) Discharge Disposition: Discharge to home or self care from Last 3 Months Immunizations Immunization Administration Dates Next Due Tdap 01/02/2019,12/08/2016 Surgical History Surgery Date Site/Laterality Comments JOINT REPLACEMENT Left knee BACK SURGERY Medical History Medical History Date Comments Arthritis COPD (chronic obstructive pulmonary disease) Stroke (HCC) Social History Tobacco Use Types Packs/Day Years [...] making you feel afraid or unsafe? Denies 03/07/2025 Sex and Gender Information Value Date Recorded Sex Assigned at Not on file Legal Sex Male 7:03 PM PRODUCTION BROACHER Gender Identity Not on file Sexual Orientation Not on file Last Filed Vital Signs Vital Sign Reading Time Taken Comments Blood Pressure 121/68 03/07/2025 3:55 AM PRODUCTION BROACHER Pulse 67 03/07/2025 3:55 AM PRODUCTION BROACHER Temperature 36.7 C (98 F) 03/07/2025 3:55 AM PRODUCTION BROACHER Respiratory Rate 18 03/07/2025 3:55 AM PRODUCTION BROACHER Oxygen Saturation 100% 03/07/2025 3:55 AM PRODUCTION BROACHER Inhaled Oxygen Concentration - - Weight 79.4 kg (175 lb 0.7 oz) 03/07/2025 1:32 A M PRODUCTION BROACHER Height 167.6 cm (5' 5.98) 03/07/2025 1:32 AM CS T Body Mass Index 28.27 03/07/2025 1:32 AM PRODUCTION BROACHER Plan of Treatment Health Maintenance Due Date Last Done Comments Colon Cancer Screening-Colonoscopy 1950 Depression Screening 1950 Hepatitis C Screening 1950 Prostate Cancer Screening-PSA 1950 Hepatitis B Screening 12/13/1969 Pneumococcal vaccine 65+ (1 of 2 - PCV) 12/13/1970 Zoster Vaccine (1 of 2) 12/13/2001 Well Visit 65+ 12/13/2016 Fall Risk Assessment 10/15/2022 10/15/2021 Covid-19 Vaccine (2 - season) 12/31/202407/2021 Influenza Vaccine (#1) 2024 05/24/2018 DTaP/Tdap/Td Vaccine (4 - Td or Tdap) 06/02/2030 06/02/2020, 01/02/2019, 12/08/2016 Abdominal Aortic Aneurysm (A AA) Screen Completed 05/24/2020, 02/14/2017, 12/25/2016 Procedures Procedure Name Priority Date/Time Associated Diagnosis Comments XR KNEE RIGHT 1 OR 2 VIEWS ED 03/07/2025 2:29 AM PRODUCTION BROACHER XR KNEE RIGHT 1 OR 2 VIEWS ED Urgent/IP Urgent 02/22/2025 6:[address] ABDOMEN PELVIS W CONTRAST ED 05/24/2020 6:38 PM PRODUCTION BROACHER from Last 3 Months or Most Recently Relevant to Health Maintenance Results * XR Knee Right 1 or 2 Views (03/07/2025 2:29 AM PRODUCTION BROACHER) Anatomical Region Laterality Modality Lower Extremities, Knee Right Computed Radiography 03/07/2025 2:49 AM PRODUCTION BROACHER Impressions 03/07/2025 9:39 AM PRODUCTION BROACHER FINDINGS/IMPRESSION: No acute fracture or dislocation. Severe patellofemoral compartment predominant tricompartmental right knee osteoarthritis. Increased overlying soft tissue swelling. Unchanged moderate to large knee joint effusion. Vascular calcifications. Dictated by: Marilynn Goyal MD The radiology attending physician has personally reviewed this study, and had reviewed and/or edited this written report and agrees with it. Electronically signed by: Jessica Swartz M.D. Narrative 03/07/2025 9:39 AM PRODUCTION BROACHER EXAMINATION: XR KNEE RIGHT 1 OR 2 VIEWS HISTORY: Fall COMPARISON: 02/22/2025 Procedure Note Jessica Swartz MD - 03/07/2025 EXAMINATION: XR KNEE RIGHT 1 OR 2 VIEWS HISTORY: Fall COMPARISON: 02/22/2025 IMPRESSION: FINDINGS/IMPRESSION: No acute fracture or dislocation. Severe patellofemoral compartment predominant tricompartmental right knee osteoarthritis. Increased overlying soft tissue swelling. Unchanged moderate to large knee joint effusion. Vascular calcifications. Dictated by: Marilynn Goyal MD The radiology attending physician has personally reviewed this study, and had reviewed and/or edited this written report and agrees with it. Electronically signed by: Jessica Swartz M.D. us Apolinar Mujica MD IMG XR PROCEDURES Fin al Result * XR Knee Right 1 or 2 Views (02/22/2025 6:22 PM CDT) Anatomical Region Laterality Modality Lower Extremities, Knee Right Computed Radiography 02/22/2025 6:27 PM CDT Impressions 02/22/2025 6:52 PM CDT Severe tricompartmental right knee osteoarthritis greatest within the patellofemoral compartment, similar to 01/25/2023. Unchanged large joint effusion. Soft tissue vascular calcifications. No acute fracture or dislocation. Osseous loose body is again noted. Dictated by: Mari Farah MD The radiology attending physician has personally reviewed this study, and had reviewed and/or edited this written report and agrees with it. Electronically signed by: Qasim Lloyd MD PHD Narrative 02/22/2025 6:52 PM CDT EXAMINATION: XR KNEE RIGHT 1 OR 2 VIEWS HISTORY: Pain and swelling after fall. COMPARISONS: Plain radiograph dated 01/25/2023. Procedure Note Qasim Lloyd MD PhD - 02/22/2025 EXAMINATION: XR KNEE RIGHT 1 OR 2 VIEWS HISTORY: Pain and swelling after fall. COMPARISONS: Plain radiograph dated 01/25/2023. IMPRESSION: Severe tricompartmental right knee osteoarthritis greatest within the patellofemoral compartment, similar to 01/25/2023. Unchanged large joint effusion. Soft tissue vascular calcifications. No acute fracture or dislocation. Osseous loose body is again noted. Dictated by: Mari Farah MD The radiology attending physician has personally reviewed this study, and had reviewed and/or edited this written report and agrees with it. Electronically signed by: Qasim Lloyd MD PHD us Shyann Cotton MD IMG XR PROCEDURES Final Res ult * CT Abdomen Pelvis W Contrast (05/24/2020 6:38 PM PRODUCTION BROACHER) Anatomical Region Laterality Modality Body N/A Computed Tomogra phy 05/24/2020 6:28 PM PRODUCTION BROACHER Impressions 05/24/2020 6:52 PM PRODUCTION BROACHER No acute inflammatory process is noted. No cholecystitis. Normal appendix. Diverticulosis without diverticulitis THIS IS AN ELECTRONICALLY VERIFIED FINAL REPORT 05/24/2020 6:48 PM - Electronically signed by Alvino Cruz M.D. NC: DE Report ID: [id number] Reading Location: [id number] 05/24/2020 6:52 PM PRODUCTION BROACHER [facility] Imaging Result Name: BRII CISSE Ordering Phys: TRI GÓMEZ Age: 69 Date of : 1950 Accession Number: [id number] Date of Service: 05/24/2020 Gender: M EXAM [...] Procedure Note Alvino Cruz MD - 05/24/2020 [facility] Imaging Result Name: BETITO BRII Flor Ordering Phys: TRI GÓMEZ Age: 69 Date of : 1950 Accession Number: [id number] Date of Service: 05/24/2020 Gender: M EXAM [...] Alvino Cruz M.D. NC: JESSIE Report ID: [id number] Reading Location: [id number] Tri Gómez MD IMG CT PROCEDURES F inal Result from Last 3 Months or Most Recently Relevant to Health Maintenance Insurance [facility] MEDICARE [facility]ANT[facility] Address: [address] [address] [place] [address] [employer] [facility] MEDICARE ADVANTAGE [facility] Address: [facility] [address] [place] [address] Advance Directives For more information, please contact: [phone] * Full Code (Latest Code Status on [...] 11:22 AM 09/24/2018 5:51 PM Care Teams Education Faculty Member Relationship Specialty [place] [id number] [facility] [id number] [place] [address] PCP - General Family Medicine 05/24/20 Miscellaneous, Not In File 08/20/18
--- OUTSIDE RECORDS SUMMARY | 2025-03-12 21:44 | XMS_ITS | Encounter Summary ---
Author Organization [facility] Address [address] [place] [address] Phone Care Team Providers Care [employer] Spanish Teacher Name Role Phone Yaw Sol MD Primary Care Provider [phone] Provider, Unknown Primary Care Provider Unavaila ble Provider, None Primary Care Provider Unavailabl e Provider, Unknown Unavailable Unavailable Reason for Visit * Reason Comments Medication Refill Encounter Details Date Type Department Care Team (Late st Contact Info) Description 08/27/2022 Refill [facility] - Family Medicine [facility] [address] [place] [phone] Yaw Sol MD [address] [place] [address] Medication Refill Social History Tobacco Use Types [...] Telephone Encounter - Kristina Cotton RN - 08/27/2022 8:37 AM CDT Follow [...] Provider Dept 09/10/22 Appointment Yaw Sol MD [facility] Showing future appointments within next 90 [...] documented as of this encounter Care Teams [employer] Spanish Teacher Relationship Specialty Start Date End Date Yaw Sol MD PCP - General Family Medicine 06/18/20 10/18/22 Provider, Unknown UNKNOWN PCP - General 10/23/22 04/10/23 Provider, None [place] PCP - General 04/11/23 Provider, Unknown UNKNOWN 04/11/23 documented as of this encounter
--- OUTSIDE RECORDS SUMMARY | 2025-03-12 21:45 | XMS_ITS | Encounter Summary ---
Author Organization [facility] Address [address] [place] [address] Phone Care Team Providers Care [employer] Name Role Phone Yaw Sol MD Primary Care Provider [phone] Provider, Unknown Primary Care Provider Unavaila ble Provider, None Primary Care Provider Unavailabl e Provider, Unknown Unavailable Unavailable Reason for Visit * Reason Comments Medication Refill Encounter Details Date Type Department Care Team (Late st Contact Info) Description 07/02/2022 Refill [facility] - Family Medicine [facility] [address] [place] [phone] Yaw Sol MD [address] [place] [address] Medication Refill Social History Tobacco Use Types [...] Chey Crane RMA - 07/05/2022 9:19 AM RECEPTION MANAGER Mailed letter PTION MANAGER * Telephone Encounter - Kristina Cotton RN - 07/02/2022 5:19 PM CST Needs OV with PCP PTION MANAGER * Telephone Encounter - Kristina Cotton [...] LDL, HDLCHOLESTE, CHOLESTEROL, TRIGLYCRIDES, VLDL, CHDL, HDLNON PTION MANAGER documented in this encounter Plan of [...] documented as of this encounter Care Teams [employer] Relationship Specialty Start Date End Date Yaw Sol MD PCP - General Family Medicine 06/18/20 10/18/22 Provider, Unknown UNKNOWN PCP - General 10/23/22 04/10/23 Provider, None [place] PCP - General 04/11/23 Provider, Unknown UNKNOWN 04/11/23 documented as of this encounter
--- NOTE | 2025-03-12 22:10 | ED_ITS ---
HPI - Extremity Injury (Lower) General Chief Complaint: Extremity Injury, Lower Stated Complaint: my legs are worn down to the bone Time Seen by Provider: 03/12/25 21:08 Source: patient and old records reviewed Mode of arrival: ambulatory Limitations: no limitations History of Present Illness HPI Narrative: Patient is a 74 y/o male, with PMH of polysubstance abuse, CVA w/ residual right-sided deficits and aphasia, who presents to the ED with c/o R knee pain. Patient is well-known to this facility. Has been seen here several times for acute on chronic knee pain. Currently c/o pain to R knee. Denies any new fall or injury. Has not taken anything for pain. Denies fevers, wounds. Related Data Home Medications ?Medication ?Instructions ?Recorded ?Confirmed ?Last Taken ?Type naproxen 500 mg tablet 500 mg PO BID PRN Pain (Scal e 12/01/23 12/01/23 Unknown History Score 1-3) Allergies Allergy/AdvReac Type Severity Reaction Status Date / Time No Known Allergies Allergy Verified 03/12/25 20:05 Review of Systems Review of Systems: All systems reviewed & are unremarkable except as noted in HPI. All systems reviewed & are unremarkable except as noted in HPI and below PMFSH Past Medical History Medical History Cocaine abuse Tobacco abuse Normocytic anemia History of depression History of anxiety History of CHF (congestive heart failure) Arthritis Surgical History Surgical History History of left knee replacement Social History Social History Smoking packs per day: 1 Smoking cigarettes per day: 20.0 Alcohol intake: never Substance use: current Substance use type: crack/cocaine Last use: [facility] ON ADMISSION Do You Feel Safe in your Home?: Yes Lack of Transportation: YES Lack of Food: Sometimes True Current Housing: I Do Not Have Housing Concerned About Future Housing: YES Difficulty Paying Gas/Electric Bills: YES Difficulty Paying for Meds: YES Currently Unemployed: YES Education: Don't Know Difficulty w/ Childcare or Family Care: No Gender identity (if verbalized by the patient): Male Spiritual care concerns: No Exam Narrative: GENERAL: Mildly disheveled, thin, non-toxic, in no acute distress. HEAD: Normocephalic, atraumatic. RESPIRATORY: Airway patent, respirations nonlabored. CARDIOVASCULAR: Regular rate and rhythm. Pedal pulses intact MUSCULOSKELETAL: Moves all extremities. No gross deformities. Mild TTP along medial joint space of R knee w/ mild swelling noted. No warmth or erythema. No wounds. No obvious crepitus. Sensation intact. No obvious signs of trauma. No lower extremity peripheral edema. SKIN: Warm, dry, normal color. NEURO: A&O X3. No ataxic movements. No acute focal deficits. PSYCHIATRIC: Appropriate mood and affect. Normal interaction. Course Vital Signs Vital signs: Vital Signs Temperature 97.7 F 03/12/25 19:58 Pulse Rate 93 03/12/25 19:58 Respiratory Rate 20 03/12/25 19:58 Blood Pressure 112/55 L 03/12/25 19:58 Pulse Oximetry 98 03/12/25 19:58 Oxygen Delivery Room Air 03/12/25 19:58 Temperature 97.7 F 03/12/25 19:58 Pulse Rate 74 03/12/25 22:23 Respiratory Rate 18 03/12/25 22:23 Blood Pressure 110/60 03/12/25 22:23 Pulse Oximetry 96 03/12/25 22:23 Oxygen Delivery Room Air 03/12/25 19:58 MDM - Extremity Injury (Lower) MDM Narrative Medical decision making narrative: Patient?s injury is consistent with musculoskeletal etiology. No signs of neurologic or vascular compromise on physical examination. Compartments are soft without signs of compartment syndrome. No signs of septic joint or overlying infection. XR showing suprapatellar joint effusion w/ tricompartmental osteoarthritis, no acute fracture or dislocation. Pain is consistent with chronic pain, arthritis. Patient is felt to be stable for discharge home and further outpatient management and treatment. Patient given Romulo bandage and prescription for Tylenol. He reported he would need a prescription for this. Will be referred to orthopedics. Given return precautions. Discharged in stable condition. Medical Records Attestation: I reviewed the patient's medical records. Imaging Data Attestation: I personally reviewed and interpreted this imaging study as follows: Radiologist's impression: ITS Impressions Knee X-Ray 03/12/25 21:33 IMPRESSION: Radiographic examination of the right knee demonstrates no acute fracture or dislocation. Tricompartment osteoarthritis most severe in the medial tibiofemoral compartment. Discharge Plan Discharge Clinical Impression: Suprapatellar swelling of knee joint, Arthritis of right knee Pain in right knee Qualifiers: Chronicity: chronic Qualified Code(s): M25.561 - Pain in right knee Patient Disposition: Home Condition: Stable Instructions: Antibiotic Form, Swollen Knee Joint (ED), Knee Pain (ED) Additional Instructions: Use Romulo bandage for compression/support. Recommend frequent icing to right knee. Recommend Tylenol as needed for pain. Follow-up with orthopedics for further evaluation as needed. Return to the ED for new or worsening concerns, fall or injury, severe pain, redness or warmth of knee, fevers, or any other symptoms of concern. Patient Language: Slovenian Prescriptions: New acetaminophen 500 mg capsule 1,000 mg PO Q6H PRN (Reason: pain) Qty: 20 0RF No Action naproxen 500 mg tablet 500 mg PO BID PRN (Reason: Pain (Scale Score 1-3)) amoxicillin-pot clavulanate 875-125 mg tablet 1 tablet PO Q12H Qty: 14 0RF prednisone 20 mg tablet 40 mg PO DAILY Qty: 10 0RF albuterol sulfate 90 mcg/actuation HFA aerosol inhaler 1 inh inhalation QID PRN (Reason: shortness of breath or wheezing) Qty: 6.7 0RF lidocaine 5 % adhesive patch,medicated 1 patch topical DAILY Qty: 15 0RF Rx Instructions: leave on most painful area for up to 12 hrs naproxen 500 mg tablet 500 mg PO BID PRN (Reason: pain) Qty: 20 0RF azithromycin 250 mg tablet 250 mg PO DAILY 4 Days Qty: 4 0RF Rx Instructions: start on day 2 of therapy prednisone 20 mg tablet 40 mg PO DAILY 4 Days Qty: 8 0RF albuterol sulfate 90 mcg/actuation HFA aerosol inhaler 2 puff inhalation QID PRN (Reason: shortness of breath or wheezing) Qty: 8.5 0RF acetaminophen 500 mg capsule 500 mg PO Q6H PRN (Reason: pain) Qty: 14 0RF amoxicillin 500 mg capsule 1,000 mg PO Q8H 5 Days Qty: 30 0RF azithromycin 250 mg tablet See Rx Instructions .ROUTE .COMPLEX Qty: 6 0RF Rx Instructions: For 250 mg dose pack: take 500 mg today (day 1), then 250 mg for 4 days (days 2-5) benzonatate 200 mg capsule 200 mg PO TID PRN (Reason: cough) Qty: 20 0RF Follow-up/Referrals: PHYSICIAN,DATA ANALYSIS MANAGER [Primary Care Provider, Internal Medicine] Zane Andersen MD [Physician, Orthopedics] Referral Note: ORTHOPEDICS Time of Disposition: 22:13
--- NOTE | 2025-03-12 22:15 | PC.NURSE ---
upon arrival to pts room to give him some tylenol, pt had urinated on himself. this RN offered the pt a pair of disposable scrub pants and he declined Its cold outside
[2025-03-12] MEDS: ACETAMINOPHEN 500 MG TABLET 1000 MG PO (22:16)
[2025-03-12 22:23] VITALS: BP 110/60; PULSE 74; RESP 18; O2SAT 96
== END 2025-03-12 22:27 | disposition home or self-care (01) ==
PROVIDERS: Emergency Provider Physician Assistant
DX: M17.11 Unilateral primary osteoarthritis, right knee (principal); G89.29 Other chronic pain; I69.920 Aphasia following unspecified cerebrovascular disease; F17.210 Nicotine dependence, cigarettes, uncomplicated; Z96.652 Presence of left artificial knee joint; Z86.2 Personal history of diseases of the blood and blood-forming organs and certain disorders involving the immune mechanism
CPT/HCPCS: 73562; 99283; A9270

== ENCOUNTER 2025-04-08 19:54 | Emergency (ER) | payer MEDICARE, MEDICAID, SELFPAY ==
--- NOTE | ~2025-04-08 | XR_ITS ---
EXAMINATION: XR knee RT min 4V DATE: 04/08/2025 21:37 INDICATION: Right knee pain. TECHNIQUE: 4 views of right knee were obtained. COMPARISON: X-ray dated 03/12/2025. FINDINGS: No acute bony lesions. Deformity of the medial tibial plateau due to old injury and advanced degenerative changes of medial compartment. Significant degenerative changes of patellofemoral joint. Effusion in the knee joint. IMPRESSION: 1. No acute bony lesions. 2. Advanced degenerative changes mainly of medial compartment with evidence of old injury to the medial tibial plateau. Significant degenerative changes of patellofemoral joint. Effusion in the knee joint. MRI is indicated if symptoms are persistent. Reviewed, dictated and finalized at location T. R FOREMAN IMPRESSION: 1. No acute bony lesions. 2. Advanced degenerative changes mainly of medial compartment with evidence of old injury to the medial tibial plateau. Significant degenerative changes of pa tellofemoral joint. Effusion in the knee joint. MRI is indicated if symptoms ar e persistent.
[2025-04-08 20:37] VITALS: BP 118/55; PULSE 72; RESP 17; TEMP 36.6; O2SAT 98
--- NOTE | 2025-04-08 21:29 | ED.LOWEXIN ---
HPI - Extremity Injury (Lower) General Chief Complaint: Extremity Injury, Lower Stated Complaint: LOWER EXTREMITY PAIN Time Seen by Provider: 04/08/25 21:11 Source: patient Mode of arrival: ambulatory Limitations: no limitations History of Present Illness HPI Narrative: This is a 74-year-old male that presents to the emergency department for right knee pain. Reports it has worsened with cold weather. History of chronic knee pain. He did not take anything for pain today. Denies fevers, redness. Related Data Home Medications ?Medication ?Instructions ?Recorded ?Confirmed ?Last Taken ?Type naproxen 500 mg tablet 500 mg PO BID PRN Pain (Scale 12/01/23 12/01/23 Unknown History Score 1-3) Allergies Allergy/AdvReac Type Severity Reaction Status Date / Time No Known Allergies Allergy Verified 04/08/25 20:42 Review of Systems Review of Systems: All systems reviewed & are unremarkable except as noted in HPI and below PMFSH Past Medical History Medical History Cocaine abuse Tobacco abuse Normocytic anemia History of depression History of anxiety History of CHF (congestive heart failure) Arthritis Surgical History Surgical History History of left knee replacement Social History Social History Smoking packs per day: 1 Smoking cigarettes per day: 20.0 Smoking status: Current every day smoker Alcohol intake: never Substance use: current Substance use type: crack/cocaine Last use: POSITIVE LABS ON ADMISSION Lack of Transportation: YES Lack of Food: Sometimes True Current Housing: I Do Not Have Housing Concerned About Future Housing: YES Difficulty Paying Gas/Electric Bills: YES Difficulty Paying for Meds: YES Currently Unemployed: YES Education: Don't Know Difficulty w/ Childcare or Family Care: No Gender identity (if verbalized by the patient): Male Spiritual care concerns: No Exam Narrative: GENERAL: Well-appearing, well-nourished, and in no acute distress. HEAD: Normocephalic, atraumatic. EYES: EOMI. EXTREMITIES: Normal range of motion. No edema or warmth. Normal DP pulse. Normal sensation SKIN: Warm, dry, no rash. NEURO: No focal deficits. Alert and oriented x3. PSYCH: Normal mood and affect Course Vital Signs Vital signs: Vital Signs Temperature 97.9 F 04/08/25 20:37 Pulse Rate 72 04/08/25 20:37 Respiratory Rate 17 04/08/25 20:37 Blood Pressure 118/55 L 04/08/25 20:37 Pulse Oximetry 98 04/08/25 20:37 Oxygen Delivery Room Air 04/08/25 20:37 Temperature 97.9 F 04/08/25 20:37 Pulse Rate 72 04/08/25 20:37 Respiratory Rate 17 04/08/25 20:37 Blood Pressure 118/55 L 04/08/25 20:37 Pulse Oximetry 98 04/08/25 20:37 Oxygen Delivery Room Air 04/08/25 20:37 MDM MDM Narrative Medical decision making narrative: Patient presents to the emergency department for acute on chronic knee pain. He is afebrile and nontoxic appearing. He is neurovascularly intact. Right knee x-ray showing advanced degenerative changes, especially of the medial compartment where most of his pain is. Patient was updated on his workup, agrees with plan of care. Will be given follow-up with Orthopedics Differential Diagnosis Differential Diagnosis: Osteoarthritis, meniscal tear Medical Records I have reviewed the following patient records and this information was taken into consideration when formulating the assessment and plan.: previous ER visits Imaging Data Radiologist's impression: ITS Impressions Knee X-Ray 04/08/25 21:39 IMPRESSION: 1. No acute bony lesions. 2. Advanced degenerative changes mainly of medial compartment with evidence of old injury to the medial tibial plateau. Significant degenerative changes of patellofemoral joint. Effusion in the knee joint. MRI is indicated if symptoms are persistent. Critical Care Time Critical Care Time Critical Care Time: No Discharge Plan Discharge Clinical Impression: Chronic pain of right knee Osteoarthritis Qualifiers: Osteoarthritis location: knee Osteoarthritis type: unspecified Laterality: right Qualified Code(s): M17.11 - Unilateral primary osteoarthritis, right knee Patient Disposition: Home Condition: Stable Instructions: Osteoarthritis (ED) Additional Instructions: Return to the ER if you experience fever, redness and swelling of your extremity, numbness or any other symptoms that are concerning to you Ice and elevate extremity. Tylenol or Ibuprofen as needed for pain Follow up with orthopedics for further care. Patient Language: Yakut Prescriptions: No Action naproxen 500 mg tablet 500 mg PO BID PRN (Reason: Pain (Scale Score 1-3)) amoxicillin-pot clavulanate 875-125 mg tablet 1 tablet PO Q12H Qty: 14 0RF prednisone 20 mg tablet 40 mg PO DAILY Qty: 10 0RF albuterol sulfate 90 mcg/actuation HFA aerosol inhaler 1 inh inhalation QID PRN (Reason: shortness of breath or wheezing) Qty: 6.7 0RF lidocaine 5 % adhesive patch,medicated 1 patch topical DAILY Qty: 15 0RF Rx Instructions: leave on most painful area for up to 12 hrs naproxen 500 mg tablet 500 mg PO BID PRN (Reason: pain) Qty: 20 0RF azithromycin 250 mg tablet 250 mg PO DAILY 4 Days Qty: 4 0RF Rx Instructions: start on day 2 of therapy prednisone 20 mg tablet 40 mg PO DAILY 4 Days Qty: 8 0RF albuterol sulfate 90 mcg/actuation HFA aerosol inhaler 2 puff inhalation QID PRN (Reason: shortness of breath or wheezing) Qty: 8.5 0RF acetaminophen 500 mg capsule 500 mg PO Q6H PRN (Reason: pain) Qty: 14 0RF acetaminophen 500 mg capsule 1,000 mg PO Q6H PRN (Reason: pain) Qty: 20 0RF amoxicillin 500 mg capsule 1,000 mg PO Q8H 5 Days Qty: 30 0RF azithromycin 250 mg tablet See Rx Instructions .ROUTE .COMPLEX Qty: 6 0RF Rx Instructions: For 250 mg dose pack: take 500 mg today (day 1), then 250 mg for 4 days (days 2-5) benzonatate 200 mg capsule 200 mg PO TID PRN (Reason: cough) Qty: 20 0RF Follow-up/Referrals: Leonardo Elizabeth MD [Physician, Orthopedics] PHYSICIAN,DATABASE DESIGN ANALYST [Primary Care Provider, Internal Medicine]
[2025-04-08] MEDS: ACETAMINOPHEN 500 MG TABLET 1000 MG PO (21:52)
[2025-04-08] MEDS: NAPROXEN 250 MG TABLET PO (21:53)
--- OUTSIDE RECORDS SUMMARY | 2025-04-08 21:59 | XMS_ITS | Encounter Summary ---
Author Organization [facility] Address [address] [place] [address] Phone Care Team Providers Care Liability Claims Manager Name Role Phone Yaw Sol MD Primary Care Provider [phone] Provider, Unknown Primary Care Provider Unavaila ble Provider, None Primary Care Provider Unavailabl e Provider, Unknown Unavailable Unavailable Lanie Whitaker PRINCIPAL MECHANICAL ENGINEER Unavailable Unavailab le Reason for Visit * Reason Comments Medication Refill Encounter Details Date Type Department Care Team (Late st Contact Info) Description 10/28/2021 Refill [facility] - Family Medicine [facility] [address] [place] [address] Yaw Sol MD [address] [place] [address] Medication Refill Social History Tobacco Use Types [...] [facility] 11/12/20 Office Visit Darek Salamanca, SCREW CUTTER, SPECIAL OFFICER AUTOMAT [facility] visits within past 365 [...] [place] 11/12/20 Office Visit Darek Salamanca APRN, SPECIAL OFFICER AUTOMAT [facility] [place] Showing recent visits within past 365 days [...] documented as of this encounter Care Teams Liability Claims Manager Relationship Specialty Start Date End Date Yaw Sol MD PCP - General Family Medicine 06/18/20 10/18/22 Provider, Unknown UNKNOWN PCP - General 10/23/22 04/10/23 Provider, None [place] PCP - General 04/11/23 Provider, Unknown UNKNOWN 04/11/23 Lanie Whitaker, PRINCIPAL MECHANICAL ENGINEER [place] Industrial Economics Teacher 01/26/21 12/17/21 documented as of this encounter
--- OUTSIDE RECORDS SUMMARY | 2025-04-08 21:59 | XMS_ITS | Encounter Summary ---
Author Organization [facility] Address [address] [place] [address] Phone Care Team Providers Care In Home Sales Representative Name Role Phone Yaw Sol MD Primary Care Provider [phone] Provider, Unknown Primary Care Provider Unavaila ble Provider, None Primary Care Provider Unavailabl e Provider, Unknown Unavailable Unavailable Reason for Visit * Reason Comments Medication Refill Encounter Details Date Type Department Care Team (Late st Contact Info) Description 07/31/2022 Refill [facility] [address] [place] [phone] Yaw Sol MD [address] [place] [address] Medication Refill Social History Tobacco Use Types [...] documented as of this encounter Care Teams In Home Sales Representative Relationship Specialty Start Date End Date Yaw Sol MD PCP - General Family Medicine 06/18/20 10/18/22 Provider, Unknown UNKNOWN PCP - General 10/23/22 04/10/23 Provider, None [place] PCP - General 04/11/23 Provider, Unknown UNKNOWN 04/11/23 documented as of this encounter
--- OUTSIDE RECORDS SUMMARY | 2025-04-08 21:59 | XMS_ITS | Encounter Summary ---
Author Organization [facility] Address [address] [place] [address] Phone Care Team Providers Care Finish Specialist Name Role Phone Yaw Sol MD Primary Care Provider Provider, Unknown Primary Care Provider Unavaila ble Provider, None Primary Care Provider Unavailabl e Provider, Unknown Unavailable Unavailable Reason for Visit * Reason Comments Medication Refill Encounter Details Date Type Department Care Team (Late st Contact Info) Description 07/02/2022 Refill [facility] [address] [place] [address] Yaw Sol MD [address] [place] [address] Medication Refill Social History Tobacco Use Types [...] Chey Crane RMA - 07/05/2022 9:19 AM MANAGEMENT ADVISOR Mailed letter GEMENT ADVISOR * Telephone Encounter - Kristina Cotton RN - 07/02/2022 5:19 PM CST Needs OV with PCP GEMENT ADVISOR * Telephone Encounter - Kristina Cotton RN [...] LDL, HDLCHOLESTE, CHOLESTEROL, TRIGLYCRIDES, VLDL, CHDL, HDLNON GEMENT ADVISOR documented in this encounter Plan of Treatment [...] documented as of this encounter Care Teams Finish Specialist Relationship Specialty Start Date End Date Yaw Sol MD PCP - General Family Medicine 06/18/20 10/18/22 Provider, Unknown UNKNOWN PCP - General 10/23/22 04/10/23 Provider, None [place] PCP - General 04/11/23 Provider, Unknown UNKNOWN 04/11/23 documented as of this encounter
--- OUTSIDE RECORDS SUMMARY | 2025-04-08 21:59 | XMS_ITS | Encounter Summary ---
Author Organization [facility] Address [address] [place] [address] Phone Care Team Providers Care Director Property Name Role Phone Yaw Sol MD Primary Care Provider [phone] Provider, Unknown Primary Care Provider Unavaila ble Provider, None Primary Care Provider Unavailabl e Provider, Unknown Unavailable Unavailable Lanie Whitaker Unavailable Unavailab le Reason for Visit * Reason Comments Medication Refill Encounter Details Date Type Department Care Team (Late st Contact Info) Description 11/27/2021 Refill [facility] - Family Medicine [facility] [address] [place] [address] Darek Salamanca, RAFITA, EQUIPMENT APPLICATION SPECIALIST [address] [address] Medication Refill Social History Tobacco Use Types [...] as of this encounter Care Teams Director Property Relationship Specialty Start Date End Date Yaw Sol MD PCP - General Family Medicine 06/18/20 10/18/22 Provider, Unknown UNKNOWN PCP - General 10/23/22 04/10/23 Provider, None [place] PCP - General 04/11/23 Provider, Unknown UNKNOWN 04/11/23 Lanie Whitaker, ARIES [place] Clerk Entry Level 01/26/21 12/17/21 documented as of this encounter
--- OUTSIDE RECORDS SUMMARY | 2025-04-08 21:59 | XMS_ITS | Clinical Summary ---
Author Organization [facility] Address [address] [place] [address] Care Team Providers Care Intelligence Engineer Name Role Phone Unavailable Primary Care Provider Unavailabl e Source Comments [facility],non-owned Affiliates and Associated Physician Practices is amultiple site organization consisting of ambulatory clinics and hospital sitesin [place], [place], [place]. This disclosure is being madepursuant to the Care Everywhere program and may not contain all information available regarding this patient. Last updated 18.[facility] Allergies No known active allergies Medications * [...] on file Legal Sex Male 4:51 PM MAINFRAME SYSTEMS ADMINISTRATOR Gender Identity Not on file Sexual Orientation Not on file Last Filed Vital Signs Vital Sign Reading Time Taken Comments Blood Pressure 116/62 06/06/2019 7:10 AM MAINFRAME SYSTEMS ADMINISTRATOR Pulse 61 06/06/2019 7:10 AM MAINFRAME SYSTEMS ADMINISTRATOR Temperature 36.1 C (96.9 F) 06/06/2019 7:10 AM MAINFRAME SYSTEMS ADMINISTRATOR Respiratory Rate 20 06/06/2019 10:14 AM MAINFRAME SYSTEMS ADMINISTRATOR Oxygen Saturation 99% 06/06/2019 7:10 AM MAINFRAME SYSTEMS ADMINISTRATOR Inhaled Oxygen Concentration - - Weight 77.1 kg (170 lb) 06/06/2019 7:10 AM MAINFRAME SYSTEMS ADMINISTRATOR Height 167.6 cm (5' 6) 06/06/2019 7:10 AM MAINFRAME SYSTEMS ADMINISTRATOR Body Mass Index 27.44 06/06/2019 7:10 AM MAINFRAME SYSTEMS ADMINISTRATOR Plan of Treatment Health Maintenance Due Date [...] DEPRESSION SCREENING 05/02/2024 COVID-19 VACCINE (1 - 2024-2 6 season) 2024 INFLUENZA VACCINE (#1) 2024 Respiratory [...]
--- OUTSIDE RECORDS SUMMARY | 2025-04-08 21:59 | XMS_ITS | Clinical Summary ---
Author Organization [facility] Address [address] [place] [address] Care Team Providers Care Property Accountant Name Role Phone Miscellaneous, Not In File [...] as needed Cerebrovascular accident (CVA) ([facility] Assessment & Plan (10/14/2021 12:45 AM CDT): H/o L MCA CVA. Patient had expressive aphasia and right sided weakness from review of EMR. Unclear what residual deficits patient had. Patient also reports being admitted 1 month ago at [facility] for CVA. Will need to obtain records. [...] need MRI to r/o new CVA. SUPERVISOR MAIL CARRIERS consulted. Will need to obtain records from patient's admission 1month ago at [facility]. Encounters Date Type Department Care Team Description 03/07/2025 5:39 AM COMMERCIAL PAINTER - 03/07/2025 5:44 AM COMMERCIAL PAINTER Emergency [facility] [address] [place] [address] Apolinar Mujica MD Malingering (Primary Dx); Aggressive behavior Discharge Disposition: Discharge to home or self care 02/26/2025 12:53 AM CDT - 02/26/2025 2:02 AM CDT Emergency [facility] [address] [place] [address] Arthritis (Primary Dx) Discharge Disposition: Discharge to home or self care 02/22/2025 4:54 PM CDT - 02/22/2025 7:02 PM CDT Emergency [facility] [address] [place] [address] Primary osteoarthritis of right knee (Primary Dx) [...] on file Legal Sex Male 7:03 PM COMMERCIAL PAINTER Gender Identity Not on file Sexual Orientation Not on file Last Filed Vital Signs Vital Sign Reading Time Taken Comments Blood Pressure 121/68 03/07/2025 3:55 AM COMMERCIAL PAINTER Pulse 67 03/07/2025 3:55 AM COMMERCIAL PAINTER Temperature 36.7 C (98 F) 03/07/2025 3:55 AM COMMERCIAL PAINTER Respiratory Rate 18 03/07/2025 3:55 AM COMMERCIAL PAINTER Oxygen Saturation 100% 03/07/2025 3:55 AM COMMERCIAL PAINTER Inhaled Oxygen Concentration - - Weight 79.4 kg (175 lb 0.7 oz) 03/07/2025 1:32 A M COMMERCIAL PAINTER Height 167.6 cm (5' 5.98) 03/07/2025 1:32 AM CS T Body Mass Index 28.27 03/07/2025 1:32 AM COMMERCIAL PAINTER Plan of Treatment Health Maintenance Due Date [...] OR 2 VIEWS ED 03/07/2025 2:29 AM COMMERCIAL PAINTER XR KNEE RIGHT 1 OR 2 VIEWS ED Urgent/IP Urgent 02/22/2025 6:[address] ABDOMEN PELVIS W CONTRAST ED 05/24/2020 6:38 PM COMMERCIAL PAINTER from Last 3 Months or Most Recently Relevant to Health Maintenance Results * XR Knee Right 1 or 2 Views (03/07/2025 2:29 AM COMMERCIAL PAINTER) Anatomical Region Laterality Modality Lower Extremities, Knee Right Computed Radiography 03/07/2025 2:49 AM COMMERCIAL PAINTER Impressions 03/07/2025 9:39 AM COMMERCIAL PAINTER FINDINGS/IMPRESSION: No acute fracture or dislocation. Severe patellofemoral compartment predominant tricompartmental right knee osteoarthritis. Increased overlying soft tissue swelling. Unchanged moderate to large knee joint effusion. Vascular calcifications. Dictated by: Marilynn Goyal MD The radiology attending physician has personally reviewed this study, and had reviewed and/or edited this written report and agrees with it. Electronically signed by: Jessica Swarzt M.D. Narrative 03/07/2025 9:39 AM COMMERCIAL PAINTER EXAMINATION: XR KNEE RIGHT 1 OR 2 VIEWS HISTORY: Fall COMPARISON: 02/22/2025 Procedure Note Jessica Sawrtz MD - 03/07/2025 EXAMINATION: XR KNEE RIGHT [...] Abdomen Pelvis W Contrast (05/24/2020 6:38 PM COMMERCIAL PAINTER) Anatomical Region Laterality Modality Body N/A Computed Tomogra phy 05/24/2020 6:28 PM COMMERCIAL PAINTER Impressions 05/24/2020 6:52 PM COMMERCIAL PAINTER No acute inflammatory process is noted. No cholecystitis. Normal appendix. Diverticulosis without diverticulitis THIS IS AN ELECTRONICALLY VERIFIED FINAL REPORT 05/24/2020 6:48 PM - Electronically signed by Alvino Cruz M.D. NC: RI Report ID: [id number] Reading Location: [id number] [facility] 05/24/2020 6:52 PM COMMERCIAL PAINTER [facility] Imaging Result Name: BRII CISSE Ordering Phys: TRI GÓMEZ Age: 69 Date of : 1950 Accession Number: [id number] Date of Service: 05/24/2020 Gender: M EXAM [...] Procedure Note Alvino Cruz MD - 05/24/2020 [facility] Imaging Result Name: BETITO BRII Flor Ordering Phys: TRI GÓMEZ Age: 69 Date of : 1950 Accession Number: [id number] Date of Service: 05/24/2020 Gender: M EXAM [...] Alvino Cruz M.D. NC: JESSIE Report ID: [id number] Reading Location: [id number] Tri Gómez MD IMG CT PROCEDURES F inal Result from Last 3 Months or Most Recently Relevant to Health Maintenance Insurance [facility] IDMO [facility] MEDICARE [facility] Address: [address] [address] [place] [address] IDPA [facility] MEDICARE [facility] Address: [facility] [address] [place] [address] Advance Directives For more information, please contact: [phone] * Full Code (Latest Code Status on [...] 11:22 AM 09/24/2018 5:51 PM Care Teams Property Accountant Relationship Specialty [place] [address] [facility] [id number] [place] [address] PCP - General Family Medicine 05/24/20 Miscellaneous, Not In File 08/20/18
--- OUTSIDE RECORDS SUMMARY | 2025-04-08 21:59 | XMS_ITS | Encounter Summary ---
Author Organization [facility] Address [address] [place] [address] Phone Care Team Providers Care Labor Relations Specialist Name Role Phone Yaw Sol MD Primary Care Provider [phone] Provider, Unknown Primary Care Provider Unavaila ble Provider, None Primary Care Provider Unavailabl e Provider, Unknown Unavailable Unavailable Reason for Visit * Reason Comments Medication Refill Encounter Details Date Type Department Care Team (Late st Contact Info) Description 08/27/2022 Refill [facility] [address] [place] [phone] Yaw Sol MD [address] [place] [address] Medication Refill Social History Tobacco Use Types [...] Provider Dept 09/10/22 Appointment Yaw Sol MD [facility] Showing future appointments within next [...] documented as of this encounter Care Teams Labor Relations Specialist Relationship Specialty Start Date End Date Yaw Sol MD PCP - General Family Medicine 06/18/20 10/18/22 Provider, Unknown UNKNOWN PCP - General 10/23/22 04/10/23 Provider, None [place] PCP - General 04/11/23 Provider, Unknown UNKNOWN 04/11/23 documented as of this encounter
--- OUTSIDE RECORDS SUMMARY | 2025-04-08 21:59 | XMS_ITS | Encounter Summary ---
Author Organization [facility] Address [address] [place] [address] Phone Care Team Providers Care Lunch Truck Operator Name Role Phone Yaw Sol MD Primary Care Provider [phone] Provider, Unknown Primary Care Provider Unavaila ble Provider, None Primary Care Provider Unavailabl e Provider, Unknown Unavailable Unavailable Reason for Visit * Reason Comments Medication Refill Encounter Details Date Type Department Care Team (Late st Contact Info) Description 06/25/2022 Refill [facility] [address] [place] [address] Yaw Sol MD [address] [place] [address] Medication Refill Social History Tobacco Use Types [...] Na Bustamante RN - 06/28/2022 8:21 AM CRAPS DEALER Patient needs appointment. Medication failed the protocol, [...] 90 days and meeting all other requirements S DEALER documented in this encounter Plan of Treatment [...] documented as of this encounter Care Teams Lunch Truck Operator Relationship Specialty Start Date End Date Yaw Sol MD PCP - General Family Medicine 06/18/20 10/18/22 Provider, Unknown UNKNOWN PCP - General 10/23/22 04/10/23 Provider, None [place] PCP - General 04/11/23 Provider, Unknown UNKNOWN 04/11/23 documented as of this encounter
[2025-04-08 22:05] VITALS: BP 148/76; PULSE 78; RESP 18; TEMP 36.9; O2SAT 98
== END 2025-04-08 22:06 | disposition home or self-care (01) ==
LOC: ANHED 21:57
PROVIDERS: Emergency Provider Physician Assistant
DX: M17.11 Unilateral primary osteoarthritis, right knee (principal); M25.561 Pain in right knee; F17.210 Nicotine dependence, cigarettes, uncomplicated; F41.9 Anxiety disorder, unspecified; F32.A Depression, unspecified; I50.9 Heart failure, unspecified
CPT/HCPCS: 73564; 99283; A9270

== ENCOUNTER 2025-04-10 19:49 | Emergency (ER) | payer MEDICARE, MEDICAID, SELFPAY ==
--- NOTE | ~2025-04-10 | XR_ITS ---
EXAMINATION: XR chest 2V DATE: 04/10/2025 20:18 INDICATION: Shortness of breath. TECHNIQUE: Frontal and lateral views of the chest were obtained. COMPARISON: Chest x-ray dated 02/13/2025 FINDINGS: Heart size is normal. Atherosclerotic aorta. Lungs are free of acute processes. IMPRESSION: 1. No acute pulmonary findings. Atherosclerotic aorta. Reviewed, dictated and finalized at location [facility]
[2025-04-10 19:50] VITALS: BP 116/55; PULSE 96; RESP 15; TEMP 36.9; O2SAT 98
--- NOTE | 2025-04-10 19:54 | ECG_ITS ---
Test Date: 2025-04-10 20:00:41 Measurements Intervals [place] Rate: 88 P: 67 TX: 180 QRS: 58 QRSD: 94 T: 69 QT: 346 QTc: 419 Interpretive Statements SINUS RHYTHM POSSIBLE LEFT ATRIAL ENLARGEMENT BORDERLINE ECG Compared to ECG 02/20/2025 21:24:47 No significant changes Electronically Signed On 04-10-2025 20:04:46 INTEGRATED PROGRAM TEACHER by Cody Stevens D.O.
[2025-04-10 21:06] LABS: Hematocrit 39.0 % (42.0-52.0); Hemoglobin 12.3 g/dL (14.0-18.0); Immature Granulocyte Percent A 0.2 % (0-0.5); Lymphocytes Absolute Auto 1.93 K/mm3 (0.9-3.2); Mean Corpuscular HGB Conc 31.5 g/dl (32-36); Mean Corpuscular Hemoglobin 29.6 pg (26-34); Mean Corpuscular Volume 94.0 fl (80-100); Nucleated Red Blood Cells Absolute Auto 0.000 K/mm3 (0.0-0.012); Nucleated Red Blood Cells Perc 0.0 % (0.0-0.2); Platelet Count Result 230 k/mm3 (150-375); Red Blood Count 4.15 M/mm3 (4.6-6.20); White Blood Count 6.0 K/mm3 (4.5-10.0)
[2025-04-10 21:17] LABS: Alanine Aminotransferase 16 U/L (6-50); Albumin Level 3.8 g/dL (3.5-5.1); Alkaline Phosphatase 66 U/L (38-126); Anion Gap 5 mmol/L (4-12); Aspartate Amino Transferase 23 U/L (17-59); Bilirubin,Total 0.5 mg/dL (0.2-1.3); Blood Urea Nitrogen 27 mg/dL (9-20); Calcium 8.2 mg/dL (8.4-10.2); Carbon Dioxide 24 mmol/L (22-30); Chloride 110 mmol/L (98-107); Estimated Glomerular Filt Rate > 60; Glucose 149 mg/dL (65-110); Potassium 3.7 mmol/L (3.4-5.0); Sodium 139 mmol/L (137-145); Total Protein 7.2 g/dL (6.3-8.2)
--- OUTSIDE RECORDS SUMMARY | 2025-04-10 21:25 | XMS_ITS | Encounter Summary ---
Author Organization [facility] Address [address] [place] [address] Phone Care Team Providers Care Dowel Maker Name Role Phone Yaw Sol MD Primary Care Provider [phone] Provider, Unknown Primary Care Provider Unavaila ble Provider, None Primary Care Provider Unavailabl e Provider, Unknown Unavailable Unavailable Lanie Whitaker Unavailable Unavailab le Reason for Visit * Reason Comments Medication Refill Encounter Details Date Type Department Care Team (Late st Contact Info) Description 11/27/2021 Refill [facility] - Family Medicine [facility] [address] [place] [address] Darek Salamanca, RAFITA, OUTSIDE SALES CONSULTANT [address] [address] Medication Refill Social History Tobacco Use Types [...] documented as of this encounter Care Teams Dowel Maker Relationship Specialty Start Date End Date Yaw Sol MD PCP - General Family Medicine 06/18/20 10/18/22 Provider, Unknown UNKNOWN PCP - General 10/23/22 04/10/23 Provider, None [place] PCP - General 04/11/23 Provider, Unknown UNKNOWN 04/11/23 Lanie Whitaker, ARIES [place] Thread Singer 01/26/21 12/17/21 documented as of this encounter
--- OUTSIDE RECORDS SUMMARY | 2025-04-10 21:25 | XMS_ITS | Encounter Summary ---
Author Organization [facility] Address [address] [place] [address] Phone Care Team Providers Care Managed Care Provider Name Role Phone Yaw Sol MD Primary Care Provider [phone] Provider, Unknown Primary Care Provider Unavaila ble Provider, None Primary Care Provider Unavailabl e Provider, Unknown Unavailable Unavailable Lanie Whitaker QUALITY ASSURANCE DIRECTOR Unavailable Unavailab le Reason for Visit * Reason Comments Medication Refill Encounter Details Date Type Department Care Team (Late st Contact Info) Description 10/28/2021 Refill [facility] - Family Medicine [facility] [address] [place] [address] Yaw Sol MD [address] [place] [address] Medication Refill Social History Tobacco Use Types [...] [facility] 11/12/20 Office Visit Darek Salamanca, WELL SERVICES OPERATOR, STUNT MAN [facility] Showing recent visits within past 365 days [...] [place] 11/12/20 Office Visit Darek Salamanca APRN, STUNT MAN [facility] Showing recent visits within past 365 [...] documented as of this encounter Care Teams Managed Care Provider Relationship Specialty Start Date End Date Yaw Sol MD PCP - General Family Medicine 06/18/20 10/18/22 Provider, Unknown UNKNOWN PCP - General 10/23/22 04/10/23 Provider, None [place] PCP - General 04/11/23 Provider, Unknown UNKNOWN 04/11/23 Lanie Whitaker, QUALITY ASSURANCE DIRECTOR [place] [employer] 01/26/21 12/17/21 documented as of this encounter
--- OUTSIDE RECORDS SUMMARY | 2025-04-10 21:25 | XMS_ITS | Clinical Summary ---
Author Organization [facility] Address [address] [address] Phone Care Team Providers Care Bun Icer Name Role Phone Provider, None Primary Care [...] Pf, 3 0 Mcg/0.3 Ml Dose ([employer]) 06/05/2021 TDAP Vaccine 06/02/2020,01/02/2019,12/08/2016 Tuberculin Skin Test; [...] Screening 12/13/1996 Immunochemical Fecal Occult Blood 12/13/1996 Respiratory Syncytial Virus (RSV) Immunization (Adult) (1 - Risk 50-74 years 1-dose series) 12/13/2001 Zoster Immunization (1 of 2) 12/13/2001 Influenza Immunization (#1) 2024 05/24/2018 SARS-COV-2 Immunization (2 - season) 2024 06/05/2021 Td Immunization Every 10 Yea rs (Adults With 1 Tdap) 06/02/2030 06/02/2020, 01/02/2019, 12/08/2016 DTaP/Tdap/Td Immunization Discontinued 2020, 01/02/2019, 12/08/2016 Hepatitis B Immunization Aged Out No longer eligible based on patient's age to complete this topic Human Papillomavirus (HPV) Immunization (No Doses Required) Completed Meningococcal Immunization (ACWY) Aged Out No longer eligible based on patient's age to complete this topic Rotavirus Immunization Aged Out No lo nger eligible based on patient's age to complete this topic Insurance MEDICAID [place] MEDICARE C [facility] Advance Directives * Full Code (Latest Code Status on File) Date Activated Date Inactivated Comments 11/26/2020 10:26 AM 07/22/2021 4:56 AM Care Teams Bun Icer Relationship Specialty Start Date End Date Provider, None [place] PCP - General 04/11/23 Provider, Unknown UNKNOWN 04/11/23
--- OUTSIDE RECORDS SUMMARY | 2025-04-10 21:25 | XMS_ITS | Clinical Summary ---
Author Organization [facility] Address [address] [place] [address] Care Team Providers Care Registry Np Name Role Phone Unavailable Primary Care Provider Unavailabl e Source Comments [facility] [employer],non-owned Affiliates and Associated Physician Practices is amultiple site organization consisting of ambulatory clinics and hospital sitesin [place], [place], [place] and [place]. This disclosure is being madepursuant to the Care Everywhere program and may not contain all information available regarding this patient. 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 SPECIALIST Gender Identity Not on file Sexual Orientation Not on file Last Filed Vital Signs Vital Sign Reading Time Taken Comments Blood Pressure 116/62 06/06/2019 7:10 AM WAREHOUSE SPECIALIST Pulse 61 06/06/2019 7:10 AM WAREHOUSE SPECIALIST Temperature 36.1 C (96.9 F) 06/06/2019 7:10 AM WAREHOUSE SPECIALIST Respiratory Rate 20 06/06/2019 10:14 AM WAREHOUSE SPECIALIST Oxygen Saturation 99% 06/06/2019 7:10 AM WAREHOUSE SPECIALIST Inhaled Oxygen Concentration - - Weight 77.1 kg (170 lb) 06/06/2019 7:10 AM WAREHOUSE SPECIALIST Height 167.6 cm (5' 6) 06/06/2019 7:10 AM WAREHOUSE SPECIALIST Body Mass Index 27.44 06/06/2019 7:10 AM WAREHOUSE SPECIALIST Plan of Treatment Health Maintenance Due Date [...]
--- OUTSIDE RECORDS SUMMARY | 2025-04-10 21:25 | XMS_ITS | Encounter Summary ---
Author Organization [facility] Address [address] [place] [address] Phone Care Team Providers Care Community Nurse Name Role Phone Yaw Sol MD Primary Care Provider [phone] Provider, Unknown Primary Care Provider Unavaila ble Provider, None Primary Care Provider Unavailabl e Provider, Unknown Unavailable Unavailable Reason for Visit * Reason Comments Medication Refill Encounter Details Date Type Department Care Team (Late st Contact Info) Description 06/25/2022 [facility]ill [facility] [address] [place] [phone] Yaw Sol MD [address] [place] [address] Medication Refill Social History Tobacco Use Types [...] Na Bustamante RN - 06/28/2022 8:21 AM STAFFING DIRECTOR Patient needs appointment. Medication failed the protocol, [...] 90 days and meeting all other requirements FING DIRECTOR documented in this encounter Plan of Treatment [...] documented as of this encounter Care Teams Community Nurse Relationship Specialty Start Date End Date Yaw Sol MD PCP - General Family Medicine 06/18/20 10/18/22 Provider, Unknown UNKNOWN PCP - General 10/23/22 04/10/23 Provider, None [place] PCP - General 04/11/23 Provider, Unknown UNKNOWN 04/11/23 documented as of this encounter
--- OUTSIDE RECORDS SUMMARY | 2025-04-10 21:26 | XMS_ITS | Encounter Summary ---
Author Organization [facility] Address [address] [place] [address] Phone Care Team Providers Care Media Production Manager Name Role Phone Yaw Sol MD Primary Care Provider [phone] Provider, Unknown Primary Care Provider Unavaila ble Provider, None Primary Care Provider Unavailabl e Provider, Unknown Unavailable Unavailable Reason for Visit * Reason Comments Medication Refill Encounter Details Date Type Department Care Team (Late st Contact Info) Description 08/27/2022 Refill [facility] Medicine [facility] [address] [place] [phone] Yaw Sol MD [address] [place] [address] Medication Refill Social History Tobacco Use Types [...] 09/10/22 Appointment Yaw Sol MD [facility] Showing future appointments within next 90 days [...] documented as of this encounter Care Teams Media Production Manager Relationship Specialty Start Date End Date Yaw Sol MD PCP - General Family Medicine 06/18/20 10/18/22 Provider, Unknown UNKNOWN PCP - General 10/23/22 04/10/23 Provider, None [place] PCP - General 04/11/23 Provider, Unknown UNKNOWN 04/11/23 documented as of this encounter
--- OUTSIDE RECORDS SUMMARY | 2025-04-10 21:26 | XMS_ITS | Clinical Summary ---
Author Organization [facility] Address [address] [place] [address] Care Team Providers Care Grade Recorder Name Role Phone Miscellaneous, Not In File Unavailable Heatehrva Eddie Delgado MD Primary Care Provider Unav [...] with motrin as needed Cerebrovascular accident (CVA) ([facility]) Assessment & Plan (10/14/2021 12:45 AM CDT): H/o L MCA CVA. Patient had expressive aphasia and right sided weakness from review of EMR. Unclear what residual deficits patient had. Patient also reports being admitted 1 month ago at [facility] for CVA. Will need to obtain records. [...] may need MRI to r/o new CVA. OPERATIONS FORESTER consulted. Will need to obtain records from patient's admission 1month ago at [facility]. Encounters Date Type Department Care Team Description 03/07/2025 5:39 AM MOTORBOAT MECHANIC HELPER - 03/07/2025 5:44 AM MOTORBOAT MECHANIC HELPER Emergency [facility] Emergency Department [address] [place] [address] Apolinar Mujica MD Malingering (Primary Dx); Aggressive behavior Discharge Disposition: Discharge to home or self care 02/26/2025 12:53 AM CDT - 02/26/2025 2:02 AM CDT Emergency [facility] Emergency Department [address] [place] [address] Arthritis (Primary Dx) Discharge Disposition: Discharge to home or self care 02/22/2025 4:54 PM CDT - 02/22/2025 7:02 PM CDT Emergency [facility] Emergency Department [address] [place] [address] Primary osteoarthritis of right knee (Primary Dx) [...] on file Legal Sex Male 7:03 PM MOTORBOAT MECHANIC HELPER Gender Identity Not on file Sexual Orientation Not on file Last Filed Vital Signs Vital Sign Reading Time Taken Comments Blood Pressure 121/68 03/07/2025 3:55 AM MOTORBOAT MECHANIC HELPER Pulse 67 03/07/2025 3:55 AM MOTORBOAT MECHANIC HELPER Temperature 36.7 C (98 F) 03/07/2025 3:55 AM MOTORBOAT MECHANIC HELPER Respiratory Rate 18 03/07/2025 3:55 AM MOTORBOAT MECHANIC HELPER Oxygen Saturation 100% 03/07/2025 3:55 AM MOTORBOAT MECHANIC HELPER Inhaled Oxygen Concentration - - Weight 79.4 kg (175 lb 0.7 oz) 03/07/2025 1:32 A M MOTORBOAT MECHANIC HELPER Height 167.6 cm (5' 5.98) 03/07/2025 1:32 AM CS T Body Mass Index 28.27 03/07/2025 1:32 AM MOTORBOAT MECHANIC HELPER Plan of Treatment Health Maintenance Due Date [...] OR 2 VIEWS ED 03/07/2025 2:29 AM MOTORBOAT MECHANIC HELPER XR KNEE RIGHT 1 OR 2 VIEWS ED Urgent/IP Urgent 02/22/2025 6:[address] ABDOMEN PELVIS W CONTRAST ED 05/24/2020 6:38 PM MOTORBOAT MECHANIC HELPER from Last 3 Months or Most Recently Relevant to Health Maintenance Results * XR Knee Right 1 or 2 Views (03/07/2025 2:29 AM MOTORBOAT MECHANIC HELPER) Anatomical Region Laterality Modality Lower Extremities, Knee Right Computed Radiography 03/07/2025 2:49 AM MOTORBOAT MECHANIC HELPER Impressions 03/07/2025 9:39 AM MOTORBOAT MECHANIC HELPER FINDINGS/IMPRESSION: No acute fracture or dislocation. Severe [...] Jessica Swartz M.D. Narrative 03/07/2025 9:39 AM MOTORBOAT MECHANIC HELPER EXAMINATION: XR KNEE RIGHT 1 OR 2 [...] Abdomen Pelvis W Contrast (05/24/2020 6:38 PM MOTORBOAT MECHANIC HELPER) Anatomical Region Laterality Modality Body N/A Computed Tomogra phy 05/24/2020 6:28 PM MOTORBOAT MECHANIC HELPER Impressions 05/24/2020 6:52 PM MOTORBOAT MECHANIC HELPER No acute inflammatory process is noted. No cholecystitis. Normal appendix. Diverticulosis without diverticulitis THIS IS AN ELECTRONICALLY VERIFIED FINAL REPORT 05/24/2020 6:48 PM - Electronically signed by Alvino Cruz M.D. [place]: [place] Report ID: [id number] Reading Location: [id number] [facility] 05/24/2020 6:52 PM MOTORBOAT MECHANIC HELPER [facility] Imaging Result Name: BRII CISSE Ordering Phys: TRI GÓMEZ Age: 69 Date of : 1950 Accession Number: [id number] Date of Service: 05/24/2020 Gender: M EXAM [...] Procedure Note Alvino Cruz MD - 05/24/2020 [facility] Imaging Result Name: BETITO BRII Flor Ordering Phys: TRI GÓMEZ Age: 69 Date of : 1950 Accession Number: [id number] Date of Service: 05/24/2020 Gender: M EXAM [...] Alvino Cruz M.D. NC: JESSIE Report ID: [id number] Reading Location: [id number] Tri Gómez MD IMG CT PROCEDURES F inal Result from Last 3 Months or Most Recently Relevant to Health Maintenance Insurance [facility] MEDIC[facility] ADVANTAGE [facility] MEDIC[facility] ADVANTAGE Advance Directives For more information, please contact: [phone] * Full Code (Latest Code Status on [...] 11:22 AM 09/24/2018 5:51 PM Care Teams Grade Recorder Relationship Specialty [place] [id number] [facility] [id number] [place] [address] PCP - General Family Medicine 05/24/20 Miscellaneous, Not In File 08/20/18
--- OUTSIDE RECORDS SUMMARY | 2025-04-10 21:26 | XMS_ITS | Encounter Summary ---
Author Organization [facility] Address [address] [place] [address] Phone Care Team Providers Care Business Operations Director Name Role Phone Yaw Sol MD Primary Care Provider [phone] Provider, Unknown Primary Care Provider Unavaila ble Provider, None Primary Care Provider Unavailabl e Provider, Unknown Unavailable Unavailable Reason for Visit * Reason Comments Medication Refill Encounter Details Date Type Department Care Team (Late st Contact Info) Description 07/02/2022 Refill [facility] Family [facility] [address] [place] [phone] Yaw Sol MD [address] [place] [address] Medication Refill Social History Tobacco Use Types [...] Chey Crane RMA - 07/05/2022 9:19 AM FLY WINDER Mailed letter WINDER * Telephone Encounter - Kristina Cotton RN - 07/02/2022 5:19 PM CST Needs OV with PCP WINDER * Telephone Encounter - Kristina Cotton RN [...] LDL, HDLCHOLESTE, CHOLESTEROL, TRIGLYCRIDES, VLDL, CHDL, HDLNON WINDER documented in this encounter Plan of Treatment [...] as of this encounter Care Teams Business Operations Director Relationship Specialty Start Date End Date Yaw Sol MD PCP - General Family Medicine 06/18/20 10/18/22 Provider, Unknown UNKNOWN PCP - General 10/23/22 04/10/23 Provider, None [place] PCP - General 04/11/23 Provider, Unknown UNKNOWN 04/11/23 documented as of this encounter
--- OUTSIDE RECORDS SUMMARY | 2025-04-10 21:26 | XMS_ITS | Encounter Summary ---
Author Organization [facility] Address [address] [place] [address] Phone Care Team Providers Care Corporate Manager Name Role Phone Yaw Sol MD Primary Care Provider Provider, Unknown Primary Care Provider Unavaila ble Provider, None Primary Care Provider Unavailabl e Provider, Unknown Unavailable Unavailable Reason for Visit * Reason Comments Medication Refill Encounter Details Date Type Department Care Team (Late st Contact Info) Description 07/31/2022 Refill [facility] - Family Medicine [facility] [address] [place] [phone] Yaw Sol MD [address] [place] [address] Medication Refill Social History Tobacco Use Types [...] to schedule * Telephone Encounter - Chey rCane RMA - 08/03/2022 2:53 PM CDT LVM [...] documented as of this encounter Care Teams Corporate Manager Relationship Specialty Start Date End Date Yaw Sol MD PCP - General Family Medicine 06/18/20 10/18/22 Provider, Unknown UNKNOWN PCP - General 10/23/22 04/10/23 Provider, None [place] PCP - General 04/11/23 Provider, Unknown UNKNOWN 04/11/23 documented as of this encounter
[2025-04-10 21:29] LABS: Troponin I < 0.012 ng/mL (0.000-0.034)
[2025-04-10 21:42] LABS: Influenza A QL RT-PCR Negative (Negative); Influenza B QL RT-PCR Negative (Negative); RSV RNA, RT-PCR Negative (Negative); SARS-CoV-2 RNA PCR Negative (Negative)
[2025-04-10 22:02] VITALS: BP 117/57; PULSE 78; RESP 17; TEMP 36.4; O2SAT 98
[2025-04-10 22:32] VITALS: BP 117/65; PULSE 82; RESP 17
--- NOTE | 2025-04-10 22:38 | ED_ITS ---
HPI - General Adult General Chief complaint: Shortness of Breath/Dyspnea Stated complaint: I can't hardly breathe Time Seen by Provider: 04/10/25 22:23 Source: patient Mode of arrival: ambulatory Limitations: no limitations History of Present Illness HPI narrative: Patient is a 74-year-old male presents to the emergency department complaining of stomach hurting and right knee pain. Patient notes that his stomach hurting feels like it is empty, has not eaten anything recently, admits to nausea, denies any vomiting. Patient also notes he is having right knee pain, been going on for a while, denies any injuries. Notes that his knee is [id number]. Denies any fevers. Denies seeing an orthopedic doctor. Related Data Home Medications ?Medication ?Instructions ?Recorded ?Confirmed ?Last Taken ?Type naproxen 500 mg tablet 500 mg PO BID PRN Pain (Scal e 12/01/23 12/01/23 Unknown History Score 1-3) Allergies Allergy/AdvReac Type Severity Reaction Status Date / Time No Known Allergies Allergy Verified 04/08/25 20:42 Review of Systems 2 Review of Systems: A 10 system review of systems was completed on the patient and is negative except for what is stated in the HPI. Nursing and ancillary documentation was reviewed. [facility] Past Medical History Medical History Cocaine abuse Tobacco abuse Normocytic anemia History of depression History of anxiety History of CHF (congestive heart failure) Arthritis Surgical History Surgical History History of left knee replacement Social History Social History Smoking packs per day: 1 Smoking cigarettes per day: 20.0 Smoking status: Current every day smoker Alcohol intake: never Substance use: current Substance use type: crack/cocaine Last use: POSITIVE LABS ON ADMISSION Lack of Transportation: YES Lack of Food: Sometimes True Current Housing: I Do Not Have Housing Concerned About Future Housing: YES Difficulty Paying Gas/Electric Bills: YES Difficulty Paying for Meds: YES Currently Unemployed: YES Education: Don't Know Difficulty w/ Childcare or Family Care: No Gender identity (if verbalized by the patient): Male Spiritual care concerns: No Exam 2 Narrative: CONST: No acute distress. HENMT: Head is normocephalic and atraumatic. Tacky mucous membranes. No posterior oropharynx erythema. EYES: No scleral icterus. No conjunctival injection or pallor. PERRL. NECK: No meningeal signs. RESP: Able to speak in full sentences. Normal respiratory effort. CTAB. CARDIO: Regular rate. Regular rhythm. 2+ DP and radial pulses bilaterally. GI: Nondistended. No tenderness to palpation. Soft. : No CVA tenderness to palpation. SKIN: No rashes or lesions noted on exposed skin. NEURO: Oriented x3. Moves all extremities. EXTREM/MSK/BACK: No pedal edema. Bilateral knee effusions present, no significant tenderness to palpation, no warmth or erythema. PSYCH: Normal affect. Course Vital Signs Vital signs: Vital Signs Temperature 98.5 F 04/10/25 19:50 Pulse Rate 96 04/10/25 19:50 Respiratory Rate 15 04/10/25 19:50 Blood Pressure 116/55 L 04/10/25 19:50 Pulse Oximetry 98 04/10/25 19:50 Oxygen Delivery Room Air 04/10/25 19:50 Temperature 98 F 04/11/25 00:00 Pulse Rate 82 04/11/25 00:00 Respiratory Rate 17 04/11/25 00:00 Blood Pressure 115/63 04/11/25 00:00 Pulse Oximetry 97 04/11/25 00:00 Oxygen Delivery Room Air 04/10/25 19:50 [facility] MDM Narrative Medical decision making narrative: Patient presents with the above complaint. Initial vitals are remarkable for no significant abnormalities. Physical examination as noted above. Plan discussed: laboratory analysis, EKG, imaging. Patient ordered IVF, analgesia, antiemetic, antacid, continuous cardiac monitoring, continuous pulse oximetry. Patient was reassessed at the bedside. No changes in physical exam. Patient is in no acute distress. The patient has remained stable throughout the entire ED visit. Counseled patient regarding diagnostic results and potential diagnosis. Anticipatory guidance provided. Patient instructed to follow up with PCP within the next 3 days. Patient counseled on: false reassurance from an emergency department evaluation; no current evidence of a medical emergency; return immediately for any new, recurrent, worsening, concerning, or refractory symptoms. Medications discussed with patient. Additional verbal and printed discharge instructions were given and discussed with the patient. Patient verbally acknowledges understanding of condition and discharge instructions. All questions were answered to the patient's satisfaction. Patient is in agreement with the plan of care. The patient is stable for discharge and was discharged without incident. Differential Diagnosis Differential Diagnosis: Osteoarthritis, dehydration, metabolic derangement, pancreatitis, peptic ulcer disease, gastritis. Medical Records I have reviewed the following patient records and this information was taken into consideration when formulating the assessment and plan.: previous ER visits ( patient has multiple visits for chronic right knee pain.) Lab Data MDM Lab Attestation statement: I personally reviewed the patient's lab results. Lab results narrative: CBC reveals a hemoglobin of 12.3. Comprehensive metabolic panel reveals a BUN of 27, glucose 149, calcium of 8.2. Troponin is less than 0.012. COVID and influenza and RSV testing are negative. Ethyl alcohol is less than 10. Lipase is 344. Magnesium is 1.9. 04/10/25 20:54 04/10/25 20:54 Labs: Lab Results 04/10/25 04/10/25 Range/Units 20:54 20:54 WBC 6.0 (4.5-10.0) K/mm3 RBC 4.15 L (4.6-6.20) M/mm3 Hgb 12.3 L (14.0-18.0) g/dL Hct 39.0 L (42.0-52.0) % MCV 94.0 (80-100) fl MCH 29.6 (26-34) pg MCHC 31.5 L (32-36) g/dl RDW 13.2 (11.5-14.5) % Plt Count 230 (150-375) k/mm3 MPV 9.3 (7.4-10.4) fl Immature Gran % (Auto) 0.2 (0-0.5) % Neut % (Auto) 58.4 (45.5-73.1) % Lymph % (Auto) 32.3 (18.3-44.2) % Gulf % (Auto) 7.2 (2.6-8.5) % Eos % (Auto) 1.2 (0-4.4) % Baso % (Auto) 0.7 (0.2-1.2) % Lymph # (Auto) 1.93 (0.9-3.2) K/mm3 Gulf # (Auto) 0.4 (0.1-0.6) K/mm3 Eos # (Auto) 0.1 (0-0.3) K/mm3 Baso # (Auto) 0.0 (0.0-0.1) K/mm3 Abs Immat Gran (auto) 0.01 (0.00-0.031) K/mm3 Absolute Neuts (auto) 3.5 (1.3-6.7) K/mm3 Absolute Nucleated RBC 0.000 (0.0-0.012) K/mm3 Nucleated RBC % 0.0 (0.0-0.2) % Sodium 139 (137-145) mmol/L Potassium 3.7 (3.4-5.0) mmol/L Chloride 110 H (98-107) mmol/L Carbon Dioxide 24 (22-30) mmol/L Anion Gap 5 (4-12) mmol/L BUN 27 H (9-20) mg/dL Creatinine 0.97 (0.7-1.3) mg/dL Estim Creat Clear Calc Not Reportable Estimated GFR > 60 (59 - ) Glucose 149 H (65-110) mg/dL Calcium 8.2 L (8.4-10.2) mg/dL Magnesium 1.9 (1.6-2.3) mg/dL Total Bilirubin 0.5 (0.2-1.3) mg/dL AST 23 (17-59) U/L ALT 16 (6-50) U/L Alkaline Phosphatase 66 (38-126) U/L Troponin I < 0.012 Cancelled (0.000-0.034) ng/mL Total Protein 7.2 (6.3-8.2) g/dL Albumin 3.8 (3.5-5.1) g/dL Lipase 344 H (23-300) U/L Ethyl Alcohol < 10 (<10) mg/dL Influenza A (RT-PCR) Negative (Negative) Influenza B (RT-PCR) Negative (Negative) RSV (RT-PCR) Negative (Negative) SARS-CoV-2 RNA (RT-PCR) Negative (Negative) Imaging Data Radiologist's impression: ITS Impressions Chest X-Ray 04/10/25 20:19 IMPRESSION: 1. No acute pulmonary findings. Atherosclerotic aorta. ECG Data EKG #1: Attestation: I personally reviewed and interpreted this ECG as follows: ECG completion date: 04/10/25 ECG completion time: 20:00 Interpretation: Rate of 88, rhythm is sinus rhythm, axis is normal, no ST elevations or depressions, no significant changes when compared to old EKG on 02/20/2025. Discharge Plan Discharge Clinical Impression: Chronic pain of right knee, Osteoarthritis, Hungry Patient Disposition: Home Condition: Stable Instructions: Antibiotic Form, Osteoarthritis (ED), Chronic Pain (ED) Additional Instructions: Follow-up with your primary care physician in the next few days for reassessment, take your home medications as prescribed, return immediately to the emergency department for any new or concerning symptoms especially any emergent concerns for life, limb, eyesight. Patient Language: St Helen[place] Prescriptions: New albuterol sulfate 90 mcg/actuation aerosol powdr breath activated 2 inh inhalation Q4-6H PRN (Reason: shortness of breath or wheezing) Qty: 1 0RF No Action naproxen 500 mg tablet 500 mg PO BID PRN (Reason: Pain (Scale Score 1-3)) amoxicillin-pot clavulanate 875-125 mg tablet 1 tablet PO Q12H Qty: 14 0RF prednisone 20 mg tablet 40 mg PO DAILY Qty: 10 0RF albuterol sulfate 90 mcg/actuation HFA aerosol inhaler 1 inh inhalation QID PRN (Reason: shortness of breath or wheezing) Qty: 6.7 0RF lidocaine 5 % adhesive patch,medicated 1 patch topical DAILY Qty: 15 0RF Rx Instructions: leave on most painful area for up to 12 hrs naproxen 500 mg tablet 500 mg PO BID PRN (Reason: pain) Qty: 20 0RF azithromycin 250 mg tablet 250 mg PO DAILY 4 Days Qty: 4 0RF Rx Instructions: start on day 2 of therapy prednisone 20 mg tablet 40 mg PO DAILY 4 Days Qty: 8 0RF albuterol sulfate 90 mcg/actuation HFA aerosol inhaler 2 puff inhalation QID PRN (Reason: shortness of breath or wheezing) Qty: 8.5 0RF acetaminophen 500 mg capsule 500 mg PO Q6H PRN (Reason: pain) Qty: 14 0RF acetaminophen 500 mg capsule 1,000 mg PO Q6H PRN (Reason: pain) Qty: 20 0RF amoxicillin 500 mg capsule 1,000 mg PO Q8H 5 Days Qty: 30 0RF azithromycin 250 mg tablet See Rx Instructions .ROUTE .COMPLEX Qty: 6 0RF Rx Instructions: For 250 mg dose pack: take 500 mg today (day 1), then 250 mg for 4 days (days 2-5) benzonatate 200 mg capsule 200 mg PO TID PRN (Reason: cough) Qty: 20 0RF Follow-up/Referrals: PHYSICIAN,MERCHANDISING COORDINATOR [Primary Care Provider, Internal Medicine] - 3 Days Time of Disposition: 23:54
[2025-04-10 22:54] LABS: Magnesium 1.9 mg/dL (1.6-2.3)
[2025-04-10] MEDS: ONDANSETRON INJ 4 MG/2 ML VIAL IV PUSH (22:55)
[2025-04-10] MEDS: PANTOPRAZOLE SODIUM IV 40 MG VIAL IV PUSH (22:55)
[2025-04-10] MEDS: SODIUM CHLORIDE 0.9% IV 1,000 ML 999 ML IV CONT (22:55)
[2025-04-10] MEDS: HYDROcodone/acetaminophen (*CRX) 5-325 MG TABLET 1 TAB PO (22:56)
[2025-04-10 23:02] VITALS: BP 108/59; PULSE 83; RESP 27; TEMP 37.1
[2025-04-10 23:06] LABS: Lipase 344 U/L (23-300)
[2025-04-10 23:32] VITALS: BP 125/57; PULSE 82; RESP 16
[2025-04-11] VITALS: BP 115/63; PULSE 82; RESP 17; TEMP 36.6; O2SAT 97
[2025-04-11 00:15] VITALS: PULSE 98; RESP 18
[2025-04-11] MEDS: IPRATROPIUM 0.5 MG/ALBUTEROL SULFATE 2.5 MG (BASE) AMPUL.NEB 3 ML INHALATION (00:16)
[2025-04-11 00:18] VITALS: BP 118/61; PULSE 78; RESP 16; TEMP 36.6; O2SAT 98
== END 2025-04-11 00:34 | disposition home or self-care (01) ==
PROVIDERS: Emergency Provider Student in an Organized Health Care Education/Training Program
DX: M17.12 Unilateral primary osteoarthritis, left knee (principal); M25.561 Pain in right knee; G89.29 Other chronic pain; Z59.48 Other specified lack of adequate food; I50.9 Heart failure, unspecified; F17.210 Nicotine dependence, cigarettes, uncomplicated; Z20.822 Contact with and (suspected) exposure to COVID-19; Z59.00 Homelessness unspecified; F14.10 Cocaine abuse, uncomplicated
CPT/HCPCS: 36415; 71046; 80053; 82077; 83690; 83735; 84484; 85025; 87637; 93005; 94640; 96361; 96374; 96375; 99284; A9270; J2405; J2470; J7030

== ENCOUNTER 2025-04-11 22:59 | Emergency (ER) | payer MEDICARE, MEDICAID, SELFPAY ==
--- OUTSIDE RECORDS SUMMARY | 2025-04-11 23:00 | XMS_ITS | Clinical Summary ---
Author Organization [facility] Address [address] [address] Phone Care Team Providers Care Lathe Machine Operator Name Role Phone Provider, None Primary Care [...] Lnp-s, Pf, 3 0 Mcg/0.3 Ml Dose (DebtLESS Community) 06/05/2021 TDAP Vaccine 06/02/2020,01/02/2019,12/08/2016 Tuberculin Skin Test; [...] this topic Insurance MEDICAID [place] MEDICARE C [facility] Advance Directives * Full Code (Latest Code Status on File) Date Activated Date Inactivated Comments 11/26/2020 10:26 AM 07/22/2021 4:56 AM Care Teams Lathe Machine Operator Relationship Specialty Start Date End Date Provider, None [place] PCP - General 04/11/23 Provider, Unknown UNKNOWN 04/11/23
--- OUTSIDE RECORDS SUMMARY | 2025-04-11 23:00 | XMS_ITS | Encounter Summary ---
Author Organization [facility] Address [address] [place] [address] Phone Care Team Providers Care Receptionist Nurse Name Role Phone Yaw Sol MD Primary Care Provider [phone] Provider, Unknown Primary Care Provider Unavaila ble Provider, None Primary Care Provider Unavailabl e Provider, Unknown Unavailable Unavailable Reason for Visit * Reason Comments Medication Refill Encounter Details Date Type Department Care Team (Late st Contact Info) Description 06/25/2022 Refill [facility] [address] [place] [id number] Yaw Sol MD [address] [place] [address] Medication Refill Social History Tobacco Use Types [...] Na Bustamante RN - 06/28/2022 8:21 AM FISHER GILL NET Patient needs appointment. Medication failed the protocol, [...] 90 days and meeting all other requirements ER GILL NET documented in this encounter Plan of Treatment [...] documented as of this encounter Care Teams Receptionist Nurse Relationship Specialty Start Date End Date Yaw Sol MD PCP - General Family Medicine 06/18/20 10/18/22 Provider, Unknown UNKNOWN PCP - General 10/23/22 04/10/23 Provider, None [place] PCP - General 04/11/23 Provider, Unknown UNKNOWN 04/11/23 documented as of this encounter
--- OUTSIDE RECORDS SUMMARY | 2025-04-11 23:00 | XMS_ITS | Clinical Summary ---
Author Organization [facility] Address [address] [place] [address] Care Team Providers Care Form Raiser Name Role Phone Unavailable Primary Care Provider Unavailabl e Source Comments [facility],non-owned Affiliates and Associated Physician Practices is amultiple site organization consisting of ambulatory clinics and hospital sitesin [place], [place], [place] and [place]. This disclosure is being madepursuant to the Care Everywhere program and may not contain all information available regarding this patient. Last updated 18.[facility] Allergies No known active allergies Medications * [...] on file Legal Sex Male 4:51 PM NAVIGATING OFFICER Gender Identity Not on file Sexual Orientation Not on file Last Filed Vital Signs Vital Sign Reading Time Taken Comments Blood Pressure 116/62 06/06/2019 7:10 AM NAVIGATING OFFICER Pulse 61 06/06/2019 7:10 AM NAVIGATING OFFICER Temperature 36.1 C (96.9 F) 06/06/2019 7:10 AM NAVIGATING OFFICER Respiratory Rate 20 06/06/2019 10:14 AM NAVIGATING OFFICER Oxygen Saturation 99% 06/06/2019 7:10 AM NAVIGATING OFFICER Inhaled Oxygen Concentration - - Weight 77.1 kg (170 lb) 06/06/2019 7:10 AM NAVIGATING OFFICER Height 167.6 cm (5' 6) 06/06/2019 7:10 AM NAVIGATING OFFICER Body Mass Index 27.44 06/06/2019 7:10 AM NAVIGATING OFFICER Plan of Treatment Health Maintenance Due Date [...]
--- OUTSIDE RECORDS SUMMARY | 2025-04-11 23:00 | XMS_ITS | Encounter Summary ---
Author Organization [facility] Address [address] [place] [address] Phone Care Team Providers Care Dish Maker Name Role Phone Yaw Sol MD Primary Care Provider [phone] Provider, Unknown Primary Care Provider Unavaila ble Provider, None Primary Care Provider Unavailabl e Provider, Unknown Unavailable Unavailable Lanie Whitaker Unavailable Unavailab le Reason for Visit * Reason Comments Medication Refill Encounter Details Date Type Department Care Team (Late st Contact Info) Description 11/27/2021 Refill [facility] - Family Medicine [facility] [address] [place] [address] Darek Salamanca, RAFITA, NURSE REVIEWER [address] [address] Medication Refill Social History Tobacco Use Types [...] documented as of this encounter Care Teams Dish Maker Relationship Specialty Start Date End Date Yaw Sol MD PCP - General Family Medicine 06/18/20 10/18/22 Provider, Unknown UNKNOWN PCP - General 10/23/22 04/10/23 Provider, None [place] PCP - General 04/11/23 Provider, Unknown UNKNOWN 04/11/23 Lanie Whitaker, ARIES [place] Spectacle Truer 01/26/21 12/17/21 documented as of this encounter
--- OUTSIDE RECORDS SUMMARY | 2025-04-11 23:01 | XMS_ITS | Encounter Summary ---
Author Organization [facility] Address [address] [place] [address] Phone Care Team Providers Care Furnace Repairer Helper Name Role Phone Yaw Sol MD Primary Care Provider [phone] Provider, Unknown Primary Care Provider Unavaila ble Provider, None Primary Care Provider Unavailabl e Provider, Unknown Unavailable Unavailable Lanie Whitaker RAIL SIGNAL DESIGNER Unavailable Unavailab le Reason for Visit * Reason Comments Medication Refill Encounter Details Date Type Department Care Team (Late st Contact Info) Description 10/28/2021 Refill [facility] - Family Medicine [facility] [address] [place] [address] Yaw Sol MD [address] [place] [address] Medication Refill Social History Tobacco Use Types [...] [facility] 11/12/20 Office Visit Darek Salamanca, MARKETING GRAPHICS SPECIALIST, MORTGAGE LOAN PROCESSOR [facility] Show[facility] recent visits within past 365 days [...] [facility] 11/12/20 Office Visit Darek Salamanca APRN, MORTGAGE LOAN PROCESSOR [facility] Showing recent visits within past 365 [...] documented as of this encounter Care Teams Furnace Repairer Helper Relationship Specialty Start Date End Date Yaw Sol MD PCP - General Family Medicine 06/18/20 10/18/22 Provider, Unknown UNKNOWN PCP - General 10/23/22 04/10/23 Provider, None [place] PCP - General 04/11/23 Provider, Unknown UNKNOWN 04/11/23 Lanie Whitaker, RAIL SIGNAL DESIGNER [place] Reading Intervention Teacher 01/26/21 12/17/21 documented as of this encounter
--- OUTSIDE RECORDS SUMMARY | 2025-04-11 23:01 | XMS_ITS | Encounter Summary ---
Author Organization [facility] Address [address] [place] [address] Phone Care Team Providers Care Tire Mold Tester Name Role Phone Yaw Sol MD Primary Care Provider [phone] Provider, Unknown Primary Care Provider Unavaila ble Provider, None Primary Care Provider Unavailabl e Provider, Unknown Unavailable Unavailable Reason for Visit * Reason Comments Medication Refill Encounter Details Date Type Department Care Team (Late st Contact Info) Description 07/02/2022 Refill [facility] [address] [place] [phone] Yaw Sol MD [address] [place] [address] Medication Refill Social History Tobacco Use Types [...] Chey Crane RMA - 07/05/2022 9:19 AM TEST ADMINISTRATOR Mailed letter ADMINISTRATOR * Telephone Encounter - Kristina Cotton RN - 07/02/2022 5:19 PM CST Needs OV with PCP ADMINISTRATOR * Telephone Encounter - Kristina Cotton RN [...] LDL, HDLCHOLESTE, CHOLESTEROL, TRIGLYCRIDES, VLDL, CHDL, HDLNON ADMINISTRATOR documented in this encounter Plan of Treatment [...] as of this encounter Care Teams Tire Mold Tester Relationship Specialty Start Date End Date Yaw Sol MD PCP - General Family Medicine 06/18/20 10/18/22 Provider, Unknown UNKNOWN PCP - General 10/23/22 04/10/23 Provider, None [place] PCP - General 04/11/23 Provider, Unknown UNKNOWN 04/11/23 documented as of this encounter
--- OUTSIDE RECORDS SUMMARY | 2025-04-11 23:01 | XMS_ITS | Encounter Summary ---
Author Organization [facility] Address [address] [place] [address] Phone Care Team Providers Care Computing Machine Operator Name Role Phone Yaw Sol MD Primary Care Provider [phone] Provider, Unknown Primary Care Provider Unavaila ble Provider, None Primary Care Provider Unavailabl e Provider, Unknown Unavailable Unavailable Reason for Visit * Reason Comments Medication Refill Encounter Details Date Type Department Care Team (Late st Contact Info) Description 08/27/2022 Refill [facility] [address] [place] [phone] Yaw Sol MD [address] [place] [address] Medication Refill Social History Tobacco Use Types [...] Provider Dept 09/10/22 Appointment Yaw Sol MD [facility] Showing future appointments within next 90 days [...] documented as of this encounter Care Teams Computing Machine Operator Relationship Specialty Start Date End Date Yaw Sol MD PCP - General Family Medicine 06/18/20 10/18/22 Provider, Unknown UNKNOWN PCP - General 10/23/22 04/10/23 Provider, None [place] PCP - General 04/11/23 Provider, Unknown UNKNOWN 04/11/23 documented as of this encounter
--- OUTSIDE RECORDS SUMMARY | 2025-04-11 23:01 | XMS_ITS | Encounter Summary ---
Author Organization [facility] Address [address] [place] [address] Phone Care Team Providers Care Deputy County Attorney Name Role Phone Yaw Sol MD Primary Care Provider [phone] Provider, Unknown Primary Care Provider Unavaila ble Provider, None Primary Care Provider Unavailabl e Provider, Unknown Unavailable Unavailable Reason for Visit * Reason Comments Medication Refill Encounter Details Date Type Department Care Team (Late st Contact Info) Description 07/31/2022 Refill [facility] [address] [place] [phone] Yaw Sol MD [address] [place] [address] Medication Refill Social History Tobacco Use Types [...] documented as of this encounter Care Teams Deputy County Attorney Relationship Specialty Start Date End Date Yaw Sol MD PCP - General Family Medicine 06/18/20 10/18/22 Provider, Unknown UNKNOWN PCP - General 10/23/22 04/10/23 Provider, None [place] PCP - General 04/11/23 Provider, Unknown UNKNOWN 04/11/23 documented as of this encounter
--- OUTSIDE RECORDS SUMMARY | 2025-04-11 23:01 | XMS_ITS | Clinical Summary ---
Author Organization [facility] Address [address] [place] [address] Care Team Providers Care Grooving Machine Operator Name Role Phone Miscellaneous, Not [...] with motrin as needed Cerebrovascular accident (CVA) ([facility]) Assessment & Plan (10/14/2021 12:45 AM CDT): H/o L MCA CVA. Patient had expressive aphasia and right sided weakness from review of EMR. Unclear what residual deficits patient had. Patient also reports being admitted 1 month ago at [facility] for CVA. Will need to obtain records. [...] may need MRI to r/o new CVA. FUR FEEDER consulted. Will need to obtain records from patient's admission 1month ago at [facility]. Encounters Date Type Department Care Team Description 03/07/2025 5:39 AM SECOND WORKER - 03/07/2025 5:44 AM SECOND WORKER Emergency [facility] Emergency Department [address] [place] [address] Apolinar Mujica MD Malingering (Primary Dx); Aggressive behavior Discharge Disposition: Discharge to home or self care 02/26/2025 12:53 AM CDT - 02/26/2025 2:02 AM CDT Emergency [facility] Emergency Department [address] [place] [address] Arthritis (Primary Dx) Discharge Disposition: Discharge to home or self care 02/22/2025 4:54 PM CDT - 02/22/2025 7:02 PM CDT Emergency [facility] Emergency Department [address] [place] [address] Primary osteoarthritis of right knee (Primary Dx) [...] on file Legal Sex Male 7:03 PM SECOND WORKER Gender Identity Not on file Sexual Orientation Not on file Last Filed Vital Signs Vital Sign Reading Time Taken Comments Blood Pressure 121/68 03/07/2025 3:55 AM SECOND WORKER Pulse 67 03/07/2025 3:55 AM SECOND WORKER Temperature 36.7 C (98 F) 03/07/2025 3:55 AM SECOND WORKER Respiratory Rate 18 03/07/2025 3:55 AM SECOND WORKER Oxygen Saturation 100% 03/07/2025 3:55 AM SECOND WORKER Inhaled Oxygen Concentration - - Weight 79.4 kg (175 lb 0.7 oz) 03/07/2025 1:32 A M SECOND WORKER Height 167.6 cm (5' 5.98) 03/07/2025 1:32 AM CS T Body Mass Index 28.27 03/07/2025 1:32 AM SECOND WORKER Plan of Treatment Health Maintenance Due [...] OR 2 VIEWS ED 03/07/2025 2:29 AM SECOND WORKER XR KNEE RIGHT 1 OR 2 VIEWS ED Urgent/IP Urgent 02/22/2025 6:[address] ABDOMEN PELVIS W CONTRAST ED 05/24/2020 6:38 PM SECOND WORKER from Last 3 Months or Most Recently Relevant to Health Maintenance Results * XR Knee Right 1 or 2 Views (03/07/2025 2:29 AM SECOND WORKER) Anatomical Region Laterality Modality Lower Extremities, Knee Right Computed Radiography 03/07/2025 2:49 AM SECOND WORKER Impressions 03/07/2025 9:39 AM SECOND WORKER FINDINGS/IMPRESSION: No acute fracture or dislocation. Severe [...] Jessica Swartz M.D. Narrative 03/07/2025 9:39 AM SECOND WORKER EXAMINATION: XR KNEE RIGHT 1 OR 2 [...] Abdomen Pelvis W Contrast (05/24/2020 6:38 PM SECOND WORKER) Anatomical Region Laterality Modality Body N/A Computed Tomogra phy 05/24/2020 6:28 PM SECOND WORKER Impressions 05/24/2020 6:52 PM SECOND WORKER No acute inflammatory process is noted. No cholecystitis. Normal appendix. Diverticulosis without diverticulitis THIS IS AN ELECTRONICALLY VERIFIED FINAL REPORT 05/24/2020 6:48 PM - Electronically signed by Alvino Cruz M.D. NC: ME Report ID: [id number] Reading Location: [id number] [facility] 05/24/2020 6:52 PM SECOND WORKER [facility] Imaging Result Name: BRII CISSE Ordering Phys: TRI GÓMEZ Age: 69 Date of : 1950 Accession Number: [id number] Date of Service: 05/24/2020 Gender: M EXAM [...] Procedure Note Alvino Cruz MD - 05/24/2020 [facility] Imaging Result Name: BETITO BRII Flor Ordering Phys: TRI GÓMEZ Age: 69 Date of : 1950 Accession Number: [id number] Date of Service: 05/24/2020 Gender: M EXAM [...] Alvino Cruz M.D. NC: JESSIE Report ID: [id number] Reading Location: [id number] Tri Gómez MD IMG CT PROCEDURES F inal Result from Last 3 Months or Most Recently Relevant to Health Maintenance Insurance [facility] IDTX [facility] [place] [address] [facility] [place] [address] Advance Directives For more information, please contact: [phone] * Full Code (Latest Code Status on [...] 11:22 AM 09/24/2018 5:51 PM Care Teams Grooving Machine Operator Relationship Specialty [place] [address] [facility] [id number] [place] [address] PCP - General Family Medicine 05/24/20 Miscellaneous, Not In File 08/20/18
[2025-04-11 23:07] VITALS: BP 132/77; PULSE 72; RESP 18; TEMP 36.5; O2SAT 100
--- NOTE | 2025-04-11 23:12 | ECG_ITS ---
Test Date: 2025-04-11 23:24:23 Measurements Intervals [place] Rate: 66 P: 66 ID: [id number] QRS: 67 QRSD: 94 T: 72 QT: 386 QTc: 406 Interpretive Statements SINUS RHYTHM BASELINE ARTIFACT- I, AVL NORMAL ECG Compared to ECG 04/10/2025 20:00:41 No significant changes Electronically Signed On 04-12-2025 06:18:20 ANTIQUE FURNITURE REPRODUCER by Cody Stevens D.O.
[2025-04-11 23:35] LABS: Hematocrit 39.3 % (42.0-52.0); Hemoglobin 12.6 g/dL (14.0-18.0); Immature Granulocyte Percent A 0.2 % (0-0.5); Lymphocytes Absolute Auto 1.85 K/mm3 (0.9-3.2); Mean Corpuscular HGB Conc 32.1 g/dl (32-36); Mean Corpuscular Hemoglobin 30.1 pg (26-34); Mean Corpuscular Volume 94.0 fl (80-100); Nucleated Red Blood Cells Absolute Auto 0.000 K/mm3 (0.0-0.012); Nucleated Red Blood Cells Perc 0.0 % (0.0-0.2); Platelet Count Result 233 k/mm3 (150-375); Red Blood Count 4.18 M/mm3 (4.6-6.20); White Blood Count 5.7 K/mm3 (4.5-10.0)
[2025-04-11 23:47] LABS: INR 1.2; Prothrombin Time 15.4 Seconds (11.1-14.7)
[2025-04-11 23:48] LABS: Alanine Aminotransferase 12 U/L (6-50); Albumin Level 3.8 g/dL (3.5-5.1); Alkaline Phosphatase 68 U/L (38-126); Anion Gap 3 mmol/L (4-12); Aspartate Amino Transferase 22 U/L (17-59); Bilirubin,Total 0.6 mg/dL (0.2-1.3); Blood Urea Nitrogen 19 mg/dL (9-20); Calcium 8.5 mg/dL (8.4-10.2); Carbon Dioxide 25 mmol/L (22-30); Chloride 108 mmol/L (98-107); Estimated CRCL calculation 62 ml/min; Estimated Glomerular Filt Rate > 60; Glucose 81 mg/dL (65-110); Partial Thromboplastin Time 33.0 Seconds (22.3-36.8); Potassium 4.0 mmol/L (3.4-5.0); Sodium 136 mmol/L (137-145); Total Protein 7.1 g/dL (6.3-8.2)
[2025-04-12 00:05] LABS: Troponin I < 0.012 ng/mL (0.000-0.034)
--- NOTE | 2025-04-12 03:30 | PC.NURSE ---
Pt refused repeat VS and lab draw.
--- NOTE | 2025-04-12 07:03 | ED_ITS ---
HPI - Chest Pain General Chief Complaint: Chest Pain Stated Complaint: chest pain Time Seen by Provider: 04/12/25 07:01 History of Present Illness HPI narrative: 74-year-old male history of homelessness presents emergency department complaining of chest pain. Patient states that intermittent chest pain on the order of months. It is nonradiating no associated shortness of breath no diaphoresis no vomiting. Patient is requesting placed asleep. States he is currently having chest pain. No bea with exertion. Denies any infectious symptoms. No unintended weight loss per Related Data Home Medications ?Medication ?Instructions ?Recorded ?Confirmed ?Last Taken ?Type naproxen 500 mg tablet 500 mg PO BID PRN Pain (Scal e 12/01/23 12/01/23 Unknown History Score 1-3) Allergies Allergy/AdvReac Type Severity Reaction Status Date / Time No Known Allergies Allergy Verified 04/08/25 20:42 Review of Systems 2 Review of Systems: All systems reviewed & are unremarkable except as noted in HPI and below PMFSH Past Medical History Medical History Cocaine abuse Tobacco abuse Normocytic anemia History of depression History of anxiety History of CHF (congestive heart failure) Arthritis Surgical History Surgical History History of left knee replacement Social History Social History Smoking packs per day: 1 Smoking cigarettes per day: 20.0 Smoking status: Current every day smoker Alcohol intake: never Substance use: current Substance use type: crack/cocaine Last use: POSITIVE LABS ON ADMISSION Lack of Transportation: YES Lack of Food: Sometimes True Current Housing: I Do Not Have Housing Concerned About Future Housing: YES Difficulty Paying Gas/Electric Bills: YES Difficulty Paying for Meds: YES Currently Unemployed: YES Education: Don't Know Difficulty w/ Childcare or Family Care: No Gender identity (if verbalized by the patient): Male Spiritual care concerns: No Exam 2 Narrative: EXAMINATION OF ORGAN SYSTEMS/BODY AREAS: Constitutional: Vital signs per nursing GENERAL:No acute distress, non-toxic appearing. HEAD: Normal with no signs of head trauma. EYES: EOMI, conjunctiva normal ENT: Hearing grossly intact LUNGS: Nonlabored breathing. HEART: Regular rate and rhythm ABD: Soft, nontender to palpation EXT: Normal range of motion SKIN: No rashes or lesions. NEURO: Alert. No gross focal sensory or strength deficits. PSYCH: Normal affect Course Vital Signs Vital signs: Vital Signs Temperature 36.5 C 04/11/25 23:07 Pulse Rate 72 04/11/25 23:07 Respiratory Rate 18 04/11/25 23:07 Blood Pressure 132/77 04/11/25 23:07 Pulse Oximetry 100 04/11/25 23:07 Oxygen Delivery Room Air 04/11/25 23:07 Temperature 36.5 C 04/11/25 23:07 Pulse Rate 72 04/11/25 23:07 Respiratory Rate 18 04/11/25 23:07 Blood Pressure 132/77 04/11/25 23:07 Pulse Oximetry 100 04/11/25 23:07 Oxygen Delivery Room Air 04/11/25 23:07 [facility] Differential Diagnosis Differential Diagnosis: Differential diagnosis is atypical presentation of ACS versus encounter for secondary gain of [facility] verses is likely pneumothorax or peripheral pneumonia. He is PERC negative I do not have suspicion for pulmonary embolism. Is not acutely psychotic. Ultimately patient's EKG without ischemia, biomarkers are negative. Labs reviewed within acceptable limits. Chest x-ray without infiltrate or pneumothorax. He was given a place to sleep until the morning, case management saw the patient is given a list of warming shelters. He is otherwise discharged as poor baseline level of health. Lab Data [facility] Lab Attestation statement: I personally reviewed the patient's lab results. 04/11/25 23:28 04/11/25 23:28 Labs: Lab Results 04/11/25 Range/Units 23:28 WBC 5.7 (4.5-10.0) K/mm3 RBC 4.18 L (4.6-6.20) M/mm3 Hgb 12.6 L (14.0-18.0) g/dL Hct 39.3 L (42.0-52.0) % MCV 94.0 (80-100) fl MCH 30.1 (26-34) pg MCHC 32.1 (32-36) g/dl RDW 13.4 (11.5-14.5) % Plt Count 233 (150-375) k/mm3 MPV 8.9 (7.4-10.4) fl Immature Gran % (Auto) 0.2 (0-0.5) % Neut % (Auto) 58.3 (45.5-73.1) % Lymph % (Auto) 32.7 (18.3-44.2) % [place] % (Auto) 6.7 (2.6-8.5) % Eos % (Auto) 1.6 (0-4.4) % Baso % (Auto) 0.5 (0.2-1.2) % Lymph # (Auto) 1.85 (0.9-3.2) K/mm3 [place] # (Auto) 0.4 (0.1-0.6) K/mm3 Eos # (Auto) 0.1 (0-0.3) K/mm3 Baso # (Auto) 0.0 (0.0-0.1) K/mm3 Abs Immat Gran (auto) 0.01 (0.00-0.031) K/mm3 Absolute Neuts (auto) 3.3 (1.3-6.7) K/mm3 Absolute Nucleated RBC 0.000 (0.0-0.012) K/mm3 Nucleated RBC % 0.0 (0.0-0.2) % PT 15.4 H (11.1-14.7) Seconds INR 1.2 APTT 33.0 (22.3-36.8) Seconds Sodium 136 L (137-145) mmol/L Potassium 4.0 (3.4-5.0) mmol/L Chloride 108 H (98-107) mmol/L Carbon Dioxide 25 (22-30) mmol/L Anion Gap 3 L (4-12) mmol/L BUN 19 (9-20) mg/dL Creatinine 0.84 (0.7-1.3) mg/dL Estim Creat Clear Calc 62 ml/min Estimated GFR > 60 (59 - ) Glucose 81 (65-110) mg/dL Calcium 8.5 (8.4-10.2) mg/dL Total Bilirubin 0.6 (0.2-1.3) mg/dL AST 22 (17-59) U/L ALT 12 (6-50) U/L Alkaline Phosphatase 68 (38-126) U/L Troponin I < 0.012 (0.000-0.034) ng/mL Total Protein 7.1 (6.3-8.2) g/dL Albumin 3.8 (3.5-5.1) g/dL Lipase 181 (23-300) U/L Imaging Data Attestation: I personally reviewed and interpreted this imaging study as follows: My impression: Chest x-ray is without infiltrate pneumothorax or free air. Normal chest x-ray ECG Data EKG #1: Attestation: I personally reviewed and interpreted this ECG as follows: Interpretation: 12 lead EKG per my interpretation shows normal sinus rhythm at 66 beats per minute. Normal axis. Normal intervals. No evidence of ST-T segment elevation depression. Normal EKG. Discharge Plan Discharge Clinical Impression: Chest pain, Homeless Patient Disposition: Home Condition: Stable Instructions: Chest Pain (ED) Patient Language: Mauritanian Prescriptions: No Action naproxen 500 mg tablet 500 mg PO BID PRN (Reason: Pain (Scale Score 1-3)) amoxicillin-pot clavulanate 875-125 mg tablet 1 tablet PO Q12H Qty: 14 0RF prednisone 20 mg tablet 40 mg PO DAILY Qty: 10 0RF albuterol sulfate 90 mcg/actuation HFA aerosol inhaler 1 inh inhalation QID PRN (Reason: shortness of breath or wheezing) Qty: 6.7 0RF lidocaine 5 % adhesive patch,medicated 1 patch topical DAILY Qty: 15 0RF Rx Instructions: leave on most painful area for up to 12 hrs naproxen 500 mg tablet 500 mg PO BID PRN (Reason: pain) Qty: 20 0RF azithromycin 250 mg tablet 250 mg PO DAILY 4 Days Qty: 4 0RF Rx Instructions: start on day 2 of therapy prednisone 20 mg tablet 40 mg PO DAILY 4 Days Qty: 8 0RF albuterol sulfate 90 mcg/actuation HFA aerosol inhaler 2 puff inhalation QID PRN (Reason: shortness of breath or wheezing) Qty: 8.5 0RF acetaminophen 500 mg capsule 500 mg PO Q6H PRN (Reason: pain) Qty: 14 0RF acetaminophen 500 mg capsule 1,000 mg PO Q6H PRN (Reason: pain) Qty: 20 0RF amoxicillin 500 mg capsule 1,000 mg PO Q8H 5 Days Qty: 30 0RF azithromycin 250 mg tablet See Rx Instructions .ROUTE .COMPLEX Qty: 6 0RF Rx Instructions: For 250 mg dose pack: take 500 mg today (day 1), then 250 mg for 4 days (days 2-5) benzonatate 200 mg capsule 200 mg PO TID PRN (Reason: cough) Qty: 20 0RF albuterol sulfate 90 mcg/actuation aerosol powdr breath activated 2 inh inhalation Q4-6H PRN (Reason: shortness of breath or wheezing) Qty: 1 0RF Follow-up/Referrals: PHYSICIAN,FULL STACK NET DEVELOPER [Primary Care Provider, Internal Medicine] Time of Disposition: 07:26
[2025-04-12 20:26] LABS: Lipase 188 U/L (23-300)
== END 2025-04-12 08:09 | disposition home or self-care (01) ==
PROVIDERS: Emergency Medicine; Emergency Provider Emergency Medicine
DX: R07.9 Chest pain, unspecified (principal); I50.9 Heart failure, unspecified; F17.210 Nicotine dependence, cigarettes, uncomplicated; Z59.00 Homelessness unspecified
CPT/HCPCS: 36415; 80053; 83690; 84484; 85025; 85610; 85730; 93005; 99284

== ENCOUNTER 2025-04-21 21:01 | Emergency (ER) | payer MEDICARE, MEDICAID, SELFPAY ==
--- NOTE | ~2025-04-21 | XR_ITS ---
EXAMINATION: XR chest 1V DATE: 04/21/2025 21:30 INDICATION: Chest pain TECHNIQUE: frontal view of the chest was obtained. COMPARISON: Chest radiograph dated 04/10/2025 FINDINGS: Unchanged mild elevation the left hemidiaphragm. The lungs remain clear with no focal airspace opacities, pulmonary edema, pleural effusion or pneumothorax. The cardiomediastinal silhouette is normal. IMPRESSION: 1. No acute cardiopulmonary disease. Reviewed, dictated and finalized at location [facility]
--- NOTE | 2025-04-21 21:02 | ECG_ITS ---
Test Date: 2025-04-21 21:56:56 Measurements Intervals [place] Rate: 75 P: 72 MA: 202 QRS: 67 QRSD: 90 T: 71 QT: 380 QTc: 425 Interpretive Statements SINUS RHYTHM NORMAL ECG Compared to ECG 04/11/2025 23:24:23 No significant changes Electronically Signed On 04-22-2025 06:41:51 ORE BRIDGE OPERATOR by Cody Stevens D.O.
--- OUTSIDE RECORDS SUMMARY | 2025-04-21 21:03 | XMS_ITS | Clinical Summary ---
Author Organization [facility] Address [address] [place] [address] Care Team Providers Care Paper Roller Name Role Phone Unavailable Primary Care Provider Unavailabl e Source Comments [facility],non-owned Affiliates and Associated Physician Practices is amultiple site organization consisting of ambulatory clinics and hospital sitesin [place], [place], [place] and [place]. This disclosure is being madepursuant to the Care Everywhere program and may not contain all information available regarding this patient. Last updated 18.[facility] Allergies No known active allergies Medications * [...] on file Legal Sex Male 4:51 PM ADVERTISEMENT DISTRIBUTOR Gender Identity Not on file Sexual Orientation Not on file Last Filed Vital Signs Vital Sign Reading Time Taken Comments Blood Pressure 116/62 06/06/2019 7:10 AM ADVERTISEMENT DISTRIBUTOR Pulse 61 06/06/2019 7:10 AM ADVERTISEMENT DISTRIBUTOR Temperature 36.1 C (96.9 F) 06/06/2019 7:10 AM ADVERTISEMENT DISTRIBUTOR Respiratory Rate 20 06/06/2019 10:14 AM ADVERTISEMENT DISTRIBUTOR Oxygen Saturation 99% 06/06/2019 7:10 AM ADVERTISEMENT DISTRIBUTOR Inhaled Oxygen Concentration - - Weight 77.1 kg (170 lb) 06/06/2019 7:10 AM ADVERTISEMENT DISTRIBUTOR Height 167.6 cm (5' 6) 06/06/2019 7:10 AM ADVERTISEMENT DISTRIBUTOR Body Mass Index 27.44 06/06/2019 7:10 AM ADVERTISEMENT DISTRIBUTOR Plan of Treatment Health Maintenance Due Date [...]
--- OUTSIDE RECORDS SUMMARY | 2025-04-21 21:03 | XMS_ITS | Encounter Summary ---
Author Organization [facility] Address [address] [place] [address] Phone Care Team Providers Care Environmental Lead Name Role Phone Yaw Sol MD Primary Care Provider [phone] Provider, Unknown Primary Care Provider Unavaila ble Provider, None Primary Care Provider Unavailabl e Provider, Unknown Unavailable Unavailable Lanie Whitaker ASSOCIATE ENGINEER Unavailable Unavailab le Reason for Visit * Reason Comments Medication Refill Encounter Details Date Type Department Care Team (Late st Contact Info) Description 10/28/2021 Refill [facility] - Family Medicine [facility] [address] [place] [address] Yaw Sol MD [address] [place] [address] Medication Refill Social History Tobacco Use Types [...] [facility] 11/12/20 Office Visit Darek Salamanca, TOURIST INFORMATION OFFICER, NEWS CONTENT SPECIALIST [facility] Showing recent visits within past 365 days [...] [facility] 11/12/20 Office Visit Darek Salamanca APRN, NEWS CONTENT SPECIALIST [facility] Showing recent visits within past 365 days [...] documented as of this encounter Care Teams Environmental Lead Relationship Specialty Start Date End Date Yaw Sol MD PCP - General Family Medicine 06/18/20 10/18/22 Provider, Unknown UNKNOWN PCP - General 10/23/22 04/10/23 Provider, None [place] PCP - General 04/11/23 Provider, Unknown UNKNOWN 04/11/23 Lanie Whitaker, ASSOCIATE ENGINEER [place] Finisher [employer]board [employer] Plaster[employer] 01/26/21 12/17/21 documented as of this encounter
--- OUTSIDE RECORDS SUMMARY | 2025-04-21 21:03 | XMS_ITS | Encounter Summary ---
Author Organization [facility] Address [address] [place] [address] Phone Care Team Providers Care Early Childhood Education Worker Name Role Phone Yaw Sol MD Primary Care Provider [phone] Provider, Unknown Primary Care Provider Unavaila ble Provider, None Primary Care Provider Unavailabl e Provider, Unknown Unavailable Unavailable Reason for Visit * Reason Comments Medication Refill Encounter Details Date Type Department Care Team (Late st Contact Info) Description 07/31/2022 Refill [facility] [address] [place] [id number] Yaw Sol MD [address] [place] [address] Medication Refill Social History Tobacco Use Types [...] documented as of this encounter Care Teams Early Childhood Education Worker Relationship Specialty Start Date End Date Yaw Sol MD PCP - General Family Medicine 06/18/20 10/18/22 Provider, Unknown UNKNOWN PCP - General 10/23/22 04/10/23 Provider, None [place] PCP - General 04/11/23 Provider, Unknown UNKNOWN 04/11/23 documented as of this encounter
--- OUTSIDE RECORDS SUMMARY | 2025-04-21 21:03 | XMS_ITS | Encounter Summary ---
Author Organization [facility] Address [address] [place] [address] Phone Care Team Providers Care Intermediate Teacher Name Role Phone Yaw Sol MD Primary Care Provider [phone] Provider, Unknown Primary Care Provider Unavaila ble Provider, None Primary Care Provider Unavailabl e Provider, Unknown Unavailable Unavailable Lanie Whitaker Unavailable Unavailab le Reason for Visit * Reason Comments Medication Refill Encounter Details Date Type Department Care Team (Late st Contact Info) Description 11/27/2021 Refill [facility] - Family Medicine [facility] [address] [place] [address] Darek Salamanca, RAFITA, DIET KITCHEN COOK [address] [address] Medication Refill Social History Tobacco Use Types [...] documented as of this encounter Care Teams Intermediate Teacher Relationship Specialty Start Date End Date Yaw Sol MD PCP - General Family Medicine 06/18/20 10/18/22 Provider, Unknown UNKNOWN PCP - General 10/23/22 04/10/23 Provider, None [place] PCP - General 04/11/23 Provider, Unknown UNKNOWN 04/11/23 Lanie Whitaker, ARIES [place] Window/Distribution Clerk 01/26/21 12/17/21 documented as of this encounter
--- OUTSIDE RECORDS SUMMARY | 2025-04-21 21:03 | XMS_ITS | Clinical Summary ---
Author Organization [facility] Address [address] [place] [address] Care Team Providers Care Lace Burn Out Tender Name Role Phone Miscellaneous, Not In File [...] with motrin as needed Cerebrovascular accident (CVA) ([facility]) Assessment & Plan (10/14/2021 12:45 AM CDT): H/o L MCA CVA. Patient had expressive aphasia and right sided weakness from review of EMR. Unclear what residual deficits patient had. Patient also reports being admitted 1 month ago at [place] for CVA. Will need to obtain records. [...] may need MRI to r/o new CVA. WAREHOUSE ORDER FILLER consulted. Will need to obtain records from patient's admission 1month ago at [place]. Encounters Date Type Department Care Team Description 03/07/2025 5:39 AM POLICE PILOT - 03/07/2025 5:44 AM POLICE PILOT Emergency [facility] Emergency Department [address] [place] [address] Apolinar Mujica MD Malingering (Primary Dx); Aggressive behavior Discharge Disposition: Discharge to home or self care 02/26/2025 12:53 AM CDT - 02/26/2025 2:02 AM CDT Emergency [facility] Emergency Department [address] [place] [address] Arthritis (Primary Dx) Discharge Disposition: Discharge to home or self care 02/22/2025 4:54 PM CDT - 02/22/2025 7:02 PM CDT Emergency [facility] Emergency Department [address] [place] [address] Primary osteoarthritis of right knee (Primary Dx) [...] on file Legal Sex Male 7:03 PM POLICE PILOT Gender Identity Not on file Sexual Orientation Not on file Last Filed Vital Signs Vital Sign Reading Time Taken Comments Blood Pressure 121/68 03/07/2025 3:55 AM POLICE PILOT Pulse 67 03/07/2025 3:55 AM POLICE PILOT Temperature 36.7 C (98 F) 03/07/2025 3:55 AM POLICE PILOT Respiratory Rate 18 03/07/2025 3:55 AM POLICE PILOT Oxygen Saturation 100% 03/07/2025 3:55 AM POLICE PILOT Inhaled Oxygen Concentration - - Weight 79.4 kg (175 lb 0.7 oz) 03/07/2025 1:32 A M POLICE PILOT Height 167.6 cm (5' 5.98) 03/07/2025 1:32 AM CS T Body Mass Index 28.27 03/07/2025 1:32 AM POLICE PILOT Plan of Treatment Health Maintenance Due Date [...] OR 2 VIEWS ED 03/07/2025 2:29 AM POLICE PILOT XR KNEE RIGHT 1 OR 2 VIEWS ED Urgent/IP Urgent 02/22/2025 6:[address] ABDOMEN PELVIS W CONTRAST ED 05/24/2020 6:38 PM POLICE PILOT from Last 3 Months or Most Recently Relevant to Health Maintenance Results * XR Knee Right 1 or 2 Views (03/07/2025 2:29 AM POLICE PILOT) Anatomical Region Laterality Modality Lower Extremities, Knee Right Computed Radiography 03/07/2025 2:49 AM POLICE PILOT Impressions 03/07/2025 9:39 AM POLICE PILOT FINDINGS/IMPRESSION: No acute fracture or dislocation. Severe [...] Jessica Swartz M.D. Narrative 03/07/2025 9:39 AM POLICE PILOT EXAMINATION: XR KNEE RIGHT 1 OR 2 [...] Abdomen Pelvis W Contrast (05/24/2020 6:38 PM POLICE PILOT) Anatomical Region Laterality Modality Body N/A Computed Tomogra phy 05/24/2020 6:28 PM POLICE PILOT Impressions 05/24/2020 6:52 PM POLICE PILOT No acute inflammatory process is noted. No cholecystitis. Normal appendix. Diverticulosis without diverticulitis THIS IS AN ELECTRONICALLY VERIFIED FINAL REPORT 05/24/2020 6:48 PM - Electronically signed by Alvino Cruz M.D. NC: SD Report ID: [id number] Reading Location: [id number] [facility] 05/24/2020 6:52 PM POLICE PILOT [facility] Imaging Result Name: BRII CISSE Ordering Phys: TRI GÓMEZ Age: 69 Date of : 1950 Accession Number: [id number] Date of Service: 05/24/2020 Gender: M EXAM [...] Procedure Note Alvino Cruz MD - 05/24/2020 [facility] Imaging Result Name: BETITO BRII Flor Ordering Phys: TRI GÓMEZ Age: 69 Date of : 1950 Accession Number: [id number] Date of Service: 05/24/2020 Gender: M EXAM [...] Alvino Cruz M.D. NC: JESSIE Report ID: [id number] Reading Location: [id number] Tri Gómez MD IMG CT PROCEDURES F inal Result from Last 3 Months or Most Recently Relevant to Health Maintenance Insurance [facility]MN [facility] MEDICARE ADVANTAGE [facility] Address: [address] [address] [place] [address] IDPA [facility] MEDICARE ADVANTAGE [facility]IC[facility] Address: [facility] [address] [place] [address] Advance Directives For more information, please contact: [phone] * Full Code (Latest Code Status on [...] 11:22 AM 09/24/2018 5:51 PM Care Teams Lace Burn Out Tender Relationship Specialty [place] [address] [facility] [id number] [place] [address] PCP - General Family Medicine 05/24/20 Miscellaneous, Not In File 08/20/18
--- OUTSIDE RECORDS SUMMARY | 2025-04-21 21:03 | XMS_ITS | Encounter Summary ---
Author Organization [facility] Address [address] [place] [address] Phone Care Team Providers Care Cashier Receptionist Name Role Phone Yaw Sol MD Primary Care Provider [phone] Provider, Unknown Primary Care Provider Unavaila ble Provider, None Primary Care Provider Unavailabl e Provider, Unknown Unavailable Unavailable Reason for Visit * Reason Comments Medication Refill Encounter Details Date Type Department Care Team (Late st Contact Info) Description 06/25/2022 Refill [facility] [address] [place] [phone] Yaw Sol MD [address] [place] [address] Medication Refill Social History Tobacco Use Types [...] Na Bustamante RN - 06/28/2022 8:21 AM DYE RANGE TENDER Patient needs appointment. Medication failed the protocol, [...] 90 days and meeting all other requirements RANGE TENDER documented in this encounter Plan of Treatment [...] documented as of this encounter Care Teams Cashier Receptionist Relationship Specialty Start Date End Date Yaw Sol MD PCP - General Family Medicine 06/18/20 10/18/22 Provider, Unknown UNKNOWN PCP - General 10/23/22 04/10/23 Provider, None [place] PCP - General 04/11/23 Provider, Unknown UNKNOWN 04/11/23 documented as of this encounter
--- OUTSIDE RECORDS SUMMARY | 2025-04-21 21:03 | XMS_ITS | Encounter Summary ---
Author Organization [facility] Address [address] [place] [address] Phone Care Team Providers Care Photographer Motion Picture Name Role Phone Yaw Sol MD Primary Care Provider [phone] Provider, Unknown Primary Care Provider Unavaila ble Provider, None Primary Care Provider Unavailabl e Provider, Unknown Unavailable Unavailable Reason for Visit * Reason Comments Medication Refill Encounter Details Date Type Department Care Team (Late st Contact Info) Description 08/27/2022 Refill [facility] [address] [place] [phone] Yaw Sol MD [address] [place] [address] Medication Refill Social History Tobacco Use Types [...] Provider Dept 09/10/22 Appointment Yaw Sol MD [facility] Showing future appointments within next 90 [...] documented as of this encounter Care Teams Photographer Motion Picture Relationship Specialty Start Date End Date Yaw Sol MD PCP - General Family Medicine 06/18/20 10/18/22 Provider, Unknown UNKNOWN PCP - General 10/23/22 04/10/23 Provider, None [place] PCP - General 04/11/23 Provider, Unknown UNKNOWN 04/11/23 documented as of this encounter
--- OUTSIDE RECORDS SUMMARY | 2025-04-21 21:03 | XMS_ITS | Encounter Summary ---
Author Organization [facility] Address [address] [place] [address] Phone Care Team Providers Care Clinical Technologist Name Role Phone Yaw Sol MD Primary Care Provider [phone] Provider, Unknown Primary Care Provider Unavaila ble Provider, None Primary Care Provider Unavailabl e Provider, Unknown Unavailable Unavailable Reason for Visit * Reason Comments Medication Refill Encounter Details Date Type Department Care Team (Late st Contact Info) Description 07/02/2022 Refill [facility] [address] [place] [phone] Yaw Sol MD [address] [place] [address] Medication Refill Social History Tobacco Use Types [...] Chey Crane RMA - 07/05/2022 9:19 AM MARINE ELECTRONICS TECHNICIAN Mailed letter NE ELECTRONICS TECHNICIAN * Telephone Encounter - Kristina Cotton RN - 07/02/2022 5:19 PM CST Needs OV with PCP NE ELECTRONICS TECHNICIAN * Telephone Encounter - Kristina Cotton [...] LDL, HDLCHOLESTE, CHOLESTEROL, TRIGLYCRIDES, VLDL, CHDL, HDLNON NE ELECTRONICS TECHNICIAN documented in this encounter Plan of [...] as of this encounter Care Teams Clinical Technologist Relationship Specialty Start Date End Date Yaw Sol MD PCP - General Family Medicine 06/18/20 10/18/22 Provider, Unknown UNKNOWN PCP - General 10/23/22 04/10/23 Provider, None [place] PCP - General 04/11/23 Provider, Unknown UNKNOWN 04/11/23 documented as of this encounter
[2025-04-21 21:44] VITALS: BP 114/59; PULSE 80; RESP 18; TEMP 36.4; O2SAT 100
[2025-04-21] MEDS: ASPIRIN 81 MG CHEWABLE TABLET 324 MG PO (22:01)
[2025-04-21 22:25] LABS: Hematocrit 40.9 % (42.0-52.0); Hemoglobin 13.1 g/dL (14.0-18.0); Immature Granulocyte Percent A 0.3 % (0-0.5); Lymphocytes Absolute Auto 2.20 K/mm3 (0.9-3.2); Mean Corpuscular HGB Conc 32.0 g/dl (32-36); Mean Corpuscular Hemoglobin 29.5 pg (26-34); Mean Corpuscular Volume 92.1 fl (80-100); Nucleated Red Blood Cells Absolute Auto 0.000 K/mm3 (0.0-0.012); Nucleated Red Blood Cells Perc 0.0 % (0.0-0.2); Platelet Count Result 253 k/mm3 (150-375); Red Blood Count 4.44 M/mm3 (4.6-6.20); White Blood Count 6.0 K/mm3 (4.5-10.0)
[2025-04-21 22:36] LABS: INR 1.0; Prothrombin Time 13.7 Seconds (11.1-14.7)
[2025-04-21 22:37] LABS: Partial Thromboplastin Time 33.0 Seconds (22.3-36.8)
[2025-04-21 22:39] LABS: Alanine Aminotransferase 13 U/L (6-50); Albumin Level 4.1 g/dL (3.5-5.1); Alkaline Phosphatase 83 U/L (38-126); Anion Gap 7 mmol/L (4-12); Aspartate Amino Transferase 24 U/L (17-59); Bilirubin,Total 0.5 mg/dL (0.2-1.3); Blood Urea Nitrogen 24 mg/dL (9-20); Calcium 8.5 mg/dL (8.4-10.2); Carbon Dioxide 25 mmol/L (22-30); Chloride 108 mmol/L (98-107); Estimated Glomerular Filt Rate > 60; Glucose 89 mg/dL (65-110); Potassium 4.2 mmol/L (3.4-5.0); Sodium 140 mmol/L (137-145); Total Protein 7.9 g/dL (6.3-8.2)
[2025-04-21 22:48] LABS: Troponin I < 0.012 ng/mL (0.000-0.034)
[2025-04-21 23:02] LABS: Lipase 232 U/L (23-300)
[2025-04-22] VITALS (17 sets, daily range): BP systolic 99–130; BP diastolic 56–86; PULSE 60–74; RESP 10–22; TEMP 36.7; O2SAT 96–100
--- NOTE | 2025-04-22 00:46 | ECG_ITS ---
Test Date: 2025-04-22 00:54:12 Measurements Intervals [place] Rate: 62 P: 62 WV: 220 QRS: 65 QRSD: 90 T: 68 QT: 416 QTc: 425 Interpretive Statements SINUS RHYTHM WITH FIRST DEGREE AV BLOCK BASELINE ARTIFACT- I, II, III, AVR, AVL, AVF, V1-V6 BORDERLINE ECG Compared to ECG 04/21/2025 21:56:56 First degree AV block now present Electronically Signed On 04-22-2025 06:46:24 FOOD PRODUCTS TESTER by Cody Stevens D.O.
[2025-04-22 01:33] LABS: Troponin I < 0.012 ng/mL (0.000-0.034)
--- NOTE | 2025-04-22 02:21 | ED.GENADULT ---
HPI - General Adult General Chief complaint: Chest Pain Stated complaint: heart problem Time Seen by Provider: 04/22/25 01:21 History of Present Illness HPI narrative: Patient 74-year-old gentleman presents emergency department chief complaint of chest pain. Patient is currently homeless and was staying in the lobby of the hospital the patient decided to come to the emergency department and stated that he was having some chest discomfort Related Data Home Medications ?Medication ?Instructions ?Recorded ?Confirmed ?Last Taken ?Type naproxen 500 mg tablet 500 mg PO BID PRN Pain (Scale 12/01/23 12/01/23 Unknown History Score 1-3) Allergies Allergy/AdvReac Type Severity Reaction Status Date / Time No Known Allergies Allergy Verified 04/08/25 20:42 Review of Systems Review of Systems: A 10 system review of systems was completed on the patient and is negative except for what is stated in the HPI. Nursing and ancillary documentation was reviewed. [facility] Past Medical History Medical History Cocaine abuse Tobacco abuse Normocytic anemia History of depression History of anxiety History of CHF (congestive heart failure) Arthritis Surgical History Surgical History History of left knee replacement Social History Social History Smoking packs per day: 1 Smoking cigarettes per day: 20.0 Smoking status: Current every day smoker Alcohol intake: never Substance use: current Substance use type: crack/cocaine Last use: POSIT[facility] LABS ON ADMISSION Lack of Transportation: YES Lack of Food: Sometimes True Current Housing: I Do Not Have Housing Concerned About Future Housing: YES Difficulty Paying Gas/Electric Bills: YES Difficulty Paying for Meds: YES Currently Unemployed: YES Education: Don't Know Difficulty w/ Childcare or Family Care: No Gender identity (if verbalized by the patient): Male Spiritual care concerns: No Course Vital Signs Vital signs: Vital Signs Temperature 36.4 C L 04/21/25 21:44 Pulse Rate 80 04/21/25 21:44 Respiratory Rate 18 04/21/25 21:44 Blood Pressure 114/59 L 04/21/25 21:44 Pulse Oximetry 100 04/21/25 21:44 Oxygen Delivery Room Air 04/21/25 21:44 Temperature 36.7 C 04/22/25 00:47 Pulse Rate 61 04/22/25 02:01 Respiratory Rate 22 H 04/22/25 02:01 Blood Pressure 130/75 04/22/25 02:01 Pulse Oximetry 100 04/22/25 02:01 Oxygen Delivery Room Air 04/21/25 21:44 MDM Differential Diagnosis Differential Diagnosis: ACS, atypical chest pain, prison seeking behavior, COPD exacerbation, EKG showed no acute ischemic changes initial troponin was-3 hour troponin showed change The patient was observed in the emergency department will be discharged home Lab Data 04/21/25 22:06 04/21/25 22:06 Labs: Lab Results 04/21/25 04/22/25 Range/Units 22:06 01:03 WBC 6.0 (4.5-10.0) K/mm3 RBC 4.44 L (4.6-6.20) M/mm3 Hgb 13.1 L (14.0-18.0) g/dL Hct 40.9 L (42.0-52.0) % MCV 92.1 (80-100) fl MCH 29.5 (26-34) pg MCHC 32.0 (32-36) g/dl RDW 13.2 (11.5-14.5) % Plt Count 253 (150-375) k/mm3 MPV 9.1 (7.4-10.4) fl Immature Gran % (Auto) 0.3 (0-0.5) % Neut % (Auto) 56.7 (45.5-73.1) % Lymph % (Auto) 36.6 (18.3-44.2) % Cowley % (Auto) 4.5 (2.6-8.5) % Eos % (Auto) 1.2 (0-4.4) % Baso % (Auto) 0.7 (0.2-1.2) % Lymph # (Auto) 2.20 (0.9-3.2) K/mm3 Cowley # (Auto) 0.3 (0.1-0.6) K/mm3 Eos # (Auto) 0.1 (0-0.3) K/mm3 Baso # (Auto) 0.0 (0.0-0.1) K/mm3 Abs Immat Gran (auto) 0.02 (0.00-0.031) K/mm3 Absolute Neuts (auto) 3.4 (1.3-6.7) K/mm3 Absolute Nucleated RBC 0.000 (0.0-0.012) K/mm3 Nucleated RBC % 0.0 (0.0-0.2) % PT 13.7 (11.1-14.7) Seconds INR 1.0 APTT 33.0 (22.3-36.8) Seconds Sodium 140 (137-145) mmol/L Potassium 4.2 (3.4-5.0) mmol/L Chloride 108 H (98-107) mmol/L Carbon Dioxide 25 (22-30) mmol/L Anion Gap 7 (4-12) mmol/L BUN 24 H (9-20) mg/dL Creatinine 1.15 (0.7-1.3) mg/dL Estim Creat Clear Calc Not Reportable Estimated GFR > 60 (59 - ) Glucose 89 (65-110) mg/dL Calcium 8.5 (8.4-10.2) mg/dL Total Bilirubin 0.5 (0.2-1.3) mg/dL AST 24 (17-59) U/L ALT 13 (6-50) U/L Alkaline Phosphatase 83 (38-126) U/L Troponin I < 0.012 < 0.012 (0.000-0.034) ng/mL Total Protein 7.9 (6.3-8.2) g/dL Albumin 4.1 (3.5-5.1) g/dL Lipase 232 (23-300) U/L Discharge Plan Discharge Clinical Impression: Atypical chest pain Patient Disposition: Home Condition: Stable Instructions: Antibiotic Form, Chest Pain (ED) Patient Language: Mongolian Prescriptions: No Action naproxen 500 mg tablet 500 mg PO BID PRN (Reason: Pain (Scale Score 1-3)) amoxicillin-pot clavulanate 875-125 mg tablet 1 tablet PO Q12H Qty: 14 0RF prednisone 20 mg tablet 40 mg PO DAILY Qty: 10 0RF albuterol sulfate 90 mcg/actuation HFA aerosol inhaler 1 inh inhalation QID PRN (Reason: shortness of breath or wheezing) Qty: 6.7 0RF lidocaine 5 % adhesive patch,medicated 1 patch topical DAILY Qty: 15 0RF Rx Instructions: leave on most painful area for up to 12 hrs naproxen 500 mg tablet 500 mg PO BID PRN (Reason: pain) Qty: 20 0RF azithromycin 250 mg tablet 250 mg PO DAILY 4 Days Qty: 4 0RF Rx Instructions: start on day 2 of therapy prednisone 20 mg tablet 40 mg PO DAILY 4 Days Qty: 8 0RF albuterol sulfate 90 mcg/actuation HFA aerosol inhaler 2 puff inhalation QID PRN (Reason: shortness of breath or wheezing) Qty: 8.5 0RF acetaminophen 500 mg capsule 500 mg PO Q6H PRN (Reason: pain) Qty: 14 0RF acetaminophen 500 mg capsule 1,000 mg PO Q6H PRN (Reason: pain) Qty: 20 0RF amoxicillin 500 mg capsule 1,000 mg PO Q8H 5 Days Qty: 30 0RF azithromycin 250 mg tablet See Rx Instructions .ROUTE .COMPLEX Qty: 6 0RF Rx Instructions: For 250 mg dose pack: take 500 mg today (day 1), then 250 mg for 4 days (days 2-5) benzonatate 200 mg capsule 200 mg PO TID PRN (Reason: cough) Qty: 20 0RF albuterol sulfate 90 mcg/actuation aerosol powdr breath activated 2 inh inhalation Q4-6H PRN (Reason: shortness of breath or wheezing) Qty: 1 0RF Follow-up/Referrals: PHYSICIAN,LINING MACHINE TENDER [Primary Care Provider, Internal Medicine] Abilio Hendrix MD [Physician, Family Practice] Time of Disposition: 02:57
--- NOTE | 2025-04-22 03:38 | PC.NURSE ---
Patient had been discharged and patient refused to sign discharge papers. Patient then refused to get up and leave room. ED security was called to assist patient but patient became combative with security and PD was called. Patient being escorted out of the ED by Bruno CARMONA. Patient left with his belongings and discharge papers in hand with PD by his side.
== END 2025-04-22 03:40 | disposition home or self-care (01) ==
PROVIDERS: Emergency Provider Emergency Medicine
DX: R07.89 Other chest pain (principal); I50.9 Heart failure, unspecified; F17.210 Nicotine dependence, cigarettes, uncomplicated
CPT/HCPCS: 36415; 71045; 80053; 83690; 84484; 85025; 85610; 85730; 93005; 99284; A9270

== ENCOUNTER 2025-04-30 14:14 | Emergency (ER) | payer MEDICARE, MEDICAID, SELFPAY ==
--- OUTSIDE RECORDS SUMMARY | 2025-04-30 14:27 | XMS_ITS | Encounter Summary ---
Author Organization [facility] Address [address] [place] [address] Phone Care Team Providers Care Child Protection Specialist Name Role Phone Yaw Sol MD Primary Care Provider [phone] Provider, Unknown Primary Care Provider Unavaila ble Provider, None Primary Care Provider Unavailabl e Provider, Unknown Unavailable Unavailable Lanie Whitaker CUBING MACHINE TENDER Unavailable Unavailab le Reason for Visit * Reason Comments Medication Refill Encounter Details Date Type Department Care Team (Late st Contact Info) Description 10/28/2021 Refill [facility] - Family Medicine [facility] [address] [place] [address] Yaw Sol MD [address] [place] [address] Medication Refill Social History Tobacco Use Types [...] [facility] 11/12/20 Office Visit Darek Salamanca, JACKER, MOTOR BRAKEMAN [facility] Showing recent visits within past [...] [facility] 11/12/20 Office Visit Darek Salamanca APRN, MOTOR BRAKEMAN [facility] [place] [...] documented as of this encounter Care Teams Child Protection Specialist Relationship Specialty Start Date End Date Yaw Sol MD PCP - General Family Medicine 06/18/20 10/18/22 Provider, Unknown UNKNOWN PCP - General 10/23/22 04/10/23 Provider, None [place] PCP - General 04/11/23 Provider, Unknown UNKNOWN 04/11/23 Lanie Whitaker, CUBING MACHINE TENDER [place] Flap Curer 01/26/21 12/17/21 documented as of this encounter
--- OUTSIDE RECORDS SUMMARY | 2025-04-30 14:27 | XMS_ITS | Encounter Summary ---
Author Organization [facility] Address [address] [place] [address] Phone Care Team Providers Care Finishing Technician Name Role Phone Yaw Sol MD Primary Care Provider [phone] Provider, Unknown Primary Care Provider Unavaila ble Provider, None Primary Care Provider Unavailabl e Provider, Unknown Unavailable Unavailable Lanie Whitaker Unavailable Unavailab le Reason for Visit * Reason Comments Medication Refill Encounter Details Date Type Department Care Team (Late st Contact Info) Description 11/27/2021 Refill [facility] - Family Medicine [facility] [address] [place] [address] Darek Salamanca, RAFITA, OFFICE MACHINE SERVICER [address] [address] Medication Refill Social History Tobacco Use Types [...] documented as of this encounter Care Teams Finishing Technician Relationship Specialty Start Date End Date Yaw Sol MD PCP - General Family Medicine 06/18/20 10/18/22 Provider, Unknown UNKNOWN PCP - General 10/23/22 04/10/23 Provider, None [place] PCP - General 04/11/23 Provider, Unknown UNKNOWN 04/11/23 Lanie Whitaker, ARIES [place] Mds Rn 01/26/21 12/17/21 documented as of this encounter
--- OUTSIDE RECORDS SUMMARY | 2025-04-30 14:27 | XMS_ITS | Encounter Summary ---
Author Organization [facility] Address [address] [place] [address] Phone Care Team Providers Care Primary School Teacher Name Role Phone Yaw Sol MD Primary Care Provider [phone] Provider, Unknown Primary Care Provider Unavaila ble Provider, None Primary Care Provider Unavailabl e Provider, Unknown Unavailable Unavailable Reason for Visit * Reason Comments Medication Refill Encounter Details Date Type Department Care Team (Late st Contact Info) Description 06/25/2022 Refill [facility] [address] [place] [phone] Yaw Sol MD [address] [place] [address] Medication Refill Social History Tobacco Use Types [...] Na Bustamante RN - 06/28/2022 8:21 AM DRUG WORKER Patient needs appointment. Medication failed the protocol, [...] 90 days and meeting all other requirements WORKER documented in this encounter Plan of Treatment [...] documented as of this encounter Care Teams Primary School Teacher Relationship Specialty Start Date End Date Yaw Sol MD PCP - General Family Medicine 06/18/20 10/18/22 Provider, Unknown UNKNOWN PCP - General 10/23/22 04/10/23 Provider, None [place] PCP - General 04/11/23 Provider, Unknown UNKNOWN 04/11/23 documented as of this encounter
--- OUTSIDE RECORDS SUMMARY | 2025-04-30 14:27 | XMS_ITS | Clinical Summary ---
Author Organization [facility] Address [address] [place] [address] Care Team Providers Care Plant Engineering Supervisor Name Role Phone Marla Miner DO Primary Care Provider [phone] Social History Tobacco Use Types Packs/Day Years Used Date Smoking Tobacco: Never Assessed Sex and Gender Information Value Date Recorded Sex Assigned at Male 04/30/2025 1:28 PM PROFESSOR OF LAW Legal Sex Male 1:26 PM PROFESSOR OF LAW Gender Identity Not on file Sexual Orientation Not on file Plan of Treatment Upcoming Encounters Date Type Department Care Team (Late st Contact Info) Description 06/06/2025 9:40 AM PROFESSOR OF LAW Office Visit [facility] Family & Internal Medicine [address] [address] Marla Miner DO [address] [id number] Health Maintenance Due Date Last Done Comments Colorectal Cancer Screening Colonoscopy (10 Years) 1950 Hepatitis C 12/13/1969 DTaP, Tdap and Td Vaccines ( 1 - Tdap) 12/13/1970 Pneumococcal Vaccine: 50+ Ye ars (1 of 1 - PCV) 12/13/2001 Zoster Vaccines (1 of 2) 12/13/2001 COVID-19 Vaccine ( - 2024-2 6 season) 2024 Influenza Adult (#1) 2025 RSV Immunization or 60+ Years (1 - 1-dose 75+ series) 12/13/2026 Hepatitis A Vaccines Aged Out No long er eligible based on patient's age to complete this topic Meningococcal B Vaccine Aged Out No l onger eligible based on patient's age to complete this topic Meningococcal Vaccine Aged Out No shante vashti eligible based on patient's age to complete this topic RSV Immunizations Under 20 Months Aged Out No longer eligible based on patient's age to complete this topic Care Teams Plant Engineering Supervisor Relationship Specialty Start Date End Date Marla Miner DO [address] [place] [address] PCP - General FAMILY PRACTICE 04/30/25
--- OUTSIDE RECORDS SUMMARY | 2025-04-30 14:27 | XMS_ITS | Clinical Summary ---
Author Organization [facility] Address [address] [address] [address] Phone Care Team Providers Care Event Staff Name Role Phone Provider, None Primary Care [...] Lnp-s, Pf, 3 0 Mcg/0.3 Ml Dose ([employer]) 06/05/2021 TDAP Vaccine 06/02/2020,01/02/2019,12/08/2016 Tuberculin Skin Test; [...] this topic Insurance MEDICAID [place] MEDICARE C [facility] Advance Directives * Full Code (Latest Code Status on File) Date Activated Date Inactivated Comments 11/26/2020 10:26 AM 07/22/2021 4:56 AM Care Teams Event Staff Relationship Specialty Start Date End Date Provider, None [place] PCP - General 04/11/23 Provider, Unknown UNKNOWN 04/11/23
--- OUTSIDE RECORDS SUMMARY | 2025-04-30 14:28 | XMS_ITS | Encounter Summary ---
Author Organization [facility] Address [address] [place] [address] Phone Care Team Providers Care Manager Department Name Role Phone Yaw Sol MD Primary Care Provider [phone] Provider, Unknown Primary Care Provider Unavaila ble Provider, None Primary Care Provider Unavailabl e Provider, Unknown Unavailable Unavailable Reason for Visit * Reason Comments Medication Refill Encounter Details Date Type Department Care Team (Late st Contact Info) Description 08/27/2022 Refill [facility] Family [facility] [address] [place] [address] Yaw Sol MD [address] [place] [address] Medication Refill Social History Tobacco Use Types [...] Provider Dept 09/10/22 Appointment Yaw Sol MD [facility] Showing future appointments within next 90 [...] as of this encounter Care Teams Manager Department Relationship Specialty Start Date End Date Yaw Sol MD PCP - General Family Medicine 06/18/20 10/18/22 Provider, Unknown UNKNOWN PCP - General 10/23/22 04/10/23 Provider, None [place] PCP - General 04/11/23 Provider, Unknown UNKNOWN 04/11/23 documented as of this encounter
--- OUTSIDE RECORDS SUMMARY | 2025-04-30 14:28 | XMS_ITS | Clinical Summary ---
Author Organization [facility] Address [address] [place] [address] Care Team Providers Care Transportation Mechanic Name Role Phone Miscellaneous, Not In [...] with motrin as needed Cerebrovascular accident (CVA) ([facility] Assessment & Plan (10/14/2021 12:45 AM CDT): H/o L MCA CVA. Patient had expressive aphasia and right sided weakness from review of EMR. Unclear what residual deficits patient had. Patient also reports being admitted 1 month ago at [facility] for CVA. Will need to obtain records. [...] may need MRI to r/o new CVA. PUBLIC INFORMATION COORDINATOR consulted. Will need to obtain records from patient's admission 1month ago at [facility]. Encounters Date Type Department Care Team Description 03/07/2025 5:39 AM MACHINE BOSS - 03/07/2025 5:44 AM MACHINE BOSS Emergency [facility] Emergency Department [address] [place] [address] Apolinar Mujica MD Malingering (Primary Dx); Aggressive behavior Discharge Disposition: Discharge to home or self care 02/26/2025 12:53 AM CDT - 02/26/2025 2:02 AM CDT Emergency [facility] Emergency Department [address] [place] [address] Arthritis (Primary Dx) Discharge Disposition: Discharge to home or self care 02/22/2025 4:54 PM CDT - 02/22/2025 7:02 PM CDT Emergency [facility] Emergency Department [address] [place] [address] Primary osteoarthritis of right knee (Primary Dx) [...] on file Legal Sex Male 7:03 PM MACHINE BOSS Gender Identity Not on file Sexual Orientation Not on file Last Filed Vital Signs Vital Sign Reading Time Taken Comments Blood Pressure 121/68 03/07/2025 3:55 AM MACHINE BOSS Pulse 67 03/07/2025 3:55 AM MACHINE BOSS Temperature 36.7 C (98 F) 03/07/2025 3:55 AM MACHINE BOSS Respiratory Rate 18 03/07/2025 3:55 AM MACHINE BOSS Oxygen Saturation 100% 03/07/2025 3:55 AM MACHINE BOSS Inhaled Oxygen Concentration - - Weight 79.4 kg (175 lb 0.7 oz) 03/07/2025 1:32 A M MACHINE BOSS Height 167.6 cm (5' 5.98) 03/07/2025 1:32 AM CS T Body Mass Index 28.27 03/07/2025 1:32 AM MACHINE BOSS Plan of Treatment Health Maintenance Due Date [...] OR 2 VIEWS ED 03/07/2025 2:29 AM MACHINE BOSS XR KNEE RIGHT 1 OR 2 VIEWS ED Urgent/IP Urgent 02/22/2025 6:[address] ABDOMEN PELVIS W CONTRAST ED 05/24/2020 6:38 PM MACHINE BOSS from Last 3 Months or Most Recently Relevant to Health Maintenance Results * XR Knee Right 1 or 2 Views (03/07/2025 2:29 AM MACHINE BOSS) Anatomical Region Laterality Modality Lower Extremities, Knee Right Computed Radiography 03/07/2025 2:49 AM MACHINE BOSS Impressions 03/07/2025 9:39 AM MACHINE BOSS FINDINGS/IMPRESSION: No acute fracture or dislocation. Severe [...] Jessica Swartz M.D. Narrative 03/07/2025 9:39 AM MACHINE BOSS EXAMINATION: XR KNEE RIGHT 1 OR 2 [...] Abdomen Pelvis W Contrast (05/24/2020 6:38 PM MACHINE BOSS) Anatomical Region Laterality Modality Body N/A Computed Tomogra phy 05/24/2020 6:28 PM MACHINE BOSS Impressions 05/24/2020 6:52 PM MACHINE BOSS No acute inflammatory process is noted. No cholecystitis. Normal appendix. Diverticulosis without diverticulitis THIS IS AN ELECTRONICALLY VERIFIED FINAL REPORT 05/24/2020 6:48 PM - Electronically signed by Alvino Cruz M.D. [place]: [place] Report ID: [id number] Reading Location: [id number] [facility] 05/24/2020 6:52 PM MACHINE BOSS [facility] Imaging Result Name: BRII CISSE Ordering Phys: TRI GÓMEZ Age: 69 Date of : 1950 Accession Number: [id number] Date of Service: 05/24/2020 Gender: M EXAM [...] [facility] Result Name: BETITO BRII Flor Ordering Phys: TRI GÓMEZ Age: 69 Date of : 1950 Accession Number: [id number] Date of Service: 05/24/2020 Gender: M EXAM [...] Alvino Cruz M.D. [place]: JESSIE Report ID: [id number] Reading Location: [id number] Tri Gómez MD IMG CT PROCEDURES F inal Result from Last 3 Months or Most Recently Relevant to Health Maintenance Insurance [facility] MEDICARE ADVANTAGE [place] [facility] MEDICARE ADVANTAGE Advance Directives For more information, please contact: [phone] * Full Code (Latest Code Status on [...] 11:22 AM 09/24/2018 5:51 PM Care Teams Transportation Mechanic Relationship Specialty [place] [address] [facility] [id number] [place] [address] PCP - General Family Medicine 05/24/20 Miscellaneous, Not In File 08/20/18
--- OUTSIDE RECORDS SUMMARY | 2025-04-30 14:28 | XMS_ITS | Encounter Summary ---
Author Organization [facility] Address [address] [place] [address] Phone Care Team Providers Care Manager Business Planning Name Role Phone Yaw Sol MD Primary Care Provider [phone] Provider, Unknown Primary Care Provider Unavaila ble Provider, None Primary Care Provider Unavailabl e Provider, Unknown Unavailable Unavailable Reason for Visit * Reason Comments Medication Refill Encounter Details Date Type Department Care Team (Late st Contact Info) Description 07/31/2022 Refill [facility] [address] [place] [phone] Yaw Sol MD [address] [place] [address] Medication Refill Social History Tobacco Use Types [...] as of this encounter Care Teams Manager Business Planning Relationship Specialty Start Date End Date Yaw Sol MD PCP - General Family Medicine 06/18/20 10/18/22 Provider, Unknown UNKNOWN PCP - General 10/23/22 04/10/23 Provider, None [place] PCP - General 04/11/23 Provider, Unknown UNKNOWN 04/11/23 documented as of this encounter
--- OUTSIDE RECORDS SUMMARY | 2025-04-30 14:28 | XMS_ITS | Encounter Summary ---
Author Organization [facility] Address [address] [place] [address] Phone Care Team Providers Care Wilton Weaver Name Role Phone Yaw Sol MD Primary Care Provider [phone] Provider, Unknown Primary Care Provider Unavaila ble Provider, None Primary Care Provider Unavailabl e Provider, Unknown Unavailable Unavailable Reason for Visit * Reason Comments Medication Refill Encounter Details Date Type Department Care Team (Late st Contact Info) Description 07/02/2022 Refill [facility] Family Medicine [facility] [address] [place] [phone] Yaw Sol MD [address] [place] [address] Medication Refill Social History Tobacco Use Types [...] Chey Crane RMA - 07/05/2022 9:19 AM HOOP ROLLS OPERATOR Mailed letter ROLLS OPERATOR * Telephone Encounter - Kristina Cotton RN - 07/02/2022 5:19 PM CST Needs OV with PCP ROLLS OPERATOR * Telephone Encounter - Kristina Cotton [...] LDL, HDLCHOLESTE, CHOLESTEROL, TRIGLYCRIDES, VLDL, CHDL, HDLNON ROLLS OPERATOR documented in this encounter Plan of [...] documented as of this encounter Care Teams Wilton Weaver Relationship Specialty Start Date End Date Yaw Sol MD PCP - General Family Medicine 06/18/20 10/18/22 Provider, Unknown UNKNOWN PCP - General 10/23/22 04/10/23 Provider, None [place] PCP - General 04/11/23 Provider, Unknown UNKNOWN 04/11/23 documented as of this encounter
[2025-04-30 14:30] VITALS: BP 150/108; PULSE 68; RESP 17; TEMP 36.8; O2SAT 98
--- NOTE | 2025-04-30 16:27 | ED.LOWEXIN ---
HPI - Extremity Injury (Lower) General Chief Complaint: Extremity Injury, Lower Stated Complaint: problems with feet/need podiatry Time Seen by Provider: 04/30/25 16:28 Source: patient Mode of arrival: ambulatory Limitations: no limitations History of Present Illness HPI Narrative: Patient is a 74 y/o male who presents to the ED with needing podiatry referral. Friend at bedside assisted in providing information. Patient is well known to our facility. Currently homeless. History of polysubstance abuse. Friend reports that patient is trying to get in with a inside sales supervisor, but is unable to see anyone without a primary care doctor referral. Has an appointment to see a new primary care doctor on June 06. Requesting toenails be clipped. Related Data Home Medications ?Medication ?Instructions ?Recorded ?Confirmed ?Last Taken ?Type naproxen 500 mg tablet 500 mg PO BID PRN Pain (Scale 12/01/23 12/01/23 Unknown History Score 1-3) Allergies Allergy/AdvReac Type Severity Reaction Status Date / Time No Known Allergies Allergy Verified 04/08/25 20:42 Review of Systems Review of Systems: All systems reviewed & are unremarkable except as noted in HPI. All systems reviewed & are unremarkable except as noted in HPI and below PMFSH Past Medical History Medical History Cocaine abuse Tobacco abuse Normocytic anemia History of depression History of anxiety History of CHF (congestive heart failure) Arthritis Surgical History Surgical History History of left knee replacement Social History Social History Smoking packs per day: 1 Smoking cigarettes per day: 20.0 Smoking status: Current every day smoker Alcohol intake: never Substance use: current Substance use type: crack/cocaine Last use: POSITIVE LABS ON ADMISSION Lack of Transportation: YES Lack of Food: Sometimes True Current Housing: I Do Not Have Housing Concerned About Future Housing: YES Difficulty Paying Gas/Electric Bills: YES Difficulty Paying for Meds: YES Currently Unemployed: YES Education: Don't Know Difficulty w/ Childcare or Family Care: No Gender identity (if verbalized by the patient): Male Spiritual care concerns: No Exam Narrative: GENERAL: Mildly unkempt, non-toxic, in no acute distress. HEAD: Normocephalic, atraumatic. RESPIRATORY: Airway patent, respirations nonlabored. CARDIOVASCULAR: Regular rate and rhythm MUSCULOSKELETAL: Moves all extremities. No gross deformities. SKIN: Warm, dry, normal color. Elongated and curved/thickened toenails. No evidence of infection or tinea NEURO: A&O X3. Speech clear. Steady gait. No ataxic movements. PSYCHIATRIC: Appropriate mood and affect. Normal interaction. Course Vital Signs Vital signs: Vital Signs Temperature 98.3 F 04/30/25 14:30 Pulse Rate 68 04/30/25 14:30 Respiratory Rate 17 04/30/25 14:30 Blood Pressure 150/108 H 04/30/25 14:30 Pulse Oximetry 98 04/30/25 14:30 Oxygen Delivery Room Air 04/30/25 14:30 Temperature 98.3 F 04/30/25 14:30 Pulse Rate 68 04/30/25 14:30 Respiratory Rate 17 04/30/25 14:30 Blood Pressure 150/108 H 04/30/25 14:30 Pulse Oximetry 98 04/30/25 14:30 Oxygen Delivery Room Air 04/30/25 14:30 MDM MDM Narrative Medical decision making narrative: Patient given a list of primary care doctor and inside sales supervisor for follow-up. Advised no emergent conditions currently. No evidence of infection. Friend reports that she has made patient an appointment with a PCP on May 22 who will trim toenails in the office. Differential Diagnosis Differential Diagnosis: Toenail avulsion, tinea, cellulitis, elongated toenails Medical Records I have reviewed the following patient records and this information was taken into consideration when formulating the assessment and plan.: previous labs, previous ER visits, previous hospitalizations and previous clinic visits Discharge Plan Discharge Clinical Impression: Toenail deformity Patient Disposition: Home Condition: Stable Instructions: Antibiotic Form, Ingrown Nail (ED) Additional Instructions: Follow-up with primary care doctor and Podiatry for further evaluation. Patient Language: Kyrgyz Prescriptions: No Action naproxen 500 mg tablet 500 mg PO BID PRN (Reason: Pain (Scale Score 1-3)) amoxicillin-pot clavulanate 875-125 mg tablet 1 tablet PO Q12H Qty: 14 0RF prednisone 20 mg tablet 40 mg PO DAILY Qty: 10 0RF albuterol sulfate 90 mcg/actuation HFA aerosol inhaler 1 inh inhalation QID PRN (Reason: shortness of breath or wheezing) Qty: 6.7 0RF lidocaine 5 % adhesive patch,medicated 1 patch topical DAILY Qty: 15 0RF Rx Instructions: leave on most painful area for up to 12 hrs naproxen 500 mg tablet 500 mg PO BID PRN (Reason: pain) Qty: 20 0RF azithromycin 250 mg tablet 250 mg PO DAILY 4 Days Qty: 4 0RF Rx Instructions: start on day 2 of therapy prednisone 20 mg tablet 40 mg PO DAILY 4 Days Qty: 8 0RF albuterol sulfate 90 mcg/actuation HFA aerosol inhaler 2 puff inhalation QID PRN (Reason: shortness of breath or wheezing) Qty: 8.5 0RF acetaminophen 500 mg capsule 500 mg PO Q6H PRN (Reason: pain) Qty: 14 0RF acetaminophen 500 mg capsule 1,000 mg PO Q6H PRN (Reason: pain) Qty: 20 0RF amoxicillin 500 mg capsule 1,000 mg PO Q8H 5 Days Qty: 30 0RF azithromycin 250 mg tablet See Rx Instructions .ROUTE .COMPLEX Qty: 6 0RF Rx Instructions: For 250 mg dose pack: take 500 mg today (day 1), then 250 mg for 4 days (days 2-5) benzonatate 200 mg capsule 200 mg PO TID PRN (Reason: cough) Qty: 20 0RF albuterol sulfate 90 mcg/actuation aerosol powdr breath activated 2 inh inhalation Q4-6H PRN (Reason: shortness of breath or wheezing) Qty: 1 0RF Follow-up/Referrals: PHYSICIAN,BED TEACHER [Primary Care Provider, Internal Medicine] Time of Disposition: 16:40
--- OUTSIDE RECORDS SUMMARY | 2025-04-30 16:45 | XMS_ITS | Encounter Summary ---
Author Organization [facility] Address [address] [place] [address] Phone Care Team Providers Care System Safety Manager Name Role Phone Yaw Sol MD Primary Care Provider [phone] Provider, Unknown Primary Care Provider Unavaila ble Provider, None Primary Care Provider Unavailabl e Provider, Unknown Unavailable Unavailable Lanie Whitaker MULTICULTURAL INTERNSHIP Unavailable Unavailab le Reason for Visit * Reason Comments Medication Refill Encounter Details Date Type Department Care Team (Late st Contact Info) Description 10/28/2021 Refill [facility] - Family Medicine [facility] [address] [place] [address] Yaw Sol MD [address] [place] [address] Medication Refill Social History Tobacco Use Types [...] [facility] 11/12/20 Office Visit Darek Salamanca, TOLL BRIDGE ATTENDANT, AREA FIELD WORKER [facility] within past [...] MD [facility] 11/12/20 Office Visit Darek Salamnaca APRN, AREA FIELD WORKER [facility] Showing recent visits within past [...] documented as of this encounter Care Teams System Safety Manager Relationship Specialty Start Date End Date Yaw Sol MD PCP - General Family Medicine 06/18/20 10/18/22 Provider, Unknown UNKNOWN PCP - General 10/23/22 04/10/23 Provider, None [place] PCP - General 04/11/23 Provider, Unknown UNKNOWN 04/11/23 Lanie Whitaker, M[employer]ICULTURAL INTERNSHIP [place] Campus President 01/26/21 12/17/21 documented as of this encounter
--- OUTSIDE RECORDS SUMMARY | 2025-04-30 16:45 | XMS_ITS | Encounter Summary ---
Author Organization [facility] Address [address] [place] [address] Phone Care Team Providers Care Securities Underwriter Name Role Phone Yaw Sol MD Primary Care Provider Provider, Unknown Primary Care Provider Unavaila ble Provider, None Primary Care Provider Unavailabl e Provider, Unknown Unavailable Unavailable Reason for Visit * Reason Comments Medication Refill Encounter Details Date Type Department Care Team (Late st Contact Info) Description 07/31/2022 Refill [facility] [address] [place] [phone] Yaw Sol MD [address] [place] [address] Medication Refill Social History Tobacco Use Types [...] documented as of this encounter Care Teams Securities Underwriter Relationship Specialty Start Date End Date Yaw Sol MD PCP - General Family Medicine 06/18/20 10/18/22 Provider, Unknown UNKNOWN PCP - General 10/23/22 04/10/23 Provider, None [place] PCP - General 04/11/23 Provider, Unknown UNKNOWN 04/11/23 documented as of this encounter
--- OUTSIDE RECORDS SUMMARY | 2025-04-30 16:45 | XMS_ITS | Encounter Summary ---
Author Organization [facility] Address [address] [place] [address] Phone Care Team Providers Care Vacuum Cleaner Repairer Name Role Phone Yaw Sol MD Primary Care Provider [phone] Provider, Unknown Primary Care Provider Unavaila ble Provider, None Primary Care Provider Unavailabl e Provider, Unknown Unavailable Unavailable Lanie Whitaker Unavailable Unavailab le Reason for Visit * Reason Comments Medication Refill Encounter Details Date Type Department Care Team (Late st Contact Info) Description 11/27/2021 Refill [facility] - Family Medicine [facility] [address] [place] [address] Darek Salmaanca, RAFITA, BLUNGER [address] [address] Medication Refill Social History Tobacco Use Types [...] documented as of this encounter Care Teams Vacuum Cleaner Repairer Relationship Specialty Start Date End Date Yaw Sol MD PCP - General Family Medicine 06/18/20 10/18/22 Provider, Unknown UNKNOWN PCP - General 10/23/22 04/10/23 Provider, None [place] PCP - General 04/11/23 Provider, Unknown UNKNOWN 04/11/23 Lanie Whitaker, ARI[place] Nightclub Manager 01/26/21 12/17/21 documented as of this encounter
--- OUTSIDE RECORDS SUMMARY | 2025-04-30 16:45 | XMS_ITS | Encounter Summary ---
Author Organization [facility] Address [address] [place] [address] Phone Care Team Providers Care Business Process Coordinator Name Role Phone Yaw Sol MD Primary Care Provider [phone] Provider, Unknown Primary Care Provider Unavaila ble Provider, None Primary Care Provider Unavailabl e Provider, Unknown Unavailable Unavailable Reason for Visit * Reason Comments Medication Refill Encounter Details Date Type Department Care Team (Late st Contact Info) Description 08/27/2022 Refill [facility] Family Medicine [facility] [address] [place] [phone] Yaw Sol MD [address] [place] [address] Medication Refill Social History Tobacco Use Types [...] Provider Dept 09/10/22 Appointment Yaw Sol MD [facility] Showing future appointments within next 90 [...] as of this encounter Care Teams Business Process Coordinator Relationship Specialty Start Date End Date Yaw Sol MD PCP - General Family Medicine 06/18/20 10/18/22 Provider, Unknown UNKNOWN PCP - General 10/23/22 04/10/23 Provider, None [place] PCP - General 04/11/23 Provider, Unknown UNKNOWN 04/11/23 documented as of this encounter
--- OUTSIDE RECORDS SUMMARY | 2025-04-30 16:45 | XMS_ITS | Clinical Summary ---
Author Organization [facility] Address [address] [place] [address] Care Team Providers Care Flying Shear Operator Name Role Phone Marla Miner DO Primary Care Provider [phone] Social History Tobacco Use Types Packs/Day Years Used Date Smoking Tobacco: Never Assessed Sex and Gender Information Value Date Recorded Sex Assigned at Male 04/30/2025 1:28 PM OIL AND GAS LEASE PUMPER Legal Sex Male 1:26 PM OIL AND GAS LEASE PUMPER Gender Identity Not on file Sexual Orientation Not on file Plan of Treatment Upcoming Encounters Date Type Department Care Team (Late st Contact Info) Description 06/06/2025 9:40 AM OIL AND GAS LEASE PUMPER Office Visit [facility] Family & Internal Medicine [address] [address] Marla Miner DO [address] [id number] Health Maintenance Due Date Last Done Comments [...] age to complete this topic Care Teams Flying Shear Operator Relationship Specialty Start Date End Date Marla Miner DO [address] [place] [address] PCP - General FAMILY PRACTICE 04/30/25
--- OUTSIDE RECORDS SUMMARY | 2025-04-30 16:45 | XMS_ITS | Clinical Summary ---
Author Organization [facility] Address [address] [address] Phone Care Team Providers Care Livestock Handler Name Role Phone Provider, None Primary Care [...] Lnp-s, Pf, 3 0 Mcg/0.3 Ml Dose ([employer] [place]) 06/05/2021 TDAP Vaccine 06/02/2020,01/02/2019,12/08/2016 Tuberculin Skin Test; [...] this topic Insurance MEDICAID [place] MEDICARE C [facility] C [facility] Advance Directives * Full Code (Latest Code Status on File) Date Activated Date Inactivated Comments 11/26/2020 10:26 AM 07/22/2021 4:56 AM Care Teams Livestock Handler Relationship Specialty Start Date End Date Provider, None [place] PCP - General 04/11/23 Provider, Unknown UNKNOWN 04/11/23
--- OUTSIDE RECORDS SUMMARY | 2025-04-30 16:45 | XMS_ITS | Encounter Summary ---
Author Organization [facility] Address [address] [place] [address] Phone Care Team Providers Care Merchandise Marker Name Role Phone Yaw Sol MD Primary Care Provider [phone] Provider, Unknown Primary Care Provider Unavaila ble Provider, None Primary Care Provider Unavailabl e Provider, Unknown Unavailable Unavailable Reason for Visit * Reason Comments Medication Refill Encounter Details Date Type Department Care Team (Late st Contact Info) Description 06/25/2022 Refill [facility] [address] [place] [phone] Yaw Sol MD [address] [place] [address] Medication Refill Social History Tobacco Use Types [...] Na Bustamante RN - 06/28/2022 8:21 AM HUMAN SERVICES MANAGER Patient needs appointment. Medication failed the protocol, [...] 90 days and meeting all other requirements N SERVICES MANAGER documented in this encounter Plan of [...] documented as of this encounter Care Teams Merchandise Marker Relationship Specialty Start Date End Date Yaw Sol MD PCP - General Family Medicine 06/18/20 10/18/22 Provider, Unknown UNKNOWN PCP - General 10/23/22 04/10/23 Provider, None [place] PCP - General 04/11/23 Provider, Unknown UNKNOWN 04/11/23 documented as of this encounter
--- OUTSIDE RECORDS SUMMARY | 2025-04-30 16:45 | XMS_ITS | Clinical Summary ---
Author Organization [facility] Address [address] [place] [address] Care Team Providers Care Material Handler 2Nd Shift Name Role Phone Miscellaneous, Not In File [...] with motrin as needed Cerebrovascular accident (CVA) ([facility]) Assessment & Plan (10/14/2021 12:45 AM CDT): H/o L MCA CVA. Patient had expressive aphasia and right sided weakness from review of EMR. Unclear what residual deficits patient had. Patient also reports being admitted 1 month ago at [facility] for CVA. Will need to obtain records. [...] may need MRI to r/o new CVA. CHICKEN RAISER consulted. Will need to obtain records from patient's admission 1month ago at [facility]. Encounters Date Type Department Care Team Description 03/07/2025 5:39 AM FACILITY EXAMINER - 03/07/2025 5:44 AM FACILITY EXAMINER Emergency [facility] Emergency Department [address] [place] [address] Apolinar Mujica MD Malingering (Primary Dx); Aggressive behavior Discharge Disposition: Discharge to home or self care 02/26/2025 12:53 AM CDT - 02/26/2025 2:02 AM CDT Emergency [facility] Emergency Department [address] [place] [address] Arthritis (Primary Dx) Discharge Disposition: Discharge to home or self care 02/22/2025 4:54 PM CDT - 02/22/2025 7:02 PM CDT Emergency [facility] Emergency Department [address] [place] [address] Primary osteoarthritis of right knee (Primary Dx) [...] on file Legal Sex Male 7:03 PM FACILITY EXAMINER Gender Identity Not on file Sexual Orientation Not on file Last Filed Vital Signs Vital Sign Reading Time Taken Comments Blood Pressure 121/68 03/07/2025 3:55 AM FACILITY EXAMINER Pulse 67 03/07/2025 3:55 AM FACILITY EXAMINER Temperature 36.7 C (98 F) 03/07/2025 3:55 AM FACILITY EXAMINER Respiratory Rate 18 03/07/2025 3:55 AM FACILITY EXAMINER Oxygen Saturation 100% 03/07/2025 3:55 AM FACILITY EXAMINER Inhaled Oxygen Concentration - - Weight 79.4 kg (175 lb 0.7 oz) 03/07/2025 1:32 A M FACILITY EXAMINER Height 167.6 cm (5' 5.98) 03/07/2025 1:32 AM CS T Body Mass Index 28.27 03/07/2025 1:32 AM FACILITY EXAMINER Plan of Treatment Health Maintenance Due Date [...] OR 2 VIEWS ED 03/07/2025 2:29 AM FACILITY EXAMINER XR KNEE RIGHT 1 OR 2 VIEWS ED Urgent/IP Urgent 02/22/2025 6:[address] ABDOMEN PELVIS W CONTRAST ED 05/24/2020 6:38 PM FACILITY EXAMINER from Last 3 Months or Most Recently Relevant to Health Maintenance Results * XR Knee Right 1 or 2 Views (03/07/2025 2:29 AM FACILITY EXAMINER) Anatomical Region Laterality Modality Lower Extremities, Knee Right Computed Radiography 03/07/2025 2:49 AM FACILITY EXAMINER Impressions 03/07/2025 9:39 AM FACILITY EXAMINER FINDINGS/IMPRESSION: No acute fracture or dislocation. Severe [...] Jessica Swartz M.D. Narrative 03/07/2025 9:39 AM FACILITY EXAMINER EXAMINATION: XR KNEE RIGHT 1 OR 2 [...] Abdomen Pelvis W Contrast (05/24/2020 6:38 PM FACILITY EXAMINER) Anatomical Region Laterality Modality Body N/A Computed Tomogra phy 05/24/2020 6:28 PM FACILITY EXAMINER Impressions 05/24/2020 6:52 PM FACILITY EXAMINER No acute inflammatory process is noted. No cholecystitis. Normal appendix. Diverticulosis without diverticulitis THIS IS AN ELECTRONICALLY VERIFIED FINAL REPORT 05/24/2020 6:48 PM - Electronically signed by Alvino Cruz M.D. [place]: [place] Report ID: [id number] Reading Location: [id number] [facility] 05/24/2020 6:52 PM FACILITY EXAMINER [facility] Imaging Result Name: BRII CISSE Ordering Phys: TRI GÓMEZ Age: 69 Date of : 1950 Accession Number: [id number] Date of Service: 05/24/2020 Gender: M EXAM [...] Procedure Note Alvino Cruz MD - 05/24/2020 [facility] Imaging Result Name: BETITO BRII Flor Ordering Phys: TRI GÓMEZ Age: 69 Date of : 1950 Accession Number: [id number] Date of Service: 05/24/2020 Gender: M EXAM [...] Alvino Cruz M.D. [place]: JESSIE Report ID: [id number] Reading Location: [id number] Tri Gómez MD IMG CT PROCEDURES F inal Result from Last 3 Months or Most Recently Relevant to Health Maintenance Insurance [employer] [facility] MEDICARE [facility] Address: [address] [address] [place] [address] [facility] MEDICARE [facility] Address: [address] [address] [place] [address] Advance Directives For more information, please contact: [phone] * Full Code (Latest Code Status on [...] 11:22 AM 09/24/2018 5:51 PM Care Teams Material Handler 2Nd Shift Relationship Specialty [place] [address] [facility] [id number] [place] [address] PCP - General Family Medicine 05/24/20 Miscellaneous, Not In File 08/20/18
--- OUTSIDE RECORDS SUMMARY | 2025-04-30 16:45 | XMS_ITS | Encounter Summary ---
Author Organization [facility] Address [address] [place] [address] Phone Care Team Providers Care Graduate Teaching Associate Name Role Phone Yaw Sol MD Primary Care Provider [phone] Provider, Unknown Primary Care Provider Unavaila ble Provider, None Primary Care Provider Unavailabl e Provider, Unknown Unavailable Unavailable Reason for Visit * Reason Comments Medication Refill Encounter Details Date Type Department Care Team (Late st Contact Info) Description 07/02/2022 Refill [facility] #2 [place] [phone] Yaw Sol MD [address] [place] [address] Medication Refill Social History Tobacco Use Types [...] Chey Crane RMA - 07/05/2022 9:19 AM MMI TEACHER Mailed letter TEACHER * Telephone Encounter - Kristina Cotton RN - 07/02/2022 5:19 PM CST Needs OV with PCP TEACHER * Telephone Encounter - Kristina Cotton RN [...] LDL, HDLCHOLESTE, CHOLESTEROL, TRIGLYCRIDES, VLDL, CHDL, HDLNON TEACHER documented in this encounter Plan of Treatment [...] documented as of this encounter Care Teams Graduate Teaching Associate Relationship Specialty Start Date End Date Yaw Sol MD PCP - General Family Medicine 06/18/20 10/18/22 Provider, Unknown UNKNOWN PCP - General 10/23/22 04/10/23 Provider, None [place] PCP - General 04/11/23 Provider, Unknown UNKNOWN 04/11/23 documented as of this encounter
== END 2025-04-30 16:58 | disposition home or self-care (01) ==
PROVIDERS: Emergency Provider Physician Assistant
DX: L60.8 Other nail disorders (principal); Z59.00 Homelessness unspecified; I50.9 Heart failure, unspecified; M19.90 Unspecified osteoarthritis, unspecified site; F17.210 Nicotine dependence, cigarettes, uncomplicated; Z86.2 Personal history of diseases of the blood and blood-forming organs and certain disorders involving the immune mechanism; Z96.652 Presence of left artificial knee joint
CPT/HCPCS: 99282